=== PATIENT | female | born 1945 | race Caucasian/White ===

== ENCOUNTER 2024-08-06 08:25 | Outpatient (CLI) | payer MEDICARE, OTHER, SELFPAY ==
--- NOTE | ~2024-08-06 | CT_ITS ---
CT Scan of the Chest without Contrast: Clinical Indication: Interstitial lung disease Technique: Contiguous sections were acquired throughout the chest without intravenous contrast. Dose reduction technique was used on this scan by utilizing automated exposure control and iterative recon struction technique. The dose-length product (DLP) was 112.02 mGy-cm. Findings: There is no evidence of any significant mediastinal, hilar or axillary lymphadenopathy. There are ath erosclerotic calcifications of the aorta and coronary arteries. There is no evidence of pleural or pericardial effusion. There are extensive chronic interstitial disease, with peripheral and basilar predominance. There is a probable reticulation, interstitial thickening and architectural distortion, with mild bibasilar br onchiolectasis and early honeycomb formation. Images through the upper abdomen reveal no abnormalities. Mild T10 compression fracture present, poss ibly acute. Impression: Extensive chronic interstitial disease most compatible with UIP, significantly progressed since 2016. Mild T10 compression fracture, possibly acute. Correlate clinically. Reviewed, dictated and finalized at [facility]. Impression: Extensive chronic interstitial disease most compatible with UIP, significantly progressed since 07/14/2016. Mild T10 compression fracture, possibly acute. Correlate clinically.
--- OUTSIDE RECORDS SUMMARY | 2024-08-06 08:36 | XMS_ITS | Encounter Summary ---
Author Organization [facility] Address [address] [place] [address] Phone Care Team Providers Care Can Solderer Name Role Phone Naila Marroquin MD Primary Care Provider [phone]- [phone] Janine Bañuelos RN Unavailable UnaJohn Paul Sawant MD Unavailable [phone] Sindy Armstrong RN Unavailable Darlene vailable Reason for Referral * Procedure (Routine) - Closed Specialty Diagnoses / Procedures Referred By Jus lin Referred To Contact Diagnoses ILD (interstitial lung disease) (HCC) Procedures Pulmonary Function Test -[facility] Adult PFT Lab- [facility]; Spirometry, Oxygen Assessment Titration Lesli Richard MD [address] [place] [address] Phone: tel: fax: Referral ID Status Reason Start Date Expiration Date Visits Re quested Visits Authorized [id number] Closed 10/17/2022 11/16/2023 1 1 Reason for Visit * Procedure (Routine) - Closed Specialty Diagnoses / Procedures Referred By Jus lin Referred To Contact Diagnoses ILD (interstitial lung disease) (HCC) Procedures Pulmonary Function Test -[facility] Adult PFT Lab- [facility]; Spirometry, Oxygen Assessment Titration Lesli Richard MD [address] [facility] [facility] [address] [place] [address] Phone: tel: fax: Referral ID Status Reason Start Date Expiration Date Visits Re quested Visits Authorized [id number] Closed 10/17/2022 11/16/2023 1 1 Encounter Details Date Type Department Care Team (Latest Contact Info) Description 11/29/2022 9:24 AM CDT Hospital Encounter [facility] PFT Lab 10 [facility] [address] [place] [address] ILD (interstitial lung disease) ([facility]) Social History Tobacco Use Types Packs/Day Years Used Date Smoking Tobacco: Former Cigarettes Q uit: 1975 Smokeless Tobacco: Never Alcohol Use Standard Drinks/Week Comments Yes 5 (1 standard drink = 0.6 oz pur e alcohol) Social Connection and Isolat ion Panel [NHANES] Answer Date Recorded In a typical week, how many times do you talk on the phone with family, friends, or neighbors? More than three times a week 01/25/2023 How often do you get togethe r with friends or relatives? More than three times a week 01/25/2023 How often do you attend chur ch or yazdanism services? Never 01/25/2023 Do you belong to any clubs o r organizations such as anglican groups, unions, fraternal or athletic groups, or [...] on file Legal Sex Female 8:29 PM PROGRAM THERAPIST Gender Identity Female 09/24/2021 1:08 PM CDT Sexual Orientation Not on file Occupation Industry Job Start Date Job End Date Retired Not on file Not on file Not on file documented as of this encounter Functional Status * Audit-C Score Answer Date of Assessment Author 1 [...] on one occasion? Never 03/07/2023 1:29 PM PROGRAM THERAPIST Mackay, Jackie, ALUMNI COORDINATOR documented as of this encounter Plan of Treatment Not on file documented as of this encounter Procedures Procedure Name Priority Date/Time Associated Diagnosis Comments PULMONARY FUNCTION TEST (PFT) Routine 11/29/2022 10:00 AM CDT ILD (interstitial lung disease) (HCC) documented in this encounter Results * Pulmonary Function Test - (11/29/2022 10:00 AM CDT) FVC PRE 1.35 L [facility] FVC %PRE PRED 54 % [facility] FEV1 PRE 1.25 L [facility] FEV1 %PRE PRED 64 % [facility] FEV1/FVC PRE 92.6 % [facility] Anatomical Region Laterality Modality PFT 11/29/2022 9:27 AM CDT Narrative 12/04/2022 10:49 AM CDT Table formatting from the original result was not included. [facility] Division of Pulmonary & Critical Care Medicine [address] [place] [address]; [place] [address] [facility]; [place] [address]; [phone] Pulmonary Function Laboratory Pulmonary Stress Test Simple/Oxygen [...] Work [distance (m) x body wt (kg)]: 92343 kg.m (normal >60,000kg.m) Oxygen required to maintain [...] with the written final report. PFT performed at:->[facility] Adult [facility]FT [facility]- [facility] Procedure:->Spirometry Procedure:->Oxygen Assessment Titration Lesli Richard MD PFT ORDERABLES Final Result [...] days ago. 05/06/2023 05/06/2023 05/16/2023 3:05 AM PROGRAM THERAPIST COVID: Recovered Comment:Added based on recent COVID infection. 05/16/2023 05/23/2023 08/14/2023 3:05 AM C DT documented as of this encounter Care Teams Can Solderer Relationship Specialty Start Date End Date Naila Marroquin MD [address] [facility] [address] [place] [address] PCP - General 07/21/17 Janine Bañuelos, ophthalmology technician Nurse 08/02/18 John Paul Springer MD Consulting Physician Orthopedic Surgery 12/05/19 Sindy Armstrong, RN Registered Nurse Pulmonary Disease 03/23/22 documented as of this encounter
--- OUTSIDE RECORDS SUMMARY | 2024-08-06 08:36 | XMS_ITS | Encounter Summary ---
Author Organization [facility] Address [address] [place] [address] Phone Care Team Providers Care Appliance Assembler Name Role Phone Naila Marroquin MD Primary Care Provider [phone] Janine Bañuelos RN Unavailable UnavaJohn Paul Gillette MD Unavailable [phone] Sindy Armstrong RN Unavailable Darlene vailable Reason for Referral * Procedure (Routine) - Closed Specialty Diagnoses / Procedures Referred By Jus lin Referred To Contact Diagnoses ILD (interstitial lung disease) (HCC) Procedures Pulmonary Function Test -[facility]- [facility]; Spirometry, Oxygen Assessment Titration Lesli Richard MD [address] [place] [address] Phone: tel: fax: Referral ID Status Reason Start Date Expiration Date Visits Re quested Visits Authorized [id number] Closed 11/29/2022 12/29/2023 1 1 TING CONTROL CLERK Reason for Visit * Procedure (Routine) - Closed Specialty Diagnoses / Procedures Referred By Jus t Referred To Contact Diagnoses ILD (interstitial lung disease) (HCC) Procedures Pulmonary Function Test -[facility]- [facility]; Spirometry, Oxygen Assessment Titration Lesli Richard MD [address] [facility] [address] [place] [address] Phone: tel: fax: Referral ID Status Reason Start Date Expiration Date Visits Re quested Visits Authorized [id number] Closed 11/29/2022 12/29/2023 1 1 Encounter Details Date Type Department Care Team (Latest Contact Info) Description 03/21/2023 9:42 AM AUDITING CONTROL CLERK Hospital Encounter [facility] PFT Lab [address] [facility] [address] [place] [address] ILD (interstitial lung disease) ([facility] Social History Tobacco Use [...] often do you attend chur ch or jain services? Never 01/25/2023 Do you belong to any clubs o r organizations such as restorationism groups, unions, fraternal or athletic groups, or [...] on file Legal Sex Female 8:29 PM AUDITING CONTROL CLERK Gender Identity Female 09/24/2021 1:08 PM CDT [...] FUNCTION TEST (PFT) Routine 03/21/2023 10:53 AM AUDITING CONTROL CLERK ILD (interstitial lung disease) (HCC) documented in this encounter Results * Pulmonary Function Test - (03/21/2023 10:53 AM AUDITING CONTROL CLERK) FVC PRE 1.[address] [facility] FVC %PRE PRED 56 % [facility] FEV1 PRE 1.[address] [facility] FEV1 %PRE PRED 71 % [facility] FEV1/FVC PRE 96.9 % [facility] Anatomical Region Laterality Modality PFT 03/21/2023 9:59 AM AUDITING CONTROL CLERK Impressions 03/24/2023 3:13 PM AUDITING CONTROL CLERK There is a moderate restrictive ventilatory defect. [...] and %HbO2 is age dependent. However, the [facility] Pulmonary Function Laboratory defines hypoxemia as a PO2 <55 or a %HbO2 <89. Narrative 03/24/2023 3:13 PM AUDITING CONTROL CLERK Table formatting from the original result was not included. [facility] Division of Pulmonary & Critical Care Medicine [address] [place] [address]; [facility]; [place] [address]; [phone] Pulmonary Function Laboratory Pulmonary Stress Test Simple/Oxygen [...] Work [distance (m) x body wt (kg)]: 88401 kg.m (normal >60,000kg.m) Oxygen required to maintain [...] the written final report. PFT performed at:->[facility] Adult PFT Lab- [facility] Procedure:->Spirometry Procedure:->Oxygen Assessment Titration Pulmonary [...] days ago. 05/06/2023 05/06/2023 05/16/2023 3:05 AM AUDITING CONTROL CLERK COVID: Recovered Comment:Added based on recent COVID infection. 05/16/2023 05/23/2023 08/14/2023 3:05 AM C DT documented as of this encounter Care Teams Appliance Assembler Relationship Specialty Start Date End Date Naila Marroquin MD [address] [facility] [address] [place] [address] PCP - General 07/21/17 Janine Bañuelos, triage registered nurse Nurse 08/02/18 John Paul Springer MD Consulting Physician Orthopedic Surgery 12/05/19 Sindy Armstrong, RN Registered Nurse Pulmonary Disease 03/23/22 documented as of this encounter
--- OUTSIDE RECORDS SUMMARY | 2024-08-06 08:36 | XMS_ITS | Clinical Summary ---
Author Organization [facility] Address [address] [place] [address] Care Team Providers Care Carton Forming Machine Helper Name Role Phone Naila Marroquin MD Primary Care Provider [phone] Allergies Active Allergy Reactions Criticality Noted Date Comments Codeine Nausea and Vomiting 06/29/2017 Nitrofurantoin Shortness of Breath High 05/09/2017 Benzonatate Anaphylaxis High 06/29/2017 Medications levothyroxine 88 MCG tablet Take 88 mcg by mouth daily. Active topiramate (TOPAMAX) 50 MG Tab Take 1 tablet by mouth 2 (two) times daily. Active sertraline 100 MG tablet Take 100 mg by mouth daily. Active ziprasidone 20 MG capsule Take 20 mg by mouth 2 (two) times daily with meals. Active lamotrigine 150 MG tablet Take 150 mg by mouth daily. Active alprazolam 2 MG tablet Take 2 mg by mouth nightly as needed. Active zolpidem 10 MG tablet Take 10 mg by mouth nightly as needed for Sleep. Active cetirizine 10 MG tablet Take 10 mg by mouth daily. Active Isosorbide Mononitrate CR 120 MG TABLET SR 24 HR Take 1 tablet by mouth every morning. Active budesonide-formo terol 160-4.5 MCG/ACT inhaler Inhale 2 puffs into the lungs 2 (two) times daily. Active fluticasone-salm eterol 100-50 MCG/DOSE inhaler Inhale 1 puff into the lungs 2 (two) times daily. Active rosuvastatin (CRESTOR) 40 MG tablet Take 1 tablet (40 mg total) by mouth daily. Active pregabalin (LYRICA) 50 MG capsule Take 1 capsule (50 mg total) by mouth 3 (three) times daily. 06/12/2022 Active montelukast (SINGULAIR) 10 MG tablet Take 1 tablet (10 mg total) by mouth daily. 06/30/2022 Active pantoprazole EC (PROTONIX) 40 MG tablet Take 1 tablet (40 mg total) by mouth daily. Active topiramate (TOPAMAX) 25 MG capsule Take 1 capsule (25 mg total) by mouth 2 (two) times daily. Active famotidine (PEPCID) 40 MG tablet Take 1 tablet (40 mg total) by mouth daily. Active ezetimibe (ZETIA) 10 MG tablet Take 1 tablet (10 mg total) by mouth daily. 06/11/2022 Active dicyclomine (BENTYL) 10 MG capsule Take 1 capsule (10 mg total) by mouth 4 (four) times daily. Active cyanocobalamin (B-12) 1000 MCG/ML injection Inject 1 mL (1,000 mcg total) into the muscle. 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 Osteopenia 01/11/2023 Family History Medical History Relation Comments Cancer Father Diabetes Father Heart Disease Father Hypertension Father Cancer Mother Diabetes Mother Heart Disease Mother Hypertension Mother Relation Status Comments Father Mother Social History Tobacco Use Types Packs/Day Years Used Date Smoking Tobacco: Former Cigarettes Q uit: 1975 Smokeless Tobacco: Never Tobacco Cessation:Counseling Given: Not Answered Alcohol Use Standard Drinks/Week Comments Yes 0 (1 standard drink = 0.6 oz pur e alcohol) OCASSIONALLY Comments No Sex and Gender Information Value Date Recorded Sex Assigned at Not on file Legal Sex Female 7:15 PM CDT Gender Identity Not on file Sexual Orientation Not on file Last Filed Vital Signs Vital Sign Reading Time Taken Comments Blood Pressure 101/47 03/03/2023 1:35 PM CDT Pulse 67 03/03/2023 1:35 PM CDT Temperature 36.3 C (97.3 F) 03/03/2023 1:35 PM CDT Respiratory Rate 16 03/03/2023 1:35 PM CDT Oxygen Saturation 99% 03/03/2023 1:35 PM CDT Inhaled Oxygen Concentration - - Weight 57.6 kg (127 lb) 08/07/2022 1:54 PM CDT Height 157.5 cm (5' 2 ) 08/07/2022 1:54 PM CDT Body Mass Index 23.23 08/07/2022 1:54 PM CDT Plan of Treatment Health Maintenance Due Date Last Done Comments Hepatitis C 1963 DTaP, Tdap and Td Vaccines (1 - Tdap) 1964 Annual Medicare Wellness Visit 01/06/2012 Dexa Scan (General) 01/06/2012 Zoster Vaccines (2 of 2) 05/20/2019 03/25/2019 RSV Immunization or 60+ Years (1 - 1-dose 75+ series) 2022 COVID-19 Vaccine (2 - season) 2023 07/06/2020 Pneumococcal Vaccine: 65+ Years Completed 03/13/2018, 02/03/2017, 03/01/2016, Additional history exists Meningococcal B Vaccine Aged Out No l onger eligible based on patient's age to complete this topic Meningococcal Vaccine Aged Out No leandra bartolome eligible based on patient's age to complete this topic RSV Immunizations Under 20 Months Aged Out No longer eligible based on patient's age to complete this topic Insurance [facility] MEDICARE Care Teams Carton Forming Machine Helper Relationship Specialty Start Date End Date Naila Marroquin MD PCP - General 11/25/16
--- OUTSIDE RECORDS SUMMARY | 2024-08-06 08:36 | XMS_ITS | Encounter Summary ---
Author Organization [facility] Address [address] [place] [address] Care Team Providers Care Fiberglass Fabricator Name Role Phone Naila Marroquin MD Primary Care Provider [phone] Encounter Details Date Type Department Care Team (Late st Contact Info) Description 01/11/2023 Therapy Plan [facility] Infusion Services [facility] [place] [address] Naila Marroquin MD [address] [place] [id number] Social History Tobacco Use Types Packs/Day Years Used Date Smoking Tobacco: Former Cigarettes Q uit: 1975 Smokeless Tobacco: Never Alcohol Use Standard Drinks/Week Comments Yes 0 (1 standard drink = 0.6 oz pur e alcohol) OCASSIONALLY Comments No Sex and Gender Information Value Date Recorded Sex Assigned at Not on file Legal Sex Female 7:15 PM CDT Gender Identity Not on file Sexual Orientation Not on file documented as of this encounter Plan of Treatment Not on file documented as of this encounter Visit Diagnoses Diagnosis Osteopenia- Primary Disorder of bone and cartilage, unspecified documented in this encounter Care Teams Fiberglass Fabricator Relationship Specialty Start Date End Date Naila Marroquin MD PCP - General 11/25/16 documented as of this encounter
--- OUTSIDE RECORDS SUMMARY | 2024-08-06 08:37 | XMS_ITS | Encounter Summary ---
Author Organization [facility] Address [address] [place] [address] Phone Care Team Providers Care Chemotherapist Name Role Phone Naila Marroquin MD Primary Care Provider [phone] Janine Bañuelos RN Unavailable UnavaJohn Paul Gillette MD Unavailable [phone] Sindy Armstrong RN Unavailable Darlene vailable Reason for Referral * Procedure (Routine) - Closed Specialty Diagnoses / Procedures Referred By Contac t Referred To Contact Diagnoses ILD (interstitial lung disease) (HCC) Procedures Pulmonary Function Test -[facility]- [facility]; Spirometry, Oxygen Assessment Titration Lesli Richard MD [address] [place] [address] Phone: tel: fax: Referral ID Status Reason Start Date Expiration Date Visits Re quested Visits Authorized [id number] Closed 03/21/2023 04/19/2024 1 1 Reason for Visit * Procedure (Routine) - Closed Specialty Diagnoses / Procedures Referred By Contac t Referred To Contact Diagnoses ILD (interstitial lung disease) (HCC) Procedures Pulmonary Function Test -[facility]- [facility]; Spirometry, Oxygen Assessment Titration Lesli Richard MD [address] [facility] [address] [place] [address] Phone: tel: fax: Referral ID Status Reason Start Date Expiration Date Visits Re quested Visits Authorized [id number] Closed 03/21/2023 04/19/2024 1 1 Encounter Details Date Type Department Care Team (Latest Contact Info) Description 07/18/2023 9:06 AM CDT Hospital Encounter [facility] PFT Lab [address] [facility] [address] [place] [address] ILD (interstitial lung disease) ([facility]) Social History Tobacco Use Types Packs/Day Years [...] on file Legal Sex Female 8:29 PM ASP DEVELOPER Gender Identity Female 09/24/2021 1:08 PM CDT [...] 9:43 AM CDT) FVC PRE 1.25 L [facility] FVC %PRE PRED 52 % [facility] FEV1 PRE 1.16 L [facility] FEV1 %PRE PRED 63 % [facility] FEV1/FVC PRE 92.6 % [facility] Anatomical Region Laterality Modality PFT 07/18/2023 9:09 [...] and %HbO2 is age dependent. However, the [facility] Pulmonary Function Laboratory defines hypoxemia as a PO2 <55 or a %HbO2 <89. Narrative 07/19/2023 8:01 PM CDT Table formatting from the original result was not included. [facility] Division of Pulmonary & Critical Care Medicine [address] [place] [address]; [place] [facility]; [place] [address]; [phone] Pulmonary Function Laboratory Pulmonary Stress Test Simple/Oxygen [...] Work [distance (m) x body wt (kg)]: 05080 kg.m (normal >60,000kg.m) Oxygen required to maintain [...] written final report. PFT performed at:->[facility] Adult PFT Lab- [facility] Procedure:->Spirometry Procedure:->Oxygen Assessment Titration Pulmonary Function Test Interpretation SPIROMETRY: The FEV-I and FVC are reduced in a pattern suggestive of a restrictive abnormality. However, measurement of lung volumes is suggested to confirm this if clinically indicated. FLOW VOLUME LOOPS: The inspiratory loop is appropriate for the expiratory flow abnormality. 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 05/16/2023 05/23/2023 08/14/2023 3:05 AM C DT documented as of this encounter Care Teams Chemotherapist Relationship Specialty Start Date End Date Naila Marroquin MD [address] [facility] [address] [place] [address] PCP - General 07/21/17 Janine Bañuelos, tree girdler Nurse 08/02/18 John Paul Springer MD Consulting Physician Orthopedic Surgery 12/05/19 Sindy Armstrong, ALEXANDRA Registered Nurse Pulmonary Disease 03/23/22 documented as of this encounter
--- OUTSIDE RECORDS SUMMARY | 2024-08-06 08:37 | XMS_ITS | Clinical Summary ---
Author Organization [facility] al Address [address] [place] [address] Care Team Providers Care Ticket Machine Operator Name Role Phone Naila Marroquin MD Primary Care Provider [phone] Janine Bañuelos RN Unavailable Unajose martini John Paul David MD Unavailable Sindy Armstrong RN Unavailable Darlene vailable Allergies Active Allergy Reactions Criticality Noted Date Comments Benzonatate Nausea & Vomiting,Shortness of breath,Rash High 06/29/2017 Breathing Difficulty Codeine Nausea And Vomiting,Shortness of breath,Stomach upset,Unknown High 05/31/2012 Stomach/GI Upset Hydrocodone Other (See comments) Low 11/20/2019 causes little blood spots under my skin Nitrofurantoin Anaphylaxis,Joint pain,Shortness of breath,Unknown High 05/31/2012 Breathing Difficulty Nitrofurantoin Monohyd/M-Cryst Anaphylaxis High 10/27/2020 Medications montelukast (SINGULAIR) 10 mg tablet Take 1 tablet (10 mg total) by mouth nightly Active cyanocobalamin (Vitamin B-12) 1,000 mcg/mL injectionIndicatio ns:Vitamin B12 Deficiency Inject 1 mL (1,000 mcg total) into the muscle as instructed every 30 (thirty) days q monthly Active ALPRAZolam (XANAX) 1 mg tabletIndications: anxiety Take 1 tablet (1 mg total) by mouth 4 (four) times a day as needed for anxiety 3 8 Active polyethylene glycol (MIRALAX) 17 gram packetIndications: constipation Take 1 packet (17 g total) by mouth nightly Active cetirizine (ZyrTEC) 10 mg tabletIndications: Allergic Rhinitis Take 1 tablet (10 mg total) by mouth daily Active sertraline (ZOLOFT) 50 mg tabletIndications: depression Take 1 tablet (50 mg total) by mouth every morning 1 9 Active topiramate (TOPAMAX) 50 mg tabletIndications: depression Take 2 tablets (100 mg total) by mouth daily Active zolpidem (AMBIEN) 10 mg tabletIndications: Sleep-Onset Insomnia Take 1 tablet (10 mg total) by mouth nightly 0 Active ezetimibe (ZETIA) 10 mg tablet Take 1 tablet (10 mg total) by mouth daily 30 tablet 11 1 Active acetaminophen (TYLENOL) 500 mg tablet Take 1 tablet (500 mg total) by mouth every 8 (eight) hours as needed for pain Active aspirin 81 mg enteric coated tablet Take 1 tablet (81 mg total) by mouth daily Active ziprasidone (GEODON) 20 mg capsule Take 1 capsule (20 mg total) by mouth nightly Active pantoprazole DR (PROTONIX) 40 mg EC tablet Take 1 tablet (40 mg total) by mouth daily Active famotidine (PEPCID) 40 mg tablet Take 1 tablet (40 mg total) by mouth nightly Active immune glob,js caprylate,IgG, (GAMUNEX IV) Infuse into a venous catheter as directed Infusion every 28 days for autoimmune disease Active rosuvastatin (CRESTOR) 40 mg tablet Take 1 tablet (40 mg total) by mouth daily 1 Active inhalational spacing device spacer 1 each as needed (with inhaler) 1 each 2 Active pregabalin (LYRICA) 50 mg capsule Take 1 capsule (50 mg total) by mouth 2 (two) times a day Active denosumab (Prolia) 60 mg/mL syringe Every 6 months 3 Active ergocalciferol (VITAMIN D) 50,000 unit capsule 3 Active levothyroxine (SYNTHROID) 75 mcg tablet Take 1 tablet (75 mcg total) by mouth every morning 3 Active albuterol HFA (PROVENTIL HFA,VENTOLIN HFA,PROAIR HFA) 90 mcg/actuation inhaler Inhale 2 puffs every 6 (six) hours as needed for wheezing 1 each 5 4 Active nitroglycerin (NITROSTAT) 0.[address] 1 tablet (0.4 mg total) under the tongue every 5 (five) minutes as needed for chest pain 25 tablet 4 Active ziprasidone (GEODON) 40 mg capsule Take 1 capsule (40 mg total) by mouth nightly 4 Active ipratropium (ATROVENT) 21 mcg (0.03 %) nasal sprayIndications:N on-allergic rhinitis Administer 2 sprays into each nostril every 6 (six) hours 90 mL 3 4 Active BD Integra Syringe 3 mL 25 gauge x 5/8 syringe 4 Active isosorbide mononitrate ER (IMDUR) 60 mg 24 hr tablet Take 1 tablet (60 mg total) by mouth daily 4 Active traZODone (DESYREL) 50 mg tablet Take 1 tablet (50 mg total) by mouth 3 (three) times a day 4 Active carboxymethylcellu lose-glycern 0.5-0.9 % drops Administer into affected eye(s) 3 (three) times a day Active triamcinolone (NASACORT) 55 mcg nasal inhaler Administer 2 sprays into each nostril daily Active QUEtiapine (SEROquel) 25 mg tablet daily 4 Active mirtazapine (REMERON MIGUEL-TAB) 15 mg disintegrating tablet Take 1 tablet (15 mg total) by mouth nightly Active Active Problems Problem Noted Date Diagnosed Date Sepsis with acute organ dysf unction and septic shock, due to unspecified organism, unspecified type 01/24/2023 Compression fracture of lumbar vertebra 01/10/20 23 Compression fracture of thoracic vertebra 2022 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 12/27/2022 Mixed hyperlipidemia 02/25/2021 H/O syncope 02/25/2021 TIA (transient ischemic attack) 11/22/2020 UTI (urinary tract infection) 11/21/2020 Syncope and collapse 11/20/2020 Painful orthopaedic hardware 06/12/2020 Overview (06/12/2020): Added automatically from request for surgery [id number] Hallux valgus of left foot 11/05/2019 Overview (11/05/2019): Added automatically from request for surgery [id number] Non-allergic rhinitis 01/02/2018 Seasonal allergic rhinitis due to pollen 018 Moderate persistent asthma without complication 10/12/2017 Obstructive sleep apnea syndrome 07/04/2017 Overview (01/24/2023): mild on sleep study 10/2016 Diarrhea 04/04/2017 Hypothyroidism 11/07/2016 Hernia of anterior abdominal wall 10/25/2016 Anxiety 07/07/2016 Insomnia 07/07/2016 Tracheobronchomalacia 07/07/2016 Overview (01/24/2023): chronic cough per pulm notes 03/13/18 Urinary, incontinence, stress female 07/07/2016 Hypotension due to drugs 05/19/2016 Overview (08/04/2016): Hypotension, unspecified hypotension type Knee pain 03/30/2016 Gastroesophageal reflux disease 12/22/2015 Overview (08/04/2016): Gastroesophageal reflux disease, esophagitis presence not specified Benign hypertension 04/06/2015 Overview (08/04/2016): HTN (hypertension), benign Moderate episode of recurrent major depressive d isorder 04/06/2015 Overview (08/04/2016): Major depressive disorder, recurrent episode, moderate TRAN (dyspnea on exertion) 04/06/2015 Overview (08/04/2016): TRAN (dyspnea on exertion) 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) 04/06/2015 Overview (08/04/2016): Coronary artery disease involving asa'[place] coronary artery of asa[place]armiut heart with angina pectoris Irregular heart rhythm 04/06/2015 Overview (08/04/2016): Irregular heart beat Hypogammaglobulinemia 11/20/2014 Overview (10/25/2019): Hypogammaglobulinemia Depression 10/21/2014 Overview (08/04/2016): Depression ILD (interstitial lung disease) 06/26/2014 Resolved Problems Problem Noted Date Diagnosed Date Resolved Date CAP (community acquired pneumonia) 01/24/2023 07/19/2023 Cough 04/18/2019 11/21/2020 Assessment & Plan (04/18/2019 2:04 PM COMPUTER SYSTEMS SECURITY ANALYST): The patient has chronic cough is likely significantly multifactorial to include possible hypersensitivity, COPD, and her interstitial lung disease. Left-sided laryngeal nerve block performed today to address any hypersensitivity/neuropathic component. She will notify us if there's been any benefit. If this does not provide relief, then I'm unsure I have anything else to offer this patient given everything that's been previously tried. 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 04/02/2018 11/21/2020 Overview (04/02/2018): Added automatically from request for surgery [id number] Pain of right lower extremity 10/02/2017 11/21/2020 Right upper quadrant abdominal tenderness 10/25/2016 11/21/2020 Rapid palpitations 05/19/2016 Overview (08/04/2016): Rapid palpitations Dizziness 05/19/2016 11/21/2020 Overview (08/04/2016): Dizziness Chronic obstructive pulmonary disease 12/22/2015 07/19/2023 Overview (08/04/2016): Chronic obstructive pulmonary disease, unspecified COPD type Rib pain 08/07/2015 11/21/2020 Dyslipidemia 04/06/2015 11/22/2021 Overview (08/04/2016): Mixed dyslipidemia Abnormal finding on imaging 12/26/2014 11/21/2020 Hoarseness 05/02/2014 11/21/2020 Fibrosis of lung 11/20/2013 07/19/2023 Overview (08/04/2016): Pulmonary fibrosis Palpitations 11/20/2013 11/21/2020 Overview (08/04/2016): Palpitations Encounters Date Type Department Care Team Description 07/23/2024 12:30 PM CDT Infusion [facility] Infusion Therapy [address] [place] [address] [address] [place] [address] Hypogammaglobulinemia (Primary Dx) 07/19/2024 Telephone [facility] Pulmonary [address] [facility] Advanced Medicine 8th [place] [address] [place] [address] Lian Barnett CMA 07/19/2024 Telephone [facility] Pulmonary [address] [facility] 8th [place] [address] [place] [address] Sindy Armstrong RN 07/16/2024 12:00 PM CDT Office Visit [facility] Pulmonary [address] [address] [place] [address] Lesli Richard MD ILD (interstitial lung disease) (HCC) (Primary Dx); Hypogammaglobulinemia; Moderate episode of recurrent major depressive disorder (HCC) 07/16/2024 10:34 AM CDT - 07/16/2024 11:59 PM CDT Hospital Encounter [facility] PFT Lab [address] [facility] [address] [address] [place] [address] ILD (interstitial lung disease) ([facility]) Discharge Disposition: Discharge to home or self care 06/25/2024 4:07 PM COMPUTER SYSTEMS SECURITY ANALYST - 06/25/2024 11:59 PM COMPUTER SYSTEMS SECURITY ANALYST Hospital Encounter [facility] [address] [id number] Hypogammaglobulinemia Discharge Disposition: Discharge to home or self care 06/25/2024 1:40 PM COMPUTER SYSTEMS SECURITY ANALYST Office Visit [facility] Allergy and Immunology [address] [place] [address] [address] [place] [address] Debora Fitch MD Hypogammaglobulinemia (Primary Dx); CVID (common variable immunodeficiency) ([facility]); Moderate persistent asthma without complication 06/25/2024 12:30 PM COMPUTER SYSTEMS SECURITY ANALYST Infusion [facility] Infusion Therapy [address] [place] [address] [address] [place] [address] Hypogammaglobulinemia (Primary Dx) 05/24/2024 12:30 PM COMPUTER SYSTEMS SECURITY ANALYST Infusion [facility] Infusion Therapy [address] [place] [address] [address] [place] [address] Hypogammaglobulinemia (Primary Dx) from Last 3 Months Immunizations Immunization Administration Dates Next Due Influenza, Quadrivalent, Hig h Dose, Preservative Free, Intrr 03/30/2021 Influenza, Trivalent, Preservative Free, Intramu scular 02/12/2016 Influenza, Unspecified 02/12/2020 Moderna SARS-CoV-2 Monovalent Vaccination (12+ Y RS) 07/06/2020 Pneumococcal Conjugate PCV 13 03/01/2016 Pneumococcal Polysaccharide PPV23 02/03/2017,03/2013 Surgical History Surgery Date Site/Laterality Comments HYSTERECTOMY 1970's CHOLECYSTECTOMY 1979's BUNIONECTOMY 12/05/2019 Left BLADDER SURGERY 1989' chronic bladder pain - has nerve stimulator CARDIAC CATHETERIZATION Coronary Artery Disease mod nonobstructive 50-60% : COLONOSCOPY several UPPER GASTROINTESTINAL ENDOSCOPY Medical History Medical History Date Comments Depression Depression Gastroesophageal reflux disease GERD Hyperlipidemia PONV (postoperative nausea and vomiting) Hypothyroidism Darby esophagus Coronary artery disease Anxiety Allergic rhinitis Tracheobronchomalacia Bipolar disorder (HCC) Neuropathy Arthritis Lung disease Family History Medical History Relation Name Comments Asthma Brother 1 Family history of asthma - (Added by TW Conv) Heart disease Brother 1 COPD Brother 2 Emphysema/COPD - (Added by TW Conv) Arthritis Father Cancer Father Lung cancer Father Family history of lung cancer - (Added by TW Conv) Tremor Father Alzheimer's disease Mother Arthritis Mother Coronary artery disease Mother Yojana nary artery disease; had CABG at age 60 Diabetes Mother Heart disease Mother Hypertension Mother Tremor Mother Alzheimer's disease Sister 1 Breast cancer Sister 1 Family history of malignant neoplasm of breast - (Added by TW Conv) Cancer Sister 1 Colon cancer Sister 1 Diabetes Sister 1 Asthma Sister 2 Family history of asthma - (Added by TW Conv) Anesthesia problems Neg Hx Ovarian cancer Neg Hx Pancreatic cancer Neg Hx Prostate cancer Neg Hx Uterine cancer Neg Hx Relation Name Status Comments Brother 1 Brother 2 Father Mother Alive Sister 1 Sister 2 Social History Tobacco Use Types Packs/Day Years Used Date Smoking Tobacco: Former Cigarettes Q uit: 1975 Smokeless Tobacco: Never Tobacco Cessation:Counseling Given: Not Answered Alcohol Use Standard Drinks/Week Comments Yes 5 [...] 01/25/2023 How often do you attend chur or anglican services? Never 01/25/2023 Do you belong to any clubs o r organizations such as islam groups, unions, fraternal or athletic groups, or [...] place to sleep or slept in a detention (including now)? No 01/25/2023 Personal Safety Answer Date Recorded Have you ever been in or are you currently in a harmful physical or emotional relationship or is someone making you feel afraid or unsafe? Denies 05/06/2023 Comments No Sex and Gender Information Value Date Recorded Sex Assigned at Not on file Legal Sex Female 8:29 PM COMPUTER SYSTEMS SECURITY ANALYST Gender Identity Female 09/24/2021 1:08 PM CDT Sexual Orientation Not on file Occupation Industry Job Start Date Job End Date Retired Not on file Not on file Not on file Obstetrics History Para Term AB IAB SAB Ectopic Multiple Livin g Live Births 2 2 2 Date Outcome GA Total Labor Labor/2nd/3rd Weight Sex Type Anes PTL Vilma A1 A5 Name Clin Para Vag-Spo nt Para Vag-Spo nt Last Filed Vital Signs Vital Sign Reading Time Taken Comments Blood Pressure 114/74 07/23/2024 2:35 PM CDT Pulse 68 07/23/2024 2:35 PM CDT Temperature 36.8 C (98.2 F) 07/23/2024 2:35 PM CDT Respiratory Rate 20 10/31/2023 10:21 AM CDT Oxygen Saturation 94% 07/16/2024 11:07 AM CDT Inhaled Oxygen Concentration - - Weight 53.5 kg (118 lb) 07/16/2024 11:07 AM CDT Height 154.9 cm (5' 1 ) 07/16/2024 11:07 AM CDT Body Mass Index 22.3 07/16/2024 11:07 AM CDT Plan of Treatment Health Maintenance Due Date Last Done Comments Depression Screening 1945 Hepatitis C Screening 1945 Hepatitis B Screening 1963 Covid-19 Vaccine (2 - Modern a risk series) 08/03/2020 07/06/2020 Well Visit 65+ 05/21/2022 05/21/2021 Fall Risk Assessment 01/28/2024 01/27/2023 Osteoporosis Screening-Bone Density Scan 04/06/2024 04/06/2022, 01/13/2022, 07/21/2021, Additional history exists Influenza Vaccine (Season Ended) 2024 03/01/2022, 03/30/2021, 02/25/2020, Additional history exists DTaP/Tdap/Td Vaccine (4 - Td or Tdap) 11/29/2028 11/29/2018, 07/27/2018, 11/07/2016 Colon Cancer Screening-CT Colonography Discontinued 05/23/2017 Colon Cancer Screening-Colonoscopy Discontinued 05/23/2017 Colon Cancer Screening-DNA Stool Discontinued 05/23/19 18 Colon Cancer Screening-FIT Discontinued 05/23/2017 Colon Cancer Screening-FOBT Discontinued 05/23/2017 Colon Cancer Screening-Sigmoidoscopy Discontinued 05/23/2017 Colorectal Cancer Screening Discontinued Pneumococcal vaccine 65+ Completed 018, 02/03/2017, 03/01/2016, Additional history exists Zoster Vaccine Completed 03/25/2019, 12/30, 11/26/2018, Additional history exists Breast Cancer Screening-Mammogram Discontinued 06/01/2023, 09/03/2021, 06/02/2020, Additional history exists Medical Devices Implanted Type Area Patternmaker Plaster And Plastic Device Identifier Shelf Expiration Date Model / Serial / Lot Nerve Stimulator-Ernie lin Hip Description:Not active [employer] [id number] Bit 2.5mm Drill Cannulated Ao Quick Connect Color Coded - [id number] Implanted:Qty: 1 on 12/05/2019 at [facility] Left: Foot [employer] [id number] / / [email or web address] [id number] Screw Bone Medline Unite L18mm Od3.5mm Foot Ankle Nonlock - [id number] Implanted:Qty: 1 on 12/05/2019 by John Paul Springer MD at [facility] [email or web address] [id number] / / [email or web address] [id number] Screw Bone Medline Unite L38mm Od3.5mm Head Nonsterile - [id number] Implanted:Qty: 1 on 12/05/2019 by John Paul Springer MD at [facility] Left: Foot [email or web address] [id number] / / Explanted Type Area Patternmaker Plaster And Plastic Device Identifier Shelf Expiration Date Model / Serial / Lot [email or web address] [id number] Screw Bone Medline Unite L12mm Od2.7mm Foot Ankle Nonlock - [id number] Implanted:Qty: 1 Explanted:Qty: 1 on 12/05/2019 at [facility] Left: Foot [email or web address] [id number] / / [email or web address] [id number] Screw Bone Medline Unite L14mm Od2.7mm Foot Ankle Nonlock - [id number] Explanted:Qty: 1 on 12/05/2019 at [facility] Left: Foot [email or web address] [id number] / / [email or web address] [id number] Pin Fixation Medline Unite L10mm Od1.1mm - [id number] Implanted:Qty: 2 on 12/05/2019 at [facility] Explanted:Qty: 2 on 06/23/2020 at [facility] Left: Foot [email or web address] [id number] / / [email or web address] [id number] Plate Bone Medline Unite 5 D Medium Metatarsophalangeal Left Fusion Nonsterile - [id number] Implanted:Qty: 1 on 12/05/2019 by John Paul Springer MD at [facility] Explanted:Qty: 1 on 06/23/2020 at [facility] Left: Foot [email or web address] [id number] / / [email or web address] [id number] Screw 16mm 2.7mm Bone Medline Unite Foot Ankle Lock - [id number] Implanted:Qty: 1 on 12/05/2019 by John Paul Springer MD at [facility] Explanted:Qty: 1 on 06/23/2020 at [facility] Left: Foot [employer] [id number] / / [employer] [id number] Screw 12mm 3.5mm Bone Medline Unite Foot Ankle Lock - [id number] Implanted:Qty: 1 on 12/05/2019 by John Paul Springer MD at [facility] Explanted:Qty: 1 on 06/23/2020 at [facility] Left: Foot [employer] [id number] / / [employer] [id number] Screw 18mm 3.5mm Bone Medline Unite Foot Ankle Lock - [id number] Implanted:Qty: 3 on 12/05/2019 by John Paul Springer MD at [facility] Explanted:Qty: 3 on 06/23/2020 at [facility] Left: Foot [employer] [id number] / / Procedures Procedure Name Priority Date/Time Associated Diagnosis Comments PULMONARY FUNCTION TEST (PFT) Routine 07/16/2024 11:02 AM CDT ILD (interstitial lung disease) (HCC) IGG Routine 06/25/2024 12:40 PM COMPUTER SYSTEMS SECURITY ANALYST Hypogammaglobulin emia SCREENING MAMMOGRAM BILATERAL W DONY Schedule Routine, Read Routine (OP Routine) 06/01/2023 12:25 PM COMPUTER SYSTEMS SECURITY ANALYST Screening mammogram, encounter for DEXA AXIAL SKELETON BONE DENSITY 1 OR MORE SITES Schedule Routine, Read Routine (OP Routine) 01/13/2022 1:17 PM CDT Asymptomatic menopausal state COLONOSCOPY REPORT 05/23/2017 from Last 3 Months or Most Recently Relevant to Health Maintenance Results * Pulmonary Function Test - (07/16/2024 11:02 AM CDT) FVC PRE 1.28 L [facility] FVC %PRE PRED 55 % [facility] FEV1 PRE 1.19 L [facility] FEV1 %PRE PRED 66 % [facility] FEV1/FVC PRE 92.9 % [facility] Anatomical Region Laterality Modality PFT 07/16/2024 10:3 5 AM CDT Narrative 07/16/2024 4:41 PM CDT Table formatting from the original result was not included. [facility] Division of Pulmonary & Critical Care Medicine [address] [place] [address]; [place] [address]; [place] [address]; [phone] Pulmonary Function Laboratory Pulmonary Stress Test Simple/Oxygen Assessment Patient: Angelia Ca Date: 07/16/2024 : 1945 Ht: 61 inches Wt: 118 lbs Time (min) Distance (ft)/ Witt O2 L/M SpO2 HR Alicia* BP FEV1 % Pred Rest: RA 98 64 5 125/61 1.19 66 % Walk/Bike: 1 RA 97 91 3 2 RA 95 94 3 3 RA 93 96 4 4 RA 92 101 4 5 RA 93 109 5 6 min 0 sec RA 91 105 5 Recovery: 1 RA 93 101 7 116/80 1.13 63% 3 RA 96 94 *Alicia rate of perceived exertion (1-10 dyspnea scale) Wallace, CHEST 2003; [id number] Walk Test Summary: Six Minute Walk Distance: 1125 ft Six-minute Walk Work [distance (m) x body wt (kg)]: 18,320 kg.m (normal >60,000kg.m) Oxygen required to maintain SpO2 greater than 90% during six minutes of walking: L/M Comments: Interpretation: Breathing room air, SpO2 is normal at rest and during exercise sufficient to increase pulse, SpO2 falls but remains normoxemic . On this basis, SpO2 is adequate at rest breathing room air and while walking breathing room air. This level of exercise is associated with no significant change of FEV1. By signing this report, the attending pulmonary physician certifies that he/she has personally reviewed and interpreted the graphic and numerical data associated with this pulmonary function study and has reviewed and /or edited a preliminary draft report and agrees with the written final report. PFT performed at:->[facility] Adult PFT Lab- [facility] Procedure:->Spirometry Procedure:->Oxygen Assessment Titration Pulmonary Function Test Interpretation SPIROMETRY: The FEV1 and FVC are reduced in a pattern suggestive of a restrictive abnormality. The inspiratory loop is suggestive of submaximal effort. Impression: There is a moderate restrictive ventilatory defect. However, measurement of lung volumes is suggested to confirm this if clinically indicated. Compared with most recent study, there has been no significant interval change. The attending pulmonary physician certifies a physician presence in the [facility] Suite during the administration of aerosolized bronchodilator. The attending pulmonary physician certifies that he/she has reviewed and interpreted the graphic and numerical data of this pulmonary function study and agrees with the written final report. The lower limit of normal for PaO2 and %HbO2 is age dependent. However, the [facility] Pulmonary Function Laboratory defines hypoxemia as a PaO2 <56 mm Hg or a %HbO2 <89%. Starting on May of 2024 the [facility] Pulmonary Function Laboratory utilizes race neutral GLI Global normative equations. Lesli Richard MD PFT ORDERABLES Final Result * IgG (06/25/2024 12:40 PM COMPUTER SYSTEMS SECURITY ANALYST) Immunoglobulin G 998 700 - 1,600 mg/dL Comment:Testing performed by : [facility], [facility], [place]., [address] Blood 06/25/2024 12:4 0 PM COMPUTER SYSTEMS SECURITY ANALYST 06/25/2024 6:29 PM COMPUTER SYSTEMS SECURITY ANALYST Debora Fitch MD LAB BLOOD ORDERABLES Final Res ult Performing Organization Address City/State/[facility] Co md Phone Number [facility] [id number] [facility] [address] * Screening Mammogram Bilateral W Dony (06/01/2023 12:25 PM COMPUTER SYSTEMS SECURITY ANALYST) Anatomical Region Laterality Modality Breast Bilateral Mammography Impressions 06/01/2023 1:40 PM COMPUTER SYSTEMS SECURITY ANALYST BI-RADS ATLAS category (overall): 2 - Benign There is no mammographic evidence of malignancy. A 1 year screening mammogram is recommended. The patient has been or will be contacted. We recommend annual screening mammography for women at average risk of breast cancer beginning at age 40, based on guidelines of the [employer] (ACR Practice Parameter for the Performance of Screening and Diagnostic Mammography) and [employer]. For women with and elevated risk of breast cancer, please refer to the ACR Practice Parameter for specific screening recommendations. The patient will be entered into a reminder system with a target due date of 1 year for her next screening exam. Narrative 06/01/2023 1:40 PM COMPUTER SYSTEMS SECURITY ANALYST Screening Mammogram Bilateral W Dony: 06/01/23 The study was acquired using full field digital technology and interpreted from soft copy. 2D digital mammographic views, as well as 3D digital tomosynthesis were performed in the CC and MLO projections. CLINICAL: Screening mammogram, encounter for. No relevant medical history has been documented for this patient. History of breast cancer in Sister. COMPARISONS: 09/03/2021 Screening Mammogram Bilateral W Dony 06/02/2020 Screening Mammogram Bilateral W Dony 01/22/2019 Screening Mammogram Bilateral W Dony 04/11/2017 Screening Mammogram Bilateral W Dony BREAST TISSUE: The breasts are heterogeneously dense, which may obscure small masses. FINDINGS: There are benign calcifications in both breasts. No suspicious masses, suspicious calcifications, or other suspicious findings are seen within either breast. There has been no suspicious change. us Self Screening Mammogram IMG MAMMO PROCEDURES Fi nal Result * Dexa Axial Skeleton Bone Density 1 or 2 Site (01/13/2022 1:17 PM CDT) Anatomical Region Laterality Modality Body N/A Mammography 01/13/2022 11:1 7 PM CDT Narrative 01/13/2022 11:19 PM CDT EXAM DESCRIPTION: DEXA AXIAL SKELETON BONE DENSITY 1 OR MORE SITES REASON FOR STUDY: 77 y/o year old F with given history of screening. 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 FINDINGS: AP LUMBAR SPINE L1-L4: Total BMD is 1.054 g/cm2 T-score is 0.1 LEFT HIP: Total BMD is 0.800 g/cm2 T-score is -1.2 Femoral neck BMD is 0.626 g/cm2 T-score is -2.0 FRAX: 10 year risk for a major osteoporotic fracture is 15 %, 10 year risk for a hip fracture is 4.7 % IMPRESSION: Based on the left femoral neck bone mineral density (T-score -2.0 ) the patient has low bone mass . REFERENCE: Bone mineral density: Normal (T-score above or = -1.0) Low bone mass (T-score between -1.0 and -2.5) replaces the previously used term osteopenia Osteoporosis (T-score = or below -2.5) Medical evaluation for secondary causes of low bone mineral density may be appropriate. FRAX is a World Health Organization validated fracture risk assessment tool that calculates a person's 10 year probability of a major osteoporosis related fracture and hip fracture. According to the National Osteoporosis Foundation guidelines, postmenopausal women and men age 50 or older with low bone mass and a 10 year probability of a major osteoporosis related fracture = or greater than 20% or a 10 year probability of a hip fracture = or greater than 3% should be considered for treatment. For further information, including treatment recommendations, please refer to the 2013 ISCD Official Positions (http://www.iscd.org) and the NOF's Clinician's Guide to Prevention and Treatment of Osteoporosis (http://www.nof.org/professionals/clinical-guidelines) THIS IS AN ELECTRONICALLY VERIFIED FINAL REPORT 01/13/2022 11:19 PM - Electronically signed by Sriram Casiano M.D. MF: [email or web address] Report ID: [id number] Reading Location: [id number] Procedure Note Sriram Casiano MD - 01/13/2022 EXAM DESCRIPTION: DEXA AXIAL SKELETON BONE DENSITY 1 OR MORE SITES REASON FOR STUDY: 77 y/o year old F with given history ofscreening. 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 FINDINGS: AP LUMBAR SPINE L1-L4: Total BMD is 1.054 g/cm2 T-score is 0.1 LEFT HIP: Total BMD is 0.800 g/cm2 T-score is -1.2 Femoral neck BMD is 0.626 g/cm2 T-score is -2.0 FRAX: 10 year risk for a major osteoporotic fracture is 15 %, 10 year risk for ahip fracture is 4.7 % IMPRESSION: Based on the left femoral neck bone mineral density(T-score -2.0 ) the patient has low bone mass . REFERENCE: Bone mineral density: Normal (T-score above or = -1.0) Low bone mass (T-score between -1.0 and -2.5) replaces thepreviously used term osteopenia Osteoporosis (T-score = or below -2.5) Medical evaluation for secondary causes of low bone mineral density may be appropriate. FRAX is a World Health Organization validated fracture risk assessmenttool that calculates a person's 10 year probability of a major osteoporosisrelated fracture and hip fracture. According to the National OsteoporosisFoundation guidelines, postmenopausal women and men age 50 or older with low bonemass and a 10 year probability of a major osteoporosis related fracture = or greater than 20% or a 10 year probability of a hip fracture = or greaterthan 3% should be considered for treatment. For further information, including treatment recommendations, please referto the 2013 ISCD Official Positions (http://www.iscd.org) and the NOF's Clinician's Guide to Prevention and Treatment of Osteoporosis (http://www.nof.org/professionals/clinical-guidelines) THIS IS AN ELECTRONICALLY VERIFIED FINAL REPORT 01/13/2022 11:19 PM - Electronically signed by Sriram Casiano M.D. MF: [email or web address] Report ID: [id number] Reading Location: [place] [address] Naila Marroquin MD IMG DXA PROCEDURES Final R esult * COLONOSCOPY REPORT (05/23/2017) Anatomical Region Laterality Modality Other Provider Scanning GI PROCEDURE ORDERABLES Final Result from Last 3 Months or Most Recently Relevant to Health Maintenance Insurance MEDICARE MEDICARE [facility] MEDICARE [facility] MEDICARE [facility] MEDICARE [facility] Advance Directives For more information, please contact: [phone] * Full Code (Latest Code Status on File) Date Activated Date Inactivated Comments 01/24/2023 1:55 PM 01/27/2023 8:39 PM * Full Code Date Activated Date Inactivated Comments 11/21/2020 12:31 AM 11/23/2020 11:07 PM * Full Code Date Activated Date Inactivated Comments 07/06/2018 9:12 AM 07/06/2018 2:51 PM * Full Code Date Activated Date Inactivated Comments 06/05/2018 9:28 AM 06/05/2018 3:17 PM Care Teams Ticket Machine Operator Relationship Specialty Start Date End Date Naila Marroquin MD [address] [facility] [address] [place] [address] PCP - General 07/21/17 Janine Bañuelos, brush maker Nurse 08/02/18 John Paul Springer MD Consulting Physician Orthopedic Surgery 12/05/19 Sindy Armstrong, ALEXANDRA Registered Nurse Pulmonary Disease 03/23/22
--- OUTSIDE RECORDS SUMMARY | 2024-08-06 08:37 | XMS_ITS | Encounter Summary ---
Author Organization [facility] Address [address] [address] Care Team Providers Care Supervisor Fireworks Assembly Name Role Phone Debora Fitch MD Primary Care Provider [phone] Miscellaneous, Not In File Primary Care Provider Unavailable Debora Fitch MD Primary Care Provider [phone] Naila Marroquin MD Primary Care Provider [phone] Debora Fitch MD Primary Care Provider Naila Marroquin MD Primary Care Provider Debora Fitch MD Primary Care Provider Naila Marroquin MD Primary Care Provider Debora Fitch MD Primary Care Provider Naila Marroquin MD Primary Care Provider + [phone] Debora Fitch MD Primary Care Provider Naila Marroquin MD Primary Care Provider Debroa Fitch MD Primary Care Provider Naila Marroquin MD Primary Care Provider Debora Fitch MD Primary Care Provider [phone] Naila Marroquin MD Primary Care Provider [phone] Debora Fitch MD Primary Care Provider [phone] Naila Marroquin MD Primary Care Provider [phone] Janine Bañuelos RN Unavailable UnaJohn Paul Sawant MD Unavailable [phone] Sindy Armstrong RN Unavailable Darlene vailable Encounter Details Date Type Department Care Team (Late st Contact Info) Description 06/03/2016 Orders Only [facility] Provider, MD Sherif [address] [place] [id number] Social History Tobacco Use Types Packs/Day Years Used Date Smoking Tobacco: Former Cigarettes Q uit: 05/01/1974 Alcohol Use Standard Drinks/Week Comments Yes 0 (1 standard drink = 0.6 oz pur e alcohol) Comments Unknown Sex and Gender Information Value Date Recorded Sex Assigned at Not on file Legal Sex Female 8:29 PM MONOGRAM TECHNICIAN Gender Identity Female 09/24/2021 1:08 PM CDT Sexual Orientation Not on file documented as of this encounter Plan of Treatment Not on file documented as of this encounter Procedures Procedure Name Priority Date/Time Associated Diagnosis Comments CARDIOLOGY REPORT 06/03/2016 documented in this encounter Results * CARDIOLOGY REPORT (06/03/2016) Anatomical Region Laterality Modality Other Narrative 06/03/2016 Ordered by an unspecified provider. Historical Provider [facility] JAMES LADD Final Result documented in this encounter Visit Diagnoses Not on filedocumented in this encounter Additional Health Concerns Infection Onset Date Last Indicated Resolved Time COVID: Suspected 05/28/2021 05/28/2021 05/28/2021 3:42 PM MONOGRAM TECHNICIAN COVID: Suspected 01/24/2023 01/24/2023 01/24/2023 1:28 AM CDT COVID: Suspected 01/24/2023 01/25/2023 01/25/2023 11:46 AM CDT COVID19 Comment:COVID + on home test. Symptoms started 3 days ago. 05/06/2023 05/06/2023 05/16/2023 3:05 AM MONOGRAM TECHNICIAN COVID: Recovered Comment:Added based on recent COVID infection. 05/16/2023 05/23/2023 08/14/2023 3:05 AM C DT documented as of this encounter Care Teams Supervisor Fireworks Assembly Relationship Specialty Start Date End Date Debora Fitch MD [address] [address] PCP - General 08/19/16 11/03/16 Miscellaneous, Not In File PCP - General 11/04/16 11/07/16 Debora Fitch MD [address] [address] PCP - General 11/08/16 11/17/16 Naila Marroquin MD [address] [place] [address] PCP - General 11/18/16 11/21/16 Debora Fitch MD [address] [address] PCP - General 11/22/16 11/22/16 Naila Marroquin MD [address] [place] [address] PCP - General 11/23/16 11/26/16 Debora Fitch MD [address] [address] PCP - General 11/27/16 01/03/17 Naila Marroquin MD [address] [place] [address] PCP - General 01/04/17 01/26/17 Debora Fitch MD [address] [facility] [place] [address] PCP - General 01/27/17 02/06/17 Naila Marroquin MD [address] [place] [address] PCP - General 02/07/17 02/13/17 Debora Fitch MD [address] [facility] [address] [address] PCP - General 02/14/17 04/04/17 Niala Marroquin MD [address] [place] [address] PCP - General 04/05/17 04/05/17 Debora Fitch MD [address] [facility] [address] [address] PCP - General 04/06/17 05/18/17 Naila Marroquin MD [address] [place] [address] PCP - General 05/19/17 06/11/17 Debora Fitch MD [address] [address] PCP - General 06/12/17 06/14/17 Naila Marroquin MD [address] [place] [address] PCP - General 06/15/17 07/12/17 Debora Fitch MD [address] [facility] [address] [place] [address] PCP - General 07/13/17 07/20/17 Naila Marroquin MD [address] [place] [address] PCP - General 07/21/17 Janine Bañuelos, director of strategic partnerships Nurse 08/02/18 John Paul Springer MD Consulting Physician Orthopedic Surgery 12/05/19 Sindy Armstrong, ALEXANDRA Registered Nurse Pulmonary Disease 03/23/22 documented as of this encounter
--- OUTSIDE RECORDS SUMMARY | 2024-08-06 08:37 | XMS_ITS | Referral Summary ---
Author Organization [facility] Address [address] [place] [address] Care Team Providers Care Staff Technologist Name Role Phone Niala Marroquin MD Primary Care Provider [phone] Janine Bañuelos RN Unavailable John Paul Lucas MD Unavailable [phone] Sindy Armstrong RN Unavailable Darlene vailable Encounters Date Type Department Care Team Description 07/23/2024 12:30 PM CDT Infusion [facility] Infusion Therapy [address] [place] [address] Medical Office Building 2 [address] [place] [phone] Hypogammaglobulinemia (Primary Dx) 07/19/2024 Telephone [facility] Pulmonary [address] [facility] 8th [place] [address] [place] [id number] Lian Barnett CMA 07/19/2024 Telephone [facility] Pulmonary [address] [facility] 8th [place] [address] [place] [address] Sindy Armstrong, ALEXANDRA 07/16/2024 12:00 PM CDT Office Visit [facility] Pulmonary [address] [facility] Office Building [address] [place] [id number] Lesli Richard MD ILD (interstitial lung disease) (HCC) (Primary Dx); Hypogammaglobulinemia; Moderate episode of recurrent major depressive disorder (HCC) 07/16/2024 10:34 AM CDT - 07/16/2024 11:59 PM CDT Hospital Encounter [facility] PFT Lab [address] [facility] Office Building [address] [place] [address] ILD (interstitial lung disease) ([facility]) Discharge Disposition: Discharge to home or self care 06/25/2024 4:07 PM CAR UNLOADER - 06/25/2024 11:59 PM CAR UNLOADER Hospital Encounter [facility] [address] [place] [address] Hypogammaglobulinemia Discharge Disposition: Discharge to home or self care 06/25/2024 12:30 PM CAR UNLOADER Infusion [facility] Infusion Therapy [address] [place] [address] Building [address] [place] [address] Hypogammaglobulinemia (Primary Dx) 06/25/2024 1:40 PM CAR UNLOADER Office Visit [facility] Allergy and Immunology [address] [place] [address] Building 2 [facility] [address] [place] [address] Debora Fitch MD Hypogammaglobulinemia (Primary Dx); CVID (common variable immunodeficiency) ([facility]); Moderate persistent asthma without complication 05/24/2024 12:30 PM CAR UNLOADER Infusion [facility] Infusion Therapy [address] [place] [address] Building 2 [facility] [address] [place] [address] Hypogammaglobulinemia (Primary Dx) from Last 3 Months Allergies Active Allergy Reactions Criticality Noted Date [...] (06/12/2020): Added automatically from request for surgery [id number] Hallux valgus of left foot 11/05/2019 Overview (11/05/2019): Added automatically from request for surgery [id number] Non-allergic rhinitis 01/02/2018 Seasonal allergic rhinitis due [...] artery 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 ([facility]) 04/06/2015 Overview (08/04/2016): 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 Irregular heart rhythm 04/06/2015 Overview (08/04/2016): Irregular heart beat Hypogammaglobulinemia 11/20/2014 Overview (10/25/2019): Hypogammaglobulinemia Depression 10/21/2014 Overview (08/04/2016): Depression ILD (interstitial lung disease) 06/26/2014 Resolved Problems Problem Noted Date Diagnosed Date Resolved Date CAP (community acquired pneumonia) 01/24/2023 07/19/2023 Cough 04/18/2019 11/21/2020 Assessment & Plan (04/18/2019 2:04 PM CAR UNLOADER): The patient has chronic cough is likely [...] (07/04/2018): Added automatically from request for surgery [id number] Gastroesophageal reflux dise ase with esophagitis 04/02/2018 11/21/2020 Overview (04/02/2018): Added automatically from request for surgery [id number] 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 04/02/2018 11/21/2020 Overview (04/02/2018): Added automatically from request for surgery [id number] Pain of right lower extremity 10/02/2017 11/21/2020 [...] fibrosis Palpitations 11/20/2013 11/21/2020 Overview (08/04/2016): Palpitations Immunizations Immunization Administration Dates Next Due Influenza, Quadrivalent, Hig h Dose, Preservative Free, Intrr 03/30/2021 Influenza, Trivalent, Preservative Free, Intramu scular 02/12/2016 Influenza, Unspecified 02/12/2020 Moderna SARS-CoV-2 Monovalent Vaccination (12+ Y RS) 07/06/2020 Pneumococcal Conjugate PCV 13 03/01/2016 Pneumococcal Polysaccharide PPV23 02/03/2017,03/2013 Social History Tobacco Use Types Packs/Day Years [...] often do you attend chur ch or mosque services? Never 01/25/2023 Do you belong to [...] on file Legal Sex Female 8:29 PM CAR UNLOADER Gender Identity Female 09/24/2021 1:08 PM CDT Sexual Orientation Not on file Occupation Industry Job Start Date Job End Date Retired Not on file Not on file Not on file Last Filed Vital Signs [...] 07/16/2024 11:07 AM CDT Plan of Treatment Not on file Medical Devices Implanted Type Area Vocational Placement Specialist Device Identifier Shelf Expiration Date Model / Serial / Lot Nerve Stimulator-Righ t Hip Description:Not active ResoServ [id number] Bit 2.5mm Drill Cannulated Ao Quick Connect Color Coded - [id number] Implanted:Qty: 1 on 12/05/2019 at [facility] Left: Foot ResoServ [id number] / / ResoServ [id number] Screw Bone Medline Unite L18mm Od3.5mm Foot Ankle Nonlock - [id number] Implanted:Qty: 1 on 12/05/2019 by John Paul Springer MD at [facility] ResoServ [id number] / / ResoServ [id number] Screw Bone Medline Unite L38mm Od3.5mm Head Nonsterile - [id number] Implanted:Qty: 1 on 12/05/2019 by John Paul Springer MD at [facility] Left: Foot ResoServ [id number] / / Explanted Type Area Vocational Placement Specialist Device Identifier Shelf Expiration Date Model / Serial / Lot Biocartis Inc [id number] Screw Bone Medline Unite L12mm Od2.7mm Foot Ankle Nonlock - [id number] Implanted:Qty: 1 Explanted:Qty: 1 on 12/05/2019 at [facility] Left: Foot [employer] [id number] / / Medline Libre[employer] Inc [id number] Screw Bone Medline Unite L14mm Od2.7mm Foot Ankle Nonlock - [id number] Explanted:Qty: 1 on 12/05/2019 at [facility] Left: Foot [employer] [id number] / / Medline [employer] [id number] Pin Fixation Medline Unite L10mm Od1.1mm - [id number] Implanted:Qty: 2 on 12/05/2019 at [facility] Explanted:Qty: 2 on 06/23/2020 at [facility] Left: Foot [employer] [id number] / / Medline [employer] [id number] Plate Bone Medline Unite 5 D Medium Metatarsophalangeal Left Fusion Nonsterile - [id number] Implanted:Qty: 1 on 12/05/2019 by John Paul Springer MD at [facility] Explanted:Qty: 1 on 06/23/2020 at [facility] Left: Foot Medline [employer] [id number] / / Biocartis Inc [id number] Screw 16mm 2.7mm Bone Medline Unite Foot Ankle Lock - [id number] Implanted:Qty: 1 on 12/05/2019 by John Paul Springer MD at [facility] Explanted:Qty: 1 on 06/23/2020 at [facility] Left: Foot [employer] [id number] / / Medline [employer] [id number] Screw 12mm 3.5mm Bone Medline Unite Foot Ankle Lock - [id number] Implanted:Qty: 1 on 12/05/2019 by John Paul Springer MD at [facility] Explanted:Qty: 1 on 06/23/2020 at [facility] Left: Foot [employer] [id number] / / Medline [employer] [id number] Screw 18mm 3.5mm Bone Medline Unite Foot Ankle Lock - [id number] Implanted:Qty: 3 on 12/05/2019 by John Paul Springer MD at [facility] Explanted:Qty: 3 on 06/23/2020 at [facility] Left: Foot ResoServ [id number] / / Procedures Procedure Name Priority Date/Time Associated Diagnosis Comments PULMONARY FUNCTION TEST (PFT) Routine 07/16/2024 11:02 AM CDT ILD (interstitial lung disease) (HCC) IGG Routine 06/25/2024 12:40 PM CAR UNLOADER Hypogammaglobulin emia SCREENING MAMMOGRAM BILATERAL W DONY Schedule Routine, Read Routine (OP Routine) 06/01/2023 12:25 PM CAR UNLOADER Screening mammogram, encounter for DEXA AXIAL SKELETON BONE DENSITY 1 OR MORE SITES Schedule Routine, Read Routine (OP Routine) 01/13/2022 1:17 PM CDT Asymptomatic menopausal state COLONOSCOPY REPORT 05/23/2017 from Last 3 Months or Most Recently Relevant to Health Maintenance Results * Pulmonary Function Test - (07/16/2024 11:02 AM CDT) FVC PRE 1.28 L [facility] FVC %PRE PRED 55 % [facility] FEV1 PRE 1.19 L [facility] FEV1 %PRE PRED 66 % [facility] FEV1/FVC PRE 92.9 % [facility] Anatomical Region Laterality Modality PFT 07/16/2024 10:3 5 AM CDT Narrative 07/16/2024 4:41 PM CDT Table formatting from the original result was not included. [facility] Division of Pulmonary & Critical Care Medicine [address] [place] [address]; [place] [address]; [place] [address]; [phone] Pulmonary Function Laboratory Pulmonary Stress Test Simple/Oxygen [...] with the written final report. PFT performed at:->[facility] Adult PFT Lab- [facility] Procedure:->Spirometry Procedure:->Oxygen Assessment Titration [...] and %HbO2 is age dependent. However, the [facility] Pulmonary Function Laboratory defines hypoxemia as a PaO2 <56 mm Hg or a %HbO2 <89%. Starting on May of 2024 the [facility] Pulmonary Function Laboratory utilizes race neutral GLI Global normative equations. us Lesli Richard MD PFT ORDERABLES Final Result * IgG (06/25/2024 12:40 PM CAR UNLOADER) Immunoglobulin G 998 700 - 1,600 mg/dL Comment:Testing performed by : [facility], [facility] [facility], [place]., [address] Blood 06/25/2024 12:4 0 PM CAR UNLOADER 06/25/2024 6:29 PM CAR UNLOADER [facility] Micheal Fitch MD LAB BLOOD ORDERABLES Final Res ult [facility] [address] [facility]. Department [place] [address] * Screening Mammogram Bilateral W Dony (06/01/2023 12:25 PM CAR UNLOADER) Anatomical Region Laterality Modality Breast Bilateral Mammography Impressions 06/01/2023 1:40 PM CAR UNLOADER BI-RADS ATLAS category (overall): 2 - Benign There is no mammographic evidence of malignancy. A 1 year screening mammogram is recommended. The patient has been or will be contacted. We recommend annual screening mammography for women at average risk of breast cancer beginning at age 40, based on guidelines of the [place] [employer] (ACR Practice Parameter for the Performance of Screening and Diagnostic Mammography) and [place] [employer]. For women with and elevated risk of breast cancer, please refer to the ACR Practice Parameter for specific screening recommendations. The patient will be entered into a reminder system with a target due date of 1 year for her next screening exam. Narrative 06/01/2023 1:40 PM CAR UNLOADER Screening Mammogram Bilateral W Dony: 06/01/23 The [...] F with given history of screening. Postmenopausal Vocational Placement Specialist/Model: [employer]uristic A (S/N [id number]) CLINICAL INFORMATION: Current height: 61 inches Maximum [...] Sriram Casiano M.D. MF: VICTORINO Report ID: [id number] Reading Location: [place] [address] Procedure Note Sriram Casiano MD - 01/13/2022 EXAM DESCRIPTION: DEXA AXIAL SKELETON BONE DENSITY 1 OR MORE SITES REASON FOR STUDY: 77 y/o year old F with given history ofscreening. Postmenopausal Vocational Placement Specialist/Model: [employer] Horizon A (S/N [id number]) CLINICAL INFORMATION: Current height: 61 inches Maximum [...] Sriram Casiano M.D. MF: VICTORINO Report ID: [id number] Reading Location: [place] [address] Naila Marroquin MD IMG DXA PROCEDURES Final R esult * COLONOSCOPY REPORT (05/23/2017) Anatomical Region Laterality Modality Other Provider Scanning GI PROCEDURE ORDERABLES Final Result from Last 3 Months or Most Recently Relevant to Health Maintenance Insurance [facility] [employer] MEDICARE Member Subscriber Plan / Payer (Ef fective 2005-Present) Name:ANGELIA PERLA Navid Member ID:[id number] Relation to Subscriber:Self Name:Angelia Ca Navid Subscriber ID:[id number] Payer ID:[id number] Group ID:Not on file Type:MEDICARE TRADITIONAL Address: [place] [phone] [facility] MED[employer] [place] GU[place] Advance Directives For more information, please contact: [phone] * Full Code (Latest Code Status on File) Date Activated Date Inactivated Comments 01/24/2023 1:55 PM 01/27/2023 8:39 PM * Full Code Date Activated Date Inactivated Comments 11/21/2020 12:31 AM 11/23/2020 11:07 PM * Full Code Date Activated Date Inactivated Comments 07/06/2018 9:12 AM 07/06/2018 2:51 PM * Full Code Date Activated Date Inactivated Comments 06/05/2018 9:28 AM 06/05/2018 3:17 PM Care Teams Staff Technologist Relationship Specialty Start Date End Date Naila Marroquin MD [address] [facility] [address] [place] [address] PCP - General 07/21/17 Janine Bañuelos, analog design engineer Nurse 08/02/18 John Paul Springer MD Consulting Physician Orthopedic Surgery 12/05/19 Sindy Armstrong, ALEXANDRA Registered Nurse Pulmonary Disease 03/23/22
--- OUTSIDE RECORDS SUMMARY | 2024-08-06 08:37 | XMS_ITS | Encounter Summary ---
Author Organization [facility] Address [address] [address] Care Team Providers Care Etiquette Coach Name Role Phone Debora Fitch MD Primary Care Provider [phone] Miscellaneous, Not In File Primary Care Provider Unavailable Debora Fitch MD Primary Care Provider Naila Marroquin MD Primary Care Provider [phone] Debora Fitch MD Primary Care Provider Naila Marroquin MD Primary Care Provider Debora Fitch MD Primary Care Provider Naila Marroquin MD Primary Care Provider Debora Fitch MD Primary Care Provider [phone] Naila Marroquin MD Primary Care Provider + [phone] Debora Fitch MD Primary Care Provider [phone] Naila Marroquin MD Primary Care Provider Debora Fitch MD Primary Care Provider Naila Marroquin MD Primary Care Provider Debora Fitch MD Primary Care Provider [phone] Naila Marroquin MD Primary Care Provider [phone] Debora Fitch MD Primary Care Provider [phone] Naila Marroquin MD Primary Care Provider [phone] Janine Bañuelos RN Unavailable UnaJohn Paul Sawant MD Unavailable [phone] Sindy Armstrong RN Unavailable Darelne vailable Encounter Details Date Type Department Care Team (Late st Contact Info) Description 05/19/2016 Orders Only [facility] Provider, MD Sherif [address] [place] [address] Social History Tobacco Use Types Packs/Day Years Used Date Smoking Tobacco: Former Cigarettes Q uit: 05/01/1974 Alcohol Use Standard Drinks/Week Comments Yes 0 (1 standard drink = 0.6 oz pur e alcohol) Comments Unknown Sex and Gender Information Value Date Recorded Sex Assigned at Not on file Legal Sex Female 8:29 PM PIPE CHANGER Gender Identity Female 09/24/2021 1:08 PM CDT Sexual Orientation Not on file documented as of this encounter Plan of Treatment Not on file documented as of this encounter Procedures Procedure Name Priority Date/Time Associated Diagnosis Comments CARDIOLOGY REPORT 05/19/2016 documented in this encounter Results * CARDIOLOGY REPORT (05/19/2016) Anatomical Region Laterality Modality Other Narrative 05/19/2016 Ordered by an unspecified provider. Historical Provider [facility] JAMES LADD Final Result documented in this encounter Visit Diagnoses Not on filedocumented in this encounter Additional Health Concerns Infection Onset Date Last Indicated Resolved Time COVID: Suspected 05/28/2021 05/28/2021 05/28/2021 3:42 PM PIPE CHANGER COVID: Suspected 01/24/2023 01/24/2023 01/24/2023 1:28 AM CDT COVID: Suspected 01/24/2023 01/25/2023 01/25/2023 11:46 AM CDT COVID19 Comment:COVID + on home test. Symptoms started 3 days ago. 05/06/2023 05/06/2023 05/16/2023 3:05 AM PIPE CHANGER COVID: Recovered Comment:Added based on recent COVID infection. 05/16/2023 05/23/2023 08/14/2023 3:05 AM C DT documented as of this encounter Care Teams Etiquette Coach Relationship Specialty Start Date End Date Debora Fitch MD [address] [address] PCP - General 08/19/16 11/03/16 Miscellaneous, Not In File PCP - General 11/04/16 11/07/16 Debora Fitch MD [address] [address] PCP - General 11/08/16 11/17/16 Naila Marroquin MD [address] [place] [address] PCP - General 11/18/16 11/21/16 Debora Fitch MD [address] [address] PCP - General 11/22/16 11/22/16 Naila Marroquin MD [address] [place] [address] PCP - General 11/23/16 11/26/16 Debora Fitch MD [address] [address] PCP - General 11/27/16 01/03/17 Naila Marroquin MD [address] [place] [address] PCP - General 01/04/17 01/26/17 Debora Fitch MD [address] [facility] [place] [address] PCP - General 01/27/17 02/06/17 Naila Marroquin MD [address] [place] [address] PCP - General 02/07/17 02/13/17 Debora Fitch MD [address] [address] [facility] [address] [address] PCP - General 02/14/17 04/04/17 Naila Marroquin MD [address] [place] [address] PCP - General 04/05/17 04/05/17 Debora Fitch MD [address] [facility] [address] [address] PCP - General 04/06/17 05/18/17 Naila Marroquin MD [address] [place] [address] PCP - General 05/19/17 06/11/17 Debora Fitch MD [address] [address] PCP - General 06/12/17 06/14/17 Naila Marroquin MD [address] [place] [address] PCP - General 06/15/17 07/12/17 Debora Fitch MD [address] [facility] [address] [place] [address] PCP - General 07/13/17 07/20/17 Naila Marroquin MD [address] [place] [address] PCP - General 07/21/17 Janine Bañuelos, playground worker Nurse 08/02/18 John Paul Springer MD Consulting Physician Orthopedic Surgery 12/05/19 Sindy Armstrong, ALEXANDRA Registered Nurse Pulmonary Disease 03/23/22 documented as of this encounter
--- OUTSIDE RECORDS SUMMARY | 2024-08-06 08:37 | XMS_ITS | Encounter Summary ---
Author Organization [facility] Address [address] [place] [address] Phone Care Team Providers Care Chargemaster Analyst Name Role Phone Debora Fitch MD Primary Care Provider [phone] Naila Marroquin MD Primary Care Provider [phone] Debora Fitch MD Primary Care Provider [phone] Naila Marroquin MD Primary Care Provider [phone] Debora Fitch MD Primary Care Provider [phone] Naila Marroquin MD Primary Care Provider [phone] Debora Fitch MD Primary Care Provider [phone] Naila Marroquin MD Primary Care Provider [phone] Debora Fitch MD Primary Care Provider [phone] Naila Marroquin MD Primary Care Provider [phone] Janine Bañuelos RN Unavailable John Paul Lucas MD Unavailable [phone] Sindy Armstrong RN Unavailable Darlene vailable Encounter Details Date Type Department Care Team (Latest Contact Info) Description 01/30/2017 Orders Only [facility] CONVERSION Scanning, Provider Social History Tobacco Use Types Packs/Day Years Used Date Smoking Tobacco: Former Cigarettes Q uit: 05/01/1974 Alcohol Use Standard Drinks/Week Comments Yes 0 (1 standard drink = 0.6 oz pur e alcohol) Comments Unknown Sex and Gender Information Value Date Recorded Sex Assigned at Not on file Legal Sex Female 8:29 PM HUMAN RESOURCES BENEFITS ASSISTANT Gender Identity Female 09/24/2021 1:08 PM CDT Sexual Orientation Not on file documented as of this encounter Plan of Treatment Not on file documented as of this encounter Procedures Procedure Name Priority Date/Time Associated Diagnosis Comments PULMONARY FUNCTION TEST (PFT) 01/30/2017 9:41 AM CDT documented in this encounter Results * PULMONARY FUNCTION TEST (PFT) (01/30/2017 9:41 AM CDT) Anatomical Region Laterality Modality PFT us Provider Scanning PFT ORDERABLES Final Result documented in this encounter Visit Diagnoses Not on filedocumented in this encounter Additional Health Concerns Infection Onset Date Last Indicated Resolved Time COVID: Suspected 05/28/2021 05/28/2021 05/28/2021 3:42 PM HUMAN RESOURCES BENEFITS ASSISTANT COVID: Suspected 01/24/2023 01/24/2023 01/24/2023 1:28 AM CDT COVID: Suspected 01/24/2023 01/25/2023 01/25/2023 11:46 AM CDT COVID19 Comment:COVID + on home test. Symptoms started 3 days ago. 05/06/2023 05/06/2023 05/16/2023 3:05 AM HUMAN RESOURCES BENEFITS ASSISTANT COVID: Recovered Comment:Added based on recent COVID infection. 05/16/2023 05/23/2023 08/14/2023 3:05 AM C DT documented as of this encounter Care Teams Chargemaster Analyst Relationship Specialty Start Date End Date Debora Fitch MD [address] [facility] [address] [place] [address] PCP - General 01/27/17 02/06/17 Naila Marroquin MD [address] [place] [address] PCP - General 02/07/17 02/13/17 Debora Fitch MD [address] [address] PCP - General 02/14/17 04/04/17 Naila Marroquin MD [address] [place] [address] PCP - General 04/05/17 04/05/17 Debora Fitch MD [address] [facility] [address] [address] PCP - General 04/06/17 05/18/17 Naila Marroquin MD [address] [place] [address] PCP - General 05/19/17 06/11/17 Debora Fitch MD [address] [facility] [address] [address] PCP - General 06/12/17 06/14/17 Naila Marroquin MD [address] [place] [address] PCP - General 06/15/17 07/12/17 Debora Fitch MD [address] [address] PCP - General 07/13/17 07/20/17 Naila Marroquin MD [address] [facility] [address] [place] [address] PCP - General 07/21/17 Janine Bañuelos, alley tender Nurse 08/02/18 John Paul Springer MD Consulting Physician Orthopedic Surgery 12/05/19 Sindy Armstrong, RN Registered Nurse Pulmonary Disease 03/23/22 documented as of this encounter
--- OUTSIDE RECORDS SUMMARY | 2024-08-06 08:37 | XMS_ITS | Encounter Summary ---
Author Organization [facility] Address [address] [place] [address] Phone Care Team Providers Care Flying Squad Salesperson Name Role Phone Naila Marroquin MD Primary Care Provider [phone] Janine Bañuelos RN Unavailable Unavai John Paul David MD Unavailable [phone] Sindy Armstrong RN Unavailable Darlene vailable Encounter Details Date Type Department Care Team (Latest Contact Info) Description 07/24/2017 Orders Only [facility] CONVERSION Scanning, Provider Social History Tobacco Use Types Packs/Day Years Used Date Smoking Tobacco: Former Cigarettes Q uit: 05/01/1974 Alcohol Use Standard Drinks/Week Comments Yes 0 (1 standard drink = 0.6 oz pur e alcohol) Comments Unknown Sex and Gender Information Value Date Recorded Sex Assigned at Not on file Legal Sex Female 8:29 PM MORTGAGE PROTECTION SPECIALIST Gender Identity Female 09/24/2021 1:08 PM CDT Sexual Orientation Not on file documented as of this encounter Plan of Treatment Not on file documented as of this encounter Procedures Procedure Name Priority Date/Time Associated Diagnosis Comments PULMONARY FUNCTION TEST (PFT) 07/24/2017 6:06 PM CDT documented in this encounter Results * PULMONARY FUNCTION TEST (PFT) (07/24/2017 6:06 PM CDT) Anatomical Region Laterality Modality PFT us Provider Scanning PFT ORDERABLES Final Result documented in this encounter Visit Diagnoses Not on filedocumented in this encounter Additional Health Concerns Infection Onset Date Last Indicated Resolved Time COVID: Suspected 05/28/2021 05/28/2021 05/28/2021 3:42 PM MORTGAGE PROTECTION SPECIALIST COVID: Suspected 01/24/2023 01/24/2023 01/24/2023 1:28 AM CDT COVID: Suspected 01/24/2023 01/25/2023 01/25/2023 11:46 AM CDT COVID19 Comment:COVID + on home test. Symptoms started 3 days ago. 05/06/2023 05/06/2023 05/16/2023 3:05 AM MORTGAGE PROTECTION SPECIALIST COVID: Recovered Comment:Added based on recent COVID infection. 05/16/2023 05/23/2023 08/14/2023 3:05 AM C DT documented as of this encounter Care Teams Flying Squad Salesperson Relationship Specialty Start Date End Date Naila Marroquin MD [address] [facility] [address] [place] [address] PCP - General 07/21/17 Janine Bañuelos, halal meat packer Nurse 08/02/18 John Paul Springer MD Consulting Physician Orthopedic Surgery 12/05/19 Sindy Armstrong, RN Registered Nurse Pulmonary Disease 03/23/22 documented as of this encounter
--- OUTSIDE RECORDS SUMMARY | 2024-08-06 08:37 | XMS_ITS | Clinical Summary ---
Author Organization [facility] Address [address] [place] [id number] Care Team Providers Care Nuclear Equipment Sales Engineer Name Role Phone Unavailable Primary Care Provider Unavailabl e Social History Tobacco Use Types Packs/Day Years Used Date Smoking Tobacco: Never Assessed Comments Unknown Sex and Gender Information Value Date Recorded Sex Assigned at Not on file Legal Sex Female 10:16 PM INTEGRATED CIRCUIT DESIGN ENGINEER Gender Identity Not on file Sexual Orientation Not on file Plan of Treatment Health Maintenance Due Date Last Done Comments DEXA Bone Density 1945 Hepatitis C Virus (HCV) Screening 1945 TdaP Immunization 1945 Pneumococcal Immunization (5 0+ years) (1 of 1 - PCV) 1997 Zoster Immunization (1 of 2) 1997 Respiratory Syncytial Virus (RSV) Immunization (Adult) (1 - 1-dose 75+ series) 2022 Influenza Immunization (#1) 2023 02/10/2021 SARS-COV-2 Immunization (2 - season) 2023 07/06/2020 Hepatitis B Immunization Aged Out No longer eligible based on patient's age to complete this topic Meningococcal Immunization (ACWY) Aged Out No longer eligible based on patient's age to complete this topic Rotavirus Immunization Aged Out No lo nger eligible based on patient's age to complete this topic
--- OUTSIDE RECORDS SUMMARY | 2024-08-06 08:37 | XMS_ITS | Patient Health Record ---
Author Organization [facility] [employer] Address [address] [facility] [address] [place] [address] Care Team Providers Care Weatherization Field Technician Name Role Phone Cara ERAZO, Naila Primary Care Provider Toy Cordon Unavailable [phone] Allergies Allergen (clinical drug ingredient) Drug/Non Drug Allergy documented on EMR Reaction Allergy Type Onset Date Status nitrofurantoin Macrodantin Unknown Drug Allergy Active codeine Codeine Unknown Drug Allergy Active Results Component Value Reference Range Notes EXTRA SPECIMEN ([id number]) Reviewed date:04/30/2024 09:36:35 AM Interpretation: Performing Lab:[facility], [id number] [facility], [id number] Noni Madden MD Notes/Report: FASTING: UNKNOWN EXTRA TUBE RECEIVED An extra specimen was received with no test requested. The specimen will be maintained in storage in case additional testing is needed. Please call the client service department for further assistance. SPECIMEN TYPE RECEIVED Clinical Drug Test Your request to have a duplicate copy faxed has been acknowledged. Queued to: [id number] UDT Reviewed date:04/10/2024 02:37:43 PM Interpretation: Performing Lab: Notes/Report: THC N 0 - 50 ng/ml Cocaine N 0 - 300 ng/ml Amphetamine N 0 - 1000 ng/ml Buprenorphine (BUP) N 0 - 10 ng/ml Secobarbital (Bar) N 0 - 300 ng/ml Oxazepam (BZO) POS 0 - 300 ng/ml 1-jgklpkmcij-6,5-aoluahzr-8, 3-diphen ylpyrrolidine (EDDP) N 0 - 300 ng/ml Methamphetamine (MET) N 0 - 1000 ng/ml Methylenedioxymethamphetamine (MDMA) N 0 - 500 ng/ml Morphine (MOP 300/[id number]) N 0 - 300 ng/ml Methadone (MTD) N 0 - 300 ng/ml Phencyclidine (PCP) N 0 - 25 ng/ml Nortriptyline (TCA) N 0 - 1000 ng/ml Oxycodone N 0 - 300 ng/ml x N 0 - 300 ng/ml Reason For Referral No Information Medications Medication SIG (Take, Route, Frequency, Duration) Notes Start Date End Date Status Isosorbide Mononitrate ER 60 MG Oral for 30 Days Active Ezetimibe 10 MG Oral for 30 Days Active Rosuvastatin Calcium 40 MG Oral for 30 Days Active Pregabalin 50 MG Oral for 30 Days Active Pantoprazole Sodium 40 MG TAKE 1 TABLET BY MOUTH EVERY DAY IN THE MORNING Oral for 90 Days Active Levothyroxine Sodium 88 MCG Oral for 20 Days Active Famotidine 40 MG TAKE 1 TABLET BY GEN TH EVERY DAY AT BEDTIME Oral for 90 Days Active ALPRAZolam 1 MG Oral for 30 Days Active QUEtiapine Fumarate 25 MG 1 tablet at be dtime Orally Once a day for 30 days 04/09/2024 Active Mirtazapine 15 MG 1 tablet at bedtime Orally Once a day for 30 days Active Montelukast Sodium 10 MG TAKE 1 TABLET B Y MOUTH EVERY DAY Oral for 90 Days Active Cetirizine HCl 10 MG Oral for 30 Days Active OLANZapine 2.5 MG 1 tablet at bedtime Orally Once a day for 30 days 07/10/2024 Active Zolpidem Tartrate 10 MG Oral for 20 Days Active Mirtazapine 7.5 MG 1 tablet at bedtime Orally Once a day for 14 days 05/16/2024 Active Social History Tobacco Use: Social History Observation Description Date Details (start date - stop date) Former Smoker NA - NA Sex Assigned At : Social History Observation Description Sex Assigned At Female Tobacco Control (Standard) Question Answer Notes Tobacco use: Former smoker How long has it been since you last smoked? Marya ter than 10 years AUDIT-C (Standard) Question Answer Notes Did you have a drink contain ing alcohol in the past year? Yes How often did you have six o r more drinks on one occasion in the past year? Declined to specify (0 point) How many drinks did you have on a typical day when you were drinking in the past year? Declined to specify (0 point) How often did you have a dri nk containing alcohol in the past year? Declined to specify (0 point) Problems Problem Type SNOMED Code ICD Code Onset Dates Problem Status W/U Status Risk Notes Problem 57567878 Insomnia due to other mental disorder (F51.05) Active confirmed Problem 49022479 Mental disorder, not otherwise specified (F99) Active confirmed Problem 84344126 Depression, major, recurrent, moderate (F33.1) Active confirmed Problem [id number] ENRICO (generalized anxiety disorder) (F41.1) Active confirmed Vital Signs Heart Rate 70 /min 07/10/2024 Height-cm 157.48 cm 07/10/2024 Blood pressure diastolic 65 mm Hg 07/10/2024 Weight-kg 52.16 kg 07/10/2024 Height 62 in 07/10/2024 Blood pressure systolic 104 mm Hg 07/10/2024 Weight 115 lbs 07/10/2024 BMI 21.03 kg/m2 07/10/2024 Encounters Encounter Location Date Provider Diagnosis [facility] [employer] [address] [address] 04/09/2024 Toy Knight ENRICO (generalized anxiety disorder) F41.1 ; Depression, major, recurrent, moderate F33.1 ; Insomnia due to other mental disorder F51.05 and High risk medication use Z79.899 [facility] [employer] [address] [address] 05/16/2024 Toy Knight ENRICO (generalized anxiety disorder) F41.1 ; Depression, major, recurrent, moderate F33.1 ; Insomnia due to other mental disorder F51.05 and High risk medication use Z79.899 [facility] [employer] [address] [address] 07/10/2024 Toy Knight Encounter for screen ing for depression Z13.31 ; Encounter for screening for cardiovascular disorders Z13.6 ; ENRICO (generalized anxiety disorder) F41.1 ; Depression, major, recurrent, moderate F33.1 ; Insomnia due to other mental disorder F51.05 and High risk medication use Z79.899 [facility] [employer] [place] [address] [facility] [address] [address] 04/09/2024 Toy Knight [facility] [employer] [place] [address] [facility] [address] [address] 04/10/2024 Toy Knight [facility] [place] [address] [facility] [address] [place] [address] 07/11/2024 Toy Knight Assessments Encounter Date Diagnosis (ICD Code) Assessment Notes Treatment Notes Treatment Clinical Notes Section Notes 04/09/2024 Depression, major, recurrent, moderate (ICD-10 - F33.1) stop sertraline. Start quetiapine 25mg at bedtime. on alprazolam 1mg QID- high risk medication 1. Anxiety and Depression: - Patient reports a long history of anxiety and depression, with a recent exacerbation due to the transition to assisted living. - Currently on Zoloft 25 mg and Xanax 4 mg daily. Plan: - Discontinue Zoloft due to the patient's uncertainty of its effectiveness. - Initiate quetiapine 25 mg at bedtime to help with anxiety, sleep, and appetite. - Monitor patient's response to quetiapine and titrate the dose as needed. - Plan on reducing Xanax in the future, as the patient is on a high-risk medication, and work on controlling anxiety through other means. Benzodiazepine use is recommended short term therapy not exterminator helper termite. High risk for abuse, tolerance and addiction. 2. Insomnia: - Patient reports poor sleep quality and difficulty falling asleep. - Currently on Ambien . Plan: - Continue Ambien as prescribed. - Monitor the effect of quetiapine on sleep quality and adjust the dose as needed. 3. Poor appetite and weight loss: - Patient reports a lack of appetite and significant weight loss. Plan: - Monitor the effect of quetiapine on appetite and weight. - Encourage the patient to eat regular meals and consider nutritional supplements if needed. 4. Counseling: - Patient is not currently interested in counseling. Plan: - Revisit the option of counseling in future visits if the patient's mental health does not improve with medication adjustments. 04/09/2024 ENRICO (generalized anxiety disorder) (ICD-10 - F41.1) on alprazolam 1mg qid by pcp on alprazolam 1mg QID- high risk medication 1. Anxiety and Depression: - Patient reports a long history of anxiety and depression, with a recent exacerbation due to the transition to assisted living. - Currently on Zoloft 25 mg and Xanax 4 mg daily. Plan: - Discontinue Zoloft due to the patient's uncertainty of its effectiveness. - Initiate quetiapine 25 mg at bedtime to help with anxiety, sleep, and appetite. - Monitor patient's response to quetiapine and titrate the dose as needed. - Plan on reducing Xanax in the future, as the patient is on a high-risk medication, and work on controlling anxiety through other means. Benzodiazepine use is recommended short term therapy not assisted. High risk for abuse, tolerance and addiction. 2. Insomnia: - Patient reports poor sleep quality and difficulty falling asleep. - Currently on Ambien . Plan: - Continue Ambien as prescribed. - Monitor the effect of quetiapine on sleep quality and adjust the dose as needed. 3. Poor appetite and weight loss: - Patient reports a lack of appetite and significant weight loss. Plan: - Monitor the effect of quetiapine on appetite and weight. - Encourage the patient to eat regular meals and consider nutritional supplements if needed. 4. Counseling: - Patient is not currently interested in counseling. Plan: - Revisit the option of counseling in future visits if the patient's mental health does not improve with medication adjustments. 05/16/2024 ENRICO (generalized anxiety disorder) (ICD-10 - F41.1) on alprazolam 1mg qid by pcp on alprazolam 1mg QID- high risk medication 1. Anxiety and Depression: - Patient reports ongoing anxiety and depression, with a history of panic attacks. - Has tried multiple medications in the past, including Zoloft, trazodone, Ativan, Ambien, Xanax, and Cymbalta. - Currently on Ambien and Xanax for sleep. Plan: - Discontinue quetiapine due to adverse effects (hives and constipation). - Initiate mirtazapine 7.5 mg at bedtime for 14 days, then increase to 15 mg at bedtime. - Monitor for improvement in anxiety, depression, sleep, and appetite. - Follow up in one month. 2. Insomnia: - Patient reports difficulty sleeping, currently taking Ambien and Xanax at bedtime. Plan: - Continue Ambien and Xanax as needed for sleep. - Monitor the effect of mirtazapine on sleep quality. - Reassess sleep issues at the next follow-up appointment. 3. Hives and Constipation: - Patient reports hives and constipation as side effects of quetiapine. Plan: - Discontinue quetiapine. - Monitor for resolution of hives and constipation after discontinuation . 4. Weight loss and poor appetite: - Patient reports weight loss and poor appetite, possibly related to anxiety and depression. Plan: - Monitor weight and appetite after initiating mirtazapine, as it may help improve appetite. - Encourage patient to continue attending meals at her living facility and engage in social activities. - Reassess weight and appetite at the next follow-up appointment. 5. Adjustment to new living situation: - Patient reports difficulty adjusting to her new living situation, contributing to anxiety and depression. Plan: - Encourage patient to continue engaging in social activities and attending meetings at her living facility. - Consider referral to a therapist or counselor for additional support in adjusting to her new environment. - Reevaluate adjustment progress at the next follow-up appointment. 07/10/2024 Encounter for screening for depression (ICD-10 - Z13.31) on alprazolam 1mg QID- high risk medication 07/10/2024 Encounter for screening for cardiovascular disorders (ICD-10 - Z13.6) on alprazolam 1mg QID- high risk medication 04/09/2024 Insomnia due to other mental disorder (ICD-10 - F51.05) on zolpidem 5mg by pcp. Patient report she stopped Trazodone because it does not work. on alprazolam 1mg QID- high risk medication 1. Anxiety and Depression: - Patient reports a long history of anxiety and depression, with a recent exacerbation due to the transition to assisted living. - Currently on Zoloft 25 mg and Xanax 4 mg daily. Plan: - Discontinue Zoloft due to the patient's uncertainty of its effectiveness. - Initiate quetiapine 25 mg at bedtime to help with anxiety, sleep, and appetite. - Monitor patient's response to quetiapine and titrate the dose as needed. - Plan on reducing Xanax in the future, as the patient is on a high-risk medication, and work on controlling anxiety through other means. Benzodiazepine use is recommended short term therapy not assisted. High risk for abuse, tolerance and addiction. 2. Insomnia: - Patient reports poor sleep quality and difficulty falling asleep. - Currently on Ambien . Plan: - Continue Ambien as prescribed. - Monitor the effect of quetiapine on sleep quality and adjust the dose as needed. 3. Poor appetite and weight loss: - Patient reports a lack of appetite and significant weight loss. Plan: - Monitor the effect of quetiapine on appetite and weight. - Encourage the patient to eat regular meals and consider nutritional supplements if needed. 4. Counseling: - Patient is not currently interested in counseling. Plan: - Revisit the option of counseling in future visits if the patient's mental health does not improve with medication adjustments. 05/16/2024 Depression, major, recurrent, moderate (ICD-10 - F33.1) on alprazolam 1mg QID- high risk medication 1. Anxiety and Depression: - Patient reports ongoing anxiety and depression, with a history of panic attacks. - Has tried multiple medications in the past, including Zoloft, trazodone, Ativan, Ambien, Xanax, and Cymbalta. - Currently on Ambien and Xanax for sleep. Plan: - Discontinue quetiapine due to adverse effects (hives and constipation). - Initiate mirtazapine 7.5 mg at bedtime for 14 days, then increase to 15 mg at bedtime. - Monitor for improvement in anxiety, depression, sleep, and appetite. - Follow up in one month. 2. Insomnia: - Patient reports difficulty sleeping, currently taking Ambien and Xanax at bedtime. Plan: - Continue Ambien and Xanax as needed for sleep. - Monitor the effect of mirtazapine on sleep quality. - Reassess sleep issues at the next follow-up appointment. 3. Hives and Constipation: - Patient reports hives and constipation as side effects of quetiapine. Plan: - Discontinue quetiapine. - Monitor for resolution of hives and constipation after discontinuation . 4. Weight loss and poor appetite: - Patient reports weight loss and poor appetite, possibly related to anxiety and depression. Plan: - Monitor weight and appetite after initiating mirtazapine, as it may help improve appetite. - Encourage patient to continue attending meals at her living facility and engage in social activities. - Reassess weight and appetite at the next follow-up appointment. 5. Adjustment to new living situation: - Patient reports difficulty adjusting to her new living situation, contributing to anxiety and depression. Plan: - Encourage patient to continue engaging in social activities and attending meetings at her living facility. - Consider referral to a therapist or counselor for additional support in adjusting to her new environment. - Reevaluate adjustment progress at the next follow-up appointment. 04/09/2024 High risk medication use (ICD-10 - Z79.899) exterminator helper termite use benzodiazepine is not recommended, greater risk of use in elderly population. Plan to taper off of benzodiazepine in the future. on alprazolam 1mg QID- high risk medication 1. Anxiety and Depression: - Patient reports a long history of anxiety and depression, with a recent exacerbation due to the transition to assisted living. - Currently on Zoloft 25 mg and Xanax 4 mg daily. Plan: - Discontinue Zoloft due to the patient's uncertainty of its effectiveness. - Initiate quetiapine 25 mg at bedtime to help with anxiety, sleep, and appetite. - Monitor patient's response to quetiapine and titrate the dose as needed. - Plan on reducing Xanax in the future, as the patient is on a high-risk medication, and work on controlling anxiety through other means. Benzodiazepine use is recommended short term therapy not exterminator helper termite. High risk for abuse, tolerance and addiction. 2. Insomnia: - Patient reports poor sleep quality and difficulty falling asleep. - Currently on Ambien . Plan: - Continue Ambien as prescribed. - Monitor the effect of quetiapine on sleep quality and adjust the dose as needed. 3. Poor appetite and weight loss: - Patient reports a lack of appetite and significant weight loss. Plan: - Monitor the effect of quetiapine on appetite and weight. - Encourage the patient to eat regular meals and consider nutritional supplements if needed. 4. Counseling: - Patient is not currently interested in counseling. Plan: - Revisit the option of counseling in future visits if the patient's mental health does not improve with medication adjustments. 05/16/2024 Insomnia due to other mental disorder (ICD-10 - F51.05) on zolpidem 5mg by pcp. Patient report she stopped Trazodone because it does not work. on alprazolam 1mg QID- high risk medication 1. Anxiety and Depression: - Patient reports ongoing anxiety and depression, with a history of panic attacks. - Has tried multiple medications in the past, including Zoloft, trazodone, Ativan, Ambien, Xanax, and Cymbalta. - Currently on Ambien and Xanax for sleep. Plan: - Discontinue quetiapine due to adverse effects (hives and constipation). - Initiate mirtazapine 7.5 mg at bedtime for 14 days, then increase to 15 mg at bedtime. - Monitor for improvement in anxiety, depression, sleep, and appetite. - Follow up in one month. 2. Insomnia: - Patient reports difficulty sleeping, currently taking Ambien and Xanax at bedtime. Plan: - Continue Ambien and Xanax as needed for sleep. - Monitor the effect of mirtazapine on sleep quality. - Reassess sleep issues at the next follow-up appointment. 3. Hives and Constipation: - Patient reports hives and constipation as side effects of quetiapine. Plan: - Discontinue quetiapine. - Monitor for resolution of hives and constipation after discontinuation . 4. Weight loss and poor appetite: - Patient reports weight loss and poor appetite, possibly related to anxiety and depression. Plan: - Monitor weight and appetite after initiating mirtazapine, as it may help improve appetite. - Encourage patient to continue attending meals at her living facility and engage in social activities. - Reassess weight and appetite at the next follow-up appointment. 5. Adjustment to new living situation: - Patient reports difficulty adjusting to her new living situation, contributing to anxiety and depression. Plan: - Encourage patient to continue engaging in social activities and attending meetings at her living facility. - Consider referral to a therapist or counselor for additional support in adjusting to her new environment. - Reevaluate adjustment progress at the next follow-up appointment. 07/10/2024 ENRICO (generalized anxiety disorder) (ICD-10 - F41.1) on alprazolam 1mg qid by pcp on alprazolam 1mg QID- high risk medication 07/10/2024 Depression, major, recurrent, moderate (ICD-10 - F33.1) on alprazolam 1mg QID- high risk medication 05/16/2024 High risk medication use (ICD-10 - Z79.899) assisted use benzodiazepine is not recommended, greater risk of use in elderly population. Plan to taper off of benzodiazepine in the future. on alprazolam 1mg QID- high risk medication 1. Anxiety and Depression: - Patient reports ongoing anxiety and depression, with a history of panic attacks. - Has tried multiple medications in the past, including Zoloft, trazodone, Ativan, Ambien, Xanax, and Cymbalta. - Currently on Ambien and Xanax for sleep. Plan: - Discontinue quetiapine due to adverse effects (hives and constipation). - Initiate mirtazapine 7.5 mg at bedtime for 14 days, then increase to 15 mg at bedtime. - Monitor for improvement in anxiety, depression, sleep, and appetite. - Follow up in one month. 2. Insomnia: - Patient reports difficulty sleeping, currently taking Ambien and Xanax at bedtime. Plan: - Continue Ambien and Xanax as needed for sleep. - Monitor the effect of mirtazapine on sleep quality. - Reassess sleep issues at the next follow-up appointment. 3. Hives and Constipation: - Patient reports hives and constipation as side effects of quetiapine. Plan: - Discontinue quetiapine. - Monitor for resolution of hives and constipation after discontinuation . 4. Weight loss and poor appetite: - Patient reports weight loss and poor appetite, possibly related to anxiety and depression. Plan: - Monitor weight and appetite after initiating mirtazapine, as it may help improve appetite. - Encourage patient to continue attending meals at her living facility and engage in social activities. - Reassess weight and appetite at the next follow-up appointment. 5. Adjustment to new living situation: - Patient reports difficulty adjusting to her new living situation, contributing to anxiety and depression. Plan: - Encourage patient to continue engaging in social activities and attending meetings at her living facility. - Consider referral to a therapist or counselor for additional support in adjusting to her new environment. - Reevaluate adjustment progress at the next follow-up appointment. 07/10/2024 Insomnia due to other mental disorder (ICD-10 - F51.05) on zolpidem 5mg by pcp. on alprazolam 1mg QID- high risk medication 07/10/2024 High risk medication use (ICD-10 - Z79.899) assisted use benzodiazepine is not recommended, greater risk of use in elderly population. Plan to taper off of benzodiazepine in the future. on alprazolam 1mg QID- high risk medication 04/09/2024 Other Learning About Depression Screening material was printed Learning About Depression Screening material was printed on alprazolam 1mg QID- high risk medication 1. Anxiety and Depression: - Patient reports a long history of anxiety and depression, with a recent exacerbation due to the transition to assisted living. - Currently on Zoloft 25 mg and Xanax 4 mg daily. Plan: - Discontinue Zoloft due to the patient's uncertainty of its effectiveness. - Initiate quetiapine 25 mg at bedtime to help with anxiety, sleep, and appetite. - Monitor patient's response to quetiapine and titrate the dose as needed. - Plan on reducing Xanax in the future, as the patient is on a high-risk medication, and work on controlling anxiety through other means. Benzodiazepine use is recommended short term therapy not exterminator helper termite. High risk for abuse, tolerance and addiction. 2. Insomnia: - Patient reports poor sleep quality and difficulty falling asleep. - Currently on Ambien . Plan: - Continue Ambien as prescribed. - Monitor the effect of quetiapine on sleep quality and adjust the dose as needed. 3. Poor appetite and weight loss: - Patient reports a lack of appetite and significant weight loss. Plan: - Monitor the effect of quetiapine on appetite and weight. - Encourage the patient to eat regular meals and consider nutritional supplements if needed. 4. Counseling: - Patient is not currently interested in counseling. Plan: - Revisit the option of counseling in future visits if the patient's mental health does not improve with medication adjustments. 05/16/2024 Other stop quetiapine . Start Mirtazapine 7.5mg at bedtime x 14 days then Mirtazapine 15mg at bedtime. on alprazolam 1mg QID- high risk medication 1. Anxiety and Depression: - Patient reports ongoing anxiety and depression, with a history of panic attacks. - Has tried multiple medications in the past, including Zoloft, trazodone, Ativan, Ambien, Xanax, and Cymbalta. - Currently on Ambien and Xanax for sleep. Plan: - Discontinue quetiapine due to adverse effects (hives and constipation). - Initiate mirtazapine 7.5 mg at bedtime for 14 days, then increase to 15 mg at bedtime. - Monitor for improvement in anxiety, depression, sleep, and appetite. - Follow up in one month. 2. Insomnia: - Patient reports difficulty sleeping, currently taking Ambien and Xanax at bedtime. Plan: - Continue Ambien and Xanax as needed for sleep. - Monitor the effect of mirtazapine on sleep quality. - Reassess sleep issues at the next follow-up appointment. 3. Hives and Constipation: - Patient reports hives and constipation as side effects of quetiapine. Plan: - Discontinue quetiapine. - Monitor for resolution of hives and constipation after discontinuation . 4. Weight loss and poor appetite: - Patient reports weight loss and poor appetite, possibly related to anxiety and depression. Plan: - Monitor weight and appetite after initiating mirtazapine, as it may help improve appetite. - Encourage patient to continue attending meals at her living facility and engage in social activities. - Reassess weight and appetite at the next follow-up appointment. 5. Adjustment to new living situation: - Patient reports difficulty adjusting to her new living situation, contributing to anxiety and depression. Plan: - Encourage patient to continue engaging in social activities and attending meetings at her living facility. - Consider referral to a therapist or counselor for additional support in adjusting to her new environment. - Reevaluate adjustment progress at the next follow-up appointment. 07/10/2024 Other 1. Generalized Anxiety Disorder: - Patient reports persistent and worsening anxiety symptoms, including shakiness noticeable to others. - Experiences significant distress and functional impairment due to anxiety, which appears to run in her family. - Current treatment with Xanax 4 times daily provides some relief but does not fully control symptoms. - Anxiety is exacerbated by living situation in an assisted living facility and concerns about appearance due to hair loss. Plan: - Continue Xanax as prescribed, 4 times daily - Add olanzapine 2.5 mg PO at bedtime for anxiety and depression management - Discussed potential side effects of olanzapine, including sedation and increased appetite - Patient informed of the need for medication build-up for optimal effect - Continue to encourage participation in facility activities as tolerated 2. Insomnia: - Patient reports ongoing sleep disturbances, including difficulty falling asleep and maintaining sleep throughout the night. - Current treatment with Ambien and mirtazapine has provided some improvement, allowing patient to sleep for part of the night, but sleep maintenance remains an issue. Plan: - Continue Ambien as prescribed for sleep initiation - Continue mirtazapine as prescribed for sleep and appetite - Addition of olanzapine 2.5 mg PO at bedtime may further improve sleep quality 3. Depression: - Patient exhibits symptoms of depression, including low mood and anhedonia. - Depression appears to be comorbid with anxiety and may be exacerbated by the patient's living situation and concerns about her appearance. Plan: - Continue mirtazapine as prescribed for depression management - Addition of olanzapine 2.5 mg PO at bedtime may provide further antidepressant effects - Encourage continued participation in social activities at the facility as tolerated 4. Weight Loss / Poor Appetite: - Patient reports significant weight loss and poor appetite, currently weighing 140 lbs and desiring to reach at least 120 lbs. - Appetite issues may be related to depression and anxiety symptoms. Plan: - Continue mirtazapine as prescribed for appetite stimulation - Addition of olanzapine 2.5 mg PO at bedtime may further improve appetite - Encourage regular meals and nutritious snacks on alprazolam 1mg QID- high risk medication Plan Of Treatment Next Appt Details Provider Name:Toy Ailyn tony, 08/13/2024 11:15:00 AM, [facility], [facility] [address], [place], [address], Insurance Providers Payer Name Payer Address Payer Phone Subscriber Number Group Number Insured Name Patient Relationship to Insured Coverage Start Date Coverage End Date Medicare-I l Medicare [address] [place] [phone] [id number] Angelia Salcedo Self - patient is the insured [address] [phone] [id number] Angelia Salcedo Self - patient is the insured Medical (General) History Medical History History ICD Code Past Psychiatric History: Anxiety Disord er,Major Depressive Episode abdominal aortic aneurysm: No atrial fibrillation: No chronic fatigue syndrome: No essential tremor: No hyperlipidemia: No hypertension: No Parkinson's disease: No restless leg syndrome: No stroke: No subdural hematoma: No type 1 diabetes mellitus: No type 2 diabetes mellitus: No vitamin B12 deficiency: Yes vitamin D deficiency: Yes
--- OUTSIDE RECORDS SUMMARY | 2024-08-06 08:37 | XMS_ITS | Clinical Summary ---
Author Organization [facility] Address [address] [place] [address] Care Team Providers Care Drum Drier Operator Name Role Phone Noel Gomez DO Primary Care Provider [phone] Source Comments [facility],non-owned Affiliates and Associated Physician Practices is amultiple site organization consisting of ambulatory clinics and [place]in [place] and [place]. This disclosure is being madepursuant to the Care Everywhere program and may not contain all information available regarding this patient. Last updated 18.[facility] Allergies Active Allergy Reactions Criticality Noted Date Comments Codeine Nausea and/or Vomiting Low 05/31/2012 Nitrofurantoin Other Medium 05/31/2012 Difficulty breathing Medications * Be aware that medications may not be up to date on this document. Alwaysverify current medications with the patient. Medication Sig Dispensed Refills Start Date End Date Status rosuvastatin (CRESTOR) 40 MG tablet Take 40 mg by mouth once daily. Active ALPRAZolam (XANAX) 1 MG tablet Take 1 mg by mouth 3 times daily as needed. Active isosorbide mononitrate CR 24hr (IMDUR) 60 MG tablet Take 120 mg by mouth once daily. Active montelukast (SINGULAIR) 10 MG tablet Take 10 mg by mouth at bedtime. Active levothyroxine (TIROSINT) 100 MCG capsule Take 100 mcg by mouth daily before breakfast. Active DESVENLAFAXINE SR 24hr (PRISTIQ) 100 MG tablet Take 100 mg by mouth once daily. Active citalopram (CELEXA) 20 MG tablet Take 20 mg by mouth once daily. Active aspirin 81 MG tablet Take 81 mg by mouth once daily. Active topiramate (TOPAMAX SPRINKLE) 25 MG capsule Take 25 mg by mouth 2 times daily. Active montelukast (SINGULAIR) 10 MG tablet Take 10 mg by mouth at bedtime. Active budesonide-formoterol (SYMBICORT) 160-4.5 MCG/ACT inhaler Inhale 2 Puffs by mouth 2 times daily. Active omeprazole (PRILOSEC) 20 MG capsule Take 20 mg by mouth daily before breakfast. Active albuterol HFA (PROVENTIL;VENTOLIN;PRO AIR) 108 mcg/ACT inhaler Inhale 2 Puffs by mouth every 6 hours as needed. Active hydrocodone-acetaminoph en (VICODIN) 5-500 MG tablet Take 1 Tab by mouth every 6 hours as needed for Pain. 30 Tab 0 07/03/2012 Active Family History Medical History Relation Name Comments Heart Disease Maternal Grandfather Hypercholesterolemia Maternal Grandfather Heart Disease Maternal Grandmother Hypercholesterolemia Maternal Grandmother Depression Mother Diabetes Mother Heart Disease Mother Hypercholesterolemia Mother Cancer - Breast Sister Relation Name Status Comments Maternal Grandfather Maternal Grandmother Mother Sister Social History Tobacco Use Types Packs/Day Years Used Date Smoking Tobacco: Former Cigarettes Q uit: 06/06/1974 Alcohol Use Standard Drinks/Week Comments Yes 0 (1 standard drink = 0.6 oz pur e alcohol) Sex and Gender Information Value Date Recorded Sex Assigned at Not on file Gender Identity Not on file Sexual Orientation Not on file Last Filed Vital Signs Vital Sign Reading Time Taken Comments Blood Pressure 124/70 06/12/2013 1:29 PM PERINATAL TECHNICIAN Pulse 86 07/03/2012 4:20 PM PERINATAL TECHNICIAN Temperature 36.6 C (97.8 F) 07/03/2012 4:20 PM PERINATAL TECHNICIAN Respiratory Rate 18 07/03/2012 4:20 PM PERINATAL TECHNICIAN Oxygen Saturation 99% 07/03/2012 4:20 PM PERINATAL TECHNICIAN Inhaled Oxygen Concentration - - Weight 60.8 kg (134 lb) 06/12/2013 1:29 PM PERINATAL TECHNICIAN Height 157.5 cm (5' 2 ) 06/12/2013 1:29 PM PERINATAL TECHNICIAN Body Mass Index 24.51 06/12/2013 1:29 PM PERINATAL TECHNICIAN Plan of Treatment Health Maintenance Due Date Last Done Comments BONE DENSITY TESTING 1945 MEDICARE AWV 12 MONTHS 1945 HEPATITIS C SCREENING 12/31/1964 DTAP/TDAP/TD VACCINES (1 - Tdap) 1966 PNEUMOCOCCAL VACCINE 50+ (1 of 1 - PCV) 1997 ZOSTER VACCINE (1 of 2) 1997 Respiratory Syncytial Virus (RSV) Vaccine Pt: or over 60 yrs (1 - 1-dose 75+ series) 2022 COVID-19 VACCINE (2 - season) 2023 07/06/2020 DEPRESSION SCREENING 05/01/2024 INFLUENZA VACCINE (Season Ended) 2024 03/30/2021, 02/25/2020, 03/13/2019, Additional history exists HEPATITIS B VACCINE Aged Out No longe r eligible based on patient's age to complete this topic HIB VACCINE Aged Out No longer eligi ble based on patient's age to complete this topic HPV VACCINE Aged Out No longer eligi ble based on patient's age to complete this topic MENINGOCOCCAL (Group B) VACCINE SHARED DECISION-MAKING Aged Out No longer eligible based on patient's age to complete this topic MENINGOCOCCAL GROUPS A/C/Y/W VACCINE Aged Out No longer eligible based on patient's age to complete this topic Medical Devices Implanted Type Area News Assistant Device Identifier Shelf Expiration Date Model / Serial / Lot Slng Lynx Mid-Ureth Implanted:Qty: 1 on 07/03/2012 by Erika Hernández MD at [facility] N/A: Pelvis [employer] Scimed 03/31/2015 [id number] / / [id number] Care Teams Drum Drier Operator Relationship Specialty Start Date End Date Noel Gomez DO PCP - General Internal Medicine 07/03/12
--- OUTSIDE RECORDS SUMMARY | 2024-08-06 08:37 | XMS_ITS | Data Portability ---
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 Studies ordered as below. Discussed plan with patient/careg iver, who expressed understanding . Follow up as noted below. Not available 10/25/2023 12:15:53 02/13/2024 02/13/2024 Patient presented for follow up. Studies ordered as below. Discussed plan with patient/careg iver, who expressed understanding . Follow up as noted below. Not available 02/13/2024 12:53:14 05/13/2024 05/13/2024 Patient presented for follow up. Studies ordered as below. Discussed plan with patient/careg iver, who expressed understanding . Follow up as noted below. Not available 05/13/2024 12:33:52 06/04/2024 06/04/2024 Patient presented for follow up. Studies ordered as below. Discussed plan with patient/careg iver, who expressed understanding . Follow up as noted below. Not available 06/04/2024 10:50:07 Plan of Treatment Reminders Order Date Submit Date Provider Last Modified By Organization Details Last Modified Time Details Appointments ESTABLISH ED PATIENT 15 2024 10:30A Pam Gudino MD Not available Not available Not available Lab AST/SGOT (aspartat e aminotran sferase), serum or plasma 2024 025 [facility], [address], [place], [address], 06/05/2024 15:34:49 ALT (alanine aminotran sferase), serum or plasma 2024 025 [facility], [address], [place], [address], 06/05/2024 15:34:48 lipid panel w/ direct LDL, serum 2024 025 [facility], [address], [place], [address], 05/20/2024 04:06:10 CMP, serum or plasma 2024 025 [facility], [address], [place], [address], 05/14/2024 16:23:13 CBC w/ auto diff 2024 025 [facility], [address], [place], [address], 05/14/2024 16:23:13 HbA1c (hemoglob in A1c), blood 2024 025 [facility], [address], [place], [address], 05/14/2024 16:23:12 TSH + free T4, serum 2024 025 [facility], [address] [place], [address], 05/20/2024 04:06:10 TSH + free T4, serum 2024 025 [facility], [address], [place], [address], 05/20/2024 04:06:10 tb (M tuberculo sis), ifn-gamma rose, blood 2023 024 [facility], [address], [place], [address], 02/13/2024 13:21:19 HbA1c (hemoglob in A1c), blood 2023 024 [facility], [address], [place], [address], 02/15/2024 15:16:18 lipid panel w/ direct LDL, serum 2023 024 [facility], [address], [place], [address], 02/20/2024 04:10:19 TSH, serum or plasma 2023 024 [facility], [address], [place], [address], 02/20/2024 04:10:19 vitamin B12, serum 2023 024 [facility], [address] [place], [address], 02/15/2024 15:16:23 CMP, serum or plasma 2023 024 [facility], [address], [place], [address], 02/15/2024 15:16:20 CBC w/ auto diff 2023 024 [facility], [address] [place], [address], 02/15/2024 15:16:19 CBC w/ auto diff 2023 024 [facility], [address], [place], [address], 11/02/2023 04:09:02 CMP, serum or plasma 2023 024 [facility], [address], [place], [address], 11/02/2023 04:09:02 lipid panel w/ direct LDL, serum 2023 024 [facility], [address], [place], [address], 11/02/2023 04:09:01 CBC 2023 024 [email or web address], [address], [place], [address], 11/09/2023 16:03:54 vitamin D, 25-hydrox y, total, serum 2023 024 [facility], [address] [place] [address], [address], 11/01/2023 04:12:46 TSH + free T4, serum 2023 024 [facility], [address], [place], [address], 11/02/2023 04:09:02 vitamin B12 + folate, serum or blood 2023 024 [facility], [address], [place], [address], 11/02/2023 04:09:01 Referral pulmonolo gist referral 2024 025 [place] [facility], [address], [place], [address], 07/16/2024 13:29:[address] referral 2024 025 [facility], [address] [place], [address], 06/10/2024 04:10:[address] referral 2023 024 [facility], [address] [place], [address], 11/22/2023 04:12:31 Procedures None recorded. Surgeries None recorded. Imaging bone density 2024 [facility], [address], [place], [address], 05/28/2024 04:09:34 electroca rdiogram 2024 [facility], [address], [place], [address], 05/13/2024 13:35:46 XR, thoracic spine, 2 view 2023 [facility], [address], [place], [address], 10/30/2023 14:08:03 XR, lumbosacr al spine, 2 or 3 view 2023 024 [facility], [address], [place], [address], 10/30/2023 14:09:30 Medication Orders ciclopiro x 8 % topical solution 2024 [facility], [address] [place] [address], [address], 06/04/2024 11:15:04 sennoside s 8.6 mg-docusa te sodium 50 mg tablet 2024 025 [facility], [address] [place] [address], [address], 05/13/2024 13:07:31 Refresh Tears 0.5 % eye drops 2023 025 [facility], [address] [place] [address], [id number], 05/13/2024 12:55:54 Dodex 1,000 mcg/mL injection solution 10/2023 [facility], [facility] [place], [place], [id number], 02/13/2024 13:21:13 albuterol sulfate HFA 90 mcg/actua tion aerosol inhaler 2023 [facility]58143, [facility] [place], [place], [id number], 02/13/2024 13:21:14 famotidin e 40 mg tablet 2023 [facility] #46978, [facility] [place], [place], [id number], 02/13/2024 13:21:14 pantopraz ole 40 mg tablet,de layed release 2023 [facility] #88437, [address] [place] [address], [id number], 02/13/2024 13:21:15 Dodex 1,000 mcg/mL injection solution 2023 [facility] #62165, [address] [place], [place], [id number], 07/12/2023 15:33:01 Patient TargetsNo targets recorded. Patient Instructions Encounter Date Encounter Id Patient Instructions Last Modified By Organization Details Last Modified Time 07/12/2023 [id number] osteoporosis: ca re instructions mshenouda Not available 07/12/2023 15:32:55 mammogram: about this test mshenouda Not available 07/12/2023 15:32:55 high cholesterol : care instructions mshenouda Not available 07/12/2023 15:32:55 controlling your asthma: care instructions mshenouda Not available 07/12/2023 15:32:55 learning about asthma mshenouda Not available 07/12/2023 15:32:55 garrett's esopha harinder: care instructions mshenouda Not available 07/12/2023 15:32:55 hypothyroidism: care instructions mshenouda Not available 07/12/2023 15:32:55 10/25/2023 [id number] mammogram: about this test mshenouda Not available 10/25/2023 12:57:45 arthritis: care instructions mshenouda Not available 10/25/2023 12:57:46 osteoporosis: ca re instructions mshenouda Not available 10/25/2023 12:57:46 sleep apnea: car e instructions mshenouda Not available 10/25/2023 12:57:45 garrett's esopha harinder: care instructions mshenouda Not available 10/25/2023 12:57:45 gastroesophageal reflux disease (GERD): care instructions mshenouda Not available 10/25/2023 12:57:45 high cholesterol : care instructions mshenouda Not available 10/25/2023 12:57:46 hernia: care instructions mshenouda Not available 10/25/2023 12:57:47 bipolar disorder : care instructions mshenouda Not available 10/25/2023 12:57:45 learning about m ood disorders mshenouda Not available 10/25/2023 12:57:46 learning about asthma mshenouda Not available 10/25/2023 12:57:46 spirometry testing* AIDEN Not availa ble 10/25/2023 18:53:29 hypothyroidism: care instructions mshenouda Not available 10/25/2023 12:57:45 neuropathic pain : care instructions mshenouda Not available 10/25/2023 12:57:46 living will mshenouda Not available 09/30 12:55:48 02/13/2024 [id number] high cholesterol : care instructions mshenouda Not available 02/13/2024 13:21:04 dry eyes: care instructions mshenouda Not available 02/13/2024 13:21:04 bipolar disorder : care instructions mshenouda Not available 02/13/2024 13:21:03 learning about m ood disorders mshenouda Not available 02/13/2024 13:21:03 learning about asthma mshenouda Not available 02/13/2024 13:21:03 garrett's esopha harinder: care instructions mshenouda Not available 02/13/2024 13:21:04 05/13/2024 [id number] osteoporosis: ca re instructions mshenouda Not available 05/13/2024 13:05:52 mammogram: about this test mshenouda Not available 05/13/2024 13:05:52 interstitial rob g disease: care instructions mshenouda Not available 05/13/2024 13:05:51 bipolar disorder : care instructions mshenouda Not available 05/13/2024 13:05:52 learning about m ood disorders mshenouda Not available 05/13/2024 13:05:52 hypothyroidism: care instructions mshenouda Not available 05/13/2024 13:05:53 Reason for Referral Primary Montessori Teacher Referral for Kapil ign hypertension Referring Physician: Naila Gudino, Internal Medicine, Encounter Date: 10/25/2023 Diamond Finishing Supervisor Referral for I nterstitial lung disease Referring Physician: Naila Gudino, Internal Medicine, Encounter Date: 05/13/2024 Primary Montessori Teacher Referral for Kapil ign hypertension Referring Physician: Naila Gudino, Internal Medicine, Encounter Date: 05/13/2024 Results Created Date Observation Date Name Description Value Unit Range Abnormal Flag Note LastModifiedBy Organization Detail LastModifiedTime 06/19/1906/19/2023 BASIC METAB OLIC PANEL sodium 141 mmol/ L 134-14 4 Not Available [facility] [address] [facility] [address], [place], [address], 06/20/2023 14:02:43 06/19/19 24 06/19/2023 BASIC METAB OLIC PANEL potassium 3.8 mmol/ L 3.5-5. 2 Not Available [facility] [address] [facility] [address], [place], [address], 06/20/2023 14:02:43 06/19/19 24 06/19/2023 BASIC METAB OLIC PANEL chloride 102 mmol/ L 97-108 Not Available [facility] [address] [facility] [address], [place], [address], 06/20/2023 14:02:43 06/19/19 24 06/19/2023 BASIC METAB OLIC PANEL carbon dioxide (co2) 31.0 mmol/ L 18.0-2 9.0 high Not Available [facility] [address] [facility] [address], [place], [address], 06/20/2023 14:02:43 06/19/19 24 06/19/2023 BASIC METAB OLIC PANEL calcium 8.8 mg/dL 8.7-10 .3 Not Available [facility] [address] [facility] [address], [place], [address], 06/20/2023 14:02:43 06/19/19 24 06/19/2023 BASIC METAB OLIC PANEL glucose 108 mg/dL 65-99 high Colette l Fasti ng: < 100 mg/dL Impai red Fasti n - 125 mg/dL Diagn ostic of Diabe magaly: => 126 mg/dL Ameri can Diabe magaly Assoc iatio n, 2008 Not Available [facility] [address] [facility] [address], [place], [address], 06/20/2023 14:02:43 06/19/19 24 06/19/2023 BASIC METAB OLIC PANEL urea nitrogen (BUN) 7 mg/dL 8-23 low Not Available [facility] [address] [facility] [address], [place], [address], 06/20/2023 14:02:43 06/19/19 24 06/19/2023 BASIC METAB OLIC PANEL creatinine 0.69 mg/dL 0.57-1 .00 Not Available [facility] [address] [facility] [address], [place], [address], 06/20/2023 14:02:43 06/19/19 24 06/19/2023 BASIC METAB OLIC PANEL eGFR for nonafrican AM 83 mL/mi nute/ 1.73_ m2 >59 Not Available [facility] [address] [facility] [address], [place], [address], 06/20/2023 14:02:43 06/19/19 24 06/19/2023 BASIC METAB OLIC PANEL eGFR for AM 100 mL/mi nute/ 1.73_ m2 >59 MDRD Study Equat ion: The calcu lated GFR is NOT appli cable for pedia tric (< 18 years old) and > 70 year old patie nts and patie nts that are NOT of stead y state . Not Available [facility] [address] [facility] [address], [place], [address], 06/20/2023 14:02:43 06/19/19 24 06/19/2023 BASIC METAB OLIC PANEL BUN/creatini ne ratio (calculated) 10.1 ratio 8.0-20 .0 Not Available [facility] [address], [place], [address], 06/20/2023 14:02:43 06/19/19 24 06/19/2023 BASIC METAB OLIC PANEL serum hemolysis index NORMAL index normal Not Available [facility] [address], [place], [address], 06/20/2023 14:02:43 10/25/19 24 10/25/2023 carli metry testi ng* Spirometry Not Available [facility] [facility], [facility] [address], [place], [address], 10/25/2023 12:54:29 02/13/20 24 02/13/2024 HEMOG LOBIN A1C hemoglobin A1C 5.4 % 4.8-5. 6 COLETTE L RANGE BASED ON ALVIN COL 2 (DCCT /NGSP ): Non-D iabet ic: < 5.7% Pre-D iabet es: 5.7 - 6.4% Diabe magaly: => 6.5% GLYCE ZIGGY CONTR OL: < 7.0% Not Available [facility] [address] [facility] [address], [place], [address], 02/15/2024 15:16:18 02/13/2021 0202/13/2024 HEMOG LOBIN A1C estimated average glucose 109 Not Available [facility] [address], [place], [address], 02/15/2024 15:16:18 02/13/20 24 02/13/2024 CBC WITH AUTO- DIFFE RENTI AL WBC 8.0 10*3/ uL 3.4-10 .8 Not Available [facility] [address], [place], [address], 02/15/2024 15:16:19 02/13/2002/13/2024 CBC WITH AUTO- DIFFE RENTI AL RBC 5.24 10*6/ uL 3.80-5 .30 Not Available [facility] [address], [place], [address], 02/15/2024 15:16:19 02/13/2002/13/2024 CBC WITH AUTO- DIFFE RENTI AL HGB 14.4 g/dL 11.1-1 5.9 Not Available [facility] [address], [place], [address], 02/15/2024 15:16:19 02/13/2002/13/2024 CBC WITH AUTO- DIFFE RENTI AL HCT 44.6 % 34.0-4 6.6 Not Available [facility] [address], [place], [address], 02/15/2024 15:16:19 02/13/2002/13/2024 CBC WITH AUTO- DIFFE RENTI AL MCV 85 fL 79-97 Not Available [facility] [address], [place], [address], 02/15/2024 15:16:19 02/13/20 24 02/13/2024 CBC WITH AUTO- DIFFE RENTI AL MCH 27.5 pg 26.6-3 3.0 Not Available [facility] [address], [place], [address], 02/15/2024 15:16:19 02/13/2002/13/2024 CBC WITH AUTO- DIFFE RENTI AL MCHC 32.3 g/dL 31.5-3 5.7 Not Available [facility] [address] [facility] [address], [place], [address], 02/15/2024 15:16:19 02/13/2002/13/2024 CBC WITH AUTO- DIFFE RENTI AL RDW 13.5 % 11.5-1 4.5 Not Available [facility] [address] [facility] [address], [place], [address], 02/15/2024 15:16:19 02/13/2002/13/2024 CBC WITH AUTO- DIFFE RENTI AL platelets 242 10*3/ uL 150-40 0 Not Available [facility] [address] [facility] [address], [place], [address], 02/15/2024 15:16:19 02/13/2002/13/2024 CBC WITH AUTO- DIFFE RENTI AL MPV 12 fL 9-13 Not Available [facility] [address] [facility] [address], [place], [address], 02/15/2024 15:16:19 02/13/2002/13/2024 CBC WITH AUTO- DIFFE RENTI AL neutrophils 81.6 % 40.0-7 4.0 high Not Available [facility] [address], [place], [address], 02/15/2024 15:16:19 02/13/2002/13/2024 CBC WITH AUTO- DIFFE RENTI AL absolute neutrophils 6.52 10*3/ uL 1.40-7 .00 Not Available [facility] [address], [place], [address], 02/15/2024 15:16:19 02/13/20 24 02/13/2024 CBC WITH AUTO- DIFFE RENTI AL lymphocytes 10.6 % 14.0-4 6.0 low Not Available [facility] [address] [facility] [address], [place], [address], 02/15/2024 15:16:19 02/13/2002/13/2024 CBC WITH AUTO- DIFFE RENTI AL absolute lymphocytes 0.85 10*3/ uL 0.70-3 .10 Not Available [facility] [address] [facility] [address], [place], [address], 02/15/2024 15:16:19 02/13/2002/13/2024 CBC WITH AUTO- DIFFE RENTI AL monocytes 4.6 % 4.0-12 .0 Not Available [facility] [address] [facility] [address], [place], [address], 02/15/2024 15:16:19 02/13/2002/13/2024 CBC WITH AUTO- DIFFE RENTI AL absolute monocytes 0.37 10*3/ uL 0.10-0 .90 Not Available [facility] [address] [facility] [address], [place], [address], 02/15/2024 15:16:19 02/13/2002/13/2024 CBC WITH AUTO- DIFFE RENTI AL eosinophils 2.3 % 0.0-5. 0 Not Available [facility] [address] [facility] [address], [place], [address], 02/15/2024 15:16:19 02/13/20 24 02/13/2024 CBC WITH AUTO- DIFFE RENTI AL absolute eosinophils 0.18 10*3/ uL 0.00-0 .40 Not Available [facility] [address] [facility] [address], [place], [address], 02/15/2024 15:16:19 02/13/20 24 02/13/2024 CBC WITH AUTO- DIFFE RENTI AL basophils 0.6 % 0.0-3. 0 Not Available [facility] [address] [facility] [address], [place], [address], 02/15/2024 15:16:19 02/13/20 24 02/13/2024 CBC WITH AUTO- DIFFE RENTI AL absolute basophils 0.05 10*3/ uL 0.00-0 .20 Not Available [facility] [address] [facility] [address], [place], [address], 02/15/2024 15:16:19 02/13/2002/13/2024 CBC WITH AUTO- DIFFE RENTI AL imm. gran. 0.3 % 0.0-2. 0 Not Available [facility] [address] [facility] [address], [place], [address], 02/15/2024 15:16:19 02/13/2002/13/2024 CBC WITH AUTO- DIFFE RENTI AL abs. imm. gran. 0.02 10*3/ uL 0.00-0 .10 Not Available [facility] [address] [facility] [address], [place], [address], 02/15/2024 15:16:19 02/13/20 24 02/13/2024 COMPR EHENS JITENDRA METAB OLIC PANEL sodium 143 mmol/ L 134-14 4 Not Available [facility] [address] [facility] [address], [place], [address], 02/15/2024 15:16:20 02/13/2002/13/2024 COMPR EHENS JITENDRA METAB OLIC PANEL potassium 4.4 mmol/ L 3.5-5. 2 Not Available [facility] [address] [facility] [address], [place], [address], 02/15/2024 15:16:20 02/13/2002/13/2024 COMPR EHENS JITENDRA METAB OLIC PANEL chloride 101 mmol/ L 98-107 Not Available [facility] [address] [facility] [address], [place], [address], 02/15/2024 15:16:20 02/13/20 24 02/13/2024 COMPR EHENS JITENDRA METAB OLIC PANEL carbon dioxide (co2) 25.0 mmol/ L 18.0-2 9.0 Not Available [facility] [address] [facility] [address], [place], [address], 02/15/2024 15:16:20 02/13/20 24 02/13/2024 COMPR EHENS JITENDRA METAB OLIC PANEL glucose 93 mg/dL 65-99 Colette l Fasti n - 99 mg/dL Impai red Fasti n - 125 mg/dL Diagn ostic of Diabe magaly: => 126 mg/dL Ameri can Diabe magaly Assoc iatio n, 2007 Not Available [facility] [address] [facility] [address], [place], [address], 02/15/2024 15:16:20 02/13/20 24 02/13/2024 COMPR EHENS JITENDRA METAB OLIC PANEL urea nitrogen (BUN) 6 mg/dL 8-23 low Not Available [facility] [address] [facility] [address], [place], [address], 02/15/2024 15:16:20 02/13/2002/13/2024 COMPR EHENS JITENDRA METAB OLIC PANEL creatinine 0.68 mg/dL 0.57-1 .00 Not Available [facility] [address] [facility] [address], [place], [address], 02/15/2024 15:16:20 02/13/20 24 02/13/2024 COMPR EHENS JITENDRA METAB OLIC PANEL eGFR 90 mL/mi nute/ 1.73_ m2 >59 MDRD Study Equat ion: The calcu lated GFR is NOT appli cable for pedia tric (< 18 years old) and > 70 year old patie nts and patie nts that are NOT of stead y state . Not Available [facility] [address] [facility] [address], [place], [address], 02/15/2024 15:16:20 02/13/20 24 02/13/2024 COMPR EHENS JITENDRA METAB OLIC PANEL calcium 9.5 mg/dL 8.7-10 .3 Not Available [facility] [address] [facility] [address], [place], [address], 02/15/2024 15:16:20 02/13/2002/13/2024 COMPR EHENS JITENDRA METAB OLIC PANEL protein, total 7.7 gm/dL 6.4-8. 3 Not Available [facility] [address] [facility] [address], [place], [address], 02/15/2024 15:16:20 02/13/2002/13/2024 COMPR EHENS JITENDRA METAB OLIC PANEL albumin 4.7 gm/dL 3.5-5. 2 Not Available [facility] [address] [facility] [address], [place], [address], 02/15/2024 15:16:20 02/13/20 24 02/13/2024 COMPR EHENS JITENDRA METAB OLIC PANEL bilirubin, total 0.50 mg/dL 0.00-1 .20 Not Available [facility] [address] [facility] [address], [place], [address], 02/15/2024 15:16:20 02/13/2002/13/2024 COMPR EHENS JITENDRA METAB OLIC PANEL alkaline phosphatase (ALP) 56 U/L 39-117 Not Available [facility] [address] [facility] [address], [place], [address], 02/15/2024 15:16:20 02/13/20 24 02/13/2024 COMPR EHENS JITENDRA METAB OLIC PANEL aspartate aminotransfe rase (AST) 32 U/L 0-32 Not Available [facility] [address] [facility] [address], [place], [address], 02/15/2024 15:16:20 02/13/20 24 02/13/2024 COMPR EHENS JITENDRA METAB OLIC PANEL alanine aminotransfe rase (ALT) 22 U/L 0-33 Not Available [facility] [address] [facility] [address], [place], [address], 02/15/2024 15:16:20 02/13/20 24 02/13/2024 COMPR EHENS JITENDRA METAB OLIC PANEL A/G ratio (calculated) 1.6 ratio 1.0-2. 7 Not Available [facility] [address] [facility] [address], [place], [address], 02/15/2024 15:16:20 02/13/20 24 02/13/2024 COMPR EHENS JITENDRA METAB OLIC PANEL globulin (calculated) 3.0 gm/dL 1.5-3. 8 Not Available [facility] [address] [facility] [address], [place], [address], 02/15/2024 15:16:20 02/13/20 24 02/13/2024 COMPR EHENS JITENDRA METAB OLIC PANEL BUN/creatini ne ratio (calculated) 8.8 ratio 8.0-20 .0 Not Available [facility] [address] [facility] [address], [place], [address], 02/15/2024 15:16:20 02/13/20 24 02/13/2024 COMPR EHENS JITENDRA METAB OLIC PANEL serum hemolysis index SLIGHT LY HEMOLY ZED index normal abnormal Not Available [facility] [address] [facility] [address], [place], [address], 02/15/2024 15:16:20 02/13/20 24 02/13/2024 LIPID PANEL W/ CALC. LDL cholesterol, total 159 mg/dL 100-19 9 Not Available [address], [place], [address], 02/15/2024 15:16:21 02/13/20 24 02/13/2024 LIPID PANEL W/ CALC. LDL HDL cholesterol 74 mg/dL =>40 Not Available [facility] [address] [facility] [address], [place], [address], 02/15/2024 15:16:21 02/13/2002/13/2024 LIPID PANEL W/ CALC. LDL LDL cholesterol (calculated) 67 mg/dL 0-99 Not Available [facility] [address] [facility] [address], [place], [address], 02/15/2024 15:16:21 02/13/2002/13/2024 LIPID PANEL W/ CALC. LDL triglyceride s 90 mg/dL 50-149 Not Available [facility] [address] [facility] [address], [place], [address], 02/15/2024 15:16:21 02/13/20 24 02/13/2024 LIPID PANEL W/ CALC. LDL chol/HDL ratio (calculated) 2.15 ratio 0.00-5 .00 Not Available [facility] [address] [facility] [address], [place], [address], 02/15/2024 15:16:21 02/13/2002/13/2024 LIPID PANEL W/ CALC. LDL VLDL cholesterol (calculated) 18 mg/dL 5-40 Not Available [facility] [address] [facility] [address], [place], [address], 02/15/2024 15:16:21 02/13/2002/13/2024 THYRO ID-ST IM. HORMO NE (TSH) thyroid-stim . hormone (TSH), hs 0.94 uIU/m L 0.27-4 .20 Not Available [facility] [address] [facility] [address], [place], [address], 02/15/2024 15:16:22 02/13/20 24 02/13/2024 VITAM IN B12 vitamin B12 526 pg/mL 232-12 45 Not Available [facility] [address] [facility] [address], [place], [address], 02/15/2024 15:16:23 02/13/20 24 02/15/2024 QUANT IFERO N - TB GOLD PLUS quantiferon incubation TEST NOT PERFOR MED. normal Test not perfo rmed. The speci men submi tted does not meet the labor atory 's crite jackie for accep tabil ity (spec imen was not recei sabrina withi n 16 hours of colle ction ). Pleas e resub bryan if clini mian indic ated. Conta cted Ismet a Not Available [facility] [address] [facility] [address], [place], [address], 02/15/2024 15:16:24 02/13/20 24 02/15/2024 QUANT IFERO N - TB GOLD PLUS quantiferon- TB gold plus TEST NOT PERFOR MED. normal Test not perfo rmed Not Available [facility] [address] [facility] [address], [place], [address], 02/15/2024 15:16:24 05/13/19 25 05/13/2024 HEMOG LOBIN A1C hemoglobin A1C 5.8 % 4.8-5. 6 high COLETTE L RANGE BASED ON ALVIN COL 2 (DCCT /NGSP ): Non-D iabet ic: < 5.7% Pre-D iabet es: 5.7 - 6.4% Diabe magaly: => 6.5% GLYCE ZIGGY CONTR OL: < 7.0% Not Available [facility] [address] [facility] [address], [place], [address], 05/14/2024 16:23:11 05/13/19 25 05/13/2024 HEMOG LOBIN A1C estimated average glucose 119 Not Available [facility] [address] [facility] [address], [place], [address], 05/14/2024 16:23:11 05/13/19 25 05/13/2024 CBC WITH AUTO- DIFFE RENTI AL WBC 10.3 10*3/ uL 3.4-10 .8 Not Available [facility] [address], [place], [address], 05/14/2024 16:23:12 05/13/19 25 05/13/2024 CBC WITH AUTO- DIFFE RENTI AL RBC 4.94 10*6/ uL 3.80-5 .30 Not Available [facility] [address], [place], [address], 05/14/2024 16:23:12 05/13/19 25 05/13/2024 CBC WITH AUTO- DIFFE RENTI AL HGB 13.6 g/dL 11.1-1 5.9 Not Available [facility] [address], [place], [address], 05/14/2024 16:23:12 05/13/19 25 05/13/2024 CBC WITH AUTO- DIFFE RENTI AL HCT 43.1 % 34.0-4 6.6 Not Available [facility] [address] [facility] [address], [place], [address], 05/14/2024 16:23:12 05/13/19 25 05/13/2024 CBC WITH AUTO- DIFFE RENTI AL MCV 87 fL 79-97 Not Available [facility] [address] [facility], [place], [address], 05/14/2024 16:23:12 05/13/19 25 05/13/2024 CBC WITH AUTO- DIFFE RENTI AL MCH 27.5 pg 26.6-3 3.0 Not Available [facility] [address] [facility] [address], [place], [address], 05/14/2024 16:23:12 05/13/19 25 05/13/2024 CBC WITH AUTO- DIFFE RENTI AL MCHC 31.6 g/dL 31.5-3 5.7 Not Available [facility] [address], [place], [address], 05/14/2024 16:23:12 05/13/19 25 05/13/2024 CBC WITH AUTO- DIFFE RENTI AL RDW 13.9 % 11.5-1 4.5 Not Available [facility] [address], [place], [address], 05/14/2024 16:23:12 05/13/19 25 05/13/2024 CBC WITH AUTO- DIFFE RENTI AL platelets 260 10*3/ uL 150-40 0 Not Available [facility] [address] [facility], [place], [address], 05/14/2024 16:23:12 05/13/19 25 05/13/2024 CBC WITH AUTO- DIFFE RENTI AL MPV 12 fL 9-13 Not Available [facility] [address] [facility] [address], [place], [address], 05/14/2024 16:23:12 05/13/19 25 05/13/2024 CBC WITH AUTO- DIFFE RENTI AL neutrophils 75.2 % 40.0-7 4.0 high Not Available [facility] [address] [facility] [facility] [address], [place], [address], 05/14/2024 16:23:12 05/13/19 25 05/13/2024 CBC WITH AUTO- DIFFE RENTI AL absolute neutrophils 7.74 10*3/ uL 1.40-7 .00 high Not Available [facility] [address] [facility] [facility] [address], [place], [address], 05/14/2024 16:23:12 05/13/19 25 05/13/2024 CBC WITH AUTO- DIFFE RENTI AL lymphocytes 12.6 % 14.0-4 6.0 low Not Available [facility] [address] [facility] [address], [place], [address], 05/14/2024 16:23:12 05/13/19 25 05/13/2024 CBC WITH AUTO- DIFFE RENTI AL absolute lymphocytes 1.30 10*3/ uL 0.70-3 .10 Not Available [facility] [address] [facility] [address], [place], [address], 05/14/2024 16:23:12 05/13/19 25 05/13/2024 CBC WITH AUTO- DIFFE RENTI AL monocytes 5.2 % 4.0-12 .0 Not Available [facility] [address] [facility] [address], [place], [address], 05/14/2024 16:23:12 05/13/19 25 05/13/2024 CBC WITH AUTO- DIFFE RENTI AL absolute monocytes 0.53 10*3/ uL 0.10-0 .90 Not Available [facility] [address] [facility] [address], [place], [address], 05/14/2024 16:23:12 05/13/19 25 05/13/2024 CBC WITH AUTO- DIFFE RENTI AL eosinophils 6.1 % 0.0-5. 0 high Not Available [facility] [address] [facility] [address], [place], [address], 05/14/2024 16:23:12 05/13/19 25 05/13/2024 CBC WITH AUTO- DIFFE RENTI AL absolute eosinophils 0.63 10*3/ uL 0.00-0 .40 high Not Available [facility] [address] [facility] [address], [place], [address], 05/14/2024 16:23:12 05/13/19 25 05/13/2024 CBC WITH AUTO- DIFFE RENTI AL basophils 0.7 % 0.0-3. 0 Not Available [facility] [address] [facility] [address], [place], [address], 05/14/2024 16:23:12 05/13/19 25 05/13/2024 CBC WITH AUTO- DIFFE RENTI AL absolute basophils 0.07 10*3/ uL 0.00-0 .20 Not Available [facility] [address] [facility] [address], [place], [address], 05/14/2024 16:23:12 05/13/19 25 05/13/2024 CBC WITH AUTO- DIFFE RENTI AL imm. gran. 0.2 % 0.0-2. 0 Not Available [facility] [address] [facility] [address], [place], [address], 05/14/2024 16:23:12 05/13/19 25 05/13/2024 CBC WITH AUTO- DIFFE RENTI AL abs. imm. gran. 0.02 10*3/ uL 0.00-0 .10 Not Available [facility] [address] [facility] [address], [place], [address], 05/14/2024 16:23:12 05/13/19 25 05/13/2024 COMPR EHENS JITENDRA METAB OLIC PANEL sodium 143 mmol/ L 134-14 4 Not Available [facility] [address] [facility] [address], [place], [address], 05/14/2024 16:23:13 05/13/19 25 05/13/2024 COMPR EHENS JITENDRA METAB OLIC PANEL potassium 4.3 mmol/ L 3.5-5. 2 Not Available [facility] [address] [facility] [address], [place], [address], 05/14/2024 16:23:13 05/13/19 25 05/13/2024 COMPR EHENS JITENDRA METAB OLIC PANEL chloride 103 mmol/ L 98-107 Not Available [facility] [address] [facility] [address], [place], [address], 05/14/2024 16:23:13 05/13/19 25 05/13/2024 COMPR EHENS JITENDRA METAB OLIC PANEL carbon dioxide (co2) 30.0 mmol/ L 18.0-2 9.0 high Not Available [facility] [address] [facility] [address], [place], [address], 05/14/2024 16:23:13 05/13/19 25 05/13/2024 COMPR EHENS JITENDRA METAB OLIC PANEL glucose 92 mg/dL 65-99 Colette l Fasti n - 99 mg/dL Impai red Fasti n - 125 mg/dL Diagn ostic of Diabe magaly: => 126 mg/dL Ameri can Diabe magaly [facility] i[facility] n, 2007 Not Available [facility] [address] [facility] [address], [place], [address], 05/14/2024 16:23:13 05/13/19 25 05/13/2024 COMPR EHENS JITENDRA METAB OLIC PANEL urea nitrogen (BUN) 8 mg/dL 8-23 Not Available [facility] [address] [facility] [address], [place], [address], 05/14/2024 16:23:13 05/13/19 25 05/13/2024 COMPR EHENS JITENDRA METAB OLIC PANEL creatinine 0.57 mg/dL 0.57-1 .00 Not Available [facility] [address] [facility] [address], [place], [address], 05/14/2024 16:23:13 05/13/19 25 05/13/2024 COMPR EHENS JITENDRA METAB OLIC PANEL eGFR 93 mL/mi nute/ 1.73_ m2 >59 MDRD Study Equat ion: The calcu lated GFR is NOT appli cable for pedia tric (< 18 years old) and > 70 year old patie nts and patie nts that are NOT of stead y state . Not Available [facility] [address] [facility] [address], [place], [address], 05/14/2024 16:23:13 05/13/19 25 05/13/2024 COMPR EHENS JITENDRA METAB OLIC PANEL calcium 9.4 mg/dL 8.7-10 .3 Not Available [facility] [address], [place], [address], 05/14/2024 16:23:13 05/13/19 25 05/13/2024 COMPR EHENS JITENDRA METAB OLIC PANEL protein, total 7.0 gm/dL 6.4-8. 3 Not Available [facility] [address], [place], [address], 05/14/2024 16:23:13 05/13/19 25 05/13/2024 COMPR EHENS JITENDRA METAB OLIC PANEL albumin 4.2 gm/dL 3.5-5. 2 Not Available [facility] [address] [facility] [address], [place], [address], 05/14/2024 16:23:13 05/13/19 25 05/13/2024 COMPR EHENS JITENDRA METAB OLIC PANEL bilirubin, total 0.50 mg/dL 0.00-1 .20 Not Available [facility] [address] [facility] [address] [address], [place], [address], 05/14/2024 16:23:13 05/13/19 25 05/13/2024 COMPR EHENS JITENDRA METAB OLIC PANEL alkaline phosphatase (ALP) 61 U/L 39-117 Not Available [facility] [address] [facility] [address], [place], [address], 05/14/2024 16:23:13 05/13/19 25 05/13/2024 COMPR EHENS JITENDRA METAB OLIC PANEL aspartate aminotransfe rase (AST) 38 U/L 0-32 high Not Available [facility] [address] [facility] [address], [place], [address], 05/14/2024 16:23:13 05/13/19 25 05/13/2024 COMPR EHENS JITENDRA METAB OLIC PANEL alanine aminotransfe rase (ALT) 37 U/L 0-33 high Not Available [facility] [address] [facility] [address], [place], [address], 05/14/2024 16:23:13 05/13/19 25 05/13/2024 COMPR EHENS JITENDRA METAB OLIC PANEL A/G ratio (calculated) 1.5 ratio 1.0-2. 7 Not Available [facility] [address] [facility] [address], [place], [address], 05/14/2024 16:23:13 05/13/19 25 05/13/2024 COMPR EHENS JITENDRA METAB OLIC PANEL globulin (calculated) 2.8 gm/dL 1.5-3. 8 Not Available [facility] [address] [facility] [address], [place], [address], 05/14/2024 16:23:13 05/13/19 25 05/13/2024 COMPR EHENS JITENDRA METAB OLIC PANEL BUN/creatini ne ratio (calculated) 14.0 ratio 8.0-20 .0 Not Available [facility] [address] [facility] [address], [place], [address], 05/14/2024 16:23:13 05/13/19 25 05/13/2024 COMPR EHENS JITENDRA METAB OLIC PANEL serum hemolysis index NORMAL index normal Not Available [facility] [address] [facility] [address], [place], [address], 05/14/2024 16:23:13 05/13/19 25 05/13/2024 FREE T4 thyroxine (T4), free 0.88 NG/dL 0.82-1 .77 Not Available [facility] [address] [facility] [address], [place], [address], 05/14/2024 16:23:14 05/13/19 25 05/13/2024 LIPID PANEL W/ LDL MJ STERO L DIREC T cholesterol, total 158 mg/dL 100-19 9 Not Available [facility] [address], [place], [address], 05/14/2024 16:23:15 05/13/19 25 05/13/2024 LIPID PANEL W/ LDL MJ STERO L DIREC T HDL cholesterol 71 mg/dL =>40 Not Available [facility] [address], [place], [address], 05/14/2024 16:23:15 05/13/19 25 05/13/2024 LIPID PANEL W/ LDL MJ STERO L DIREC T LDL cholesterol (direct) 70 mg/dL 0-99 Not Available [facility] [address] [facility] [address], [place], [address], 05/14/2024 16:23:15 05/13/19 25 05/13/2024 LIPID PANEL W/ LDL MJ STERO L DIREC T triglyceride s 82 mg/dL 50-149 Not Available [facility] [address], [place], [address], 05/14/2024 16:23:15 05/13/19 25 05/13/2024 LIPID PANEL W/ LDL MJ STERO L DIREC T VLDL cholesterol (calculated) 16 mg/dL 5-40 Not Available [facility] [address], [place], [address], 05/14/2024 16:23:15 05/13/19 25 05/13/2024 LIPID PANEL W/ LDL MJ STERO L DIREC T chol/HDL ratio (calculated) 2.23 ratio 0.00-5 .00 Not Available [facility] [address], [place], [address], 05/14/2024 16:23:15 05/13/19 25 05/13/2024 LIPID PANEL W/ LDL MJ STERO L DIREC T LDL/HDL ratio (calculated) 0.99 ratio 0.00-3 .60 LDL/H DL Ratio Male Femal e 1/2 Avg. Risk 1.0 1.5 Avg. Risk 3.6 3.2 2x Avg. Risk 6.2 5.0 3x Avg. Risk 8.0 6.1 Not Available [facility] [address] [facility] [address], [place], [address], 05/14/2024 16:23:15 05/13/19 25 05/13/2024 THYRO ID-ST IM. HORMO NE (TSH) thyroid-stim . hormone (TSH) 2.11 uIU/m L 0.27-4 .20 Not Available [facility] [address] [facility] [address], [place], [address], 05/14/2024 16:23:15 06/04/19 25 06/04/2024 ALT (SGPT ) alanine aminotransfe rase (ALT) 23 U/L 0-33 Not Available [facility] [address] [facility] [address], [place], [address], 06/05/2024 15:34:48 06/04/19 25 06/04/2024 ALT (SGPT ) serum hemolysis index Normal index normal Not Available [facility] [address] [facility] [address], [place], [address], 06/05/2024 15:34:48 06/04/19 25 06/04/2024 AST (SGOT ) aspartate aminotransfe rase (AST) 30 U/L 0-32 Not Available [facility] [address] [facility] [address], [place], [address], 06/05/2024 15:34:49 06/04/19 25 06/04/2024 AST (SGOT ) serum hemolysis index Normal index normal Not Available [facility] [address] [facility] [address], [place], [address], 06/05/2024 15:34:49 07/12/19 24 06/01/2023 THU pascualoumou priscilla, ivonne al, bilscot warel No observ ation record ed. [facility] Patient Access Centralized Scheduling Centralized Scheduling [address] [facility] [place], [address], 10/25/2023 12:56:02 10/30/19 24 10/30/2023 XR, thora cic spine , 2 view No observ ation record ed. [facility] [address], [place], [address], 11/01/2023 20:00:17 10/30/19 24 10/30/2023 XR, lumbo sacra l spine , 2 or 3 view No observ ation record ed. [email or web address] [facility] [address], [place], [address], 11/01/2023 20:00:17 05/13/19 25 05/13/2024 elect rocar diogr am No observ ation record ed. [facility] [address], [place], [address], 06/04/2024 11:03:23 05/13/19 25 05/13/2024 elect rocar diogr am No observ ation record ed. [facility] [address], [place], [address], 06/04/2024 11:03:24 Result Notes None recorded. Problems Name Problem SNOMED Code Status Onset Date Resolution Date Notes Provider Name and Address Organization Details Recorded Time Gastroes ophageal reflux disease without esophagi tis 589026670 Active 2023 Naila Gudino MD [address], [place], [address], [facility] 4 17:52:36 Long-ter m drug therapy Active 2023 Naila Gudino MD [address], [place], [address], [facility] 4 13:19:34 Intersti tial lung disease 983873532 Active 2024 Naila Gudino MD [address], [place], [address], [facility] 5 12:56:58 Chronic constipa tion 293516251 Active 2024 Naila Gudino MD [address], [place], [address], [facility] 5 13:05:35 Liver enzymes level above referenc e range 991241117 Active 2024 Naila Gudino MD [address], [place], [address], [facility] 5 20:55:34 Hypogamm aglobuli nemia 455313611 Active 2016 once a month infusion s Naila Gudino MD [address], [place], [address], [facility] 8 12:16:19 Intersti tial lung disease 587200513 Completed 201603/18/2018 Naila Gudino MD [address], [place], [address], [facility] 5 12:56:58 Neuropat hy 414943793 Active 2016 Naila Gudino MD [address], [place], [address], [facility] 8 12:16:19 Disorder of trachea 92933411 Completed 201603/18/2018 collapse d trachea Naial Gudino MD [address], [place], [address], [facility] 8 18:37:51 Benign hyperten du 47792167 Active 2014 Naila Gudino MD [address], [place], [address], [facility] 8 12:16:19 Hypothyr oidism 61565462 Active 2016 Naila Gudino MD [address], [place], [address], [facility] 8 12:16:19 Asthma 613625407 Active 2016 mod , persista nt Naila Gudino MD [address], [place], [address], [facility] 8 18:43:38 Mixed anxiety and depressi ve disorder 222340702 Active 2016 Naila Gudino MD [address], [place], [address], [facility] 8 12:16:19 Hyperlip idemia 31568866 Active 2016 Naila Gudino MD [address], [place], [address], [facility] 8 12:16:19 Obstruct jitendra sleep apnea syndrome 25115153 Active 2017 mild on sleep study 10/2016 Naila Gudino MD [address], [place], [address], [facility] 8 12:16:19 Atrophic gastriti s 78218729 Active 2017 autoimmu ne , on GI note 08/15/17 Naila Gudino MD [address], [place], [address], [facility] 8 18:08:52 Palpitat ions - rapid 481739353 Completed 201603/18/2018 Naila Gudino MD [address], [place], [address], [facility] 8 18:40:17 Recurren t major depressi ve episodes , moderate 570608971 Completed 201403/18/2018 Naila Gudino MD [address], [place], [address], [facility] 8 18:37:29 Dyslipid emia 822726260 Completed 201408/21/2019 Naila Gudino MD [address], [place], [address], [facility] 0 12:20:51 Knee pain Completed 201503/18/2018 Naila Gudino MD [address], [place], [address], [facility] 8 18:40:24 Disorder of lung 10338047 Completed 201403/18/2018 Naila Gudino MD [address], [place], [address], [facility] 8 18:37:02 Irregula r heart rate Active 2014 Naila Gudino MD [address], [place], [address], [facility] 8 12:16:19 Depressi ve disorder 23334555 Completed 201403/18/2018 Naila Gudino MD [address], [place], [address], [facility] 8 18:37:35 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 69473432370 07 Active 2014 Naila Gudino MD [address], [place], [address], [facility] 8 12:16:19 Tenderne ss of right upper quadrant of abdomen 721831596 Completed 201603/18/2018 Naila Gudino MD [address], [place], [address], [place] [facility] 8 18:41:45 Hoarse 20314015 Completed 201403/18/2018 Naila Gudino MD [address], [place], [address], [place] [facility] 8 18:41:49 Palpitat ions 68470549 Completed 201303/18/2018 Naila Gudino MD [address], [place], [address], [place] [facility] 8 18:36:47 Chronic obstruct jitendra pulmonar y disease 74694698 Completed 201503/18/2018 Naila Gudino MD [address], [place], [address], [facility] 8 18:40:06 Fibrosis of lung 76629295 Completed 201303/18/2018 Naila Gudino MD [address], [place], [address], [facility] 9 18:46:01 Dizzines s 627622641 Completed 201603/18/2018 Naila Gudino MD [address], [place], [address], [facility] 8 18:41:33 Low blood pressure 42281637 Active 2016 Naila Gudino MD [address], [place], [address], [place] [facility] 8 12:16:19 Rib pain 442881305 Completed 201503/18/2018 Naila Gudino MD [address], [place], [address], [facility] 8 18:40:21 Imaging result abnormal 458402558 Completed 201403/18/2018 Naila Gudino MD [address], [place], [address], [facility] 8 18:36:31 Gastroes ophageal reflux disease 628210516 Active 2015 Naila Gudino MD [address], [place], [address], [facility] 8 12:16:19 Dyspnea on exertion 56696555 Completed 201403/18/2018 Naila Gudino MD [address], [place], [address], [facility] 8 18:43:57 Diarrhea 40441313 Completed 201603/18/2018 Naila Gudino MD [address], [place], [address], [facility] 8 18:44:01 Hernia of anterior abdomina l wall 946072247 Active 2016 Naila Gudino MD [address], [place], [address], [facility] 8 12:16:19 Garrett' s esophagu s 983197971 Active 2017 Naila Gudino MD [address], [place], [address], [facility] 8 17:03:05 Vitamin D deficien cy 09801356 Active 2017 Naila Gudino MD [address], [place], [address], [facility] 8 17:05:04 Vitamin B12 deficien cy (non anemic) 16701660 Active 2017 Naila Gudino MD [address], [place], [address], [facility] 8 17:05:37 Tracheob ronchoma lacia 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 Active 2017 per pulm notes 03/13/18 Naila Gudino MD [address], [place], [address], [place] [facility] 8 18:38:20 Vocal cord dysfunct ion 139651463 Active 2017 per pulm 03/13/18 Naila Gudino MD [address], [place], [address], [place] [facility] 8 18:38:45 Bipolar disorder 96908748 Active 2017 Naila Gudino MD [address], [place], [address], [place] [facility] 8 18:39:15 Nonspeci fic intersti tial pneumoni tis 497303164 Active 2017 Mild per pulm 03/13/18 Naila Gudino MD [address], [place], [address], [place] [facility] 8 18:43:07 Body mass index 20-24 - normal 108647094 Active 2018 Kirstie [facility], [facility] 9 11:20:57 Steatosi s of liver 823486574 Active [address] abd 01/22/19 Naila Gudino MD [address], [place], [address], [place] [facility] 9 18:45:36 Fibrosis of lung 29703452 Active [address] abd 01/22/19 Naila Gudino MD [address], [place], [address], [place] [facility] 9 18:46:01 Finding of pancreas 783456444 Active [address] abd 01/22/19 Naila Gudino MD [address], [place], [address], [place] [facility] 9 18:47:25 Neoplasm of pancreas 131640037 Active 2018 Naila Gudino MD [address], [place], [address], [facility] 9 13:37:53 Osteoart hritis 046859544 Active 2019 Naila Gudino MD [address], [place], [address], [facility] 0 12:21:55 Osteopen ia 294567929 Active 2020 Naila Gudino MD [address], [place], [address], [facility] 1 15:37:19 Osteoart hritis of right knee joint [id number] 9100 Active 2020 Naila Gudino MD [address], [place], [address], [facility] 1 12:31:27 Cyst of skin 967165578 Active 2021 Naila Gudino MD [address], [place], [address], [facility] [place] 2 13:37:48 Mixed hyperlip idemia 714579013 Active 2021 Naila Gudino MD [address], [place], [address], [facility] [place] 2 15:07:19 Menopaus e Active 2021 Naila Gudino MD [address], [place], [address], [facility] [place] 2 12:55:48 Coronary arterios clerosis 63438732 Active 2022 Naila Gudino MD [address], [place], [address], [facility] [place] 3 13:08:33 Low back pain 653294422 Active 2022 Naila Gudino MD [address], [place], [address], [facility] [place] 3 13:14:18 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 40263792956 9106 Active 2022 Naila Gudino MD [address], [place], [address], [facility] [place] 3 21:22:43 Compress ion fracture of thoracic vertebra 78416976160 04 Active 2022 Naila Gudino MD [address], [place], [address], [facility] [place] 3 11:27:50 Compress ion fracture of lumbar spine 528930627 Active 2022 Naila Gudino MD [address], [place], [address], [facility] [place] 3 11:27:51 Cyst of kidney 093841062 Active 2022 Naila Gudino MD [address], [place], [address], [facility] [place] 3 11:35:26 Osteopor osis 51193627 Active 2022 Naila Gudino MD [address], [place], [address], [facility] [place] 3 17:21:54 Chronic hypotens ion 69088652 Active 2022 Naila Gudino MD [address], [place], [address], [facility] [place] 3 17:13:39 History of SARS-CoV -2 [id number] 4276355 Active 2023 Naila Gudino MD [address], [place], [address], [facility] [place] 4 13:46:36 Problem Notes None recorded. Procedures Surgical History Date Name Laterality Status Provider Name and Address Organization Details Recorded Time 023 Colonoscopy completed Naila Gudino MD [address], [place], [address], [facility] [place] 10/23/2022 18:50:41 018 Cystourethroscopy completed Naila Gudino MD [address], [place], [address], [facility] [place] 09/29/2017 12:09:21 018 Date of Last Mammogram completed Karly Leonorkatia [facility] 11/09/2017 16:32:33 018 Date of Last Colonoscopy completed Michelle Varela [facility] 11/25/2020 12:15:28 018 Colonoscopy completed Naila Gudino MD [address], [place], [address], [facility] [place] 08/28/2017 17:10:59 975 Total Hysterectomy completed ZHANNA SANDOVAL APN [address], [place], [address], [facility] [place] 11/07/2016 11:21:31 Cholecystectomy completed CLAUDIA BOOTH [facility] 11/07/2016 11:14:45 Imaging Results Imaging Date Name Status LastModified by Organization Details LastModified Time 06/01/2023 MAMMO, screening, digital, bilateral completed [facility] Patient Access Centralized Scheduling Centralized Scheduling [address] [place], [address], 10/25/2023 12:56:02 10/30/2023 XR, thoracic spine, 2 view completed [email or web address] [place] Cloudm[place] [facility], [facility] [address], [place], [address], 11/01/2023 20:00:17 10/30/2023 XR, lumbosacral spine, 2 or 3 view completed [email or web address] [place] [employer] [facility], [facility] [address], [place], [address], 11/01/2023 20:00:17 05/13/2024 electrocardiogram completed [facility], [facility] [address], [place], [address], 06/04/2024 11:03:23 05/13/2024 electrocardiogram completed [facility] christie [facility], [facility] [address], [place], [address], 06/04/2024 11:03:24 Procedure Notes None recorded. Medical Equipment None Reported. Allergies Allergen ID Allergen Name Allergen Category Reaction Reaction Severity Criticality Documentation Date Start Date Code Code System Note Provider Name and Address Organization Details Recorded Time 5800 codeine medicatio n Not available Not available Not available 11/07/20162012 2670 RxNorm Other react ions and sever ities : 'Shor tness of breat h - Sever e', and 'Naus ea And Vomit ing - Sever e'. Naila Gudino MD [address] [facility] [address], [place], [address], [facility] [place] 8 12:12:02 5801 Macrobid medicatio n anaphylax is severe Not available 11/07/2016 58994 1 RxNorm resp distr ess ZHANNA SANDOVAL APN [address] [facility] [address], [place], [address], [facility] [place] 7 11:17:38 6980 nitrofura ntoin medicatio n Not available Not available Not available 10/05/20172012 7454 RxNorm Naila Gudino MD [address] [facility] [address], [place], [address], [facility] [place] 8 12:12:02 7260 Tessalon Perles medicatio n rash Not available Not available 11/09/2017 06584 4 RxNorm Naila Gudino MD [address] [facility] [address], [place], [address], [facility] [place] 8 17:00:04 Medications Name Sig Start Date Stop Date Status Note LastModified by Organization Details LastModified Time Prescriptio n - Prior Authorizati on Request 07/28 completed Not Available Not Available Not Available quetiapine 25 mg tablet active Not Available Not Available Not Available fluconazole 100 mg tablet TAKE 2 TABLETS BY MOUTH FOR ONE DAY AND THEN TAKE 1 TABLET BY MOUTH A DAY FOR 14 DAYS 12/29 completed Not Available Not Available Not Available clotrimazol e 10 mg minh 10/27 completed Not Available Not Available Not Available lamotrigine 150 mg tablet 1 tab PO PM 11/25 completed Not Available Not Available Not Available atorvastati n 80 mg tablet TAKE 1 TABLET BY MOUTH EVERY MORNING 03/31 completed Not Available Not Available Not Available azelastine 0.05 % eye drops INSTILL 1 DROP IN BOTH EYES TWICE DAILY 02/12 completed Not Available Not Available Not Available nystatin 100,000 unit/mL oral suspension SHAKE LIQUID AND TAKE 5 ML BY MOUTH FOUR TIMES DAILY - SWISH AND SWALLOW 12/29 completed Not Available Not Available Not Available prednisone 10 mg tablet 02/09 completed Not Available Not Available Not Available doxycycline hyclate 100 mg capsule TAKE 1 CAPSULE BY MOUTH TWICE DAILY 09/08 completed Not Available Not Available Not Available tizanidine 2 mg tablet Take 1 tablet every 12 hours by oral route. 07/05 completed Not Available Not Available Not Available clindamycin HCl 300 mg capsule Take 1 capsule every 8 hours by oral route. 01/31 completed Not Available Not Available Not Available trazodone 50 mg tablet TAKE 1 TO 3 TABLETS BY MOUTH EVERY DAY AT BEDTIME 05/13 completed Not Available Not Available Not Available cetirizine 10 mg tablet active Not Available Not Available Not Available oxybutynin chloride ER 10 mg tablet,exte nded release 24 hr 11/12 completed Not Available Not Available Not Available azithromyci n 250 mg tablet TAKE 2 TABLETS (500 MG) BY ORAL ROUTE ONCE DAILY FOR 1 DAY THEN 1 TABLET (250 MG) BY ORAL ROUTE ONCE DAILY FOR 4 DAYS 07/08 completed Not Available Not Available Not Available ibuprofen 800 mg tablet 03/21 completed Not Available Not Available Not Available alprazolam 1 mg tablet TAKE 1 TABLET BY MOUTH FOUR TIMES DAILY active Not Available Not Available No t Available fluconazole 150 mg tablet Take 1 tablet by oral route. 01/23 completed Not Available Not Available Not Available hydrocodone 5 mg-acetamin ophen 325 mg tablet 10/22 completed Not Available Not Available Not Available Levaquin 750 mg tablet Take 1 tablet every day by oral route for 5 days. 04/20 completed Not Available Not Available Not Available famotidine 40 mg tablet Take 1 tablet every day by oral route at bedtime. active Not Available Not Available No t Available prednisone 20 mg tablet TAKE 1 TABLET BY MOUTH EVERY DAY 02/09 completed Not Available Not Available Not Available sertraline 100 mg tablet TAKE 1 TABLET BY MOUTH EVERY DAY 10/10 completed Not Available Not Available Not Available prednisone 5 mg tablet TAKE 4 TABLET BY MOUTH DAILY FOR 7 DAYS THEN 2 TABLET BY MOUTH DAILY FOR 14 DAYS THEN 1 TABLET DAILY FOR 14 DAYS 01/26 completed Not Available Not Available Not Available clindamycin HCl 150 mg capsule TAKE 1 CAPSULE BY MOUTH EVERY 6 HOURS 07/11 completed Not Available Not Available Not Available penicillin V potassium 500 mg tablet 07/05 completed Not Available Not Available Not Available ciprofloxac in 500 mg tablet 01/23 completed Not Available Not Available Not Available sulfamethox azole 800 mg-trimetho prim 160 mg tablet 07/21 completed Not Available Not Available Not Available olanzapine 2.5 mg tablet active Not Available Not Available Not Available peg-electro lyte solution 420 gram oral solution TAKE DIRECTED BY OFFICE 08/27 completed Not Available Not Available Not Available omeprazole 40 mg capsule,del ayed release TAKE 1 CAPSULE BY MOUTH ONCE DAILY 10/27 completed Not Available Not Available Not Available aspirin 81 mg tablet,pamela yed release Take 1 tablet every day by oral route. active Not Available Not Available No t Available tramadol 50 mg tablet TAKE 1 TABLET BY MOUTH EVERY 4 HOURS NEEDED FOR PAIN FOR UP TO 10 DAYS 09/06 completed Not Available Not Available Not Available triamcinolo ne acetonide 0.1 % topical cream APPLY A THIN LAYER TO THE AFFECTED AREA(S) BY TOPICAL ROUTE 2 TIMES PER DAY 02/12 completed Not Available Not Available Not Available amoxicillin 500 mg tablet TAKE ONE TABLET EVERY 8 HOURS 07/11 completed Not Available Not Available Not Available isosorbide mononitrate ER 120 mg tablet,exte nded release 24 hr 04/09 completed Not Available Not Available Not Available ketorolac 10 mg tablet TAKE 1 TABLET BY MOUTH EVERY 6 HOURS NEEDED FOR PAIN 02/23 completed Not Available Not Available Not Available levothyroxi ne 75 mcg tablet TAKE 1 TABLET BY MOUTH EVERY DAY IN THE MORNING active Not Available Not Available No t Available ciclopirox 8 % topical solution APPLY TO THE AFFECTED AREA(S) BY TOPICAL ROUTE ONCE DAILY PREFERABL Y AT BEDTIME OR 8 HOURS BEFORE WASHING active Not Available Not Available No t Available levothyroxi ne 100 mcg tablet TAKE 1 TABLET BY MOUTH EVERY DAY IN THE MORNING 08/27 completed Not Available Not Available Not Available isosorbide mononitrate ER 60 mg tablet,exte nded release 24 hr Take 1 tablet every day by oral route in the morning. active Not Available Not Available No t Available levothyroxi ne 88 mcg tablet TAKE 1 TABLET BY MOUTH EVERY DAY IN THE MORNING 03/04 completed Not Available Not Available Not Available amoxicillin 875 mg tablet 04/20 completed Not Available Not Available Not Available ziprasidone 20 mg capsule TAKE 1 CAPSULE BY MOUTH EVERY MORNING AND 2 CAPSULES BY MOUTH EVERY NIGHT 02/28 completed Not Available Not Available Not Available Deep Sea Nasal 0.65 % spray aerosol Take 2 sprays 5 times a day by nasal route. active Not Available Not Available No t Available baclofen 10 mg tablet TAKE 1 TABLET BY MOUTH TWICE DAILY 02/12 completed Not Available Not Available Not Available morphine 30 mg immediate release tablet TK 1 T PO Q 4 H PRN P 11/25 completed Not Available Not Available Not Available pantoprazol e 40 mg tablet,pamela yed release Take 1 tablet every day by oral route in the morning. active Not Available Not Available No t Available cyanocobala min (vit B-12) 1,000 mcg/mL injection solution INJCET 1ML SUB-Q EVERY 4 WEEKS active Not Available Not Available No t Available oseltamivir 75 mg capsule Take 1 capsule twice a day by oral route for 5 days. 05/22 completed Not Available Not Available Not Available neomycin-po lymyxin-dex ameth 3.5 mg/mL-10,00 0 unit/mL-0.1 % eye drops SHAKE LIQUID AND INSTILL 1 DROP IN BOTH EYES FOUR TIMES DAILY FOR 1 WEEK THEN STOP 08/27 completed Not Available Not Available Not Available olopatadine 0.1 % eye drops INSTILL 1 DROP IN BOTH EYES TWICE DAILY 02/12 completed Not Available Not Available Not Available lansoprazol e 30 mg capsule,del ayed release active Not Available Not Available Not Available promethazin e 25 mg tablet TAKE 1/2 TABLET BY MOUTH EVERY 6 HOURS NEEDED 10/24 completed Not Available Not Available Not Available orphenadrin e citrate ER 100 mg tablet,exte nded release Take 1 tablet twice a day by oral route as needed. 03/28 completed Not Available Not Available Not Available Advair Diskus 500 mcg-50 mcg/dose powder for inhalation INHALE 1 PUFF BY MOUTH TWICE DAILY. RINSE MOUTH AFTER USE. DO NOT SWALLOW 08/27 completed Not Available Not Available Not Available nitroglycer in 0.[address] 1 TABLET UNDER THE TONGUE EVERY 5 MINUTES NEEDED FOR CHEST PAIN active Not Available Not Available No t Available sertraline 25 mg tablet TAKE 1 TABLET BY MOUTH EVERY DAY 04/17 completed Not Available Not Available Not Available montelukast 10 mg tablet TAKE 1 TABLET BY MOUTH EVERY DAY active Not Available Not Available No t Available midodrine 2.5 mg tablet TAKE 1 TABLET BY MOUTH EVERY MORNING AND EVERY EVENING active Not Available Not Available No t Available zolpidem 5 mg tablet TAKE 1 TABLET BY MOUTH AT BEDTIME active Not Available Not Available No t Available ziprasidone 40 mg capsule Take 1 capsule every day by oral route at bedtime. 05/13 completed Not Available Not Available Not Available alprazolam 2 mg tablet 03/21 completed Not Available Not Available Not Available mirtazapine 15 mg tablet active Not Available Not Available Not Available ergocalcife rol (vitamin D2) 1,250 mcg (50,000 unit) capsule TAKE 1 CAPSULE BY MOUTH EVERY 2 WEEKS active Not Available Not Available No t Available Nasonex 50 mcg/actuati on [place] 2 sprays every day by intranasa l route. 07/30 completed Not Available Not Available Not Available levofloxaci n 500 mg tablet TAKE 1 TABLET BY MOUTH ONCE DAILY FOR 7 DAYS 08/19 completed Not Available Not Available Not Available estradiol 0.01% (0.1 mg/gram) vaginal cream 07/27 completed Not Available Not Available Not Available zolpidem 10 mg tablet TAKE 1 TABLET BY MOUTH EVERY NIGHT AT BEDTIME NEEDED FOR INSOMNIA 02/28 completed Not Available Not Available Not Available scopolamine 1 mg over 3 days transdermal patch APPLY ONE PATCH ON THE SKIN ONCE FOR 1 DOSE 11/25 completed Not Available Not Available Not Available methylpredn isolone 4 mg tablets in a dose pack 07/05 completed Not Available Not Available Not Available albuterol sulfate HFA 90 mcg/actuati on aerosol inhaler INHALE 2 PUFFS BY MOUTH EVERY 8 HOURS NEEDED active Not Available Not Available No t Available cefdinir 300 mg capsule TAKE 1 CAPSULE BY MOUTH EVERY 12 HOURS 03/02 completed Not Available Not Available Not Available fluticasone propionate 50 mcg/actuati on nasal spray,suspe nsion [place] 1 spray every day by intranasa l route. active Not Available Not Available No t Available sertraline 50 mg tablet TAKE 1 TABLET BY MOUTH EVERY MORNING 10/24 completed Not Available Not Available Not Available doxycycline hyclate 100 mg tablet 01/31 completed Not Available Not Available Not Available dicyclomine 10 mg capsule TAKE ONE CAPSULE BY MOUTH FOUR TIMES DAILY NEEDED FOR ABDOMINAL PAIN 02/12 completed Not Available Not Available Not Available lamotrigine 100 mg tablet 100 mg by oral route. 03/21 completed Not Available Not Available Not Available ipratropium bromide 21 mcg (0.03 %) nasal spray USE 2 SPRAYS IN EACH NOSTRIL EVERY 6 HOURS active Not Available Not Available No t Available amoxicillin 875 mg-potassiu m clavulanate 125 mg tablet TAKE 1 TABLET BY MOUTH TWICE DAILY 07/24 completed Not Available Not Available Not Available Tylenol Extra Strength 500 mg tablet Take 1 tablet every 8 hours by oral route around the clock. 2021 active Not Available Not Available Not Avai lable ziprasidone 20 mg/mL (final concentrati on) intramuscul ar solution Inject every 4 weeks by intramusc ular route. 11/25 completed per pt 30 U Not Available Not Available Not Available escitalopra m 10 mg tablet 10 mg by oral route. 03/21 completed Not Available Not Available Not Available ezetimibe 10 mg tablet TAKE 1 TABLET BY MOUTH EVERY DAY active Not Available Not Available No t Available Premarin 0.625 mg/gram vaginal cream Insert 0.5 applicato rsful twice a week by vaginal route. 02/12 completed Not Available Not Available Not Available rosuvastati n 40 mg tablet TAKE 1 TABLET BY MOUTH EVERY DAY . STOP ATORVASTA TIN active Not Available Not Available No t Available topiramate 50 mg tablet TAKE 2 TABLETS BY MOUTH TWICE DAILY 02/12 completed Not Available Not Available Not Available mirtazapine 7.5 mg tablet 06/04 completed Not Available Not Available Not Available Mucinex DM 30 mg-600 mg tablet,exte nded release 12 hr Take 1 tablet every 12 hours by oral route. 02/09 completed Not Available Not Available Not Available BD Integra Syringe 3 mL 25 gauge x 5/8 active Not Available Not Available Not Available Boostrix Tdap 2.5 Lf unit-8 mcg-5 Lf/0.5 mL intramuscul ar suspension 03/21 completed Not Available Not Available Not Available pregabalin 50 mg capsule TAKE 1 CAPSULE BY MOUTH AT 8AM-NOON- 8PM active Not Available Not Available No t Available Advair HFA 230 mcg-21 mcg/actuati on aerosol inhaler INHALE 2 PUFFS BY MOUTH TWICE DAILY. RINSE MOUTH WITH WATER AFTER USE. DO NOT SWALLOW 07/11 completed Not Available Not Available Not Available Symbicort 160 mcg-4.5 mcg/actuati on HFA aerosol inhaler Inhale 2 puffs twice a day by inhalatio n route. 11/12 completed Not Available Not Available Not Available Mucinex DM 60 mg-1,200 mg tablet,exte nded release 12 hr Take 1 tablet twice a day by oral route. 04/20 completed Not Available Not Available Not Available Voltaren 1 % topical gel APPLY 2 GRAMS TO THE AFFECTED AREA(S) BY TOPICAL ROUTE 4 TIMES PER DAY 2019 active Not Available Not Available Not Avai lable Adacel (Tdap Adolesn/Juan lt)(PF)2 Lf-(2.5-5-3 -5)-5 Lf/0.5 mL IM syringe 01/31 completed Not Available Not Available Not Available Zyrtec 10 mg capsule Take 1 capsule every day by oral route. active Not Available Not Available No t Available Vitamin D3 125 mcg (5,000 unit) tablet Take 1 tablet every day by oral route. 11/10 completed Not Available Not Available Not Available Prolia 60 mg/mL subcutaneou s syringe 2024 active Not Available Not Available Not Avai lable cyanocobala min (vit B-12) 5,[address] 1 tablet every day by sublingua l route. 11/15 completed Not Available Not Available Not Available Stimulant Laxative Plus 8.6 mg-50 mg tablet Take 2 tablets every day by oral route. active Not Available Not Available No t Available Nasacort 55 mcg nasal spray aerosol [place] 2 sprays every day by intranasa l route. 05/13 completed Not Available Not Available Not Available Breo Ellipta 200 mcg-25 mcg/dose powder for inhalation 03/21 completed Not Available Not Available Not Available Aspercreme (lidocaine HCl) 4 % topical Apply 1 applicati on 3 times a day by topical route. 05/13 completed Not Available Not Available Not Available Shingrix (PF) 50 mcg/0.5 mL intramuscul ar suspension, kit 04/03 completed Not Available Not Available Not Available Fluzone High-Dose 2018- (PF) 180 mcg/0.5 mL intramuscul ar syringe PHARMACIS T ADMINISTE RED IMMUNIZAT ION ADMINISTE RED AT TIME OF DISPENSIN G 10/22 completed Not Available Not Available Not Available Caplyta 42 mg capsule TAKE 1 CAPSULE BY MOUTH AT BEDTIME 02/12 completed Not Available Not Available Not Available Fluzone High-Dose Quad 2019- (PF) 240 mcg/0.7 mL IM syringe PHARMACIS T ADMINISTE RED IMMUNIZAT ION ADMINISTE RED AT TIME OF DISPENSIN G 04/20 completed Not Available Not Available Not Available Paxlovid 300 mg (150 mg x 2)-100 mg tablets in a dose pack TK 2 NIRMATREL VIR TS AND 1 RITONAVIR T TOGETHER PO BID FOR 5 DAYS TWICE DAILY FOR 5 DAYS 01/26 completed Not Available Not Available Not Available Vitals Date Recorded Body height Provider Name an d Address Organization Details Last Updated DateTime 07/12/2023 157.48 cm Sehryl Brandan [facility] 07/12/2023 14:36:02 Date Recorded Heart rate Respiratory rate Body temperature Body mass index (BMI) Body weight Systolic blood pressure Diastolic blood pressure Provider Name and Address Organization Details Last Updated DateTime 4 71 /min 18 /min 97.5 [degF] 21.9 kg/m2 07154.0 8 g 122 mm[Hg] 67 mm[Hg] Nabil Tabarest [facility] 4 14:46:50 Date Recorded Body height Body mass index (BMI) Body weight Body temperature Respiratory rate Heart rate Systolic blood pressure Diastolic blood pressure Provider Name and Address Organization Details Last Updated DateTime 4 157.48 cm 21.4 kg/m2 36357.3 1 g 97.5 [degF] 18 /min 79 /min 103 mm[Hg] 58 mm[Hg] Sheryl Gipson [facility] 4 12:18:20 Date Recorded Body height Body temperature Respiratory rate Heart rate Body mass index (BMI) Body weight Systolic blood pressure Diastolic blood pressure Provider Name and Address Organization Details Last Updated DateTime 4 157.48 cm 97.4 [degF] 18 /min 65 /min 21 kg/m2 30212.1 2 g 137 mm[Hg] 63 mm[Hg] Sheryl Gipson [facility] 4 12:54:03 Date Recorded Body height Body mass index (BMI) Body weight Body temperature Heart rate Respiratory rate Systolic blood pressure Diastolic blood pressure Provider Name and Address Organization Details Last Updated DateTime 5 157.48 cm 20.5 kg/m2 58403.3 5 g 97.6 [degF] 80 /min 18 /min 107 mm[Hg] 62 mm[Hg] Sheryl Gipson [facility] 5 12:30:13 Date Recorded Body height Heart rate Respiratory rate Body temperature Body mass index (BMI) Body weight Systolic blood pressure Diastolic blood pressure Provider Name and Address Organization Details Last Updated DateTime 5 157.48 cm 83 /min 18 /min 98.7 [degF] 20.5 kg/m2 31678.3 5 g 108 mm[Hg] 63 mm[Hg] Sheryl Gipson [facility] 5 10:50:49 Social History Question Answer Notes LastModified by Organizat ion Details LastModified Time Tobacco Smoking Status Former Smoker CLAUDIA 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 Occasional [email or web address] Information not available 11/07/2016 What Is Your Level Of Caffeine Consumption? 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 No Information not available 08/21/2019 In The 14 Days Before Symptom Onset, Have You Had Close Contact With A Person Who Is Under Investigation For COVID-19 While That Person Was Ill? No Information not available 08/21/2019 Have You Been To An Area Known To Be High Risk For COVID-19? No Information not available 08/21/2019 Are You Currently Employed? No [email or web address] Information not available 11/07/2016 Have You Directly Handled Bats, Rodents, Or Primates From Ebola Endemic Areas? No Information not available 05/26/2020 Have You Processed Blood Or Body Fluids From An Ebola Virus Disease Patient Without Appropriate PPE? No Information not available 05/26/2020 Have You Had Household Contact With An Ebola Virus Disease Patient? No Information not available 05/26/2020 Have You Had Direct Contact With A Body In An Ebola-affected Area Without Appropriate PPE? No Information not available 05/26/2020 Have You Had Percutaneous (e.g. Needle Stick) Or Mucous Membrane Exposure To Blood Or Body Fluids From An Ebola Virus Disease Patient? No Information not available 05/26/2020 Have You Had Other Close Contact With An Ebola Virus Disease Patient In Health Care Facilities Or Community Settings? No Information not available 05/26/2020 Do You Reside In Or Have You Traveled To An Area Where Ebola Virus Transmission Is Active? No Information not available 05/26/2020 What Is Your Occupation? Retired [email or web address] Information not available 11/07/2016 Are There Any Guns Present In Your Home? No Information not available 05/26/2020 Hard Of Hearing Or Deaf In One Or Both Ears? No [email or web address] Information not available 11/07/2016 High Number Of Sexual Partners No Information not available 05/26/2020 History Of Inconsistent/no Condom Use No Information not available 05/26/2020 Legally Blind In One Or Both Eyes? No [email or web address] Information no t available 11/07/2016 Live Alone Or With Others? With Others Information not available 11/07/2016 Marital Status [email or web address] Informatio n not available 11/07/2016 What Was The Date Of Your Most Recent Tobacco Screening? 07/27/2018 Information not available 11/21/2018 Mother With HIV? No Informat ion not available 05/26/2020 Performs Monthly Self-breast Exam? Yes Information no t available 05/26/2020 Seat Belts Used Routinely Yes Information not available 05/26/2020 Sexual Partner Has HIV? No Information not available 05/26/2020 Sexual Partner Uses IV Drugs? No Information not available 05/26/2020 Smoke Alarm In Home Yes Information not available 05/26/2020 How Much Tobacco Do You Smoke? 1.5 PPD [email or web address] Information not available 11/07/2016 Do You Use Sunscreen Routinely? No Information not available 05/26/2020 How Many Years Have You Smoked Tobacco? 10 [email or web address] Information not available 11/07/2016 Have You Used IV Drugs? No Information not available 05/26/2020 Sex: Unknown Functional Status Question Answer Note LastModified by Organization D etails LastModified Time Are you able to care for yourself? Yes [email or web address] Information n ot available 11/07/2016 Mental Status None recorded. Family History Relationship Description Onset Age of this Age Resolved Age Notes LastModified by Organization Details LastModified Time Father Heart disease [email or web address] Not available 2016 11:13:06 Father Family history of malignant neoplasm [email or web address] Not available 2016 11:14:00 Brother Heart disease [email or web address] Not available 2016 11:13:06 Brother Family history of malignant neoplasm bjaycox Not available 2016 11:14:00 Mother Diabetes mellitus [email or web address] Not available 2016 11:13:23 Mother Family history of malignant neoplasm [email or web address] Not available 2016 11:14:00 Maternal Grandmother Family history of malignant neoplasm [email or web address] Not available 2016 11:14:00 Medical History No medical history recorded. Gynecological History Statement/Question Response Date of Last Mammogram 07/31/2017 Date of Last Colonoscopy 05/24/2017 Obstetrics History GPAL:G 0 P 0 0 0 0 Immunizations Vaccine Type Date Status Note Provider Nam e and Address Organization Details Recorded Time Influenza, split virus, trivalent, PF 6 completed Not Available [facility] 08/07/2022 15:45:03 Influenza, high-dose, trivalent, PF 8 completed Not Available [facility] 08/07/2022 15:45:03 Pneumococcal conjugate PCV 13 8 completed Not Available [facility] 08/07/2022 15:45:03 Tdap 9 completed Not Available [facility] 08/07/2022 15:45:03 zoster live 9 completed Not Available [facility] 08/07/2022 15:45:03 Influenza, split virus, trivalent, preservative 9 completed Not Available [facility] 08/07/2022 15:45:03 zoster recombinant 9 completed Not Available [facility] 08/07/2022 15:45:03 Influenza, split virus, quadrivalent, preservative 0 completed Not Available [facility] 08/07/2022 15:45:03 COVID-19, mRNA, LNP-S, PF, 100 mcg/0.5mL dose or 50 mcg/0.25mL dose 1 completed Not Available [facility] 08/07/2022 15:45:03 Influenza, split virus, quadrivalent, preservative 1 completed Not Available [facility] 08/07/2022 15:45:03 influenza, unspecified formulation 2 completed Not Available [facility] 08/07/2022 15:45:03 Influenza, high-dose, quadrivalent, PF 3 [facility] 12:08:40 Influenza, adjuvanted, trivalent, PF 4 completed Naila Gudino MD [address], [place], [address], [facility] 12/20/2023 19:03:42 influenza, unspecified formulation 4 completed Naila Gudino MD [address], [place], [address], [facility] 06/04/2024 11:12:38 Pneumococcal conjugate PCV 13 6 completed Not Available [facility] 08/07/2022 15:45:03 Influenza, split virus, quadrivalent, preservative 6 completed Not Available [facility] 08/07/2022 15:45:03 Influenza, high-dose, trivalent, PF 7 completed Not Available [facility] 08/07/2022 15:45:03 pneumococcal polysaccharide PPV23 7 completed Not Available [facility] 08/07/2022 15:45:03 Past Encounters Encounter ID Performer Location Encounter Start Date Encounter Closed Date Diagnosis/Indication Diagnosis SNOMED-CT Code Diagnosis ICD10 Code Diagnosis Note [id number] ZHANNA SANDOVAL APN [facility], [facility] [address] [place] [address] 11/07/2016 10:33:20 11/07/2016 12:22:55 Screening mammography 16419674 Z12.31 Screening for cancer 158 16505 Z12.9 history of hysterecto my Depression screening 171 761546 Z13.89 neg screening 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 Naiper Asthma 345389324 J45.90 9 Recent symptoms of shortness of breathatro vent 3x/weekfol lows an immunologi st Interstiti al lung disease 546141430 J84.[address] [place] [address] 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 Watson 2017Cardia c cath Hypothyroidism 06519770 E03.9 levothyrox ine Hyperlipidemia 41284428 E78.5 atorvastat in Loss of hair 187932125 L 65.9 and thinning nails Fatigue 23356667 R53.83 Diarrhea 66666607 R19.7 DIarrhea x 1 month.Imod ium daily - which has been helping.Ga stroentero logist cancelatio n list at [place] Active or passive immunization 292472103 Z23 Family his tory of diabetes mellitus 652190546 Z83.3 Candidiasis of vagina 72 094018 B37.3 Increased frequency of urination 100488331 R35.0 was treated with Bactrim from urgent care -- no reliefneed to obtain informatio n on UCrepeat UA with culture [id number] Naila Gudino MD [employer] [facility] [address] [place] [address] 03/21/2017 11:28:36 03/21/2017 13:17:23 Low back pain 548907749 M54.5 Menopause 104554108 Z78. 0 Benign hypertension 1072 5009 I10 Hyperlipidemia 54067433 E78.5 Screening mammography 24 478144 Z12.31 Screening for malignant neoplasm of cervix 701736708 Z12.4 Viral screening 27081131 4 Z11.59 [id number] Naila Gudino MD [employer] [facility] [address] [place] [address] 07/05/2017 10:01:10 07/05/2017 11:25:01 Acute urinary tract infection 843268909 N39.0 Low back pain 506823222 M54.5 Garrett's esophagus 3029 29613 K22.70 F/U with GI , will try to get EGD and C scope from [facility] Hyperlipidemia 51337587 E78.5 Hypothyroidism 74837877 E03.9 Screening procedure 20126 Z13.9 Screening mammography 24 376137 Z12.31 per pt had mammogram 01/2017 Screening for malignant neoplasm of cervix 196957228 Z12.4 per pt had [employer] SPECIALIST ex 01/2017 Obstructiv e sleep apnea syndrome 20794853 G47.33 [id number] Naila Gudino MD [employer] [address] [place] [address] 11/09/2017 16:12:31 11/09/2017 17:20:20 Garrett's esophagus 214444240 K22.70 F/U with GI , seen GI , increased omeprazole to 40 BID , had EGD and C scope Dx autoimmune gastritis Chronic cough 41864594 R 05 seen allergy and pulm @ [facility] Chronic ob structive pulmonary disease 31303945 J44.9 Coronary arteriosclerosis in [place] artery 9278022513 107 I25.10 by history , per pt sees cardiology Dr Vinson @ [place] every year Benign hypertension 1072 5009 I10 good Hypothyroidism 96121834 E03.9 last TSH 07/14/17 Hyperlipidemia 37599792 E78.5 last LDL 07/14/17 Vitamin D deficiency 347 66546 E55.9 Vitamin B1 2 deficiency (non anemic) 70386841 E53.8 Screening mammography 24 983819 Z12.31 per pt had mammogram 07/2017 Screening for malignant neoplasm of cervix 396145143 Z12.4 per pt had [employer] SUPPORT SPECIALIST ex 01/2017 Screening for malignant neoplasm of colon 332300577 Z12.11 last C scope 05/23/17 [id number] Naila Gudino MD [employer] [facility] [address] [place] [address] 02/28/2018 10:12:49 02/28/2018 11:26:51 Benign hypertension 25763617 I10 now it is low , decrease isosorbide , BP 1 week Dizziness 273694860 R42 Bunion 582046165 M21.61 9 Sinusitis 30613613 J32.9 use nasonex Impacted c erumen in right ear 3607900870 328625 H61.21 Screening mammography 24 229045 Z12.31 per pt had mammogram 07/2017 Screening for malignant neoplasm of cervix 184698718 Z12.4 per pt had [employer] SUPPORT SPECIALIST ex 01/2017 Screening for malignant neoplasm of colon 390802260 Z12.11 last C scope 05/23/17 Active or passive immunization 629015917 Z23 flu shot after done with [facility] Hypothyroidism 23556604 E03.9 last TSH 07/14/17 [id number] Naila Gudino MD [employer], [facility] [address] [place] [address] 04/09/2018 15:10:55 04/09/2018 16:54:43 Syncope 273456495 R55 work up inpt was -amy d seeing neurology @ [facility] 05/2018 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 , seen GI @ [facility] ,on high dose PPI and H2B Bipolar disorder 7065391 4 F31.9 Coronary arteriosclerosis in [place] artery 3069330271 107 I25.10 by history , per pt sees cardiology Dr Vinson @ [place] every year Garrett's esophagus 3029 38237 K22.70 F/U with GI , seen GI , increased omeprazole to 40 BID , had EGD and C scope Dx autoimmune gastritis Hypothyroidism 81025914 E03.9 last TSH 03/04/18 Benign hypertension 1072 5009 I10 now it is low , decrease isosorbide , BP 1 week Screening mammography 24 382944 Z12.31 per pt had mammogram 07/2017 Screening for malignant neoplasm of cervix 531570028 Z12.4 per pt had [employer]PPORT SPECIALIST ex 01/2017 Screening for malignant neoplasm of colon 471941454 Z12.11 last C scope 05/23/17 Active or passive immunization 505403656 Z23 per pt had flu shot @ WM [id number] Naila Gudino MD [employer] [address] [place] [address] 07/27/2018 11:13:45 07/27/2018 12:24:27 Adult health examination 076323721 Z00.01 Benign hypertension 1072 5009 I10 good control Hypogammaglobulinemia 11 8148848 D80.1 on IV every 30 days Asthma 922397481 J45.90 9 sees pulm every 6 months Vitamin B1 2 deficiency (non anemic) 66205008 E53.8 b12 shot today 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 , seen GI @ [facility] ,on high dose PPI and H2B Dyslipidemia 584598537 E 78.5 last LDL 03/2018 Vitamin D deficiency 347 47751 E55.9 Garrett's esophagus 3029 59022 K22.70 F/U with GI , seen GI , increased omeprazole to 40 BID , had EGD and C scope Dx autoimmune gastritis Coronary arteriosclerosis in [place] artery 3204405283 107 I25.10 by history , per pt sees cardiology Dr Vinson @ [place] every yearlast EKG 11/09/17 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 sees pulm every 6 months Bipolar disorder 7279110 4 F31.9 sees psych Nonspecifi c interstitial pneumonitis 272679407 J84.9 sees pulm every 6 months Screening mammography 24 212629 Z12.31 per pt had mammogram 07/2017 Screening for malignant neoplasm of cervix 621194227 Z12.4 per pt had [employer] SUPPORT SPECIALIST ex 01/2017 Sinusitis 33361516 J32.9 use nasonex Screening for malignant neoplasm of colon 660420325 Z12.11 last C scope 05/23/17 Active or passive immunization 410588700 Z23 per pt had flu shot @ [facility] Inflamed s eborrheic keratosis 732420954 L82.0 [id number] Naila Gudino MD [facility], [facility] [address] [place] [address] 11/26/2018 11:20:50 11/26/2018 12:34:28 Lesion of skin of face 5147268610 06 L98.9 derm F/U , seeing one tomorrow Benign hypertension 1072 5009 I10 good control Hypogammaglobulinemia 11 4155566 D80.1 on IV every 30 days Asthma 499219459 J45.90 9 sees pulm every 6 months Hyperlipidemia 39036424 E78.5 last LDL 03/01/18 Screening mammography 24 183977 Z12.31 per pt had mammogram 07/2017 Screening for malignant neoplasm of cervix 764671645 Z12.4 per pt had [employer] SPECIALIST ex 01/2017 Screening for malignant neoplasm of colon 357464373 Z12.11 last C scope 05/23/17 Active or passive immunization 670474072 Z23 per pt had flu shot @ [facility] Right lowe r quadrant pain 083481979 R10.31 H/O appendecto my and cholecyste ctomy Hypothyroidism 93935584 E03.9 last TSH 05/16/18 [id number] Naila Gudino MD [employer] [facility], [facility] [address] [place] [address] 01/31/2019 12:01:04 01/31/2019 13:50:21 Neoplasm of pancreas 324981668 D49.[address] abd 01/21/19 , recheck 12/2019 Tracheobronchomalacia 23 7465322 Q32.2 sees pulm every 6 months Coronary arteriosclerosis in [place] artery 2965616324 107 I25.10 by history , per pt sees cardiology Dr Vinson @ [place] every yearlast EKG 11/09/17 Garrett's esophagus 3029 56325 K22.70 F/U with GI , seen GI , increased omeprazole to 40 BID , had EGD and C scope Dx autoimmune gastritis Hypogammaglobulinemia 11 8407891 D80.1 on IV every 30 days Hypothyroidism 58184942 E03.9 last TSH 12/21/18 [id number] ZHANNA SANDOVAL APN [employer] [facility], [facility] [address] [place] [address] 04/03/2019 11:40:52 04/03/2019 12:17:42 Cough 63834433 R05 02 98%if symptoms do not improve or if they worsen call the office - Influenza- like symptoms 695481912 R68.89 Unintentio nal weight loss 704869909 R63.4 lost 8 pounds since 01/31/19no loss of appetite - [id number] Naila Gudino MD [employer] [facility], [facility] [address] [place] [address] 05/22/2019 11:46:28 05/22/2019 12:53:46 Solitary nodule of lung 234421134 R91.[address] 04/10/20 Idiopathic pulmonary fibrosis 524808252 J84.112 sees pulm @ [facility] every 6 months Benign hypertension 1072 5009 I10 good control Garrett's esophagus 3029 51392 K22.70 F/U with GI , seen GI , increased omeprazole to 40 BID , had EGD and C scope Dx autoimmune gastritis Coronary arteriosclerosis in [place] artery 0284720148 107 I25.10 by history , per pt sees cardiology Dr Vinson @ [place] every yearlast EKG 11/09/17 Hyperlipidemia 92008430 E78.5 last LDL 12/21/18 Hypogammaglobulinemia 11 8374577 D80.1 on IV every 30 days Mixed anxi ety and depressive disorder 012453905 F41.8 No HI , no SI Neoplasm of pancreas [address] abd 01/21/19 , recheck 12/2019 Vocal cord dysfunction 172447052 R49.9 just seen ENT 04/18/19 Screening mammography 24 901908 Z12.31 per pt had mammogram 01/22/19 Screening for malignant neoplasm of colon 519233638 Z12.11 last C scope 05/23/17 Active or passive immunization 240250735 Z23 per pt had flu shot @ up to date Osteoarthritis 336832903 M19.90 Vitamin B1 2 deficiency (non anemic) 76310119 E53.8 b12 shot today [id number] Naila Gudino MD [employer] [address] [place] [address] 08/21/2019 12:11:31 08/21/2019 12:42:12 Adult health examination 418083080 Z00.01 Benign hypertension 1072 5009 I10 good control Garrett's esophagus 3029 45015 K22.70 F/U with GI , seen GI , increased omeprazole to 40 BID , had EGD and C scope Dx autoimmune gastritis Atrophic gastritis 08336 007 K29.40 autoimmune , seen GI @ [facility] ,on high dose PPI and H2B Asthma 492030500 J45.90 9 sees pulm every 6 months Bipolar disorder 5085959 4 F31.9 sees psych Body mass index 20-24 - normal 808355064 Z68.23 education Coronary arteriosclerosis in [place] artery 3981775107 107 I25.10 by history , per pt sees cardiology Dr Vinson @ [place] every yearlast EKG 11/09/17 Fibrosis of lung 0617627 1 J84.10 sees pulm every 6 months Hyperlipidemia 94489503 E78.5 last LDL 12/21/18 Hypogammaglobulinemia 11 6312302 D80.1 on IV every 30 days Hypothyroidism 69838750 E03.9 last TSH 12/21/18 Mixed anxi ety and depressive disorder 967477715 F41.8 No HI , no SI Neuropathy 890586075 G62 .9 Nonspecifi c interstitial pneumonitis 940025523 J84.9 sees pulm every 6 months Obstructiv e sleep apnea syndrome 80682980 G47.33 good compliance Steatosis of liver 1007 K76.0 education Vitamin B1 2 deficiency (non anemic) 56143119 E53.8 b12 shot today Vitamin D deficiency 347 40483 E55.9 Vocal cord dysfunction 729061617 R49.9 just seen ENT 04/18/19 Solitary n odule of lung 056860573 R91.[address] 04/10/20 Idiopathic pulmonary fibrosis 585896392 J84.112 sees pulm @ [facility] every 6 months Neoplasm of pancreas [address] abd 01/21/19 , recheck 12/2019 Screening mammography 24 205477 Z12.31 per pt had mammogram 01/22/19 Screening for malignant neoplasm of colon 704235484 Z12.11 last C scope 05/23/17 Active or passive immunization 390989882 Z23 per pt had flu shot @ [facility] to date Osteoarthritis 632128006 M19.90 Paresthesi a of upper limb 78829485 R20.2 [id number] Naila Gudino MD [employer] [facility], [facility] [address] [place] [address] 10/23/2019 15:28:29 10/23/2019 16:43:11 Rib pain 408808795 R07.81 X ray -ve Accidental fall 52548135 2 W19.XXXA [id number] Naila Gudino MD [facility], [facility] [address] [place] [address] 11/13/2019 11:21:10 11/13/2019 12:18:51 Preoperative cardiovascular examination 971729236 Z01.810 clear for surghad stress test 02/12/19 Benign hypertension 1072 5009 I10 good control Asthma 906402255 J45.90 9 sees pulm every 6 months Hypothyroidism 72201494 E03.9 last TSH 08/21/19 [id number] Naila Gudino MD [facility], [facility] [address] [place] [address] 02/24/2020 15:40:50 02/24/2020 17:10:39 Benign hypertension 60114276 I10 good control Hyperlipidemia 68424030 E78.5 last LDL 12/21/18 Hypothyroidism 84705708 E03.9 last TSH 08/21/19 Vitamin B1 2 deficiency (non anemic) 08311862 E53.8 b12 shot today Vitamin D deficiency 347 78895 E55.9 Screening mammography 24 161168 Z12.31 per pt had mammogram 01/22/19 Screening for malignant neoplasm of cervix 000496613 Z12.4 per pt had [employer] SU[employer] SPECIALIST ex 01/2017 Rib pain 921469235 R07.8 1 X ray -ve Screening for malignant neoplasm of colon 631734692 Z12.11 last C scope 05/23/17 Active or passive immunization 629237618 Z23 per pt had flu shot @ [facility] to date [id number] Naila Gudino MD [employer] [address] [place] [address] 05/26/2020 15:05:45 05/26/2020 15:44:37 Benign hypertension 79399827 I10 good control Hyperlipidemia 48946696 E78.5 last LDL 05/25/20 @ Cardiology office was 75 Hypothyroidism 64724199 E03.9 last TSH 03/10/20 Mixed anxi ety and depressive disorder 429157352 F41.8 No HI , no SI Vitamin B1 2 deficiency (non anemic) 77670946 E53.8 last level 03/10/20 Vitamin D deficiency 347 76818 E55.9 last level 03/10/20 Bipolar disorder 1864434 4 F31.9 sees psych Asthma 047949254 J45.90 9 sees pulm every 6 months Screening for malignant neoplasm of colon 683659972 Z12.11 last C scope 05/23/17 Garrett's esophagus 3029 18363 K22.70 F/U with GI , Right uppe r quadrant pain 018814973 R10.11 toradol 1 ml now Obstructiv e sleep apnea syndrome 31032190 G47.33 good compliance Screening mammography 24 177876 Z12.31 per pt had mammogram 01/22/19 Screening for malignant neoplasm of cervix 553443552 Z12.4 per pt had [employer] SUPPORT SPECIALIST ex 01/2017 Immunization due 8537456 08 Z28.3 up to date Osteopenia 857499594 M85 .80 last DEXA 11/30/17 [id number] Naila Gudino MD [facility] [address] [place] [address] 08/25/2020 14:54:18 08/25/2020 15:40:17 Adult health examination 798932854 Z00.01 Asthma 653948490 J45.90 9 sees pulm every 6 months Atrophic gastritis 55722 007 K29.40 autoimmune , seen GI @ [facility] ,on high dose PPI and H2B Garrett's esophagus 3029 57846 K22.70 F/U with GI , Benign hypertension 1072 5009 I10 good control Bipolar disorder 2717722 4 F31.9 sees psych Body mass index 20-24 - normal 650153040 Z68.23 education Fibrosis of lung 8645314 1 J84.10 sees pulm every 6 months Gastroesop hageal reflux disease 199872312 K21.9 Hernia of anterior abdominal wall 282544268 K43.9 Hyperlipidemia 32634500 E78.5 last LDL 05/25/20 @ Cardiology office was 75 Hypogammaglobulinemia 11 8422338 D80.1 on IV every 30 days Hypothyroidism 36357270 E03.9 last TSH 03/10/20 Low blood pressure 43523 003 I95.9 Mixed anxi ety and depressive disorder 780861832 F41.8 No HI , no SI Neoplasm of pancreas [address] abd 01/21/19 , recheck 12/2019 Neuropathy 710692601 G62 .9 Nonspecifi c interstitial pneumonitis 843133456 J84.9 sees pulm every 6 months Obstructiv e sleep apnea syndrome 38802020 G47.33 good compliance Osteoarthritis 247691895 M19.90 Osteopenia 760201768 M85 .80 last DEXA 03/30/17 Steatosis of liver 62823 1007 K76.0 education Tracheobronchomalacia 23 0146115 Q32.2 sees pulm every 6 months Vitamin B1 2 deficiency (non anemic) 14472834 E53.8 last level 03/10/20 Vitamin D deficiency 347 91777 E55.9 last level 03/10/20 Vocal cord dysfunction 387687227 R49.9 just seen ENT 04/18/19 Pneumonia 729318714 J18. 9 on CXR 08/06/20 Screening mammography 24 825104 Z12.31 per pt had mammogram 01/22/19 Screening for malignant neoplasm of cervix 653801272 Z12.4 per pt had [employer] SUPPORT SPECIALIST ex 01/2017 Screening for malignant neoplasm of colon 662006699 Z12.11 last C scope 05/23/17 Active or passive immunization 392637486 Z23 per pt had flu shot @ [facility] up to date [id number] Naila Gudino MD [employer] [address] [place] [address] 11/25/2020 11:52:04 11/25/2020 13:03:26 Syncope 200663308 R55 work up inpt was -veresolve d Acute urin matty tract infection 802249963 N39.0 Transient cerebral ischemia 070797184 G45.9 resloved , will get Carotid US and ECHO result from hosp Benign hypertension 1072 5009 I10 good controldec rease isosorbid to 30 qd Vitamin B1 2 deficiency (non anemic) 27788397 E53.8 last level 03/10/20 Candidiasis of mouth 797 91552 B37.0 [id number] Naila Gudino MD [employer] [address] [place] [address] 12/29/2020 12:38:43 12/29/2020 13:44:54 Pain in right knee 2097349653 66779 M25.561 Garrett's esophagus 3029 37299 K22.70 F/U with GI , will try to get EGD report Benign hypertension 1072 5009 I10 good controlsto p isosorbide to 30 qdBP 2 weeks Bipolar disorder 5434897 4 F31.9 sees psych Vitamin B1 2 deficiency (non anemic) 62186863 E53.8 last level 03/10/20 Screening mammography 24 562321 Z12.31 per pt had mammogram 12/2019 Screening for malignant neoplasm of cervix 080225712 Z12.4 per pt had [employer] SUPPORT SPECIALIST ex 01/2017 Screening for malignant neoplasm of colon 809483122 Z12.11 last C scope 05/23/17 Active or passive immunization 219487793 Z23 per pt had flu shot @ [facility] up to date [id number] Naila Gudino MD [employer] [facility], [facility] [address] [place] [address] 02/01/2021 11:47:13 02/01/2021 12:35:57 Rib pain 929022686 R07.81 X ray -ve Osteoarthr itis of right knee joint 4826159302 61797 M17.11 tylenol 500 TID [id number] Naila Gudino MD [employer] [facility], [facility] [address] [place] [address] 03/31/2021 11:47:09 03/31/2021 12:57:42 Benign hypertension 19998818 I10 good controlBP 2 weeks Garrett's esophagus 3029 15744 K22.70 F/U with GI ,last EGD 01/2021 Asthma 518129385 J45.90 9 sees pulm every 6 months Body mass index 20-24 - normal 565482954 Z68.23 education Hyperlipidemia 51211505 E78.5 last LDL 09/24/20 Hypogammaglobulinemia 11 1258664 D80.1 on IV every 30 days Hypothyroidism 25534392 E03.9 last TSH 09/24/20 Mixed anxi ety and depressive disorder 225027347 F41.8 No HI , no SI Neuropathy 780402427 G62 .9 fair controllas t B12 12/30/20 Osteoarthritis 176805886 M19.90 Vitamin D deficiency 347 38155 E55.9 last level 03/10/20 Screening mammography 24 952715 Z12.31 per pt had mammogram 12/2019 Screening for malignant neoplasm of cervix 925780100 Z12.4 per pt had [employer] SUPPORT SPECIALIST ex 01/2017 Screening for malignant neoplasm of colon 785815210 Z12.11 last C scope 05/23/17 Active or passive immunization 670369945 Z23 per pt had flu shot up to date 20720502 Naila Gudino MD [employer] [facility], [facility] [address] [place] [address] 07/21/2021 13:43:29 07/21/2021 14:59:18 Low back pain 194685693 M54.50 Accidental fall 99041887 2 W19.XXXA education Asthma 172006581 J45.90 9 sees pulm every 6 months Garrett's esophagus 3029 45913 K22.70 F/U with GI ,last EGD 01/2021 Body mass index 20-24 - normal 922765011 Z68.23 education Gastroesop hageal reflux disease 684457979 K21.9 Hyperlipidemia 57569867 E78.5 last LDL 04/06/21 Localized eruption of skin 183812416 R21 Screening mammography 24 801247 Z12.31 per pt had mammogram 12/2019 Menopause 364735524 Z78. 0 Screening for malignant neoplasm of cervix 845056565 Z12.4 per pt had [employer]IST ex 06/2021 Congestion of nasal sinus 14649992 R09.81 [id number] Naila Guidno MD [employer] [address] [place] [address] 09/08/2021 10:41:52 09/08/2021 11:35:55 Adult health examination 053953938 Z00.01 Asthma 537802826 J45.90 9 sees pulm every 6 months Atrophic gastritis 33942 007 K29.40 autoimmune , seen GI @ [facility] ,on high dose PPI and H2B Garrett's esophagus 3029 69544 K22.70 F/U with GI ,last EGD 01/2021 Benign hypertension 1072 5009 I10 good controlBP 2 weekslast EKG 11/20/20 Bipolar disorder 0845737 4 F31.9 sees psych Body mass index 20-24 - normal 791153599 Z68.23 education Fibrosis of lung 3142386 1 J84.10 sees pulm every 6 months Gastroesop hageal reflux disease 187954649 K21.9 stable Hyperlipidemia 21505302 E78.5 last LDL 04/06/21 Hypothyroidism 94515498 E03.9 last TSH 04/06/21 Mixed anxi ety and depressive disorder 764232696 F41.8 No HI , no SI Neoplasm of pancreas [address] abd 01/21/19 , recheck 12/2019 Neuropathy 003046021 G62 .9 fair controllas t B12 12/30/20 Obstructiv e sleep apnea syndrome 12715415 G47.33 good compliance Osteoarthritis 274105361 M19.90 stable Osteopenia 124111400 M85 .80 order for DEXA 08/25/20 Vitamin B1 2 deficiency (non anemic) 74250145 E53.8 last level 12/30/20 Vitamin D deficiency 347 63117 E55.9 last level 04/06/21 Vocal cord dysfunction 061400338 R49.9 just seen ENT 04/18/19 Screening mammography 24 457953 Z12.31 per pt had mammogram 07/2021 Screening for malignant neoplasm of cervix 523967131 Z12.4 per pt had [employer] SU[employer] SPECIALIST ex 06/2021 Screening for malignant neoplasm of colon 314827440 Z12.11 last C scope 05/23/17 Active or passive immunization 617859126 Z23 per pt had flu shot up to date Advance di rective discussed with patient 256932707 Z71.89 education [id number] Naila Gudino MD [employer] [address] [place] [address] 01/04/2022 10:46:51 01/04/2022 12:12:02 Accidental fall 471284235 W19.XXXA education Pain of left forearm 033 1316086 79598 M79.632 bruising and painrechec k 1-2 weeks Asthma 340808960 J45.90 9 sees pulm every 6 months Benign hypertension 1072 5009 I10 good controlBP 2 weekslast EKG 12/06/21 Garrett's esophagus 3029 71653 K22.70 F/U with GI ,last EGD 01/2021 Body mass index 20-24 - normal 271734102 Z68.23 educationl ost 5 LBsensure QD Coronary arteriosclerosis 59761817 I25.10 last stress test 11/2021 Hyperlipidemia 56440714 E78.5 last LDL 04/06/21 Hypogammaglobulinemia 11 4689799 D80.1 on IV every 30 days Screening mammography 24 220364 Z12.31 per pt had mammogram 09/03/2021 Screening for malignant neoplasm of cervix 647905361 Z12.4 per pt had [employer] SPECIALIST ex 06/2021 Screening for malignant neoplasm of colon 032543134 Z12.11 last C scope 05/23/17 Active or passive immunization 017198753 Z23 per pt had flu shot up to date [id number] Naila Gudino MD [employer] [address] [place] [address] 04/06/2022 12:17:53 04/06/2022 13:13:27 Benign hypertension 03008041 I10 good controllas t ophth P 2 weekslast EKG 12/06/21 Gastroesop hageal reflux disease 913386760 K21.9 stable Hypothyroidism 61419280 E03.9 last TSH 03/16/22 was low , recheck 6 weeks Mixed anxi ety and depressive disorder 609011132 F41.8 No HI , no SI Mixed hyperlipidemia 267 050946 E78.2 last LDL 03/16/22 Vitamin B1 2 deficiency (non anemic) 25448640 E53.8 last level 12/30/20 Vitamin D deficiency 347 20398 E55.9 last level 04/06/21 Menopause 131070645 Z78. 0 Screening mammography 24 841776 Z12.31 per pt had mammogram 09/03/2021 Screening for malignant neoplasm of cervix 938137172 Z12.4 per pt had [employer] SPECIALIST ex 06/2021 Screening for malignant neoplasm of colon 832111491 Z12.11 last C scope 05/23/17 Active or passive immunization 284752139 Z23 per pt had flu shot up to date Acute sinusitis 41093904 J01.90 [id number] Naila Gudino MD [facility] [address] [place] [address] 10/10/2022 11:47:11 10/10/2022 13:28:48 Adult health examination 650724446 Z00.01 Benign hypertension 1072 5009 I10 good controllas t ophth P 2 weekslast EKG 12/06/21 Garrett's esophagus 3029 35541 K22.70 F/U with GI ,last EGD 01/2022 Asthma 603423349 J45.90 9 sees pulm every 6 months Bipolar disorder 2290137 4 F31.9 sees psych Body mass index 20-24 - normal 480641265 Z68.23 educatione nsure QD Coronary arteriosclerosis 09849895 I25.10 last stress test 11/2021 Fibrosis of lung 2149673 1 J84.10 sees pulm every 6 months Gastroesop hageal reflux disease 685603834 K21.9 stable Hernia of anterior abdominal wall 467107325 K43.9 education Hyperlipidemia 66319049 E78.5 last LDL 04/06/21 Hypogammaglobulinemia 11 7353728 D80.1 on IV every 30 days Hypothyroidism 95570376 E03.9 last TSH 03/16/22 was low , recheck 6 weeks Low blood pressure 15102 003 I95.9 education Menopause 533167809 Z78. 0 last DEXA 12/2021 Mixed anxi ety and depressive disorder 431626319 F41.8 No HI , no SI Mixed hyperlipidemia 267 493858 E78.2 last LDL 03/16/22 Neoplasm of pancreas [address] abd 01/21/19 , recheck Neuropathy 093219217 G62 .9 fair controllas t B12 12/30/20 Obstructiv e sleep apnea syndrome 25843568 G47.33 good compliance Osteoarthritis 832516930 M19.90 stable Osteoarthr itis of right knee joint 9047894422 04345 M17.11 tylenol 500 TID Osteopenia 700291485 M85 .80 order for DEXA 01/13/22 Steatosis of liver 94830 1007 K76.0 education Vitamin B1 2 deficiency (non anemic) 46063584 E53.8 last level 05/31/22 Vitamin D deficiency 347 53467 E55.9 last level 04/06/21 Vocal cord dysfunction 861299030 R49.9 just seen ENT 04/18/19 Tracheobronchomalacia 23 6150175 Q32.2 sees pulm every 6 months Nonspecifi c interstitial pneumonitis 941450153 J84.9 sees pulm every 6 months Screening mammography 24 656672 Z12.31 per pt had mammogram 09/03/2021 Screening for malignant neoplasm of cervix 423205260 Z12.4 per pt had [employer]PPORT SPECIALIST ex 06/2021 Screening for malignant neoplasm of colon 974810447 Z12.11 last C scope 05/23/17 Active or passive immunization 817819982 Z23 per pt had flu shot up to date Advance di rective discussed with patient 051740734 Z71.89 education Low back pain 106309331 M54.50 X ray -ve 06/2021 [id number] Naila Gudino MD [facility], [facility] [address] [place] [address] 11/08/2022 13:49:33 11/08/2022 14:25:37 Bronchitis 13539071 J40 O2 is 95% Hypogammaglobulinemia 11 0801663 D80.1 on IV every 30 days [id number] Naila Gudino MD [employer] [address] [place] [address] 01/09/2023 10:24:49 01/09/2023 11:41:07 Compression fracture of lumbar spine 694728898 M48.56XA L2 on CT abd 12/26/22 Compressio n fracture of thoracic vertebra 2049552910 [address] T spine 11/11/22 Osteopenia 550692780 M85 .80 order for DEXA 01/13/22 with compressio n fracture , will need prolia Benign hypertension 1072 5009 I10 good controllas t ophth P 2 weekslast EKG 12/06/21 Mixed hyperlipidemia 267 025548 E78.2 last LDL 03/16/22 Vitamin B1 2 deficiency (non anemic) 64242605 E53.8 last level 05/31/22 Vitamin D deficiency 347 88988 E55.9 last level 04/06/21 Neuropathy 506149398 G62 .9 fair controllas t B12 12/30/20 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 4908169804 [address] 12/26/22 , recheck 1 year Hypothyroidism 24493415 E03.9 last TSH 03/16/22 was low , recheck 6 weeks Coronary arteriosclerosis 27733566 I25.10 last stress test 11/2021 Screening mammography 24 108295 Z12.31 per pt had mammogram 09/03/2021 Screening for malignant neoplasm of cervix 135948322 Z12.4 per pt had [employer] SUPPORT SPECIALIST ex 06/2021 Screening for malignant neoplasm of colon 736866527 Z12.11 last C scope 05/23/17 Active or passive immunization 957846614 Z23 per pt had flu shot up to date Cyst of kidney 274079787 N28.1 on the Lt on CT abd 12/26/22 [id number] Naila Gudino MD [employer] [address] [place] [address] 02/09/2023 16:20:54 02/09/2023 17:25:04 Hospital inpatient stay within past 30 days 0123950207 106 Z76.89 went to ER 01/24/23 for encephalop athy , inpt till 01/27/23 Dx pneumonia , sepsis , better now , compliance with meds , F/U susy 04/10/23 Pneumonia 244840497 J18. 9 Chronic hypotension 7754 5000 I95.89 Sepsis 39558490 A41.9 resolved Interstiti al lung disease 177660197 J84.9 [id number] Naila Gudino MD [employer] [address] [place] [address] 05/10/2023 12:27:07 05/10/2023 14:12:04 Pneumonia 726877982 J18.9 History of SARS-CoV-2 29 19109920 17198368 Z86.16 05/07/23 Benign hypertension 1072 5009 I10 good controllas t ophth P 2 weekslast EKG 01/09/23 Asthma 715910394 J45.90 9 sees pulm every 6 months Hypothyroidism 26730953 E03.9 last TSH 03/06/23 was low , recheck 6 weeks Mixed hyperlipidemia 267 138514 E78.2 last LDL 03/06/23 Screening mammography 24 989636 Z12.31 per pt had mammogram 09/03/2021 Active or passive immunization 303742325 Z23 per pt had flu shot up to date [id number] Naila Gudino MD [employer], [facility] [address] [place] [address] 07/12/2023 14:25:05 07/12/2023 15:34:54 Benign hypertension 92892963 I10 good controllas t ophth 3BP 2 weekslast EKG 01/09/23 Asthma 909997250 J45.90 9 sees pulm every 6 months Garrett's esophagus 3029 44247 K22.70 F/U with GI ,last EGD 01/2022 Body mass index 20-24 - normal 042559819 Z68.23 educatione nsure QD Compressio n fracture of thoracic vertebra 3345972317 [address] T spine 11/11/22 Coronary arteriosclerosis 51326831 I25.10 last stress test 11/2021 Hyperlipidemia 91882815 E78.5 last LDL 04/06/21 Hypogammaglobulinemia 11 6451290 D80.1 on IV every 30 days Hypothyroidism 16939727 E03.9 last TSH 05/10/23 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 2963135201 [address] 12/26/22 , recheck 1 year Mixed hyperlipidemia 267 253352 E78.2 last LDL 03/06/23 Osteoporosis 28699977 M8 1.0 last DEXA 01/13/22 osteopenia with compressio n Fx Vitamin B1 2 deficiency (non anemic) 57875335 E53.8 last level 05/31/22 Screening mammography 24 464912 Z12.31 per pt had mammogram 08/2023 Screening for malignant neoplasm of cervix 815186487 Z12.4 per pt had [employer] SUPPORT SPECIALIST ex 06/2021 Screening for malignant neoplasm of colon 257724424 Z12.11 last C scope 05/23/17 Active or passive immunization 881259387 Z23 per pt had flu shot up to date [id number] Naila Gudino MD [employer] [address] [place] [address] 10/25/2023 11:14:44 10/25/2023 13:18:42 Adult health examination 196095725 Z00.01 Benign hypertension 1072 5009 I10 good controllas t ophth P 2 weekslast EKG 01/09/23 Pain in th oracic spine 580017173 M54.6 Asthma 952074203 J45.90 9 sees pulm every 6 months Garrett's esophagus 3029 22372 K22.70 F/U with GI ,last EGD 01/2022 Bipolar disorder 7750188 4 F31.9 sees psych Body mass index 20-24 - normal 510416127 Z68.23 educatione nsure QD Chronic hypotension 7754 5000 I95.89 Compressio n fracture of lumbar spine 548823202 M48.56XA L2 on CT abd 12/26/22 Coronary arteriosclerosis 41882492 I25.10 last stress test 11/2021 Fibrosis of lung 8008365 1 J84.10 sees pulm every 6 months Cyst of skin 164918931 L 72.9 face Cyst of kidney 953499088 N28.1 on the Lt on CT abd 12/26/22 Gastroesop hageal reflux disease 104457996 K21.9 stable Hernia of anterior abdominal wall 477057038 K43.9 education History of SARS-CoV-2 29 59799107 29830869 Z86.16 05/07/23 Hyperlipidemia 27376135 E78.5 last LDL 03/06/23 Hypogammaglobulinemia 11 6531698 D80.1 on IV every 30 days Hypothyroidism 79347242 E03.9 last TSH 05/10/23 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 0 last DEXA 12/2021 Mixed anxi ety and depressive disorder 919528011 F41.8 No HI , no SI Mixed hyperlipidemia 267 095743 E78.2 last LDL 03/06/23 Neoplasm of pancreas [address] abd 12/26/22 , recheck 1 year Neuropathy 950800324 G62 .9 fair controllas t B12 12/30/20 Nonspecifi c interstitial pneumonitis 239258012 J84.9 sees pulm every 6 months Obstructiv e sleep apnea syndrome 18443176 G47.33 good compliance Osteoarthritis 322068925 M19.90 stable Osteoporosis 07461112 M8 1.0 last DEXA 01/13/22 osteopenia with compressio n Fx Steatosis of liver 99466 1007 K76.0 education Tracheobronchomalacia 23 7582783 Q32.2 sees pulm every 6 months Vitamin B1 2 deficiency (non anemic) 60710908 E53.8 last level 05/31/22 Vitamin D deficiency 347 00875 E55.9 last level 03/06/23 Vocal cord dysfunction 194996684 R49.9 just seen ENT 04/18/19 Screening mammography 24 988797 Z12.31 per pt had mammogram 08/2023 Screening for malignant neoplasm of cervix 136644814 Z12.4 per pt had [employer] SPECIALIST ex 06/2021 Screening for malignant neoplasm of colon 512989791 Z12.11 last C scope 05/23/17 Active or passive immunization 539000377 Z23 per pt had flu shot up to date Advance di rective discussed with patient 354121495 Z71.89 education [id number] Naila Gudino MD [employer] [facility], [facility] [address] [place] [address] 02/13/2024 11:39:21 02/13/2024 13:30:05 Asthma 920253476 J45.909 sees pulm every 6 months Gastroesop hageal reflux disease without esophagitis 251727424 K21.9 Vitamin B1 2 deficiency (non anemic) 33545370 E53.8 last level 05/31/22 Garrett's esophagus 3029 61120 K22.70 F/U with GI ,last EGD 01/2022 Bipolar disorder 5402994 4 F31.9 sees psych Body mass index 20-24 - normal 223571952 Z68.23 educatione nsure QD Fibrosis of lung 3884024 1 J84.10 sees pulm every 6 months Hyperlipidemia 93613075 E78.5 last LDL 03/06/23 Active or passive immunization 058296036 Z23 per pt had flu shot up to date Dry eyes 810843860 H04.1 23 Long-term drug therapy 773252686 Z79.891 statin [id number] Naila Gudino MD [employer], [facility] [address] [place] [address] 05/13/2024 11:16:34 05/13/2024 13:13:44 Interstitial lung disease 741129292 J84.9 per pulm Benign hypertension 1072 5009 I10 good controllas t ophth P 2 weekslast EKG 01/09/23 Bipolar disorder 9835495 4 F31.9 sees psych Body mass index 20-24 - normal 169914914 Z68.23 educatione nsure QD Coronary arteriosclerosis 16891197 I25.10 last stress test 11/2021 Gastroesop hageal reflux disease without esophagitis 952500983 K21.9 stable Hypothyroidism 16316320 E03.9 last TSH 02/13/24 Long-term drug therapy 418755539 Z79.891 statin Mixed hyperlipidemia 267 246423 E78.2 last LDL 03/06/23 Osteoporosis 80518711 M8 1.0 last DEXA 01/13/22 osteopenia with compressio n Fx Screening mammography 24 615219 Z12.31 per pt had mammogram 06/01/2023 Screening for malignant neoplasm of cervix 187440101 Z12.4 per pt had [employer] SUPPORT SPECIALIST ex 06/2021 Screening for malignant neoplasm of colon 188289296 Z12.11 last C scope 05/23/17 Chronic constipation 236 949944 K59.09 [id number] Naila Gudino MD [employer] [facility], [facility] [address] [place] [address] 06/04/2024 10:44:41 06/04/2024 11:16:14 Liver enzymes level above reference range 625589802 R74.8 Onychomyco sis of toenails 346903676 B35.1 Active or passive immunization 628471065 Z23 per pt had flu shot up to datedeclin e RSV Health Concerns Section Related Observation LastModified by Organization Detai ls LastModified Time None Recorded Concern Status LastModified by Organization Details LastModified Time None Recorded Advance Directives Directive None Recorded Payers Encounter Date Sequence Insurance Name Policy Number Policy Cruz Covered Member ID Cruz Member ID Guarantor Name 07/12/2023 1 [place] Angelia L Mac Manus [id number] Angelia MacManus 07/12/2023 2 [employer] [place] [employer] F Angelia MacManus [id number] Angelia MacManus 10/25/2023 1 [place] Angelia L Mac Manus [id number] Angelia MacManus 10/25/2023 2 [employer] [place] [employer] F Angelia MacManus [id number] Angelia MacManus 02/13/2024 1 [place] Angelia L Mac Manus [id number] Angelia MacManus 02/13/2024 2 [employer] [place] [employer] F Angelia MacManus [id number] Angelia MacManus 05/13/2024 1 [place] Angelia L Mac Manus [id number] Angelia MacManus 05/13/2024 2 [employer] [place] [id number] Angelia [place] 06/04/2024 1 [place] Angelia Malone [id number] 17 Angelia Ca 06/04/2024 2 [employer] [place] [id number] Angelia aC Notes Date Note Type Note Provider Name and Address Organization Details Recorded Time 07/12/2023 text/html Hypertension F/UReported bypatient.Medications: taking medications as directed; no side effects from medication Lifestyle:regular exercise; limiting/avoiding salt; compliant with low salt diet Associated Symptoms:no dizziness; no lightheadedness; no chest pain; no shortness of breath; no palpitations; no edema; no calf pain with exertion; no headache pulm [place] Naila Gudino MD [address] [place] [address] [address], [place], [address], [facility] 07/12/2023 15:33:29 10/25/2023 text/html Hypertension F/UReported bypatient.Medications: taking medications as directed; no side effects from medication Lifestyle:regular exercise; limiting/avoiding salt; compliant with low salt diet Associated Symptoms:no dizziness; no lightheadedness; no chest pain; no shortness of breath; no palpitations; no edema; no calf pain with exertion; no headacheMedicare Annual Wellness VisitReported bypatient.Diet and Nutrition:healthy diet Fracture Risk:no history of fractures; no recent explained fracture; no sudden unexplained fractures; no previous musculoskeletal injuries Physical Activity:recent increase in physical activity; good physical condition; discussed exercise habits Depression Risk:never feels sad, empty, or tearful; no loss of interest in activities; no significant changes in weight; no sleep disturbances or insomnia; no agitation; no loss of energy; no feelings of worthlessness or guilt; no thoughts of suicide; no history of depression; no history of mood disorders Orientation:no disorientation to time; no disorientation to date; no disorientation to place Concentration and Memory:no decreased concentrating ability; no memory lapses or loss; does not forget words Speech/Motor difficulties:no speech difficulties; no difficulty expressing formulated concepts; no difficulty with fine manipulative tasks; no difficulty writing/copying; no slowed reaction time; does not knock things over when trying to pick them up Hearing:no loss of hearing Vision:no vision problems Activities of Daily Living:able to bathe with limited or no assistance; able to contol urination and bowels; able to dress with limited or no assistance; able to feed self with limited or no assistance; able to get out of chair or bed with limited or no assistance; able to groom with limited or no assistance; able to toilet with limited or no assistance Instrumental Activities of Daily Living:able to do house work with limited or no assistance; able to grocery shop with limited or no assistance; able to manage medications with limited or no assistance; able to manage money with limited or no assistance; able to prepare meals with limited or no assistance; able to use the phone with limited or no assistance Falls Risk Assessment:no frequent falls while walking; no fall in the past year; no fall since last visit; no dizziness/vertigo Home Safety:use of seatbelts; no vision or hearing loss while driving Naila Gudino MD [address] [facility] [address], [place], [address], [facility] 10/25/2023 13:00:08 02/13/2024 text/html Hypertension F/UReported bypatient.Medications: taking medications as directed; no side effects from medication Lifestyle:regular exercise; limiting/avoiding salt; compliant with low salt diet Associated Symptoms:no dizziness; no lightheadedness; no chest pain; no shortness of breath; no palpitations; no edema; no calf pain with exertion; no headache moving to [facility] , need paper work Naila Gudino MD [address] [facility] [address], [place], [address], [facility] 02/13/2024 13:23:04 05/13/2024 text/html Hypertension F/UReported bypatient.Medications: taking medications as directed; no side effects from medication Lifestyle:regular exercise; limiting/avoiding salt; compliant with low salt diet Associated Symptoms:no dizziness; no lightheadedness; no chest pain; no shortness of breath; no palpitations; no edema; no calf pain with exertion; no headache Naila Gudino MD [address] [facility] [address], [place], [address], [facility] 05/13/2024 13:06:26 06/04/2024 text/html Hypertension F/UReported bypatient.Medications: taking medications as directed; no side effects from medication Lifestyle:regular exercise; limiting/avoiding salt; compliant with low salt diet Associated Symptoms:no dizziness; no lightheadedness; no chest pain; no shortness of breath; no palpitations; no edema; no calf pain with exertion; no headache Naila Gudino MD [address] [facility] [address], [place], [address], [facility] 06/04/2024 11:14:42 OBGyn Episode No OBEpisode recorded.
--- OUTSIDE RECORDS SUMMARY | 2024-08-06 08:38 | XMS_ITS | Encounter Summary ---
Author Organization [facility] Address [address] [place] [address] Phone Care Team Providers Care Obstetrics Gyn Physician Name Role Phone Naila Marroquin MD Primary Care Provider [phone] Janine Bañuelos RN Unavailable UnaJohn Paul Sawant MD Unavailable [phone] Sindy Armstrong RN Unavailable Darlene vailable Reason for Referral * Procedure (Routine) - Closed Specialty Diagnoses / Procedures Referred By Jus lin Referred To Contact Diagnoses ILD (interstitial lung disease) (HCC) Procedures Pulmonary Function Test -[facility]; Spirometry, Oxygen Assessment Titration Lesli Richard MD [address] [place] [address] Phone: tel: fax: Referral ID Status Reason Start Date Expiration Date Visits Re quested Visits Authorized [id number] Closed 10/27/2023 11/25/2024 1 1 Reason for Visit * Procedure (Routine) - Closed Specialty Diagnoses / Procedures Referred By Jus lin Referred To Contact Diagnoses ILD (interstitial lung disease) (HCC) Procedures Pulmonary Function Test -[facility]; Spirometry, Oxygen Assessment Titration Lesli Richard MD [address] [place] [address] Phone: tel: fax: Referral ID Status Reason Start Date Expiration Date Visits Re quested Visits Authorized [id number] Closed 10/27/2023 11/25/2024 1 1 Encounter Details Date Type Department Care Team (Latest Contact Info) Description 10/31/2023 9:44 AM CDT Hospital Encounter [facility] [address] [facility] Office [address] [place] [address] ILD (interstitial lung disease) ([facility]) Social History Tobacco Use Types Packs/Day Years [...] often do you attend chur ch or orthodoxy services? 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 FVC %PRE PRED 53 % [facility] FEV1 PRE 1.[address] [facility] FEV1 %PRE PRED 57 % [facility] FEV1/FVC PRE 82.4 % [facility] Anatomical Region Laterality Modality PFT 10/31/2023 9:47 [...] and %HbO2 is age dependent. However, the [facility] defines hypoxemia as a PO2 <55 or a %HbO2 <89. Narrative 11/01/2023 8:16 PM CDT Table formatting from the original result was not included. [facility] Division of Pulmonary & Critical Care Medicine [address] [place] [address]; [place] [facility]; [place] [address]; [phone] Pulmonary Function Laboratory Pulmonary Stress Test Simple/Oxygen [...] Work [distance (m) x body wt (kg)]: 45838 kg.m (normal >60,000kg.m) Oxygen required to maintain [...] written final report. PFT performed at:->[facility] Adult PFT Lab- [facility] Procedure:->Spirometry Procedure:->Oxygen Assessment Titration [...] fibrosis documented in this encounter Care Teams Obstetrics Gyn Physician Relationship Specialty Start Date End Date Naila Marroquin MD [address] [place] [address] PCP - General 07/21/17 Janine Bañuelos, laborer pipeline Nurse 08/02/18 John Paul Springer MD Consulting Physician Orthopedic Surgery 12/05/19 Sindy Armstrong, ALEXANDRA Registered Nurse Pulmonary Disease 03/23/22 documented as of this encounter
--- OUTSIDE RECORDS SUMMARY | 2024-08-06 08:38 | XMS_ITS | Encounter Summary ---
Author Organization [facility] Address [address] [place] [address] Phone Care Team Providers Care Plant Electrician Name Role Phone Naila Marroquin MD Primary Care Provider [phone] Janine Bañuelos RN Unavailable Unavai John Paul David MD Unavailable [phone] Sindy Armstrong RN Unavailable Darlene vailable Encounter Details Date Type Department Care Team (Latest Contact Info) Description 04/03/2019 Orders Only [facility] Scanning, Provider Social History Tobacco Use Types Packs/Day Years Used Date Smoking Tobacco: Former Cigarettes Q uit: 1976 Smokeless Tobacco: Never Alcohol Use Standard Drinks/Week Comments Yes 0 (1 standard drink = 0.6 oz pure alcohol) glass of a wine a few times a week Comments No Sex and Gender Information Value Date Recorded Sex Assigned at Not on file Legal Sex Female 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 Gender Identity Female 09/24/2021 1:08 PM CDT Sexual Orientation Not on file Occupation Industry Job Start Date Job End Date Retired Not on file Not on file Not on file documented as of this encounter Plan of Treatment Not on file documented as of this encounter Procedures Procedure Name Priority Date/Time Associated Diagnosis Comments SCAN - RADIOLOGY/IMAGING 04/03/2019 documented in this encounter Results * SCAN - RADIOLOGY/IMAGING (04/03/2019) Anatomical Region Laterality Modality Other us Provider Scanning Final Result documented in this encounter Visit Diagnoses Not on filedocumented in this encounter Additional Health Concerns Infection Onset Date Last Indicated Resolved Time COVID: Suspected 05/28/2021 05/28/2021 05/28/2021 3:42 PM TECHNICAL DIRECTOR COVID: Suspected 01/24/2023 01/24/2023 01/24/2023 1:28 AM CDT COVID: Suspected 01/24/2023 01/25/2023 01/25/2023 11:46 AM CDT COVID19 Comment:COVID + on home test. Symptoms started 3 days ago. 05/06/2023 05/06/2023 05/16/2023 3:05 AM TECHNICAL DIRECTOR COVID: Recovered Comment:Added based on recent COVID infection. 05/16/2023 05/23/2023 08/14/2023 3:05 AM C DT documented as of this encounter Care Teams Plant Electrician Relationship Specialty Start Date End Date Naila Marroquin MD [address] [place] [address] PCP - General 07/21/17 Janine Bañuelos, production troubleshooter Nurse 08/02/18 John Paul Springer MD Consulting Physician Orthopedic Surgery 12/05/19 Sindy Armstrong, RN Registered Nurse Pulmonary Disease 03/23/22 documented as of this encounter
== END 2024-08-06 08:26 | disposition home or self-care (01) ==
PROVIDERS: Visit Provider Internal Medicine Pulmonary Disease
DX: J84.9 Interstitial pulmonary disease, unspecified (principal); S22.070A Wedge compression fracture of T9-T10 vertebra, initial encounter for closed fracture; X58.XXXA Exposure to other specified factors, initial encounter
CPT/HCPCS: 71250

== ENCOUNTER 2025-01-08 08:15 | Emergency (ER) | payer MEDICARE, OTHER, SELFPAY ==
--- OUTSIDE RECORDS SUMMARY | 2022-11-29 09:24 | XMS_ITS | Encounter Summary ---
Author Organization [facility] Address [address] [place] [address] Phone Care Team Providers Care Electric Motor Controls Assembler Name Role Phone Naila Marroquin MD Primary Care Provider [phone] Janine Bañuelos RN Unavailable UnaJohn Paul Sawant MD Unavailable [phone] Sindy Armstrong RN Unavailable Darlene vailable Reason for Referral * Procedure (Routine) - Closed Specialty Diagnoses / Procedures Referred By Jus lin Referred To Contact Diagnoses ILD (interstitial lung disease) (HCC) Procedures Pulmonary Function Test -[facility] Adult PFT Lab- [facility]; Spirometry, Oxygen Assessment Titration Lesli Richard MD [address] [place] [address] Phone: tel: fax: Referral ID Status Reason Start Date Expiration Date Visits Re quested Visits Authorized [id number] Closed 10/17/2022 11/16/2023 1 1 Reason for Visit * Procedure (Routine) - Closed Specialty Diagnoses / Procedures Referred By Jus lin Referred To Contact Diagnoses ILD (interstitial lung disease) (HCC) Procedures Pulmonary Function Test -[facility] Adult PFT Lab- [facility]; Spirometry, Oxygen Assessment Titration Lesli Richard MD [address] [facility] [address] [place] [address] Phone: tel: fax: Referral ID Status Reason Start Date Expiration Date Visits Re quested Visits Authorized [id number] Closed 10/17/2022 11/16/2023 1 1 Encounter Details Date Type Department Care Team (Latest Contact Info) Description 11/29/2022 9:24 AM CDT [facility] 10 [facility] [address] [place] [address] ILD (interstitial lung disease) ([facility]) Social History Tobacco Use Types Packs/Day Years [...] often do you attend chur ch or taoism services? Never 01/25/2023 Do you belong to any clubs o r organizations such as mormon groups, unions, fraternal or athletic groups, or [...] place to sleep or slept in a fci (including now)? No 01/25/2023 Personal Safety Answer Date Recorded Have you ever been in or are you currently in a harmful physical or emotional relationship or is someone making you feel afraid or unsafe? Denies 05/06/2023 Comments No Sex and Gender Information Value Date Recorded Sex Assigned at Not on file Legal Sex Female 8:29 PM HEALTHCARE ANALYST Gender Identity Female 09/24/2021 1:08 PM CDT Sexual Orientation Not on file Occupation Industry Job Start Date Job End Date Retired Not on file Not on file Not on file documented as of this encounter Functional Status * AUDIT-C Score Answer Date of Assessment Author 1 03/07/2023 1:29 PM Alphonse Lopez CMA * Question Answer Date of Assessment Author Q1: How often do you have a drink containing alcohol? 2-3 times a week 07/18/2023 9:51 AM ZAYDAT Zeinab Turner CMA Q2: How many drinks containing alcohol do you have on a typical day when you are drinking? Patient does not drink 03/26/2024 1:22 PM Jenni Corrales Q3: How often do you have six or more drinks on one occasion? Never 03/07/2023 1:29 PM Jackie Lopez CMA documented as of this encounter Plan of Treatment Not on file documented as of this encounter Procedures Procedure Name Priority Date/Time Associated Diagnosis Comments PULMONARY FUNCTION TEST (PFT) Routine 11/29/2022 10:00 AM CDT ILD (interstitial lung disease) (HCC) documented in this encounter Results * Pulmonary Function Test - (11/29/2022 10:00 AM CDT) FVC PRE 1.35 L [facility] FVC %PRE PRED 54 % [facility] FEV1 PRE 1.25 L [facility] FEV1 %PRE PRED 64 % [facility] FEV1/FVC PRE 92.6 % [facility] Anatomical Region Laterality Modality PFT 11/29/2022 9:27 AM CDT Narrative 12/04/2022 10:49 AM CDT Table formatting from the original result was not included. [facility] Division of Pulmonary & Critical Care Medicine [address] [place] [address]; [place] [address] [facility]; [place] [address]; [phone] Pulmonary Function Laboratory Pulmonary Stress Test Simple/Oxygen [...] Work [distance (m) x body wt (kg)]: 27744 kg.m (normal >60,000kg.m) Oxygen required to maintain [...] with the written final report. PFT performed at:->[facility]- [facility] Procedure:->Spirometry Procedure:->Oxygen Assessment Titration us Lesli Richard [...] days ago. 05/06/2023 05/06/2023 05/16/2023 3:05 AM HEALTHCARE ANALYST COVID: Recovered Comment:Added based on recent COVID infection. 05/16/2023 05/23/2023 08/14/2023 3:05 AM C DT documented as of this encounter Care Teams Electric Motor Controls Assembler Relationship Specialty Start Date End Date Naila Marroquin MD [address] [address] PCP - General 07/21/17 Janine Bañuelos, general dentist Nurse 08/02/18 John Paul Springer MD Consulting Physician Orthopedic Surgery 12/05/19 Sindy Armstrong, ALEXANDRA Registered Nurse Pulmonary Disease 03/23/22 documented as of this encounter
--- OUTSIDE RECORDS SUMMARY | 2022-11-29 09:24 | XMS_ITS | Encounter Summary ---
Author Organization [facility] Address [address] [place] [address] Phone Care Team Providers Care Airplane Patroller Name Role Phone Naila Marroquin MD Primary Care Provider [phone] Janine Bañuelos RN Unavailable UnaJohn Paul Sawant MD Unavailable [phone] Sindy Armstrong RN Unavailable Darlene vailable Reason for Referral * Procedure (Routine) - Closed Specialty Diagnoses / Procedures Referred By Jus lin Referred To Contact Diagnoses ILD (interstitial lung disease) (HCC) Procedures Pulmonary Function Test -[facility] Adult PFT [facility]- [facility]; Spirometry, Oxygen Assessment Titration Lesli Richard MD [address] [place] [address] Phone: tel: fax: Referral ID Status Reason Start Date Expiration Date Visits Re quested Visits Authorized [id number] Closed 10/17/2022 11/16/2023 1 1 Reason for Visit * Procedure (Routine) - Closed Specialty Diagnoses / Procedures Referred By Jus lin Referred To Contact Diagnoses ILD (interstitial lung disease) (HCC) Procedures Pulmonary Function Test -[facility] Adult PFT [facility]- [facility]; Spirometry, Oxygen Assessment Titration Lesli Richard MD [address] [facility] [address] [place] [address] Phone: tel: fax: Referral ID Status Reason Start Date Expiration Date Visits Re quested Visits Authorized [id number] Closed 10/17/2022 11/16/2023 1 1 Encounter Details Date Type Department Care Team (Latest Contact Info) Description 11/29/2022 9:24 AM CDT [facility] 10 [facility] [address] [place] [address] ILD (interstitial lung disease) ([facility]) Social History Tobacco Use Types Packs/Day Years [...] often do you attend chur ch or samaritan services? Never 01/25/2023 Do you belong to any clubs o r organizations such as buddhism groups, unions, fraternal or athletic groups, or [...] place to sleep or slept in a snf (including now)? No 01/25/2023 Personal Safety Answer Date Recorded Have you ever been in or are you currently in a harmful physical or emotional relationship or is someone making you feel afraid or unsafe? Denies 05/06/2023 Comments No Sex and Gender Information Value Date Recorded Sex Assigned at Not on file Legal Sex Female 8:29 PM PRODUCT PLANNER Gender Identity Female 09/24/2021 1:08 PM CDT [...] 10:00 AM CDT) FVC PRE 1.35 L [facility] FVC %PRE PRED 54 % [facility] FEV1 PRE 1.25 L [facility] FEV1 %PRE PRED 64 % [facility] FEV1/FVC PRE 92.6 % [facility] Anatomical Region Laterality Modality PFT 11/29/2022 9:27 AM CDT Narrative 12/04/2022 10:49 AM CDT Table formatting from the original result was not included. [facility] Division of Pulmonary & Critical Care Medicine [address] [place] [address]; [place] [address] [facility]; [place] [address]; [phone] Pulmonary Function Laboratory Pulmonary Stress Test Simple/Oxygen [...] Work [distance (m) x body wt (kg)]: 65009 kg.m (normal >60,000kg.m) Oxygen required to maintain [...] with the written final report. PFT performed at:->[employer] [facility] Adult PFT Lab- [facility] Procedure:->Spirometry Procedure:->Oxygen Assessment Titration us Lesli Richard [...] days ago. 05/06/2023 05/06/2023 05/16/2023 3:05 AM PRODUCT PLANNER COVID: Recovered Comment:Added based on recent COVID infection. 05/16/2023 05/23/2023 08/14/2023 3:05 AM C DT documented as of this encounter Care Teams Airplane Patroller Relationship Specialty Start Date End Date Naila Marroquin MD [address] [address] PCP - General 07/21/17 Janine Bañuelos, surgical dressing maker Nurse 08/02/18 John Paul Springer MD Consulting Physician Orthopedic Surgery 12/05/19 Sindy Armstrong, ALEXANDRA Registered Nurse Pulmonary Disease 03/23/22 documented as of this encounter
--- OUTSIDE RECORDS SUMMARY | 2023-03-21 10:42 | XMS_ITS | Encounter Summary ---
Author Organization [facility] School of [facility] Address [address] [place] [address] Phone Care Team Providers Care Mold Stamper And Repairer Name Role Phone Naial Marroquin MD Primary Care Provider [phone] Janine Bañuelos RN Unavailable UnavaJohn Paul Gillette MD Unavailable [phone] Sindy Armstrong RN Unavailable Darlene vailable Reason for Referral * Procedure (Routine) - Closed Specialty Diagnoses / Procedures Referred By Jus lin Referred To Contact Diagnoses ILD (interstitial lung disease) (HCC) Procedures Pulmonary Function Test -[facility] Adult PFT Lab- [facility]; Spirometry, Oxygen Assessment Titration Lesli Richard MD [address] [place] [address] Phone: tel: fax: Referral ID Status Reason Start Date Expiration Date Visits Re quested Visits Authorized [id number] Closed 11/29/2022 12/29/2023 1 1 EL ENGINE TESTER Reason for Visit * Procedure (Routine) - Closed Specialty Diagnoses / Procedures Referred By Jus t Referred To Contact Diagnoses ILD (interstitial lung disease) (HCC) Procedures Pulmonary Function Test -[facility] Adult PFT Lab- [facility]; Spirometry, Oxygen Assessment Titration Lesli Richard MD [address] [facility] [address] [place] [address] Phone: tel: fax: Referral ID Status Reason Start Date Expiration Date Visits Re quested Visits Authorized [id number] Closed 11/29/2022 12/29/2023 1 1 Encounter Details Date Type Department Care Team (Latest Contact Info) Description 03/21/2023 9:42 AM DIESEL ENGINE TESTER Hospital Encounter [facility] Medicine PFT Lab 10 [facility] Office [address] [place] [address] ILD (interstitial lung disease) ([facility]) Social History Tobacco Use Types [...] often do you attend chur ch or voodoo services? Never 01/25/2023 Do you belong to any clubs o r organizations such as episcopal groups, unions, fraternal or athletic groups, or [...] place to sleep or slept in a mcfp (including now)? No 01/25/2023 Personal Safety Answer Date Recorded Have you ever been in or are you currently in a harmful physical or emotional relationship or is someone making you feel afraid or unsafe? Denies 05/06/2023 Comments No Sex and Gender Information Value Date Recorded Sex Assigned at Not on file Legal Sex Female 8:29 PM DIESEL ENGINE TESTER Gender Identity Female 09/24/2021 1:08 PM CDT Sexual Orientation Not on file Occupation Industry Job Start Date Job End Date Retired Not on file Not on file Not on file documented as of this encounter Functional Status documented as of this encounter Plan of Treatment Not on file documented as of this encounter Procedures Procedure Name Priority Date/Time Associated Diagnosis Comments PULMONARY FUNCTION TEST (PFT) Routine 03/21/2023 10:53 AM DIESEL ENGINE TESTER ILD (interstitial lung disease) (HCC) documented in this encounter Results * Pulmonary Function Test - (03/21/2023 10:53 AM DIESEL ENGINE TESTER) FVC PRE 1.35 L [facility] FVC %PRE PRED 56 % [facility] FEV1 PRE 1.31 L [facility] FEV1 %PRE PRED 71 % [facility] FEV1/FVC PRE 96.9 % [facility] Anatomical Region Laterality Modality PFT 03/21/2023 9:59 AM DIESEL ENGINE TESTER Impressions 03/24/2023 3:13 PM DIESEL ENGINE TESTER There is a moderate restrictive ventilatory defect. [...] and %HbO2 is age dependent. However, the [facility] Pulmonary Function Laboratory defines hypoxemia as a PO2 <55 or a %HbO2 <89. Narrative 03/24/2023 3:13 PM DIESEL ENGINE TESTER Table formatting from the original result was not included. [facility] Division of Pulmonary & Critical Care Medicine [address] [place] [address]; [place] [address] [facility]; [place] [address]; [phone] Pulmonary Function Laboratory Pulmonary Stress Test Simple/Oxygen [...] Work [distance (m) x body wt (kg)]: 63230 kg.m (normal >60,000kg.m) Oxygen required to maintain [...] with the written final report. PFT performed at:->[facility] Adult PFT Lab- [facility] Procedure:->Spirometry Procedure:->Oxygen Assessment Titration Pulmonary Function Test [...] days ago. 05/06/2023 05/06/2023 05/16/2023 3:05 AM DIESEL ENGINE TESTER COVID: Recovered Comment:Added based on recent COVID infection. 05/16/2023 05/23/2023 08/14/2023 3:05 AM C DT documented as of this encounter Care Teams Mold Stamper And Repairer Relationship Specialty Start Date End Date Naila Marroquin MD [address] [facility] [address] [place] [address] PCP - General 07/21/17 Janine Bañuelos, oxide furnace tender Nurse 08/02/18 John Paul Springer MD Consulting Physician Orthopedic Surgery 12/05/19 Sindy Armstrong, ALEXANDRA Registered Nurse Pulmonary Disease 03/23/22 documented as of this encounter
--- OUTSIDE RECORDS SUMMARY | 2023-03-21 10:42 | XMS_ITS | Encounter Summary ---
Author Organization [facility] of [facility] Address [address] [place] [address] Phone Care Team Providers Care Oracle Fusion Consultant Name Role Phone Naila Marroquin MD Primary Care Provider [phone] Janine Bañuelos RN Unavailable UnavaJohn Paul Gillette MD Unavailable [phone] Sindy Armstrong RN Unavailable Darlene vailable Reason for Referral * Procedure (Routine) - Closed Specialty Diagnoses / Procedures Referred By Jus lin Referred To Contact Diagnoses ILD (interstitial lung disease) (HCC) Procedures Pulmonary Function Test -[facility] Adult PFT Lab- [facility]; Spirometry, Oxygen Assessment Titration Lesli Richard MD [address] [place] [address] Phone: tel: fax: Referral ID Status Reason Start Date Expiration Date Visits Re quested Visits Authorized [id number] Closed 11/29/2022 12/29/2023 1 1 ANCILLARY Reason for Visit * Procedure (Routine) - Closed Specialty Diagnoses / Procedures Referred By Jus t Referred To Contact Diagnoses ILD (interstitial lung disease) (HCC) Procedures Pulmonary Function Test -[facility] Adult PFT Lab- [facility]; Spirometry, Oxygen Assessment Titration Lesli Richard MD [address] [facility] [address] [place] [address] Phone: tel: fax: Referral ID Status Reason Start Date Expiration Date Visits Re quested Visits Authorized [id number] Closed 11/29/2022 12/29/2023 1 1 Encounter Details Date Type Department Care Team (Latest Contact Info) Description 03/21/2023 9:42 AM VP ANCILLARY Hospital Encounter [facility] Medicine PFT Lab 10 [facility] [address] [place] [address] ILD (interstitial lung disease) ([facility]) Social History Tobacco Use Types [...] often do you attend chur ch or yarsanism services? Never 01/25/2023 Do you belong to any clubs o r organizations such as worship groups, unions, fraternal or athletic groups, or [...] on file Legal Sex Female 8:29 PM VP ANCILLARY Gender Identity Female 09/24/2021 1:08 PM CDT [...] FUNCTION TEST (PFT) Routine 03/21/2023 10:53 AM VP ANCILLARY ILD (interstitial lung disease) (HCC) documented in this encounter Results * Pulmonary Function Test - (03/21/2023 10:53 AM VP ANCILLARY) FVC PRE 1.35 L [facility] FVC %PRE PRED 56 % [facility] FEV1 PRE 1.31 L [facility] FEV1 %PRE PRED 71 % [facility] FEV1/FVC PRE 96.9 % [facility] Anatomical Region Laterality Modality PFT 03/21/2023 9:59 AM VP ANCILLARY Impressions 03/24/2023 3:13 PM VP ANCILLARY There is a moderate restrictive ventilatory defect. [...] and %HbO2 is age dependent. However, the [facility] Pulmonary Function Laboratory defines hypoxemia as a PO2 <55 or a %HbO2 <89. Narrative 03/24/2023 3:13 PM VP ANCILLARY Table formatting from the original result was not included. [facility] Division of Pulmonary & Critical Care Medicine [address] [place] [address]; [address] [facility]; [place] [address]; [phone] Pulmonary Function Laboratory Pulmonary Stress Test Simple/Oxygen [...] Work [distance (m) x body wt (kg)]: 84231 kg.m (normal >60,000kg.m) Oxygen required to maintain [...] with the written final report. PFT performed at:->[facility] Adult PFT Lab- [facility] Procedure:->Spirometry Procedure:->Oxygen Assessment Titration Pulmonary Function Test [...] days ago. 05/06/2023 05/06/2023 05/16/2023 3:05 AM VP ANCILLARY COVID: Recovered Comment:Added based on recent COVID infection. 05/16/2023 05/23/2023 08/14/2023 3:05 AM C DT documented as of this encounter Care Teams Oracle Fusion Consultant Relationship Specialty Start Date End Date Naila Marroquin MD [address] [facility] [address] [place] [address] PCP - General 07/21/17 Janine Bañuelos, lab rn Nurse 08/02/18 John Paul Springer MD Consulting Physician Orthopedic Surgery 12/05/19 Sindy Armstrong, ALEXANDRA Registered Nurse Pulmonary Disease 03/23/22 documented as of this encounter
--- OUTSIDE RECORDS SUMMARY | 2023-07-18 09:06 | XMS_ITS | Encounter Summary ---
Author Organization [facility] Address [address] [place] [address] Phone Care Team Providers Care Scrub Technician Name Role Phone Naila Marroquin MD Primary Care Provider [phone] Janine Bañuelos RN Unavailable UnavaJohn Paul Gillette MD Unavailable [phone] Sindy Armstrong RN Unavailable Darlene vailable Reason for Referral * Procedure (Routine) - Closed Specialty Diagnoses / Procedures Referred By Contac t Referred To Contact Diagnoses ILD (interstitial lung disease) (HCC) Procedures Pulmonary Function Test -[facility] Adult PFT Lab- CAM-8D; Spirometry, Oxygen Assessment Titration Lesli Richard MD [address] [place] [address] Phone: tel: fax: Referral ID Status Reason Start Date Expiration Date Visits Re quested Visits Authorized [id number] Closed 03/21/2023 04/19/2024 1 1 Reason for Visit * Procedure (Routine) - Closed Specialty Diagnoses / Procedures Referred By Contac t Referred To Contact Diagnoses ILD (interstitial lung disease) (HCC) Procedures Pulmonary Function Test -[facility] Adult PFT Lab- CAM-8D; Spirometry, Oxygen Assessment Titration Lesli Richard MD [address] [place] [address] Phone: tel: fax: Referral ID Status Reason Start Date Expiration Date Visits Re quested Visits Authorized [id number] Closed 03/21/2023 04/19/2024 1 1 Encounter Details Date Type Department Care Team (Latest Contact Info) Description 07/18/2023 9:06 AM CDT [facility] 10 [facility] Office Building [address] [place] [address] ILD (interstitial lung disease) ([facility]) Social History Tobacco Use Types Packs/Day [...] often do you attend chur ch or mandaen services? Never 01/25/2023 Do you belong to any clubs o r organizations such as roman catholic groups, unions, fraternal or athletic groups, [...] place to sleep or slept in a nursing home (including now)? No 01/25/2023 Personal Safety Answer Date Recorded Have you ever been in or are you currently in a harmful physical or emotional relationship or is someone making you feel afraid or unsafe? Denies 05/06/2023 Comments No Sex and Gender Information Value Date Recorded Sex Assigned at Not on file Legal Sex Female 8:29 PM MORTGAGE LOAN OFFICER Gender Identity Female 09/24/2021 1:08 PM CDT [...] 9:43 AM CDT) FVC PRE 1.25 L [facility] FVC %PRE PRED 52 % [facility] FEV1 PRE 1.16 L [facility] FEV1 %PRE PRED 63 % [facility] FEV1/FVC PRE 92.6 % [facility] Anatomical Region Laterality Modality PFT 07/18/2023 [...] and %HbO2 is age dependent. However, the [facility] Pulmonary Function Laboratory defines hypoxemia as a PO2 <55 or a %HbO2 <89. Narrative 07/19/2023 8:01 PM CDT Table formatting from the original result was not included. [facility] Division of Pulmonary & Critical Care Medicine [address] [place] [address]; [facility]; [place] [address]; [phone] Pulmonary Function Laboratory Pulmonary Stress Test Simple/Oxygen [...] Work [distance (m) x body wt (kg)]: 14776 kg.m (normal >60,000kg.m) Oxygen required to maintain [...] with the written final report. PFT performed at:->[facility] Adult PFT Lab- CAM-8D Procedure:->Spirometry Procedure:->Oxygen Assessment [...] documented as of this encounter Care Teams Scrub Technician Relationship Specialty Start Date End Date Naila Marroquin MD [address] [facility] 100 [place] [address] PCP - General 07/21/17 Janine Bañuelos, blueprint tracer Nurse 08/02/18 John Paul Springer MD Consulting Physician Orthopedic Surgery 12/05/19 Sindy Armstrong, RN Registered Nurse Pulmonary Disease 03/23/22 documented as of this encounter
--- OUTSIDE RECORDS SUMMARY | 2023-07-18 09:06 | XMS_ITS | Encounter Summary ---
Author Organization [facility] Address [address] [place] [address] Phone Care Team Providers Care Assistant Superintendent For Curriculum Name Role Phone Naila Marroquin MD Primary Care Provider [phone] Janine Bañuelos RN Unavailable UnavaJohn Paul Gillette MD Unavailable [phone] Sindy Armstrong RN Unavailable Darlene vailable Reason for Referral * Procedure (Routine) - Closed Specialty Diagnoses / Procedures Referred By Contac t Referred To Contact Diagnoses ILD (interstitial lung disease) (HCC) Procedures Pulmonary Function Test -[facility] Adult PFT Lab- CAM-8D; Spirometry, Oxygen Assessment Titration Lesli Richard MD [address] [place] [address] Phone: tel: fax: Referral ID Status Reason Start Date Expiration Date Visits Re quested Visits Authorized [id number] Closed 03/21/2023 04/19/2024 1 1 Reason for Visit * Procedure (Routine) - Closed Specialty Diagnoses / Procedures Referred By Contac t Referred To Contact Diagnoses ILD (interstitial lung disease) (HCC) Procedures Pulmonary Function Test -[facility] Adult PFT Lab- CAM-8D; Spirometry, Oxygen Assessment Titration Lesli Richard MD [address] [place] [address] Phone: tel: fax: Referral ID Status Reason Start Date Expiration Date Visits Re quested Visits Authorized [id number] Closed 03/21/2023 04/19/2024 1 1 Encounter Details Date Type Department Care Team (Latest Contact Info) Description 07/18/2023 9:06 AM CDT [facility] [address] [facility] [address] [place] [address] ILD (interstitial lung disease) ([facility]) Social History Tobacco Use Types Packs/Day Years [...] often do you attend chur ch or latter-day services? 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 However, the [facility] Pulmonary Function Laboratory defines hypoxemia as a PO2 <55 or a %HbO2 <89. Narrative 07/19/2023 8:01 PM CDT Table formatting from the original result was not included. [facility] Division of Pulmonary & Critical Care Medicine [address] [place] [address]; [place] [address] [facility]; [place] [address]; [phone] Pulmonary Function Laboratory Pulmonary Stress Test Simple/Oxygen [...] Work [distance (m) x body wt (kg)]: 02771 kg.m (normal >60,000kg.m) Oxygen required to maintain [...] with the written final report. PFT performed at:->[facility] Adult PFT Lab- CAM-8D Procedure:->Spirometry [...] documented as of this encounter Care Teams Assistant Superintendent For Curriculum Relationship Specialty Start Date End Date Naila Marroquin MD [address] [facility] [address] [place] [address] PCP - General 07/21/17 Janine Bañuelos, rn social work Nurse 08/02/18 John Paul Springer MD Consulting Physician Orthopedic Surgery 12/05/19 Sindy Armstrong, RN Registered Nurse Pulmonary Disease 03/23/22 documented as of this encounter
--- OUTSIDE RECORDS SUMMARY | 2023-10-31 09:44 | XMS_ITS | Encounter Summary ---
Author Organization [facility] Address [address] [place] [address] Phone Care Team Providers Care Errand Runner Name Role Phone Naila Marroquin MD Primary Care Provider [phone]- [phone] Janine Bañuelos RN Unavailable UnaJohn Paul Sawant MD Unavailable [phone] Sindy Armstrong RN Unavailable Darlene vailable Reason for Referral * Procedure (Routine) - Closed Specialty Diagnoses / Procedures Referred By Jus lin Referred To Contact Diagnoses ILD (interstitial lung disease) (HCC) Procedures Pulmonary Function Test -[facility] Adult PFT Lab- [facility]; Spirometry, Oxygen Assessment Titration Lesli Richard MD [address] [place] [address] Phone: tel: fax: Referral ID Status Reason Start Date Expiration Date Visits Re quested Visits Authorized [id number] Closed 10/27/2023 11/25/2024 1 1 Reason for Visit * Procedure (Routine) - Closed Specialty Diagnoses / Procedures Referred By Jus lin Referred To Contact Diagnoses ILD (interstitial lung disease) (HCC) Procedures Pulmonary Function Test -[facility] Adult PFT Lab- [facility]; Spirometry, Oxygen Assessment Titration Lesli Richard MD [address] [place] [address] Phone: tel: fax: Referral ID Status Reason Start Date Expiration Date Visits Re quested Visits Authorized [id number] Closed 10/27/2023 11/25/2024 1 1 Encounter Details Date Type Department Care Team (Latest Contact Info) Description 10/31/2023 9:44 AM CDT [facility] 10 [facility] [address] [place] [address] ILD (interstitial lung disease) ([facility]) Social History Tobacco Use Types Packs/Day [...] often do you attend chur ch or sabianist services? 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 However, the [facility] Pulmonary Function Laboratory defines hypoxemia as a PO2 <55 or a %HbO2 <89. Narrative 11/01/2023 8:16 PM CDT Table formatting from the original result was not included. [facility] Division of Pulmonary & Critical Care Medicine [address] [place] [address]; [place] [address] [facility]; [place] [address]; [phone] Pulmonary Function Laboratory Pulmonary Stress Test Simple/Oxygen [...] Work [distance (m) x body wt (kg)]: 69949 kg.m (normal >60,000kg.m) Oxygen required to maintain [...] with the written final report. PFT performed at:->[facility] Adult PFT Lab- [facility] [...] fibrosis documented in this encounter Care Teams Errand Runner Relationship Specialty Start Date End Date Naila Marroquin MD [address] [address] PCP - General 07/21/17 Janine Bañuelos, phone technician Nurse 08/02/18 John Paul Springer MD Consulting Physician Orthopedic Surgery 12/05/19 Sindy Armstrong, ALEXANDRA Registered Nurse Pulmonary Disease 03/23/22 documented as of this encounter
--- OUTSIDE RECORDS SUMMARY | 2023-10-31 09:44 | XMS_ITS | Encounter Summary ---
Author Organization [facility] Address [address] [place] [address] Phone Care Team Providers Care Asparagus Buncher Name Role Phone Naila Marroquin MD Primary Care Provider [phone] Janine Bañuelos RN Unavailable UnaJohn Paul Sawant MD Unavailable [phone] Sindy Armstrong RN Unavailable Darlene vailable Reason for Referral * Procedure (Routine) - Closed Specialty Diagnoses / Procedures Referred By Jsu lin Referred To Contact Diagnoses ILD (interstitial lung disease) (HCC) Procedures Pulmonary Function Test -[facility] Adult PFT Lab- [facility]; Spirometry, Oxygen Assessment Titration Lesli Richard MD [address] [place] [address] Phone: tel: fax: Referral ID Status Reason Start Date Expiration Date Visits Re quested Visits Authorized [id number] Closed 10/27/2023 11/25/2024 1 1 Reason for Visit * Procedure (Routine) - Closed Specialty Diagnoses / Procedures Referred By Jus lin Referred To Contact Diagnoses ILD (interstitial lung disease) (HCC) Procedures Pulmonary Function Test -[facility] Adult PFT Lab- [facility]; Spirometry, Oxygen Assessment Titration Lesli Richard MD [address] [place] [address] Phone: tel: fax: Referral ID Status Reason Start Date Expiration Date Visits Re quested Visits Authorized [id number] Closed 10/27/2023 11/25/2024 1 1 Encounter Details Date Type Department Care Team (Latest Contact Info) Description 10/31/2023 9:44 AM CDT [facility] 10 [facility] [address] [place] [address] ILD (interstitial lung disease) ([facility] [...] often do you attend chur ch or jewish services? Never 01/25/2023 Do you belong to [...] place to sleep or slept in a penitentiary (including now)? No 01/25/2023 Personal Safety Answer Date Recorded Have you ever been in or are you currently in a harmful physical or emotional relationship or is someone making you feel afraid or unsafe? Denies 05/06/2023 Comments No Sex and Gender Information Value Date Recorded Sex Assigned at Not on file Legal Sex Female 8:29 PM MISSION SYSTEMS ENGINEER Gender Identity Female 09/24/2021 1:08 PM CDT [...] 10:14 AM CDT) FVC PRE 1.27 L [facility] FVC %PRE PRED 53 % [facility] FEV1 PRE 1.05 L [facility] FEV1 %PRE PRED 57 % [facility] FEV1/FVC PRE 82.4 % [facility] Anatomical Region Laterality Modality PFT 10/31/2023 9:47 [...] and %HbO2 is age dependent. However, the [facility] Pulmonary Function Laboratory defines hypoxemia as a PO2 <55 or a %HbO2 <89. Narrative 11/01/2023 8:16 PM CDT Table formatting from the original result was not included. [facility] Division of Pulmonary & Critical Care Medicine [address] [place] [address]; [place] [address] [facility]; [place] [address]; [phone] Pulmonary Function Laboratory Pulmonary Stress Test Simple/Oxygen [...] Work [distance (m) x body wt (kg)]: 41866 kg.m (normal >60,000kg.m) Oxygen required to maintain [...] with the written final report. PFT performed at:->[facility] Adult PFT Lab- [facility] Procedure:->Spirometry Procedure:->Oxygen Assessment Titration Pulmonary Function Test [...] fibrosis documented in this encounter Care Teams Asparagus Buncher Relationship Specialty Start Date End Date Naila Marroquin MD [address] [address] PCP - General 07/21/17 Janine Bañuelos, cook starch Nurse 08/02/18 John Paul Springer MD Consulting Physician Orthopedic Surgery 12/05/19 Sindy Armstrong, ALEXANDRA Registered Nurse Pulmonary Disease 03/23/22 documented as of this encounter
--- OUTSIDE RECORDS SUMMARY | 2025-01-07 12:30 | XMS_ITS | Encounter Summary ---
Author Organization [facility] Address [address] [place] [address] Phone Care Team Providers Care Sales And Customer Relations Rep Name Role Phone Naila Marroquin MD Primary Care Provider [phone] Janine Bañuelos RN Unavailable Unavai John Paul David MD Unavailable [phone] Sindy Armstrong RN Unavailable Darlene vailable Reason for Visit * Episode Based Medications (Routine) - Authorized Specialty Diagnoses / Procedures Referred By Contac t Referred To Contact Diagnoses Hypogammaglobulinemia Procedures [place] GAMUNEX-C/GAMMAKED Debora Fitch MD [address] [place] [address] Phone: tel: fax: [facility] [address] [place] [address] [address] [place] [address] Phone: tel: Referral ID Status Reason Start Date Expiration Date V isits Requested Visits Authorized [id number] Authorized 05/10/2019 04/30/2025 1 99 Encounter Details Date Type Department Care Team (Latest Contact Info) Description 01/07/2025 12:30 PM CDT Infusion [facility] [address] [place] [address] [address] [place] [address] Hypogammaglobulinemia (Primary Dx) Social History Tobacco Use Types Packs/Day Years [...] often do you attend chur ch or mormon services? 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 Gender Identity Female 09/24/2021 1:08 PM CDT Sexual Orientation Not on file Occupation Industry Job Start Date Job End Date Retired Not on file Not on file Not on file documented as of this encounter Last Filed Vital Signs Vital Sign Reading Time Taken Comments Blood Pressure 114/67 01/07/2025 2:25 PM CDT Pulse 71 01/07/2025 2:25 PM CDT Temperature 36.9 C (98.4 F) 01/07/2025 2:25 PM CDT Respiratory Rate - - Oxygen Saturation - - Inhaled Oxygen Concentration - - Weight - - Height - - Body Mass Index - - documented in this encounter Progress Notes * Sherice Hancock RN - 01/07/2025 12:30 PM CDT Pt here today for Gamunex infusion. Last IgG was 998, drawn on 06/25/24. Pt denies any recent feversor infections. VSS, PIV started, and IgG lab obtained. Infusion started at 1219 and pt instructed to ring rivera for any help or needs. Pt verbalized understanding. Infusion complete at 1425 and pt tolerated well. VSS, PIV removed, and pt discharged at baseline. documented in this encounter Plan of Treatment Not on file documented as of this encounter Results * IgG (01/07/2025 12:17 PM CDT) Immunoglobulin G 944 700 - 1,600 mg/dL Comment:Testing performed by : [facility], [address] [facility], [place]., [address] Blood 01/07/2025 12:1 7 PM CDT 01/07/2025 8:39 PM CDT [facility] Micheal Fitch MD LAB BLOOD ORDERABLES Final Res ult [facility] [address] [facility] Department [place] [address] documented in this encounter Visit Diagnoses Diagnosis Hypogammaglobulinemia- Primary Unspecified hypogammaglobulinemia documented in this encounter Administered Medications Inactive Administered Medications - up to 3 most recent administrations Medication Order MAR Action Action Date Dose Rate Site dextrose 5% infusion 50 mL/hr, intravenous, Continuous, Starting on Mon01/07/25 at 1245Indications:Hypogammaglo bulinemia New Bag 01/07/2025 12:18 PM CDT 50 mL/hr 50 mL/hr immune globulin (GAMUNEX-C,GAMMAKED) 10 % infusion 30 g 30 g, intravenous, Once, On Mon01/07/25 at 1315, For 1 dose, Infusion Rate: Start at 30ml/hr for 15 minutes; increase by 30ml/hr every 15 minutes to a maximum rate of 240ml/hr Patient takes own Zyrtec 10mg PO@ home as premed 2 hours before infusionIndications:Hypogamm aglobulinemia New Bag 01/07/2025 12:19 PM CDT 30 g predniSONE (DELTASONE) tablet 20 mg 20 mg, oral, Once, On e 01/07/25 at 1245, For 1 dose, Please give 30 minutes prior to IVIG.Indications:Hypogammagl obulinemia Given 01/07/2025 12:07 PM CDT 20 mg documented in this encounter Orders Medications Ordered That Luther ht Not Have Been Administered Count Last Ordered Date First Ordered Date sodium chloride 0.9% flush 10 mL 1 01/08/20 Nursing Count Last Ordered Date First Orde red Date VITAL SIGNS INTRA-INFUSION 1 01/07/2025 documented in this encounter Care Teams Sales And Customer Relations Rep Relationship Specialty Start Date End Date Naila Marroquin MD [address] [facility] [address] [place] [address] PCP - General 07/21/17 Janine Bañuelos, exchange clerk Nurse 08/02/18 John Paul Springer MD Consulting Physician Orthopedic Surgery 12/05/19 Sindy Armstrong, RN Registered Nurse Pulmonary Disease 03/23/22 documented as of this encounter
--- OUTSIDE RECORDS SUMMARY | 2025-01-07 12:30 | XMS_ITS | Encounter Summary ---
Author Organization [facility] Address [address] [place] [address] Phone Care Team Providers Care Svp Chief Marketing Officer Name Role Phone Naila Marroquin MD Primary Care Provider [phone]- [phone] Janine Bañuelos RN Unavailable Unavai John Paul David MD Unavailable [phone] Sindy Armstrong RN Unavailable Darlene vailable Reason for Visit * Episode Based Medications (Routine) - Authorized Specialty Diagnoses / Procedures Referred By Contac t Referred To Contact Diagnoses Hypogammaglobulinemia Procedures [place] GAMUNEX-C/GAMMAKED Debora Fitch MD [address] [place] [address] Phone: tel: fax: [facility] [address] [place] [address] [address] [place] [address] Phone: tel: Referral ID Status Reason Start Date Expiration Date V isits Requested Visits Authorized [id number] Authorized 05/10/2019 04/30/2025 1 99 Encounter Details Date Type Department Care Team (Latest Contact Info) Description 01/07/2025 12:30 PM CDT Infusion [facility] [address] [place] [address] [address] [place] [address] Hypogammaglobulinemia (Primary Dx) Social History [...] any clubs o r organizations such as christian groups, unions, fraternal or athletic groups, or [...] on file Legal Sex 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, [address] [facility], [place]., [address] Blood 01/07/2025 12:1 7 PM CDT 01/07/2025 8:39 PM CDT [facility] Micheal Fitch MD LAB BLOOD ORDERABLES Final Res ult [facility] [address] [facility] Department [place] [address] documented in this encounter Visit Diagnoses Diagnosis [...] 01/07/2025 documented in this encounter Care Teams Svp Chief Marketing Officer Relationship Specialty Start Date End Date Naila Marroquin MD [address] [facility] [address] [place] [address] PCP - General 07/21/17 Janine Bañuelos, clerk to justice Nurse 08/02/18 John Paul Springer MD Consulting Physician Orthopedic Surgery 12/05/19 Sindy Armstrong, RN Registered Nurse Pulmonary Disease 03/23/22 documented as of this encounter
--- OUTSIDE RECORDS SUMMARY | 2025-01-07 16:09 | XMS_ITS | Encounter Summary ---
Author Organization [facility] Address [address] [place] [address] Care Team Providers Care Heat Treat Inspector Name Role Phone Naila Marroquin MD Primary Care Provider [phone] Janine Bañuelos RN Unavailable Unavai John Paul David MD Unavailable [phone] Sindy Armstrong RN Unavailable Darlene vailable Encounter Details Date Type Department Care Team (Latest Contact Info) Description 01/07/2025 4:09 PM CDT - 01/07/2025 11:59 PM CDT Hospital Encounter [facility] [address] [place] [address] Hypogammaglobulinemia Discharge Disposition: Discharge to home or self care Social History Tobacco Use Types Packs/Day Years [...] How often do you attend chur or quaker services? 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 Gender Identity Female 09/24/2021 1:08 PM CDT Sexual Orientation Not on file Occupation Industry Job Start Date Job End Date Retired Not on file Not on file Not on file documented as of this encounter Medications at Time of Discharge acetaminophen (TYLENOL) 500 mg tablet Take 1 tablet (500 mg total) by mouth every 8 (eight) hours as needed for pain albuterol HFA (PROVENTIL HFA,VENTOLIN HFA,PROAIR HFA) 90 mcg/actuation inhaler Inhale 2 puffs every 6 (six) hours as needed for wheezing 1 each 5 05/04/2023 ALPRAZolam (XANAX) 1 mg tabletIndications:a nxiety Take 1 tablet (1 mg total) by mouth 4 (four) times a day as needed for anxiety 3 01/31/2018 aspirin 81 mg enteric coated tablet Take 1 tablet (81 mg total) by mouth daily BD Integra Syringe 3 mL 25 gauge x 5/8 syringe 03/04/2024 carboxymethylcellul ose-glycern 0.5-0.9 % drops Administer into affected eye(s) 3 (three) times a day cetirizine (ZyrTEC) 10 mg tabletIndications:A llergic Rhinitis Take 1 tablet (10 mg total) by mouth daily cyanocobalamin (Vitamin B-12) 1,000 mcg/mL injectionIndication s:Vitamin B12 Deficiency Inject 1 mL (1,000 mcg total) into the muscle as instructed every 30 (thirty) days q monthly denosumab (Prolia) 60 mg/mL syringe Every 6 months 01/18/2023 ergocalciferol (VITAMIN D) 50,000 unit capsule 03/10/2023 famotidine (PEPCID) 40 mg tablet Take 1 tablet (40 mg total) by mouth nightly immune glob,js caprylate,IgG, (GAMUNEX IV) Infuse into a venous catheter as directed Infusion every 28 days for autoimmune disease inhalational spacing device spacer 1 each as needed (with inhaler) 1 each 04/08/2022 ipratropium (ATROVENT) 21 mcg (0.03 %) nasal sprayIndications:No n-allergic rhinitis Administer 2 sprays into each nostril every 6 (six) hours 90 mL 3 12/14/2023 isosorbide mononitrate ER (IMDUR) 60 mg 24 hr tablet Take 1 tablet (60 mg total) by mouth daily 03/17/2024 levothyroxine (SYNTHROID) 75 mcg tablet Take 1 tablet (75 mcg total) by mouth every morning 03/10/2023 mirtazapine (REMERON MIGUEL-TAB) 15 mg disintegrating tablet Take 1 tablet (15 mg total) by mouth nightly montelukast (SINGULAIR) 10 mg tablet Take 1 tablet (10 mg total) by mouth nightly nitroglycerin (NITROSTAT) 0.[address] 1 tablet (0.4 mg total) under the tongue every 5 (five) minutes as needed for chest pain 25 tablet 06/20/[address] (PROTONIX) 40 mg EC tablet Take 1 tablet (40 mg total) by mouth daily polyethylene glycol (MIRALAX) 17 gram packetIndications:c onstipation Take 1 packet (17 g total) by mouth nightly pregabalin (LYRICA) 50 mg capsule Take 1 capsule (50 mg total) by mouth 2 (two) times a day QUEtiapine (SEROquel) 25 mg tablet daily 04/09/2024 rosuvastatin (CRESTOR) 40 mg tablet Take 1 tablet (40 mg total) by mouth daily 03/31/2021 sertraline (ZOLOFT) 50 mg tabletIndications:d epression Take 1 tablet (50 mg total) by mouth every morning 1 07/24/2018 topiramate (TOPAMAX) 50 mg tabletIndications:d epression Take 2 tablets (100 mg total) by mouth daily traZODone (DESYREL) 50 mg tablet Take 1 tablet (50 mg total) by mouth 3 (three) times a day 03/14/2024 triamcinolone (NASACORT) 55 mcg nasal inhaler Administer 2 sprays into each nostril daily ziprasidone (GEODON) 20 mg capsule Take 1 capsule (20 mg total) by mouth nightly ziprasidone (GEODON) 40 mg capsule Take 1 capsule (40 mg total) by mouth nightly 10/18/2023 zolpidem (AMBIEN) 10 mg tabletIndications:S leep-Onset Insomnia Take 1 tablet (10 mg total) by mouth nightly 02/17/2020 documented as of this encounter Discharge Disposition Disposition Code Departure Means Destination Discharge to home or self care documented in this encounter Plan of Treatment Not on file documented as of this encounter Procedures Procedure Name Priority Date/Time Associated Diagnosis Comments IGG Routine 01/07/2025 12:17 PM CDT Hypogammaglobulinemia documented in this encounter Results * IgG (01/07/2025 12:17 PM CDT) Immunoglobulin G 944 700 - 1,600 mg/dL Comment:Testing performed by : [facility], [facility] [facility], [place]., [address] Blood 01/07/2025 12:1 7 PM CDT 01/07/2025 8:39 PM CDT [facility] Micheal Ficth MD LAB BLOOD ORDERABLES Final Res ult Performing Organization Address City/State/[facility] Co mt Phone Number [facility] [address] [facility] Department of Laboratories [place], [place] [id number] documented in this encounter Visit Diagnoses Diagnosis Hypogammaglobulinemia Unspecified hypogammaglobulinemia documented in this encounter Care Teams Heat Treat Inspector Relationship Specialty Start Date End Date Naila Marroquin MD [address] [facility] [address] [place] [address] PCP - General 07/21/17 Janine Bañuelos, principal android developer Nurse 08/02/18 John Paul Springer MD Consulting Physician Orthopedic Surgery 12/05/19 Sindy Armstrong, ALEXANDRA Registered Nurse Pulmonary Disease 03/23/22 documented as of this encounter
--- OUTSIDE RECORDS SUMMARY | 2025-01-07 16:09 | XMS_ITS | Encounter Summary ---
Author Organization [facility] Address [address] [place] [address] Care Team Providers Care Frame Carver Spindle Name Role Phone Naila Marroquin MD Primary Care Provider [phone] Janine Bañuelos RN Unavailable Unavai John Paul David MD Unavailable [phone] Sindy Armstrong RN Unavailable Darlene vailable Encounter Details Date Type Department Care Team (Latest Contact Info) Description 01/07/2025 4:09 PM CDT - 01/07/2025 11:59 PM CDT Hospital Encounter [facility] [address] [place] [address] Hypogammaglobulinemia Discharge Disposition: Discharge to home or [...] How often do you attend chur or church services? 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 Gender Identity Female 09/24/2021 1:08 PM [...] - 1,600 mg/dL Comment:Testing performed by : [facility], [facility] [facility], [place]., [address] Blood 01/07/2025 12:1 7 PM CDT 01/07/2025 8:39 PM CDT [facility] Micheal Fitch MD LAB BLOOD ORDERABLES Final Res ult Performing Organization Address City/State/[facility] Co nd Phone Number [facility] [address] [facility] Department of Laboratories [place], [place] [id number] documented in this encounter Visit Diagnoses Diagnosis Hypogammaglobulinemia Unspecified hypogammaglobulinemia documented in this encounter Care Teams Frame Carver Spindle Relationship Specialty Start Date End Date Naila Marroquin MD [address] [facility] [address] [place] [address] PCP - General 07/21/17 Janine Bañuelos, director food safety Nurse 08/02/18 John Paul Springer MD Consulting Physician Orthopedic Surgery 12/05/19 Sindy Armstrong, ALEXANDRA Registered Nurse Pulmonary Disease 03/23/22 documented as of this encounter
--- NOTE | ~2025-01-08 | CT_ITS ---
Angelia Salcedo EXAMINATION: CT abdomen pelvis w con COMPARISON: None HISTORY: Abdominal pain TECHNIQUE: Axial images were obtained through the abdomen, pelvis post administration of IV contrast. Oral contrast was also administered. Coronal reconstruction images were obtained from the axial views. CT scan performed using dose optimization techniques including the following automated exposure control; adjustment of mA and/or kV; use of iterative reconstruction technique. Automatic exposure control was used to reduce radiation dose. Permanent radiation dose record is archived to PACS. 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 Mild cardiomegaly. LIVER: Mild hepatic steatosis. Portal vein patent. No intrahepatic biliary duct dilatation. SPLEEN: Unremarkable. KIDNEYS: Right Kidney: Right kidney subcentimeter renal cysts. Left Kidney: Left kidney subcentimeter renal cyst. ADRENAL GLANDS: Unremarkable. PANCREAS: Unremarkable. GALLBLADDER/BILIARY: Postcholecystectomy. STOMACH AND ESOPHAGUS: The stomach is decompressed. BOWEL/MESENTERY: Fluid-filled loops of large bowel, mild hyperemia noted of the large bowel, no perforation or abscess. No diverticulitis. Appendix not identified. Mesentery normal. No dilated small bowel loops. ADENOPATHY/RETROPERITONEUM: No lymphadenopathy. AORTA/VASCULATURE: Normal caliber aorta. FREE FLUID OR FREE AIR: No free fluid.. CT pelvis: SOLID ORGANS/REPRODUCTIVE: Post hysterectomy. No adnexal mass. BLADDER: Within normal limits. OSSEOUS STRUCTURES: No acute osseous abnormality.No suspicious lesions. OVERLYING SOFT TISSUES: Within the soft tissues there is a right-sided subcutaneous implant noted. IMPRESSION: Mild probable colitis. Reviewed, dictated and finalized at location A. IMPRESSION: Mild probable colitis.
--- OUTSIDE RECORDS SUMMARY | 2025-01-08 08:37 | XMS_ITS | Clinical Summary ---
Author Organization [facility] Address [address] [place] [address] Care Team Providers Care Straddle Bug Operator Name Role Phone Noel Gomez DO Primary Care Provider [phone] Source Comments [facility],non-owned Affiliates and Associated Physician Practices is amultiple site organization consisting of ambulatory clinics and hospital sitesin [place], [place], [place] and [place]. This disclosure is being madepursuant to the Care Everywhere program and may not contain all information available regarding this patient. Last updated 18.[facility] Allergies Active Allergy Reactions Criticality Noted Date Comments Codeine Nausea and/or Vomiting Low 05/31/2012 Nitrofurantoin Other Medium 05/31/2012 Difficulty breathing Medications * Be aware that medications may not be up to date on this document. Alwaysverify current medications with the patient. rosuvastatin (CRESTOR) 40 MG tablet Take 40 [...] 10 mg by mouth at bedtime. Active budesonide-formo terol (SYMBICORT) 160-4.5 MCG/ACT inhaler Inhale 2 Puffs by mouth 2 times daily. Active omeprazole (PRILOSEC) 20 MG capsule Take 20 mg by mouth daily before breakfast. Active albuterol HFA (PROVENTIL;ETHAN AI;PROAIR) 108 mcg/ACT inhaler Inhale 2 Puffs by mouth every 6 hours as needed. Active hydrocodone-acet aminophen (VICODIN) 5-500 MG tablet Take 1 Tab [...] = 0.6 oz pur e alcohol) Comments No Sex and Gender Information Value Date Recorded Sex Assigned at Not on file Legal Sex Female 6:15 AM SOCIAL MEDIA EXECUTIVE Gender Identity Not on file Sexual Orientation Not on file Last Filed Vital Signs Vital Sign Reading Time Taken Comments Blood Pressure 124/70 06/12/2013 1:29 PM SOCIAL MEDIA EXECUTIVE Pulse 86 07/03/2012 4:20 PM SOCIAL MEDIA EXECUTIVE Temperature 36.6 C (97.8 F) 07/03/2012 4:20 PM SOCIAL MEDIA EXECUTIVE Respiratory Rate 18 07/03/2012 4:20 PM SOCIAL MEDIA EXECUTIVE Oxygen Saturation 99% 07/03/2012 4:20 PM SOCIAL MEDIA EXECUTIVE Inhaled Oxygen Concentration - - Weight 60.8 kg (134 lb) 06/12/2013 1:29 PM SOCIAL MEDIA EXECUTIVE Height 157.5 cm (5' 2) 06/12/2013 1:29 PM SOCIAL MEDIA EXECUTIVE Body Mass Index 24.51 06/12/2013 1:29 PM SOCIAL MEDIA EXECUTIVE Plan of Treatment Health Maintenance Due Date Last Done Comments BONE DENSITY TESTING 1945 HEPATITIS C SCREENING 12/31/1964 DTAP/TDAP/TD VACCINES (1 - Tdap) 1966 PNEUMOCOCCAL VACCINE 50+ (1 of 1 - PCV) 1997 ZOSTER VACCINE (1 of 2) 1997 Respiratory Syncytial Virus (RSV) Vaccine Pt: or over 60 yrs (1 - 1-dose 75+ series) 2022 DEPRESSION SCREENING 05/01/2024 COVID-19 VACCINE (2 - 2024- season) 2024 07/06/2020 INFLUENZA VACCINE (#1) 2024 , 02/25/2020, 03/13/2019, Additional history exists HEPATITIS B [...] this topic Medical Devices Implanted Type Area Direct Service Professional Device Identifier Shelf Expiration Date Model / Serial / Lot Slng Lynx Mid-Ureth Implanted:Qty: 1 on 07/03/2012 by Erika Hernández MD at [facility] N/A: [employer] [place] [facility] 03/31/2015 [id number] / / [id number] Insurance MEDICARE [facility] MEDICARE [facility] Care Teams Straddle Bug Operator Relationship Specialty Start Date End Date Noel Gomez DO PCP - General Internal Medicine 07/03/12
--- OUTSIDE RECORDS SUMMARY | 2025-01-08 08:37 | XMS_ITS | Encounter Summary ---
Author Organization [facility] Address [address] [address] Care Team Providers Care Assault Amphibious Vehicle Officer Name Role Phone Debora Fitch MD Primary Care Provider Miscellaneous, Not In File Primary Care Provider Unavailable Debora Fitch MD Primary Care Provider Naila Marroquin MD Primary Care Provider [phone] Debora Fitch MD Primary Care Provider Naila Marroquin MD Primary Care Provider Debora Fitch MD Primary Care Provider Naila Marroquin MD Primary Care Provider Debora Fitch MD Primary Care Provider [phone] Naila Marroquin MD Primary Care Provider Debora Fitch MD Primary Care Provider Naila Marroquin MD Primary Care Provider Debora Fitch MD Primary Care Provider Naila Marroquin MD Primary Care Provider Debora Fitch MD Primary Care Provider Naila Marroquin MD Primary Care Provider [phone] Debora Fitch MD Primary Care Provider Naila Marroquin MD Primary Care Provider [phone] Janine Bañuelos RN Unavailable UnaJohn Paul Sawant MD Unavailable [phone] Sindy Armstrong RN Unavailable Darlene vailable Encounter Details Date Type Department Care Team (Late st Contact Info) Description 06/03/2016 Orders Only [facility] Provider, MD Sherif [address] [place] [address] Social History Tobacco Use Types Packs/Day Years Used Date Smoking Tobacco: Former Cigarettes Q uit: 05/01/1974 Alcohol Use Standard Drinks/Week Comments Yes 0 (1 standard drink = 0.6 oz pur e alcohol) Comments Unknown Sex and Gender Information Value Date Recorded Sex Assigned at Not on file Legal Sex Female 8:29 PM INSTRUMENTATION AND CONTROLS TECHNICIAN Gender Identity Female 09/24/2021 1:08 PM [...] COVID: Suspected 05/28/2021 05/28/2021 05/28/2021 3:42 PM INSTRUMENTATION AND CONTROLS TECHNICIAN COVID: Suspected 01/24/2023 01/24/2023 01/24/2023 1:28 AM CDT COVID: Suspected 01/24/2023 01/25/2023 01/25/2023 11:46 AM CDT COVID19 Comment:COVID + on home test. Symptoms started 3 days ago. 05/06/2023 05/06/2023 05/16/2023 3:05 AM INSTRUMENTATION AND CONTROLS TECHNICIAN COVID: Recovered Comment:Added based on recent COVID infection. 05/16/2023 05/23/2023 08/14/2023 3:05 AM C DT documented as of this encounter Care Teams Assault Amphibious Vehicle Officer Relationship Specialty Start Date End Date Debora Fitch MD [address] [address] PCP - General 08/19/16 11/03/16 Miscellaneous, Not In File PCP - General 11/04/16 11/07/16 Debora Fitch MD [address] [address] PCP - General 11/08/16 11/17/16 Naila Marroquin MD [address] [place] [address] PCP - General 11/18/16 11/21/16 Debora Fitch MD [address] [address] PCP - General 11/22/16 11/22/16 Naila Marroquin MD [address] [place] [address] PCP - General 11/23/16 11/26/16 Debora Fitch MD [address] [address] PCP - General 11/27/16 01/03/17 Naila Marroquin MD [address] [place] [address] PCP - General 01/04/17 01/26/17 Debora Fitch MD [address] [facility] [place] [address] PCP - General 01/27/17 02/06/17 Naila Marroquin MD [address] [place] [address] PCP - General 02/07/17 02/13/17 Debora Fitch MD [address] [facility] [address] [address] PCP - General 02/14/17 04/04/17 Naila Marroquin MD [address] [place] [address] PCP - General 04/05/17 04/05/17 Debora Fitch MD [address] [facility] [address] [address] PCP - General 04/06/17 05/18/17 Naila Marroquin MD [address] [place] [address] PCP - General 05/19/17 06/11/17 Debora Fitch MD [address] [address] PCP - General 06/12/17 06/14/17 Naila Marroquin MD [address] [place] [address] PCP - General 06/15/17 07/12/17 Debora Fitch MD [address] [facility] [address] [place] [address] PCP - General 07/13/17 07/20/17 Naila Marroquin MD [address] [place] [address] PCP - General 07/21/17 Janine Bañuelos, home health clinical liaison Nurse 08/02/18 John Paul Springer MD Consulting Physician Orthopedic Surgery 12/05/19 Sindy Armstrong, ALEXANDRA Registered Nurse Pulmonary Disease 03/23/22 documented as of this encounter
--- OUTSIDE RECORDS SUMMARY | 2025-01-08 08:38 | XMS_ITS | Encounter Summary ---
Author Organization [facility] Address [address] [place] [address] Phone Care Team Providers Care Tar Worker Name Role Phone Naila Marroquin MD Primary Care Provider [phone] Janine Bañuelos RN Unavailable Unavai John Paul David MD Unavailable [phone] Sindy Armstrong RN Unavailable Darlene vailable Encounter [...] on file Legal Sex Female 8:29 PM LIQUEFIER Gender Identity Female 09/24/2021 1:08 PM CDT [...] COVID: Suspected 05/28/2021 05/28/2021 05/28/2021 3:42 PM LIQUEFIER COVID: Suspected 01/24/2023 01/24/2023 01/24/2023 1:28 AM CDT COVID: Suspected 01/24/2023 01/25/2023 01/25/2023 11:46 AM CDT COVID19 Comment:COVID + on home test. Symptoms started 3 days ago. 05/06/2023 05/06/2023 05/16/2023 3:05 AM LIQUEFIER COVID: Recovered Comment:Added based on recent COVID infection. 05/16/2023 05/23/2023 08/14/2023 3:05 AM C DT documented as of this encounter Care Teams Tar Worker Relationship Specialty Start Date End Date Naila Marroquin MD [address] [place] [address] PCP - General 07/21/17 Janine Bañuelos, reed man Nurse 08/02/18 John Paul Springer MD Consulting Physician Orthopedic Surgery 12/05/19 Sindy Armstrong, RN Registered Nurse Pulmonary Disease 03/23/22 documented as of this encounter
--- OUTSIDE RECORDS SUMMARY | 2025-01-08 08:38 | XMS_ITS | Patient Health Record ---
Author Organization [facility] [employer] Address [address] [facility] [address] [place] [address] Care Team Providers Care Telemetry Tech Name Role Phone Cara ERAZO, [facility] Primary Care Provider Toy Cordon Unavailable [phone] Allergies Allergen (clinical drug ingredient) Drug/Non Drug Allergy documented on EMR Reaction Allergy Type Onset Date Status nitrofurantoin Macrodantin Unknown Drug Allergy Active codeine Codeine Unknown Drug Allergy Active Results Component Value Reference Range Notes UDT Reviewed date:04/10/2024 02:37:43 PM Interpretation: Performing Lab: Notes/Report: THC N 0 - 50 ng/ml Cocaine N 0 - 300 ng/ml Amphetamine N 0 - 1000 ng/ml Buprenorphine (BUP) N 0 - 10 ng/ml Secobarbital (Bar) N 0 - 300 ng/ml Oxazepam (BZO) POS 0 - 300 ng/ml 3-gyjlpkkgld-9,9-pbrrjwcf-7, 3-diphen ylpyrrolidine (EDDP) N 0 - 300 ng/ml Methamphetamine (MET) N 0 - 1000 ng/ml Methylenedioxymethamphetamine (MDMA) N 0 - 500 ng/ml Morphine (MOP 300/[id number]) N 0 - 300 ng/ml Methadone (MTD) N 0 - 300 ng/ml Phencyclidine (PCP) N 0 - 25 ng/ml Nortriptyline (TCA) N 0 - 1000 ng/ml Oxycodone N 0 - 300 ng/ml x N 0 - 300 ng/ml EXTRA SPECIMEN ([id number]) Reviewed date:04/30/2024 09:36:35 AM Interpretation: Performing Lab:[place], [facility]-[id number] J Carlos Perez, [id number] Noni Madden MD Notes/Report: FASTING: UNKNOWN EXTRA TUBE RECEIVED An extra specimen was received with no test requested. The specimen will be maintained in storage in case additional testing is needed. Please call the client service department for further assistance. SPECIMEN TYPE RECEIVED Clinical Drug Test Your request to have a duplicate copy faxed has been acknowledged. Queued to: [id number] Reason For Referral No Information Medications Medication SIG (Take, Route, Frequency, Duration) Notes Start Date End Date Status Sertraline HCl 25 MG Tablet 1 tablet Orally Once a day; Duration: 30 days Active Levothyroxine Sodium 88 MCG Tablet Oral; Duration: 20 Days Active Temazepam 15 MG Capsule 1 capsule at bed time as needed Orally Once a day; Duration: 30 days 12/11/2024 Active Pantoprazole Sodium 40 MG Tablet Delayed Release TAKE 1 TABLET BY MOUTH EVERY DAY IN THE MORNING Oral; Duration: 90 Days Active Famotidine 40 MG Tablet TAKE 1 TABLET BY MOUTH EVERY DAY AT BEDTIME Oral; Duration: 90 Days Active Montelukast Sodium 10 MG Tablet TAKE 1 TABLET BY MOUTH EVERY DAY Oral; Duration: 90 Days Active Rosuvastatin Calcium 40 MG Tablet Oral; Duration: 30 Days Active Ezetimibe 10 MG Tablet Oral; Duration: 3 0 Days Active Isosorbide Mononitrate ER 60 MG Tablet Extended Release 24 Hour Oral; Duration: 30 Days Active Pregabalin 75 MG Capsule Oral; Duration: 30 Days Active Pregabalin 50 MG Capsule Oral; Duration: 30 Days Not-Taking Cetirizine HCl 10 MG Tablet Oral; Duration: 30 Days Active Zolpidem Tartrate 10 MG Tablet 1 tablet at bedtime as needed Orally Once a day; Duration: 30 days As needed 12/20/2024 02/18/2025 Active ALPRAZolam 1 MG Tablet TAKE 1 TABLET BY MOUTH THREE TIMES DAILY (DO NOT TAKE AT BEDTIME WITH TEMAZEPAM); Duration: 30 01/06/2025 Active Ondansetron HCl 4 MG Tablet 1 tablet Orally twice a day; Duration: 30 days As needed Active Social History Tobacco Use: Social History Observation Description Date Details (start date - stop date) Never Smoker NA - NA Sex Assigned At : Social History Observation Description Sex Assigned At Female Social History Miscellaneous: Social Info Question Answer Notes Advance Care Planning Are you your own decision-maker Yes Do you have Power of Timekeeper for Health or [facility]? No Advance Directive Living Will,FULL CODE Safety issues: Are there any firearms in the house? No Social History Social Info Question Answer Notes Household: Marital Status: Number of Adults in household: 1 Level of Education: Finished High School Drug/Alcohol: Social Info Question Answer Notes Drugs Have you used drugs other than those for medical reasons in the past 12 months? No AUDIT-C (Standard) Did you have a drink containing alcohol in the past year? Yes How often did you have six or more drinks on one occasion in the past year? Declined to specify (0 point) How many drinks did you have on a typical day when you were drinking in the past year? Declined to specify (0 point) How often did you have a drink containing alcohol in the past year? Declined to specify (0 point) Tobacco Use: Social Info Question Answer Notes Tobacco Control (Standard) Tobacco use: Nonsmoker How long has it been since you last smoked? Greater than 10 years Additional Details Category Social Info Options Details Miscellaneous: Occupation: Retired Drug/Alcohol: Do you smoke marijuana? Den ies Do you drink alcohol? Socially Problems Problem Type SNOMED Code ICD Code Onset Dates Problem Status W/U Status Risk Notes Problem Insomnia disorder related to another mental disorder (79255271) Insomnia due to other mental disorder (F51.05) Active confirmed Problem Mental disorder (27386228) Mental disorder, not otherwise specified (F99) Active confirmed Problem Moderate recurrent major depression (18863704) Depression, major, recurrent, moderate (F33.1) Active confirmed Problem Generalized anxiety disorder (99663856) ENRICO (generalized anxiety disorder) (F41.1) Active confirmed Vital Signs Heart Rate 77 /min 12/11/2024 Height-cm 157.48 cm 12/11/2024 Blood pressure diastolic 66 mm Hg 12/11/2024 Weight-kg 53.3 kg 12/11/2024 Height 62 in 12/11/2024 Blood pressure systolic 112 mm Hg 12/11/2024 Weight 117.5 lbs 12/11/2024 BMI 21.49 kg/m2 12/11/2024 Encounters Encounter Location Date Provider Diagnosis [facility] [employer] [facility] [address] [place] [address] 04/09/2024 Toy Knight ENRICO (generalized anxiety disorder) F41.1 ; Depression, major, recurrent, moderate F33.1 ; Insomnia due to other mental disorder F51.05 and High risk medication use Z79.899 [facility] [employer] [facility] [address] [facility] [address] [place] [address] 05/16/2024 Toy Knight ENRICO (generalized anxiety disorder) F41.1 ; Depression, major, recurrent, moderate F33.1 ; Insomnia due to other mental disorder F51.05 and High risk medication use Z79.899 [facility] [employer] [place] [id number] [facility] [address] [facility] [address] [place] [address] 07/10/2024 Toy Knight Encounter for screen ing for depression Z13.31 ; Encounter for screening for cardiovascular disorders Z13.6 ; ENRICO (generalized anxiety disorder) F41.1 ; Depression, major, recurrent, moderate F33.1 ; Insomnia due to other mental disorder F51.05 and High risk medication use Z79.899 [facility] [employer] [place] [address] [facility] [address] [address] 08/13/2024 Toy Knight Encounter for screen ing for cardiovascular disorders Z13.6 ; Encounter for screening for depression Z13.31 ; ENRICO (generalized anxiety disorder) F41.1 ; Depression, major, recurrent, moderate F33.1 ; Insomnia due to other mental disorder F51.05 and High risk medication use Z79.8[address] [employer] [address] [address] 09/05/2024 Toy Knight Encounter for screen ing for cardiovascular disorders Z13.6 ; Encounter for screening for depression Z13.31 ; ENRICO (generalized anxiety disorder) F41.1 ; Depression, major, recurrent, moderate F33.1 ; Insomnia due to other mental disorder F51.05 and High risk medication use Z79.899 [facility] [employer] [place] [address] [facility] [address] [place] [address] 10/08/2024 Toy Knight Encounter for screen ing for cardiovascular disorders Z13.6 ; Encounter for screening for depression Z13.31 ; ENRICO (generalized anxiety disorder) F41.1 ; Depression, major, recurrent, moderate F33.1 ; Insomnia due to other mental disorder F51.05 ; High risk medication use Z79.899 and Nausea R11.0 [facility] [employer] [place] [address] [facility] [address] [place] [address] 11/07/2024 Toy Knight ENRICO (generalized anxiety disorder) F41.1 ; Depression, major, recurrent, moderate F33.1 ; Insomnia due to other mental disorder F51.05 ; High risk medication use Z79.899 and Nausea R11.0 [facility], [facility] [address] [place] [address] 12/11/2024 Toy Knight ENRICO (generalized anxiety disorder) F41.1 ; Insomnia due to other mental disorder F51.05 ; Depression, major, recurrent, moderate F33.1 ; High risk medication use Z79.899 and Nausea R11.0 [facility], [facility] [address] [place] [address] 04/09/2024 Toy Knight [facility], [facility] [address] [place] [address] 04/10/2024 Toy Knight [facility], [facility] [address] [place] [address] 07/11/20[facility] [address] [place] [address] 10/04/2024 Toy Knight ENRICO (generalized anxiety disorder) F41.1 [facility], [facility] [address] [place] [address] 10/09/2024 Toy Nielsena [facility], [facility] [address] [place] [address] 11/12/2024 Toy Gabrieloza [facility], [facility] [address] [place] [address] 12/19/2024 Toy Knight ENRICO (generalized anxiety disorder) F41.1 and Insomnia due to other mental disorder F51.05 [facility], [facility] [address] [place] [address] 12/24/2024 Toy Knight ENRICO (generalized anxiety disorder) F41.1 [facility], [facility] [address] [place] [address] 08/27/2024 Toy Gabrieloza [facility], [facility] [address] [place] [address] 08/27/2024 Toy Knight [facility] [employer] [address] [place] [address] 08/27/2024 Toy Knight [facility] [employer] [facility] [address] [place] [address] 10/16/2024 Toy Knight [facility] [employer] [address] [place] [address] 10/17/2024 Toy Knight Insomnia due to othe r mental disorder F51.05 Assessments Encounter Date Diagnosis (ICD Code) Assessment [...] use is recommended short term therapy not termite treater. High risk for abuse, tolerance and addiction. [...] use is recommended short term therapy not termite treater. High risk for abuse, tolerance and addiction. [...] on alprazolam 1mg QID- high risk medication 08/13/2024 Encounter for screening for cardiovascular disorders (ICD-10 - Z13.6) on alprazolam 1mg QID- high risk medication 09/05/2024 Encounter for screening for cardiovascular disorders (ICD-10 - Z13.6) on alprazolam 1mg QID- high risk medication 10/04/2024 ENRICO (generalized anxiety disorder) (ICD-10 - F41.1) 10/08/2024 Encounter for screening for cardiovascular disorders (ICD-10 - Z13.6) on alprazolam 1mg QID- high risk medication 10/17/2024 Insomnia due to other mental disorder (ICD-10 - F51.05) 11/07/2024 ENRICO (generalized anxiety disorder) (ICD-10 - F41.1) on alprazolam 1mg qid - she has been on it for years on alprazolam 1mg QID- high risk medication 12/11/2024 Insomnia due to other mental disorder (ICD-10 - F51.05) on zolpidem 5mg by pcp. on alprazolam 1mg QID- high risk medication 12/11/2024 ENRICO (generalized anxiety disorder) (ICD-10 - F41.1) on alprazolam 1mg qid - she has been on it for years on alprazolam 1mg QID- high risk medication 12/19/2024 ENRICO (generalized anxiety disorder) (ICD-10 - F41.1) 12/24/2024 ENRICO (generalized anxiety disorder) (ICD-10 - F41.1) 12/11/2024 Depression, major, recurrent, moderate (ICD-10 - F33.1) on alprazolam 1mg QID- high risk medication 12/19/2024 Insomnia due to other mental disorder (ICD-10 - F51.05) 11/07/2024 Depression, major, recurrent, moderate (ICD-10 - F33.1) on alprazolam 1mg QID- high risk medication 10/08/2024 Encounter for screening for depression (ICD-10 - Z13.31) on alprazolam 1mg QID- high risk medication 10/08/2024 ENRICO (generalized anxiety disorder) (ICD-10 - F41.1) on alprazolam 1mg qid - she has been on it for years on alprazolam 1mg QID- high risk medication 09/05/2024 Encounter for screening for depression (ICD-10 - Z13.31) on alprazolam 1mg QID- high risk medication 08/13/2024 Encounter for screening for depression (ICD-10 - [...] use is recommended short term therapy not mcc. High risk for abuse, tolerance and addiction. 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 High risk for abuse, tolerance and addiction. [...] on alprazolam 1mg QID- high risk medication 08/13/2024 ENRICO (generalized anxiety disorder) (ICD-10 - F41.1) on alprazolam 1mg qid by pcp on alprazolam 1mg QID- high risk medication 09/05/2024 ENRICO (generalized anxiety disorder) (ICD-10 - F41.1) on alprazolam 1mg qid - she has been on it for years on alprazolam 1mg QID- high risk medication 10/08/2024 Depression, major, recurrent, moderate (ICD-10 - F33.1) on alprazolam 1mg QID- high risk medication 11/07/2024 Insomnia due to other mental disorder (ICD-10 - F51.05) on zolpidem 5mg by pcp. on alprazolam 1mg QID- high risk medication 12/11/2024 High risk medication use (ICD-10 - Z79.899) mcc use benzodiazepine is not recommended, greater risk of use in elderly population. Plan to taper off of benzodiazepine in the future. on alprazolam 1mg QID- high risk medication 12/11/2024 Nausea (ICD-10 - R11.0) on alprazolam 1mg QID- high risk medication 11/07/2024 High risk medication use (ICD-10 - Z79.899) mcc use benzodiazepine is not recommended, greater risk of use in elderly population. Plan to taper off of benzodiazepine in the future. on alprazolam 1mg QID- high risk medication 10/08/2024 Insomnia due to other mental disorder (ICD-10 - F51.05) on zolpidem 5mg by pcp. 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 on alprazolam 1mg QID- high risk medication 11/07/2024 Nausea (ICD-10 - R11.0) on alprazolam 1mg QID- high risk medication 09/05/2024 Insomnia due to other mental disorder (ICD-10 - F51.05) on zolpidem 5mg by pcp. 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 Plan to taper off of benzodiazepine in the future. on alprazolam 1mg QID- high risk medication 08/13/2024 High risk medication use (ICD-10 - Z79.899) mcc use benzodiazepine is not recommended, greater risk of use in elderly population. Plan to taper off of benzodiazepine in the future. 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 Plan to taper off of benzodiazepine in the future. 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 High risk for abuse, tolerance and addiction. [...] improve with medication adjustments. 05/16/2024 Other stop quetiapine. Start Mirtazapine 7.5mg at bedtime x 14 [...] on alprazolam 1mg QID- high risk medication 08/13/2024 Reba Ca presents with severe anxiety and depression, reporting side effects from current medication regimen including nocturnal numbness and sleep disturbances. Anxiety and Depression Assessment: Patient reports severe anxiety and depression, with anxiety described as off the charts. Current medication regimen includes Xanax taken 4 times daily (6:30 AM, 11:30 AM/12 PM, 3:30/4 PM, and 9:30 PM) and Ambien at bedtime. Patient expresses desire for medication that addresses both anxiety and depression with minimal side effects. Previous trials of sertraline (Zoloft) and recent trial of quetiapine (Seroquel) noted. Patient reports history of positive response to various antidepressants prescribed by previous provider, Dr. Laughlin. Current symptoms include frequent crying and poor appetite, though patient forces herself to eat breakfast and supper. Plan: - Discontinue quetiapine (Seroquel) - Initiate sertraline (Zoloft) - Start at 25 mg PO daily for 1 week - Increase to 50 mg PO daily for 1 week - Then increase to 100 mg PO daily - Informed patient that dose may be increased up to 200 mg if needed - Discussed potential side effects: sleepiness, weight gain, sexual side effects - Advised that Zoloft is not considered a high-risk medication - Continue Xanax as currently prescribed - Continue Ambien as currently prescribed - Follow-up appointment in approximately 1 month - Provided printed instructions for patient to give to nursing staff at place of residence Insomnia Assessment: Patient reports sleep disturbances, including waking at 2:30 AM and difficulty returning to sleep. Current management includes Xanax and Ambien at bedtime, which patient reports as helpful. Plan: - Continue current regimen of Xanax and Ambien at bedtime - Monitor sleep quality with initiation of sertraline Medication Side Effects Assessment: Patient reports experiencing numbness, particularly in the arms, which she attributes to a new medication (likely quetiapine). This sensation is described as distinct from her pre-existing neuropathy. Patient also notes experiencing withdrawal symptoms from Xanax during the night, likely due to its short half-life. Plan: - Discontinue quetiapine to address numbness side effect - Monitor for resolution of numbness with medication change - Educate patient on potential side effects of newly prescribed sertraline Neuropathy Assessment: Patient reports a history of neuropathy, currently managed with Lyrica, which she states is effective in controlling symptoms. 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 Plan: - Continue current gastrointestinal medication regimen the note is transcribed using speech recognition software. It is a reflection of a visit with the patient. It might have some inaccuracy, including medication names and transcribing errors, though efforts have been made to correct them. on alprazolam 1mg QID- high risk medication 09/05/2024 Reba Ca presents with ongoing neuropathic pain, sleep disturbances, and medication management concerns, including recent difficulties obtaining Xanax refills. Neuropathic Pain Assessment: Patient reports persistent neuropathic pain, particularly severe at night, interfering with sleep. Currently taking Lyrica for management, but experiencing inadequate relief. The recent increase in sertraline (Zoloft) dosage is noted, though its correlation with neuropathy exacerbation is considered atypical. Plan: - Continue current Lyrica regimen - Communicate with Dr. Bolton regarding potential Lyrica dose increase - Monitor for any changes in neuropathic symptoms Insomnia Assessment: Patient reports significant sleep disturbances, waking at 1-2 AM with pain and nausea. Current sleep regimen includes Ambien, mirtazapine, and xanax, taken around 9:30-10 PM. Sleep onset appears adequate, but sleep maintenance is problematic. Concerns noted about the concurrent use of Ambien and Xanax due to potential risks. Plan: - Initiate Belsomra 20 mg PO at bedtime for sleep maintenance - Continue current sleep medications (Ambien, mirtazapine, ) - Educate patient on Belsomra's mechanism of action (wakeful receptor inhibition) - Advise against increasing Ambien dose due to risks associated with concurrent Xanax use - Monitor efficacy and side effects of new sleep regimen Medication Management - Anxiolytic Assessment: Patient experienced difficulties obtaining Xanax refill, leading to brief discontinuation and subsequent adverse effects. A temporary prescription was obtained from the primary care physician, filled on August 28, expected to last until September 27. Plan: - Continue current Xanax regimen - Refill Xanax prescription to ensure continuous supply - Emphasize importance of timely refill requests to avoid discontinuation - Monitor for ongoing anxiolytic needs and efficacy Medication Management - Antidepressant Assessment: Patient expresses reluctance to increase sertraline (Zoloft) beyond 100 mg. Current dose and efficacy not specified in the transcript. Plan: - Maintain current sertraline dose, not exceeding 100 mg as per patient preference - Monitor for depressive symptoms and medication efficacy - Discuss alternative treatment options if current regimen proves inadequate the note is transcribed using speech recognition software. It is a reflection of a visit with the patient. It might have some inaccuracy, including medication names and transcribing errors, though efforts have been made to correct them. on alprazolam 1mg QID- high risk medication 10/08/2024 Reba Ca presents with persistent nausea, sleep disturbances, and neuropathic pain, reporting ineffectiveness of current medications including Belsomra and Ambien. Insomnia Assessment: Patient reports difficulty maintaining sleep, waking up at 2-3 AM or as early as midnight, and being unable to fall back asleep. Current sleep medications (Belsomra and Ambien) are ineffective. Patient falls asleep around 10 PM but experiences agent producer awakenings. The sleep disturbances are contributing to daytime fatigue, weakness, and dizziness. Plan: - Discontinue Belsomra - Discontinue regular Ambien - Start Ambien CR (extended-release ) 6.25 mg PO at bedtime - Follow-up appointment in one month Nausea Assessment: Patient reports persistent nausea throughout the day, which started early in the past month. The nausea is worse than previously experienced and is present constantly. Patient is able to force herself to eat and does not vomit. The nausea predates the recent increase in Lyrica dosage. Plan: - Prescribe Zofran 4 mg PO BID PRN for nausea Neuropathic pain Assessment: Patient reports a flare-up of neuropathy, primarily affecting the left arm. The pain is worse at night when in bed. Dr. Bolton recently increased the dosage of Lyrica to manage the symptoms, but the patient continues to experience pain. Plan: - Continue current Lyrica regimen as prescribed by Dr. Bolton Medication management Assessment: Patient is currently taking Zoloft 100 mg, which she reports as being a higher dose than she has taken previously. She expresses concern about the dosage being too high for her. Plan: - Continue current Zoloft regimen - Reassess medication efficacy and side effects at follow-up appointment the note is transcribed using speech recognition software. It is a reflection of a visit with the patient. It might have some inaccuracy, including medication names and transcribing errors, though efforts have been made to correct them. on alprazolam 1mg QID- high risk medication 11/07/2024 Reba Ca presents with chronic insomnia, neuropathic pain, and medication side effects, reporting difficulty falling asleep and maintaining sleep despite current treatments. Insomnia Assessment: Patient reports waking between midnight and 3 AM and remaining awake for the rest of the night. Even with Ambien, she only achieves a couple hours of sleep. She previously experienced better sleep 8 months ago while staying with her son. The patient discontinued Ambien for 2 months and experienced withdrawal symptoms, including shaking. Current insomnia is severe, affecting daytime functioning with an inability to nap. Patient reports difficulty shutting off her mind. Plan: - Continue Ambien - Add Rozerem - Follow up in 1 month Neuropathic Pain Assessment: Patient experiences burning nerve pain from neuropathy, which has worsened since starting Zoloft. Pain is more severe at night when lying down, causing the patient to sleep in a recliner. Lyrica dose was recently increased by Dr. Shelton, which helps manage pain during the day but is less effective at night. Plan: - Continue current Lyrica regimen Medication Side Effects Assessment: Patient reports ongoing side effects from Zoloft, including exacerbation of neuropathic pain. Additionally, patient experiences constipation requiring nightly use of Senokot. Plan: - Continue sertraline - Continue alprazolam - Continue Senokot 2 pills nightly as needed for constipation the note is transcribed using speech recognition software. It is a reflection of a visit with the patient. It might have some inaccuracy, including medication names and transcribing errors, though efforts have been made to correct them. on alprazolam 1mg QID- high risk medication 12/11/2024 Reba Ca presents with severe insomnia, nausea, and burning nerve-like pain, reporting significant sleep disturbances and medication concerns. Insomnia Assessment: Patient reports severe sleep disturbances, with difficulty initiating and maintaining sleep. She falls asleep around 10 PM but wakes up between midnight and 3 AM, remaining awake for the rest of the night. Current sleep medications (Ambien and Xanax) are ineffective, providing only 2-3 hours of sleep. The insomnia has worsened since starting Zoloft 100 mg and experiencing increased stress. Previous trials of trazodone and mirtazapine were unsuccessful. The combination of Ambien and Xanax at bedtime is not recommended due to increased sedative effects, cognitive impairment, and potential respiratory problems. The short half-life of Xanax may be contributing to sleep interruptions as levels drop during the night. Plan: - Discontinue Ambien at bedtime - Discontinue nighttime Xanax - Start temazepam at bedtime - Informed consent: Same side effects as other benzodiazepines , including potential for drowsiness, cognitive effects, and development of tolerance or addiction - Patient to message provider regarding effectiveness of new medication regimen - Follow-up appointment scheduled in one month Nausea Assessment: Patient reports persistent nausea, which she attributes to Zoloft as it was not present before starting the medication. The nausea is severe enough to affect her appetite and eating habits. Previously prescribed anti-nausea medication was effective but the prescription has not been refilled. Plan: - Refill anti-nausea medication Burning nerve-like pain Assessment: Patient reports ongoing burning nerve-like pain, which is managed with Lyrica prescribed by Dr. Bello. The pain has slightly worsened since starting Zoloft. Plan: - Continue Lyrica Medication management Assessment: Patient is currently taking Zoloft 100 mg, which was increased from a lower dose previously prescribed by Dr. Barclay. Side effects potentially attributed to Zoloft include nausea, shakiness, and hair loss. Xanax is taken 4 times daily (8 AM, 12 PM, 4 PM, 9:30 PM). Plan: - Continue Zoloft - Continue daytime Xanax regimen (8 AM, 12 PM, 4 PM) - Monitor for side effects of Zoloft, including nausea, shakiness, and hair loss on alprazolam 1mg QID- high risk medication 10/09/2024 Other Electronic Prior Authorization was requested for Zolpidem Tartrate ER 6.25 MG Tablet Extended Release. Provider can order medication once approval received. 11/12/2024 Other Electronic Prior Authorization was requested for Rozerem 8 MG Tablet. Provider can order medication once approval received. 10/17/2024 Other Electronic Prior Authorization was requested for Zolpidem Tartrate ER 6.25 MG Tablet Extended Release. Provider can order medication once approval received. Plan Of Treatment Next Appt Details Provider Name:Toy tony, 01/14/2025 09:45:00 AM, [address], [facility], [place], [address], Insurance Providers Payer Name Payer Address Payer Phone Subscriber Number Group Number Insured Name Patient Relationship to Insured Coverage Start Date Coverage End Date Medicare-I l Medicare [address] [place] [address] [id number] Angelia Ca Self - patient is the insured [address] [place] [address] [id number] Angelia Ca Self - patient is the insured Medical [...]
--- OUTSIDE RECORDS SUMMARY | 2025-01-08 08:38 | XMS_ITS | Encounter Summary ---
Author Organization [facility] Address [address] [address] Care Team Providers Care Lead Shop Operator Name Role Phone Debora Fitch MD Primary Care Provider [phone] Miscellaneous, Not In File Primary Care Provider Unavailable Debora Fitch MD Primary Care Provider [phone] Naila Marroquin MD Primary Care Provider [phone] Debora Fitch MD Primary Care Provider Naila Marroquin MD Primary Care Provider Debora Fitch MD Primary Care Provider [phone] Naila Marroquin MD Primary Care Provider Debora Fitch MD Primary Care Provider Naila Marroquin MD Primary Care Provider Debora Fitch MD Primary Care Provider Naila Marroquin MD Primary Care Provider Debora Fitch MD Primary Care Provider Naila Marroquin MD Primary Care Provider Debora Fitch MD Primary Care Provider Naila Marroquin MD Primary Care Provider [phone] Debora Fitch MD Primary Care Provider [phone] Naila Marroquin MD Primary Care Provider [phone] Janine Bañuelos RN Unavailable UnaJohn Paul Sawant MD Unavailable [phone] Sindy Armstrong RN Unavailable Darlene vailable Encounter Details Date Type Department Care Team (Late st Contact Info) Description 05/19/2016 Orders Only [facility] Provider, MD Sherif [address] [place] [address] Social History Tobacco Use Types Packs/Day Years Used Date Smoking Tobacco: Former Cigarettes Q uit: 05/01/1974 Alcohol Use Standard Drinks/Week Comments Yes 0 (1 standard drink = 0.6 oz pur e alcohol) Comments Unknown Sex and Gender Information Value Date Recorded Sex Assigned at Not on file Legal Sex Female 8:29 PM HOSPITALITY COORDINATOR Gender Identity Female 09/24/2021 1:08 PM [...] COVID: Suspected 05/28/2021 05/28/2021 05/28/2021 3:42 PM HOSPITALITY COORDINATOR COVID: Suspected 01/24/2023 01/24/2023 01/24/2023 1:28 AM CDT COVID: Suspected 01/24/2023 01/25/2023 01/25/2023 11:46 AM CDT COVID19 Comment:COVID + on home test. Symptoms started 3 days ago. 05/06/2023 05/06/2023 05/16/2023 3:05 AM HOSPITALITY COORDINATOR COVID: Recovered Comment:Added based on recent COVID infection. 05/16/2023 05/23/2023 08/14/2023 3:05 AM C DT documented as of this encounter Care Teams Lead Shop Operator Relationship Specialty Start Date End Date Debora Fitch MD [address] [address] PCP - General 08/19/16 11/03/16 Miscellaneous, Not In File PCP - General 11/04/16 11/07/16 Debora Fitch MD [address] [address] PCP - General 11/08/16 11/17/16 Naila Marroquin MD [address] [place] [address] PCP - General 11/18/16 11/21/16 Debora Fitch MD [address] [address] PCP - General 11/22/16 11/22/16 Naila Marroquin MD [address] [place] [address] PCP - General 11/23/16 11/26/16 Debora Fitch MD [address] [address] PCP - General 11/27/16 01/03/17 Naila Marroquin MD [address] [place] [address] PCP - General 01/04/17 01/26/17 Debora Fitch MD [address] [facility] [place] [address] PCP - General 01/27/17 02/06/17 Naila Marroquin MD [address] [place] [address] PCP - General 02/07/17 02/13/17 Debora Fitch MD [address] [facility] [address] [address] PCP - General 02/14/17 04/04/17 Naila Marroquin MD [address] [place] [address] PCP - General 04/05/17 04/05/17 Debora Fitch MD [address] [facility] [address] [address] PCP - General 04/06/17 05/18/17 Naila Marroquin MD [address] [place] [address] PCP - General 05/19/17 06/11/17 Debora Fitch MD [address] [address] PCP - General 06/12/17 06/14/17 Naila Marroquin MD [address] [place] [address] PCP - General 06/15/17 07/12/17 Debora Fitch MD [address] [facility] [address] [place] [address] PCP - General 07/13/17 07/20/17 Naila Marroquin MD [address] [place] [address] PCP - General 07/21/17 Janine Bañuelos, resident inspector Nurse 08/02/18 John Paul Springer MD Consulting Physician Orthopedic Surgery 12/05/19 Sindy Armstrong, ALEXANDRA Registered Nurse Pulmonary Disease 03/23/22 documented as of this encounter
--- OUTSIDE RECORDS SUMMARY | 2025-01-08 08:38 | XMS_ITS | Encounter Summary ---
Author Organization [facility] Address [address] [place] [address] Phone Care Team Providers Care Geometry Professor Name Role Phone Debora Fitch MD Primary Care Provider [phone] Naila Marroquin MD Primary Care Provider [phone] Debora Fitch MD Primary Care Provider [phone] Naila Marroquin MD Primary Care Provider [phone] Debora Fitch MD Primary Care Provider [phone] Naila Marroquin MD Primary Care Provider [phone] Debora Fitch MD Primary Care Provider [phone] Naila Marroquin MD Primary Care Provider [phone] Debora Fitch MD Primary Care Provider [phone] Naila Marroquin MD Primary Care Provider [phone] Janine Bañuelos RN Unavailable John Paul [place] MD Unavailable [phone] Sindy Armstrong RN Unavailable Darlene vailable Encounter [...] on file Legal Sex Female 8:29 PM MANAGER OPERATIONS AND PROCUREMENT Gender Identity Female 09/24/2021 1:08 PM CDT [...] COVID: Suspected 05/28/2021 05/28/2021 05/28/2021 3:42 PM MANAGER OPERATIONS AND PROCUREMENT COVID: Suspected 01/24/2023 01/24/2023 01/24/2023 1:28 AM CDT COVID: Suspected 01/24/2023 01/25/2023 01/25/2023 11:46 AM CDT COVID19 Comment:COVID + on home test. Symptoms started 3 days ago. 05/06/2023 05/06/2023 05/16/2023 3:05 AM MANAGER OPERATIONS AND PROCUREMENT COVID: Recovered Comment:Added based on recent COVID infection. 05/16/2023 05/23/2023 08/14/2023 3:05 AM C DT documented as of this encounter Care Teams Geometry Professor Relationship Specialty Start Date End Date Debora Fitch MD [address] [facility] [address] [place] [address] PCP - General 01/27/17 02/06/17 Naila Marroquin MD [address] [place] [address] PCP - General 02/07/17 02/13/17 Debora Fitch MD [address] [address] PCP - General 02/14/17 04/04/17 Naila Marroquin MD [address] [place] [address] PCP - General 04/05/17 04/05/17 Debora Fitch MD [address] [facility] [address] [address] PCP - General 04/06/17 05/18/17 Naila Marroquin MD [address] [place] [address] PCP - General 05/19/17 06/11/17 Debora Fitch MD [address] [facility] [address] [address] PCP - General 06/12/17 06/14/17 Naila Marroquin MD [address] [place] [address] PCP - General 06/15/17 07/12/17 Debora Fitch MD [address] [address] PCP - General 07/13/17 07/20/17 Naila Marroquin MD [address] [facility] [address] [place] [address] PCP - General 07/21/17 Janine Bañuelos, director consumer Nurse 08/02/18 John Paul Springer MD Consulting Physician Orthopedic Surgery 12/05/19 Sindy Armstrong, RN Registered Nurse Pulmonary Disease 03/23/22 documented as of this encounter
--- OUTSIDE RECORDS SUMMARY | 2025-01-08 08:38 | XMS_ITS | Clinical Summary ---
Author Organization [facility] Address [address] [place] [address] Care Team Providers Care Systems Support Specialist Name Role Phone Naila Marroquin MD Primary Care Provider [phone] Janine Bañuelos RN Unavailable Unajose martini John Paul David MD Unavailable [phone] Sindy Armstrong RN Unavailable Darlene vailable Allergies [...] (06/12/2020): Added automatically from request for surgery [id number] Hallux valgus of left foot 11/05/2019 Overview (11/05/2019): Added automatically from request for surgery [id number] Non-allergic rhinitis 01/02/2018 Seasonal allergic rhinitis due [...] of asa'[place] heart with stable angina pectoris ([facility]) 04/06/2015 Overview (08/04/2016): Coronary artery disease involving [...] 11/21/2020 Assessment & Plan (04/18/2019 2:04 PM MICROSTRATEGY REPORTS DEVELOPER): The patient has chronic cough is likely [...] (07/04/2018): Added automatically from request for surgery [id number] Gastroesophageal reflux dise ase with esophagitis 04/02/2018 11/21/2020 Overview (04/02/2018): Added automatically from request for surgery [id number] 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 04/02/2018 11/21/2020 Overview (04/02/2018): Added automatically from request for surgery [id number] Pain of right lower extremity 10/02/2017 11/21/2020 [...] Encounters Date Type Department Care Team Description 01/07/2025 4:09 PM CDT - 01/07/2025 11:59 PM CDT Hospital Encounter [facility] [address] [place] [address] Hypogammaglobulinemia Discharge Disposition: Discharge to home or self care 01/07/2025 12:30 PM CDT Infusion [facility] [address] [place] [address] [address] [place] [address] Hypogammaglobulinemia (Primary Dx) 12/10/2024 12:30 PM CDT Infusion [facility] [address] [place] [address] [address] [place] [address] Hypogammaglobulinemia (Primary Dx) 11/12/2024 12:30 PM CDT Infusion [facility] [address] [place] [address] [address] [place] [address] Hypogammaglobulinemia (Primary Dx) 10/15/2024 12:30 PM CDT Infusion [facility] [address] [place] [address] 2 [address] [place] [address] Hypogammaglobulinemia (Primary Dx) from Last 3 Months Immunizations Immunization Administration Dates Next Due Influenza, Quadrivalent, Hig h Dose, Preservative Free, Intrr 03/30/2021 Influenza, Trivalent, Preservative Free, Intramu scular 02/12/2016 Influenza, Unspecified 02/12/2020 Moderna SARS-CoV-2 Monovalent Vaccination (12+ Y RS) 07/06/2020 Pneumococcal Conjugate PCV 13 03/01/2016 Pneumococcal Polysaccharide PPV23 02/03/2017,03/2013 Surgical History Surgery Date Site/Laterality Comments HYSTERECTOMY 1969's CHOLECYSTECTOMY 1979' BUNIONECTOMY 12/05/2019 Left BLADDER SURGERY chronic bladder pain - has nerve stimulator CARDIAC CATHETERIZATION Coronary Artery Disease mod nonobstructive 50-60% : COLONOSCOPY several UPPER GASTROINTESTINAL ENDOSCOPY Medical History Medical History Date Comments Depression Depression Gastroesophageal reflux disease GERD Hyperlipidemia PONV (postoperative nausea and vomiting) Hypothyroidism Darby esophagus Coronary artery disease Anxiety Allergic rhinitis Tracheobronchomalacia Bipolar disorder Neuropathy Arthritis Lung disease Family History Medical [...] often do you attend chur ch or confucianist services? Never 01/25/2023 Do you belong to any clubs o r organizations such as orthodox groups, unions, fraternal or athletic groups, or [...] on file Legal Sex Female 8:29 PM MICROSTRATEGY REPORTS DEVELOPER Gender Identity Female 09/24/2021 1:08 PM [...] F) 01/07/2025 2:25 PM CDT Respiratory Rate 20 10/31/2023 10:21 AM CDT Oxygen Saturation 94% 07/16/2024 11:07 AM CDT Inhaled Oxygen Concentration - - Weight 53.5 kg (118 lb) 07/16/2024 11:07 AM CDT Height 154.9 cm (5' 1) 07/16/2024 11:07 AM CDT Body Mass Index [...] 01/13/2022, 07/21/2021, Additional history exists Influenza Vaccine (#1) 2024 , 03/30/2021, 02/25/2020, Additional history exists DTaP/Tdap/Td Vaccine [...] history exists Medical Devices Implanted Type Area Audio Production Manager Device Identifier Shelf Expiration Date Model / Serial / Lot Nerve Stimulator-Righ t Hip Description:Not active [employer] [id number] Bit 2.5mm Drill Cannulated Ao Quick Connect Color Coded - [id number] Implanted:Qty: 1 on 12/05/2019 at [facility] Left: Foot [employer] [id number] / / [employer] [id number] Screw Bone Medline Unite L18mm Od3.5mm Foot Ankle Nonlock - [id number] Implanted:Qty: 1 on 12/05/2019 by John Paul Springer MD at [facility] [employer] [id number] / / [employer] [id number] Screw Bone Medline Unite L38mm Od3.5mm Head Nonsterile - [id number] Implanted:Qty: 1 on 12/05/2019 by John Paul Springer MD at [facility] Left: Foot [employer] [id number] / / Explanted Type Area Audio Production Manager Device Identifier Shelf Expiration Date Model / Serial / Lot [employer] [id number] Screw Bone Medline Unite L12mm Od2.7mm Foot Ankle Nonlock - [id number] Implanted:Qty: 1 Explanted:Qty: 1 on 12/05/2019 at [facility] Left: Foot [employer] [id number] / / [employer] [id number] Screw Bone Medline Unite L14mm Od2.7mm Foot Ankle Nonlock - [id number] Explanted:Qty: 1 on 12/05/2019 at [facility] Left: Foot [employer] [id number] / / [employer] [id number] Pin Fixation Medline Unite L10mm Od1.1mm - [id number] Implanted:Qty: 2 on 12/05/2019 at [facility] Explanted:Qty: 2 on 06/23/[address] [facility] Left: Foot [employer] [id number] / / [employer] [id number] Plate Bone Medline Unite 5 D Medium Metatarsophalangeal Left Fusion Nonsterile - [id number] Implanted:Qty: 1 on 12/05/2019 by John Paul Springer MD at [facility] Explanted:Qty: 1 on 06/23/[address] [facility] Left: Foot [employer] [id number] / / [employer] [id number] Screw 16mm 2.7mm Bone Medline Unite Foot Ankle Lock - [id number] Implanted:Qty: 1 on 12/05/2019 by John Paul Springer MD at [facility] Explanted:Qty: 1 on 06/23/[address] [facility] Left: Foot [employer] [id number] / / [employer] [id number] Screw 12mm 3.5mm Bone Medline Unite Foot Ankle Lock - [id number] Implanted:Qty: 1 on 12/05/2019 by John Paul Springer MD at [facility] Explanted:Qty: 1 on 06/23/[address] [facility] Left: Foot [employer] [id number] / / [employer] [id number] Screw 18mm 3.5mm Bone Medline Unite Foot Ankle Lock - [id number] Implanted:Qty: 3 on 12/05/2019 by John Paul Springer MD at [facility] Explanted:Qty: 3 on 06/23/[address] [facility] Left: Foot [employer] [id number] / / Procedures Procedure Name Priority Date/Time Associated Diagnosis Comments IGG Routine 01/07/2025 12:17 PM CDT Hypogammaglobulin emia SCREENING MAMMOGRAM BILATERAL W DONY Schedule Routine, Read Routine (OP Routine) 06/01/2023 12:25 PM MICROSTRATEGY REPORTS DEVELOPER Screening mammogram, encounter for DEXA AXIAL SKELETON BONE DENSITY 1 OR MORE SITES Schedule Routine, Read Routine (OP Routine) 01/13/2022 1:17 PM CDT Asymptomatic menopausal state COLONOSCOPY REPORT 05/23/2017 from Last 3 Months or Most Recently Relevant to Health Maintenance Results * IgG (01/07/2025 12:17 PM CDT) Immunoglobulin G 944 700 - 1,600 mg/dL Comment:Testing performed by : [facility], [address] [place] [address]., [id number] Blood 01/07/2025 12:1 7 PM CDT 01/07/2025 8:39 PM CDT [facility] Micheal Fithc MD LAB BLOOD ORDERABLES Final Res ult [facility] [address] [facility]. Department [place] [address] * Screening Mammogram Bilateral W Dony (06/01/2023 12:25 PM MICROSTRATEGY REPORTS DEVELOPER) Anatomical Region Laterality Modality Breast Bilateral Mammography Impressions 06/01/2023 1:40 PM MICROSTRATEGY REPORTS DEVELOPER BI-RADS ATLAS category (overall): 2 - Benign There is no mammographic evidence of malignancy. A 1 year screening mammogram is recommended. The patient has been or will be contacted. We recommend annual screening mammography for women at average risk of breast cancer beginning at age 40, based on guidelines of the [employer] (ACR Practice Parameter for the Performance of Screening and Diagnostic Mammography) and [employer]. For women with and elevated risk of breast cancer, please refer to the ACR Practice Parameter for specific screening recommendations. The patient will be entered into a reminder system with a target due date of 1 year for her next screening exam. Narrative 06/01/2023 1:40 PM MICROSTRATEGY REPORTS DEVELOPER Screening Mammogram Bilateral W Dony: 06/01/23 The [...] F with given history of screening. Postmenopausal Audio Production Manager/Model: [employer] A (S/N [id number]) CLINICAL INFORMATION: Current height: 61 inches Maximum [...] Sriram Casiano M.D. MF: VICTORINO Report ID: [id number] Reading Location: [place] [address] Procedure Note Sriram Casiano MD - 01/13/2022 EXAM DESCRIPTION: DEXA AXIAL SKELETON BONE DENSITY 1 OR MORE SITES REASON FOR STUDY: 77 y/o year old F with given history ofscreening. Postmenopausal Audio Production Manager/Model: K[employer] Horizon A (S/N [id number]) CLINICAL INFORMATION: Current height: 61 inches Maximum [...] Sriram Casiano M.D. MF: VICTORINO Report ID: [id number] Reading Location: [place] [address] Naila Marroquin MD IMG DXA PROCEDURES Final R esult * COLONOSCOPY REPORT (05/23/2017) Anatomical Region Laterality Modality Other us Provider Scanning GI PROCEDURE ORDERABLES Final Result from Last 3 Months or Most Recently Relevant to Health Maintenance Insurance [facility] MED[facility]ARE MEDICARE [facility] MEDICARE [employer] MEDICARE [employer] Advance Directives For more information, please contact: [phone] * Full Code (Latest Code Status on File) Date Activated Date Inactivated Comments 01/24/2023 1:55 PM 01/27/2023 8:39 PM * Full Code Date Activated Date Inactivated Comments 11/21/2020 12:31 AM 11/23/2020 11:07 PM * Full Code Date Activated Date Inactivated Comments 07/06/2018 9:12 AM 07/06/2018 2:51 PM * Full Code Date Activated Date Inactivated Comments 06/05/2018 9:28 AM 06/05/2018 3:17 PM Care Teams Systems Support Specialist Relationship Specialty Start Date End Date Naila Marroquin MD [address] [facility] [address] [place] [address] PCP - General 07/21/17 Janine Bañuelos RN Licensed Practical Nurse 08/02/18 John Paul Springer MD Consulting Physician Orthopedic Surgery 12/05/19 Sindy [place], RN Registered Nurse Pulmonary Disease 03/23/22
--- OUTSIDE RECORDS SUMMARY | 2025-01-08 08:38 | XMS_ITS | Encounter Summary ---
Author Organization [facility] Address [address] [place] [address] Phone Care Team Providers Care Radial Drill Press Operator For Plastic Name Role Phone Naila Marroquin MD Primary Care Provider [phone] Janine Bañuelos RN Unavailable Unavai John Paul David MD Unavailable [phone] Sindy Armstrong RN Unavailable Darlene vailable Encounter Details Date Type Department Care Team (Latest Contact Info) Description 08/06/2024 Orders Only [facility] Scanning, Provider [...] any clubs o r organizations such as confucianist groups, unions, fraternal or athletic groups, or [...] on file Legal Sex Female 8:29 PM VEHICLE MODIFICATION TECHNICIAN Gender Identity Female 09/24/2021 1:08 PM CDT Sexual Orientation Not on file Occupation Industry Job Start Date Job End Date Retired Not on file Not on file Not on file documented as of this encounter Plan of Treatment Not on file documented as of this encounter Procedures Procedure Name Priority Date/Time Associated Diagnosis Comments SCAN - RADIOLOGY/IMAGING 08/06/2024 documented in this encounter Results * SCAN - RADIOLOGY/IMAGING (08/06/2024) Anatomical Region Laterality Modality Other us Provider Scanning Final Result documented in this encounter Visit Diagnoses Not on filedocumented in this encounter Care Teams Radial Drill Press Operator For Plastic Relationship Specialty Start Date End Date Naila Marroquin MD [address] [facility] 100 [place] [address] PCP - General 07/21/17 Janine Bañuelos, biomass technician Nurse 08/02/18 John Paul Springer MD Consulting Physician Orthopedic Surgery 12/05/19 Sindy Armstrong, RN Registered Nurse Pulmonary Disease 03/23/22 documented as of this encounter
--- OUTSIDE RECORDS SUMMARY | 2025-01-08 08:38 | XMS_ITS | Clinical Summary ---
Author Organization [facility] Address [address] [place] [address] Care Team Providers Care Baseball Sewer Hand Name Role Phone Unavailable Primary Care Provider Unavailabl e Social History Tobacco Use Types Packs/Day Years Used Date Smoking Tobacco: Never Assessed Comments Unknown Sex and Gender Information Value Date Recorded Sex Assigned at Not on file Legal Sex Female 10:16 PM FOUR H AGENT Gender Identity Not on file Sexual Orientation Not on file Plan of Treatment Health Maintenance Due Date Last Done Comments Hepatitis C Virus (HCV) Screening 1945 TdaP Immunization 1945 Pneumococcal Immunization (5 0+ years) (1 of 1 - PCV) 1997 Zoster Immunization (1 of 2) 1997 Respiratory Syncytial Virus (RSV) Immunization (Adult) (1 - 1-dose 75+ series) 2022 SARS-COV-2 Immunization (2 - season) 2023 07/06/2020 Influenza Immunization (#1) 2024 02/10/2021 Hepatitis B Immunization Aged Out No longer eligible based on patient's age to complete this topic Human Papillomavirus (HPV) Immunization Aged Out No longer eligible b ased on patient's age to complete this topic Meningococcal Immunization (ACWY) Aged Out No longer eligible based on patient's age to complete this topic Rotavirus Immunization Aged Out No lo nger eligible based on patient's age to complete this topic
--- OUTSIDE RECORDS SUMMARY | 2025-01-08 08:38 | XMS_ITS | Encounter Summary ---
Author Organization [facility] Address [address] [place] [address] Phone Care Team Providers Care Clinical Material Handler Name Role Phone Naila Marroquin MD Primary Care Provider [phone] Janine Bañuelos RN Unavailable Unavai John Paul David MD Unavailable [phone] Sindy Armstrong RN Unavailable Darlene vailable Encounter [...] on file Legal Sex Female 8:29 PM FITNESS COORDINATOR Gender Identity Female 09/24/2021 1:08 PM [...] COVID: Suspected 05/28/2021 05/28/2021 05/28/2021 3:42 PM FITNESS COORDINATOR COVID: Suspected 01/24/2023 01/24/2023 01/24/2023 1:28 AM CDT COVID: Suspected 01/24/2023 01/25/2023 01/25/2023 11:46 AM CDT COVID19 Comment:COVID + on home test. Symptoms started 3 days ago. 05/06/2023 05/06/2023 05/16/2023 3:05 AM FITNESS COORDINATOR COVID: Recovered Comment:Added based on recent COVID infection. 05/16/2023 05/23/2023 08/14/2023 3:05 AM C DT documented as of this encounter Care Teams Clinical Material Handler Relationship Specialty Start Date End Date Naila Marroquin MD [address] [facility] 100 [place] [address] PCP - General 07/21/17 Janine Bañuelos, bull bucker Nurse 08/02/18 John Paul Springer MD Consulting Physician Orthopedic Surgery 12/05/19 Sindy Armstrong, RN Registered Nurse Pulmonary Disease 03/23/22 documented as of this encounter
[2025-01-08 08:51] VITALS: BP 103/60; PULSE 67; RESP 18; TEMP 36.7; O2SAT 95
[2025-01-08 09:43] LABS: Hematocrit 38.0 % (37.0-47.0); Hemoglobin 12.0 g/dL (12.0-15.0); Immature Granulocyte Percent A 0.1 % (0-0.5); Lymphocytes Absolute Auto 1.14 K/mm3 (0.9-3.2); Mean Corpuscular HGB Conc 31.6 g/dl (32-36); Mean Corpuscular Hemoglobin 26.9 pg (26-34); Mean Corpuscular Volume 85.2 fl (80-100); Nucleated Red Blood Cells Absolute Auto 0.000 K/mm3 (0.0-0.012); Nucleated Red Blood Cells Perc 0.0 % (0.0-0.2); Platelet Count Result 186 k/mm3 (150-375); Red Blood Count 4.46 M/mm3 (4.2-5.4); White Blood Count 7.8 K/mm3 (4.5-10.0)
[2025-01-08 09:54] LABS: Alanine Aminotransferase 32 U/L (6-35); Albumin Level 4.0 g/dL (3.5-5.1); Alkaline Phosphatase 45 U/L (38-126); Anion Gap 6 mmol/L (4-12); Aspartate Amino Transferase 39 U/L (14-36); Bilirubin,Total 0.4 mg/dL (0.2-1.3); Blood Urea Nitrogen 8 mg/dL (7-17); Calcium 8.4 mg/dL (8.4-10.2); Carbon Dioxide 26 mmol/L (22-30); Chloride 106 mmol/L (98-107); Estimated CRCL calculation 59 ml/min; Estimated Glomerular Filt Rate > 60; Glucose 105 mg/dL (65-110); Lipase 69 U/L (23-300); Potassium 3.9 mmol/L (3.4-5.0); Sodium 138 mmol/L (137-145); Total Protein 7.9 g/dL (6.3-8.2)
[2025-01-08 09:55] LABS: INR 1.0; Prothrombin Time 13.8 Seconds (11.1-14.7)
[2025-01-08 09:56] LABS: Partial Thromboplastin Time 26.6 Seconds (22.3-36.8)
--- OUTSIDE RECORDS SUMMARY | 2025-01-08 09:56 | XMS_ITS | Encounter Summary ---
Author Organization [facility] Address [address] [place] [address] Phone Care Team Providers Care Social Work Administrator Name Role Phone Debora Fitch MD Primary Care Provider [phone] Naila Marroquin MD Primary Care Provider [phone] Debora Fitch MD Primary Care Provider Naila Marroquin MD Primary Care Provider [phone] Debora Fitch MD Primary Care Provider [phone] Naila Marroquin MD Primary Care Provider [phone] Debora Fitch MD Primary Care Provider [phone] Naila Marroquin MD Primary Care Provider [phone] Debora Fitch MD Primary Care Provider [phone] Naila Marroquin MD Primary Care Provider [phone] Janine Bañuelos RN Unavailable John Paul Lucas MD Unavailable [phone] Sindy Armstrong RN Unavailable Darlene vailable Encounter [...] on file Legal Sex Female 8:29 PM REAMER HAND Gender Identity Female 09/24/2021 1:08 PM CDT [...] COVID: Suspected 05/28/2021 05/28/2021 05/28/2021 3:42 PM REAMER HAND COVID: Suspected 01/24/2023 01/24/2023 01/24/2023 1:28 AM CDT COVID: Suspected 01/24/2023 01/25/2023 01/25/2023 11:46 AM CDT COVID19 Comment:COVID + on home test. Symptoms started 3 days ago. 05/06/2023 05/06/2023 05/16/2023 3:05 AM REAMER HAND COVID: Recovered Comment:Added based on recent COVID infection. 05/16/2023 05/23/2023 08/14/2023 3:05 AM C DT documented as of this encounter Care Teams Social Work Administrator Relationship Specialty Start Date End Date Debora Fitch MD [address] [facility] [address] [place] [address] PCP - General 01/27/17 02/06/17 Naila Marroquin MD [address] [place] [address] PCP - General 02/07/17 02/13/17 Debora Fitch MD [address] [address] PCP - General 02/14/17 04/04/17 Naila Marroquin MD [address] [place] [address] PCP - General 04/05/17 04/05/17 Debora Fitch MD [address] [facility] [address] [address] PCP - General 04/06/17 05/18/17 Naila Marroquin MD [address] [place] [address] PCP - General 05/19/17 06/11/17 Debora Fitch MD [address] [facility] [address] [address] PCP - General 06/12/17 06/14/17 Naila Marroquin MD [address] [place] [address] PCP - General 06/15/17 07/12/17 Debora Fitch MD [address] [address] PCP - General 07/13/17 07/20/17 Naila Marroquin MD [address] [facility] [address] [place] [address] PCP - General 07/21/17 Janine Bañuelos, echocardiologist Nurse 08/02/18 John Paul Springer MD Consulting Physician Orthopedic Surgery 12/05/19 Sindy Armstrong, RN Registered Nurse Pulmonary Disease 03/23/22 documented as of this encounter
--- OUTSIDE RECORDS SUMMARY | 2025-01-08 09:56 | XMS_ITS | Clinical Summary ---
Author Organization [facility] Address [address] [place] [address] Care Team Providers Care Manager Of Business Operations Name Role Phone Naila Marroquin MD Primary Care Provider [phone] Janine Bañuelos RN Unavailable Unajose martini John Paul David MD Unavailable [phone] Sindy Armstrong RN Unavailable Darlene vailable Allergies [...] (06/12/2020): Added automatically from request for surgery [id number] Hallux valgus of left foot 11/05/2019 Overview (11/05/2019): Added automatically from request for surgery [id number] Non-allergic rhinitis 01/02/2018 Seasonal allergic rhinitis due [...] artery disease of n ative artery of [place] heart with stable angina pectoris ([facility]) 04/06/2015 Overview (08/04/2016): Coronary artery disease involving [place] coronary artery of [place] heart with angina pectoris Irregular heart rhythm 04/06/2015 Overview (08/04/2016): Irregular heart beat Hypogammaglobulinemia 11/20/2014 Overview (10/25/2019): Hypogammaglobulinemia Depression 10/21/2014 Overview (08/04/2016): Depression ILD (interstitial lung disease) 06/26/2014 Resolved Problems Problem Noted Date Diagnosed Date Resolved Date CAP (community acquired pneumonia) 01/24/2023 07/19/2023 Cough 04/18/2019 11/21/2020 Assessment & Plan (04/18/2019 2:04 PM HEALTH SUPPORT SPECIALIST): The patient has chronic cough is likely [...] (07/04/2018): Added automatically from request for surgery [id number] Gastroesophageal reflux dise ase with esophagitis 04/02/2018 11/21/2020 Overview (04/02/2018): Added automatically from request for surgery [id number] 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 04/02/2018 11/21/2020 Overview (04/02/2018): Added automatically from request for surgery [id number] Pain of right lower extremity 10/02/2017 11/21/2020 [...] - 01/07/2025 11:59 PM CDT Hospital Encounter [facility] [address] [place] [address] Hypogammaglobulinemia Discharge Disposition: Discharge to home or self care 01/07/2025 12:30 PM CDT Infusion [facility] [address] [place] [address] [address] [place] [address] Hypogammaglobulinemia (Primary Dx) 12/10/2024 12:30 PM CDT Infusion [facility] [address] [place] [address] [address] [place] [address] Hypogammaglobulinemia (Primary Dx) 11/12/2024 12:30 PM CDT Infusion [facility] [address] [place] [address] [address] [place] [address] Hypogammaglobulinemia (Primary Dx) 10/15/2024 12:30 PM CDT Infusion [facility] [address] [place] [address] [address] [place] [address] Hypogammaglobulinemia (Primary Dx) from Last 3 Months [...] often do you attend chur ch or baptist services? Never 01/25/2023 Do you belong to [...] place to sleep or slept in a fdc (including now)? No 01/25/2023 Personal Safety Answer Date Recorded Have you ever been in or are you currently in a harmful physical or emotional relationship or is someone making you feel afraid or unsafe? Denies 05/06/2023 Comments No Sex and Gender Information Value Date Recorded Sex Assigned at Not on file Legal Sex Female 8:29 PM HEALTH SUPPORT SPECIALIST Gender Identity Female 09/24/2021 1:08 PM [...] history exists Medical Devices Implanted Type Area Accountancy Professor Device Identifier Shelf Expiration Date Model / Serial / Lot Nerve Stimulator-Righ t Hip Description:Not active [employer] [id number] Bit 2.5mm Drill Cannulated Ao Quick Connect Color Coded - [id number] Implanted:Qty: 1 on 12/05/2019 at [facility] Left: Foot [employer] [id number] / / [employer] [id number] Screw Bone Medline Unite L18mm Od3.5mm Foot Ankle Nonlock - [id number] Implanted:Qty: 1 on 12/05/2019 by John Paul Springer MD at [facility] [employer] [id number] / / [employer] [id number] Screw Bone Medline Unite L38mm Od3.5mm Head Nonsterile - [id number] Implanted:Qty: 1 on 12/05/2019 by John Paul Springer MD at [facility] Left: Foot [employer] [id number] / / Explanted Type Area Accountancy Professor Device Identifier Shelf Expiration Date Model / Serial / Lot [employer] [id number] Screw Bone Medline Unite L12mm Od2.7mm Foot Ankle Nonlock - [id number] Implanted:Qty: 1 Explanted:Qty: 1 on 12/05/2019 at [facility] Left: Foot [employer] [id number] / / [employer] [id number] Screw Bone Medline Unite L14mm Od2.7mm Foot Ankle Nonlock - [id number] Explanted:Qty: 1 on 12/05/2019 at [facility] Left: Foot [employer] [id number] / / [employer] [id number] Pin Fixation Medline Unite L10mm Od1.1mm - [id number] Implanted:Qty: 2 on 12/05/2019 at [facility] Explanted:Qty: 2 on 06/23/2020 at [facility] Left: Foot [employer] [id number] / / [employer] [id number] Plate Bone Medline Unite 5 D Medium Metatarsophalangeal Left Fusion Nonsterile - [id number] Implanted:Qty: 1 on 12/05/2019 by John Paul Springer MD at [facility] Explanted:Qty: 1 on 06/23/2020 at [facility] Left: Foot [employer] [id number] / / [employer] [id number] Screw 16mm 2.7mm Bone Medline Unite Foot Ankle Lock - [id number] Implanted:Qty: 1 on 12/05/2019 by John Paul Springer MD at [facility] Explanted:Qty: 1 on 06/23/2020 at [facility] Left: Foot [employer] [id number] / / [employer] [id number] Screw 12mm 3.5mm Bone Medline Unite Foot Ankle Lock - [id number] Implanted:Qty: 1 on 12/05/2019 by John Paul Springer MD at [facility] Explanted:Qty: 1 on 06/23/2020 at [facility] Left: Foot [employer] [id number] / / [employer] [id number] Screw 18mm 3.5mm Bone Medline Unite Foot Ankle Lock - [id number] Implanted:Qty: 3 on 12/05/2019 by John Paul Springer MD at [facility] Explanted:Qty: 3 on 06/23/2020 at [facility] Left: Foot [employer] [id number] / / Procedures Procedure Name Priority Date/Time Associated Diagnosis Comments IGG Routine 01/07/2025 12:17 PM CDT Hypogammaglobulin emia SCREENING MAMMOGRAM BILATERAL W DONY Schedule Routine, Read Routine (OP Routine) 06/01/2023 12:25 PM HEALTH SUPPORT SPECIALIST Screening mammogram, encounter for DEXA AXIAL SKELETON BONE DENSITY 1 OR MORE SITES Schedule Routine, Read Routine (OP Routine) 01/13/2022 1:17 PM CDT Asymptomatic menopausal state COLONOSCOPY REPORT 05/23/2017 from Last 3 Months or Most Recently Relevant to Health Maintenance Results * IgG (01/07/2025 12:17 PM CDT) Immunoglobulin G 944 700 - 1,600 mg/dL Comment:Testing performed by : [facility], [address] [place] [address]., [id number] Blood 01/07/2025 12:1 7 PM CDT 01/07/2025 8:39 PM CDT [facility] Micheal Fitch MD LAB BLOOD ORDERABLES Final Res ult [facility] [address] [facility]. Department [place] [address] * Screening Mammogram Bilateral W Dony (06/01/2023 12:25 PM HEALTH SUPPORT SPECIALIST) Anatomical Region Laterality Modality Breast Bilateral Mammography Impressions 06/01/2023 1:40 PM HEALTH SUPPORT SPECIALIST BI-RADS ATLAS category (overall): 2 - Benign There is no mammographic evidence of malignancy. A 1 year screening mammogram is recommended. The patient has been or will be contacted. We recommend annual screening mammography for women at average risk of breast cancer beginning at age 40, based on guidelines of the [employer] [place] [employer] (ACR Practice Parameter for the Performance of Screening and Diagnostic Mammography) and [place]. For women with and elevated risk of breast cancer, please refer to the ACR Practice Parameter for specific screening recommendations. The patient will be entered into a reminder system with a target due date of 1 year for her next screening exam. Narrative 06/01/2023 1:40 PM HEALTH SUPPORT SPECIALIST Screening Mammogram Bilateral W Dony: 06/01/23 The [...] F with given history of screening. Postmenopausal Accountancy Professor/Model: [employer]Interact A (S/N [id number]) CLINICAL INFORMATION: Current height: 61 inches Maximum [...] Sriram Casiano M.D. MF: VICTORINO Report ID: [id number] Reading Location: [place] [address] Procedure Note Sriram Casiano MD - 01/13/2022 EXAM DESCRIPTION: DEXA AXIAL SKELETON BONE DENSITY 1 OR MORE SITES REASON FOR STUDY: 77 y/o year old F with given history ofscreening. Postmenopausal Accountancy Professor/Model: [employer] Horizon A (S/N [id number]) CLINICAL INFORMATION: Current height: 61 inches Maximum [...] Sriram Casiano M.D. MF: VICTORINO Report ID: [id number] Reading Location: [place] [address] Naila Marroquin MD IMG DXA PROCEDURES Final R esult * COLONOSCOPY REPORT (05/23/2017) Anatomical Region Laterality Modality Other us Provider Scanning GI PROCEDURE ORDERABLES Final Result from Last 3 Months or Most Recently Relevant to Health Maintenance Insurance [facility] MEDICARE MEDICARE [facility] MEDICARE [employer] MEDICARE [employer] [place] MEDICARE [employer] [place] Advance Directives For more information, please contact: [phone] * Full Code (Latest Code Status on File) Date Activated Date Inactivated Comments 01/24/2023 1:55 PM 01/27/2023 8:39 PM * Full Code Date Activated Date Inactivated Comments 11/21/2020 12:31 AM 11/23/2020 11:07 PM * Full Code Date Activated Date Inactivated Comments 07/06/2018 9:12 AM 07/06/2018 2:51 PM * Full Code Date Activated Date Inactivated Comments 06/05/2018 9:28 AM 06/05/2018 3:17 PM Care Teams Manager Of Business Operations Relationship Specialty Start Date End Date Naila Marroquin MD [address] [facility] 100 [place] [address] PCP - General 07/21/17 Janine Bañuelos RN Licensed Practical Nurse 08/02/18 John Paul Springer MD Consulting Physician Orthopedic Surgery 12/05/19 Sindy Armstrong, RN Registered Nurse Pulmonary Disease 03/23/22
--- OUTSIDE RECORDS SUMMARY | 2025-01-08 09:56 | XMS_ITS | Encounter Summary ---
Author Organization [facility] Address [address] [address] Care Team Providers Care Mains And Service Supervisor Name Role Phone Debora Fitch MD Primary Care Provider [phone] Miscellaneous, Not In File Primary Care Provider Unavailable Debora Fitch MD Primary Care Provider Naila Marroquin MD Primary Care Provider [phone] Debora Fitch MD Primary Care Provider Naila Marroquin MD Primary Care Provider Debora Fitch MD Primary Care Provider [phone] Naila Marroquin MD Primary Care Provider Debora Fitch MD Primary Care Provider Naila Marroquin MD Primary Care Provider Debora Fitch MD Primary Care Provider [phone] Naila Marroquin MD Primary Care Provider Debora Fitch MD Primary Care Provider [phone] Naila Marroquin MD Primary Care Provider Debora Fitch MD Primary Care Provider Naila Marroquin MD Primary Care Provider [phone] Debora Fitch MD Primary Care Provider [phone] Naila Marroquin MD Primary Care Provider [phone] Janine Bañuelos RN Unavailable UnaJohn Paul Sawant MD Unavailable [phone] Sindy Armstrong RN Unavailable Darlene vailable Encounter Details Date Type Department Care Team (Late st Contact Info) Description 05/19/2016 Orders Only [facility] Provider, MD Sherif [address] [place] [address] Social History Tobacco Use Types Packs/Day Years Used Date Smoking Tobacco: Former Cigarettes Q uit: 05/01/1974 Alcohol Use Standard Drinks/Week Comments Yes 0 (1 standard drink = 0.6 oz pur e alcohol) Comments Unknown Sex and Gender Information Value Date Recorded Sex Assigned at Not on file Legal Sex Female 8:29 PM OPERATIONS CONTROLLER Gender Identity Female 09/24/2021 1:08 PM CDT [...] COVID: Suspected 05/28/2021 05/28/2021 05/28/2021 3:42 PM OPERATIONS CONTROLLER COVID: Suspected 01/24/2023 01/24/2023 01/24/2023 1:28 AM CDT COVID: Suspected 01/24/2023 01/25/2023 01/25/2023 11:46 AM CDT COVID19 Comment:COVID + on home test. Symptoms started 3 days ago. 05/06/2023 05/06/2023 05/16/2023 3:05 AM OPERATIONS CONTROLLER COVID: Recovered Comment:Added based on recent COVID infection. 05/16/2023 05/23/2023 08/14/2023 3:05 AM C DT documented as of this encounter Care Teams Mains And Service Supervisor Relationship Specialty Start Date End Date Debora Fitch MD [address] [address] PCP - General 08/19/16 11/03/16 Miscellaneous, Not In File PCP - General 11/04/16 11/07/16 Debora Fitch MD [address] [address] PCP - General 11/08/16 11/17/16 Naila Marroquin MD [address] [place] [address] PCP - General 11/18/16 11/21/16 Debora Fitch MD [address] [address] PCP - General 11/22/16 11/22/16 Naila Marroquin MD [address] [place] [address] PCP - General 11/23/16 11/26/16 Debora Fitch MD [address] [address] PCP - General 11/27/16 01/03/17 Naila Marroquin MD [address] [place] [address] PCP - General 01/04/17 01/26/17 Debora Fitch MD [address] [facility] [place] [address] PCP - General 01/27/17 02/06/17 Naila Marroquin MD [address] [place] [address] PCP - General 02/07/17 02/13/17 Debora Fitch MD [address] [facility] [address] [address] PCP - General 02/14/17 04/04/17 Naila Marroquin MD [address] [place] [address] PCP - General 04/05/17 04/05/17 Debora Fitch MD [address] [facility] [address] [address] PCP - General 04/06/17 05/18/17 Naila Marroquin MD [address] [place] [address] PCP - General 05/19/17 06/11/17 Debora Fitch MD [address] [address] PCP - General 06/12/17 06/14/17 Naila Marroquin MD [address] [place] [address] PCP - General 06/15/17 07/12/17 Debora Fitch MD [address] [facility] [address] [place] [address] PCP - General 07/13/17 07/20/17 Naila Marroquin MD [address] [place] [address] PCP - General 07/21/17 Janine Bañuelos, municipal court judge Nurse 08/02/18 John Paul Springer MD Consulting Physician Orthopedic Surgery 12/05/19 Sindy Armstrong, ALEXANDRA Registered Nurse Pulmonary Disease 03/23/22 documented as of this encounter
--- OUTSIDE RECORDS SUMMARY | 2025-01-08 09:56 | XMS_ITS | Clinical Summary ---
Author Organization [facility] Address [address] [place] [address] Care Team Providers Care Pile Driver Engineer Name Role Phone Noel Gomez DO Primary Care Provider [phone] Source Comments [facility],non-owned Affiliates and Associated Physician Practices is amultiple site organization consisting of ambulatory clinics and hospital sitesin [place], [place], [place] and [place]. This disclosure is being madepursuant to the Care Everywhere program and may not contain all information available regarding this patient. Last updated 18.[facility] Allergies Active Allergy Reactions Criticality Noted Date [...] on file Legal Sex Female 6:15 AM VERIFIER OPERATOR Gender Identity Not on file Sexual Orientation Not on file Last Filed Vital Signs Vital Sign Reading Time Taken Comments Blood Pressure 124/70 06/12/2013 1:29 PM VERIFIER OPERATOR Pulse 86 07/03/2012 4:20 PM VERIFIER OPERATOR Temperature 36.6 C (97.8 F) 07/03/2012 4:20 PM VERIFIER OPERATOR Respiratory Rate 18 07/03/2012 4:20 PM VERIFIER OPERATOR Oxygen Saturation 99% 07/03/2012 4:20 PM VERIFIER OPERATOR Inhaled Oxygen Concentration - - Weight 60.8 kg (134 lb) 06/12/2013 1:29 PM VERIFIER OPERATOR Height 157.5 cm (5' 2) 06/12/2013 1:29 PM VERIFIER OPERATOR Body Mass Index 24.51 06/12/2013 1:29 PM VERIFIER OPERATOR Plan of Treatment Health Maintenance Due Date [...] this topic Medical Devices Implanted Type Area Display Fabricator Device Identifier Shelf Expiration Date Model / Serial / Lot Slng Lynx Mid-Ureth Implanted:Qty: 1 on 07/03/2012 by Erika Hernández MD at [facility] N/A[facility] 03/31/2015 [id number] / / [id number] Insurance MEDICARE [facility] [place] MEDICARE [facility] [place] Care Teams Pile Driver Engineer Relationship Specialty Start Date End Date Noel Gomez DO PCP - General Internal Medicine 07/03/12
--- OUTSIDE RECORDS SUMMARY | 2025-01-08 09:56 | XMS_ITS | Encounter Summary ---
Author Organization [facility] Address [address] [place] [address] Phone Care Team Providers Care Lead Nuclear Medicine Technologist Name Role Phone Naila Marroquin MD Primary Care Provider [phone] Janine Bañuelos RN Unavailable Unavai John Paul David MD Unavailable [phone] Sindy Armstrong RN Unavailable Darlene vailable Encounter [...] on file Legal Sex Female 8:29 PM PHOTOGRAPHIC PRESS SCREWMAKER Gender Identity Female 09/24/2021 1:08 PM CDT [...] COVID: Suspected 05/28/2021 05/28/2021 05/28/2021 3:42 PM PHOTOGRAPHIC PRESS SCREWMAKER COVID: Suspected 01/24/2023 01/24/2023 01/24/2023 1:28 AM CDT COVID: Suspected 01/24/2023 01/25/2023 01/25/2023 11:46 AM CDT COVID19 Comment:COVID + on home test. Symptoms started 3 days ago. 05/06/2023 05/06/2023 05/16/2023 3:05 AM PHOTOGRAPHIC PRESS SCREWMAKER COVID: Recovered Comment:Added based on recent COVID infection. 05/16/2023 05/23/2023 08/14/2023 3:05 AM C DT documented as of this encounter Care Teams Lead Nuclear Medicine Technologist Relationship Specialty Start Date End Date Naila Marroquin MD [address] [facility] [address] [place] [address] PCP - General 07/21/17 Janine Bañuelos, sports book server Nurse 08/02/18 John Paul Springer MD Consulting Physician Orthopedic Surgery 12/05/19 Sindy Armstrong, RN Registered Nurse Pulmonary Disease 03/23/22 documented as of this encounter
--- OUTSIDE RECORDS SUMMARY | 2025-01-08 09:56 | XMS_ITS | Encounter Summary ---
Author Organization [facility] Address [address] [place] [address] Phone Care Team Providers Care Multicultural Internship Name Role Phone Naila Marroquin MD Primary Care Provider [phone] Janine Bañuelos RN Unavailable Unavai John Paul David MD Unavailable [phone] Sindy Armstrong RN Unavailable Darlene vailable Encounter [...] often do you attend chur ch or rastafari services? Never 01/25/2023 Do you belong to [...] place to sleep or slept in a skilled nursing (including now)? No 01/25/2023 Personal Safety Answer Date Recorded Have you ever been in or are you currently in a harmful physical or emotional relationship or is someone making you feel afraid or unsafe? Denies 05/06/2023 Comments No Sex and Gender Information Value Date Recorded Sex Assigned at Not on file Legal Sex Female 8:29 PM MEDICAL LEGAL INVESTIGATOR Gender Identity Female 09/24/2021 1:08 PM CDT [...] on filedocumented in this encounter Care Teams Multicultural Internship Relationship Specialty Start Date End Date Naila Marroquin MD [address] [facility] [address] [place] [address] PCP - General 07/21/17 Janine Bañuelos, mud mixer operator Nurse 08/02/18 John Paul Springer MD Consulting Physician Orthopedic Surgery 12/05/19 Sindy Armstrong, RN Registered Nurse Pulmonary Disease 03/23/22 documented as of this encounter
--- OUTSIDE RECORDS SUMMARY | 2025-01-08 09:56 | XMS_ITS | Encounter Summary ---
Author Organization [facility] Address [address] [address] Care Team Providers Care Orthopedic Dentist Name Role Phone Debora Fitch MD Primary Care Provider Miscellaneous, Not In File Primary Care Provider Unavailable Debora Fitch MD Primary Care Provider Naila Marroquin MD Primary Care Provider [phone] Debora Fitch MD Primary Care Provider Naila Marroquin MD Primary Care Provider Debora Fitch MD Primary Care Provider [phone] Naila Marroquin MD Primary Care Provider Debora Fitch MD Primary Care Provider Naila Marroquin MD Primary Care Provider Debora Fitch MD Primary Care Provider Naila Marroquin MD Primary Care Provider Debora Fitch MD Primary Care Provider Naila Marroquin MD Primary Care Provider Debora Fitch MD Primary Care Provider [phone] Naila Marroquin MD Primary Care Provider [phone] Debora Fitch MD Primary Care Provider [phone] Naila Marroquin MD Primary Care Provider [phone] Janine Bañuelos RN Unavailable UnaJohn Paul Sawant MD Unavailable [phone] Sindy Armstrong RN Unavailable Darlene vailable Encounter Details Date Type Department Care Team (Late st Contact Info) Description 06/03/2016 Orders Only [facility] Provider, MD Sherif [address] [place] [address] Social History Tobacco Use Types Packs/Day Years Used Date Smoking Tobacco: Former Cigarettes Q uit: 05/01/1974 Alcohol Use Standard Drinks/Week Comments Yes 0 (1 standard drink = 0.6 oz pur e alcohol) Comments Unknown Sex and Gender Information Value Date Recorded Sex Assigned at Not on file Legal Sex Female 8:29 PM BUTCHER Gender Identity Female 09/24/2021 1:08 PM CDT [...] COVID: Suspected 05/28/2021 05/28/2021 05/28/2021 3:42 PM BUTCHER COVID: Suspected 01/24/2023 01/24/2023 01/24/2023 1:28 AM CDT COVID: Suspected 01/24/2023 01/25/2023 01/25/2023 11:46 AM CDT COVID19 Comment:COVID + on home test. Symptoms started 3 days ago. 05/06/2023 05/06/2023 05/16/2023 3:05 AM BUTCHER COVID: Recovered Comment:Added based on recent COVID infection. 05/16/2023 05/23/2023 08/14/2023 3:05 AM C DT documented as of this encounter Care Teams Orthopedic Dentist Relationship Specialty Start Date End Date Debora Fitch MD [address] [address] PCP - General 08/19/16 11/03/16 Miscellaneous, Not In File PCP - General 11/04/16 11/07/16 Debora Fitch MD [address] [address] PCP - General 11/08/16 11/17/16 Naila Marroquin MD [address] [place] [address] PCP - General 11/18/16 11/21/16 Debora Fitch MD [address] [address] PCP - General 11/22/16 11/22/16 Naila Marroquin MD [address] [place] [address] PCP - General 11/23/16 11/26/16 Debora Fitch MD [address] [address] PCP - General 11/27/16 01/03/17 Naila Marroquin MD [address] [place] [address] PCP - General 01/04/17 01/26/17 Debora Fitch MD [address] [facility] [place] [address] PCP - General 01/27/17 02/06/17 Naila Marroquin MD [address] [place] [address] PCP - General 02/07/17 02/13/17 Debora Fitch MD [address] [facility] [address] [address] PCP - General 02/14/17 04/04/17 Naila Marroquin MD [address] [place] [address] PCP - General 04/05/17 04/05/17 Debora Fitch MD [address] [facility] [address] [address] PCP - General 04/06/17 05/18/17 Naila Marroquin MD [address] [place] [address] PCP - General 05/19/17 06/11/17 Debora Fitch MD [address] [address] PCP - General 06/12/17 06/14/17 Naila Marroquin MD [address] [place] [address] PCP - General 06/15/17 07/12/17 Debora Fitch MD [address] [facility] [address] [place] [address] PCP - General 07/13/17 07/20/17 Naila Marroquin MD [address] [place] [address] PCP - General 07/21/17 Janine Bañuelos, manager clinical services Nurse 08/02/18 John Paul Springer MD Consulting Physician Orthopedic Surgery 12/05/19 Sindy Armstrong, ALEXANDRA Registered Nurse Pulmonary Disease 03/23/22 documented as of this encounter
--- OUTSIDE RECORDS SUMMARY | 2025-01-08 09:57 | XMS_ITS | Clinical Summary ---
Author Organization [facility] Address [address] [place] [address] Care Team Providers Care Program Management Analyst Name Role Phone Unavailable Primary Care Provider Unavailabl e Social History Tobacco Use Types Packs/Day Years Used Date Smoking Tobacco: Never Assessed Comments Unknown Sex and Gender Information Value Date Recorded Sex Assigned at Not on file Legal Sex Female 10:16 PM MANAGER UROLOGY Gender Identity Not on file Sexual Orientation [...]
--- OUTSIDE RECORDS SUMMARY | 2025-01-08 09:57 | XMS_ITS | Encounter Summary ---
Author Organization [facility] Address [address] [place] [address] Phone Care Team Providers Care Farmworker Bulbs Name Role Phone Naila Marroquin MD Primary Care Provider [phone] Janine Bañuelos RN Unavailable Unavai John Paul David MD Unavailable [phone] Sindy Armstrong RN Unavailable Darlene vailable Encounter [...] on file Legal Sex Female 8:29 PM LECTURER IN COMPUTER SCIENCE Gender Identity Female 09/24/2021 1:08 PM CDT [...] COVID: Suspected 05/28/2021 05/28/2021 05/28/2021 3:42 PM LECTURER IN COMPUTER SCIENCE COVID: Suspected 01/24/2023 01/24/2023 01/24/2023 1:28 AM CDT COVID: Suspected 01/24/2023 01/25/2023 01/25/2023 11:46 AM CDT COVID19 Comment:COVID + on home test. Symptoms started 3 days ago. 05/06/2023 05/06/2023 05/16/2023 3:05 AM LECTURER IN COMPUTER SCIENCE COVID: Recovered Comment:Added based on recent COVID infection. 05/16/2023 05/23/2023 08/14/2023 3:05 AM C DT documented as of this encounter Care Teams Farmworker Bulbs Relationship Specialty Start Date End Date Naila Marroquin MD [address] [place] [address] PCP - General 07/21/17 Janine Bañuelos, carbon cleaner Nurse 08/02/18 John Paul Springer MD Consulting Physician Orthopedic Surgery 12/05/19 Sindy Armstrong, RN Registered Nurse Pulmonary Disease 03/23/22 documented as of this encounter
--- NOTE | 2025-01-08 12:21 | ED_ITS ---
HPI - General Adult General Chief complaint: Abdominal Pain Stated complaint: NO BM IN 6 WEEKS Time Seen by Provider: 01/08/25 09:01 History of Present Illness HPI narrative: 72-year-old female presented to the emergency department for evaluation for concern for constipation. Patient states she has not had a bowel movement the last month. After further discussed patient states that she has been having liquid stools. Patient has been taking daily MiraLax and prune juice in order to soften her stools. Patient is concerned that she is constipated But is only passing liquid stool. Patient does complain of lower abdominal bloating. Related Data Home Medications ?Medication ?Instructions ?Recorded ?Confirmed ?Last Taken ?Type albuterol sulfate 90 mcg/actuation 2 inh inhalation Q4 H 12/17/24 Unknown History aerosol inhaler (Ventolin HFA) alprazolam 1 mg tablet 1 mg PO TID PRN 12/17/24 Un known History aspirin 81 mg tablet 81 mg PO DAILY 12/17/24 Unk nown History cetirizine 10 mg tablet (Allergy 10 mg PO DAILY PRN Unknown History Relief (cetirizine)) ciclopirox 8 % topical solution 1 applic topical QHS 0 12/17/24 Unknown History cyanocobalamin (vitamin B-12) 100 mcg subcut MONTHLY 0 12/17/24 Unknown History 1,000 mcg/mL injection kit denosumab 60 mg/mL subcutaneous 60 mg subcut [id number] 12/17/24 Unknown History syringe (Prolia) diclofenac sodium 2 % topical ml topical 12/17/24 Unk nown History solution in packet ergocalciferol (vitamin D2) 50 mcg 50 mcg PO .every 2 weeks 12/17/24 Unknown History (2,000 unit) capsule ezetimibe 10 mg tablet 10 mg PO DAILY 12/17/24 Unk nown History famotidine 40 mg tablet 40 mg PO QHS 12/17/24 Unkno wn History fluticasone propionate 50 1 inh inhalation Q12H Unknown History mcg/actuation blister powder for inhalation isosorbide mononitrate 60 mg 60 mg PO DAILY 12/17/24 Unknown History tablet,extended release 24 hr levothyroxine 88 mcg capsule 88 mcg PO DAILY 12/17/24 Unknown History montelukast 10 mg tablet 10 mg PO DAILY 12/17/24 Unk nown History nitroglycerin 0.4 mg sublingual 0.4 mg sublingual Q5M PRN 12/17/24 Unknown History tablet ondansetron HCl 4 mg tablet 4 mg PO Q8H 12/17/24 Unkn own History pantoprazole 40 mg tablet,delayed 40 mg PO QAM 5 Unknown History release pregabalin 75 mg capsule 75 mg PO BID 12/17/24 Unkno wn History rosuvastatin 40 mg tablet 40 mg PO DAILY 12/17/24 Unk nown History sennosides 8.6 mg-docusate sodium 2 tab-cap PO QHS Unknown History 50 mg tablet sertraline 100 mg tablet 100 mg PO DAILY 12/17/24 Un known History syringe with needle, safety 3 mL 12/17/24 Unknown Hi story 25 gauge x 1 (BD Integra Syringe) temazepam 15 mg capsule 15 mg PO QHS PRN 12/17/24 U nknown History Allergies Allergy/AdvReac Type Severity Reaction Status Date / Time codeine Allergy Mild Unknown Verified 12/17/24 10:06 nitrofurantoin Allergy Mild Unknown Verified 12/17/24 10:06 oxcarbazepine Allergy Mild Unknown Verified 12/17/24 10:06 Review of Systems 2 Review of Systems: All systems reviewed & are unremarkable except as noted in HPI and below PMFSH Past Medical History Medical History High cholesterol Depression Anxiety Neuropathic pain Social History Social History Smoking status: Former smoker Smoking end date: 05/01/73 Alcohol intake: current Exam 2 Narrative: APPEARANCE: Well appearing, no pain, no distress, well-nourished. HEAD: normocephalic, atraumatic. EYES: PERRLA/EOMI, conjunctivae clear. NOSE: Normal no drainage EARS:TMS clear with good light reflex. THROAT: Pharynx clear, no exudate. NECK: Supple. No adenopathy, no masses. RESPIRATORY: Airway patent, respirations nonlabored. Clear to auscultation bilaterally, no rales, rhonchi, wheezing. CARDIOVASCULAR: Regular rate and rhythm without murmurs rubs or gallops. ABDOMINAL: nonsurgical abdomen, soft nontender with normal bowel sounds. MUSCULOSKELETAL: Moves all extremities. Strength/ROM intact, No edema, No calf tenderness. NEURO: Alert. Cranial nerves II through XII intact. Good gait. Good coordination SKIN: Warm, dry. Normal Color Course Vital Signs Vital signs: Vital Signs Temperature 98.1 F 01/08/25 08:51 Pulse Rate 67 01/08/25 08:51 Respiratory Rate 18 01/08/25 08:51 Blood Pressure 103/60 01/08/25 08:51 Pulse Oximetry 95 01/08/25 08:51 Oxygen Delivery Room Air 01/08/25 08:51 Temperature 98.1 F 01/08/25 08:51 Pulse Rate 67 01/08/25 08:51 Respiratory Rate 18 01/08/25 08:51 Blood Pressure 103/60 01/08/25 08:51 Pulse Oximetry 95 01/08/25 08:51 Oxygen Delivery Room Air 01/08/25 08:51 Medical Decision Making [facility] Narrative Medical decision making narrative: 72-year-old female presents emergency department for evaluation for bloating and concern for constipation. Patient is currently afebrile with no leukocytosis hemoglobin 12.0. INR 1.1. No acute abnormalities on her CMP lactic acid is not elevated lipase within normal limits. CT scan does show fluid-filled bowels with no evidence of obstruction and no large formed stool burden was noted on the CT scan. Suspect patient is over treating her constipation and giving herself diarrhea. CT scan did show evidence of colitis without perforation. Patient will be started on Augmentin the emergency department and discharged home with antibiotics for colitis. Patient was advised to decrease her MiraLax and taking increase her water intake. All questions concerns were addressed and patient was comfortable the plan for discharge and close follow-up. Differential Diagnosis Differential Diagnosis: Colitis, diverticulitis, bowel obstruction, fecal impaction, enteritis, diarrhea Vital Signs Vital Signs: Vital Signs Temperature 98.1 F 01/08/25 08:51 Pulse Rate 67 01/08/25 08:51 Respiratory Rate 18 01/08/25 08:51 Blood Pressure 103/60 01/08/25 08:51 Pulse Oximetry 95 01/08/25 08:51 Oxygen Delivery Room Air 01/08/25 08:51 Temperature 98.1 F 01/08/25 08:51 Pulse Rate 67 01/08/25 08:51 Respiratory Rate 18 01/08/25 08:51 Blood Pressure 103/60 01/08/25 08:51 Pulse Oximetry 95 01/08/25 08:51 Oxygen Delivery Room Air 01/08/25 08:51 Lab Data Lab results reviewed: Yes I reviewed the patient's lab results. 01/08/25 09:37 01/08/25 09:37 Labs: Lab Results 01/08/25 Range/Units 09:37 WBC 7.8 (4.5-10.0) K/mm3 RBC 4.46 (4.2-5.4) M/mm3 Hgb 12.0 (12.0-15.0) g/dL Hct 38.0 (37.0-47.0) % MCV 85.2 (80-100) fl MCH 26.9 (26-34) pg MCHC 31.6 L (32-36) g/dl RDW 14.1 (11.5-14.5) % Plt Count 186 (150-375) k/mm3 MPV 10.8 H (7.4-10.4) fl Immature Gran % (Auto) 0.1 (0-0.5) % Neut % (Auto) 73.6 H (45.5-73.1) % Lymph % (Auto) 14.7 L (18.3-44.2) % Beauregard % (Auto) 7.0 (2.6-8.5) % Eos % (Auto) 4.0 (0-4.4) % Baso % (Auto) 0.6 (0.2-1.2) % Lymph # (Auto) 1.14 (0.9-3.2) K/mm3 Beauregard # (Auto) 0.5 (0.1-0.6) K/mm3 Eos # (Auto) 0.3 (0-0.3) K/mm3 Baso # (Auto) 0.1 (0.0-0.1) K/mm3 Abs Immat Gran (auto) 0.01 (0.00-0.031) K/mm3 Absolute Neuts (auto) 5.7 (1.3-6.7) K/mm3 Absolute Nucleated RBC 0.000 (0.0-0.012) K/mm3 Nucleated RBC % 0.0 (0.0-0.2) % PT 13.8 (11.1-14.7) Seconds INR 1.0 APTT 26.6 (22.3-36.8) Seconds Sodium 138 (137-145) mmol/L Potassium 3.9 (3.4-5.0) mmol/L Chloride 106 (98-107) mmol/L Carbon Dioxide 26 (22-30) mmol/L Anion Gap 6 (4-12) mmol/L BUN 8 (7-17) mg/dL Creatinine 0.52 L (0.7-1.0) mg/dL Estim Creat Clear Calc 59 ml/min Estimated GFR > 60 (59 - ) Glucose 105 (65-110) mg/dL Lactic Acid 1.0 (0.7-2.0) mmol/L Calcium 8.4 (8.4-10.2) mg/dL Total Bilirubin 0.4 (0.2-1.3) mg/dL AST 39 H (14-36) U/L ALT 32 (6-35) U/L Alkaline Phosphatase 45 (38-126) U/L Total Protein 7.9 (6.3-8.2) g/dL Albumin 4.0 (3.5-5.1) g/dL Lipase 69 (23-300) U/L Imaging Data Radiologist's impression: Impressions Abdomen/Pelvis CT 01/08/25 10:23 IMPRESSION: Mild probable colitis. Discharge Plan Discharge Clinical Impression: Colitis Patient Disposition: Home Condition: Stable Instructions: Antibiotic Form, Abdominal Pain (ED), Colitis (ED) Additional Instructions: decrease your MiraLax intake. Start taking the antibiotic as directed. Have close follow-up with your primary care physician. If you have any worsening symptoms then please call or return to the emergency department. Have close follow-up with GI. Patient Language: Tajik Prescriptions: New amoxicillin-pot clavulanate 875-125 mg tablet 1 tablet PO Q12H 7 Days Qty: 14 0RF No Action fluticasone propionate 50 mcg/actuation blister with device 1 inh inhalation Q12H cetirizine [Allergy Relief (cetirizine)] 10 mg tablet 10 mg PO DAILY PRN alprazolam 1 mg tablet 1 mg PO TID PRN ondansetron HCl 4 mg tablet 4 mg PO Q8H famotidine 40 mg tablet 40 mg PO QHS sennosides-docusate sodium 8.6-50 mg tablet 2 tab-cap PO QHS sertraline 100 mg tablet 100 mg PO DAILY ciclopirox 8 % solution 1 applic topical QHS isosorbide mononitrate 60 mg tablet extended release 24 hr 60 mg PO DAILY temazepam 15 mg capsule 15 mg PO QHS PRN pantoprazole 40 mg tablet,delayed release (DR/EC) 40 mg PO QAM nitroglycerin 0.4 mg tablet, sublingual 0.4 mg sublingual Q5M PRN Rx Instructions: do not exceed 3 doses per episode montelukast 10 mg tablet 10 mg PO DAILY aspirin 81 mg tablet 81 mg PO DAILY albuterol sulfate [Ventolin HFA] 90 mcg/actuation HFA aerosol inhaler 2 inh inhalation Q4H ezetimibe 10 mg tablet 10 mg PO DAILY rosuvastatin 40 mg tablet 40 mg PO DAILY (DME) BD Integra Syringe 3 mL 25 gauge x 1 syringe See Rx Instructions .ROUTE Rx Instructions: As directed pregabalin 75 mg capsule 75 mg PO BID levothyroxine 88 mcg capsule 88 mcg PO DAILY Prolia 60 mg/mL syringe 60 mg subcut [id number] cyanocobalamin (vitamin B-12) 1,000 mcg/mL kit 100 mcg subcut MONTHLY diclofenac sodium 2 % solution in packet topical ergocalciferol (vitamin D2) 50 mcg (2,000 unit) capsule 50 mcg PO .every 2 weeks Linzess 145 mcg capsule See Rx Instructions .ROUTE .COMPLEX Qty: 30 3RF Dose Instruction: TAKE 1 CAPSULE BY MOUTH DAILY Rx Instructions: TAKE 1 CAPSULE BY MOUTH DAILY Follow-up/Referrals: PHYSICIAN NOT ON STAFF,NONSTAFF [Primary Care Provider] Roman Maldonado MD [Physician, Gastroenterology]
--- NOTE | 2025-01-08 12:39 | PC.NURSE ---
Report called to Ralph Tomlinson at this time, discussed results, medications, and plan of care with her RN Katy.
== END 2025-01-08 12:50 | disposition home or self-care (01) ==
PROVIDERS: Emergency Provider Emergency Medicine
DX: K52.9 Noninfective gastroenteritis and colitis, unspecified (principal); E78.00 Pure hypercholesterolemia, unspecified; F32.A Depression, unspecified; F41.9 Anxiety disorder, unspecified; Z87.891 Personal history of nicotine dependence; Z79.899 Other long term (current) drug therapy; Z79.82 Long term (current) use of aspirin
CPT/HCPCS: 36415; 74177; 80053; 83605; 83690; 85025; 85610; 85730; 99284; A9270; Q9967

== ENCOUNTER 2025-02-05 01:28 | Day surgery (SDC) | payer MEDICARE, OTHER, SELFPAY ==
[2025-01-28 12:31] VITALS: BMI 20.9
[2025-02-05 11:29] VITALS: BP 130/60; PULSE 81; RESP 16; TEMP 37.2; O2SAT 95; BMI 21.0
[2025-02-05] MEDS: LACTATED RINGERS 1,000 ML 150 ML IV CONT (11:43)
--- NOTE | 2025-02-05 12:01 | WPDANESEPPF ---
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 Patient Data Age: 80 Gender: F Height: 1.57 m Weight: 52.2 kg Last Vital Signs Temp 37.2 C 02/05/25 11:29 Pulse 81 02/05/25 11:29 Resp 16 02/05/25 11:29 BP 130/60 02/05/25 11:29 Pulse Ox 95 02/05/25 11:29 O2 Del Method Room Air 02/05/25 11:29 Allergies Allergy/AdvReac Type Severity Reaction Status Date / Time codeine Allergy Mild Unknown Verified 02/05/25 11:27 nitrofurantoin Allergy Mild Unknown Verified 02/05/25 11:27 oxcarbazepine Allergy Mild Unknown Verified 02/05/25 11:27 Home Medications ?Medication ?Instructions ?Recorded ?Confirmed ?Type albuterol sulfate 90 mcg/actuation 2 inh inhalation Q4H 12/17/24 02/05/25 History aerosol inhaler (Ventolin HFA) alprazolam 1 mg tablet 1 mg PO TID PRN anxiety 12/17/24 02/05/25 History aspirin 81 mg tablet 81 mg PO DAILY 12/17/24 02/05/25 History cetirizine 10 mg tablet (Allergy 10 mg PO Q12H PRN allergy symptoms 12/17/24 02/05/25 History Relief (cetirizine)) ciclopirox 8 % topical solution 1 applic topical QHS 12/17/24 02/05/25 History cyanocobalamin (vitamin B-12) 100 mcg subcut MONTHLY 12/17/24 02/05/25 History 1,000 mcg/mL injection kit denosumab 60 mg/mL subcutaneous 60 mg subcut [id number] 12/17/24 01/28/25 History syringe (Prolia) diclofenac sodium 2 % topical ml topical 12/17/24 History solution in packet ergocalciferol (vitamin D2) 50 mcg 50 mcg PO .every 2 weeks 12/17/24 02/05/25 History (2,000 unit) capsule ezetimibe 10 mg tablet 10 mg PO DAILY 12/17/24 02/05/25 History famotidine 40 mg tablet 40 mg PO QHS 12/17/24 02/05/25 History fluticasone propionate 50 1 inh inhalation Q12H 12/17/24 02/05/25 History mcg/actuation blister powder for inhalation isosorbide mononitrate 60 mg 60 mg PO DAILY 12/17/24 02/05/25 History tablet,extended release 24 hr levothyroxine 88 mcg capsule 88 mcg PO DAILY 12/17/24 02/05/25 History montelukast 10 mg tablet 10 mg PO DAILY 12/17/24 02/05/25 History nitroglycerin 0.4 mg sublingual 0.4 mg sublingual Q5M PRN chest 12/17/24 01/28/25 History tablet pain ondansetron HCl 4 mg tablet 4 mg PO Q8H 12/17/24 01/28/25 History pantoprazole 40 mg tablet,delayed 40 mg PO QAM 12/17/24 02/05/25 History release pregabalin 75 mg capsule 75 mg PO BID 12/17/24 02/05/25 History rosuvastatin 40 mg tablet 40 mg PO DAILY 12/17/24 02/05/25 History sennosides 8.6 mg-docusate sodium 2 tab-cap PO QHS 12/17/24 02/05/25 History 50 mg tablet sertraline 100 mg tablet 100 mg PO DAILY 12/17/24 02/05/25 History syringe with needle, safety 3 mL 12/17/24 History 25 gauge x 1 (BD Integra Syringe) temazepam 15 mg capsule 15 mg PO QHS PRN sleep 12/17/24 01/28/25 History linaclotide 145 mcg capsule See Rx Instructions .Route 01/02/25 02/05/25 Rx (Linzess) .COMPLEX #30 caps amoxicillin 875 mg-potassium 1 tablet PO Q12H 7 days #14 tabs 01/08/25 01/28/25 Rx clavulanate 125 mg tablet Held on 01/28/25. Instructions: Patient no longer taking Patient hx anesthesia problems: none Family hx anesthesia problems: none Results Review: All pre-operative results and documents have been reviewed as part of the pre-operative evaluation. [facility] [place] Past Medical History Medical History Bipolar disorder Hypothyroidism High cholesterol Depression Anxiety Neuropathic pain Social History Social History Smoking status: Former smoker Tobacco type: cigarettes Smoking end date: 05/01/73 Alcohol intake: former Substance use: never Substance use type: does not use Living arrangements: assisted living Spiritual care concerns: No Anes - Eval Final PreProcedure Day of Procedure 02/05/25 12:01 Patient weight: normal Heart: regular rate and rhythm Lungs: decreased breath sounds Airway: Mallampati scale class II Neurological: alert and oriented Last oral intake: >/= 8 hours ASA classification: III Emergent: no Anesthetic plan: proceed Anesthesia type and monitoring: general GIVS and standard monitoring Results Review: All pre-operative results and documents have been reviewed as part of the pre-operative evaluation. Informed Consent: The patient's anesthetic plan and its attendant risks and benefits were discussed with the patient/family/POA. Questions were solicited and answers provided to the satisfaction of the patient/family/POA.
--- NOTE | 2025-02-05 12:06 | PM.IMHP ---
H&P: HPI History of Present Illness Date/Time: 02/05/25 12:06 Chief Complaint: History of Darby's esophagus. Narrative: The patient has been diagnosed with Darby's esophagus years ago. Her last endoscopy was more than 5 years ago. She is here today for EGD and biopsies. Review of Systems Review of Systems: All systems reviewed & are unremarkable except as noted in HPI and below PMFSH Past Medical History Medical History Bipolar disorder Hypothyroidism High cholesterol Depression Anxiety Neuropathic pain Social History Social History Smoking status: Former smoker Tobacco type: cigarettes Smoking end date: 05/01/73 Alcohol intake: former Substance use: never Substance use type: does not use Living arrangements: assisted living Spiritual care concerns: No Meds Home Medications and Allergies Home Medications ?Medication ?Instructions ?Recorded ?Confirmed ?Type albuterol sulfate 90 mcg/actuation 2 inh inhalation Q4H 12/17/24 02/05/25 History aerosol inhaler (Ventolin HFA) alprazolam 1 mg tablet 1 mg PO TID PRN anxiety 12/17/24 02/05/25 History aspirin 81 mg tablet 81 mg PO DAILY 12/17/24 02/05/25 History cetirizine 10 mg tablet (Allergy 10 mg PO Q12H PRN allergy symptoms 12/17/24 02/05/25 History Relief (cetirizine)) ciclopirox 8 % topical solution 1 applic topical QHS 12/17/24 02/05/25 History cyanocobalamin (vitamin B-12) 100 mcg subcut MONTHLY 12/17/24 02/05/25 History 1,000 mcg/mL injection kit denosumab 60 mg/mL subcutaneous 60 mg subcut [id number] 12/17/24 01/28/25 History syringe (Prolia) diclofenac sodium 2 % topical ml topical 12/17/24 History solution in packet ergocalciferol (vitamin D2) 50 mcg 50 mcg PO .every 2 weeks 12/17/24 02/05/25 History (2,000 unit) capsule ezetimibe 10 mg tablet 10 mg PO DAILY 12/17/24 02/05/25 History famotidine 40 mg tablet 40 mg PO QHS 12/17/24 02/05/25 History fluticasone propionate 50 1 inh inhalation Q12H 12/17/24 02/05/25 History mcg/actuation blister powder for inhalation isosorbide mononitrate 60 mg 60 mg PO DAILY 12/17/24 02/05/25 History tablet,extended release 24 hr levothyroxine 88 mcg capsule 88 mcg PO DAILY 12/17/24 02/05/25 History montelukast 10 mg tablet 10 mg PO DAILY 12/17/24 02/05/25 History nitroglycerin 0.4 mg sublingual 0.4 mg sublingual Q5M PRN chest 12/17/24 01/28/25 History tablet pain ondansetron HCl 4 mg tablet 4 mg PO Q8H 12/17/24 01/28/25 History pantoprazole 40 mg tablet,delayed 40 mg PO QAM 12/17/24 02/05/25 History release pregabalin 75 mg capsule 75 mg PO BID 12/17/24 02/05/25 History rosuvastatin 40 mg tablet 40 mg PO DAILY 12/17/24 02/05/25 History sennosides 8.6 mg-docusate sodium 2 tab-cap PO QHS 12/17/24 02/05/25 History 50 mg tablet sertraline 100 mg tablet 100 mg PO DAILY 12/17/24 02/05/25 History syringe with needle, safety 3 mL 12/17/24 History 25 gauge x 1 (BD Integra Syringe) temazepam 15 mg capsule 15 mg PO QHS PRN sleep 12/17/24 01/28/25 History linaclotide 145 mcg capsule See Rx Instructions .Route 01/02/25 02/05/25 Rx (Linzess) .COMPLEX #30 caps amoxicillin 875 mg-potassium 1 tablet PO Q12H 7 days #14 tabs 01/08/25 01/28/25 Rx clavulanate 125 mg tablet Held on 01/28/25. Instructions: Patient no longer taking Allergies Allergy/AdvReac Type Severity Reaction Status Date / Time codeine Allergy Mild Unknown Verified 02/05/25 11:27 nitrofurantoin Allergy Mild Unknown Verified 02/05/25 11:27 oxcarbazepine Allergy Mild Unknown Verified 02/05/25 11:27 Vital Signs Vital Signs - 24 hr 10/08/25 11:29 Temperature 98.9 F Pulse Rate 81 Respiratory Rate 16 Blood Pressure 130/60 Pulse Oximetry 95 Oxygen Delivery Room Air Exam Const: General: cooperative and healthy appearing Resp: Effort & Inspection: normal respiratory effort and able to speak in complete sentences Auscultation: clear to auscultation bilaterally Cardio: Rate: regular rate Rhythm: regular rhythm GI: Inspection: normal to inspection GI Palp: No No hepatosplenomegaly present Auscultation: normal bowel sounds Rectal Exam: deferred Skin: General skin exam: normal color Psych: Appearance: grossly normal Mental Status: mental status grossly normal Assessment and Plan Assessment and plan (1) 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: Code(s): K22.70 - Darby's esophagus without dysplasia Status: Acute Assessment and Plan: The patient is deemed a good candidate for the procedure. Consent signed. Will proceed.
--- NOTE | 2025-02-05 12:14 | S_PTH ---
PATIENT: Angelia Salcedo LOC: [facility] U#:[id number] AGE/SX: 80/F ROOM: RE02/05/[address]: Roman Maldonado MD : 1945 BED: DIS: 02/05/2025 SPEC #: [id number] RECD: 02/05/25 13:08 STATUS: GLORIA RE #: [id number] REMEDIOS: 02/05/25 12:[address]: Roman Maldonado DEPT: [facility] Surgical RECD BY: Sandra Castillo ENTERED: 02/05/25 13:08 SP TYPE: Surgical OTHR DR: Naila MarroquinMD Tissues: A - Gastric Biopsy B - Gastric Biopsy Procedures: Hematoxylin and Eosin Stain Trichrome Stain Gross and Microscopic Level 4 [place] Red H.Pylori
[2025-02-05 12:15] VITALS: BP 118/56; PULSE 78; RESP 24; O2SAT 95
[2025-02-05 12:25] VITALS: BP 108/63; PULSE 85; RESP 24; O2SAT 95
[2025-02-05 12:35] VITALS: BP 125/62; PULSE 79; RESP 21; O2SAT 97
--- NOTE | 2025-02-05 12:48 | SUR.PHASEII ---
Addendum entered by Divine Salgado RN 02/05/25 13:07: Pt states relief after using inhaler. O2 sat stable on room air. Pt discharged at this time. Original Note: Pt coughing postoperatively states she feels short of breath and that she used her albuterol inhaler this morning prior to arrival. Dr. Burns (anesthesiologist) notified, order received for pt to use her inhaler again at this time.
== END 2025-02-05 13:00 | disposition home or self-care (01) ==
PROVIDERS: PCP Internal Medicine; Referring Provider Internal Medicine Gastroenterology; Visit Provider Internal Medicine Gastroenterology
PROC: 0DJ08ZZ Inspection of Upper Intestinal Tract, Via Natural or Artificial Opening Endoscopic (ICD-10-PCS; CPT 43239; principal; 2025-02-05 12:30)
DX: K29.40 Chronic atrophic gastritis without bleeding (principal); E03.9 Hypothyroidism, unspecified; E78.00 Pure hypercholesterolemia, unspecified; F41.9 Anxiety disorder, unspecified; F31.9 Bipolar disorder, unspecified; Z79.51 Long term (current) use of inhaled steroids; Z79.82 Long term (current) use of aspirin; Z87.891 Personal history of nicotine dependence; Z87.19 Personal history of other diseases of the digestive system
CPT/HCPCS: 43239; 88305; 88313; 88342; J2704; J7120

== ENCOUNTER 2025-02-24 10:49 | Outpatient (CLI) | payer MEDICARE, OTHER, SELFPAY ==
--- OUTSIDE RECORDS SUMMARY | 2022-11-29 09:24 | XMS_ITS | Encounter Summary ---
Author Organization [facility] Address [address] [place] [address] Phone Care Team Providers Care Discotheque Dancer Name Role Phone Naila Marroquin MD Primary Care Provider [phone]- [phone] Janine Bañuelos RN Unavailable UnaJohn Paul Sawant MD Unavailable [phone] Sindy Armstrong RN Unavailable Darlene vailable Reason for Referral * Procedure (Routine) - Closed Specialty Diagnoses / Procedures Referred By Jus lin Referred To Contact Diagnoses ILD (interstitial lung disease) (HCC) Procedures Pulmonary Function Test -[facility]- [facility]; Spirometry, Oxygen Assessment Titration Lesli Richard MD [address] [place] [address] Phone: tel: fax: Referral ID Status Reason Start Date Expiration Date Visits Re quested Visits Authorized [id number] Closed 10/17/2022 11/16/2023 1 1 Reason for Visit * Procedure (Routine) - Closed Specialty Diagnoses / Procedures Referred By Jus lin Referred To Contact Diagnoses ILD (interstitial lung disease) (HCC) Procedures Pulmonary Function Test -[facility] Adult [facility]FT [facility]- [facility]; Spirometry, Oxygen Assessment Titration Lesli Richard MD [address] [facility] [address] [place] [address] Phone: tel: fax: Referral ID Status Reason Start Date Expiration Date Visits Re quested Visits Authorized [id number] Closed 10/17/2022 11/16/2023 1 1 Encounter Details Date Type Department Care Team (Latest Contact Info) Description 11/29/2022 9:24 AM CDT [facility] 10 [facility] Building [address] [place] [address] ILD (interstitial lung disease) ([facility]) Social History Tobacco Use Types [...] often do you attend chur ch or hoahaoism services? Never 01/25/2023 Do you belong to any clubs o r organizations such as evangelical groups, unions, fraternal or athletic groups, or [...] place to sleep or slept in a chcf (including now)? No 01/25/2023 Personal Safety Answer Date Recorded Have you ever been in or are you currently in a harmful physical or emotional relationship or is someone making you feel afraid or unsafe? Denies 05/06/2023 Comments No Sex and Gender Information Value Date Recorded Sex Assigned at Not on file Legal Sex Female 8:29 PM RIG MECHANIC Gender Identity Female 09/24/2021 1:08 PM CDT [...] 10:00 AM CDT) FVC PRE 1.35 L [facility] FVC %PRE PRED 54 % [facility] FEV1 PRE 1.25 L [facility] FEV1 %PRE PRED 64 % [facility] FEV1/FVC PRE 92.6 % [facility] Anatomical Region Laterality Modality PFT 11/29/2022 9:27 AM CDT Narrative 12/04/2022 10:49 AM CDT Table formatting from the original result was not included. [facility] Division of Pulmonary & Critical Care Medicine [address] [place] [address]; [place] [address] [facility]; [place] [address]; [phone] Pulmonary Function Laboratory Pulmonary Stress Test Simple/Oxygen [...] Work [distance (m) x body wt (kg)]: 53408 kg.m (normal >60,000kg.m) Oxygen required to maintain [...] with the written final report. PFT performed at:->[employer] [facility] Adult PFT [facility]- [facility] Procedure:->Spirometry Procedure:->Oxygen Assessment Titration us Lesli Richard [...] days ago. 05/06/2023 05/06/2023 05/16/2023 3:05 AM RIG MECHANIC COVID: Recovered Comment:Added based on recent COVID infection. 05/16/2023 05/23/2023 08/14/2023 3:05 AM C DT documented as of this encounter Care Teams Discotheque Dancer Relationship Specialty Start Date End Date Naila Marroquin MD [address] [address] PCP - General 07/21/17 Janine Bañuelos, convalescent sitter Nurse 08/02/18 John Paul Springer MD Consulting Physician Orthopedic Surgery 12/05/19 Sindy Armstrong, ALEXANDRA Registered Nurse Pulmonary Disease 03/23/22 documented as of this encounter
--- OUTSIDE RECORDS SUMMARY | 2023-03-21 10:42 | XMS_ITS | Encounter Summary ---
Author Organization [facility] of [facility] Address [address] [place] [address] Phone Care Team Providers Care Radial Arm Saw Operator Name Role Phone Naila Marroquin MD Primary Care Provider [phone] Janine Bañuelos RN Unavailable UnavaJohn Paul Gillette MD Unavailable [phone] Sindy Armstrong RN Unavailable Darlene vailable Reason for Referral * Procedure (Routine) - Closed Specialty Diagnoses / Procedures Referred By Jus lin Referred To Contact Diagnoses ILD (interstitial lung disease) (HCC) Procedures Pulmonary Function Test -[facility] Adult PFT Lab- [facility]; Spirometry, Oxygen Assessment Titration Lesli Richard MD [address] [place] [address] Phone: tel: fax: Referral ID Status Reason Start Date Expiration Date Visits Re quested Visits Authorized [id number] Closed 11/29/2022 12/29/2023 1 1 MACHINE OPERATOR Reason for Visit * Procedure (Routine) - Closed Specialty Diagnoses / Procedures Referred By Jus t Referred To Contact Diagnoses ILD (interstitial lung disease) (HCC) Procedures Pulmonary Function Test -[facility] Adult PFT Lab- [facility]; Spirometry, Oxygen Assessment Titration Lesli Richard MD [address] [facility] [address] [place] [address] Phone: tel: fax: Referral ID Status Reason Start Date Expiration Date Visits Re quested Visits Authorized [id number] Closed 11/29/2022 12/29/2023 1 1 Encounter Details Date Type Department Care Team (Latest Contact Info) Description 03/21/2023 9:42 AM BED MACHINE OPERATOR Hospital Encounter [facility] Medicine PFT Lab 10 [facility] Office [address] [place] [address] ILD (interstitial lung disease) ([facility]) Social History Tobacco Use Types [...] any clubs o r organizations such as episcopalian groups, unions, fraternal or athletic groups, or [...] place to sleep or slept in a residential (including now)? No 01/25/2023 Personal Safety Answer Date Recorded Have you ever been in or are you currently in a harmful physical or emotional relationship or is someone making you feel afraid or unsafe? Denies 05/06/2023 Comments No Sex and Gender Information Value Date Recorded Sex Assigned at Not on file Legal Sex Female 8:29 PM BED MACHINE OPERATOR Gender Identity Female 09/24/2021 1:08 PM CDT [...] FUNCTION TEST (PFT) Routine 03/21/2023 10:53 AM BED MACHINE OPERATOR ILD (interstitial lung disease) (HCC) documented in this encounter Results * Pulmonary Function Test - (03/21/2023 10:53 AM BED MACHINE OPERATOR) FVC PRE 1.35 L [facility] FVC %PRE PRED 56 % [facility] FEV1 PRE 1.31 L [facility] FEV1 %PRE PRED 71 % [facility] FEV1/FVC PRE 96.9 % [facility] Anatomical Region Laterality Modality PFT 03/21/2023 9:59 AM BED MACHINE OPERATOR Impressions 03/24/2023 3:13 PM BED MACHINE OPERATOR There is a moderate restrictive ventilatory defect. [...] and %HbO2 is age dependent. However, the [facility] Pulmonary Function Laboratory defines hypoxemia as a PO2 <55 or a %HbO2 <89. Narrative 03/24/2023 3:13 PM BED MACHINE OPERATOR Table formatting from the original result was not included. [facility] Division of Pulmonary & Critical Care Medicine [address] [place] [address]; [place] [address] [facility]; [place] [address]; [phone] Pulmonary Function Laboratory Pulmonary Stress Test Simple/Oxygen [...] Work [distance (m) x body wt (kg)]: 16924 kg.m (normal >60,000kg.m) Oxygen required to maintain [...] with the written final report. PFT performed at:->[facility] Adult PFT Lab- [facility] Procedure:->Spirometry Procedure:->Oxygen Assessment Titration Pulmonary [...] days ago. 05/06/2023 05/06/2023 05/16/2023 3:05 AM BED MACHINE OPERATOR COVID: Recovered Comment:Added based on recent COVID infection. 05/16/2023 05/23/2023 08/14/2023 3:05 AM C DT documented as of this encounter Care Teams Radial Arm Saw Operator Relationship Specialty Start Date End Date Naila Marroquin MD [address] [facility] [address] [place] [address] PCP - General 07/21/17 Janine Bañuelos, environmental air specialist Nurse 08/02/18 John Paul Springer MD Consulting Physician Orthopedic Surgery 12/05/19 Sindy Armstrong, ALEXANDRA Registered Nurse Pulmonary Disease 03/23/22 documented as of this encounter
--- OUTSIDE RECORDS SUMMARY | 2023-07-18 09:06 | XMS_ITS | Encounter Summary ---
Author Organization [facility] Address [address] [place] [address] Phone Care Team Providers Care Contact Center Engineer Name Role Phone Naila Marroquin MD Primary Care Provider [phone] Janine Bañuelos RN Unavailable UnavaJohn Paul Gillette MD Unavailable [phone] Sindy Armstrong RN Unavailable Darlene vailable Reason for Referral * Procedure (Routine) - Closed Specialty Diagnoses / Procedures Referred By Contac t Referred To Contact Diagnoses ILD (interstitial lung disease) (HCC) Procedures Pulmonary Function Test -[facility] Adult PFT Lab- CAM-8D; Spirometry, Oxygen Assessment Titration Lesli Richard MD [address] [place] [address] Phone: tel: fax: Referral ID Status Reason Start Date Expiration Date Visits Re quested Visits Authorized [id number] Closed 03/21/2023 04/19/2024 1 1 Reason for Visit * Procedure (Routine) - Closed Specialty Diagnoses / Procedures Referred By Contac t Referred To Contact Diagnoses ILD (interstitial lung disease) (HCC) Procedures Pulmonary Function Test -[facility] Adult PFT Lab- CAM-8D; Spirometry, Oxygen Assessment Titration Lesli Richard MD [address] [place] [address] Phone: tel: fax: Referral ID Status Reason Start Date Expiration Date Visits Re quested Visits Authorized [id number] Closed 03/21/2023 04/19/2024 1 1 Encounter Details Date Type Department Care Team (Latest Contact Info) Description 07/18/2023 9:06 AM CDT [facility] 10 [facility] [address] [place] [address] ILD (interstitial lung disease) ([facility]) Social History Tobacco Use Types [...] often do you attend chur ch or mu-ism services? Never 01/25/2023 Do you belong to any clubs o r organizations such as judaism groups, unions, fraternal or athletic groups, or [...] place to sleep or slept in a senior living (including now)? No 01/25/2023 Personal Safety Answer Date Recorded Have you ever been in or are you currently in a harmful physical or emotional relationship or is someone making you feel afraid or unsafe? 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 FVC %PRE PRED 52 % [facility] FEV1 PRE 1.[address] [facility] FEV1 %PRE PRED 63 % [facility] FEV1/FVC PRE 92.6 % [facility] Anatomical Region Laterality Modality PFT 07/18/2023 9:09 [...] and %HbO2 is age dependent. However, the [facility] Pulmonary Function Laboratory defines hypoxemia as a PO2 <55 or a %HbO2 <89. Narrative 07/19/2023 8:01 PM CDT Table formatting from the original result was not included. [facility] Division of Pulmonary & Critical Care Medicine [address] [place] [address]; [place] [address] [facility]; [place] [address]; [phone] Pulmonary Function Laboratory Pulmonary Stress Test Simple/Oxygen [...] Work [distance (m) x body wt (kg)]: 71868 kg.m (normal >60,000kg.m) Oxygen required to maintain [...] with the written final report. PFT performed at:->[facility] Adult PFT Lab- CAM-8D Procedure:->Spirometry Procedure:->Oxygen [...] documented as of this encounter Care Teams Contact Center Engineer Relationship Specialty Start Date End Date Naila Marroquin MD [address] [facility] [address] [place] [address] PCP - General 07/21/17 Janine Bañuelos, renal nurse Nurse 08/02/18 John Paul Springer MD Consulting Physician Orthopedic Surgery 12/05/19 Sindy Armstrong, RN Registered Nurse Pulmonary Disease 03/23/22 documented as of this encounter
--- OUTSIDE RECORDS SUMMARY | 2023-10-31 09:44 | XMS_ITS | Encounter Summary ---
Author Organization [facility] Address [address] [place] [address] Phone Care Team Providers Care Machine Iii Coremaker Name Role Phone Naila Marroquin MD Primary Care Provider [phone] Janine Bañuelos RN Unavailable UnaJohn Paul Sawant MD Unavailable [phone] Sindy Armstrong RN Unavailable Darlene vailable Reason for Referral * Procedure (Routine) - Closed Specialty Diagnoses / Procedures Referred By Jus lin Referred To Contact Diagnoses ILD (interstitial lung disease) (HCC) Procedures Pulmonary Function Test -[facility] Adult PFT Lab- [facility]; Spirometry, Oxygen Assessment Titration Lesli Richard MD [address] [place] [address] Phone: tel: fax: Referral ID Status Reason Start Date Expiration Date Visits Re quested Visits Authorized [id number] Closed 10/27/2023 11/25/2024 1 1 Reason for Visit * Procedure (Routine) - Closed Specialty Diagnoses / Procedures Referred By Jus lin Referred To Contact Diagnoses ILD (interstitial lung disease) (HCC) Procedures Pulmonary Function Test -[facility] Adult PFT Lab- [facility]; Spirometry, Oxygen Assessment Titration Lesli Richard MD [address] [place] [address] Phone: tel: fax: Referral ID Status Reason Start Date Expiration Date Visits Re quested Visits Authorized [id number] Closed 10/27/2023 11/25/2024 1 1 Encounter Details Date Type Department Care Team (Latest Contact Info) Description 10/31/2023 9:44 AM CDT [facility] 10 [facility] [address] [place] [address] ILD (interstitial lung disease) ([facility]) Social History Tobacco Use Types Packs/Day [...] often do you attend chur ch or shinto services? Never 01/25/2023 Do you belong to any clubs o r organizations such as baptist groups, unions, fraternal or athletic groups, or [...] place to sleep or slept in a halfway (including now)? No 01/25/2023 Personal Safety Answer Date Recorded Have you ever been in or are you currently in a harmful physical or emotional relationship or is someone making you feel afraid or unsafe? Denies 05/06/2023 Comments No Sex and Gender Information Value Date Recorded Sex Assigned at Not on file Legal Sex Female 8:29 PM DIRECTOR OF CLINICAL APPLICATIONS Gender Identity Female 09/24/2021 1:08 PM CDT [...] 10:14 AM CDT) FVC PRE 1.27 L [facility] FVC %PRE PRED 53 % [facility] FEV1 PRE 1.05 L [facility] FEV1 %PRE PRED 57 % [facility] FEV1/FVC PRE 82.4 % [facility] Anatomical Region Laterality Modality PFT 10/31/2023 [...] is age dependent. However, the [facility] Pulmonary Function Laboratory defines hypoxemia as a PO2 <55 or a %HbO2 <89. Narrative 11/01/2023 8:16 PM CDT Table formatting from the original result was not included. [facility] Division of Pulmonary & Critical Care Medicine [address] [place] [address]; [place] [facility]; [place] [address]; [phone] Pulmonary Function Laboratory Pulmonary Stress Test Simple/Oxygen [...] Work [distance (m) x body wt (kg)]: 05022 kg.m (normal >60,000kg.m) Oxygen required to maintain [...] with the written final report. PFT performed at:->[facility] Adult PFT Lab- [facility] Procedure:->Spirometry Procedure:->Oxygen Assessment Titration Pulmonary Function Test Interpretation SPIROMETRY: The FEVI to FVC ratio is normal. The FEV-I and FVC are reduced in a pattern suggestive of a restrictive abnormality. However, measurement of lung volumes is suggested to confirm this if clinically indicated. FLOW VOLUME LOOPS: The inspiratory loop is suggestive of submaximal effort. 

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
--- NOTE | ~2025-02-24 | DEXA_ITS ---
Bone Density Report Name: JOHN PARIKH Age: 80 Sex: Female Ethnicity: White Date of : 1945 Indication: postmenopausal; screening for osteoporosis; height loss; rheumatoid arthritis; secondary osteoporosis; Referring Provider: SHAHAB, NURIS Study: Bone densitometry was performed. Exam Date: February 24, 2025 Accession number: [id number] Bone Density: Region BMD T-score Z-score Classification AP Spine(L1-L4) 1.052 0.0 2.6 Normal Femoral Neck (Left) 0.626 -2.0 0.2 Osteopenia Total Hip (Left) 0.806 -1.1 0.8 Osteopenia Femoral Neck (Right) 0.574 -2.5 -0.3 Osteoporosis Total Hip (Right) 0.772 -1.4 0.6 Osteopenia Total Hip Mean 0.789 -1.3 0.7 Osteopenia World Health Organization criteria for BMD impression classify patients as: Normal (T-score at or above -1.0), Osteopenia (T-score between -1.0 and -2.5), or Osteoporosis (T-score at or below -2.5). 10-year Fracture Risk: FRAX not reported because: Some T-score for Spine Total or Hip Total or Femoral Neck at or below -2.5 Treated for osteoporosis Clinical Information Provided by Patient: Has rheumatoid arthritis Has secondary osteoporosis Is being treated for osteoporosis Has used the following medications: Vitamin D, shots for osteoporosis Patient maximum height was 62.0 Menopause Age: 32 No regular weight bearing exercise Drinks caffeinated beverages Onset of menses at age 16 Number of children 2 Impression: The patient has osteoporosis, based on the Right Femoral Neck T-score. Discussion: It is important to ask patients whether they are taking their medications and to encourage continued and appropriate compliance with their osteoporosis therapies to reduce fracture risk. It is also important to review their risk factors and encourage appropriate calcium and vitamin D intakes, exercise, fall prevention and other lifestyle measures. Follow-Up: Consider a repeat BMD and Vertebral Fracture Assessment (VFA) exam in 2 years or sooner if medically necessary, to reassess this patient's status. Reported by: MARIANELA on 02/24/2025 11:34:00 AM. Reviewed, dictated and finalized at location A.
--- OUTSIDE RECORDS SUMMARY | 2025-02-24 12:19 | XMS_ITS | Data Portability ---
Author Organization [facility] [employer] Address [address] [place] [address] Care Team Providers Care Shirring Tender Name Role Phone NAILA GUDINO Primary Care Provider Assessment Encounter Date Assessment Date Assessment LastModified by Organization Details LastModified Time 02/13/2024 02/13/2024 Patient presented for follow up. [...] as noted below. Not available 06/04/2024 10:50:07 10/11/2024 10/11/2024 Patient presented for follow up. Studies ordered as below. Discussed plan with patient/careg iver, who expressed understanding . Follow up as noted below. Not available 10/11/2024 11:24:18 01/09/2025 01/09/2025 Patient presented for follow up. Studies ordered as below. Discussed plan with patient/careg iver, who expressed understanding . Follow up as noted below. Not available 01/09/2025 11:05:20 Plan of Treatment Reminders Order Date Submit Date Provider Last Modified By Organization Details Last Modified Time Details Appointments ESTABLISH ED PATIENT 15 2024 11:15A Pam Gudino MD Not available Not available Not available Lab HbA1c (hemoglob in A1c), blood 2024 025 [facility], [address], [place], [address], 01/10/2025 13:57:09 CMP, serum or plasma 2024 025 [facility], [address] [place], [address], 01/10/2025 13:57:10 CBC w/ auto diff 2024 025 [facility], [address] [place], [address], 01/10/2025 13:57:09 TSH + free T4, serum 2024 025 [facility], [address] [place], [address], 01/16/2025 04:07:19 lipid panel w/ direct LDL, serum 2024 025 [facility], [address] [place], [address], 10/18/2024 04:04:02 CMP, serum or plasma 2024 025 [facility], [address] [place], [address], 10/12/2024 12:38:06 CBC w/ auto diff 2024 025 [facility], [address] [place], [address], 10/12/2024 12:38:05 vitamin D, 25-hydrox y, total, serum 2024 025 [facility], [address] [place], [address], 10/18/2024 04:04:02 TSH + free T4, serum 2024 025 [facility], [address] [place], [address], 10/18/2024 04:04:02 vitamin B12 + folate, serum or blood 2024 025 [facility], [address] [place], [address], 10/18/2024 04:04:02 AST/SGOT (aspartat e aminotran sferase), serum or plasma 2024 025 [facility], [address] [place], [address], 06/05/2024 15:34:49 ALT (alanine aminotran sferase), serum or plasma 2024 025 [facility], [address] [place], [address], 06/05/2024 15:34:48 lipid panel w/ direct LDL, serum [address], [address], [place], [address], 08/13/2024 18:54:31 CMP, serum or plasma 2024 025 [facility], [address] [place], [address], 05/14/2024 16:23:13 CBC w/ auto diff [address] [place] [address], [address] [place], [address], 05/14/2024 16:23:13 HbA1c (hemoglob in A1c), blood [address] [place] [address], [address] [place], [address], 05/14/2024 16:23:12 TSH + free T4, serum [address], [address] [place], [address], 08/13/2024 18:54:30 TSH + free T4, serum [address], [address] [place], [address], 08/13/2024 18:54:31 tb (M tuberculo sis), ifn-gamma rose, blood 2023 [facility], [address] [place], [address], 02/13/2024 13:21:19 HbA1c (hemoglob in A1c), blood 2023 024 [facility], [address] [place], [address], 02/15/2024 15:16:18 lipid panel w/ direct LDL, serum [address], [address] [place], [address], 08/13/2024 18:54:30 TSH, serum or plasma [address], [address] [place], [address], 08/13/2024 18:54:30 vitamin B12, serum 2023 024 [facility], [address] [place], [address], 02/15/2024 15:16:23 CMP, serum or plasma 2023 024 [facility], [address] [place], [address], 02/15/2024 15:16:20 CBC w/ auto diff [address] [facility], [address] , [place], [address], 02/15/2024 15:16:19 Referral gastroent erologist referral 2024 025 MOMO Gonzalez MD, [address], [place], [address], 01/18/2025 15:24:[address] referral 2024 025 [facility], [address] [place], [address], 11/08/2024 04:04:35 gastroent erologist referral 2024 025 MOMO Gonzalez MD, [address], [address], [place], [address], 11/08/2024 04:04:35 gastroent erologist referral 2024 025 MOMO Gonzalez MD, [address], [address], [place], [address], 11/08/2024 04:04:36 pulmonolo gist referral 2024 025 MOMO Richard, [address], [place], [address], 07/16/2024 13:29:[address] referral [address], [address] [place], [address], 08/13/2024 18:55:09 Procedures None recorded. Surgeries None recorded. Imaging MAMMO, screening , digital, bilateral 2024 025 [facility], [address], [place], [address], 01/23/2025 04:08:56 bone density 2024 025 [facility], [address], [place], [address], 01/23/2025 04:08:56 MRI, abdomen, w/wo contrast 2024 025 [facility], [address], [place], [address], 01/16/2025 04:07:19 US, liver 2024 025 [facility], [address], [place], [address], 01/16/2025 04:07:19 MAMMO, screening , digital, bilateral 2024 025 [facility], [address], [address], [place], [address], 10/25/2024 04:06:23 bone density [address], [address], [place], [address], 08/13/2024 18:54:31 electroca rdiogram 2024 025 [facility], [facility], [address] , [address], [place], [address], 05/13/2024 13:35:46 Medication Orders Prolia 60 mg/mL subcutane ous syringe 2024 025 [facility], [address] [place], [address], 10/11/2024 12:07:50 ezetimibe 10 mg tablet 2024 025 [facility], [address] [place], [address], 10/11/2024 12:07:52 ciclopiro x 8 % topical solution 2024 [facility], [address] [place] [address], [address], 10/11/2024 11:54:01 sennoside s 8.6 mg-docusa te sodium 50 mg tablet 2024 [facility], [address] [place] [address], [address], 05/13/2024 13:07:31 Refresh Tears 0.5 % eye drops 2023 [facility], [address] [place] [address], [id number], 05/13/2024 12:55:54 Dodex 1,000 mcg/mL injection solution 2023 024 [facility], [address] [place] [address], [id number], 02/13/2024 13:21:13 albuterol sulfate HFA 90 mcg/actua tion aerosol inhaler 2023 024 [facility]07571, [address] [place] [address], [id number], 02/13/2024 13:21:14 famotidin e 40 mg tablet 2023 [facility]23511, [address] [place] [address], [id number], 01/16/2025 21:12:36 pantopraz ole 40 mg tablet,de layed release 2023 025 [facility], [address] [place] [address], [id number], 01/16/2025 21:12:29 Patient TargetsNo targets recorded. Patient Instructions Encounter Date Encounter Id Patient Instructions Last Modified By Organization Details Last Modified Time 02/13/2024 [id number] high cholesterol : care instructions mshenouda Not available 02/13/2024 13:21:04 dry eyes: care instructions mshenouda Not available 02/13/2024 13:21:04 bipolar disorder : care instructions mshenouda Not available 02/13/2024 13:21:03 learning about mood disorders mshenouda Not available 02/13/2024 13:21:03 learning about asthma mshenouda Not available 02/13/2024 13:21:03 garrett's esophagus: care instructions mshenouda Not available 02/13/2024 13:21:04 05/13/2024 [id number] osteoporosis: care instructions mshenouda Not available 05/13/2024 13:05:52 mammogram: about this test mshenouda Not available 05/13/2024 13:05:52 interstitial rob g disease: care instructions mshenouda Not available 05/13/2024 13:05:51 bipolar disorder : care instructions mshenouda Not available 05/13/2024 13:05:52 learning about mood disorders mshenouda Not available 05/13/2024 13:05:52 hypothyroidism: care instructions mshenouda Not available 05/13/2024 13:05:53 10/11/2024 [id number] mammogram: about this test mshenouda Not available 10/11/2024 12:06:38 sleep apnea: car e instructions mshenouda Not available 10/11/2024 12:06:38 garrett's esophagus: care instructions mshenouda Not available 10/11/2024 12:06:38 hypothyroidism: care instructions mshenouda Not available 10/11/2024 12:06:38 neuropathic pain : care instructions mshenouda Not available 10/11/2024 12:06:38 01/09/2025 [id number] mammogram: about this test mshenouda Not available 01/09/2025 12:00:13 arthritis: care instructions mshenouda Not available 01/09/2025 12:00:12 osteoporosis: care instructions mshenouda Not available 01/09/2025 12:00:13 interstitial rob g disease: care instructions mshenouda Not available 01/09/2025 12:00:13 sleep apnea: car e instructions mshenouda Not available 01/09/2025 12:00:13 garrett's esophagus: care instructions mshenouda Not available 01/09/2025 12:00:13 learning about asthma mshenouda Not available 01/09/2025 12:00:13 spirometry testing* MOMO Not available 01/10/2025 09:22:19 hypothyroidism: care instructions mshenouda Not available 01/09/2025 12:00:13 living will mshenouda Not available 12/30 12:00:41 Reason for Referral Sap Technical Architect Referral for I [facility] lung disease Referring Physician: Naila Gudino, Internal Medicine, Encounter Date: 05/13/2024 Shale Miner Referral for Kapil ign hypertension Referring Physician: Naila Gudino Internal Medicine, Encounter Date: 05/13/2024 Shale Miner Referral for Kapil ign hypertension Referring Physician: Naila Gudino Internal Medicine, Encounter Date: 10/11/2024 Education And Training Manager Referral for Screening for malignant neoplasm of colon Referring Physician: Naila Gudino Internal Medicine, Encounter Date: 10/11/2024 Education And Training Manager Referral for Garrett's esophagus Referring Physician: Naila Gudino Internal Medicine, Encounter Date: 10/11/2024 Education And Training Manager Referral for Garrett's esophagus Referring Physician: Naila Gudino Internal Medicine, Encounter Date: 01/09/2025 Results Created Date Observation Date Name Description Value Unit Range Abnormal Flag Note LastModifiedBy Organization Detail LastModifiedTime 02/13/20 24 02/13/2024 HEMOG LOBIN A1C hemoglobin A1C 5.4 % 4.8-5. 6 COLETTE L RANGE BASED ON ALVIN COL 2 (DCCT /NGSP ): Non-D iabet ic: < 5.7% Pre-D iabet es: 5.7 - 6.4% Diabe magaly: => 6.5% GLYCE ZIGGY CONTR OL: < 7.0% Not Available [facility] [address], [place], [address], 02/15/2024 15:16:18 02/13/2002/13/2024 HEMOG LOBIN A1C estimated average glucose 109 Not Available [facility] [address], [place], [address], 02/15/2024 15:16:18 02/13/20 24 02/13/2024 CBC WITH AUTO- DIFFE RENTI AL WBC 8.0 10*3/ uL 3.4-10 .8 Not Available [facility] [address], [place], [address], 02/15/2024 15:16:19 02/13/2002/13/2024 CBC WITH AUTO- DIFFE RENTI AL RBC 5.24 10*6/ uL 3.80-5 .30 Not Available [facility] [address], [place], [address], 02/15/2024 15:16:19 02/13/2002/13/2024 CBC WITH AUTO- DIFFE RENTI AL HGB 14.4 g/dL 11.1-1 5.9 Not Available [facility] [address], [place], [address], 02/15/2024 15:16:19 02/13/2002/13/2024 CBC WITH AUTO- DIFFE RENTI AL HCT 44.6 % 34.0-4 6.6 Not Available [facility] [address], [place], [address], 02/15/2024 15:16:19 02/13/2002/13/2024 CBC WITH AUTO- DIFFE RENTI AL MCV 85 fL 79-97 Not Available [facility] [address], [place], [address], 02/15/2024 15:16:19 02/13/2002/13/2024 CBC WITH AUTO- DIFFE RENTI AL MCH 27.5 pg 26.6-3 3.0 Not Available [facility] [address], [place], [address], 02/15/2024 15:16:19 02/13/2002/13/2024 CBC WITH AUTO- DIFFE RENTI AL MCHC 32.3 g/dL 31.5-3 5.7 Not Available [facility] [address], [place], [address], 02/15/2024 15:16:19 02/13/2002/13/2024 CBC WITH AUTO- DIFFE RENTI AL RDW 13.5 % 11.5-1 4.5 Not Available [facility] [address], [place], [address], 02/15/2024 15:16:19 02/13/2002/13/2024 CBC WITH AUTO- DIFFE RENTI AL platelets 242 10*3/ uL 150-40 0 Not Available [facility] [address], [place], [address], 02/15/2024 15:16:19 02/13/2002/13/2024 CBC WITH AUTO- DIFFE RENTI AL MPV 12 fL 9-13 Not Available [facility] [address], [place], [address], 02/15/2024 15:16:19 02/13/2002/13/2024 CBC WITH AUTO- DIFFE RENTI AL neutrophils 81.6 % 40.0-7 4.0 high Not Available [facility] [address], [place], [address], 02/15/2024 15:16:19 02/13/2002/13/2024 CBC WITH AUTO- DIFFE RENTI AL absolute neutrophils 6.52 10*3/ uL 1.40-7 .00 Not Available [facility] [address] [facility] [address], [place], [address], 02/15/2024 15:16:19 02/13/2002/13/2024 CBC WITH AUTO- DIFFE RENTI AL lymphocytes 10.6 % 14.0-4 6.0 low Not Available [facility] [address] [facility] [address], [place], [address], 02/15/2024 15:16:19 02/13/2002/13/2024 CBC WITH AUTO- DIFFE RENTI AL absolute lymphocytes 0.85 10*3/ uL 0.70-3 .10 Not Available [facility] [address] [facility] [address], [place], [address], 02/15/2024 15:16:19 02/13/2002/13/2024 CBC WITH AUTO- DIFFE RENTI AL monocytes 4.6 % 4.0-12 .0 Not Available [facility] [address] [facility] [address], [place], [address], 02/15/2024 15:16:19 02/13/2002/13/2024 CBC WITH AUTO- DIFFE RENTI AL absolute monocytes 0.37 10*3/ uL 0.10-0 .90 Not Available [facility] [address] [facility] [address], [place], [address], 02/15/2024 15:16:19 02/13/2002/13/2024 CBC WITH AUTO- DIFFE RENTI AL eosinophils 2.3 % 0.0-5. 0 Not Available [facility] [address] [facility] [address], [place], [address], 02/15/2024 15:16:19 02/13/2002/13/2024 CBC WITH AUTO- DIFFE RENTI AL absolute eosinophils 0.18 10*3/ uL 0.00-0 .40 Not Available [facility] [address] [facility] [address], [place], [address], 02/15/2024 15:16:19 02/13/2002/13/2024 CBC WITH AUTO- DIFFE RENTI AL basophils 0.6 % 0.0-3. 0 Not Available [facility] [address] [facility] [address], [place], [address], 02/15/2024 15:16:19 02/13/2002/13/2024 CBC WITH AUTO- DIFFE RENTI AL absolute basophils 0.05 10*3/ uL 0.00-0 .20 Not Available [facility] [address] [facility] [address], [place], [address], 02/15/2024 15:16:19 02/13/2002/13/2024 CBC WITH AUTO- DIFFE RENTI AL imm. gran. 0.3 % 0.0-2. 0 Not Available [facility] [address] [facility] [address], [place], [address], 02/15/2024 15:16:19 02/13/2002/13/2024 CBC WITH AUTO- DIFFE RENTI AL abs. imm. gran. 0.02 10*3/ uL 0.00-0 .10 Not Available [facility] [address] [facility] [address], [place], [address], 02/15/2024 15:16:19 02/13/2002/13/2024 COMPR EHENS JITENDRA METAB OLIC PANEL sodium 143 mmol/ L 134-14 4 Not Available [facility] [address] [facility] [address], [place], [address], 02/15/2024 15:16:20 02/13/2002/13/2024 COMPR EHENS JITENDRA METAB OLIC PANEL potassium 4.4 mmol/ L 3.5-5. 2 Not Available [facility] [address] [facility] [address], [place], [address], 02/15/2024 15:16:20 02/13/2002/13/2024 COMPR EHENS JITENDRA METAB OLIC PANEL chloride 101 mmol/ L 98-107 Not Available [facility] [address], [place], [address], 02/15/2024 15:16:20 02/13/20 24 02/13/2024 COMPR EHENS JITENDRA METAB OLIC PANEL carbon dioxide (co2) 25.0 mmol/ L 18.0-2 9.0 Not Available [facility] [address] [facility] [address], [place], [address], 02/15/2024 15:16:20 02/13/2002/13/2024 COMPR EHENS JITENDRA METAB OLIC PANEL glucose 93 mg/dL 65-99 Colette l Fasti n - 99 mg/dL Impai red Fasti n - 125 mg/dL Diagn ostic of Diabe magaly: => 126 mg/dL Ameri can Diabe magaly Assoc iatio n, 2007 Not Available [facility] [address] [facility] [address], [place], [address], 02/15/2024 15:16:20 02/13/2002/13/2024 COMPR EHENS JITENDRA METAB OLIC PANEL urea nitrogen (BUN) 6 mg/dL 8-23 low Not Available [facility] [address] [facility] [address], [place], [address], 02/15/2024 15:16:20 02/13/20 24 02/13/2024 COMPR EHENS JITENDRA METAB OLIC PANEL creatinine 0.68 mg/dL 0.57-1 .00 Not Available [facility] [address] [facility] [address], [place], [address], 02/15/2024 15:16:20 02/13/20 24 02/13/2024 COMPR EHENS JITENDRA METAB OLIC PANEL eGFR 90 mL/mi nute/ 1.73_ m2 >59 MDRD Study Equat ion: The calcu lated GFR is NOT appli cable for pedia tric (< 18 years old) and > 70 year old patie nts and patie nts that are NOT of [place] . Not Available [facility] [address] [facility] [address], [place], [address], 02/15/2024 15:16:20 02/13/20 24 02/13/2024 COMPR EHENS JITENDRA METAB OLIC PANEL calcium 9.5 mg/dL 8.7-10 .3 Not Available [facility] [address] [facility] [address], [place], [address], 02/15/2024 15:16:20 02/13/2002/13/2024 COMPR EHENS JITENDRA METAB OLIC PANEL protein, total 7.7 gm/dL 6.4-8. 3 Not Available [facility] [address] [facility] [address], [place], [address], 02/15/2024 15:16:20 02/13/2002/13/2024 COMPR EHENS JITENDRA METAB OLIC PANEL albumin 4.7 gm/dL 3.5-5. 2 Not Available [facility] [address] [facility] [address], [place], [address], 02/15/2024 15:16:20 02/13/2002/13/2024 COMPR EHENS JITENDRA METAB OLIC PANEL bilirubin, total 0.50 mg/dL 0.00-1 .20 Not Available [facility] [address] [facility] [address], [place], [address], 02/15/2024 15:16:20 02/13/2002/13/2024 COMPR EHENS JITENDRA METAB OLIC PANEL alkaline phosphatase (ALP) 56 U/L 39-117 Not Available [facility] [address] [facility] [address], [place], [address], 02/15/2024 15:16:20 02/13/2002/13/2024 COMPR EHENS JITENDRA METAB OLIC PANEL aspartate aminotransfe rase (AST) 32 U/L 0-32 Not Available [facility] [address] [facility] [address], [place], [address], 02/15/2024 15:16:20 02/13/20 24 02/13/2024 COMPR EHENS JITENDRA METAB OLIC PANEL alanine aminotransfe rase (ALT) 22 U/L 0-33 Not Available [facility] [address] [facility] [address], [place], [address], 02/15/2024 15:16:20 02/13/20 24 02/13/2024 COMPR EHENS JITENDRA METAB OLIC PANEL A/G ratio (calculated) 1.6 ratio 1.0-2. 7 Not Available [facility] [address] [facility] [address], [place], [address], 02/15/2024 15:16:20 02/13/20 24 02/13/2024 COMPR EHENS JITENDRA METAB OLIC PANEL globulin (calculated) 3.0 gm/dL 1.5-3. 8 Not Available [facility] [address] [facility] [address], [place], [address], 02/15/2024 15:16:20 02/13/20 24 02/13/2024 COMPR EHENS JITENDRA METAB OLIC PANEL BUN/creatini ne ratio (calculated) 8.8 ratio 8.0-20 .0 Not Available [facility] [address] [facility] [address], [place], [address], 02/15/2024 15:16:20 02/13/20 24 02/13/2024 COMPR EHENS JITENDRA METAB OLIC PANEL serum hemolysis index SLIGHT LY HEMOLY ZED index normal abnormal Not Available [facility] [address] [facility] [address], [place], [address], 02/15/2024 15:16:20 02/13/20 24 02/13/2024 LIPID PANEL W/ CALC. LDL cholesterol, total 159 mg/dL 100-19 9 Not Available [facility] [address] [facility] [address], [place], [address], 02/15/2024 15:16:21 02/13/20 24 02/13/2024 LIPID PANEL W/ CALC. LDL HDL cholesterol 74 mg/dL =>40 Not Available [facility] [address] [facility] [address], [place], [address], 02/15/2024 15:16:21 02/13/20 24 02/13/2024 LIPID PANEL W/ CALC. LDL LDL cholesterol (calculated) 67 mg/dL 0-99 Not Available [facility] [address] [facility] [address], [place], [address], 02/15/2024 15:16:21 02/13/20 24 02/13/2024 LIPID PANEL W/ CALC. LDL triglyceride s 90 mg/dL 50-149 Not Available [facility] [address] [facility] [address], [place], [address], 02/15/2024 15:16:21 02/13/20 24 02/13/2024 LIPID PANEL W/ CALC. LDL chol/HDL ratio (calculated) 2.15 ratio 0.00-5 .00 Not Available [facility] [address] [facility] [address], [place], [address], 02/15/2024 15:16:21 02/13/20 24 02/13/2024 LIPID PANEL W/ CALC. LDL VLDL cholesterol (calculated) 18 mg/dL 5-40 Not Available [facility] [address] [facility] [address], [place], [address], 02/15/2024 15:16:21 02/13/2002/13/2024 THYRO ID-ST IM. HORMO NE (TSH) thyroid-stim . hormone (TSH), hs 0.94 uIU/m L 0.27-4 .20 Not Available [facility] [address] [facility] [address], [place], [address], 02/15/2024 15:16:22 02/13/20 24 02/13/2024 VITAM IN B12 vitamin B12 526 pg/mL 232-12 45 Not Available [facility] [address] [facility] [address], [place], [address], 02/15/2024 15:16:23 02/13/20 24 02/15/2024 QUANT IFERO [...] ated. Conta cted Ismet a Not Available [facility] [address] [facility] [address], [place], [address], 02/15/2024 15:16:24 02/13/20 24 02/15/2024 QUANT IFERO N - TB GOLD PLUS quantiferon- TB gold plus TEST NOT PERFOR MED. normal Test not perfo rmed Not Available [facility] [address] [facility] [address], [place], [address], 02/15/2024 15:16:24 05/13/19 25 05/13/2024 HEMOG LOBIN A1C hemoglobin A1C 5.8 % 4.8-5. 6 high COLETTE L RANGE BASED ON ALVIN COL 2 (DCCT /NGSP ): Non-D iabet ic: < 5.7% Pre-D iabet es: 5.7 - 6.4% Diabe magaly: => 6.5% GLYCE ZIGGY CONTR OL: < 7.0% Not Available [facility] [address] [facility] [address], [place], [address], 05/14/2024 16:23:11 05/13/19 25 05/13/2024 HEMOG LOBIN A1C estimated average glucose 119 Not Available [facility] [address], [place], [address], 05/14/2024 16:23:11 05/13/19 25 05/13/2024 CBC WITH AUTO- DIFFE RENTI AL WBC 10.3 10*3/ uL 3.4-10 .8 Not Available [facility] [address], [place], [address], 05/14/2024 16:23:12 05/13/19 25 05/13/2024 CBC WITH AUTO- DIFFE RENTI AL RBC 4.94 10*6/ uL 3.80-5 .30 Not Available [facility] [address], [place], [address], 05/14/2024 16:23:12 05/13/19 25 05/13/2024 CBC WITH AUTO- DIFFE RENTI AL HGB 13.6 g/dL 11.1-1 5.9 Not Available [facility] [address], [place], [address], 05/14/2024 16:23:12 05/13/19 25 05/13/2024 CBC WITH AUTO- DIFFE RENTI AL HCT 43.1 % 34.0-4 6.6 Not Available [facility] [address], [place], [address], 05/14/2024 16:23:12 05/13/19 25 05/13/2024 CBC WITH AUTO- DIFFE RENTI AL MCV 87 fL 79-97 Not Available [facility] [address], [place], [address], 05/14/2024 16:23:12 05/13/19 25 05/13/2024 CBC WITH AUTO- DIFFE RENTI AL MCH 27.5 pg 26.6-3 3.0 Not Available [facility] [address], [place], [address], 05/14/2024 16:23:12 05/13/19 25 05/13/2024 CBC WITH AUTO- DIFFE RENTI AL MCHC 31.6 g/dL 31.5-3 5.7 Not Available [facility] [address], [place], [address], 05/14/2024 16:23:12 05/13/19 25 05/13/2024 CBC WITH AUTO- DIFFE RENTI AL RDW 13.9 % 11.5-1 4.5 Not Available [facility] [address] [facility], [place], [address], 05/14/2024 16:23:12 05/13/19 25 05/13/2024 CBC WITH AUTO- DIFFE RENTI AL platelets 260 10*3/ uL 150-40 0 Not Available [facility] [address] [facility] [address], [place], [address], 05/14/2024 16:23:12 05/13/19 25 05/13/2024 CBC WITH AUTO- DIFFE RENTI AL MPV 12 fL 9-13 Not Available [facility] [address] [facility] [facility] [address], [place], [address], 05/14/2024 16:23:12 05/13/19 25 05/13/2024 CBC WITH AUTO- DIFFE RENTI AL neutrophils 75.2 % 40.0-7 4.0 high Not Available [facility] [address] [facility], [place], [address], 05/14/2024 16:23:12 05/13/19 25 05/13/2024 CBC WITH AUTO- DIFFE RENTI AL absolute neutrophils 7.74 10*3/ uL 1.40-7 .00 high Not Available [facility] [address], [place], [address], 05/14/2024 16:23:12 01/13/20 25 05/13/2024 CBC WITH AUTO- DIFFE RENTI AL lymphocytes 12.6 % 14.0-4 6.0 low Not Available [facility] [address] [facility] [address], [place], [address], 05/14/2024 16:23:12 05/13/19 25 05/13/2024 CBC WITH AUTO- DIFFE RENTI AL absolute lymphocytes 1.30 10*3/ uL 0.70-3 .10 Not Available [facility] [address] [facility] [address], [place], [address], 05/14/2024 16:23:12 05/13/19 25 05/13/2024 CBC WITH AUTO- DIFFE RENTI AL monocytes 5.2 % 4.0-12 .0 Not Available [facility] [address] [facility] [address], [place], [address], 05/14/2024 16:23:12 05/13/19 25 05/13/2024 CBC WITH AUTO- DIFFE RENTI AL absolute monocytes 0.53 10*3/ uL 0.10-0 .90 Not Available [facility] [address] [facility] [address], [place], [address], 05/14/2024 16:23:12 05/13/19 25 05/13/2024 CBC WITH AUTO- DIFFE RENTI AL eosinophils 6.1 % 0.0-5. 0 high Not Available [facility] [address] [facility] [address], [place], [address], 05/14/2024 16:23:12 05/13/19 25 05/13/2024 CBC WITH AUTO- DIFFE RENTI AL absolute eosinophils 0.63 10*3/ uL 0.00-0 .40 high Not Available [facility] [address] [facility] [address], [place], [address], 05/14/2024 16:23:12 05/13/19 25 05/13/2024 CBC WITH AUTO- DIFFE RENTI AL basophils 0.7 % 0.0-3. 0 Not Available [facility] [address] [facility] [address], [place], [address], 05/14/2024 16:23:12 05/13/19 25 05/13/2024 CBC WITH AUTO- DIFFE RENTI AL absolute basophils 0.07 10*3/ uL 0.00-0 .20 Not Available [facility] [address] [facility] [address], [place], [address], 05/14/2024 16:23:12 05/13/19 25 05/13/2024 CBC WITH AUTO- DIFFE RENTI AL imm. gran. 0.2 % 0.0-2. 0 Not Available [facility] [address] [facility] [address], [place], [address], 05/14/2024 16:23:12 05/13/19 25 05/13/2024 CBC WITH AUTO- DIFFE RENTI AL abs. imm. gran. 0.02 10*3/ uL 0.00-0 .10 Not Available [facility] [address] [facility] [address], [place], [address], 05/14/2024 16:23:12 05/13/19 25 05/13/2024 COMPR EHENS JITENDRA METAB OLIC PANEL sodium 143 mmol/ L 134-14 4 Not Available [facility] [address] [facility] [address], [place], [address], 05/14/2024 16:23:13 05/13/19 25 05/13/2024 COMPR EHENS JITENDRA METAB OLIC PANEL potassium 4.3 mmol/ L 3.5-5. 2 Not Available [facility] [address] [facility] [address], [place], [address], 05/14/2024 16:23:13 05/13/19 25 05/13/2024 COMPR EHENS JITENDRA METAB OLIC PANEL chloride 103 mmol/ L 98-107 Not Available [facility] [address] [facility] [address], [place], [address], 05/14/2024 16:23:13 05/13/19 25 05/13/2024 COMPR EHENS JITENDRA METAB OLIC PANEL carbon dioxide (co2) 30.0 mmol/ L 18.0-2 9.0 high Not Available [facility] [address] [facility] [address], [place], [address], 05/14/2024 16:23:13 05/13/19 25 05/13/2024 COMPR EHENS JITENDRA METAB OLIC PANEL glucose 92 mg/dL 65-99 Colette l Fasti n - 99 mg/dL Impai red Fasti n - 125 mg/dL Diagn ostic of Diabe magaly: => 126 mg/dL Ameri can Diabe magaly [facility] i[facility] n, 2007 Not Available [facility] [address] [facility] [address], [place], [address], 05/14/2024 16:23:13 05/13/19 25 05/13/2024 COMPR EHENS JITENDRA METAB OLIC PANEL urea nitrogen (BUN) 8 mg/dL 8-23 Not Available [facility] [address] [facility] [address], [place], [address], 05/14/2024 16:23:13 05/13/19 25 05/13/2024 COMPR EHENS JITENDRA METAB OLIC PANEL creatinine 0.57 mg/dL 0.57-1 .00 Not Available [facility] [address] [facility] [address], [place], [address], 05/14/2024 16:23:13 05/13/19 25 05/13/2024 COMPR EHENS JITENDRA METAB OLIC PANEL eGFR 93 mL/mi nute/ 1.73_ m2 >59 MDRD Study Equat ion: The calcu lated GFR is NOT appli cable for pedia tric (< 18 years old) and > 70 year old patie nts and patie nts that are NOT of [place] . Not Available [facility] [address], [place], [address], 05/14/2024 16:23:13 05/13/19 25 05/13/2024 COMPR EHENS JITENDRA METAB OLIC PANEL calcium 9.4 mg/dL 8.7-10 .3 Not Available [facility] [address], [place], [address], 05/14/2024 16:23:13 05/13/19 25 05/13/2024 COMPR EHENS JITENDRA METAB OLIC PANEL protein, total 7.0 gm/dL 6.4-8. 3 Not Available [facility] [address], [place], [address], 05/14/2024 16:23:13 05/13/19 25 05/13/2024 COMPR EHENS JITENDRA METAB OLIC PANEL albumin 4.2 gm/dL 3.5-5. 2 Not Available [facility] [address], [place], [address], 05/14/2024 16:23:13 05/13/19 25 05/13/2024 COMPR EHENS JITENDRA METAB OLIC PANEL bilirubin, total 0.50 mg/dL 0.00-1 .20 Not Available [facility] [address] [facility] [address], [place], [address], 05/14/2024 16:23:13 05/13/19 25 05/13/2024 COMPR EHENS JITENDRA METAB OLIC PANEL alkaline phosphatase (ALP) 61 U/L 39-117 Not Available [facility] [address], [place], [address], 05/14/2024 16:23:13 05/13/19 25 05/13/2024 COMPR EHENS JITENDRA METAB OLIC PANEL aspartate aminotransfe rase (AST) 38 U/L 0-32 high Not Available [facility] [address] [facility] [address], [place], [address], 05/14/2024 16:23:13 05/13/19 25 05/13/2024 COMPR EHENS JITENDRA METAB OLIC PANEL alanine aminotransfe rase (ALT) 37 U/L 0-33 high Not Available [facility] [address] [facility] [address], [place], [address], 05/14/2024 16:23:13 05/13/19 25 05/13/2024 COMPR EHENS JITENDRA METAB OLIC PANEL A/G ratio (calculated) 1.5 ratio 1.0-2. 7 Not Available [facility] [address] [facility] [address], [place], [address], 05/14/2024 16:23:13 05/13/19 25 05/13/2024 COMPR EHENS JITENDRA METAB OLIC PANEL globulin (calculated) 2.8 gm/dL 1.5-3. 8 Not Available [facility] [address] [facility] [address], [place], [address], 05/14/2024 16:23:13 05/13/19 25 05/13/2024 COMPR EHENS JITENDRA METAB OLIC PANEL BUN/creatini ne ratio (calculated) 14.0 ratio 8.0-20 .0 Not Available [facility] [address] [facility] [address], [place], [address], 05/14/2024 16:23:13 05/13/19 25 05/13/2024 COMPR EHENS JITENDRA METAB OLIC PANEL serum hemolysis index NORMAL index normal Not Available [facility] [address] [facility] [address], [place], [address], 05/14/2024 16:23:13 05/13/19 25 05/13/2024 FREE T4 thyroxine (T4), free 0.88 NG/dL 0.82-1 .77 Not Available [facility] [address] [facility] [address], [place], [address], 05/14/2024 16:23:14 05/13/19 25 05/13/2024 LIPID PANEL W/ LDL MJ STERO L DIREC T cholesterol, total 158 mg/dL 100-19 9 Not Available [facility] [address], [place], [address], 05/14/2024 16:23:15 05/13/19 25 05/13/2024 LIPID PANEL W/ LDL MJ STERO L DIREC T HDL cholesterol 71 mg/dL =>40 Not Available [facility] [address], [place], [address], 05/14/2024 16:23:15 05/13/19 25 05/13/2024 LIPID PANEL W/ LDL MJ STERO L DIREC T LDL cholesterol (direct) 70 mg/dL 0-99 Not Available [facility] [address], [place], [address], 05/14/2024 16:23:15 05/13/19 25 05/13/2024 LIPID PANEL W/ LDL MJ STERO L DIREC T triglyceride s 82 mg/dL 50-149 Not Available [facility] [address], [place], [address], 05/14/2024 16:23:15 05/13/19 25 05/13/2024 LIPID PANEL W/ LDL MJ STERO L DIREC T VLDL cholesterol (calculated) 16 mg/dL 5-40 Not Available [facility] [address], [place], [address], 05/14/2024 16:23:15 05/13/19 25 05/13/2024 LIPID PANEL W/ LDL MJ STERO L DIREC T chol/HDL ratio (calculated) 2.23 ratio 0.00-5 .00 Not Available [facility] [address], [place], [address], 05/14/2024 16:23:15 05/13/19 25 05/13/2024 LIPID PANEL W/ LDL MJ STERO L DIREC T LDL/HDL ratio (calculated) 0.99 ratio 0.00-3 .60 LDL/H DL Ratio Male Femal e 1/2 Avg. Risk 1.0 1.5 Avg. Risk 3.6 3.2 2x Avg. Risk 6.2 5.0 3x Avg. Risk 8.0 6.1 Not Available [facility] [address] [facility] [address], [place], [address], 05/14/2024 16:23:15 05/13/19 25 05/13/2024 THYRO ID-ST IM. HORMO NE (TSH) thyroid-stim . hormone (TSH) 2.11 uIU/m L 0.27-4 .20 Not Available [facility] [address] [facility] [address], [place], [address], 05/14/2024 16:23:15 06/04/19 25 06/04/2024 ALT (SGPT ) alanine aminotransfe rase (ALT) 23 U/L 0-33 Not Available [facility] [address] [facility] [address], [place], [address], 06/05/2024 15:34:48 06/04/19 25 06/04/2024 ALT (SGPT ) serum hemolysis index NORMAL index normal Not Available [facility] [address] [facility] [address], [place], [address], 06/05/2024 15:34:48 06/04/19 25 06/04/2024 AST (SGOT ) aspartate aminotransfe rase (AST) 30 U/L 0-32 Not Available [facility] [address] [facility] [address], [place], [address], 06/05/2024 15:34:49 06/04/19 25 06/04/2024 AST (SGOT ) serum hemolysis index NORMAL index normal Not Available [facility] [address], [place], [address], 06/05/2024 15:34:49 01/11/2001/10/2025 carli metry testi ng* Spirometry Not Available [address] [place], [place], [address], 01/09/2025 11:53:24 05/13/19 25 05/13/2024 elect rocar diogr am No observ ation record ed. [address] [place], [place], [address], 06/04/2024 11:03:23 05/13/19 25 05/13/2024 elect rocar diogr am No observ ation record ed. [address] [place], [place], [address], 06/04/2024 11:03:24 10/18/19 25 08/06/2024 CT, chest , w/o contr ast No observ ation record ed. [facility] [id number], [place], [address], 01/09/2025 11:40:19 01/11/2001/09/2025 carli metry testi ng* No observ ation record ed. [email or web address] [address] [place], [place], [address], 01/12/2025 18:41:45 01/18/2001/08/2025 CT, abdom en + pelvi s, w/ contr ast No observ ation record ed. [place] [address], [place], [address], 01/21/2025 23:17:43 Result Notes None recorded. Problems Name Problem SNOMED Code Status Onset Date Resolution Date Notes Provider Name and Address Organization Details Recorded Time Palpitat ions 55784355 Completed 201303/18/2018 MD Linnea Jefferson[address] [place], [place], [address] , [facility] 8 18:36:47 Fibrosis of lung 38209918 Completed 201303/18/2018 MD Candace Jefferson [address] [place], [place], [address] , [facility] 9 18:46:01 Hoarse 14242627 Completed 201403/18/2018 MD Linnea Jefferson[address] [place], [place], [address] , [facility] 8 18:41:49 Disorder of lung 21014609 Completed 201403/18/2018 MD Candace Jefferson [address] [place], [place], [address] , [facility] 8 18:37:02 Depressi ve disorder 73887896 Completed 201403/18/2018 MD Linnea Jefferson[address] [place], [place], [address] , [facility] 8 18:37:35 Imaging result abnormal 186355693 Completed 201403/18/2018 MD Candace Jefferson [address] [place], [place], [address] , [facility] 8 18:36:31 Benign hyperten du 48012595 Active 2014 MD Candace Jefferson [address] [place], [place], [address] , [facility] 8 12:16:19 Recurren t major depressi ve episodes , moderate 938914840 Completed 201403/18/2018 MD Candace Jefferson [address] [place], [place], [address] , [facility] 8 18:37:29 Dyslipid emia 472296197 Completed 201408/21/2019 MD Linnea Jefferosn[address] [place], [place], [address] , [facility] 0 12:20:51 Irregula r heart rate Active 2014 MD Linnea Jefferson[address] [place], [place], [address] , [facility] 8 12:16:19 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 20086628053 07 Active 2014 MD Linnea Jefferson[address] [place], [place], [address] , [facility] 8 12:16:19 Dyspnea on exertion 75163238 Completed 201403/18/2018 MD Linnea Jefferson[address] [place], [place], [address] , [facility] 8 18:43:57 Rib pain 358024369 Completed 201503/18/2018 Naila Gudino MD [address] [place], [place], [address] , [facility] 8 18:40:21 Chronic obstruct jitendra pulmonar y disease 34485509 Completed 201503/18/2018 MD Linnea Jefferson[address] [place], [place], [address] , [facility] 8 18:40:06 Gastroes ophageal reflux disease 351609306 Active 2015 MD Candace Jefferson [address] [place], [place], [address] , [facility] 8 12:16:19 Knee pain Completed 201503/18/2018 Naila Gudino MD [address] [place], [place], [address] , [facility] 8 18:40:24 Palpitat ions - rapid 982478649 Completed 201603/18/2018 MD Linnea Jefferson[address] [place], [place], [address] , [facility] 8 18:40:17 Dizzines s 655994397 Completed 201603/18/2018 MD Linnea Jefferson[address] [place], [place], [address] , [facility] 8 18:41:33 Low blood pressure 87461428 Active 2016 MD Linnea Jefferson[address] [place], [place], [address] , [facility] 8 12:16:19 Tenderne ss of right upper quadrant of abdomen 795508914 Completed 201603/18/2018 Naila Gudino MD [address] [place], [place], [address] , [facility] 8 18:41:45 Hernia of anterior abdomina l wall 199008956 Active 2016 Naila Gudino MD [address] [place], [place], [address] , [facility] 8 12:16:19 Hypogamm aglobuli nemia 803907452 Active 2016 once a month infusion s Naila Gudino MD [address] [place], [place], [address] , [facility] 8 12:16:19 Intersti tial lung disease 207050891 Completed 201603/18/2018 Naila Gudino MD [address] [place], [place], [address] , [facility] 5 12:56:58 Neuropat hy 745250645 Active 2016 Naila Gudino MD [address] [place], [place], [address] , [facility] 5 14:06:18 Disorder of trachea 67659954 Completed 201603/18/2018 collapse d trachea Naila Gudino MD [address] [place], [place], [address] , [facility] 8 18:37:51 Hypothyr oidism 93909281 Active 2016 Naila Gudino MD [address] [place], [place], [address] , [facility] 8 12:16:19 Asthma 717671947 Active 2016 mod , persista nt Naila Gudino MD [address] [place], [place], [address] , [facility] 8 18:43:38 Mixed anxiety and depressi ve disorder 935160698 Active 2016 Naila Gudino MD [address] [place], [place], [address] , [facility] 8 12:16:19 Hyperlip idemia 10773642 Active 2016 Naila Gudino MD [address] [place], [place], [address] , [facility] 8 12:16:19 Diarrhea 40793039 Completed 201603/18/2018 Naila Gudino MD [address] [place], [place], [address] , [facility] 8 18:44:01 Obstruct jitendra sleep apnea syndrome 84875521 Active 2017 mild on sleep study 10/2016 Naila Gudino MD [address] [place], [place], [address] , [facility] 8 12:16:19 Atrophic gastriti s 16960033 Active 2017 autoimmu ne , on GI note 08/15/17 MD Candace Jefferson [address] [place], [place], [address] , [facility] 8 18:08:52 Garrett' s esophagu s 143476812 Active 2017 MD Candace Jefferson [address] [place], [place], [address] , [facility] 8 17:03:05 Vitamin D deficien cy 52431421 Active 2017 MD Candace Jefferson [address] [place], [place], [address] , [facility] 8 17:05:04 Vitamin B12 deficien cy (non anemic) 63443565 Active 2017 MD Candace Jefferson [address] [place], [place], [address] , [facility] 8 17:05:37 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 2017 per pulm notes 03/13/18 MD Candace Jefferson [address] [place], [place], [address] , [facility] 8 18:38:20 Vocal cord dysfunct ion 203914138 Active 2017 per pulm 03/13/18 MD Candace Jefferson [address] [place], [place], [address] , [facility] 8 18:38:45 Bipolar disorder 97426799 Active 2017 MD Candace Jefferson [address] [place], [place], [address] , [facility] 8 18:39:15 Nonspeci fic intersti tial pneumoni tis 164701946 Active 2017 Mild per pulm 03/13/18 MD Candace Jefferson [address] [place], [place], [address] , [facility] 8 18:43:07 Body mass index 20-24 - normal 804117580 Active 2018 Kirstie Montano elsa, [facility] 9 11:20:57 Steatoti c liver disease 949604013 [address] abd 01/22/19 MD Candace Jefferson [address] [place], [place], [address] , [facility] 9 18:45:36 Fibrosis of lung 64670424 Active [address] abd 01/22/19 MD Candace Jefferson [address] [place], [place], [address] , [facility] 9 18:46:01 Finding of pancreas 579377824 Active [address] abd 01/22/19 MD Candace Jefferson [address] [place], [place], [address] , [facility] 9 18:47:25 Neoplasm of pancreas 432923518 Active 2018 MD Candace Jefferson [address] [place], [place], [address] , [facility] 9 13:37:53 Osteoart hritis 008868406 Active 2019 MD Candace Jefferson [address] [place], [place], [address] , [facility] 0 12:21:55 Osteopen ia 901475147 Active 2020 MD Candace Jefferson [address] [place], [place], [address] , [facility] 1 15:37:19 Osteoart hritis of right knee joint 35218390160 9100 Active 2020 MD Candace Jefferson [address] [place], [place], [address] , [facility] 1 12:31:27 Cyst of skin 541867805 Active 2021 MD Candace Jefferson [address] [place], [place], [address] , [facility] 2 13:37:48 Mixed hyperlip idemia 596425474 Active 2021 MD Candace Jefferson [address] [place], [place], [address] , [facility] 2 15:07:19 Menopaus e Active 2021 MD Candace Jefferson [address] [place], [place], [address] , [facility] 2 12:55:48 Coronary arterios clerosis 67860340 Active 2022 MD Candace Jefferson [address] [place], [place], [address] , [facility] 3 13:08:33 Low back pain 899256082 Active 2022 MD Candace Jefferson [address] [address], [place], [address] , [facility] 3 13:14:18 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 80649078825 9106 Active 2022 MD Candace Jefferson [address], [place], [address] , [facility] 3 21:22:43 Compress ion fracture of thoracic vertebra 64711273961 04 Active 2022 MD Candace Jefferson [address], [place], [address] , [facility] 3 11:27:50 Compress ion fracture of lumbar spine 771527655 Active 2022 MD Candace Jefferson [address], [place], [address] , [facility] 3 11:27:51 Cyst of kidney 741618014 Active 2022 MD Candace Jefferson [address], [place], [address] , [facility] 3 11:35:26 Osteopor osis 35119271 Active 2022 MD Candace Jefferson [address], [place], [address] , [facility] 3 17:21:54 Chronic hypotens ion 83680152 Active 2022 MD Candace Jefferson [address], [place], [address] , [facility] 3 17:13:39 History of SARS-CoV -2 51114281646 8221327 Active 2023 MD Candace Jefferson [address], [place], [address] , [facility] 4 13:46:36 Gastroes ophageal reflux disease without esophagi tis 464186220 Active 2023 MD Candace Jefferson [address], [place], [place], , [facility] 4 17:52:36 Long-ter m drug therapy Active 2023 MD Candace Jefferson [address], [place], [address] , [facility] 4 13:19:34 Intersti tial lung disease 325378508 Active 2024 MD Candace Jefferson [address], [place], [address] , [facility] 5 12:56:58 Chronic constipa tion 772169373 Active 2024 MD Candace Jefferson [address], [place], , [facility] 5 13:05:35 Liver enzymes level above referenc e range 652075186 Active 2024 MD Candace Jefferson [facility] [address], [place], [address] , [facility] 5 00:09:31 Fracture of tenth thoracic vertebra 251144452 Active 2024 MD Candace Jefferson [facility] [address], [place], [address] , [facility] 5 14:00:36 Long-ter m current use of drug therapy 214776343 Active 2024 MD Candace Jefferson [facility] [address], [place], [address] , [facility] 11:56:25 Problem Notes None recorded. Procedures Surgical History Date Name Laterality Status Provider Name and Address Organization Details Recorded Time 023 Colonoscopy completed MD Candace Jefferson [facility] [address], [place], [address], [facility] 10/23/2022 18:50:41 018 Cystourethroscopy completed MD Candace Jefferson [facility] [address], [place], [address], [facility] 09/29/2017 12:09:21 018 Date of Last Mammogram completed Karly Sandoval [facility] 11/09/2017 16:32:33 018 Date of Last Colonoscopy completed Michelle Varela [facility] 11/25/2020 12:15:28 018 Colonoscopy completed MD Candace Jefferson [facility] [address], [place], [address], [facility] 08/28/2017 17:10:59 975 Total Hysterectomy completed Zhanna Sandoval [facility] 11/07/2016 11:21:31 Cholecystectomy completed CLAUDIA BOOTH [facility] 11/07/2016 11:14:45 Imaging Results None recorded. Procedure Notes None recorded. Medical Equipment None Reported. Allergies Allergen ID Allergen Name Allergen Category Reaction Reaction Severity Criticality Documentation Date Start Date Code Code System Note Provider Name and Address Organization Details Recorded Time 83052 doxycycli ne Not available nausea Not available Not available 08/24/2024 3640 RxNorm Naila Gudino MD [address] [facility] [address], [place], [address], [facility] 5 20:26:14 64636 benzonata te medicatio n dyspnea rash Not available Not available high 10/11/20242017 25922 RxNorm Breat anne-marie Diffi culty unrec ogniz ed react ion (text : Nause a & Vomit ing, code: 93349 [id number]) (from exter nal sourc e) Not Available [employer] - External Data Service - prod 5 03:09:29 75140 hydrocodo ne Not available other Not available low 10/11/20242019 5489 RxNorm caus es littl e blood spots under my skin Not Available [employer] - External Data Service - prod 5 03:09:29 64011 nitrofura ntoin, macrocrys tals / nitrofura ntoin, monohydra te medicatio n anaphylax is Not available high 10/11/20242020 95826 2 RxNorm Not Available [employer] - External Data Service - prod 5 03:09:29 5800 codeine medicatio n Not available Not available Not available 11/07/20162012 2670 RxNorm Other react ions and sever ities : 'Shor tness of breat h - Sever e', and 'Naus ea And Vomit ing - Sever e'. Naila Gudino MD [address] [facility] [address], [place], [address], [facility] 8 12:12:02 5801 Macrobid medicatio n anaphylax is severe Not available 11/07/2016 29178 1 RxNorm resp distr ess Zhannatiago Sadnoval [facility] 7 11:17:38 6980 nitrofura ntoin medicatio n Not available Not available Not available 10/05/20172012 7454 RxBc Gudino MD [address] [facility] [address], [place], [address], [facility] 8 12:12:02 7260 Alisson King medicatio n rash Not available Not available 11/09/2017 46838 4 MD Candace Ramirez [facility] [address], [place], [address], [facility] 8 17:00:04 Medications Name Sig Start Date Stop Date Status Note LastModified by Organization Details LastModified Time Prescriptio n - Prior Authorizati on Request 07/28 completed Not Available Not Available Not Available Refresh Tears 0.5 % eye drops Apply 1 drop 3 times a day by ophthalmi c route. 05/13 completed Not Available Not Available Not Available quetiapine 25 mg tablet 10/11 completed Not Available Not Available Not Available fluconazole [...] Not Available doxycycline hyclate 100 mg capsule Take 1 capsule twice a day by oral route. 09/04 completed Not Available Not Available Not Available [...] Available Not Available alprazolam 1 mg tablet Take 1 tablet 3 times a day by oral route. active Not Available [...] every day by oral route at bedtime. 01/16 completed Not Available Not Available Not Available prednisone 20 mg tablet TAKE 1 TABLET BY MOUTH EVERY DAY 02/09 completed Not Available Not Available Not Available isosorbide mononitrate ER 30 mg tablet,exte nded release 24 hr Take 1 tablet every day by oral route. 12/29 completed Not Available Not Available Not Available sertraline 100 mg tablet TAKE 1 TABLET BY MOUTH EVERY DAY 01/21 completed Not Available Not Available Not Available [...] Available Not Available olanzapine 2.5 mg tablet 10/11 completed Not Available Not Available Not Available peg-electro [...] Available Not Available Not Available pantoprazol e 20 mg tablet,pamela yed release Take 1 tablet every day by oral route in the morning. active Not Available Not Available No t Available levothyroxi ne 75 mcg tablet TAKE 1 TABLET BY MOUTH ONCE DAILY 01/09 completed Not Available Not Available Not Available ciclopirox 8 % topical solution APPLY TO AFFECTED AREA ONCE DAILY PREFERABL Y AT BEDTIME OR 8 HOURS BEFORE WASHING 2024 active Not Available Not Available Not Avai lable levothyroxi ne 100 mcg tablet TAKE 1 TABLET BY MOUTH EVERY DAY IN THE MORNING active Not Available Not Available No t Available isosorbide mononitrate ER 60 mg tablet,exte nded release 24 hr Take 1 tablet every day by oral route in the morning. active Not Available Not Available No t Available levothyroxi ne 88 mcg tablet TAKE 1 TABLET BY MOUTH ONCE DAILY 01/21 completed Not Available Not Available Not Available amoxicillin 875 mg tablet 04/20 completed Not Available Not Available Not Available ziprasidone 20 mg capsule TAKE 1 CAPSULE BY MOUTH EVERY MORNING AND 2 CAPSULES BY MOUTH EVERY NIGHT active Not Available Not Available No t Available Deep Sea Nasal 0.65 % spray aerosol Take 2 sprays 5 times a day by nasal route. active Not Available Not Available No t Available famotidine 20 mg tablet Take 1 tablet every day [...] day by oral route in the morning. 01/16 completed Not Available Not Available Not Available cyanocobala min (vit B-12) 1,000 mcg/mL [...] TAKE 1 TABLET BY MOUTH EVERY DAY 01/21 completed Not Available Not Available Not Available montelukast 10 mg tablet TAKE 1 TABLET BY MOUTH EVERY EVENING active Not Available Not Available No t Available midodrine 2.5 mg tablet Take 1 tablet twice a day by oral route. 02/12 completed Not Available Not Available Not Available zolpidem 5 mg tablet TAKE 1 TABLET BY MOUTH AT BEDTIME 10/11 completed Not Available Not Available Not Available ziprasidone 40 mg capsule Take 1 capsule every day by oral route at bedtime. 05/13 completed Not Available Not Available Not Available alprazolam 2 mg tablet 03/21 completed Not Available Not Available Not Available mirtazapine 15 mg tablet 10/11 completed Not Available Not Available Not Available ergocalcife rol (vitamin D2) 1,250 mcg (50,000 unit) capsule TAKE 1 CAPSULE BY MOUTH EVERY 2 WEEKS active Not Available Not Available No t Available Nasonex 50 mcg/actuati on Lorman Lorman 2 sprays every day by intranasa l [...] EVERY NIGHT AT BEDTIME NEEDED FOR INSOMNIA 01/21 completed Not Available Not Available Not Available [...] Not Available Not Available No t Available hydroxyzine HCl 10 mg tablet Take 1 tablet every day by oral route at bedtime. active Not Available Not Available No t Available cefdinir 300 mg capsule TAKE 1 CAPSULE BY MOUTH EVERY 12 HOURS 03/02 completed Not Available Not Available Not Available fluticasone propionate 50 mcg/actuati on nasal spray,suspe nsion INSTILL 1 SPRAY IN EACH NOSTRIL DAILY PRN active Not Available Not Available No t Available sertraline 50 mg tablet TAKE 1 TABLET BY MOUTH EVERY MORNING 10/11 completed Not Available Not Available Not Available [...] TAKE 1 TABLET BY MOUTH TWICE DAILY 01/21 completed Not Available Not Available Not Available Tylenol Extra Strength 500 mg tablet Take 1 tablet every 8 hours by oral route around the clock. 2021 active Not Available Not Available Not Avai lable neomycin-po lymyxin-hyd rocort 3.5 mg-10,000 unit/mL-1 % ear drops,susp INSTILL 4 DROPS INTO AFFECTED EAR(S) BY OTIC ROUTE 3 TIMES PER DAY 09/07 completed Not Available Not Available Not Available ziprasidone 20 mg/mL (final concentrati on) intramuscul ar solution Inject every 4 weeks by intramusc ular route. 11/25 completed per pt 30 U Not Available Not Available Not Available escitalopra m 10 mg tablet 10 mg by oral route. 03/21 completed Not Available Not Available Not Available ezetimibe 10 mg tablet TAKE 1 TABLET BY MOUTH ONCE DAILY active Not Available Not Available No [...] 1 CAPSULE BY MOUTH AT 8AM-NOON- 8PM 09/07 completed Not Available Not Available Not Available pregabalin 75 mg capsule 1 cap in AM and noon , then 2 cap @ [facility] active Not Available Not Available No t Available zolpidem ER 6.25 mg tablet,exte nded release,mul tiphase Take 1 tablet every day by oral route at bedtime. 01/09 completed Not Available Not Available Not Available Advair HFA 230 mcg-21 mcg/actuati on [...] Available Prolia 60 mg/mL subcutaneou s syringe Inject 1 mL by subcutane ous route for 180 days. active Not Available Not Available No t Available cyanocobala min (vit B-12) 5,[address] 1 tablet every day by sublingua l route. 11/15 completed Not Available Not Available Not Available Linzess 145 mcg capsule Take 1 capsule every day by oral route. active Not Available Not Available No t Available Stimulant Laxative Plus 8.6 mg-50 mg tablet TAKE 2 TABLETS BY MOUTH AT BEDTIME active Not Available Not Available No t Available Nasacort 55 mcg nasal spray aerosol Lorman 2 sprays every day by intranasa l [...] Not Available Vitals Date Recorded Body height Body mass index (BMI) Body weight Body temperature Heart rate Respiratory rate Systolic And Diastolic Provider Name and Address Organization Details Last Updated DateTime 5 157.48 cm 20.5 kg/m2 90596.3 5 g 97.6 [degF] 80 /min 18 /min 107/62 mm[Hg] Sheryl Bear [facility] 5 12:30:13 Date Recorded Body height Heart rate Respiratory rate Body temperature Body mass index (BMI) Body weight Systolic And Diastolic Provider Name and Address Organization Details Last Updated DateTime 5 157.48 cm 83 /min 18 /min 98.7 [degF] 20.5 kg/m2 76237.3 5 g 108/63 mm[Hg] Sheryl Bear [facility] 5 10:50:49 Date Recorded Body height Body mass index (BMI) Body weight Body temperature Respiratory rate Heart rate Systolic And Diastolic Provider Name and Address Organization Details Last Updated DateTime 5 157.48 cm 21.4 kg/m2 37178.3 1 g 97.5 [degF] 18 /min 61 /min 104/57 mm[Hg] Sheryl Bear [facility] 5 11:30:41 Date Recorded Body height Heart rate Respiratory rate Body temperature Body mass index (BMI) Body weight Systolic And Diastolic Provider Name and Address Organization Details Last Updated DateTime 5 157.48 cm 62 /min 18 /min 98.7 [degF] 21.2 kg/m2 18766.7 1 g 108/61 mm[Hg] Sheryl Bear [facility] 5 11:05:51 Date Recorded Body height Body temperature Respiratory rate Heart rate Body mass index (BMI) Body weight Systolic And Diastolic Provider Name and Address Organization Details Last Updated DateTime 4 157.48 cm 97.4 [degF] 18 /min 65 /min 21 kg/m2 44451.1 2 g 137/63 mm[Hg] Sheryl Gipson [facility] 12:54:03 Social History Question Answer Notes LastModified by Organizat ion Details LastModified Time Tobacco Smoking Status Former Smoker CLAUDIA hunter [facility] 11/07/2016 11:14:10 What Is Your Level Of Caffeine Consumption? [...] For COVID-19? No Information not available 08/21/2019 Have You Directly Handled Bats, Rodents, Or [...] Is Active? No Information not available 05/26/2020 Are There Any Guns Present In Your Home? No Information not available 05/26/2020 Hard Of Hearing Or Deaf In One Or Both Ears? No [email or web address] Information not available 11/07/2016 High Number Of Sexual Partners No Information not available 05/26/2020 History Of Inconsistent/no Condom Use No Information not available 05/26/2020 Legally Blind In One Or Both Eyes? No [email or web address] Information no t available 11/07/2016 Live Alone Or With Others? With Others [email or web address] Information not available 11/07/2016 Marital Status [email or web address] Informatio n not available 11/07/2016 What Was [...] Much Tobacco Do You Smoke? 1.5 PPD [email or web address] Information not available 10/11/2024 Do You Use Sunscreen Routinely? No Information not available 05/26/2020 How Many Years Have You Smoked Tobacco? 10 [email or web address] Information not available 11/07/2016 Have You Used IV Drugs? No Information not available 05/26/2020 Sex: Unknown Functional Status Question Answer Note LastModified by Organizat ion Details LastModified Time What is your level of alcohol consumption? Occasional [email or web address] Information not available 11/07/2016 Are you currently employed? No Information not available 11/07/2016 Are you able to care for yourself independently? Yes [email or web address] Information not available 11/07/2016 What is your occupation? retired [email or web address] Information not available 11/07/2016 Mental Status None recorded. Family [...] high-dose, trivalent, PF 8 completed Not Available [facility] 08/07/2022 15:45:03 Pneumococcal conjugate PCV 13 8 completed Not Available [facility] 08/07/2022 15:45:03 Tdap 9 completed Not Available [facility] 08/07/2022 15:45:03 zoster live 9 completed Not Available [facility] 08/07/2022 15:45:03 Influenza, split virus, trivalent, preservative 9 completed Not Available [facility] 08/07/2022 15:45:03 zoster recombinant 9 completed Not Available [facility] 08/07/2022 15:45:03 Influenza, split virus, quadrivalent, preservative 0 completed Not Available [facility] 08/07/2022 15:45:03 COVID-19, mRNA, LNP-S, PF, 100 mcg/0.5mL dose or 50 mcg/0.25mL dose 1 completed Not Available [facility] 08/07/2022 15:45:03 Influenza, split virus, quadrivalent, preservative 1 completed Not Available [facility] 08/07/2022 15:45:03 influenza, unspecified formulation 2 completed Not Available [facility] 08/07/2022 15:45:03 Influenza, high-dose, quadrivalent, PF 3 [facility] 12:08:40 Influenza, adjuvanted, trivalent, PF 4 completed [facility] [address], [address], [facility] 12/20/2023 19:03:42 influenza, unspecified formulation 4 completed MD Candace Jefferson [facility] [address], [facility] [address], [facility] 06/04/2024 11:12:38 Pneumococcal conjugate PCV 13 6 completed Not Available [facility] 08/07/2022 15:45:03 Influenza, split virus, quadrivalent, preservative 6 completed Not Available [facility] 08/07/2022 15:45:03 Influenza, high-dose, trivalent, PF 7 completed Not Available [facility] 08/07/2022 15:45:03 pneumococcal polysaccharide PPV23 7 completed Not Available [facility] 08/07/2022 15:45:03 Past Encounters Encounter ID Performer Location Encounter Start Date Encounter Closed Date Diagnosis/Indication Diagnosis SNOMED-CT Code Diagnosis ICD10 Code Diagnosis IMO Codes Diagnosis Note [id number] ZHANNA SANDOVAL APN [facility], [place] [address] [facility] [address] [place] [phone] 11/07/2016 10:33:20 11/07/2016 12:22:55 Screening mammography 26401874 Z12.31 Screening for malignant neoplastic disease 20766124 Z12.9 history of hysterecto my Depression screening 171 782885 Z13.89 neg screening Mixed anxi ety and depressive disorder 819261275 F41.8 zoloftlami ctalgeodon xanaxDr. Naiper Asthma 159397683 J45.90 9 Recent symptoms of shortness of breathatro vent 3x/weekfol lows an immunologi st Interstiti al lung disease 629905988 J84.[address] [place] [address] Gisele Sanchez ornc spirometry regularlyA dvair diskusBreo Atrovent Hypogammaglobulinemia 11 6523216 D80.1 Monthly infusion at [facility] Hyquviapre dnisone before and after infusions Benign hypertension 1072 5009 I10 Imdurstres s test completed by Dr. Watson 2017Cardia c cath Hypothyroidism 82375200 E03.9 levothyrox ine Hyperlipidemia 40504591 E78.5 atorvastat in Loss of hair 803498965 L 65.9 and thinning nails Fatigue 20595433 R53.83 Diarrhea 84071140 R19.7 DIarrhea x 1 month.Imod ium daily - which has been helping.Ga stroentero logist cancelatio n list at [facility] Active or passive immunization 547443276 Z23 Family his tory of diabetes mellitus 259709438 Z83.3 Candidiasis of vagina 72 342742 B37.3 Increased frequency of urination 225148516 R35.0 was treated with Bactrim from urgent care -- no reliefneed to obtain informatio n on UCrepeat UA with culture [id number] Naila Gudino MD [employer], [place] [address] [address] 03/21/2017 11:28:36 03/21/2017 13:17:23 Low back pain 052103197 M54.5 Menopause 442095905 Z78. 0 Benign hypertension 1072 5009 I10 Hyperlipidemia 79593228 E78.5 Screening mammography 24 086312 Z12.31 Screening for malignant neoplasm of cervix 659536412 Z12.4 Viral screening 12827697 4 Z11.59 [id number] Naila Gudino MD [employer] [facility] [address] [address] 07/05/2017 10:01:10 07/05/2017 11:25:01 Acute urinary tract infection 223737576 N39.0 Low back pain 781959415 M54.5 Garrett's esophagus 3029 00317 K22.70 F/U with GI , will try to get EGD and C scope from [email or web address] Hyperlipidemia 53907518 E78.5 Hypothyroidism 71428955 E03.9 Screening procedure 2012 5006 Z13.9 Screening mammography 24 129477 Z12.31 per pt had mammogram 01/2017 Screening for malignant neoplasm of cervix 876062470 Z12.4 per pt had CONFERENCE SERVICE COORDINATOR ex 01/2017 Obstructiv e sleep apnea syndrome 76527350 G47.33 [id number] Naila Gudnio MD [facility] [address] [place] [address] 11/09/2017 16:12:31 11/09/2017 17:20:20 Garrett's esophagus 352236570 K22.70 F/U with GI , seen GI , increased omeprazole to 40 BID , had EGD and C scope Dx autoimmune gastritis Chronic cough 11993975 R 05 seen allergy and pulm @ [facility] Chronic ob structive pulmonary disease 45158749 J44.9 Coronary arteriosclerosis in [place] artery 5639086680 107 I25.10 by history , per pt sees cardiology Dr Vinson @ [place] every year Benign hypertension 1072 5009 I10 good Hypothyroidism 54305248 E03.9 last TSH 07/14/17 Hyperlipidemia 89546907 E78.5 last LDL 07/14/17 Vitamin D deficiency 347 23625 E55.9 Vitamin B1 2 deficiency (non anemic) 27719279 E53.8 Screening mammography 24 621629 Z12.31 per pt had mammogram 07/2017 Screening for malignant neoplasm of cervix 050820854 Z12.4 per pt had CONFERENCE SERVICE COORDINATOR ex 01/2017 Screening for malignant neoplasm of colon 267113812 Z12.11 last C scope 05/23/17 [id number] Naila Gudino MD [facility] [address] [place] [address] 02/28/2018 10:12:49 02/28/2018 11:26:51 Benign hypertension 61888254 I10 now it is low , decrease isosorbide , BP 1 week Dizziness 210267215 R42 Bunion 933667750 M21.61 9 Sinusitis 93399412 J32.9 use nasonex Impacted c erumen in right ear 2966793635 802512 H61.21 Screening mammography 24 672424 Z12.31 per pt had mammogram 07/2017 Screening for malignant neoplasm of cervix 163848731 Z12.4 per pt had CONFERENCE SERVICE COORDINATOR ex 01/2017 Screening for malignant neoplasm of colon 158115783 Z12.11 last C scope 05/23/17 Active or passive immunization 478673507 Z23 flu shot after done with Abx Hypothyroidism 44099602 E03.9 last TSH 07/14/17 [id number] Naila Gudino MD [facility] [address] [place] [address] 04/09/2018 15:10:55 04/09/2018 16:54:43 Syncope 274643171 R55 work up inpt was -veresolve d seeing neurology @ [facility] U 05/2018 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 , seen GI @ [facility] U ,on high dose PPI and H2B Bipolar disorder 7245767 4 F31.9 Coronary arteriosclerosis in [place] artery 8701553523 107 I25.10 by history , per pt sees cardiology Dr Vinson @ [place] every year Garrett's esophagus 3029 45413 K22.70 F/U with GI , seen GI , increased omeprazole to 40 BID , had EGD and C scope Dx autoimmune gastritis Hypothyroidism 92611520 E03.9 last TSH 03/04/18 Benign hypertension 1072 5009 I10 now it is low , decrease isosorbide , BP 1 week Screening mammography 24 223489 Z12.31 per pt had mammogram 07/2017 Screening for malignant neoplasm of cervix 022902187 Z12.4 per pt had CONFERENCE SERVICE COORDINATOR ex 01/2017 Screening for malignant neoplasm of colon 906208383 Z12.11 last C scope 05/23/17 Active or passive immunization 405480819 Z23 per pt had flu shot @ [id number] Naila Gudino MD [employer] [facility] [address] [place] [address] 07/27/2018 11:13:45 07/27/2018 12:24:27 Adult health examination 504437721 Z00.01 Benign hypertension 1072 5009 I10 good control Hypogammaglobulinemia 11 7025165 D80.1 on IV every 30 days Asthma 033007143 J45.90 9 sees pulm every 6 months Vitamin B1 2 deficiency (non anemic) 96543452 E53.8 b12 shot today Atrophic gastritis 50715 007 K29.40 autoimmune , seen GI @ [facility] ,on high dose PPI and H2B Dyslipidemia 824828839 E 78.5 last LDL 03/2018 Vitamin D deficiency 347 58198 E55.9 Garrett's esophagus 3029 93030 K22.70 F/U with GI , seen GI , increased omeprazole to 40 BID , had EGD and C scope Dx autoimmune gastritis Coronary arteriosclerosis in [place] artery 9756569112 107 I25.10 by history , per pt sees cardiology Dr Vinson @ [place] every yearlast EKG 11/09/17 Tracheobronchomalacia 23 9412747 Q32.2 sees pulm every 6 months Bipolar disorder 5765331 4 F31.9 sees psych Nonspecifi c interstitial pneumonitis 056057195 J84.9 sees pulm every 6 months Screening mammography 24 854103 Z12.31 per pt had mammogram 07/2017 Screening for malignant neoplasm of cervix 345641750 Z12.4 per pt had CONFERENCE SERVICE COORDINATOR ex 01/2017 Sinusitis 29133897 J32.9 use nasonex Screening for malignant neoplasm of colon 675225411 Z12.11 last C scope 05/23/17 Active or passive immunization 012181200 Z23 per pt had flu shot @ [facility] Inflamed s eborrheic keratosis 644329620 L82.0 [id number] Naila Gudino MD [facility] [address] [facility] [place] ,[address] [address] 11/26/2018 11:20:50 11/26/2018 12:34:28 Lesion of skin of face 5476508303 06 L98.9 derm F/U , seeing one tomorrow Benign hypertension 1072 5009 I10 good control Hypogammaglobulinemia 11 0914166 D80.1 on IV every 30 days Asthma 920053168 J45.90 9 sees pulm every 6 months Hyperlipidemia 94278263 E78.5 last LDL 03/01/18 Screening mammography 24 589621 Z12.31 per pt had mammogram 07/2017 Screening for malignant neoplasm of cervix 389240883 Z12.4 per pt had CONFERENCE SERVICE COORDINATOR ex 01/2017 Screening for malignant neoplasm of colon 107254306 Z12.11 last C scope 05/23/17 Active or passive immunization 914942663 Z23 per pt had flu shot @ [facility] Right lowe r quadrant pain 524010298 R10.31 H/O appendecto my and cholecyste ctomy Hypothyroidism 64934374 E03.9 last TSH 05/16/18 [id number] Naila Gudino MD [employer] [facility]2 [facility] [address] [place] [address] 01/31/2019 12:01:04 01/31/2019 13:50:21 Neoplasm of pancreas 109493462 D49.[address] abd 01/21/19 , recheck 12/2019 Tracheobronchomalacia 23 9396567 Q32.2 sees pulm every 6 months Coronary arteriosclerosis in [place] artery 4130428297 107 I25.10 by history , per pt sees cardiology Dr Vinson @ [place] every yearlast EKG 11/09/17 Garrett's esophagus 3029 21361 K22.70 F/U with GI , seen GI , increased omeprazole to 40 BID , had EGD and C scope Dx autoimmune gastritis Hypogammaglobulinemia 11 3491626 D80.1 on IV every 30 days Hypothyroidism 91066907 E03.9 last TSH 12/21/18 [id number] ZHANNA SANDOVAL APN [employer], [place] [address] [facility] [address] ,[address] [place] [address] 04/03/2019 11:40:52 04/03/2019 12:17:42 Cough 08943652 R05 02 98%if symptoms do not improve or if they worsen call the office - Influenza- like symptoms 588505051 R68.89 Unintentio nal weight loss 078712703 R63.4 lost 8 pounds since 01/31/19no loss of appetite - [id number] Naila Gudino MD [employer] [facility] [address] ,[address] [place] [address] 05/22/2019 11:46:28 05/22/2019 12:53:46 Solitary nodule of lung 150794018 R91.[address] 04/10/20 Idiopathic pulmonary fibrosis 517089495 J84.112 sees pulm @ [facility] every 6 months Benign hypertension 1072 5009 I10 good control Garrett's esophagus 3029 75001 K22.70 F/U with GI , seen GI , increased omeprazole to 40 BID , had EGD and C scope Dx autoimmune gastritis Coronary arteriosclerosis in [place] artery 9791621399 107 I25.10 by history , per pt sees cardiology Dr Vinson @ [place] every yearlast EKG 11/09/17 Hyperlipidemia 16579486 E78.5 last LDL 12/21/18 Hypogammaglobulinemia 11 0323338 D80.1 on IV every 30 days Mixed anxi ety and depressive disorder 613710458 F41.8 No HI , no SI Neoplasm of pancreas [address] abd 01/21/19 , recheck 12/2019 Vocal cord dysfunction 636504302 R49.9 just seen ENT 04/18/19 Screening mammography 24 358573 Z12.31 per pt had mammogram 01/22/19 Screening for malignant neoplasm of colon 383600118 Z12.11 last C scope 05/23/17 Active or passive immunization 691110390 Z23 per pt had flu shot @ up to date Osteoarthritis 988978648 M19.90 Vitamin B1 2 deficiency (non anemic) 71433352 E53.8 b12 shot today [id number] Naila Gudino MD [facility] [employer] [employer] [address] [address] 08/21/2019 12:11:31 08/21/2019 12:42:12 Adult health examination 355661131 Z00.01 Benign hypertension 1072 5009 I10 good control Garrett's esophagus 3029 03441 K22.70 F/U with GI , seen GI , increased omeprazole to 40 BID , had EGD and C scope Dx autoimmune gastritis Atrophic gastritis 08724 007 K29.40 autoimmune , seen GI @ [facility] ,on high dose PPI and H2B Asthma 808230868 J45.90 9 sees pulm every 6 months Bipolar disorder 1252510 4 F31.9 sees psych Body mass index 20-24 - normal 016405789 Z68.23 education Coronary arteriosclerosis in [place] artery 2460339354 107 I25.10 by history , per pt sees cardiology Dr Vinson @ [place] every yearlast EKG 11/09/17 Fibrosis of lung 5390477 1 J84.10 sees pulm every 6 months Hyperlipidemia 58148624 E78.5 last LDL 12/21/18 Hypogammaglobulinemia 11 6919004 D80.1 on IV every 30 days Hypothyroidism 59985538 E03.9 last TSH 12/21/18 Mixed anxi ety and depressive disorder 148175389 F41.8 No HI , no SI Neuropathy 771412708 G62 .9 Nonspecifi c interstitial pneumonitis 160936724 J84.9 sees pulm every 6 months Obstructiv e sleep apnea syndrome 37151867 G47.33 good compliance Steatotic liver disease 822314083 K76.0 education Vitamin B1 2 deficiency (non anemic) 04101110 E53.8 b12 shot today Vitamin D deficiency 347 53479 E55.9 Vocal cord dysfunction 012159352 R49.9 just seen ENT 04/18/19 Solitary n odule of lung 319626701 R91.[address] 04/10/20 Idiopathic pulmonary fibrosis 424316668 J84.112 sees pulm @ [facility] every 6 months Neoplasm of pancreas [address] abd 01/21/19 , recheck 12/2019 Screening mammography 24 708349 Z12.31 per pt had mammogram 01/22/19 Screening for malignant neoplasm of colon 857518402 Z12.11 last C scope 05/23/17 Active or passive immunization 402071270 Z23 per pt had flu shot @ [facility] to date Osteoarthritis 438060717 M19.90 Paresthesi a of upper limb 80126650 R20.2 [id number] Naila Gudino MD [facility] [employer] [facility], [place] [address] [facility] [place] [address] [place] [address] 10/23/2019 15:28:29 10/23/2019 16:43:11 Rib pain 450803284 R07.81 X ray -ve Accidental fall 88015482 2 W19.XXXA [id number] Naila Gudino MD [facility] [facility], [place] [address] [facility] [address] [place] [address] 11/13/2019 11:21:10 11/13/2019 12:18:51 Preoperative cardiovascular examination 376343377 Z01.810 clear for surghad stress test 02/12/19 Benign hypertension 1072 5009 I10 good control Asthma 582354638 J45.90 9 sees pulm every 6 months Hypothyroidism 98856810 E03.9 last TSH 08/21/19 [id number] Naila Gudino MD [employer] [address] ,[address] [place] [address] 02/24/2020 15:40:50 02/24/2020 17:10:39 Benign hypertension 83253739 I10 good control Hyperlipidemia 47455891 E78.5 last LDL 12/21/18 Hypothyroidism 96396950 E03.9 last TSH 08/21/19 Vitamin B1 2 deficiency (non anemic) 68153252 E53.8 b12 shot today Vitamin D deficiency 347 10690 E55.9 Screening mammography 24 571371 Z12.31 per pt had mammogram 01/22/19 Screening for malignant neoplasm of cervix 184266987 Z12.4 per pt had CONFERENCE SERVICE COORDINATOR ex 01/2017 Rib pain 359697582 R07.8 1 X ray -ve Screening for malignant neoplasm of colon 649207653 Z12.11 last C scope 05/23/17 Active or passive immunization 211647682 Z23 per pt had flu shot @ [facility] to date [id number] Naila Gudino MD [employer] [address] [facility] [address] ,[address] [place] [address] 05/26/2020 15:05:45 05/26/2020 15:44:37 Benign hypertension 81703131 I10 good control Hyperlipidemia 42719307 E78.5 last LDL 05/25/20 @ Cardiology office was 75 Hypothyroidism 08848927 E03.9 last TSH 03/10/20 Mixed anxi ety and depressive disorder 804548695 F41.8 No HI , no SI Vitamin B1 2 deficiency (non anemic) 41989512 E53.8 last level 03/10/20 Vitamin D deficiency 347 51828 E55.9 last level 03/10/20 Bipolar disorder 7198793 4 F31.9 sees psych Asthma 524896406 J45.90 9 sees pulm every 6 months Screening for malignant neoplasm of colon 676311498 Z12.11 last C scope 05/23/17 Garrett's esophagus 3029 39252 K22.70 F/U with GI , Right uppe r quadrant pain 980604776 R10.11 toradol 1 ml now Obstructiv e sleep apnea syndrome 06111592 G47.33 good compliance Screening mammography 24 139185 Z12.31 per pt had mammogram 01/22/19 Screening for malignant neoplasm of cervix 861084139 Z12.4 per pt had CONFERENCE SERVICE COORDINATOR ex 01/2017 Immunization due 6848506 08 Z28.3 up to date Osteopenia 696294769 M85 .80 last DEXA 03/30/17 [id number] Naila Gudino MD [employer] [address] [place] [address] ,[address] [place] [address] 08/25/2020 14:54:18 08/25/2020 15:40:17 Adult health examination 808404770 Z00.01 Asthma 497459820 J45.90 9 sees pulm every 6 months Atrophic gastritis 18674 007 K29.40 autoimmune , seen GI @ [facility] ,on high dose PPI and H2B Garrett's esophagus 3029 48590 K22.70 F/U with GI , Benign hypertension 1072 5009 I10 good control Bipolar disorder 1426413 4 F31.9 sees psych Body mass index 20-24 - normal 214838353 Z68.23 education Fibrosis of lung 9376010 1 J84.10 sees pulm every 6 months Gastroesop hageal reflux disease 344209732 K21.9 Hernia of anterior abdominal wall 603019510 K43.9 Hyperlipidemia 99922352 E78.5 last LDL 05/25/20 @ Cardiology office was 75 Hypogammaglobulinemia 11 4047631 D80.1 on IV every 30 days Hypothyroidism 53714179 E03.9 last TSH 03/10/20 Low blood pressure 49809 003 I95.9 Mixed anxi ety and depressive disorder 363559908 F41.8 No HI , no SI Neoplasm of pancreas [address] abd 01/21/19 , recheck 12/2019 Neuropathy 461591522 G62 .9 Nonspecifi c interstitial pneumonitis 755431544 J84.9 sees pulm every 6 months Obstructiv e sleep apnea syndrome 50016696 G47.33 good compliance Osteoarthritis 604182642 M19.90 Osteopenia 609628639 M85 .80 last DEXA 03/30/17 Steatotic liver disease 174108132 K76.0 education Tracheobronchomalacia 23 0813202 Q32.2 sees pulm every 6 months Vitamin B1 2 deficiency (non anemic) 20340431 E53.8 last level 03/10/20 Vitamin D deficiency 347 33186 E55.9 last level 03/10/20 Vocal cord dysfunction 656716908 R49.9 just seen ENT 04/18/19 Pneumonia 149537377 J18. 9 on CXR 08/06/20 Screening mammography 24 166242 Z12.31 per pt had mammogram 01/22/19 Screening for malignant neoplasm of cervix 356274655 Z12.4 per pt had CONFERENCE SERVICE COORDINATOR ex 01/2017 Screening for malignant neoplasm of colon 295058292 Z12.11 last C scope 05/23/17 Active or passive immunization 630304406 Z23 per pt had flu shot @ up to date [id number] Naila Gudino MD [employer] [facility] [address] ,[address] [place] [address] 11/25/2020 11:52:04 11/25/2020 13:03:26 Syncope 288821500 R55 work up inpt was -veresolve d Acute urin matty tract infection 300549691 N39.0 Transient cerebral ischemia 985188469 G45.9 resloved , will get Carotid US and ECHO result from hosp Benign hypertension 1072 5009 I10 good controldec rease isosorbid to 30 qd Vitamin B1 2 deficiency (non anemic) 21930633 E53.8 last level 03/10/20 Candidiasis of mouth 797 94858 B37.0 [id number] Naila Gudino MD [employer] [facility] [address] ,[address] [place] [address] 12/29/2020 12:38:43 12/29/2020 13:44:54 Pain in right knee 2499033108 14534 M25.561 Garrett's esophagus 3029 13854 K22.70 F/U with GI , will try to get EGD report Benign hypertension 1072 5009 I10 good controlsto p isosorbide to 30 qdBP 2 weeks Bipolar disorder 8179979 4 F31.9 sees psych Vitamin B1 2 deficiency (non anemic) 77664192 E53.8 last level 03/10/20 Screening mammography 24 249069 Z12.31 per pt had mammogram 12/2019 Screening for malignant neoplasm of cervix 108698881 Z12.4 per pt had CONFERENCE SERVICE COORDINATOR ex 01/2017 Screening for malignant neoplasm of colon 568947124 Z12.11 last C scope 05/23/17 Active or passive immunization 729435740 Z23 per pt had flu shot @ up to date [id number] Naila Gudino MD [employer] [facility] [address] ,[address] [place] [address] 02/01/2021 11:47:13 02/01/2021 12:35:57 Rib pain 569301939 R07.81 X ray -ve Osteoarthr itis of right knee joint 9217583496 09778 M17.11 tylenol 500 TID [id number] Naila Gudnio MD [employer], [place] [address] [facility] [address] [place] [address] 03/31/2021 11:47:09 03/31/2021 12:57:42 Benign hypertension 62291731 I10 good controlBP 2 weeks Garrett's esophagus 3029 69752 K22.70 F/U with GI ,last EGD 01/2021 Asthma 381272246 J45.90 9 sees pulm every 6 months Body mass index 20-24 - normal 955035714 Z68.23 education Hyperlipidemia 74026243 E78.5 last LDL 09/24/20 Hypogammaglobulinemia 11 9769819 D80.1 on IV every 30 days Hypothyroidism 06598661 E03.9 last TSH 09/24/20 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 No HI , no SI Neuropathy 857708423 G62 .9 fair controllas t B12 12/30/20 Osteoarthritis 573198379 M19.90 Vitamin D deficiency 347 01399 E55.9 last level 03/10/20 Screening mammography 24 349163 Z12.31 per pt had mammogram 12/2019 Screening for malignant neoplasm of cervix 986861216 Z12.4 per pt had CONFERENCE SERVICE COORDINATOR ex 01/2017 Screening for malignant neoplasm of colon 587456511 Z12.11 last C scope 05/23/17 Active or passive immunization 333886432 Z23 per pt had flu shot up to date [id number] Naila Gudino MD [employer], [place] [address] [facility] [address] [place] [address] 07/21/2021 13:43:29 07/21/2021 14:59:18 Low back pain 767307888 M54.50 Accidental fall 60649959 2 W19.XXXA education Asthma 492101406 J45.90 9 sees pulm every 6 months Garrett's esophagus 3029 91102 K22.70 F/U with GI ,last EGD 01/2021 Body mass index 20-24 - normal 817367017 Z68.23 education Gastroesop hageal reflux disease 360848185 K21.9 Hyperlipidemia 72404768 E78.5 last LDL 04/06/21 Localized eruption of skin 074262671 R21 Screening mammography 24 083747 Z12.31 per pt had mammogram 12/2019 Menopause 494381908 Z78. 0 Screening for malignant neoplasm of cervix 032593387 Z12.4 per pt had CONFERENCE SERVICE COORDINATOR ex 06/2021 Congestion of nasal sinus 53648369 R09.81 616557 Naila Gudino MD 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 , seen GI @ [facility] ,on high dose PPI and H2B Garrett's esophagus 3029 70045 K22.70 F/U with GI ,last EGD 01/2021 Benign hypertension 1072 5009 I10 good controlBP 2 weekslast EKG 11/20/20 Bipolar disorder 6362612 4 F31.9 sees psych Body mass index 20-24 - normal 932625173 Z68.23 education Fibrosis of lung 2603716 1 J84.10 sees pulm every 6 months Gastroesop hageal reflux disease 964046574 K21.9 stable Hyperlipidemia 21914206 E78.5 last LDL 04/06/21 Hypothyroidism 27604742 E03.9 last TSH 04/06/21 Mixed anxi ety and depressive disorder 005665110 F41.8 No HI , no SI Neoplasm of pancreas [address] abd 01/21/19 , recheck 12/2019 Neuropathy 140304847 G62 .9 fair controllas t B12 12/30/20 Obstructiv e sleep apnea syndrome 37653271 G47.33 good compliance Osteoarthritis 803441929 M19.90 stable Osteopenia 561431862 M85 .80 order for DEXA 08/25/20 Vitamin B1 2 deficiency (non anemic) 31117081 E53.8 last level 12/30/20 Vitamin D deficiency 347 74646 E55.9 last level 04/06/21 Vocal cord dysfunction 785835988 R49.9 just seen ENT 04/18/19 Screening mammography 24 700732 Z12.31 per pt had mammogram 07/2021 Screening for malignant neoplasm of cervix 954118614 Z12.4 per pt had CONFERENCE SERVICE COORDINATOR ex 06/2021 Screening for malignant neoplasm of colon 029429375 Z12.11 last C scope 05/23/17 Active or passive immunization 387664392 Z23 per pt had flu shot up to date Advance di rective discussed with patient 974962774 Z71.89 education [id number] Naila Gudino MD [facility] [employer] [address] [facility] [place] ,[address] [address] 01/04/2022 10:46:51 01/04/2022 12:12:02 Accidental fall 723812509 W19.XXXA education Pain of left forearm 980 4787539 01492 M79.632 bruising and painrechec k 1-2 weeks Asthma 437868319 J45.90 9 sees pulm every 6 months Benign hypertension 1072 5009 I10 good controlBP 2 weekslast EKG 12/06/21 Garrett's esophagus 3029 13659 K22.70 F/U with GI ,last EGD 01/2021 Body mass index 20-24 - normal 598138144 Z68.23 educationl ost 5 LBsensure QD Coronary arteriosclerosis 46622892 I25.10 last stress test 11/2021 Hyperlipidemia 53038828 E78.5 last LDL 04/06/21 Hypogammaglobulinemia 11 4646503 D80.1 on IV every 30 days Screening mammography 24 717620 Z12.31 per pt had mammogram 09/03/2021 Screening for malignant neoplasm of cervix 599195239 Z12.4 per pt had CONFERENCE SERVICE COORDINATOR ex 06/2021 Screening for malignant neoplasm of colon 806314933 Z12.11 last C scope 05/23/17 Active or passive immunization 231900653 Z23 per pt had flu shot up to date [id number] Naila Gudino MD [facility] [employer] [facility], [place] [address] [facility] [address] ,[address] [place] [address] 04/06/2022 12:17:53 04/06/2022 13:13:27 Benign hypertension 59408646 I10 good controllas t ophth P 2 weekslast EKG 12/06/21 Gastroesop hageal reflux disease 183471450 K21.9 stable Hypothyroidism 46548621 E03.9 last TSH 03/16/22 was low , recheck 6 weeks Mixed anxi ety and depressive disorder 525354225 F41.8 No HI , no SI Mixed hyperlipidemia 267 952319 E78.2 last LDL 03/16/22 Vitamin B1 2 deficiency (non anemic) 73343113 E53.8 last level 12/30/20 Vitamin D deficiency 347 04386 E55.9 last level 04/06/21 Menopause 445630344 Z78. 0 Screening mammography 24 011073 Z12.31 per pt had mammogram 09/03/2021 Screening for malignant neoplasm of cervix 587124371 Z12.4 per pt had CONFERENCE SERVICE COORDINATOR ex 06/2021 Screening for malignant neoplasm of colon 469492568 Z12.11 last C scope 05/23/17 Active or passive immunization 704239233 Z23 per pt had flu shot up to date Acute sinusitis 31259677 J01.90 [id number] Naila Gudino MD [facility] [facility], [place] [address] [employer] [address] [place] [address] 10/10/2022 11:47:11 10/10/2022 13:28:48 Adult health examination 288164832 Z00.01 Benign hypertension 1072 5009 I10 good controllas t ophth P 2 weekslast EKG 12/06/21 Garrett's esophagus 3029 58324 K22.70 F/U with GI ,last EGD 01/2022 Asthma 400146314 J45.90 9 sees pulm every 6 months Bipolar disorder 0880774 4 F31.9 sees psych Body mass index 20-24 - normal 182656135 Z68.23 educatione nsure QD Coronary arteriosclerosis 97556466 I25.10 last stress test 11/2021 Fibrosis of lung 6983673 1 J84.10 sees pulm every 6 months Gastroesop hageal reflux disease 501227410 K21.9 stable Hernia of anterior abdominal wall 785034919 K43.9 education Hyperlipidemia 63672626 E78.5 last LDL 04/06/21 Hypogammaglobulinemia 11 7470032 D80.1 on IV every 30 days Hypothyroidism 31124722 E03.9 last TSH 03/16/22 was low , recheck 6 weeks Low blood pressure 16965 003 I95.9 education Menopause 312510561 Z78. 0 last DEXA 12/2021 Mixed anxi ety and depressive disorder 895344979 F41.8 No HI , no SI Mixed hyperlipidemia 267 331803 E78.2 last LDL 03/16/22 Neoplasm of pancreas [address] abd 01/21/19 , recheck Neuropathy 551671474 G62 .9 fair controllas t B12 12/30/20 Obstructiv e sleep apnea syndrome 82441652 G47.33 good compliance Osteoarthritis 600763708 M19.90 stable Osteoarthr itis of right knee joint 3125463334 32007 M17.11 tylenol 500 TID Osteopenia 690521011 M85 .80 order for DEXA 01/13/22 Steatotic liver disease 858112413 K76.0 education Vitamin B1 2 deficiency (non anemic) 76229707 E53.8 last level 05/31/22 Vitamin D deficiency 347 01621 E55.9 last level 04/06/21 Vocal cord dysfunction 921964938 R49.9 just seen ENT 04/18/19 Tracheobronchomalacia 23 6473360 Q32.2 sees pulm every 6 months Nonspecifi c interstitial pneumonitis 410505779 J84.9 sees pulm every 6 months Screening mammography 24 755464 Z12.31 per pt had mammogram 09/03/2021 Screening for malignant neoplasm of cervix 504216948 Z12.4 per pt had CONFERENCE SERVICE COORDINATOR ex 06/2021 Screening for malignant neoplasm of colon 009733188 Z12.11 last C scope 05/23/17 Active or passive immunization 171652239 Z23 per pt had flu shot up to date Advance di rective discussed with patient 533494523 Z71.89 education Low back pain 949654594 M54.50 X ray -ve 06/2021 [id number] Naila Gudino MD [employer] [address] [facility] [address] ,[address] [place] [address] 11/08/2022 13:49:33 11/08/2022 14:25:37 Bronchitis 81166964 J40 O2 is 95% Hypogammaglobulinemia 11 6926513 D80.1 on IV every 30 days [id number] Naila Gudino MD [employer], [facility] [address] [facility] [address] [place] [address] 01/09/2023 10:24:49 01/09/2023 11:41:07 Compression fracture of lumbar spine 214137662 M48.56XA L2 on CT abd 12/26/22 Compressio n fracture of thoracic vertebra 8070928930 [address] T spine 11/11/22 Osteopenia 296443236 M85 .80 order for DEXA 01/13/22 with compressio n fracture , will need prolia Benign hypertension 1072 5009 I10 good controllas t ophth P 2 weekslast EKG 12/06/21 Mixed hyperlipidemia 267 348094 E78.2 last LDL 03/16/22 Vitamin B1 2 deficiency (non anemic) 62597845 E53.8 last level 05/31/22 Vitamin D deficiency 347 48322 E55.9 last level 04/06/21 Neuropathy 962550954 G62 .9 fair controllas t B12 12/30/20 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 4413207818 [address] 12/26/22 , recheck 1 year Hypothyroidism 57423046 E03.9 last TSH 03/16/22 was low , recheck 6 weeks Coronary arteriosclerosis 14683868 I25.10 last stress test 11/2021 Screening mammography 24 175362 Z12.31 per pt had mammogram 09/03/2021 Screening for malignant neoplasm of cervix 288806539 Z12.4 per pt had CONFERENCE SERVICE COORDINATOR ex 06/2021 Screening for malignant neoplasm of colon 362607324 Z12.11 last C scope 05/23/17 Active or passive immunization 240028241 Z23 per pt had flu shot up to date Cyst of kidney 062899269 N28.1 on the Lt on CT abd 12/26/22 [id number] Naila Gudino MD [facility], [address] [place] [address] 02/09/2023 16:20:54 02/09/2023 17:25:04 Hospital inpatient stay within past 30 days 6795047884 106 Z76.89 went to ER 01/24/23 for encephalop athy , inpt till 01/27/23 Dx pneumonia , sepsis , better now , compliance with meds , F/U susy 04/10/23 Pneumonia 951748480 J18. 9 Chronic hypotension 7754 5000 I95.89 Sepsis 72517221 A41.9 resolved Interstiti al lung disease 654408697 J84.9 [id number] Naila Gudino MD [facility], [address] [place] [address] 05/10/2023 12:27:07 05/10/2023 14:12:04 Pneumonia 755591909 J18.9 History of SARS-CoV-2 29 90153369 15889782 Z86.16 05/07/23 Benign hypertension 1072 5009 I10 good controllas t ophth P 2 weekslast EKG 01/09/23 Asthma 158137640 J45.90 9 sees pulm every 6 months Hypothyroidism 13991368 E03.9 last TSH 03/06/23 was low , recheck 6 weeks Mixed hyperlipidemia 267 886219 E78.2 last LDL 03/06/23 Screening mammography 24 876437 Z12.31 per pt had mammogram 09/03/2021 Active or passive immunization 792744486 Z23 per pt had flu shot up to date [id number] Naila Gudino MD [facility], [facility] [place] [address] [address] [place] [address] 07/12/2023 14:25:05 07/12/2023 15:34:54 Benign hypertension 35365634 I10 good controllas t ophth P 2 weekslast EKG 01/09/23 Asthma 075763057 J45.90 9 sees pulm every 6 months Garrett's esophagus 3029 18846 K22.70 F/U with GI ,last EGD 01/2022 Body mass index 20-24 - normal 646528264 Z68.23 educatione nsure QD Compressio n fracture of thoracic vertebra 5355720016 [address] T spine 11/11/22 Coronary arteriosclerosis 78076496 I25.10 last stress test 11/2021 Hyperlipidemia 67053715 E78.5 last LDL 04/06/21 Hypogammaglobulinemia 11 3858290 D80.1 on IV every 30 days Hypothyroidism 57273208 E03.9 last TSH 05/10/23 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 2039179853 [address] 12/26/22 , recheck 1 year Mixed hyperlipidemia 267 422063 E78.2 last LDL 03/06/23 Osteoporosis 42263142 M8 1.0 last DEXA 01/13/22 osteopenia with compressio n Fx Vitamin B1 2 deficiency (non anemic) 99284711 E53.8 last level 05/31/22 Screening mammography 24 222894 Z12.31 per pt had mammogram 08/2023 Screening for malignant neoplasm of cervix 609881969 Z12.4 per pt had CONFERENCE SERVICE COORDINATOR ex 06/2021 Screening for malignant neoplasm of colon 919038080 Z12.11 last C scope 05/23/17 Active or passive immunization 728500001 Z23 per pt had flu shot up to date [id number] Naila Gudino MD [facility] [employer], [facility] [address] [facility] [address] ,[address] [address] 10/25/2023 11:14:44 10/25/2023 13:18:42 Adult health examination 381573020 Z00.01 Benign hypertension 1072 5009 I10 good controllas t ophth P 2 weekslast EKG 01/09/23 Pain in th oracic spine 263044180 M54.6 Asthma 661908485 J45.90 9 sees pulm every 6 months Garrett's esophagus 3029 98960 K22.70 F/U with GI ,last EGD 01/2022 Bipolar disorder 7056464 4 F31.9 sees psych Body mass index 20-24 - normal 641050863 Z68.23 educatione nsure QD Chronic hypotension 7754 5000 I95.89 Compressio n fracture of lumbar spine 232736321 M48.56XA L2 on CT abd 12/26/22 Coronary arteriosclerosis 67185130 I25.10 last stress test 11/2021 Fibrosis of lung 9695573 1 J84.10 sees pulm every 6 months Cyst of skin 374302073 L 72.9 face Cyst of kidney 760430172 N28.1 on the Lt on CT abd 12/26/22 Gastroesop hageal reflux disease 529912538 K21.9 stable Hernia of anterior abdominal wall 398892348 K43.9 education History of SARS-CoV-2 29 08762512 97894658 Z86.16 05/07/23 Hyperlipidemia 32105306 E78.5 last LDL 03/06/23 Hypogammaglobulinemia 11 0789022 D80.1 on IV every 30 days Hypothyroidism 78912451 E03.9 last TSH 05/10/23 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 0 last DEXA 12/2021 Mixed anxi ety and depressive disorder 756052637 F41.8 No HI , no SI Mixed hyperlipidemia 267 603372 E78.2 last LDL 03/06/23 Neoplasm of pancreas [address] abd 12/26/22 , recheck 1 year Neuropathy 535848943 G62 .9 fair controllas t B12 12/30/20 Nonspecifi c interstitial pneumonitis 641468752 J84.9 sees pulm every 6 months Obstructiv e sleep apnea syndrome 16883341 G47.33 good compliance Osteoarthritis 111082011 M19.90 stable Osteoporosis 81180426 M8 1.0 last DEXA 01/13/22 osteopenia with compressio n Fx Steatotic liver disease 781598451 K76.0 education Tracheobronchomalacia 23 0309539 Q32.2 sees pulm every 6 months Vitamin B1 2 deficiency (non anemic) 28698186 E53.8 last level 05/31/22 Vitamin D deficiency 347 17026 E55.9 last level 03/06/23 Vocal cord dysfunction 212883974 R49.9 just seen ENT 04/18/19 Screening mammography 24 872064 Z12.31 per pt had mammogram 08/2023 Screening for malignant neoplasm of cervix 828247898 Z12.4 per pt had CONFERENCE SERVICE COORDINATOR ex 06/2021 Screening for malignant neoplasm of colon 666582153 Z12.11 last C scope 05/23/17 Active or passive immunization 078299089 Z23 per pt had flu shot up to date Advance di rective discussed with patient 905387396 Z71.89 education [id number] Naila Gudino MD [facility] [address] [facility] [address] ,[address] [place] [address] 02/13/2024 11:39:21 02/13/2024 13:30:05 Asthma 379648738 J45.909 sees pulm every 6 months Gastroesop hageal reflux disease without esophagitis 870232830 K21.9 Vitamin B1 2 deficiency (non anemic) 89257193 E53.8 last level 05/31/22 Garrett's esophagus 3029 37110 K22.70 F/U with GI ,last EGD 01/2022 Bipolar disorder 9751557 4 F31.9 sees psych Body mass index 20-24 - normal 132383407 Z68.23 educatione nsure QD Fibrosis of lung 7738249 1 J84.10 sees pulm every 6 months Hyperlipidemia 33009666 E78.5 last LDL 03/06/23 Active or passive immunization 291337516 Z23 per pt had flu shot up to date Dry eyes 983358961 H04.1 23 Long-term drug therapy 975287392 Z79.891 statin 632994 Naila Gudino MD [facility] [address] [place] [address] 05/13/2024 11:16:34 05/13/2024 13:13:44 Interstitial lung disease 781987562 J84.9 per pulm Benign hypertension 1072 5009 I10 good controllas t ophth P 2 weekslast EKG 01/09/23 Bipolar disorder 6853559 4 F31.9 sees psych Body mass index 20-24 - normal 609346418 Z68.23 educatione nsure QD Coronary arteriosclerosis 98007775 I25.10 last stress test 11/2021 Gastroesop hageal reflux disease without esophagitis 836067826 K21.9 stable Hypothyroidism 46361228 E03.9 last TSH 02/13/24 Long-term drug therapy 642954256 Z79.891 statin Mixed hyperlipidemia 267 937386 E78.2 last LDL 03/06/23 Osteoporosis 70691728 M8 1.0 last DEXA 01/13/22 osteopenia with compressio n Fx Screening mammography 24 267907 Z12.31 per pt had mammogram 06/01/2023 Screening for malignant neoplasm of cervix 125185095 Z12.4 per pt had CONFERENCE SERVICE COORDINATOR ex 06/2021 Screening for malignant neoplasm of colon 765926505 Z12.11 last C scope 05/23/17 Chronic constipation 236 614661 K59.09 257646 Naila Gudino MD [facility], [place] [address] [place] [address] 06/04/2024 10:44:41 06/04/2024 11:16:14 Liver enzymes level above reference range 884896493 R74.8 Onychomyco sis of toenails 534510175 B35.1 Active or passive immunization 449888508 Z23 per pt had flu shot up to datedeclin e RSV [id number] Naila Gudino MD [facility], [address] [place] [address] 10/11/2024 10:38:03 10/11/2024 12:13:40 Osteoporosis 27999617 M81.0 last DEXA 01/13/22 osteopenia with compressio n Fx Mixed hyperlipidemia 267 627564 E78.2 last LDL 05/13/24 Benign hypertension 1072 5009 I10 good controllas t ophth P 2 weekslast EKG 05/13/24 Coronary arteriosclerosis 55953302 I25.10 last stress test 11/2021 Hypothyroidism 61784034 E03.9 last TSH 02/13/24 Body mass index 20-24 - normal 090833421 Z68.23 educatione nsure QD Vitamin D deficiency 347 52827 E55.9 last level 03/06/23 Vitamin B1 2 deficiency (non anemic) 87956893 E53.8 last level 05/31/22 Garrett's esophagus 3029 05188 K22.70 F/U with GI ,last EGD 01/2022 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 2861197884 [address] 12/26/22 , recheck 1 year Hypogammaglobulinemia 11 2596627 D80.1 on IV every 30 days Neuropathy 650085368 G62 .9 fair controllas t B12 12/30/20 Obstructiv e sleep apnea syndrome 71340202 G47.33 good compliance Screening mammography 24 777328 Z12.31 2188333560 per pt had mammogram 06/01/2023 Cancer cer vix screening status 281753088 Z12.4 186671 per pt had CONFERENCE SERVICE COORDINATOR ex 06/2021 Screening for malignant neoplasm of colon 292208542 Z12.11 320013 last C scope 05/23/17 Immunization due 1606083 08 Z23 9087578 per pt had flu shot up to datedeclin e RSV [id number] Naila Gudino MD [facility], [facility] [address] ,[address] [address] 01/09/2025 10:40:27 01/09/2025 12:16:02 Adult health examination 333759831 Z00.01 7161206 Benign hypertension 1072 5009 I10 good controllas t ophth P 2 weekslast EKG 05/13/24 Coronary arteriosclerosis 58839497 I25.10 last stress test 11/2021 Coronary arteriosclerosis in [place] artery 4617021638 107 I25.10 by history , per pt sees cardiology Dr Vinson @ [place] every yearlast EKG 05/13/24 Mixed hyperlipidemia 267 076503 E78.2 last LDL 10/11/24 Hypothyroidism 77279793 E03.9 last TSH 10/11/24 Long-term current use of drug therapy 990332435 Z79.427 3505056 statin Osteoporosis 33933912 M8 1.0 last DEXA 01/13/22 osteopenia with compressio n Fx Body mass index 20-24 - normal 720413577 Z68.23 educatione nsure QD Vitamin D deficiency 347 77684 E55.9 last level 10/11/24 Vitamin B1 2 deficiency (non anemic) 07651369 E53.8 last level 10/11/24 Vocal cord dysfunction 932181823 R49.9 just seen ENT 04/18/19 Gastroesop hageal reflux disease without esophagitis 575891592 K21.9 stable Garrett's esophagus 3029 72157 K22.70 F/U with GI ,last EGD 01/2022 Chronic constipation 236 180573 K59.09 seeing GI Menopause 318314970 Z78. 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 6626587570 [address] 12/26/22 , recheck 1 year History of SARS-CoV-2 29 24499006 55789846 Z86.16 05/07/23 Hypogammaglobulinemia 11 8341593 D80.1 on IV every 30 days Osteoarthritis 071939513 M19.90 stable Compressio n fracture of lumbar spine 646910196 M48.56XA L2 on CT abd 12/26/22 Compressio n fracture of thoracic vertebra 1892840285 [address] on [address] T spine 11/11/22 Tracheobronchomalacia 23 5764369 Q32.2 sees pulm every 6 months Asthma 834855728 J45.90 9 sees pulm every 6 months Interstiti al lung disease 535288316 J84.9 per pulm ,Last CT chest 08/06/24 Obstructiv e sleep apnea syndrome 64037310 G47.33 good compliance Steatotic liver disease 527433112 K76.0 education Colitis 67175027 K52.[address] @ [facility] 01/08/26,on Augmentin ,seeing GI Screening mammography 24 847441 Z12.31 7233413413 per pt had mammogram 06/01/2023 Cancer cer vix screening status 000606855 Z12.4 792162 per pt had CONFERENCE SERVICE COORDINATOR ex 06/2021 Screening for malignant neoplasm of colon 326531910 Z12.11 763565 last C scope 05/23/17 Immunization due 3329498 08 Z23 5259026 per pt had flu shot up to datedeclin e RSV Counseling 709848884 Z71 .89 114887 education Health Concerns Section Related Observation LastModified by Organization Detai ls LastModified Time None Recorded Concern Status LastModified by Organization Details LastModified Time None Recorded Advance Directives Directive None Recorded Payers Insurance Date Sequence Insurance Name Policy Number Policy Cruz Covered Member ID Cruz Member ID Guarantor Name 01/06/2025 1 [place] Angelia Malone [id number] Angelia Ca 01/29/2025 2 [employer] [place] [employer] [id number] Angelia Ca Notes Date Note Type Note Provider Name and Address Organization Details Recorded Time 02/13/2024 text/html Hypertension F/UReported by PatientHPIFor medications, patient reportstaking medications as directedandno side effects from medication. For lifestyle, patient reportsregular exercise,limiting/gordo iding salt, andcompliant with low salt diet. For associated symptoms, patient reportsno dizziness,no lightheadedness,no chest pain,no shortness of breath,no palpitations,no edema,no calf pain with exertion, andno headache. moving to [facility] , need paper work MD Linnea Jefferson2 [facility] [address], [place], [address], [facility] 02/13/2024 13:23:04 05/13/2024 text/html Hypertension F/UReported by PatientHPIFor medications, patient reportstaking medications as directedandno side effects from medication. For lifestyle, patient reportsregular exercise,limiting/gordo iding salt, andcompliant with low salt diet. For associated symptoms, patient reportsno dizziness,no lightheadedness,no chest pain,no shortness of breath,no palpitations,no edema,no calf pain with exertion, andno headache. MD Linnea Jefferson2 [facility] [address], [place], [address], [facility] 05/13/2024 13:06:26 06/04/2024 text/html Hypertension F/UReported by PatientHPIFor medications, patient reportstaking medications as directedandno side effects from medication. For lifestyle, patient reportsregular exercise,limiting/gordo iding salt, andcompliant with low salt diet. For associated symptoms, patient reportsno dizziness,no lightheadedness,no chest pain,no shortness of breath,no palpitations,no edema,no calf pain with exertion, andno headache. Naila Gudino MD [address] [facility] [address], [place], [address], [facility] 06/04/2024 11:14:42 10/11/2024 text/html Hypertension F/UReported by PatientHPIFor medications, patient reportstaking medications as directedandno side effects from medication. For lifestyle, patient reportsregular exercise,limiting/gordo iding salt, andcompliant with low salt diet. For associated symptoms, patient reportsno dizziness,no lightheadedness,no chest pain,no shortness of breath,no palpitations,no edema,no calf pain with exertion, andno headache. Naila Gudino MD [address] [facility] [address], [place], [address], [facility] 10/11/2024 12:09:30 01/09/2025 text/html Medicare Annual Wellness VisitReported by PatientSocial/Behavio ral HistoryFor diet and nutrition, patient reportshealthy diet. For fracture risk, patient reportsno history of fractures,no recent explained fracture,no sudden unexplained fractures, andno previous musculoskeletal injuries. For physical activity, patient reportsrecent increase in physical activity,good physical condition, anddiscussed exercise habits.Mental Status:For depression risk, patient reportsnever feels sad, empty, or tearful,no loss of interest in activities,no significant changes in weight,no sleep disturbances or insomnia,no agitation,no loss of energy,no feelings of worthlessness or guilt,no thoughts of suicide,no history of depression, andno history of mood disorders. For orientation, patient reportsno disorientation to time,no disorientation to date, andno disorientation to place. For concentration and memory, patient reportsno decreased concentrating ability,no memory lapses or loss, anddoes not forget words. For speech/motor difficulties, patient reportsno speech difficulties,no difficulty expressing formulated concepts,no difficulty with fine manipulative tasks,no difficulty writing/copying,no slowed reaction time, anddoes not knock things over when trying to pick them up.Functional AbilityFor hearing, patient reportsno loss of hearing. For vision, patient reportsno vision problems. For activities of daily living, patient reportsable to bathe with limited or no assistance,able to contol urination and bowels,able to dress with limited or no assistance,able to feed self with limited or no assistance,able to get out of chair or bed with limited or no assistance,able to groom with limited or no assistance, andable to toilet with limited or no assistance. For instrumental activities of daily living, patient reportsable to do house work with limited or no assistance,able to grocery shop with limited or no assistance,able to manage medications with limited or no assistance,able to manage money with limited or no assistance,able to prepare meals with limited or no assistance, andable to use the phone with limited or no assistance. For falls risk assessment, patient reportsno frequent falls while walking,no fall in the past year,no fall since last visit, andno dizziness/vertigo. For home safety, patient reportsuse of seatbelts. Hypertension F/UReported by PatientHPIFor medications, patient reportstaking medications as directedandno side effects from medication. For lifestyle, patient reportsregular exercise,limiting/gordo iding salt, andcompliant with low salt diet. For associated symptoms, patient reportsno dizziness,no lightheadedness,no chest pain,no shortness of breath,no palpitations,no edema,no calf pain with exertion, andno headache. Naila Gudino MD [address] [facility] [address], [place], [address], [facility] 01/09/2025 12:06:24 OBGyn Episode No OBEpisode recorded.
--- OUTSIDE RECORDS SUMMARY | 2025-02-24 12:19 | XMS_ITS | Clinical Summary ---
Author Organization [facility] Address [address] [place] [address] Care Team Providers Care Hotel Controller Name Role Phone Naila Marroquin MD Primary Care Provider [phone] Allergies Active Allergy Reactions Criticality Noted Date [...] 1:54 PM CDT Height 157.5 cm (5' 2) 08/07/2022 1:54 PM CDT Body Mass Index [...] series) 2022 COVID-19 Vaccine (2 - season) 2024 07/06/2020 Influenza Adult (#1) 2025 02/25/2020, 02/12/2020, 02/12/2016 Pneumococcal Vaccine: 50+ Years Completed 03/13/2018, 02/03/2017, 03/01/2016, Additional history exists Hepatitis A Vaccines Aged Out No long er eligible based on patient's age to complete this topic Meningococcal B Vaccine Aged Out No l onger eligible based on patient's age to complete this topic Meningococcal Vaccine Aged Out No leandra bartolome eligible based on patient's age to complete this topic RSV Immunizations Under 20 Months Aged Out No longer eligible based on patient's age to complete this topic Insurance [facility] MEDICARE Care Teams Hotel Controller Relationship Specialty Start Date End Date Naila Marroquin MD PCP - General 11/25/16
--- OUTSIDE RECORDS SUMMARY | 2025-02-24 12:19 | XMS_ITS | Encounter Summary ---
Author Organization [facility] Address [address] [place] [address] Care Team Providers Care Clamshell Operator Name Role Phone Naila Marroquin MD Primary Care Provider [phone] Encounter Details Date Type Department Care Team (Late st Contact Info) Description 01/11/2023 Therapy Plan [facility] Infusion Services [address] [address] Naila Marroquin MD [address] [place] [id number] Social History Tobacco Use Types Packs/Day Years [...] unspecified documented in this encounter Care Teams Clamshell Operator Relationship Specialty Start Date End Date Naila Marroquin MD PCP - General 11/25/16 documented as of this encounter
--- OUTSIDE RECORDS SUMMARY | 2025-02-24 12:20 | XMS_ITS | Encounter Summary ---
Author Organization [facility] Address [address] [address] Care Team Providers Care Real Estate Lawyer Name Role Phone Debora Fitch MD Primary Care Provider [phone] Miscellaneous, Not In File Primary Care Provider Unavailable Debora Fitch MD Primary Care Provider [phone] Naila Marroquin MD Primary Care Provider [phone] Debora Fitch MD Primary Care Provider Naila [...] Naila Marroquin MD Primary Care Provider [phone] Debora Fitch MD Primary Care Provider [phone] Naila Marroquin MD Primary Care Provider [phone] Janine Bañuelos RN Unavailable UnaJohn Paul Sawant MD Unavailable [phone] Sindy Armstrong RN Unavailable Darlene vailable Encounter Details Date Type Department Care Team (Late st Contact Info) Description 06/03/2016 Orders Only [facility] Provider, MD Sherif [address] [place] [address] Social History Tobacco Use Types Packs/Day Years Used Date Smoking Tobacco: Former Cigarettes Q uit: 05/01/1974 Alcohol Use Standard Drinks/Week Comments Yes 0 (1 standard drink = 0.6 oz pur e alcohol) Comments Unknown Sex and Gender Information Value Date Recorded Sex Assigned at Not on file Legal Sex Female 8:29 PM ENCODING CLERK Gender Identity Female 09/24/2021 1:08 PM [...] COVID: Suspected 05/28/2021 05/28/2021 05/28/2021 3:42 PM ENCODING CLERK COVID: Suspected 01/24/2023 01/24/2023 01/24/2023 1:28 AM CDT COVID: Suspected 01/24/2023 01/25/2023 01/25/2023 11:46 AM CDT COVID19 Comment:COVID + on home test. Symptoms started 3 days ago. 05/06/2023 05/06/2023 05/16/2023 3:05 AM ENCODING CLERK COVID: Recovered Comment:Added based on recent COVID infection. 05/16/2023 05/23/2023 08/14/2023 3:05 AM C DT documented as of this encounter Care Teams Real Estate Lawyer Relationship Specialty Start Date End Date Debora Fitch MD [address] [address] PCP - General 08/19/16 11/03/16 Miscellaneous, Not In File PCP - General 11/04/16 11/07/16 Debora Fitch MD [address] [address] PCP - General 11/08/16 11/17/16 Naila Marroquin MD [address] [place] [address] PCP - General 11/18/16 11/21/16 Debora Fitch MD [address] [address] PCP - General 11/22/16 11/22/16 Naila Marroquin MD [address] [place] [address] PCP - General 11/23/16 11/26/16 Debora Fitch MD [address] [address] PCP - General 11/27/16 01/03/17 Naila Marroquin MD [address] [place] [address] PCP - General 01/04/17 01/26/17 Debora Fitch MD [address] [facility] [place] [address] PCP - General 01/27/17 02/06/17 Naila Marroquin MD [address] [place] [address] PCP - General 02/07/17 02/13/17 Debora Fitch MD [address] [address] PCP - General 02/14/17 04/04/17 Naila Marroquin MD [address] [place] [address] PCP - General 04/05/17 04/05/17 Debora Fitch MD [address] [facility] [address] [address] PCP - General 04/06/17 05/18/17 Naila Marroquin MD [address] [place] [address] PCP - General 05/19/17 06/11/17 Debora Fitch MD [address] [address] PCP - General 06/12/17 06/14/17 Naila Marroquin MD [address] [place] [address] PCP - General 06/15/17 07/12/17 Debora Fitch MD [address] [facility] [address] [place] [address] PCP - General 07/13/17 07/20/17 Naila Marroquin MD [address] [place] [address] PCP - General 07/21/17 Janine Bañuelos, saddle cutter Nurse 08/02/18 John Paul Springer MD Consulting Physician Orthopedic Surgery 12/05/19 Sindy Armstrong, ALEXANDRA Registered Nurse Pulmonary Disease 03/23/22 documented as of this encounter
--- OUTSIDE RECORDS SUMMARY | 2025-02-24 12:20 | XMS_ITS | Clinical Summary ---
Author Organization [facility] al Address [address] [place] [address] Care Team Providers Care Inclusion Intern Name Role Phone Naila Marroquin MD Primary Care Provider [phone] Janine Bañuelos RN Unavailable Unajose martini John Paul David MD Unavailable [phone] Sindy Armstrong RN Unavailable Darlene vailable Allergies [...] (06/12/2020): Added automatically from request for surgery [id number] Hallux valgus of left foot 11/05/2019 Overview (11/05/2019): Added automatically from request for surgery [id number] Non-allergic rhinitis 01/02/2018 Seasonal allergic rhinitis due [...] artery disease of n 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 ([facility]) 04/06/2015 Overview (08/04/2016): 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 Irregular heart rhythm 04/06/2015 Overview (08/04/2016): Irregular heart beat Hypogammaglobulinemia 11/20/2014 Overview (10/25/2019): Hypogammaglobulinemia Depression 10/21/2014 Overview (08/04/2016): Depression ILD (interstitial lung disease) 06/26/2014 Resolved Problems Problem Noted Date Diagnosed Date Resolved Date CAP (community acquired pneumonia) 01/24/2023 07/19/2023 Cough 04/18/2019 11/21/2020 Assessment & Plan (04/18/2019 2:04 PM FILTERING MACHINE TENDER HELPER): The patient has chronic cough is likely [...] (07/04/2018): Added automatically from request for surgery [id number] Gastroesophageal reflux dise ase with esophagitis 04/02/2018 11/21/2020 Overview (04/02/2018): Added automatically from request for surgery [id number] 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 04/02/2018 11/21/2020 Overview (04/02/2018): Added automatically from request for surgery [id number] Pain of right lower extremity 10/02/2017 11/21/2020 [...] Encounters Date Type Department Care Team Description 02/04/2025 12:30 PM CDT Infusion [facility] [address] [place] [address] [address] [place] [address] Hypogammaglobulinemia (Primary Dx) 01/07/2025 4:09 PM CDT - 01/07/2025 11:59 PM CDT Hospital Encounter [facility] [address] [place] [address] Hypogammaglobulinemia Discharge Disposition: Discharge to home or self care 01/07/2025 12:30 PM CDT Infusion [facility] [address] [place] [address] [address] [place] [address] Hypogammaglobulinemia (Primary Dx) 12/10/2024 12:30 PM CDT Infusion [facility] [address] [place] [address] [address] [place] [address] Hypogammaglobulinemia (Primary Dx) from Last 3 Months [...] week 01/25/2023 How often do you attend [facility] or christian services? Never 01/25/2023 Do you belong to any clubs o r organizations such as pentecostalism groups, unions, fraternal or athletic groups, or [...] place to sleep or slept in a fpc (including now)? No 01/25/2023 Personal Safety Answer Date Recorded Have you ever been in or are you currently in a harmful physical or emotional relationship or is someone making you feel afraid or unsafe? Denies 05/06/2023 Comments No Sex and Gender Information Value Date Recorded Sex Assigned at Not on file Legal Sex Female 8:29 PM FILTERING MACHINE TENDER HELPER Gender Identity Female 09/24/2021 1:08 PM [...] Sign Reading Time Taken Comments Blood Pressure 113/60 02/04/2025 2:23 PM CDT Pulse 70 02/04/2025 2:23 PM CDT Temperature 36.5 C (97.7 F) 02/04/2025 2:23 PM CDT Respiratory Rate 20 10/31/2023 10:21 [...] B Screening 1963 Covid-19 Vaccine (2 - Jansse n risk series) 08/03/2020 07/06/2020, 07/06/2020 Well Visit 65+ 05/21/2022 05/21/2021 Fall Risk Assessment 01/28/2024 01/27/2023 Osteoporosis Screening-Bone Density Scan 04/06/2024 04/06/2022, 01/13/2022, 07/21/2021, Additional history exists Influenza Vaccine (#1) 2024 , 03/01/2022, 03/30/2021, Additional history exists DTaP/Tdap/Td Vaccine (4 - [...] history exists Medical Devices Implanted Type Area R D Intern Device Identifier Shelf Expiration Date Model / Serial / Lot Nerve Stimulator-Righ t Hip Description:Not active [employer] [id number] Bit 2.5mm Drill Cannulated Ao Quick Connect Color Coded - [id number] Implanted:Qty: 1 on 12/05/2019 at [facility] Left: Foot [employer] [id number] / / [employer] [id number] Screw Bone Medline Unite L18mm Od3.5mm Foot Ankle Nonlock - [id number] Implanted:Qty: 1 on 12/05/2019 by John Paul Springer MD at [facility] [employer] [id number] / / [employer] [id number] Screw Bone Medline Unite L38mm Od3.5mm Head Nonsterile - [id number] Implanted:Qty: 1 on 12/05/2019 by John Paul Springer MD at [facility] Left: Foot [employer] [id number] / / Explanted Type Area R D Intern Device Identifier Shelf Expiration Date Model / Serial / Lot [employer] [id number] Screw Bone Medline Unite L12mm Od2.7mm Foot Ankle Nonlock - [id number] Implanted:Qty: 1 Explanted:Qty: 1 on 12/05/2019 at [facility] Left: Foot [employer] [id number] / / [employer] [id number] Screw Bone Medline Unite L14mm Od2.7mm Foot Ankle Nonlock - [id number] Explanted:Qty: 1 on 12/05/2019 at [facility] Left: Foot [employer] [id number] / / [employer] [id number] Pin Fixation Medline Unite L10mm Od1.1mm - [id number] Implanted:Qty: 2 on 12/05/2019 at [facility] Explanted:Qty: 2 on 06/23/2020 at [facility] Left: Foot [employer] [id number] / / [employer] [id number] Plate Bone Medline Unite 5 D Medium Metatarsophalangeal Left Fusion Nonsterile - [id number] Implanted:Qty: 1 on 12/05/2019 by John Paul Springer MD at [facility] Explanted:Qty: 1 on 06/23/2020 at [facility] Left: Foot [employer] [id number] / / [employer] [id number] Screw 16mm 2.7mm Bone Medline Unite Foot Ankle Lock - [id number] Implanted:Qty: 1 on 12/05/2019 by John Paul Springer MD at [facility] Explanted:Qty: 1 on 06/23/2020 at [facility] Left: Foot [employer] [id number] / / [employer] [id number] Screw 12mm 3.5mm Bone Medline Unite Foot Ankle Lock - [id number] Implanted:Qty: 1 on 12/05/2019 by John Paul Springer MD at [facility] Explanted:Qty: 1 on 06/23/2020 at [facility] Left: Foot [employer] [id number] / / [employer] [id number] Screw 18mm 3.5mm Bone Medline Unite Foot Ankle Lock - [id number] Implanted:Qty: 3 on 12/05/2019 by John Paul Springer MD at [facility] Explanted:Qty: 3 on 06/23/2020 at [facility] Left: Foot [employer] [id number] / / Procedures Procedure Name Priority Date/Time Associated Diagnosis Comments IGG Routine 01/07/2025 12:17 PM CDT Hypogammaglobulin emia SCREENING MAMMOGRAM BILATERAL W DONY Schedule Routine, Read Routine (OP Routine) 06/01/2023 12:25 PM FILTERING MACHINE TENDER HELPER Screening mammogram, encounter for DEXA AXIAL SKELETON BONE DENSITY 1 OR MORE SITES Schedule Routine, Read Routine (OP Routine) 01/13/2022 1:17 PM CDT Asymptomatic menopausal state COLONOSCOPY REPORT 05/23/2017 from Last 3 Months or Most Recently Relevant to Health Maintenance Results * IgG (01/07/2025 12:17 PM CDT) Immunoglobulin G 944 700 - 1,600 mg/dL Comment:Testing performed by : [facility], [facility] [facility], [place]., [address] Blood 01/07/2025 12:1 7 PM CDT 01/07/2025 8:39 PM CDT [facility] Micheal Fitch MD LAB BLOOD ORDERABLES Final Res ult [facility] [address] [facility]. [place] [address] * Screening Mammogram Bilateral W Dony (06/01/2023 12:25 PM FILTERING MACHINE TENDER HELPER) Anatomical Region Laterality Modality Breast Bilateral Mammography Impressions 06/01/2023 1:40 PM FILTERING MACHINE TENDER HELPER BI-RADS ATLAS category (overall): 2 - Benign There is no mammographic evidence of malignancy. A 1 year screening mammogram is recommended. The patient has been or will be contacted. We recommend annual screening mammography for women at average risk of breast cancer beginning at age 40, based on guidelines of the [place] [employer] (ACR Practice Parameter for the Performance of Screening and Diagnostic Mammography) and [place] [employer]nec[employer]. For women with and elevated risk of breast cancer, please refer to the ACR Practice Parameter for specific screening recommendations. The patient will be entered into a reminder system with a target due date of 1 year for her next screening exam. Narrative 06/01/2023 1:40 PM FILTERING MACHINE TENDER HELPER Screening Mammogram Bilateral W Dony: 06/01/23 The [...] F with given history of screening. Postmenopausal R D Intern/Model: [employer] A ([id number]/N [id number]) CLINICAL INFORMATION: Current height: 61 inches Maximum [...] Sriram Casiano M.D. MF: VICTORINO Report ID: [id number] Reading Location: [place] [address] Procedure Note Sriram Casiano MD - 01/13/2022 EXAM DESCRIPTION: DEXA AXIAL SKELETON BONE DENSITY 1 OR MORE SITES REASON FOR STUDY: 77 y/o year old F with given history ofscreening. Postmenopausal R D Intern/Model: [employer] A ([id number]/N [id number]) CLINICAL INFORMATION: Current height: 61 inches Maximum [...] Sriram Casiano M.D. MF: VICTORINO Report ID: [id number] Reading Location: [place] [address] Naila Marroquin MD IMG DXA PROCEDURES Final R esult * COLONOSCOPY REPORT (05/23/2017) Anatomical Region Laterality Modality Other Provider Scanning GI PROCEDURE ORDERABLES Final Result from Last 3 Months or Most Recently Relevant to Health Maintenance Insurance [facility] MEDICARE MEDICARE [facility] MEDICARE [place] [place] MEDICARE [facility] MEDICARE [facility] Advance Directives For more information, please contact: [phone] * Full Code (Latest Code Status on File) Date Activated Date Inactivated Comments 01/24/2023 1:55 PM 01/27/2023 8:39 PM * Full Code Date Activated Date Inactivated Comments 11/21/2020 12:31 AM 11/23/2020 11:07 PM * Full Code Date Activated Date Inactivated Comments 07/06/2018 9:12 AM 07/06/2018 2:51 PM * Full Code Date Activated Date Inactivated Comments 06/05/2018 9:28 AM 06/05/2018 3:17 PM Care Teams Inclusion Intern Relationship Specialty Start Date End Date Naila Marroquin MD [address] [facility] [address] [place] [address] PCP - General 07/21/17 Janine Bañuelos, tool machinist Nurse 08/02/18 John Paul Springer MD Consulting Physician Orthopedic Surgery 12/05/19 Sindy Armstrong, ALEXANDRA Registered Nurse Pulmonary Disease 03/23/22
--- OUTSIDE RECORDS SUMMARY | 2025-02-24 12:20 | XMS_ITS | Encounter Summary ---
Author Organization [facility] Address [address] [place] [address] Phone Care Team Providers Care Mold Chipper Name Role Phone Naila Marroquin MD Primary Care Provider [phone] Janine Bañuelos RN Unavailable Unavai John Paul David MD Unavailable [phone] Sindy Armstrong RN Unavailable Darlene vailable Encounter [...] any clubs o r organizations such as jain groups, unions, fraternal or athletic groups, or [...] on file Legal Sex Female 8:29 PM DESK MAKER Gender Identity Female 09/24/2021 1:08 PM CDT [...] on filedocumented in this encounter Care Teams Mold Chipper Relationship Specialty Start Date End Date Naila Marroquin MD [address] [facility] [address] [place] [address] PCP - General 07/21/17 Janine Bañuelos, memory care program director Nurse 08/02/18 John Paul Springer MD Consulting Physician Orthopedic Surgery 12/05/19 Sindy Armstrong, RN Registered Nurse Pulmonary Disease 03/23/22 documented as of this encounter
--- OUTSIDE RECORDS SUMMARY | 2025-02-24 12:20 | XMS_ITS | Encounter Summary ---
Author Organization [facility] Address [address] [place] [address] Phone Care Team Providers Care Police Crime Scene Technician Name Role Phone Debora Fitch MD Primary Care Provider [phone] Naila Marroquin MD Primary Care Provider [phone] Debora Fitch MD Primary Care Provider [phone] Naila Marroquin MD Primary Care Provider [phone] Debora Fitch MD Primary Care Provider [phone] Naila Marroquin MD Primary Care Provider [phone] Debora Fitch MD Primary Care Provider [phone] Naila Marroquin MD Primary Care Provider [phone] Debora Fitch MD Primary Care Provider [phone] Naila Marroquin MD Primary Care Provider [phone] Janine Bañuelos RN Unavailable John Paul Lucas MD Unavailable Sindy Armstrong RN Unavailable Darlene vailable Encounter [...] on file Legal Sex Female 8:29 PM RUN LEAD Gender Identity Female 09/24/2021 1:08 PM CDT [...] COVID: Suspected 05/28/2021 05/28/2021 05/28/2021 3:42 PM RUN LEAD COVID: Suspected 01/24/2023 01/24/2023 01/24/2023 1:28 AM CDT COVID: Suspected 01/24/2023 01/25/2023 01/25/2023 11:46 AM CDT COVID19 Comment:COVID + on home test. Symptoms started 3 days ago. 05/06/2023 05/06/2023 05/16/2023 3:05 AM RUN LEAD COVID: Recovered Comment:Added based on recent COVID infection. 05/16/2023 05/23/2023 08/14/2023 3:05 AM C DT documented as of this encounter Care Teams Police Crime Scene Technician Relationship Specialty Start Date End Date Debora Fitch MD [address] [facility] [address] [place] [address] PCP - General 01/27/17 02/06/17 Naila Marroquin MD [address] [place] [address] PCP - General 02/07/17 02/13/17 Debora Fitch MD [address] [address] PCP - General 02/14/17 04/04/17 Naila Marroquin MD [address] [place] [address] PCP - General 04/05/17 04/05/17 Debora Fitch MD [address] [facility] [address] [address] PCP - General 04/06/17 05/18/17 Naila Marroquin MD [address] [place] [address] PCP - General 05/19/17 06/11/17 Debora Fitch MD [address] [facility] [address] [address] PCP - General 06/12/17 06/14/17 Naila Marroquin MD [address] [place] [address] PCP - General 06/15/17 07/12/17 Debora Fitch MD [address] [address] PCP - General 07/13/17 07/20/17 Naila [address] [facility] [address] [place] [address] PCP - General 07/21/17 Janine Bañuelos, robotype operator Nurse 08/02/18 John Paul Springer MD Consulting Physician Orthopedic Surgery 12/05/19 Sindy Armstrong, RN Registered Nurse Pulmonary Disease 03/23/22 documented as of this encounter
--- OUTSIDE RECORDS SUMMARY | 2025-02-24 12:20 | XMS_ITS | Encounter Summary ---
Author Organization [facility] Address [address] [address] Care Team Providers Care Castings Trimmer Name Role Phone Debora Fitch MD Primary Care Provider [phone] Miscellaneous, Not In File Primary Care Provider Unavailable Debora Fitch MD Primary Care Provider Naila Marroquin MD Primary Care Provider [phone] Debora Fitch MD Primary Care Provider Naila Marroquin MD Primary Care Provider Debora Fitch MD Primary Care Provider [phone] Naila Marroquin MD Primary Care Provider Debora Fitch MD Primary Care Provider Naila Marroquin MD Primary Care Provider Debora Fitch MD Primary Care Provider [phone] Naila Marroquin MD Primary Care Provider Debora Fitch MD Primary Care Provider Naila Marroquin MD Primary Care Provider Debora Fitch MD Primary Care Provider Naila Marroquin MD Primary Care Provider [phone] Debora Fitch MD Primary Care Provider [phone] Naila Marroquin MD Primary Care Provider [phone] Janine Bañuelos RN Unavailable UnaJohn Paul Sawant MD Unavailable [phone] Sindy Armstrong RN Unavailable Darlene vailable Encounter Details Date Type Department Care Team (Late st Contact Info) Description 05/19/2016 Orders Only [facility] Provider, MD Sherif [address] [place] [address] Social History Tobacco Use Types Packs/Day Years Used Date Smoking Tobacco: Former Cigarettes Q uit: 05/01/1974 Alcohol Use Standard Drinks/Week Comments Yes 0 (1 standard drink = 0.6 oz pur e alcohol) Comments Unknown Sex and Gender Information Value Date Recorded Sex Assigned at Not on file Legal Sex Female 8:29 PM TRANSCRIPT CLERK Gender Identity Female 09/24/2021 1:08 PM [...] COVID: Suspected 05/28/2021 05/28/2021 05/28/2021 3:42 PM TRANSCRIPT CLERK COVID: Suspected 01/24/2023 01/24/2023 01/24/2023 1:28 AM CDT COVID: Suspected 01/24/2023 01/25/2023 01/25/2023 11:46 AM CDT COVID19 Comment:COVID + on home test. Symptoms started 3 days ago. 05/06/2023 05/06/2023 05/16/2023 3:05 AM TRANSCRIPT CLERK COVID: Recovered Comment:Added based on recent COVID infection. 05/16/2023 05/23/2023 08/14/2023 3:05 AM C DT documented as of this encounter Care Teams Castings Trimmer Relationship Specialty Start Date End Date Debora Fitch MD [address] [address] PCP - General 08/19/16 11/03/16 Miscellaneous, Not In File PCP - General 11/04/16 11/07/16 Debora Fitch MD [address] [address] PCP - General 11/08/16 11/17/16 Naila Marroquin MD [address] [place] [address] PCP - General 11/18/16 11/21/16 Debora Fitch MD [address] [address] PCP - General 11/22/16 11/22/16 Naila Marroquin MD [address] [place] [address] PCP - General 11/23/16 11/26/16 Debora Fitch MD [address] [address] PCP - General 11/27/16 01/03/17 Naila Marroquin MD [address] [place] [address] PCP - General 01/04/17 01/26/17 Debora Fitch MD [address] [facility] [place] [address] PCP - General 01/27/17 02/06/17 Naila Marroquin MD [address] [place] [address] PCP - General 02/07/17 02/13/17 Debora Fitch MD [address] [facility] [address] [address] PCP - General 02/14/17 04/04/17 Naila Marroquin MD [address] [place] [address] PCP - General 04/05/17 04/05/17 Debora Fitch MD [address] [facility] [address] [address] PCP - General 04/06/17 05/18/17 Naila Marroquin MD [address] [place] [address] PCP - General 05/19/17 06/11/17 Debora Fitch MD [address] [address] PCP - General 06/12/17 06/14/17 Naila Marroquin MD [address] [place] [address] PCP - General 06/15/17 07/12/17 Debora Fitch MD [address] [facility] [address] [place] [address] PCP - General 07/13/17 07/20/17 Naila Marroquin MD [address] [place] [address] PCP - General 07/21/17 Janine Bañuelos, oven baker Nurse 08/02/18 John Paul Springer MD Consulting Physician Orthopedic Surgery 12/05/19 Sindy Armstrong, ALEXANDRA Registered Nurse Pulmonary Disease 03/23/22 documented as of this encounter
--- OUTSIDE RECORDS SUMMARY | 2025-02-24 12:20 | XMS_ITS | Encounter Summary ---
Author Organization [facility] Address [address] [place] [address] Phone Care Team Providers Care Sales Analytics Manager Name Role Phone Naila Marroquin MD Primary Care Provider [phone] Janine Bañuelos RN Unavailable Unavai John Paul David MD Unavailable [phone] Sindy Armstrong RN Unavailable Darlene vailable Encounter [...] on file Legal Sex Female 8:29 PM SUMMER SCHOOL COORDINATOR Gender Identity Female 09/24/2021 1:08 PM [...] COVID: Suspected 05/28/2021 05/28/2021 05/28/2021 3:42 PM SUMMER SCHOOL COORDINATOR COVID: Suspected 01/24/2023 01/24/2023 01/24/2023 1:28 AM CDT COVID: Suspected 01/24/2023 01/25/2023 01/25/2023 11:46 AM CDT COVID19 Comment:COVID + on home test. Symptoms started 3 days ago. 05/06/2023 05/06/2023 05/16/2023 3:05 AM SUMMER SCHOOL COORDINATOR COVID: Recovered Comment:Added based on recent COVID infection. 05/16/2023 05/23/2023 08/14/2023 3:05 AM C DT documented as of this encounter Care Teams Sales Analytics Manager Relationship Specialty Start Date End Date Naila Marroquin MD [address] [place] [address] PCP - General 07/21/17 Janine Bañuelos, rehabilitation worker Nurse 08/02/18 John Paul Springer MD Consulting Physician Orthopedic Surgery 12/05/19 Sindy Armstrong, RN Registered Nurse Pulmonary Disease 03/23/22 documented as of this encounter
--- OUTSIDE RECORDS SUMMARY | 2025-02-24 12:20 | XMS_ITS | Encounter Summary ---
Author Organization [facility] Address [address] [place] [address] Phone Care Team Providers Care Consumer Relations Specialist Name Role Phone Naila Marroquin MD Primary Care Provider [phone] Janine Bañuelos RN Unavailable Unavai John Paul David MD Unavailable [phone] Sindy Armstrong RN Unavailable Darlene vailable Encounter [...] on file Legal Sex Female 8:29 PM CHUCKER Gender Identity Female 09/24/2021 1:08 PM CDT [...] COVID: Suspected 05/28/2021 05/28/2021 05/28/2021 3:42 PM CHUCKER COVID: Suspected 01/24/2023 01/24/2023 01/24/2023 1:28 AM CDT COVID: Suspected 01/24/2023 01/25/2023 01/25/2023 11:46 AM CDT COVID19 Comment:COVID + on home test. Symptoms started 3 days ago. 05/06/2023 05/06/2023 05/16/2023 3:05 AM CHUCKER COVID: Recovered Comment:Added based on recent COVID infection. 05/16/2023 05/23/2023 08/14/2023 3:05 AM C DT documented as of this encounter Care Teams Consumer Relations Specialist Relationship Specialty Start Date End Date Naila Marroquin MD [address] [facility] [address] [place] [address] PCP - General 07/21/17 Janine Bañuelos, applied psychology teacher Nurse 08/02/18 John Paul Springer MD Consulting Physician Orthopedic Surgery 12/05/19 Sindy Armsrtong, RN Registered Nurse Pulmonary Disease 03/23/22 documented as of this encounter
--- OUTSIDE RECORDS SUMMARY | 2025-02-24 12:20 | XMS_ITS | Patient Health Record ---
Author Organization [facility] Address [address] [facility] [address] [place] [address] Care Team Providers Care Coater Carbon Paper Name Role Phone Cara ERAZO, Khalifmarielle Primary Care Provider Toy Cordon Unavailable [phone] Allergies Allergen (clinical drug ingredient) Drug/Non Drug Allergy documented on EMR Reaction Allergy Type Onset Date Status nitrofurantoin Macrodantin Unknown Drug Allergy Active codeine Codeine Unknown Drug Allergy Active Results Component Value Reference Range Notes UDT Reviewed date:04/10/2024 02:37:43 PM Interpretation: Performing Lab: Notes/Report: Amphetamine (AMP) N 0 - 1000 ng/ml Buprenorphine (BUP) N 0 - 10 ng/ml Oxazepam (BZO) POS 0 - 300 ng/ml Cocaine (MIKEY) N 0 - 300 ng/ml Methamphetamine (mAMP) N 0 - 300 ng/ml Methylenedioxymethamphetamine (MDMA) N 0 - 500 ng/ml Morphine (MOP) N 0 - 25 ng/ml Methadone (MTD) N 0 - 300 ng/ml Oxycodone (OXY) N 0 - 300 ng/ml THC N 0 - 50 ng/ml x N 0 - 1000 ng/ml x N 0 - 1000 ng/ml x N 0 - 300 ng/ml x N 0 - 300 ng/ml x N 0 - 300 ng/ml EXTRA SPECIMEN ([id number]) Reviewed date:04/30/2024 09:36:35 AM Interpretation: Performing Lab:MARIA LUISA, [id number] J Carlos Perez, [id number] Noni Madden MD Notes/Report: FASTING: UNKNOWN EXTRA TUBE RECEIVED An extra specimen was received with no test requested. The specimen will be maintained in storage in case additional testing is needed. Please call the client service department for further assistance. SPECIMEN TYPE RECEIVED Clinical Drug Test Your request to have a duplicate copy faxed has been acknowledged. Queued to: [id number] Reason For Referral No Information Medications Medication SIG (Take, Route, Frequency, Duration) Notes Start Date End Date Status Cetirizine HCl 10 MG Tablet Oral; Duration: 30 Days Active ALPRAZolam 1 MG Tablet 1 tablet Oral 4 times a day; Duration: 30 days direction change 02/11/2025 Active Montelukast Sodium 10 MG Tablet TAKE 1 TABLET BY MOUTH EVERY DAY Oral; Duration: 90 Days Active Famotidine 40 MG Tablet TAKE 1 TABLET BY MOUTH EVERY DAY AT BEDTIME Oral; Duration: 90 Days Active Zolpidem Tartrate 10 MG Tablet 1 tablet at bedtime as needed Orally Once a day; Duration: 30 days As needed 12/20/2024 03/15/2025 Active Ondansetron HCl 4 MG Tablet 1 tablet Orally twice a day; Duration: 30 days As needed 02/11/2025 Active Pregabalin 75 MG Capsule Oral; Duration: 30 Days Active Rosuvastatin Calcium 40 MG Tablet Oral; Duration: 30 Days Active Isosorbide Mononitrate ER 60 MG Tablet Extended Release 24 Hour Oral; Duration: 30 Days Active Pantoprazole Sodium 40 MG Tablet Delayed Release TAKE 1 TABLET BY MOUTH EVERY DAY IN THE MORNING Oral; Duration: 90 Days Active Levothyroxine Sodium 88 MCG Tablet Oral; Duration: 20 Days Active Ezetimibe 10 MG Tablet Oral; Duration: 30 Days Active Pregabalin 50 MG Capsule Oral; Duration: 30 Days Not-Taking Ziprasidone HCl 20 MG Capsule 1 capsule with food Orally daily; Duration: 30 days 02/11/2025 Active Social History Tobacco Use: Social History Observation Description Date Details (start date - stop date) Never Smoker NA - NA Sex Assigned At : Social History Observation Description Sex Assigned At Female Social History Miscellaneous: Social Info Question Answer Notes Advance Care Planning Are you your own decision-maker Yes Do you have Power of Tableau Report Developer for Health or [facility]? No Advance Directive Living Will,FULL CODE [...] Insomnia disorder related to another mental disorder (84133189) Insomnia due to other mental disorder (F51.05) Active confirmed Problem Mental disorder (80176710) Mental disorder, not otherwise specified (F99) Active confirmed Problem Moderate recurrent major depression (90283910) Depression, major, recurrent, moderate (F33.1) Active confirmed Problem Generalized anxiety disorder (46548952) ENRICO (generalized anxiety disorder) (F41.1) Active confirmed Vital Signs Heart Rate 93 /min 02/11/2025 Height-cm 157.48 cm 02/11/2025 Blood pressure diastolic 68 mm Hg 02/11/2025 Weight-kg 53.98 kg 02/11/2025 Height 62 in 02/11/2025 Blood pressure systolic 111 mm Hg 02/11/2025 Weight 119 lbs 02/11/2025 BMI 21.76 kg/m2 02/11/2025 Encounters Encounter Location Date Provider Diagnosis [facility] [address] [place] [address] 02/11/2025 Toy Knight Insomnia due to othe r mental disorder F51.05 ; ENRICO (generalized anxiety disorder) F41.1 ; Depression, major, recurrent, moderate F33.1 ; High risk medication use Z79.899 and Nausea R11.0 [facility] [address] [place] [address] 04/09/2024 Toy Knight ENRICO (generalized anxiety disorder) F41.1 ; Depression, major, recurrent, moderate F33.1 ; Insomnia due to other mental disorder F51.05 and High risk medication use Z79.899 [facility] [place] [address] [facility] [address] [address] 05/16/2024 Toy Knight ENRICO (generalized anxiety disorder) F41.1 ; Depression, major, recurrent, moderate F33.1 ; Insomnia due to other mental disorder F51.05 and High risk medication use Z79.899 [facility] [address] [address] 07/10/2024 Toy Knight Encounter for screen ing for depression Z13.31 ; Encounter for screening for cardiovascular disorders Z13.6 ; ENRICO (generalized anxiety disorder) F41.1 ; Depression, major, recurrent, moderate F33.1 ; Insomnia due to other mental disorder F51.05 and High risk medication use Z79.899 [facility] [address] [address] 08/13/2024 Toy Knight Encounter for screen ing for cardiovascular disorders Z13.6 ; Encounter for screening for depression Z13.31 ; ENRICO (generalized anxiety disorder) F41.1 ; Depression, major, recurrent, moderate F33.1 ; Insomnia due to other mental disorder F51.05 and High risk medication use Z79.899 [facility] [address] [address] 09/05/2024 Toy Knight Encounter for screen ing for cardiovascular disorders Z13.6 ; Encounter for screening for depression Z13.31 ; ENRICO (generalized anxiety disorder) F41.1 ; Depression, major, recurrent, moderate F33.1 ; Insomnia due to other mental disorder F51.05 and High risk medication use Z79.899 [facility] [place] [address] [facility] [address] [address] 10/08/2024 Toy Knight Encounter for screen ing for cardiovascular disorders Z13.6 ; Encounter for screening for depression Z13.31 ; ENRICO (generalized anxiety disorder) F41.1 ; Depression, major, recurrent, moderate F33.1 ; Insomnia due to other mental disorder F51.05 ; High risk medication use Z79.899 and Nausea R11.0 [facility], [facility] [address] [place] [address] 11/07/2024 Toy Knight ENRICO (generalized anxiety disorder) F41.1 ; Depression, major, recurrent, moderate F33.1 ; Insomnia due to other mental disorder F51.05 ; High risk medication use Z79.899 and Nausea R11.0 [facility], [facility] [address] [place] [address] 12/11/2024 Toy Knight ENRICO (generalized anxiety disorder) F41.1 ; Insomnia due to other mental disorder F51.05 ; Depression, major, recurrent, moderate F33.1 ; High risk medication use Z79.899 and Nausea R11.0 [facility], [facility] [address] [place] [address] 01/14/2025 Toy Knight Insomnia due to othe r mental disorder F51.05 ; ENRICO (generalized anxiety disorder) F41.1 ; Depression, major, recurrent, moderate F33.1 ; High risk medication use Z79.899 and Nausea R11.0 [facility], [facility] [address] [place] [address] 04/09/2024 [facility] [address] [place] [address] 04/10/2024 Toy Knight [facility], [facility] [address] [place] [address] 07/11/2024 Toy Nielsena [facility], [facility] [address] [place] [address] 10/04/2024 Toy Knight ENRICO (generalized anxiety disorder) F41.1 [facility], [facility] [address] [place] [address] 10/09/2024 Toy Knight [facility], [facility] [address] [place] [address] 11/12/2024 Toy Gabrieloza [facility], [facility] [address] [place] [address] 12/19/2024 Toy Knight ENRICO (generalized anxiety disorder) F41.1 and Insomnia due to other mental disorder F51.05 [facility] [address] [place] [address] 12/24/2024 Toylucinda Knight ENRICO (generalized anxiety disorder) F41.1 [facility] [address] [place] [address] 01/30/2025 Toy Knight [facility] [address] [facility] [address] [place] [address] 08/27/2024 Toylucinda Gabrieloza [facility] [address] [facility] [address] [place] [address] 08/27/2024 Toylucinda Gabrieloza [facility] [address] [facility] [address] [place] [address] 08/27/2024 Toylucinda Gabrieloza [facility] [address] [facility] [address] [place] [address] 10/16/2024 Toylucinda Gabrieloza [facility] [address] [facility] [address] [place] [address] 10/17/2024 Toy Knight Insomnia due to othe r mental disorder F51.05 [facility] [address] [facility] [address] [place] [address] 01/26/2025 Toylucinda Gabrieloza Assessments Encounter Date Diagnosis (ICD Code) Assessment [...] use is recommended short term therapy not mcfp. High risk for abuse, tolerance and addiction. [...] use is recommended short term therapy not mcfp. High risk for abuse, tolerance and addiction. [...] adjustment progress at the next follow-up appointment. 10/08/2024 Encounter for screening for cardiovascular disorders (ICD-10 - Z13.6) on alprazolam 1mg QID- high risk medication 10/17/2024 Insomnia due to other mental disorder (ICD-10 - F51.05) 12/11/2024 Insomnia due to other mental disorder [...] ENRICO (generalized anxiety disorder) (ICD-10 - F41.1) 01/14/2025 Insomnia due to other mental disorder (ICD-10 - F51.05) on zolpidem 5mg by pcp. on alprazolam 1mg QID- high risk medication 02/11/2025 Insomnia due to other mental disorder (ICD-10 - F51.05) will try to add alprazolam at bedtime on alprazolam 1mg QID- high risk medication 11/07/2024 ENRICO (generalized anxiety disorder) (ICD-10 - F41.1) on alprazolam 1mg qid - she has been on it for years on alprazolam 1mg QID- high risk medication 08/13/2024 Encounter for screening for cardiovascular disorders (ICD-10 - Z13.6) on alprazolam 1mg QID- high risk medication 07/10/2024 Encounter for screening for depression (ICD-10 - Z13.31) on alprazolam 1mg QID- high risk medication 10/04/2024 ENRICO (generalized anxiety disorder) (ICD-10 - F41.1) 09/05/2024 Encounter for screening for cardiovascular disorders (ICD-10 - Z13.6) on alprazolam 1mg QID- high risk medication 09/05/2024 Encounter for screening for depression (ICD-10 - Z13.31) on alprazolam 1mg QID- high risk medication 07/10/2024 Encounter for screening for cardiovascular disorders (ICD-10 - Z13.6) on alprazolam 1mg QID- high risk medication 11/07/2024 Depression, major, recurrent, moderate (ICD-10 - F33.1) on alprazolam 1mg QID- high risk medication 08/13/2024 Encounter for screening for depression (ICD-10 - Z13.31) on alprazolam 1mg QID- high risk medication 01/14/2025 ENRICO (generalized anxiety disorder) (ICD-10 - F41.1) on alprazolam 1mg qid - she has been on it for years on alprazolam 1mg QID- high risk medication 02/11/2025 ENRICO (generalized anxiety disorder) (ICD-10 - F41.1) on alprazolam 1mg qid - she has been on it for years on alprazolam 1mg QID- high risk medication 12/11/2024 Depression, major, recurrent, moderate (ICD-10 - F33.1) on alprazolam 1mg QID- high risk medication 12/19/2024 Insomnia due to other mental disorder (ICD-10 - F51.05) 10/08/2024 ENRICO (generalized anxiety disorder) (ICD-10 - [...] use is recommended short term therapy not terminal block assembler. High risk for abuse, tolerance and addiction. [...] adjustment progress at the next follow-up appointment. 10/08/2024 Depression, major, recurrent, moderate (ICD-10 - F33.1) on alprazolam 1mg QID- high risk medication 04/09/2024 High risk medication use (ICD-10 - Z79.899) terminal block assembler use benzodiazepine is not recommended, greater risk [...] use is recommended short term therapy not terminal block assembler. High risk for abuse, tolerance and addiction. [...] adjustment progress at the next follow-up appointment. 12/11/2024 High risk medication use (ICD-10 - Z79.899) mcfp use benzodiazepine is not recommended, greater risk of use in elderly population. Plan to taper off of benzodiazepine in the future. on alprazolam 1mg QID- high risk medication 01/14/2025 Depression, major, recurrent, moderate (ICD-10 - F33.1) [...] alprazolam 1mg QID- high risk medication 07/10/2024 ENRICO (generalized anxiety disorder) (ICD-10 - [...] High risk medication use (ICD-10 - Z79.899) mcfp use benzodiazepine is not recommended, greater risk of use in elderly population. Plan to taper off of benzodiazepine in the future. on alprazolam 1mg QID- high risk medication 08/13/2024 Depression, major, recurrent, moderate (ICD-10 - F33.1) on alprazolam 1mg QID- high risk medication 02/11/2025 High risk medication use (ICD-10 - Z79.899) mcfp use benzodiazepine is not recommended, greater risk of use in elderly population. She has failed GDR . Have discussed risks of using benzodiazepine terminal block assembler including cognitive impairment, falls, dependency on medication on alprazolam 1mg QID- high risk medication 01/14/2025 High risk medication use (ICD-10 - Z79.899) terminal block assembler use benzodiazepine is not recommended, greater risk of use in elderly population. Plan to taper off of benzodiazepine in the future. on alprazolam 1mg QID- high risk medication 05/16/2024 High risk medication use (ICD-10 - Z79.899) terminal block assembler use benzodiazepine is not recommended, greater risk [...] adjustment progress at the next follow-up appointment. 10/08/2024 Insomnia due to other mental disorder (ICD-10 - F51.05) on zolpidem 5mg by pcp. on alprazolam 1mg QID- high risk medication 12/11/2024 Nausea (ICD-10 - R11.0) on alprazolam 1mg QID- high risk medication 10/08/2024 High risk medication use (ICD-10 - Z79.899) mcfp use benzodiazepine is not recommended, greater risk of use in elderly population. Plan to taper off of benzodiazepine in the future. on alprazolam 1mg QID- high risk medication 02/11/2025 Nausea (ICD-10 - R11.0) on alprazolam 1mg QID- high risk medication 01/14/2025 Nausea (ICD-10 - R11.0) on alprazolam 1mg QID- high risk medication 08/13/2024 Insomnia due to other mental disorder (ICD-10 - F51.05) on zolpidem 5mg by pcp. on alprazolam 1mg QID- high risk medication 11/07/2024 Nausea (ICD-10 - R11.0) on alprazolam 1mg QID- high risk medication 07/10/2024 Insomnia due to other mental disorder (ICD-10 - F51.05) on zolpidem 5mg by pcp. on alprazolam 1mg QID- high risk medication 09/05/2024 Insomnia due to other mental disorder (ICD-10 - F51.05) on zolpidem 5mg by pcp. on alprazolam 1mg QID- high risk medication 07/10/2024 High risk medication use (ICD-10 - Z79.899) mcfp use benzodiazepine is not recommended, greater risk of use in elderly population. Plan to taper off of benzodiazepine in the future. on alprazolam 1mg QID- high risk medication 08/13/2024 High risk medication use (ICD-10 - Z79.899) mcfp use benzodiazepine is not recommended, greater risk of use in elderly population. Plan to taper off of benzodiazepine in the future. on alprazolam 1mg QID- high risk medication 09/05/2024 High risk medication use (ICD-10 - Z79.899) terminal block assembler use benzodiazepine is not recommended, greater risk [...] use is recommended short term therapy not mcfp. High risk for abuse, tolerance and addiction. [...] falls asleep around 10 PM but experiences interceptor operator awakenings. The sleep disturbances are contributing to [...] on alprazolam 1mg QID- high risk medication 01/14/2025 Reba Ca, a 80-year-old female, presents with insomnia, medication side effects. Insomnia Assessment: Patient reports significant difficulty with sleep initiation and maintenance. She gets approximately 2 hours of sleep per night, with occasional nights of no sleep at all. Previous trials of temazepam and zolpidem have been ineffective. Patient currently takes zolpidem but reports breakthrough insomnia after a few hours. She occasionally naps for 30-45 minutes during the day or dozes off for about an hour in the evening while watching TV. Plan: - Discontinue zolpidem - Start eszopiclone - Educate patient on sleep hygiene techniques - Follow up to assess efficacy of eszopiclone and need for further interventions Medication Side Effects Assessment: Patient recently discontinued sertraline due to severe constipation, which led to an emergency room visit for colonic infection and fluid accumulation. A trial of linaclotide was ineffective. Patient also reports experiencing sweating with zolpidem use. These side effects have significantly impacted her medication regimen and quality of life. Plan: - Discontinue zolpidem - Continue (docusate) as recommended by primary care physician - Consider adding polyethylene glycol 3350 (MiraLAX) as needed for constipation - Monitor for side effects with new medication regimen Anxiety with Benzodiazepine Dependence Assessment: Patient is currently taking alprazolam four times daily and reports experiencing inter-dose withdrawal symptoms (shaky between doses). Given her age (80) and long-term use, there are concerns about physical dependence and potential adverse effects of continued benzodiazepine use. Plan: - Continue alprazolam - Discuss splitting midday dose to extend coverage and potentially reduce inter-dose withdrawal symptoms - Educate patient on risks of long-term benzodiazepine use and physical dependence - Consider gradual dose reduction in future visits if appropriate Mood Disorder Assessment: Patient has a history of mood disorder, previously treated with sertraline and ziprasidone. Sertraline was recently discontinued due to side effects. Patient inquires about restarting ziprasidone. Plan: - Restart ziprasidone 20 mg PO daily with food in the morning - Educate patient on potential side effects and importance of taking with food - Follow up to assess efficacy and tolerability of ziprasidone the note is transcribed using speech recognition [...] Next Appt Details Provider Name:Toy Ailyn tony, 03/11/2025 09:45:00 AM, [address], [facility] [address], [place], [address], Insurance Providers Payer Name Payer Address Payer Phone Subscriber Number Group Number Insured Name Patient Relationship to Insured Coverage Start Date Coverage End Date Medicare-I l Medicare [address] [place] [address] [id number] Angelia Ca Self - patient is the insured [facility] [address] [place] [address] [id number] Angelia Ca Self - patient is the [...]
--- OUTSIDE RECORDS SUMMARY | 2025-02-24 12:20 | XMS_ITS | Clinical Summary ---
Author Organization [facility] Address [address] [facility] [place] [address] Care Team Providers Care Technology Coach Name Role Phone Noel Gomez DO Primary Care Provider [phone] Source Comments [facility],non-owned Affiliates and Associated Physician Practices is amultiple site organization consisting of ambulatory clinics and hospital sitesin [place], [place], [place] and [place]. This disclosure is being madepursuant to the Care Everywhere program and may not contain all information available regarding this patient. Last updated 18.[facility] Allergies Active Allergy Reactions Criticality Noted Date [...] for Pain. 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 Gender Identity Not on file Sexual Orientation Not on file Last Filed Vital Signs Vital Sign Reading Time Taken Comments Blood Pressure 124/70 06/12/2013 1:29 PM AUTO BODY REPAIR ESTIMATOR Pulse 86 07/03/2012 4:20 PM AUTO BODY REPAIR ESTIMATOR Temperature 36.6 C (97.8 F) 07/03/2012 4:20 PM AUTO BODY REPAIR ESTIMATOR Respiratory Rate 18 07/03/2012 4:20 PM AUTO BODY REPAIR ESTIMATOR Oxygen Saturation 99% 07/03/2012 4:20 PM AUTO BODY REPAIR ESTIMATOR Inhaled Oxygen Concentration - - Weight 60.8 kg (134 lb) 06/12/2013 1:29 PM AUTO BODY REPAIR ESTIMATOR Height 157.5 cm (5' 2) 06/12/2013 1:29 PM AUTO BODY REPAIR ESTIMATOR Body Mass Index 24.51 06/12/2013 1:29 PM AUTO BODY REPAIR ESTIMATOR Plan of Treatment Health Maintenance Due Date [...] DEPRESSION SCREENING 05/01/2024 COVID-19 VACCINE (2 - season) 2024 07/06/2020 INFLUENZA VACCINE (#1) 2024 [...] this topic Medical Devices Implanted Type Area Branch Credit Counselor Device Identifier Shelf Expiration Date Model / Serial / Lot Slng Lynx Mid-Ureth Implanted:Qty: 1 on 07/03/2012 by Erika Hernández MD at [facility] N/A: Pelvis [employer] Print System Scimed 03/31/2015 [id number] / / [id number] [place] [address] [facility] RISK SELF PAY NO INSURANCE Member Subscriber Plan / Payer (Ef fective for All Dates) Name:Angelia Ca Navid Member ID:Not on file Relation to Subscriber:Not on file Name:DAMONANGELIA Subscriber ID:Not on file (Home) Address: [address] [place] [address] [address] Payer ID:Not on file Group ID:Not on file Type:Self Pay Address: [place], [place] MEDICARE [facility] Care Teams Technology Coach Relationship Specialty Start Date End Date Noel Gomez DO PCP - General Internal Medicine 07/03/12
--- OUTSIDE RECORDS SUMMARY | 2025-02-24 12:20 | XMS_ITS | Clinical Summary ---
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
--- OUTSIDE RECORDS SUMMARY | 2025-02-24 12:20 | XMS_ITS | Encounter Summary ---
Author Organization [facility] Address [facility] [place] [address] Care Team Providers Care Medical Clerk Name Role Phone Noel Gomez DO Primary Care Provider [phone] Encounter Details Date Type Department Care Team (Late st Contact Info) Description 02/11/2025 Lab Requisition [facility] - Pathology Lab [address] [place] [address] Tyson Main MD [address] [address] Illness, unspecified Social History Tobacco Use Types Packs/Day Years Used Date Smoking Tobacco: Former Cigarettes Q uit: 06/06/1974 Alcohol Use Standard Drinks/Week Comments Yes 0 (1 standard drink = 0.6 oz pur e alcohol) Comments No Sex and Gender Information Value Date Recorded Sex Assigned at Not on file 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
== END 2025-02-24 10:50 | disposition home or self-care (01) ==
LOC: ANHFOHIMG 10:50
PROVIDERS: Visit Provider Internal Medicine
DX: M81.0 Age-related osteoporosis without current pathological fracture (principal); M85.852 Other specified disorders of bone density and structure, left thigh; M85.851 Other specified disorders of bone density and structure, right thigh
CPT/HCPCS: 77080

== ENCOUNTER 2025-04-26 21:27 | Inpatient (IN) | payer MEDICARE, OTHER, SELFPAY ==
--- OUTSIDE RECORDS SUMMARY | 2020-04-06 08:00 | XMS_ITS | Continuity of Care Document ---
Author Organization [facility] Address [address] [place] [address] [address] [place] [address] Phone Care Team Providers Care Forestry Tree Pruner Name Role Phone Glenn Acosta PT Unavailable Unavailable Procedures Procedure Date Therapeutic Activities Therapeutic Exercise Manual Therapy Neuromuscular Re-Ed Therapeutic Activities Therapeutic Exercise Neuromuscular Re-Ed Manual Therapy Therapeutic Activities Neuromuscular Re-Ed Therapeutic Exercise Hot or Cold Pack Therapeutic Activities Progress Note Neuromuscular Re-Ed Hot or Cold Pack Therapeutic Exercise Neuromuscular Re-Ed Therapeutic Activities Hot or Cold Pack Therapeutic Exercise Neuromuscular Re-Ed Therapeutic Activities Therapeutic Exercise Hot or Cold Pack Therapeutic Activities Neuromuscular Re-Ed Therapeutic Exercise Hot or Cold Pack Therapeutic Activities Neuromuscular Re-Ed Therapeutic Exercise Hot or Cold Pack Neuromuscular Re-Ed Therapeutic Exercise Hot or Cold Pack Therapeutic Activities Hot or Cold Pack Neuromuscular Re-Ed Therapeutic Exercise Progress Note Therapeutic Activities Neuromuscular Re-Ed Hot or Cold Pack Therapeutic Exercise Therapeutic Activities Neuromuscular Re-Ed Hot or Cold Pack Therapeutic Exercise Therapeutic Activities Hot or Cold Pack Neuromuscular Re-Ed Therapeutic Exercise Therapeutic Activities Neuromuscular Re-Ed Hot or Cold Pack Therapeutic Exercise Therapeutic Activities Neuromuscular Re-Ed Therapeutic Exercise Therapeutic Activities Therapeutic Exercise Neuromuscular Re-Ed Hot or Cold Pack Therapeutic Activities PT Evaluation Low Complexity Therapeutic Exercise Advance Directives Directive Yes / No Effective Date File Name No Information Encounters Encounter Description Practice Location Reason(s) For Visit Diagnoses Date Provider Providers Copied on Encounter [facility]if [address] [place] [address], [id number], tel:[phone] [place] No Information Dellamano Glenn. . [facility] [place] [address], [id number], tel:[phone] [place] No Information Dellamano Glenn. . [facility] [place] [address], [id number], tel:[phone] [place] No Information Dellamano Glenn. . [facility], [place], [id number], tel:[phone] [place] No Information Dellamano Glenn. . [facility], [place], [place], [id number], tel:[phone] [place] No Information Dellamano Glenn. . [facility], [place], [place], [id number], tel:[phone] [place] No Information Dellamano Glenn. . [facility], [place], [place], [id number], tel:[phone] [place] No Information Dellamano Glenn. . [facility], [place], [place], [id number], tel:[phone] [place] No Information Dellamano Glenn. . [facility], [place], [place], [id number], tel:[phone] [place] No Information Dellamano Glenn. . [facility], [place], [id number], tel:[phone] [place] No Information Dellamano Glenn. . [facility], [place], [place], [id number], [place] tel:[phone] [place] No Information Dellamano Glenn. . [facility], [place], [place], [id number], tel:[phone] [place] No Information Dellamano Glenn. . [facility], [place], [place], [id number], [place] tel:[phone] [place] No Information Dellamano Glenn. . [facility], [place], [id number], [place] tel:[phone] [place] No Information Dellamano Glenn. . [facility], [place], [place], [id number], [place] tel:[phone] [place] No Information Karla Elizabeth. . [facility], [place], [place], [id number], tel:[phone] [place] No Information Karla Elizabeth. . [facility], [place], [place], [id number], tel:[phone] [place] No Information Karla Elizabeth. . Family History Family Member Type Diagnosis Age At Onset No Information Payers Payer name Insurance type Covered libertarian ID Authorfranklyna tisalo(s) Medicare [place] [id number] [facility] [id number] [id number] Social History Type Description Quantity Date Captured Comments Sex Female Smoking Status No Information Chief Complaint And Reason For Visit No Information Reason For Referral Reason For Referral No Information History Of Present Illness Encounter Date Complaint History Of Prese nt Illness No Information Functional Status Date Functional Assessmen t No Information Instructions Date Instruction Additional Infor mation No Information Assessments Type Assessment Date No Information Patient Care Teams Name Effective Dates (start - stop) Status Members No Information
--- OUTSIDE RECORDS SUMMARY | 2022-11-29 08:24 | XMS_ITS | Encounter Summary ---
Author Organization [facility] Address [address] [place] [address] Phone Care Team Providers Care Child Care Teacher Name Role Phone Naila Marroquin MD Primary Care Provider [phone] Janine Bañuelos RN Unavailable UnaJohn Paul Sawant MD Unavailable [phone] Sindy Armstrong RN Unavailable Darlene vailable Reason for Referral * Procedure (Routine) - Closed Specialty Diagnoses / Procedures Referred By Jus lin Referred To Contact Diagnoses ILD (interstitial lung disease) (HCC) Procedures Pulmonary Function Test -[facility] Adult [facility]FT [facility]- [facility]; Spirometry, Oxygen Assessment Titration Lesli Rcihard MD [address] [place] [address] Phone: tel: fax: Referral ID Status Reason Start Date Expiration Date Visits Re quested Visits Authorized [id number] Closed 10/17/2022 11/16/2023 1 1 Reason for Visit * Procedure (Routine) - Closed Specialty Diagnoses / Procedures Referred By Jus lin Referred To Contact Diagnoses ILD (interstitial lung disease) (HCC) Procedures Pulmonary Function Test -[facility] Adult PFT [facility]- [facility]; Spirometry, Oxygen Assessment Titration Lesli Richard MD [address] [facility] [address] [place] [address] Phone: tel: fax: Referral ID Status Reason Start Date Expiration Date Visits Re quested Visits Authorized [id number] Closed 10/17/2022 11/16/2023 1 1 Encounter Details Date Type Department Care Team (Latest Contact Info) Description 11/29/2022 9:24 AM CDT [facility] [address] [facility] [address] [place] [address] ILD (interstitial lung disease) ([facility]) Social History Tobacco Use Types Packs/Day Years Used Date Smoking Tobacco: Former Cigarettes Q uit: 1975 Smokeless Tobacco: Never Alcohol Use Standard Drinks/Week Comments Yes 5 (1 standard drink = 0.6 oz pur e alcohol) Social Connection and Isolation Panel Answer Date Recorded In a typical week, how many times do you talk on the phone with family, friends, or neighbors? More than three times a week 01/25/2023 How often do you get togethe r with friends or relatives? More than three times a week 01/25/2023 How often do you attend chur ch or cheondoism services? Never 01/25/2023 Do you belong to any clubs o r organizations such as hoahaoism groups, unions, fraternal or athletic groups, or school groups? No 01/25/2023 How often do you attend meet ings of the clubs or organizations you belong to? Never 01/25/2023 Are you , , di vorced, , never , or living with a partner? Living with partner 01/25/2023 AUDIT-C Answer Date Recorded Frequency of Alcohol Consumption Not on file 03/26/2024 Q2: How many drinks containi ng alcohol do you have on a typical day when you are drinking? Patient does not drink Frequency of Binge Drinking Not on file 03/02 Overall Financial Resource Strain (CARDIA) Answe r Date Recorded How hard is it for you to pa y for the very basics like food, housing, medical care, and heating? Not very hard 01/25/2023 Hunger Vital Sign Answer Date Recorded Within the past 12 months, y ou worried that your food would run out before you got the money to buy more. Never true 01/26/20 23 Within the past 12 months, t he food you bought just didn't last and you didn't have money to get more. Never true 01/25/2023 PRAPARE - Transportation Answer Date Re corded In the past 12 months, has l ack of transportation kept you from medical appointments or from getting medications? No 12/31 In the past 12 months, has l ack of transportation kept you from meetings, work, or from getting things needed for daily living? No 01/25/2023 Housing Stability Vital Sign Answer Diego e Recorded In the last 12 months, was t here a time when you were not able to pay the mortgage or rent on time? No 01/25/2023 In the last 12 months, how many places have you lived? 1 01/25/2023 In the last 12 months, was t here a time when you did not have a steady place to sleep or slept in a long term (including now)? No 01/25/2023 Personal Safety Answer Date Recorded Have you ever been in or are you currently in a harmful physical or emotional relationship or is someone making you feel afraid or unsafe? Denies 05/06/2023 Comments No Sex and Gender Information Value Date Recorded Sex Assigned at Not on file Legal Sex Female 8:29 PM EDUCATIONAL SPECIALIST Gender Identity Female 09/24/2021 1:08 PM CDT Sexual Orientation Not on file Occupation Industry Job Start Date Job End Date Retired Not on file Not on file Not on file documented as of this encounter Plan of Treatment Not on file documented as of this encounter Procedures Procedure Name Priority Date/Time Associated Diagnosis Comments PULMONARY FUNCTION TEST (PFT) Routine 11/29/2022 10:00 AM CDT ILD (interstitial lung disease) (HCC) documented in this encounter Results * Pulmonary Function Test - (11/29/2022 10:00 AM CDT) FVC PRE 1.35 L [facility] FVC %PRE PRED 54 % [facility] FEV1 PRE 1.25 L [facility] FEV1 %PRE PRED 64 % [facility] FEV1/FVC PRE 92.6 % [facility] Anatomical Region Laterality Modality PFT 11/29/2022 9:27 AM CDT Narrative 12/04/2022 10:49 AM CDT Table formatting from the original result was not included. [facility] Division of Pulmonary & Critical Care Medicine [address] [place] [address]; [place] [address]; [place] [address]; [phone] Pulmonary Function Laboratory Pulmonary Stress Test Simple/Oxygen Assessment Patient: Angelia Ca Date: 11/29/2022 : 1945 Ht: 62 IN Wt: 120 LBS Time (min) Distance (ft)/ Witt O2 L/M SpO2 HR Alicia* BP FEV1 % Pred Rest: RA 97 64 1 116/65 1.25 64 % Walk/Bike: 1 RA 96 74 1 2 RA 95 81 2 3 RA 94 83 3 4 RA 93 90 3 5 RA 94 82 4 6 min 0 sec Recovery: 1 RA 95 88 4 123/67 1.27 65% 3 RA 96 72 3 *Alicia rate of perceived exertion (1-10 dyspnea scale) Wallace, CHEST 2003; 123:1408 Walk Test Summary: Six Minute Walk Distance: 900 ft Six-minute Walk Work [distance (m) x body wt (kg)]: 40496 kg.m (normal >60,000kg.m) Oxygen required to maintain SpO2 greater than 90% during six minutes of walkin L/M Comments: O2A- ATS STANDARDS- STOPPED AT 5 MIN DUE TO VERTIGO. Interpretation: Breathing room air, SpO2 is normal at rest and during exercise sufficient to increase pulse from 64 to 90 b/min, SpO2 is stable. On this basis, SpO2 is adequate at rest breathing room air and while walking breathing room air. This level of exercise is associated with no significant change of FEV1. Anish Aldrich M.D. By signing this report, the attending pulmonary physician certifies that he/she has personally reviewed and interpreted the graphic and numerical data associated with this pulmonary function study and has reviewed and /or edited a preliminary draft report and agrees with the written final report. [facility] Procedure:->Spirometry Procedure:->Oxygen Assessment Titration us Lesli Richard MD PFT ORDERABLES Final Result documented in this encounter Visit Diagnoses Diagnosis ILD (interstitial lung disease) (HCC) Postinflammatory pulmonary fibrosis documented in this encounter Additional Health Concerns Infection Onset Date Last Indicated Resolved Time COVID: Suspected 01/24/2023 01/24/2023 01/24/2023 1:28 AM CDT COVID: Suspected 01/24/2023 01/25/2023 01/25/2023 11:46 AM CDT COVID19 Comment:COVID + on home test. Symptoms started 3 days ago. 05/06/2023 05/06/2023 05/16/2023 3:05 AM EDUCATIONAL SPECIALIST COVID: Recovered Comment:Added based on recent COVID infection. 05/16/2023 05/23/2023 08/14/2023 3:05 AM C DT documented as of this encounter Care Teams Child Care Teacher Relationship Specialty Start Date End Date Naila Marroquin MD [address] [facility] [address] [place] [address] PCP - General 07/21/17 Janine Bañuelos, promotional model Nurse 08/02/18 John Paul Springer MD Consulting Physician Orthopedic Surgery 12/05/19 Sindy Armstrong, RN Registered Nurse Pulmonary Disease 03/23/22 documented as of this encounter
--- OUTSIDE RECORDS SUMMARY | 2022-11-29 08:24 | XMS_ITS | Encounter Summary ---
Author Organization [facility] Address [address] [place] [address] Phone Care Team Providers Care Cardiologist Name Role Phone Naila Marroquin MD Primary Care Provider [phone] Janine Bañuelos RN Unavailable UnaJohn Paul Sawant MD Unavailable Sindy Armstrong RN Unavailable Darlene vailable Reason for Referral * Procedure (Routine) - Closed Specialty Diagnoses / Procedures Referred By Jus lin Referred To Contact Diagnoses ILD (interstitial lung disease) (HCC) Procedures Pulmonary Function Test -[facility] Adult PFT Lab- [facility]; Spirometry, Oxygen Assessment Titration Lesli Richard MD [address] [place] [address] Phone: tel: fax: Referral ID Status Reason Start Date Expiration Date Visits Re quested Visits Authorized [id number] Closed 10/17/2022 11/16/2023 1 1 Reason for Visit * Procedure (Routine) - Closed Specialty Diagnoses / Procedures Referred By Jus lin Referred To Contact Diagnoses ILD (interstitial lung disease) (HCC) Procedures Pulmonary Function Test -[facility] Adult PFT Lab- [facility]; Spirometry, Oxygen Assessment Titration Lesli Richard MD [address] [facility] [address] [place] [address] Phone: tel: fax: Referral ID Status Reason Start Date Expiration Date Visits Re quested Visits Authorized [id number] Closed 10/17/2022 11/16/2023 1 1 Encounter Details Date Type Department Care Team (Latest Contact Info) Description 11/29/2022 9:24 AM CDT [facility] 10 [facility] [address] [place] [address] ILD [facility]inter[facility] Social History Tobacco Use Types Packs/Day Years [...] often do you attend chur ch or congregation services? Never 01/25/2023 Do you belong to any clubs o r organizations such as congregation groups, unions, fraternal or athletic groups, or [...] place to sleep or slept in a prison (including now)? No 01/25/2023 Personal Safety Answer Date Recorded Have you ever been in or are you currently in a harmful physical or emotional relationship or is someone making you feel afraid or unsafe? Denies 05/06/2023 Comments No Sex and Gender Information Value Date Recorded Sex Assigned at Not on file Legal Sex Female 8:29 PM HOTEL GENERAL MANAGER Gender Identity Female 09/24/2021 1:08 PM CDT [...] 10:00 AM CDT) FVC PRE 1.35 L [facility] FVC %PRE PRED 54 % [facility] FEV1 PRE 1.25 L [facility] FEV1 %PRE PRED 64 % [facility] FEV1/FVC PRE 92.6 % [facility] Anatomical Region Laterality Modality PFT 11/29/2022 9:27 AM CDT Narrative 12/04/2022 10:49 AM CDT Table formatting from the original result was not included. [facility] Division of Pulmonary & Critical Care Medicine [address] [place] [address]; [place] [address]; [place] [address]; [phone] Pulmonary Function Laboratory Pulmonary Stress Test Simple/Oxygen [...] Work [distance (m) x body wt (kg)]: 80706 kg.m (normal >60,000kg.m) Oxygen required to maintain [...] with the written final report. PFT performed at:->[facility] Adult PFT Lab- [facility] Procedure:->Spirometry Procedure:->Oxygen Assessment Titration us Lesli Richard [...] days ago. 05/06/2023 05/06/2023 05/16/2023 3:05 AM HOTEL GENERAL MANAGER COVID: Recovered Comment:Added based on recent COVID infection. 05/16/2023 05/23/2023 08/14/2023 3:05 AM C DT documented as of this encounter Care Teams Cardiologist Relationship Specialty Start Date End Date Naila Marroquin MD [address] [facility] [address] [place] [address] PCP - General 07/21/17 Janine Bañuelos, television maintenance man Nurse 08/02/18 John Paul Springer MD Consulting Physician Orthopedic Surgery 12/05/19 Sindy Armstrong, RN Registered Nurse Pulmonary Disease 03/23/22 documented as of this encounter
--- OUTSIDE RECORDS SUMMARY | 2023-03-21 09:42 | XMS_ITS | Encounter Summary ---
Author Organization [facility] Address [address] [place] [address] Phone Care Team Providers Care Mill Worker Name Role Phone Naila Marroquin MD Primary Care Provider [phone] Janine Bañuelos RN Unavailable UnavaJohn Paul Gillette MD Unavailable [phone] Sindy Armstrong RN Unavailable Darlene vailable Reason for Referral * Procedure (Routine) - Closed Specialty Diagnoses / Procedures Referred By Jus lin Referred To Contact Diagnoses ILD (interstitial lung disease) (HCC) Procedures Pulmonary Function Test -[facility] Adult PFT [facility]- [facility]; Spirometry, Oxygen Assessment Titration Lesli Richard MD [address] [place] [address] Phone: tel: fax: Referral ID Status Reason Start Date Expiration Date Visits Re quested Visits Authorized [id number] Closed 11/29/2022 12/29/2023 1 1 ERTY FIELD INSPECTOR Reason for Visit * Procedure (Routine) - Closed Specialty Diagnoses / Procedures Referred By Jus t Referred To Contact Diagnoses ILD (interstitial lung disease) (HCC) Procedures Pulmonary Function Test -[facility] Adult PFT [facility]- [facility]; Spirometry, Oxygen Assessment Titration Lesli Richard MD [address] [facility] [address] [place] [address] Phone: tel: fax: Referral ID Status Reason Start Date Expiration Date Visits Re quested Visits Authorized [id number] Closed 11/29/2022 12/29/2023 1 1 Encounter Details Date Type Department Care Team (Latest Contact Info) Description 03/21/2023 9:42 AM PROPERTY FIELD INSPECTOR Hospital Encounter [facility] Medicine PFT Lab 10 [facility] Office [address] [place] [address] ILD (interstitial lung disease) ([facility]) Social History Tobacco Use Types Packs/Day [...] often do you attend chur ch or temple services? Never 01/25/2023 Do you belong to any clubs o r organizations such as catholic groups, unions, fraternal or athletic groups, or [...] place to sleep or slept in a [place] [facility] [place] (including now)? No 01/25/2023 Personal Safety Answer Date Recorded Have you ever been in or are you currently in a harmful physical or emotional relationship or is someone making you feel afraid or unsafe? Denies 05/06/2023 Comments No Sex and Gender Information Value Date Recorded Sex Assigned at Not on file Legal Sex Female 8:29 PM PROPERTY FIELD INSPECTOR Gender Identity Female 09/24/2021 1:08 PM CDT Sexual Orientation Not on file Occupation Industry Job Start Date Job End Date Retired Not on file Not on file Not on file documented as of this encounter Plan of Treatment Not on file documented as of this encounter Procedures Procedure Name Priority Date/Time Associated Diagnosis Comments PULMONARY FUNCTION TEST (PFT) Routine 03/21/2023 10:53 AM PROPERTY FIELD INSPECTOR ILD (interstitial lung disease) (HCC) documented in this encounter Results * Pulmonary Function Test - (03/21/2023 10:53 AM PROPERTY FIELD INSPECTOR) FVC PRE 1.35 L [facility] FVC %PRE PRED 56 % [facility] FEV1 PRE 1.31 L [facility] FEV1 %PRE PRED 71 % [facility] FEV1/FVC PRE 96.9 % [facility] Anatomical Region Laterality Modality PFT 03/21/2023 9:59 AM PROPERTY FIELD INSPECTOR Impressions 03/24/2023 3:13 PM PROPERTY FIELD INSPECTOR There is a moderate restrictive ventilatory defect. However measurement of lung volumes is suggested to confirm this if clinically indicated. Compared with study dated 11/29/22 , there has been no significant interval change. The attending pulmonary physician certifies a physician presence in the [facility] during the administration of aerosolized bronchodilator. The attending pulmonary physician certifies that he/she has reviewed and interpreted the graphic and numerical data of this pulmonary function study and agrees with the written final report. The lower limit of normal for PO2 and %HbO2 is age dependent. However, the [facility] Pulmonary Function Laboratory defines hypoxemia as a PO2 <55 or a %HbO2 <89. Narrative 03/24/2023 3:13 PM PROPERTY FIELD INSPECTOR Table formatting from the original result was not included. [facility] Division of Pulmonary & Critical Care Medicine [address] [place] [address]; [place] [address] [facility]; [place] [address]; [phone] Pulmonary Function Laboratory Pulmonary Stress Test Simple/Oxygen Assessment Patient: Angelia Ca Date: 03/21/2023 : 1945 Ht: 61 in Wt: 118 lbs Time (min) Distance (ft)/ Witt O2 L/M SpO2 HR Alicia* BP FEV1 % Pred Rest: RA 98 79 0 116/62 1.31 71 % Walk/Bike: 1 RA 97 93 0.5 2 RA 94 101 3 3 RA 92 102 4 4 RA 92 99 4 5 RA 92 99 5 6 min 0 sec RA 92 99 5 Recovery: 1 RA 95 105 3 129/71 1.20 65 % 3 RA 95 86 2/3 *Alicia rate of perceived exertion (1-10 dyspnea scale) Wallace, CHEST 2003; 123:1408 Walk Test Summary: Six Minute Walk Distance: 950 ft Six-minute Walk Work [distance (m) x body wt (kg)]: 83637 kg.m (normal >60,000kg.m) Oxygen required to maintain SpO2 greater than 90% during six minutes of walkin L/M Comments: O2A ATS script. Head sensor. 1 stop of 30 seconds after 750' due to shortness of breath. Interpretation: Breathing room air, SpO2 is normal at rest and during exercise sufficient to increase pulse from 79 to 102 b/min, SpO2 is falls but remains normoxemic. On this basis, SpO2 is adequate at rest breathing room air and while walking breathing room air. This level of exercise is associated with no significant change of FEV1. Jake Suarez M.D. By signing this report, the attending pulmonary physician certifies that he/she has personally reviewed and interpreted the graphic and numerical data associated with this pulmonary function study and has reviewed and /or edited a preliminary draft report and agrees with the written final report. PFT performed at:->[facility] Adult PFT Lab- [facility] Procedure:->Spirometry Procedure:->Oxygen Assessment Titration Pulmonary Function Test Interpretation SPIROMETRY: The FEV-I and FVC are reduced in a pattern suggestive of a restrictive abnormality. FLOW VOLUME LOOPS: The inspiratory loop is appropriate for the expiratory flow abnormality. Lesli Richard MD PFT ORDERABLES Final Result documented in this encounter Visit Diagnoses Diagnosis ILD (interstitial lung disease) (HCC) Postinflammatory pulmonary fibrosis documented in this encounter Additional Health Concerns Infection Onset Date Last Indicated Resolved Time COVID19 Comment:COVID + on home test. Symptoms started 3 days ago. 05/06/2023 05/06/2023 05/16/2023 3:05 AM PROPERTY FIELD INSPECTOR COVID: Recovered Comment:Added based on recent COVID infection. 05/16/2023 05/23/2023 08/14/2023 3:05 AM C DT documented as of this encounter Care Teams Mill Worker Relationship Specialty Start Date End Date Naila Marroquin MD [address] [place] [address] [address] [place] [address] PCP - General 07/21/17 Janine Bañuelos, theater set production designer Nurse 08/02/18 John Paul Springer MD Consulting Physician Orthopedic Surgery 12/05/19 Sindy Armstrong, ALEXANDRA Registered Nurse Pulmonary Disease 03/23/22 documented as of this encounter
--- OUTSIDE RECORDS SUMMARY | 2023-03-21 09:42 | XMS_ITS | Encounter Summary ---
Author Organization [facility] Address [address] [place] [address] Phone Care Team Providers Care Jewelry Casting Model Maker Name Role Phone Naila Marroquin MD Primary Care Provider [phone] Janine Bañuelos RN Unavailable UnavaJohn Paul Gillette MD Unavailable [phone] Sindy Armstrong RN Unavailable Darlene vailable Reason for Referral * Procedure (Routine) - Closed Specialty Diagnoses / Procedures Referred By Jus lin Referred To Contact Diagnoses ILD (interstitial lung disease) (HCC) Procedures Pulmonary Function Test -[facility] Adult PFT Lab- [facility]; Spirometry, Oxygen Assessment Titration Lesli Richard MD [address] [place] [address] Phone: tel: fax: Referral ID Status Reason Start Date Expiration Date Visits Re quested Visits Authorized [id number] Closed 11/29/2022 12/29/2023 1 1 UER SPRAYER Reason for Visit * Procedure (Routine) - Closed Specialty Diagnoses / Procedures Referred By Jus t Referred To Contact Diagnoses ILD (interstitial lung disease) (HCC) Procedures Pulmonary Function Test -[facility] Adult PFT Lab- [facility]; Spirometry, Oxygen Assessment Titration Lesli Richard MD [address] [facility] [address] [place] [address] Phone: tel: fax: Referral ID Status Reason Start Date Expiration Date Visits Re quested Visits Authorized [id number] Closed 11/29/2022 12/29/2023 1 1 Encounter Details Date Type Department Care Team (Latest Contact Info) Description 03/21/2023 9:42 AM LACQUER SPRAYER Hospital Encounter [facility] Medicine PFT Lab 10 [facility] Office [address] [place] [address] ILD (interstitial lung disease) ([facility]) Social History Tobacco Use Types [...] often do you attend chur ch or taoist services? Never 01/25/2023 Do you belong to any clubs o r organizations such as denominational groups, unions, fraternal or athletic groups, or [...] place to sleep or slept in a mcc (including now)? No 01/25/2023 Personal Safety Answer Date Recorded Have you ever been in or are you currently in a harmful physical or emotional relationship or is someone making you feel afraid or unsafe? Denies 05/06/2023 Comments No Sex and Gender Information Value Date Recorded Sex Assigned at Not on file Legal Sex Female 8:29 PM LACQUER SPRAYER Gender Identity Female 09/24/2021 1:08 PM CDT Sexual Orientation Not on file Occupation Industry Job Start Date Job End Date Retired Not on file Not on file Not on file documented as of this encounter Plan of Treatment Not on file documented as of this encounter Procedures Procedure Name Priority Date/Time Associated Diagnosis Comments PULMONARY FUNCTION TEST (PFT) Routine 03/21/2023 10:53 AM LACQUER SPRAYER ILD (interstitial lung disease) (HCC) documented in this encounter Results * Pulmonary Function Test - (03/21/2023 10:53 AM LACQUER SPRAYER) FVC PRE 1.[address] [facility] FVC %PRE PRED 56 % [facility] FEV1 PRE 1.[address] [facility] FEV1 %PRE PRED 71 % [facility] FEV1/FVC PRE 96.9 % [facility] Anatomical Region Laterality Modality PFT 03/21/2023 9:59 AM LACQUER SPRAYER Impressions 03/24/2023 3:13 PM LACQUER SPRAYER There is a moderate restrictive ventilatory defect. [...] and %HbO2 is age dependent. However, the [facility] Pulmonary Function Laboratory defines hypoxemia as a PO2 <55 or a %HbO2 <89. Narrative 03/24/2023 3:13 PM LACQUER SPRAYER Table formatting from the original result was not included. [facility] Division of Pulmonary & Critical Care Medicine [address] [place] [address]; [place] [address] [facility]; [place] [address]; [phone] Pulmonary Function Laboratory Pulmonary Stress Test Simple/Oxygen [...] Work [distance (m) x body wt (kg)]: 18211 kg.m (normal >60,000kg.m) Oxygen required to maintain [...] with the written final report. PFT performed at:->[employer] U Adult PFT Lab- [facility] Procedure:->Spirometry Procedure:->Oxygen Assessment Titration Pulmonary Function Test [...] days ago. 05/06/2023 05/06/2023 05/16/2023 3:05 AM LACQUER SPRAYER COVID: Recovered Comment:Added based on recent COVID infection. 05/16/2023 05/23/2023 08/14/2023 3:05 AM C DT documented as of this encounter Care Teams Jewelry Casting Model Maker Relationship Specialty Start Date End Date Naila Marroquin MD [address] [place] [address] [address] [place] [address] PCP - General 07/21/17 Janine Bañuelos, java portal developer Nurse 08/02/18 John Paul Springer MD Consulting Physician Orthopedic Surgery 12/05/19 Sindy Armstrong, ALEXANDRA Registered Nurse Pulmonary Disease 03/23/22 documented as of this encounter
--- OUTSIDE RECORDS SUMMARY | 2023-07-18 08:06 | XMS_ITS | Encounter Summary ---
Author Organization [facility] Address [address] [place] [address] Phone Care Team Providers Care Rodeo Clown Name Role Phone Naila Marroquin MD Primary Care Provider [phone] Janine Bañuelos RN Unavailable UnavaJohn Paul Gillette MD Unavailable [phone] Sindy Armstrong RN Unavailable Darlene vailable Reason for Referral * Procedure (Routine) - Closed Specialty Diagnoses / Procedures Referred By Contac t Referred To Contact Diagnoses ILD (interstitial lung disease) (HCC) Procedures Pulmonary Function Test -[facility] Adult PFT Lab- [facility]; Spirometry, Oxygen Assessment Titration Lesli Richard MD [address] [place] [address] Phone: tel: fax: Referral ID Status Reason Start Date Expiration Date Visits Re quested Visits Authorized [id number] Closed 03/21/2023 04/19/2024 1 1 Reason for Visit * Procedure (Routine) - Closed Specialty Diagnoses / Procedures Referred By Contac t Referred To Contact Diagnoses ILD (interstitial lung disease) (HCC) Procedures Pulmonary Function Test -[facility] Adult PFT Lab- [facility]; Spirometry, Oxygen Assessment Titration Lesli Richard MD [address] [place] [address] Phone: tel: fax: Referral ID Status Reason Start Date Expiration Date Visits Re quested Visits Authorized [id number] Closed 03/21/2023 04/19/2024 1 1 Encounter Details Date Type Department Care Team (Latest Contact Info) Description 07/18/2023 9:06 AM CDT [facility] 10 [facility] [address] [place] [address] ILD (interstitial lung disease) ([facility]) Social History Tobacco Use Types Packs/Day Years [...] often do you attend chur ch or buddhism services? Never 01/25/2023 Do you belong to any clubs o r organizations such as confucianism groups, unions, fraternal or athletic groups, or [...] place to sleep or slept in a alf (including now)? No 01/25/2023 Personal Safety Answer Date Recorded Have you ever been in or are you currently in a harmful physical or emotional relationship or is someone making you feel afraid or unsafe? Denies 05/06/2023 Comments No Sex and Gender Information Value Date Recorded Sex Assigned at Not on file Legal Sex Female 8:29 PM TOE LINING CLOSER Gender Identity Female 09/24/2021 1:08 PM CDT Sexual Orientation Not on file Occupation Industry Job Start Date Job End Date Retired Not on file Not on file Not on file documented as of this encounter Plan of Treatment Not on file documented as of this encounter Procedures Procedure Name Priority Date/Time Associated Diagnosis Comments PULMONARY FUNCTION TEST (PFT) Routine 07/18/2023 9:43 AM CDT ILD (interstitial lung disease) (HCC) documented in this encounter Results * Pulmonary Function Test - (07/18/2023 9:43 AM CDT) FVC PRE 1.25 L [facility] FVC %PRE PRED 52 % [facility] FEV1 PRE 1.16 L [facility] FEV1 %PRE PRED 63 % [facility] FEV1/FVC PRE 92.6 % [facility] Anatomical Region Laterality Modality PFT 07/18/2023 9:09 AM CDT Impressions 07/19/2023 8:01 PM CDT There is a moderate restrictive ventilatory defect. However measurement of lung volumes is suggested to confirm this if clinically indicated. Compared with study dated 03/21/33 , there has been no significant interval [...] and %HbO2 is age dependent. However, the [facility] Pulmonary Function Laboratory defines hypoxemia as a PO2 <55 or a %HbO2 <89. Narrative 07/19/2023 8:01 PM CDT Table formatting from the original result was not included. [facility] Division of Pulmonary & Critical Care Medicine [address] [place] [address]; [place] [address] [facility]; [place] [address]; [phone] Pulmonary Function Laboratory Pulmonary Stress Test Simple/Oxygen Assessment Patient: Angelia Ca Date: 07/18/2023 : 1945 Ht: 62 IN Wt: 120 LBS Time (min) Distance (ft)/ Witt O2 L/M SpO2 HR Alicia* BP FEV1 % Pred Rest: RA 100 82 1 105/61 1.16 63% % Walk/Bike: 1 RA 99 84 2 2 RA 96 96 3 3 RA 95 101 4 4 RA 95 104 4 5 RA 95 107 5 6 min 0 sec RA 96 99 5 Recovery: 1 RA 99 118 4 132/73 1.16 63% 3 RA 97 105 3 *Alicia rate of perceived exertion (1-10 dyspnea scale) Wallace, CHEST 2003; 123:[id number] Walk Test Summary: Six Minute Walk Distance: 1125 ft Six-minute Walk Work [distance (m) x body wt (kg)]: 60656 kg.m (normal >60,000kg.m) Oxygen required to maintain SpO2 greater than 90% during six minutes of walkin L/M Comments: Interpretation: Breathing room air, SpO2 is normal at rest and during exercise sufficient to increase pulse from 82 to 99 b/min, SpO2 falls but remains normoxemic. On this basis, [...] final report. PFT performed at:->[facility] Adult PFT Lab- [facility] Procedure:->Spirometry Procedure:->Oxygen Assessment Titration Pulmonary Function Test Interpretation SPIROMETRY: The FEV-I and FVC are reduced in a pattern suggestive of a restrictive abnormality. However, measurement of lung volumes is suggested to confirm this if clinically indicated. FLOW VOLUME LOOPS: The inspiratory loop is appropriate for the expiratory flow abnormality. 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 05/16/2023 05/23/2023 08/14/2023 3:05 AM C DT documented as of this encounter Care Teams Rodeo Clown Relationship Specialty Start Date End Date Naila Marroquin MD [address] [facility] [address] [place] [address] PCP - General 07/21/17 Janine Bañuelos, accounts payable administrator Nurse 08/02/18 John Paul Springer MD Consulting Physician Orthopedic Surgery 12/05/19 Sindy Armstrong, ALEXANDRA Registered Nurse Pulmonary Disease 03/23/22 documented as of this encounter
--- OUTSIDE RECORDS SUMMARY | 2023-07-18 08:06 | XMS_ITS | Encounter Summary ---
Author Organization [facility] Address [address] [place] [address] Phone Care Team Providers Care Missionary Coordinator Name Role Phone Naila Marroquin MD Primary Care Provider [phone]- [phone] Janine Bañuelos RN Unavailable UnavaJohn Paul Gillette MD Unavailable [phone] Sindy Armstrong RN Unavailable Darlene vailable Reason for Referral * Procedure (Routine) - Closed Specialty Diagnoses / Procedures Referred By Contac t Referred To Contact Diagnoses ILD (interstitial lung disease) (HCC) Procedures Pulmonary Function Test -[facility] Adult PFT Lab- CAM-8D; Spirometry, Oxygen Assessment Titration Lesli Richard MD [address] [place] [address] Phone: tel: fax: Referral ID Status Reason Start Date Expiration Date Visits Re quested Visits Authorized [id number] Closed 03/21/2023 04/19/2024 1 1 Reason for Visit * Procedure (Routine) - Closed Specialty Diagnoses / Procedures Referred By Contac t Referred To Contact Diagnoses ILD (interstitial lung disease) (HCC) Procedures Pulmonary Function Test -[facility] Adult PFT Lab- CAM-8D; Spirometry, Oxygen Assessment Titration Lesli Richard MD [address] [place] [address] Phone: tel: fax: Referral ID Status Reason Start Date Expiration Date Visits Re quested Visits Authorized [id number] Closed 03/21/2023 04/19/2024 1 1 Encounter Details Date Type Department Care Team (Latest Contact Info) Description 07/18/2023 9:06 AM CDT [facility] 10 [facility] Office Building [address] [place] [address] ILD (interstitial lung disease) ([facility]) Social History Tobacco Use Types Packs/Day [...] often do you attend chur ch or alevism services? Never 01/25/2023 Do you belong to any clubs o r organizations such as buddhist groups, unions, fraternal or athletic groups, or [...] place to sleep or slept in a care home (including now)? No 01/25/2023 Personal Safety Answer Date Recorded Have you ever been in or are you currently in a harmful physical or emotional relationship or is someone making you feel afraid or unsafe? Denies 05/06/2023 Comments No Sex and Gender Information Value Date Recorded Sex Assigned at Not on file Legal Sex Female 8:29 PM COMMODITY MERCHANT Gender Identity Female 09/24/2021 1:08 PM CDT [...] 9:43 AM CDT) FVC PRE 1.25 L [facility] FVC %PRE PRED 52 % [facility] FEV1 PRE 1.16 L [facility] FEV1 %PRE PRED 63 % [facility] FEV1/FVC PRE 92.6 % [facility] Anatomical Region Laterality Modality PFT 07/18/2023 9:09 [...] and %HbO2 is age dependent. However, the [facility] Pulmonary Function Laboratory defines hypoxemia as a PO2 <55 or a %HbO2 <89. Narrative 07/19/2023 8:01 PM CDT Table formatting from the original result was not included. [facility] Division of Pulmonary & Critical Care Medicine [address] [place] [address]; [place] [facility]; [place] [address]; [phone] Pulmonary Function Laboratory Pulmonary Stress Test Simple/Oxygen [...] Work [distance (m) x body wt (kg)]: 37240 kg.m (normal >60,000kg.m) Oxygen required to maintain [...] with the written final report. PFT performed at:->[facility] Adult PFT Lab- CAM-8D Procedure:->Spirometry Procedure:->Oxygen [...] documented as of this encounter Care Teams Missionary Coordinator Relationship Specialty Start Date End Date Naila Marroquin MD [address] [facility] [address] [place] [address] PCP - General 07/21/17 Janine Bañuelos, parliamentary counsel Nurse 08/02/18 John Paul Springer MD Consulting Physician Orthopedic Surgery 12/05/19 Sindy Armstrong, ALEXANDRA Registered Nurse Pulmonary Disease 03/23/22 documented as of this encounter
--- OUTSIDE RECORDS SUMMARY | 2023-10-31 08:44 | XMS_ITS | Encounter Summary ---
Author Organization [facility] Address [address] [place] [address] Phone Care Team Providers Care Activities Manager Name Role Phone Naila Marroquin MD Primary Care Provider [phone] Janine Bañuelos RN Unavailable UnaJohn Paul Sawant MD Unavailable [phone] Sindy Armstrong RN Unavailable Darlene vailable Reason for Referral * Procedure (Routine) - Closed Specialty Diagnoses / Procedures Referred By Jus lin Referred To Contact Diagnoses ILD (interstitial lung disease) (HCC) Procedures Pulmonary Function Test -[facility] Adult PFT Lab- [facility]; Spirometry, Oxygen Assessment Titration Lesli Richard MD [address] [place] [address] Phone: tel: fax: Referral ID Status Reason Start Date Expiration Date Visits Re quested Visits Authorized [id number] Closed 10/27/2023 11/25/2024 1 1 Reason for Visit * Procedure (Routine) - Closed Specialty Diagnoses / Procedures Referred By Jus lin Referred To Contact Diagnoses ILD (interstitial lung disease) (HCC) Procedures Pulmonary Function Test -[facility] Adult PFT Lab- [facility]; Spirometry, Oxygen Assessment Titration Lesli Richard MD [address] [place] [address] Phone: tel: fax: Referral ID Status Reason Start Date Expiration Date Visits Re quested Visits Authorized [id number] Closed 10/27/2023 11/25/2024 1 1 Encounter Details Date Type Department Care Team (Latest Contact Info) Description 10/31/2023 9:44 AM CDT [facility] 10 [facility] Office [address] [place] [address] ILD (interstitial lung disease) ([facility]) Social History Tobacco Use Types Packs/Day Years [...] often do you attend chur ch or hindu services? Never 01/25/2023 Do you belong to any clubs o r organizations such as sikh groups, unions, fraternal or athletic groups, or [...] place to sleep or slept in a retirement (including now)? No 01/25/2023 Personal Safety Answer Date Recorded Have you ever been in or are you currently in a harmful physical or emotional relationship or is someone making you feel afraid or unsafe? 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 Gender Identity Female 09/24/2021 1:08 PM CDT Sexual Orientation Not on file Occupation Industry Job Start Date Job End Date Retired Not on file Not on file Not on file documented as of this encounter Plan of Treatment Not on file documented as of this encounter Procedures Procedure Name Priority Date/Time Associated Diagnosis Comments PULMONARY FUNCTION TEST (PFT) Routine 10/31/2023 10:14 AM CDT ILD (interstitial lung disease) (HCC) documented in this encounter Results * Pulmonary Function Test - (10/31/2023 10:14 AM CDT) FVC PRE 1.27 L [facility] FVC %PRE PRED 53 % [facility] FEV1 PRE 1.05 L [facility] FEV1 %PRE PRED 57 % [facility] FEV1/FVC PRE 82.4 % [facility] Anatomical Region Laterality Modality PFT 10/31/2023 9:47 AM CDT Impressions 11/01/2023 8:16 PM CDT There is a moderate restrictive ventilatory defect. However measurement of lung volumes is suggested to confirm this if clinically indicated. Compared with study dated 07.18.2023 , there has been no significant interval change. Lesli Richard MD The attending pulmonary physician certifies a physician presence in the [facility] Suite during the administration of aerosolized bronchodilator. The attending pulmonary physician certifies that he/she has reviewed and interpreted the graphic and numerical data of this pulmonary function study and agrees with the written final report. The lower limit of normal for PO2 and %HbO2 is age dependent. However, the [facility] Pulmonary Function Laboratory defines hypoxemia as a PO2 <55 or a %HbO2 <89. Narrative 11/01/2023 8:16 PM CDT Table formatting from the original result was not included. [facility] Division of Pulmonary & Critical Care Medicine [address] [place] [address]; [address] [facility]; [place] [address]; [phone] Pulmonary Function Laboratory Pulmonary Stress Test Simple/Oxygen Assessment Patient: Angelia Ca Date: 10/31/2023 : 1945 Ht: 61 IN Wt: 120 LBS Time (min) Distance (ft)/ Witt O2 L/M SpO2 HR Alicia* BP FEV1 % Pred Rest: RA 97 90 2 105/70 1.05 57 % Walk/Bike: 1 RA 98 106 2 2 RA 96 108 3 3 RA 94 114 3 4 RA 93 114 4 5 RA 93 115 5 6 min 0 sec RA 93 115 7 Recovery: 1 RA 94 115 5 126/88 0.96 52% 3 RA 94 110 4 *Alicia rate of perceived exertion (1-10 dyspnea scale) Wallace, CHEST 2003; 123:1408 Walk Test Summary: Six Minute Walk Distance: 1125 ft Six-minute Walk Work [distance (m) x body wt (kg)]: 45855 kg.m (normal >60,000kg.m) Oxygen required to maintain SpO2 greater than 90% during six minutes of walkin L/M Comments: Interpretation: Breathing room air, SpO2 is normal at rest and during exercise sufficient to increase pulse from 90 to 115 b/min, SpO2 falls but remains normoxemic . On this basis, SpO2 is adequate at rest breathing room air and while walking breathing room air. This level of exercise is associated with no significant change of FEV1. Lesli Richard M.D. By signing this report, the attending pulmonary physician certifies that he/she has personally reviewed and interpreted the graphic and numerical data associated with this pulmonary function study and has reviewed and /or edited a preliminary draft report and agrees with the written final report. PFT performed at:->[facility] Adult PFT Lab- [facility] Procedure:->Spirometry Procedure:->Oxygen Assessment Titration Pulmonary Function Test Interpretation SPIROMETRY: The FEVI to FVC ratio is normal. The FEV-I and FVC are reduced in a pattern suggestive of a restrictive abnormality. However, measurement of lung volumes is suggested to confirm this if clinically indicated. FLOW VOLUME LOOPS: The inspiratory loop is suggestive of submaximal effort. us Lesli Richard MD PFT ORDERABLES Final Result documented in this encounter Visit Diagnoses Diagnosis ILD (interstitial lung disease) (HCC) Postinflammatory pulmonary fibrosis documented in this encounter Care Teams Activities Manager Relationship Specialty Start Date End Date Naila Marroquin MD [address] [address] PCP - General 07/21/17 Janine Bañuelso, human resources coordinator Nurse 08/02/18 John Paul Springer MD Consulting Physician Orthopedic Surgery 12/05/19 Sindy Armstrong, ALEXANDRA Registered Nurse Pulmonary Disease 03/23/22 documented as of this encounter
--- OUTSIDE RECORDS SUMMARY | 2023-10-31 08:44 | XMS_ITS | Encounter Summary ---
Author Organization [facility] Address [address] [place] [address] Phone Care Team Providers Care Line Helper Name Role Phone Naila Marroquin MD Primary Care Provider [phone]- [phone] Janine Bañuelos RN Unavailable UnaJohn Paul Sawant MD Unavailable [phone] Sindy Armstrong RN Unavailable Darlene vailable Reason for Referral * Procedure (Routine) - Closed Specialty Diagnoses / Procedures Referred By Jus lin Referred To Contact Diagnoses ILD (interstitial lung disease) (HCC) Procedures Pulmonary Function Test -[facility] Adult PFT Lab- [facility]; Spirometry, Oxygen Assessment Titration Lesli Richard MD [address] [place] [address] Phone: tel: fax: Referral ID Status Reason Start Date Expiration Date Visits Re quested Visits Authorized [id number] Closed 10/27/2023 11/25/2024 1 1 Reason for Visit * Procedure (Routine) - Closed Specialty Diagnoses / Procedures Referred By Jus lin Referred To Contact Diagnoses ILD (interstitial lung disease) (HCC) Procedures Pulmonary Function Test -[facility] Adult PFT Lab- [facility]; Spirometry, Oxygen Assessment Titration Lesli Richard MD [address] [place] [address] Phone: tel: fax: Referral ID Status Reason Start Date Expiration Date Visits Re quested Visits Authorized [id number] Closed 10/27/2023 11/25/2024 1 1 Encounter Details Date Type Department Care Team (Latest Contact Info) Description 10/31/2023 9:44 AM CDT [facility] 10 [facility] Office [address] [place] [address] ILD (interstitial lung disease) ([facility]) Social History Tobacco Use Types Packs/Day [...] often do you attend chur ch or quaker services? Never 01/25/2023 Do you belong to any clubs o r organizations such as pentecostal groups, unions, fraternal or athletic groups, or [...] place to sleep or slept in a group home (including now)? No 01/25/2023 Personal Safety Answer Date Recorded Have you ever been in or are you currently in a harmful physical or emotional relationship or is someone making you feel afraid or unsafe? 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 However, the [facility] Pulmonary Function Laboratory defines hypoxemia as a PO2 <55 or a %HbO2 <89. Narrative 11/01/2023 8:16 PM CDT Table formatting from the original result was not included. [facility] Division of Pulmonary & Critical Care Medicine [address] [place] [address]; [place] [address] [facility]; [place] [address]; [phone] Pulmonary Function Laboratory Pulmonary Stress Test Simple/Oxygen [...] Work [distance (m) x body wt (kg)]: 85607 kg.m (normal >60,000kg.m) Oxygen required to maintain [...] written final report. PFT performed at:->[facility] Adult P[facility]- [facility] [...] fibrosis documented in this encounter Care Teams Line Helper Relationship Specialty Start Date End Date Naila Marroquin MD [address] [address] PCP - General 07/21/17 Janine Bañuelos, airport ramp attendant Nurse 08/02/18 John Paul Springer MD Consulting Physician Orthopedic Surgery 12/05/19 Sindy Armstrong, ALEXANDRA Registered Nurse Pulmonary Disease 03/23/22 documented as of this encounter
[2025-04-26] VITALS (8 sets, daily range): BP systolic 119–121; BP diastolic 53–69; PULSE 92–100; RESP 25–44; TEMP 37.5; O2SAT 82–100
--- NOTE | ~2025-04-26 | XR_ITS ---
Examination: XR chest 1V portable Clinical History: weakness Comparison: CT chest 08/06/2024 Technique: Portable AP Findings: Heart size normal. Chronic interstitial/fibrotic changes. No acute bony abnormality. IMPRESSION: 1. Chronic pulmonary fibrosis. 2. Superimposed edema or pneumonitis cannot be excluded. Reviewed, dictated and finalized at location R. ING MACHINE OPERATOR
--- NOTE | ~2025-04-26 | CT_ITS ---
CT HEAD NON-CONTRAST Clinical History: falls Comparison: None Technique: Unenhanced axial images skull base to vertex Coronal, sagittal reformats CT images acquired with automatic exposure control for dose reduction DLP: 1211 mGy-cm Findings: White matter changes from chronic microvascular ischemic disease. Sulci, ventricles: Unremarkable. No intracerebral hemorrhage. No evidence acute territorial infarct. No mass effect, midline shift. Bony calvarium intact. Visualized paranasal sinuses: Clear. Mastoid air cells: Clear. IMPRESSION: 1. No acute intracranial findings. Reviewed, dictated and finalized at location R. WOOD FINISHER
--- NOTE | ~2025-04-26 | CT_ITS ---
EXAMINATION: CTA chest PE abdomen pel DATE: 04/27/2025 00:05 INDICATION: Shortness of breath, hypoxia and interstitial lung disease TECHNIQUE: Computed tomography (CT) pulmonary angiogram of the chest was performed with 100 mL Omnipaque-350 intravenous contrast. Additional 3D reconstructions utilizing coronal maximum intensity projection (MIP) were performed. CT of the abdomen and pelvis was performed with intravenous contrast utilizing the same contrast bolus following a short delay. Automated exposure control and iterative reconstruction technique were employed. The dose-length product was 754.42 mGy-cm. COMPARISON: Chest CT dated 08/06/[address] abdomen and pelvis dated 01/08/2025 FINDINGS: Chest: Enlargement of the central pulmonary arteries consistent with pulmonary arterial hypertension. No pulmonary arterial filling defects to suggest pulmonary embolism. There is diffuse bilateral peripheral and lower lung predominant groundglass opacities and irregular septal line thickening without honeycombing consistent with nonspecific interstitial pneumonia (NSIP) pattern chronic initial lung disease. No pleural effusion or pneumothorax. Borderline heart size. Atherosclerotic coronary artery calcification. Thoracic aorta is normal in caliber with no dissection. No pathologically enlarged thoracic lymphadenopathy. Mild thoracic spondylosis. No change in a chronic T10 compression fracture with 20% anterior vertebral body height loss. Abdomen/pelvis: Cholecystectomy clips the gallbladder fossa. Liver, spleen, pancreas and bilateral adrenal glands are normal. There small cysts at the lower poles of both kidneys the largest on the left measuring 1 cm. Large ball of stool at rectum measuring up to 7.4 x 6.5 cm. There is mild stranding in the surrounding perirectal fat suspicious for stercoral colitis. There is additional moderate amount of stool scattered throughout the more proximal colon. The appendix is not visualized. No pericecal inflammatory change to suggest acute appendicitis. No dilated small bowel to suggest obstruction.. Marked distention of the bladder which measures 17.8 x 14.8 x 9.4 cm. The uterus is not identified and has likely been surgically resected. No free intraperitoneal gas or fluid. No pathologically enlarged abdominal or pelvic lymphadenopathy. There is calcified atherosclerosis of the aorta and many of the other arteries. Moderate lumbar spondylosis with additional chronic L2 compression fracture with 40% anterior ve rtebral body height loss. Sacral nerve root stimulator with lead in expected position extending through the left S3 neural foramen. IMPRESSION: 1. No pulmonary embolism. 2. NSIP pattern chronic initial lung disease. 3. Large ball of stool at the rectum consistent with constipation with some stranding in the surrounding perirectal fat which could be due to secondary stercoral colitis. Reviewed, dictated and finalized at location A. ES LABORER IMPRESSION: 1. No pulmonary embolism. 2. NSIP pattern chronic initial lung disease. 3. Large ball of stool at the rectum consistent with constipation with some str anding in the surrounding perirectal fat which could be due to secondary sterco ral colitis.
--- OUTSIDE RECORDS SUMMARY | 2025-04-26 21:30 | XMS_ITS | Encounter Summary ---
Author Organization [facility] Address [address] [address] Care Team Providers Care Administrative Aide Name Role Phone Debora Fitch MD Primary Care Provider Miscellaneous, Not In File Primary Care Provider Unavailable Debora Fitch MD Primary Care Provider Naila Marroquin MD Primary Care Provider [phone] Debora Fitch MD Primary Care Provider [phone] Naila Marroquin MD Primary Care Provider Debora Fitch MD Primary Care Provider [phone] Naila Marroquin MD Primary Care Provider Debora Fitch MD Primary Care Provider Naila Marroquin MD Primary Care Provider Debora Fitch MD Primary Care Provider Naila Marroquin MD Primary Care Provider Debora Fitch MD Primary Care Provider Naila Marroquin MD Primary Care Provider Debora Fitch MD Primary Care Provider [phone] Naila Marroquin MD Primary Care Provider [phone] Debora Fitch MD Primary Care Provider [phone] Naila Marroquin MD Primary Care Provider [phone] Janine Bañuelos RN Unavailable UnaJohn Paul Sawant MD Unavailable [phone] Sindy Armstrong RN Unavailable Darlene vailable Encounter Details Date Type Department Care Team (Late st Contact Info) Description 06/03/2016 Orders Only [facility] Provider, MD Sherif [address] [place] [address] Social History Tobacco Use Types Packs/Day Years Used Date Smoking Tobacco: Former Cigarettes Q uit: 05/01/1974 Alcohol Use Standard Drinks/Week Comments Yes 0 (1 standard drink = 0.6 oz pur e alcohol) Comments Unknown Sex and Gender Information Value Date Recorded Sex Assigned at Not on file Legal Sex Female 8:29 PM 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 Symptoms started 3 days ago. 05/06/2023 05/06/2023 05/16/2023 3:05 AM DIGITAL X RAY SERVICE ENGINEER COVID: Recovered Comment:Added based on recent COVID infection. 05/16/2023 05/23/2023 08/14/2023 3:05 AM C DT documented as of this encounter Care Teams Administrative Aide Relationship Specialty Start Date End Date Debora Fitch MD [address] [address] PCP - General 08/19/16 11/03/16 Miscellaneous, Not In File PCP - General 11/04/16 11/07/16 Debora Fitch MD [address] [address] PCP - General 11/08/16 11/17/16 Naila Marroquin MD [address] [place] [address] PCP - General 11/18/16 11/21/16 Debora Fitch MD [address] [address] PCP - General 11/22/16 11/22/16 Naila Marroquin MD [address] [place] [address] PCP - General 11/23/16 11/26/16 Debora Fitch MD [address] [address] PCP - General 11/27/16 01/03/17 Naila Marroquin MD [address] [place] [address] PCP - General 01/04/17 01/26/17 Debora Fitch MD [address] [facility] [place] [address] PCP - General 01/27/17 02/06/17 Naila Marroquin MD [address] [place] [address] PCP - General 02/07/17 02/13/17 Debora Fitch MD [address] [facility] [address] PCP - General 02/14/17 04/04/17 Naila Marroquin MD [address] [place] [address] PCP - General 04/05/17 04/05/17 Debora Fitch MD [address] [facility] [address] [address] PCP - General 04/06/17 05/18/17 Naila Marorquin MD [address] [place] [address] PCP - General 05/19/17 06/11/17 Debora Fitch MD [address] [address] PCP - General 06/12/17 06/14/17 Naila Marroquin MD [address] [place] [address] PCP - General 06/15/17 07/12/17 Debora Fitch MD [address] [place] [address] PCP - General 07/13/17 07/20/17 Naila Marroquin MD [address] [place] [address] PCP - General 07/21/17 Janine Bañuelos, community integration specialist Nurse 08/02/18 John Paul Springer MD Consulting Physician Orthopedic Surgery 12/05/19 Sindy Armstrong, ALEXANDRA Registered Nurse Pulmonary Disease 03/23/22 documented as of this encounter
--- OUTSIDE RECORDS SUMMARY | 2025-04-26 21:30 | XMS_ITS | Encounter Summary ---
Author Organization [facility] Address [address] [address] Care Team Providers Care News Photographer Name Role Phone Debora Fitch MD Primary Care Provider Miscellaneous, Not In File Primary Care Provider Unavailable Debora Fitch MD Primary Care Provider [phone] Naila Marroquin MD Primary Care Provider [phone] Debora Fitch MD Primary Care Provider Naila Marroquin MD Primary Care Provider Debora Fitch MD Primary Care Provider Naila Marroquin MD Primary Care Provider Debora Fitch MD Primary Care Provider Naila Marroquin MD Primary Care Provider Debora Fitch MD Primary Care Provider [phone] Naila Marroquin MD Primary Care Provider Debora Fitch MD Primary Care Provider Naila Marroquin MD Primary Care Provider Debora Fitch MD Primary Care Provider [phone] Naila Marroquin MD Primary Care Provider [phone] Debora Fitch MD Primary Care Provider [phone] Naila Marroquin MD Primary Care Provider [phone] Janine Bañuelos RN Unavailable UnaJohn Paul Sawant MD Unavailable [phone] Sindy Armstrong RN Unavailable Darlene vailable Encounter Details Date Type Department Care Team (Late st Contact Info) Description 05/19/2016 Orders Only [facility] Provider, MD Sherif [address] [place] [address] Social History Tobacco Use Types Packs/Day Years Used Date Smoking Tobacco: Former Cigarettes Q uit: 05/01/1974 Alcohol Use Standard Drinks/Week Comments Yes 0 (1 standard drink = 0.6 oz pur e alcohol) Comments Unknown Sex and Gender Information Value Date Recorded Sex Assigned at Not on file Legal Sex Female 8:29 PM INFANTRY UNIT LEADER Gender Identity Female 09/24/2021 1:08 PM CDT [...] COVID: Suspected 05/28/2021 05/28/2021 05/28/2021 3:42 PM INFANTRY UNIT LEADER COVID: Suspected 01/24/2023 01/24/2023 01/24/2023 1:28 AM CDT COVID: Suspected 01/24/2023 01/25/2023 01/25/2023 11:46 AM CDT COVID19 Comment:COVID + on home test. Symptoms started 3 days ago. 05/06/2023 05/06/2023 05/16/2023 3:05 AM INFANTRY UNIT LEADER COVID: Recovered Comment:Added based on recent COVID infection. 05/16/2023 05/23/2023 08/14/2023 3:05 AM C DT documented as of this encounter Care Teams News Photographer Relationship Specialty Start Date End Date Debora Fitch MD [address] [address] PCP - General 08/19/16 11/03/16 Miscellaneous, Not In File PCP - General 11/04/16 11/07/16 Debora Fitch MD [address] [address] PCP - General 11/08/16 11/17/16 Naila Marroquin MD [address] [place] [address] PCP - General 11/18/16 11/21/16 Debora Fitch MD [address] [address] PCP - General 11/22/16 11/22/16 Naila Marroquin MD [address] [place] [address] PCP - General 11/23/16 11/26/16 Debora Fitch MD [address] [address] PCP - General 11/27/16 01/03/17 Naila Marroquin MD [address] [place] [address] PCP - General 01/04/17 01/26/17 Debora Fitch MD [address] [facility] [place] [address] PCP - General 01/27/17 02/06/17 Naila Marroquin MD [address] [place] [address] PCP - General 02/07/17 02/13/17 Debora Fitch MD [address] [facility] [address] [address] PCP - General 02/14/17 04/04/17 Naila Marroquin MD [address] [place] [address] PCP - General 04/05/17 04/05/17 Debora Fitch MD [address] [facility] [address] [address] PCP - General 04/06/17 05/18/17 Naila Marroquin MD [address] [place] [address] PCP - General 05/19/17 06/11/17 Debora Fitch MD [address] [address] PCP - General 06/12/17 06/14/17 Naila Marroquin MD [address] [place] [address] PCP - General 06/15/17 07/12/17 Debora Fitch MD [address] [facility] [address] [place] [address] PCP - General 07/13/17 07/20/17 Naila Marroquin MD [address] [place] [address] PCP - General 07/21/17 Janine Bañuelos, manager med surg Nurse 08/02/18 John Paul Springer MD Consulting Physician Orthopedic Surgery 12/05/19 Sindy Armstrong, ALEXANDRA Registered Nurse Pulmonary Disease 03/23/22 documented as of this encounter
--- OUTSIDE RECORDS SUMMARY | 2025-04-26 21:30 | XMS_ITS | Encounter Summary ---
Author Organization [facility] Address [address] [place] [address] Phone Care Team Providers Care Wad Printing Machine Operator Name Role Phone Naila Marroquin MD Primary Care Provider [phone] Janine Bañuelos RN Unavailable Unavai John Paul David MD Unavailable [phone] Sindy Armstrong RN Unavailable Darlene vailable Encounter [...] often do you attend chur ch or sikh services? 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 [address] [place] [address] PCP - General 07/21/17 Janine Bañuelos, topographic computator Nurse 08/02/18 John Paul Springer MD Consulting Physician Orthopedic Surgery 12/05/19 Sindy Armstrong, RN Registered Nurse Pulmonary Disease 03/23/22 documented as of this encounter
--- OUTSIDE RECORDS SUMMARY | 2025-04-26 21:30 | XMS_ITS | Encounter Summary ---
Author Organization [facility] Address [address] [place] [address] Phone Care Team Providers Care A P Mechanic Name Role Phone Debora Fitch MD Primary Care Provider [phone] Naila Marroquin MD Primary Care Provider [phone] Debora Fitch MD Primary Care Provider [phone] Naila Marroquin MD Primary Care Provider [phone] Debora Fitch MD Primary Care Provider [phone] Naila Marroquin MD Primary Care Provider [phone] Debora Fitch MD Primary Care Provider [phone] Naila Marroquin MD Primary Care Provider [phone] Debora Fitch MD Primary Care Provider [phone] Naila Marroquin MD Primary Care Provider [phone] Janine Bañuelos RN Unavailable John Paul Lucas MD Unavailable [phone] Sindy Armstrong RN Unavailable Darlene vailable Encounter [...] on file Legal Sex Female 8:29 PM 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 Symptoms started 3 days ago. 05/06/2023 05/06/2023 05/16/2023 3:05 AM HEAVY DUTY CUSTODIAN COVID: Recovered Comment:Added based on recent COVID infection. 05/16/2023 05/23/2023 08/14/2023 3:05 AM C DT documented as of this encounter Care Teams A P Mechanic Relationship Specialty Start Date End Date Debora Fitch MD [address] [facility] [address] [place] [address] PCP - General 01/27/17 02/06/17 Naila Marroquin MD [address] [place] [address] PCP - General 02/07/17 02/13/17 Debora Fitch MD [address] [address] PCP - General 02/14/17 04/04/17 Naila Marroquin MD [address] [place] [address] PCP - General 04/05/17 04/05/17 Debora Fitch MD [address] [facility] [address] [address] PCP - General 04/06/17 05/18/17 Naila Marroquin MD [address] [place] [address] PCP - General 05/19/17 06/11/17 Debora Fitch MD [address] [facility] [address] [address] PCP - General 06/12/17 06/14/17 Naila Marroquin MD [address] [place] [address] PCP - General 06/15/17 07/12/17 Debora Fitch MD [address] [address] PCP - General 07/13/17 07/20/17 Naila Marroquin MD [address] [facility] [address] [place] [address] PCP - General 07/21/17 Janine Bañuelos, dental associate Nurse 08/02/18 John Paul Springer MD Consulting Physician Orthopedic Surgery 12/05/19 Sindy Armstrong, RN Registered Nurse Pulmonary Disease 03/23/22 documented as of this encounter
--- OUTSIDE RECORDS SUMMARY | 2025-04-26 21:30 | XMS_ITS | Clinical Summary ---
Author Organization [facility] [employer] Address [address] [place] [address] Care Team Providers Care Velocity Shooter Name Role Phone Noel Gomez DO Primary Care Provider [phone] Source Comments [facility] [employer],non-owned Affiliates and Associated Physician Practices is amultiple site organization consisting of ambulatory clinics and hospital sitesin [place], [place], [place] and [place]. This disclosure is being madepursuant to the Care Everywhere program and may not contain all information available regarding this patient. Last updated 18.[facility] Allergies Active Allergy Reactions Criticality Noted Date [...] Department Care Team Description 02/11/2025 Lab Requisition [facility] - Pathology Lab [address] [place] [address] Tyson Main MD Illness, unspecified from Last [...] Years Used Date Smoking Tobacco: Former Cigarettes 0 Q uit: 06/06/1974 Alcohol Use Standard Drinks/Week Comments Yes 0 (1 standard drink = 0.6 oz pur e alcohol) Comments No Sex and Gender Information Value Date Recorded Sex Assigned at Not on file Legal Sex Female 6:15 AM DIESEL DINKEY ENGINEER Gender Identity Not on file Sexual Orientation Not on file Last Filed Vital Signs Vital Sign Reading Time Taken Comments Blood Pressure 124/70 06/12/2013 1:29 PM DIESEL DINKEY ENGINEER Pulse 86 07/03/2012 4:20 PM DIESEL DINKEY ENGINEER Temperature 36.6 C (97.8 F) 07/03/2012 4:20 PM DIESEL DINKEY ENGINEER Respiratory Rate 18 07/03/2012 4:20 PM DIESEL DINKEY ENGINEER Oxygen Saturation 99% 07/03/2012 4:20 PM DIESEL DINKEY ENGINEER Inhaled Oxygen Concentration - - Weight 60.8 kg (134 lb) 06/12/2013 1:29 PM DIESEL DINKEY ENGINEER Height 157.5 cm (5' 2) 06/12/2013 1:29 PM DIESEL DINKEY ENGINEER Body Mass Index 24.51 06/12/2013 1:29 PM DIESEL DINKEY ENGINEER Plan of Treatment Health Maintenance Due Date [...] this topic Medical Devices Implanted Type Area Chandelier Maker Device Identifier Shelf Expiration Date Model / Serial / Lot Slng Lynx Mid-Ureth Implanted:Qty: 1 on 07/03/2012 by Erika Hernández MD at [facility] N/A: [email or web address] 03/31/2015 [id number] / / [id number] Procedures Procedure Name Priority Date/Time Associated Diagnosis Comments SLIDE PREP HISTOLOGY Routine 02/11/2025 12:54 PM CDT Illness, unspecified from Last 3 Months Results * SLIDE PREP HISTOLOGY (02/11/2025 12:54 PM CDT) Client Specimen ID # [id number] 03/05/2025 4:13 PM [facility] Number of Blocks Received 0 03/05/2025 4:13 PM [facility] Number of Slides 1 03/05/2025 4:13 PM [facility] Number of Control Slides 1 03/05/2025 4:13 PM [facility] Pathology/Cytolo gy ENTIRE STOMACH / Unknown 02/11/2025 12:54 PM CDT 02/11/2025 12:57 PM CDT Tyson Main MD LAB - PATHOLOGY/CYTOLOGY ORDERAB LES Final Result [facility] [address] [place] [address], [facility] [phone] from Last 3 Months Insurance MEDICARE [facility] [place] [phone] SELF PAY NO INSURANCE Member Subscriber Plan / Payer (Ef fective for All Dates) Name:Angelia Ca Navid Member ID:Not on file Relation to Subscriber:Not on file Name:ANGELIA CA Navid Subscriber ID:Not on file (Home) Address: [address] [place] [id number] Payer ID:Not on file Group ID:Not on file Type:Self Pay Address: [place], [place] MEDICARE [facility] Care Teams Velocity Shooter Relationship Specialty Start Date End Date Noel Gomez DO PCP - General Internal Medicine 07/03/12
--- OUTSIDE RECORDS SUMMARY | 2025-04-26 21:30 | XMS_ITS | Clinical Summary ---
Author Organization [facility] al Address [address] [place] [address] Care Team Providers Care Automotive Wholesale Parts Advisor Name Role Phone Naila Marroquin MD Primary Care Provider [phone] Janine Bañuelos RN Unavailable Unajose martini John Paul David MD Unavailable [phone] Sindy Armstrong RN Unavailable Darlene vailable Allergies [...] (06/12/2020): Added automatically from request for surgery [id number] Hallux valgus of left foot 11/05/2019 Overview (11/05/2019): Added automatically from request for surgery [id number] Non-allergic rhinitis 01/02/2018 Seasonal allergic rhinitis due [...] artery disease of n ative artery of [place] heart with stable angina pectoris ([facility]) 04/06/2015 Overview (08/04/2016): Coronary artery disease involving [place] coronary artery of [place] heart with angina pectoris Irregular heart rhythm 04/06/2015 Overview (08/04/2016): Irregular heart beat Hypogammaglobulinemia 11/20/2014 Overview (10/25/2019): Hypogammaglobulinemia Depression 10/21/2014 Overview (08/04/2016): Depression ILD (interstitial lung disease) 06/26/2014 Resolved Problems Problem Noted Date Diagnosed Date Resolved Date CAP (community acquired pneumonia) 01/24/2023 07/19/2023 Cough 04/18/2019 11/21/2020 Assessment & Plan (04/18/2019 2:04 PM PUBLISHING EDITOR): The patient has chronic cough is likely [...] (07/04/2018): Added automatically from request for surgery [id number] Gastroesophageal reflux dise ase with esophagitis 04/02/2018 11/21/2020 Overview (04/02/2018): Added automatically from request for surgery [id number] 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 04/02/2018 11/21/2020 Overview (04/02/2018): Added automatically from request for surgery [id number] Pain of right lower extremity 10/02/2017 11/21/2020 [...] Encounters Date Type Department Care Team Description 04/02/2025 12:30 PM PUBLISHING EDITOR Infusion [facility] [address] [place] [address] [address] [place] [address] Hypogammaglobulinemia (Primary Dx) 03/21/2025 Telephone [facility] [address] [facility] 8th [place] [address] [place] [address] Sindy Armstrong, ALEXANDRA 03/20/2025 Telephone [facility] [address] [facility] 8th [place] [address] [place] [address] Sindy Armstrong, ALEXANDRA 03/20/2025 Orders Only [facility] [address] [facility] 8th [place] [address] [place] [address] Lesli Richard MD ILD (interstitial lung disease) (HCC) (Primary Dx) 03/05/2025 12:30 PM PUBLISHING EDITOR Infusion [facility] [address] [place] [address] [address] [place] [address] Hypogammaglobulinemia (Primary Dx) 02/04/2025 12:30 PM CDT Infusion [facility] [address] [facility] Building [address] [place] [address] Hypogammaglobulinemia (Primary Dx) from Last 3 Months [...] often do you attend chur ch or worship services? Never 01/25/2023 Do you belong to [...] on file Legal Sex Female 8:29 PM PUBLISHING EDITOR Gender Identity Female 09/24/2021 1:08 PM CDT [...] Sign Reading Time Taken Comments Blood Pressure 107/68 04/02/2025 12:45 PM PUBLISHING EDITOR Pulse 76 04/02/2025 12:45 PM PUBLISHING EDITOR Temperature 36.7 C (98 F) 04/02/2025 12:45 PM PUBLISHING EDITOR Respiratory Rate 20 10/31/2023 10:21 AM CDT [...] Additional history exists Influenza Vaccine (#1) 2024 4, 03/01/2022, 03/30/2021, Additional history exists DTaP/Tdap/Td Vaccine [...] history exists Medical Devices Implanted Type Area Communications Officer Device Identifier Shelf Expiration Date Model / Serial / Lot Nerve Stimulator-Righ t Hip Description:Not active [employer] [id number] Bit 2.5mm Drill Cannulated Ao Quick Connect Color Coded - [id number] Implanted:Qty: 1 on 12/05/2019 at [facility] Left: Foot [employer] [id number] / / [employer] [id number] Screw Bone Medline Unite L18mm Od3.5mm Foot Ankle Nonlock - [id number] Implanted:Qty: 1 on 12/05/2019 by John Paul Springer MD at [facility] [employer] [id number] / / [employer] [id number] Screw Bone Medline Unite L38mm Od3.5mm Head Nonsterile - [id number] Implanted:Qty: 1 on 12/05/2019 by John Paul Springer MD at [facility] Left: Foot [employer] [id number] / / Explanted Type Area Communications Officer Device Identifier Shelf Expiration Date Model / Serial / Lot [employer] [id number] Screw Bone Medline Unite L12mm Od2.7mm Foot Ankle Nonlock - [id number] Implanted:Qty: 1 Explanted:Qty: 1 on 12/05/2019 at [facility] Left: Foot [employer] [id number] / / [employer] [id number] Screw Bone Medline Unite L14mm Od2.7mm Foot Ankle Nonlock - [id number] Explanted:Qty: 1 on 12/05/2019 at [facility] Left: Foot [employer] [id number] / / [employer] [id number] Pin Fixation Medline Unite L10mm Od1.1mm - [id number] Implanted:Qty: 2 on 12/05/2019 at [facility] Explanted:Qty: 2 on 06/23/2020 at [facility] Left: Foot [employer] [id number] / / [employer] [id number] Plate Bone Medline Unite 5 D Medium Metatarsophalangeal Left Fusion Nonsterile - [id number] Implanted:Qty: 1 on 12/05/2019 by John Paul Springer MD at [facility] Explanted:Qty: 1 on 06/23/2020 at [facility] Left: Foot [employer] [id number] / / [employer] [id number] Screw 16mm 2.7mm Bone Medline Unite Foot Ankle Lock - [id number] Implanted:Qty: 1 on 12/05/2019 by John Paul Springer MD at [facility] Explanted:Qty: 1 on 06/23/2020 at [facility] Left: Foot [employer] [id number] / / [employer] [id number] Screw 12mm 3.5mm Bone Medline Unite Foot Ankle Lock - [id number] Implanted:Qty: 1 on 12/05/2019 by John Paul Springer MD at [facility] Explanted:Qty: 1 on 06/23/2020 at [facility] Left: Foot [employer] [id number] / / [employer] [id number] Screw 18mm 3.5mm Bone Medline Unite Foot Ankle Lock - [id number] Implanted:Qty: 3 on 12/05/2019 by John Paul Springer MD at [facility] Explanted:Qty: 3 on 06/23/2020 at [facility] Left: Foot [employer] [id number] / / Procedures Procedure Name Priority Date/Time Associated Diagnosis Comments SCREENING MAMMOGRAM BILATERAL W DONY Schedule Routine, Read Routine (OP Routine) 06/01/2023 12:25 PM PUBLISHING EDITOR Screening mammogram, encounter for DEXA AXIAL SKELETON BONE DENSITY 1 OR MORE SITES Schedule Routine, Read Routine (OP Routine) 01/13/2022 1:17 PM CDT Asymptomatic menopausal state COLONOSCOPY REPORT 05/23/2017 from Last 3 Months or Most Recently Relevant to Health Maintenance Results * Screening Mammogram Bilateral W Dony (06/01/2023 12:25 PM PUBLISHING EDITOR) Anatomical Region Laterality Modality Breast Bilateral Mammography Impressions 06/01/2023 1:40 PM PUBLISHING EDITOR BI-RADS ATLAS category (overall): 2 - Benign There is no mammographic evidence of malignancy. A 1 year screening mammogram is recommended. The patient has been or will be contacted. We recommend annual screening mammography for women at average risk of breast cancer beginning at age 40, based on guidelines of the [employer] (ACR Practice Parameter for the Performance of Screening and Diagnostic Mammography) and [employer]. For women with and elevated risk of breast cancer, please refer to the ACR Practice Parameter for specific screening recommendations. The patient will be entered into a reminder system with a target due date of 1 year for her next screening exam. Narrative 06/01/2023 1:40 PM PUBLISHING EDITOR Screening Mammogram Bilateral W Dony: 06/01/23 The [...] F with given history of screening. Postmenopausal Communications Officer/Model: 1-4 All A (S/N [id number]) CLINICAL INFORMATION: Current height: 61 inches Maximum [...] Sriram Casiano M.D. MF: VICTORINO Report ID: [id number] Reading Location: [id number] Procedure Note Sriram Caisano MD - 01/13/2022 EXAM DESCRIPTION: DEXA AXIAL SKELETON BONE DENSITY 1 OR MORE SITES REASON FOR STUDY: 77 y/o year old F with given history ofscreening. Postmenopausal Communications Officer/Model: 1-4 All A (S/N [id number]) CLINICAL INFORMATION: Current height: 61 inches Maximum [...] Sriram Casiano M.D. MF: VICTORINO Report ID: [id number] Reading Location: [id number] Naila Marroquin MD IMG DXA PROCEDURES Final R esult * COLONOSCOPY REPORT (05/23/2017) Anatomical Region Laterality Modality Other Provider Scanning GI PROCEDURE ORDERABLES Final Result from Last 3 Months or Most Recently Relevant to Health Maintenance Insurance [facility] MEDICARE MEDICARE [facility] MEDICARE [facility] MEDICARE [facility] MEDICARE [facility] Advance Directives For more information, please contact: [phone] * Full Code (Latest Code Status on File) Date Activated Date Inactivated Comments 01/24/2023 1:55 PM 01/27/2023 8:39 PM * Full Code Date Activated Date Inactivated Comments 11/21/2020 12:31 AM 11/23/2020 11:07 PM * Full Code Date Activated Date Inactivated Comments 07/06/2018 9:12 AM 07/06/2018 2:51 PM * Full Code Date Activated Date Inactivated Comments 06/05/2018 9:28 AM 06/05/2018 3:17 PM Care Teams Automotive Wholesale Parts Advisor Relationship Specialty Start Date End Date Naila Marroquin MD [address] [facility] [address] [place] [address] PCP - General 07/21/17 Janine Bañuelos, desktop manager Nurse 08/02/18 John Paul Springer MD Consulting Physician Orthopedic Surgery 12/05/19 Sindy Armstrong, ALEXANDRA Registered Nurse Pulmonary Disease 03/23/22
--- OUTSIDE RECORDS SUMMARY | 2025-04-26 21:30 | XMS_ITS | Encounter Summary ---
Author Organization [facility] Address [address] [place] [address] Care Team Providers Care Wood Preserving Plant Laborer Name Role Phone Noel Gomez DO Primary Care Provider [phone] Encounter Details Date Type Department Care Team (Late st Contact Info) Description 02/11/2025 Lab Requisition [facility] - Pathology Lab [address] [place] [address] Tyson Main MD [address] [place] [address] Illness, unspecified Social History Tobacco Use Types Packs/Day Years Used Date Smoking Tobacco: Former Cigarettes 0 Q uit: 06/06/1974 Alcohol Use Standard Drinks/Week Comments Yes 0 (1 standard drink = 0.6 oz pur e alcohol) Comments No Sex and Gender Information Value Date Recorded Sex Assigned at Not on file Legal Sex Female 6:15 AM FINANCIAL SALES ASSOCIATE Gender Identity Not on file Sexual Orientation Not on file documented as of this encounter Plan of Treatment Not on file documented as of this encounter Procedures Procedure Name Priority Date/Time Associated Diagnosis Comments SLIDE PREP HISTOLOGY Routine 02/11/2025 12:54 PM CDT Illness, unspecified documented in this encounter Results * SLIDE PREP HISTOLOGY (02/11/2025 12:54 PM CDT) Client Specimen ID # [id number] 03/05/2025 4:13 PM FINANCIAL SALES ASSOCIATE U PATHOLOGY LAB Number of Blocks Received 0 03/05/2025 4:13 PM [facility] PATHOLOGY LAB Number of Slides 1 03/05/2025 4:13 PM [facility] PATH[facility] Number of Control Slides 1 03/05/2025 4:13 PM [facility] PATH[facility] LAB Pathology/Cytolo gy ENTIRE STOMACH / Unknown 02/11/2025 12:54 PM CDT 02/11/2025 12:57 PM CDT Tyson Main MD LAB - PATHOLOGY/CYTOLOGY ORDERAB LES Final Result [facility] PATHOLOGY LAB [address] [phone] documented in this encounter Visit Diagnoses Diagnosis Illness, unspecified documented in this encounter Care Teams Wood Preserving Plant Laborer Relationship Specialty Start Date End Date Noel Gomez DO PCP - General Internal Medicine 07/03/12 documented as of this encounter
--- OUTSIDE RECORDS SUMMARY | 2025-04-26 21:30 | XMS_ITS | Clinical Summary ---
Author Organization [facility] Address [address] [place] [address] Care Team Providers Care Arc Air Operator Name Role Phone Naila Marroquin MD Primary Care Provider [phone] Allergies Active Allergy Reactions Criticality Noted Date [...] patient's age to complete this topic Insurance [facility] MEDICARE Care Teams Arc Air Operator Relationship Specialty Start Date End Date Nalia Marroquin MD PCP - General 11/25/16
--- OUTSIDE RECORDS SUMMARY | 2025-04-26 21:30 | XMS_ITS | Encounter Summary ---
Author Organization [facility] Address [address] [place] [address] Phone Care Team Providers Care Insurance Salesperson Name Role Phone Naila Marroquin MD Primary Care Provider [phone] Janine Bañuelos RN Unavailable Unavai oJhn Paul David MD Unavailable [phone] Sindy Armstrong RN Unavailable Dralene vailable Encounter Details Date Type Department Care [...] on file Legal Sex Female 8:29 PM HAND II THERMAL CUTTER Gender Identity Female 09/24/2021 1:08 PM CDT [...] COVID: Suspected 05/28/2021 05/28/2021 05/28/2021 3:42 PM HAND II THERMAL CUTTER COVID: Suspected 01/24/2023 01/24/2023 01/24/2023 1:28 AM CDT COVID: Suspected 01/24/2023 01/25/2023 01/25/2023 11:46 AM CDT COVID19 Comment:COVID + on home test. Symptoms started 3 days ago. 05/06/2023 05/06/2023 05/16/2023 3:05 AM HAND II THERMAL CUTTER COVID: Recovered Comment:Added based on recent COVID infection. 05/16/2023 05/23/2023 08/14/2023 3:05 AM C DT documented as of this encounter Care Teams Insurance Salesperson Relationship Specialty Start Date End Date Naila Marroquin MD [address] [facility] [address] [place] [address] PCP - General 07/21/17 Janine Bañuelos, brief writer Nurse 08/02/18 John Paul Springer MD Consulting Physician Orthopedic Surgery 12/05/19 Sindy Armstrong, RN Registered Nurse Pulmonary Disease 03/23/22 documented as of this encounter
--- OUTSIDE RECORDS SUMMARY | 2025-04-26 21:30 | XMS_ITS | Encounter Summary ---
Author Organization [facility] Address [address] [place] [address] Care Team Providers Care Water Manager Name Role Phone Naila Marroquin MD Primary Care Provider [phone] Encounter Details Date Type Department Care Team (Late st Contact Info) Description 01/11/2023 Therapy Plan [facility] Infusion Services [address] [place] [address] Naila Marroquin MD [address] [place] [address] [place] [id number] Social History Tobacco Use Types Packs/Day Years [...] unspecified documented in this encounter Care Teams Water Manager Relationship Specialty Start Date End Date Naila Marroquin MD PCP - General 11/25/16 documented as of this encounter
--- OUTSIDE RECORDS SUMMARY | 2025-04-26 21:31 | XMS_ITS | Encounter Summary ---
Author Organization [facility] Address [address] [place] [address] Phone Care Team Providers Care Plow Shaker Name Role Phone Naila Marroquin MD Primary Care Provider [phone] Janine Bañuelos RN Unavailable Unavai John Paul David MD Unavailable [phone] Sindy Armstrong RN Unavailable Darlene vailable Encounter [...] on file Legal Sex Female 8:29 PM WORKERS COMPENSATION CLAIMS SUPERVISOR Gender Identity Female 09/24/2021 1:08 PM CDT [...] COVID: Suspected 05/28/2021 05/28/2021 05/28/2021 3:42 PM WORKERS COMPENSATION CLAIMS SUPERVISOR COVID: Suspected 01/24/2023 01/24/2023 01/24/2023 1:28 AM CDT COVID: Suspected 01/24/2023 01/25/2023 01/25/2023 11:46 AM CDT COVID19 Comment:COVID + on home test. Symptoms started 3 days ago. 05/06/2023 05/06/2023 05/16/2023 3:05 AM WORKERS COMPENSATION CLAIMS SUPERVISOR COVID: Recovered Comment:Added based on recent COVID infection. 05/16/2023 05/23/2023 08/14/2023 3:05 AM C DT documented as of this encounter Care Teams Plow Shaker Relationship Specialty Start Date End Date Naila Marroquin MD [address] [place] [address] PCP - General 07/21/17 Janine Bañuelos, concrete block molder Nurse 08/02/18 John Paul Springer MD Consulting Physician Orthopedic Surgery 12/05/19 Sindy Armstrong, RN Registered Nurse Pulmonary Disease 03/23/22 documented as of this encounter
--- OUTSIDE RECORDS SUMMARY | 2025-04-26 21:31 | XMS_ITS | Continuity of Care Document ---
Author Organization [facility] [employer], [employer] Address [address] [place] [address] Care Team Providers Care Leather Cleaner Name Role Phone NAILA GUDINO Primary Care Provider Assessment Encounter Date Assessment Date Assessment LastModified by Organization Details LastModified Time 04/10/2025 04/10/2025 Patient presented for follow up. Studies ordered as below. Discussed plan with patient/careg iver, who expressed understanding . Follow up as noted below. [email or web address] Not available 04/10/2025 12:02:32 Plan of Treatment Reminders Order Date Submit Date Provider Last Modified By Organization Details Last Modified Time Details Appointments None recorded. Lab vitamin B12, serum 2024 025 [facility] [place] [facility], [address] [facility], [place], [address], 12:58:37 CMP, serum or plasma 2024 025 [facility] [place] [facility], [address], [place], [address], 5 12:58:36 CBC w/ auto diff 2024 025 [facility] [place] [facility], [address] [facility], [place], [address], 5 12:58:36 lipid panel w/ direct LDL, serum 2024 025 [facility], [address] [place], [address], 12:28:14 urinalysis , dipstick 2024 [facility], [facility], [address], [place], [address], 15:32:55 vitamin D, 25-hydroxy , total, serum 2024 [facility], [address] [facility], [place], [address], 12:28:14 Referral optometris t referral [address], [address] [place], [address], 13:16:53 Procedures None recorded. Surgeries None recorded. Imaging MAMMO, screening, digital, bilateral 2024 [facility], [address] [facility], [place], [address], 04:07:39 Medication Orders Prolia 60 mg/mL subcutaneo us syringe 2024 [facility], [address] [facility] [address], [place], [address], 13:15:22 isosorbide mononitrat e ER 30 mg tablet,ext ended release 24 hr 2024 [facility], [address] [place], [address], 13:11:11 Myrbetriq 50 mg tablet,ext ended release 2024 [facility], [address] [place], [address], 13:12:48 Patient TargetsNo targets recorded. Patient Instructions Encounter Date Encounter Id Patient Instructions Last Modified By Organization Details Last Modified Time 04/10/2025 [id number] arthritis: care instructions [email or web address] Not available 04/10/2025 13:08:41 osteoporosis: care instructions mshenouda Not available 04/10/2025 13:08:41 mammogram: about this test mshenouda Not available 04/10/2025 13:08:41 sleep apnea: car e instructions mshenouda Not available 04/10/2025 13:08:41 bladder training : care instructions mshenouda Not available 04/10/2025 13:12:24 kegel exercises: care instructions mshenouda Not available 04/10/2025 13:12:24 Stress Incontinence: Care Instructions [email or web address] Not available 04/10/2025 13:12:24 Urge Incontinence: Care Instructions [email or web address] Not available 04/10/2025 13:12:24 learning about asthma mshenouda Not available 04/10/2025 13:08:41 hypothyroidism: care instructions mshenouda Not available 04/10/2025 13:08:41 Reason for Referral Home Theater Specialist Referral for Scr eening procedure Referring Physician: Naila Gudino, Internal Medicine, Encounter Date: 04/10/2025 Results Created Date Observation Date Name Description Value Unit Range Abnormal Flag Note LastModifiedBy Organization Detail LastModifiedTime 04/10/2004/10/2025 CBC WITH AUTO- DIFFE RENTI AL WBC 8.2 10*3/ uL 3.4-10 .8 Not Available [facility] [address], , [address], 04/11/2025 12:58:36 04/10/20 25 04/10/2025 CBC WITH AUTO- DIFFE RENTI AL RBC 4.73 10*6/ uL 3.80-5 .30 Not Available [facility] [address], , [address], 04/11/2025 12:58:36 04/10/20 25 04/10/2025 CBC WITH AUTO- DIFFE RENTI AL HGB 12.5 g/dL 11.1-1 5.9 Not Available [facility] [address], , [address], 04/11/2025 12:58:36 04/10/20 25 04/10/2025 CBC WITH AUTO- DIFFE RENTI AL HCT 41.0 % 34.0-4 6.6 Not Available [facility] [address], , [address], 04/11/2025 12:58:36 04/10/20 25 04/10/2025 CBC WITH AUTO- DIFFE RENTI AL MCV 87 fL 79-97 Not Available [facility] [address], , [address], 04/11/2025 12:58:36 04/10/20 25 04/10/2025 CBC WITH AUTO- DIFFE RENTI AL MCH 26.4 pg 26.6-3 3.0 low Not Available [facility] [address], , [address], 04/11/2025 12:58:36 04/10/20 25 04/10/2025 CBC WITH AUTO- DIFFE RENTI AL MCHC 30.5 g/dL 31.5-3 5.7 low Not Available [facility] [address], , [address], 04/11/2025 12:58:36 04/10/20 25 04/10/2025 CBC WITH AUTO- DIFFE RENTI AL RDW 13.2 % 11.5-1 4.5 Not Available [facility] [address], , [address], 04/11/2025 12:58:36 04/10/20 25 04/10/2025 CBC WITH AUTO- DIFFE RENTI AL platelets 218 10*3/ uL 150-40 0 Not Available [facility] [address], , [address], 04/11/2025 12:58:36 04/10/20 25 04/10/2025 CBC WITH AUTO- DIFFE RENTI AL MPV 12 01-11 Not Available [facility] [address], , [address], 04/11/2025 12:58:36 04/10/20 25 04/10/2025 CBC WITH AUTO- DIFFE RENTI AL neutrophils 66.1 % 40.0-7 4.0 Not Available [facility] [address], , [address], 04/11/2025 12:58:36 04/10/20 25 04/10/2025 CBC WITH AUTO- DIFFE RENTI AL absolute neutrophils 5.42 10*3/ uL 1.40-7 .00 Not Available [facility] [address], , [address], 04/11/2025 12:58:36 04/10/20 25 04/10/2025 CBC WITH AUTO- DIFFE RENTI AL lymphocytes 16.5 % 14.0-4 6.0 Not Available [facility] [address], , [address], 04/11/2025 12:58:36 04/10/20 25 04/10/2025 CBC WITH AUTO- DIFFE RENTI AL absolute lymphocytes 1.35 10*3/ uL 0.70-3 .10 Not Available [facility] [address], , [address], 04/11/2025 12:58:36 04/10/20 25 04/10/2025 CBC WITH AUTO- DIFFE RENTI AL monocytes 8.0 % 4.0-12 .0 Not Available [facility] [address] [facility], , [address], 04/11/2025 12:58:36 04/10/20 25 04/10/2025 CBC WITH AUTO- DIFFE RENTI AL absolute monocytes 0.66 10*3/ uL 0.10-0 .90 Not Available [facility] [address], , [address], 04/11/2025 12:58:36 04/10/20 25 04/10/2025 CBC WITH AUTO- DIFFE RENTI AL eosinophils 8.4 % 0.0-5. 0 high Not Available [facility] [address], , [address], 04/11/2025 12:58:36 04/10/20 25 04/10/2025 CBC WITH AUTO- DIFFE RENTI AL absolute eosinophils 0.69 10*3/ uL 0.00-0 .40 high Not Available [facility] [address], , [address], 04/11/2025 12:58:36 04/10/20 25 04/10/2025 CBC WITH AUTO- DIFFE RENTI AL basophils 0.9 % 0.0-3. 0 Not Available [facility] [address], , [address], 04/11/2025 12:58:36 04/10/20 25 04/10/2025 CBC WITH AUTO- DIFFE RENTI AL absolute basophils 0.07 10*3/ uL 0.00-0 .20 Not Available [facility] [address], , [address], 04/11/2025 12:58:36 04/10/20 25 04/10/2025 CBC WITH AUTO- DIFFE RENTI AL imm. gran. 0.1 % 0.0-2. 0 Not Available [facility] [address] [facility] [address], , [address], 04/11/2025 12:58:36 04/10/20 04/10/2025 CBC WITH AUTO- DIFFE RENTI AL abs. imm. gran. 0.01 10*3/ uL 0.00-0 .10 Not Available [facility] [address] [facility] [facility] [address], , [address], 04/11/2025 12:58:36 04/10/20 25 04/10/2025 COMPR EHENS JITENDRA METAB OLIC PANEL sodium 143 mmol/ L 134-14 4 Not Available [facility] [address] [facility] [address], , [address], 04/11/2025 12:58:36 04/10/20 25 04/10/2025 COMPR EHENS JITENDRA METAB OLIC PANEL potassium 4.5 mmol/ L 3.5-5. 2 Not Available [facility] [address] [facility] [address], , [address], 04/11/2025 12:58:36 04/10/20 25 04/10/2025 COMPR EHENS JITENDRA METAB OLIC PANEL chloride 103 mmol/ L 98-107 Not Available [facility] [address] [facility] [address], , [address], 04/11/2025 12:58:36 04/10/20 25 04/10/2025 COMPR EHENS JITENDRA METAB OLIC PANEL carbon dioxide (co2) 31.0 mmol/ L 18.0-2 9.0 high Not Available [facility] [address] [facility] [address], , [address], 04/11/2025 12:58:36 04/10/20 25 04/10/2025 COMPR EHENS JITENDRA METAB OLIC PANEL glucose 95 mg/dL 65-99 Janny l Fasti n - 99 mg/dL Impai red Fasti n - 125 mg/dL Diagn ostic of Diabe magaly: => 126 mg/dL Ameri can [facility]abe magaly [facility] iatio n, 2007 Not Available [facility] [address] [facility] [address], , [address], 04/11/2025 12:58:36 04/10/20 25 04/10/2025 COMPR EHENS JITENDRA METAB OLIC PANEL urea nitrogen (BUN) 10 mg/dL 8-23 Not Available [facility] [address], , [address], 04/11/2025 12:58:36 04/10/20 25 04/10/2025 COMPR EHENS JITENDRA METAB OLIC PANEL creatinine 0.57 mg/dL 0.57-1 .00 Not Available [facility] [address], , [address], 04/11/2025 12:58:36 04/10/20 25 04/10/2025 COMPR EHENS JITENDRA METAB OLIC PANEL eGFR 93 mL/mi nute/ 1.73_ m2 >59 MDRD Study Equat ion: The calcu lated GFR is NOT appli cable for pedia tric (< 18 years old) and > 70 year old patie nts and patie nts that are NOT of stead [place] . Not Available [facility] [address], , [address], 04/11/2025 12:58:36 04/10/20 25 04/10/2025 COMPR EHENS JITENDRA METAB OLIC PANEL calcium 9.5 mg/dL 8.7-10 .3 Not Available [facility] [address], , [address], 04/11/2025 12:58:36 04/10/20 25 04/10/2025 COMPR EHENS JITENDRA METAB OLIC PANEL protein, total 7.5 gm/dL 6.4-8. 3 Not Available [facility] [address], , [address], 04/11/2025 12:58:36 04/10/20 25 04/10/2025 COMPR EHENS JITENDRA METAB OLIC PANEL albumin 4.2 gm/dL 3.5-5. 2 Not Available [facility] [address] [facility] [address], , [address], 04/11/2025 12:58:36 04/10/20 25 04/10/2025 COMPR EHENS JITENDRA METAB OLIC PANEL bilirubin, total 0.40 mg/dL 0.00-1 .20 Not Available [facility] [address] [facility] [address], , [address], 04/11/2025 12:58:36 04/10/20 25 04/10/2025 COMPR EHENS JITENDRA METAB OLIC PANEL alkaline phosphatase (ALP) 53 U/L 39-117 Not Available [facility] [address] [facility] [address], , [address], 04/11/2025 12:58:36 04/10/20 25 04/10/2025 COMPR EHENS JITENDRA METAB OLIC PANEL aspartate aminotransfe rase (AST) 22 U/L 0-32 Not Available [facility] [address] [facility] [address], , [address], 04/11/2025 12:58:36 04/10/20 25 04/10/2025 COMPR EHENS JITENDRA METAB OLIC PANEL alanine aminotransfe rase (ALT) 14 U/L 0-33 Not Available [facility] [address] [facility] [address], , [address], 04/11/2025 12:58:36 04/10/20 25 04/10/2025 COMPR EHENS JITENDRA METAB OLIC PANEL A/G ratio (calculated) 1.3 ratio 1.0-2. 7 Not Available [facility] [address] [facility] [address], , [address], 04/11/2025 12:58:36 04/10/20 25 04/10/2025 COMPR EHENS JITENDRA METAB OLIC PANEL globulin (calculated) 3.3 gm/dL 1.5-3. 8 Not Available [facility] [address], , [address], 04/11/2025 12:58:36 04/10/20 25 04/10/2025 COMPR EHENS JITENDRA METAB OLIC PANEL BUN/creatini ne ratio (calculated) 17.5 ratio 8.0-20 .0 Not Available [facility] [address] [facility] [address], , [address], 04/11/2025 12:58:36 04/10/20 25 04/10/2025 COMPR EHENS JITENDRA METAB OLIC PANEL serum index hemolysis Normal index normal Not Available [facility] [address], , [address], 04/11/2025 12:58:36 04/10/20 25 04/10/2025 LIPID PANEL W/ LDL CHOL DIREC T(CHO L TOTAL , TRIGL YCERI GABRIEL, HDL CHOL, LDL CHOL. cholesterol, total 159 mg/dL 100-19 9 Not Available [facility] [address] [facility], , [address], 04/11/2025 12:58:37 04/10/20 25 04/10/2025 LIPID PANEL W/ LDL CHOL DIREC T(CHO L TOTAL , TRIGL YCERI GABRIEL, HDL CHOL, LDL CHOL. HDL cholesterol 75 mg/dL =>40 Not Available [facility] [address] [facility] [address], , [address], 04/11/2025 12:58:37 04/10/20 25 04/10/2025 LIPID PANEL W/ LDL CHOL DIREC T(CHO L TOTAL , TRIGL YCERI GABRIEL, HDL CHOL, LDL CHOL. LDL cholesterol (direct) 71 mg/dL 0-99 Not Available [facility] [address], , [address], 04/11/2025 12:58:37 04/10/20 25 04/10/2025 LIPID PANEL W/ LDL CHOL DIREC T(CHO L TOTAL , TRIGL YCERI GABRIEL, HDL CHOL, LDL CHOL. triglyceride s 71 mg/dL 50-149 Not Available [facility] [address], , [address], 04/11/2025 12:58:37 04/10/20 25 04/10/2025 LIPID PANEL W/ LDL CHOL DIREC T(CHO L TOTAL , TRIGL YCERI GABRIEL, HDL CHOL, LDL CHOL. VLDL cholesterol (calculated) 14 mg/dL 5-40 Not Available [facility] [address], , [address], 04/11/2025 12:58:37 04/10/20 25 04/10/2025 LIPID PANEL W/ LDL CHOL DIREC T(CHO L TOTAL , TRIGL YCERI GABRIEL, HDL CHOL, LDL CHOL. chol/HDL ratio (calculated) 2.12 ratio 0.00-5 .00 Not Available [facility] [address], , [address], 04/11/2025 12:58:37 04/10/20 25 04/10/2025 LIPID PANEL W/ LDL CHOL DIREC T(CHO L TOTAL , TRIGL YCERI GABRIEL, HDL CHOL, LDL CHOL. LDL/HDL ratio (calculated) 0.95 ratio 0.00-3 .60 LDL/H DL Ratio Male Femal e 1/2 Avg. Risk 1.0 1.5 Avg. Risk 3.6 3.2 2x Avg. Risk 6.2 5.0 3x Avg. Risk 8.0 6.1 Not Available [facility] [address], , [address], 04/11/2025 12:58:37 04/10/20 25 04/10/2025 VITAM IN B12 vitamin B12 612 pg/mL 232-12 45 Not Available [facility] [address], , [address], 04/11/2025 12:58:37 04/10/20 25 04/10/2025 VITAM IN D, 25-HY DROXY TOTAL vitamin D, total 56.1 NG/mL 30.0-1 00.0 The Vitam in D Assay david watt has been updat ed to offer direc t trace abili ty to ID-LC -MS/M S Refer ence Measu remen t Proce dure along with a reduc tion in bioti n inter feren ce. Defic ient: < 30 ng/mL Insuf ficie nt: 21 - 29 ng/mL Suffi cient : 30 - 100 ng/mL Poten tial Intox icati on: > 100 ng/mL Not Available [facility] [address], , [address], 04/11/2025 12:58:38 04/10/2004/10/2025 urina lysis , dipst ick Leukocytes Negati ve Not Available [address], [place], [address], 04/10/2025 13:12:00 04/10/20 25 04/10/2025 urina lysis , dipst ick Nitrite negati ve Not Available [place] [address] [place], [place], [address], 04/10/2025 13:12:00 04/10/20 25 04/10/2025 urina lysis , dipst ick Urobilinogen .2 Not Available [place] [address], [place], [address], 04/10/2025 13:12:00 04/10/20 25 04/10/2025 urina lysis , dipst ick Protein Trace Not Available [place] [address], [place], [address], 04/10/2025 13:12:00 04/10/20 25 04/10/2025 urina lysis , dipst ick pH 5.0 Not Available [place] [address] [place], [place], [address], 04/10/2025 13:12:00 04/10/20 25 04/10/2025 urina lysis , dipst ick Blood Small Not Available [place] [address] [place], [place], [address], 04/10/2025 13:12:00 04/10/20 25 04/10/2025 urina lysis , dipst ick Specific [place] 1.015 Not Available [place] [address] [place], [place], [address], 04/10/2025 13:12:00 04/10/20 25 04/10/2025 urina lysis , dipst ick Ketone Negati ve Not Available [place] [address] [place], [place], [address], 04/10/2025 13:12:00 04/10/20 25 04/10/2025 urina lysis , dipst ick Bilirubin Negati ve Not Available [place] [address] [place], [place], [address], 04/10/2025 13:12:00 04/10/20 25 04/10/2025 urina lysis , dipst ick Glucose Negati ve Not Available [place] [address] [place], [place], [address], 04/10/2025 13:12:00 04/10/20 25 04/10/2025 urina lysis , dipst ick Appearance Cloudy Not Available [place] [address] [place], [place], [address], 04/10/2025 13:12:00 04/10/20 25 04/10/2025 urina lysis , dipst ick Color Yellow Not Available [facility], [place] [address] [place], [place], [address], 04/10/2025 13:12:00 Result Notes None recorded. Problems Name Problem SNOMED Code Status Onset Date Resolution Date Notes Provider Name and Address Organization Details Recorded Time Palpitat ions 27305394 Completed 201303/18/2018 MD Linnea [address] [place], [place], [address] , [facility] 8 18:36:47 Fibrosis of lung 49991136 Completed 201303/18/2018 MD Linnea [address], [place], [address] , [facility] 9 18:46:01 Hoarse 34881747 Completed 201403/18/2018 MD Linnea [address], [place], [address] , [facility] 8 18:41:49 Disorder of lung 12822237 Completed 201403/18/2018 Naila Gudino MD [address] [place], [place], [address] , [facility] 8 18:37:02 Depressi ve disorder 36278185 Completed 201403/18/2018 MD Linnea [address], [place], [address] , [facility] 8 18:37:35 Imaging result abnormal 391930078 Completed 201403/18/2018 MD Candace Jefferson [address] [place], [place], [address] , [facility] 8 18:36:31 Benign hyperten du 25504448 Active 2014 MD Linnea [address] [place], [place], [address] , [facility] 8 12:16:19 Recurren t major depressi ve episodes , moderate 234042371 Completed 201403/18/2018 Naila Gudino MD [address] [place], [place], [address] , [facility] 8 18:37:29 Dyslipid emia 139064963 Completed 201408/21/2019 MD Linnea [address] [place], [place], [address] , [facility] 0 12:20:51 Irregula r heart rate Active 2014 Naila Gudino MD [address] [place], [place], [address] , [facility] 8 12:16:19 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 02962142529 07 Active 2014 Naila Gudino MD [address] [place], [place], [address] , [facility] 8 12:16:19 Dyspnea on exertion 95612511 Completed 201403/18/2018 Naila Gudino MD [address] [place], [place], [address] , [facility] 8 18:43:57 Rib pain 670937656 Completed 201503/18/2018 MD Linnea [address] [place], [place], [address] , [facility] 8 18:40:21 Chronic obstruct jitendra pulmonar y disease 49884836 Completed 201503/18/2018 Naila Gudino MD [address] [place], [place], [address] , [facility] 8 18:40:06 Gastroes ophageal reflux disease 851994141 Active 2015 Naila Gudino MD [address] [place], [place], [address] , [facility] 8 12:16:19 Knee pain Completed 201503/18/2018 Naila Gudino MD [address] [place], [place], [address] , [facility] 8 18:40:24 Palpitat ions - rapid 255830790 Completed 201603/18/2018 MD Linnea [address] [place], [place], [address] , [facility] 8 18:40:17 Dizzines s 672975811 Completed 201603/18/2018 Naila Gudino MD [address] [place], [place], [address] , [facility] 8 18:41:33 Low blood pressure 62497258 Active 2016 Naila Gudino MD [address] [place], [place], [address] , [facility] 8 12:16:19 Tenderne ss of right upper quadrant of abdomen 759826126 Completed 201603/18/2018 Naila Gudino MD [address] [place], [place], [address] , [facility] 8 18:41:45 Hernia of anterior abdomina l wall 298880841 Active 2016 Naila Gudino MD [address] [place], [place], [address] , [facility] 8 12:16:19 Hypogamm aglobuli nemia 692422804 Active 2016 once a month infusion s Naila Gudino MD [address] [place], [place], [address] , [facility] 8 12:16:19 Intersti tial lung disease 176375583 Completed 201603/18/2018 Naila Gudino MD [address] [place], [place], [address] , [facility] 5 12:56:58 Neuropat hy 855803933 Active 2016 Naila Gudino MD [address] [place], [place], [address] , [facility] 5 14:06:18 Disorder of trachea 36089046 Completed 201603/18/2018 collapse d trachea Naila Gudino MD [address] [place], [place], [address] , [facility] 8 18:37:51 Hypothyr oidism 38216650 Active 2016 Naila Gudino MD [address] [place], [place], [address] , [facility] 8 12:16:19 Asthma 982439638 Active 2016 mod , persista nt Naila Gudino MD [address] [place], [place], [address] , [facility] 8 18:43:38 Mixed anxiety and depressi ve disorder 785904291 Active 2016 MD Linnea [address] [place], [place], [address] , [facility] 8 12:16:19 Hyperlip idemia 98431627 Active 2016 MD Candace Jefferson [address] [place], [place], [address] , [facility] 8 12:16:19 Diarrhea 74608773 Completed 201603/18/2018 MD Candace Jefferson [address] [place], [place], [address] , [facility] 8 18:44:01 Obstruct jitendra sleep apnea syndrome 34721333 Active 2017 mild on sleep study 10/2016 MD Candace Jefferson [address], [place], [address] , [facility] 8 12:16:19 Atrophic gastriti s 96076231 Active 2017 autoimmu ne , on GI note 08/15/17 MD Candace Jefferson [address], [place], [address] , [facility] 8 18:08:52 Darby' s esophagu s 114021265 Active 2017 MD Linnea Jefferson[address], [place], [address] , [facility] 8 17:03:05 Vitamin D deficien cy 31186680 Active 2017 MD Candace Jefferson [address], [place], [address] , [facility] 8 17:05:04 Vitamin B12 deficien cy (non anemic) 80108637 Active 2017 MD Candace Jefferson [address], [place], [address] , [facility] 8 17:05:37 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 per pulm notes 03/13/18 MD Candace Jefferson [address], [place], [address] , [facility] 8 18:38:20 Vocal cord dysfunct ion 558422181 Active 2017 per pulm 03/13/18 MD Candace Jefferson [address], [place], [address] , [facility] 8 18:38:45 Bipolar disorder 31317867 Active 2017 MD Candace Jefferson [address], [place], [address] , [facility] 8 18:39:15 Nonspeci fic intersti tial pneumoni tis 485793404 Active 2017 Mild per pulm 03/13/18 MD Linnea Jefferson[address], [place], [address] , [facility] 8 18:43:07 Body mass index 20-24 - normal 250457475 Active 2018 Kirstie Dusty hunter, [facility] 9 11:20:57 Steatoti c liver disease 872786136 [address] abd 01/22/19 MD Candace Jefferson [address], [place], [address] , [facility] 9 18:45:36 Fibrosis of lung 67948661 Active [address] abd 01/22/19 MD Candace Jefferson [address], [place], [address] , [facility] 9 18:46:01 Finding of pancreas 010004509 Active [address] abd 01/22/19 MD Candace Jefferson [address], [place], [address] , [facility] 9 18:47:25 Neoplasm of pancreas 592564031 Active 2018 MD Candace Jefferson [address], [place], [address] , [facility] 9 13:37:53 Osteoart hritis 424054277 Active 2019 MD Candace Jefferson [address], [place], [address] , [facility] 0 12:21:55 Osteopen ia 561912893 Active 2020 MD Candace Jefferson [address], [place], [address] , [facility] 1 15:37:19 Osteoart hritis of right knee joint 58289453213 9100 Active 2020 MD Candace Jefferson [address], [place], [address] , [facility] 1 12:31:27 Cyst of skin 511939227 Active 2021 MD Candace Jefferson [address], [place], [address] , [facility] 2 13:37:48 Mixed hyperlip idemia 851321311 Active 2021 MD Candace Jefferson [address], [place], [address] , [facility] 2 15:07:19 Menopaus e Active 2021 MD Candace Jefferson [address], [place], [address] , [facility] 2 12:55:48 Coronary arterios clerosis 72299779 Active 2022 MD Candace Jefferson [address], [place], [address] , [facility] 3 13:08:33 Low back pain 224328839 Active 2022 MD Candace Jefferson [address], [place], [address] , [facility] 3 13:14:18 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 92182789121 9106 Active 2022 MD Candace Jefferson [address], [place], [address] , [facility] 3 21:22:43 Compress ion fracture of thoracic vertebra 75013592107 04 Active 2022 MD Candace Jefferson [address], [place], , [facility] 3 11:27:50 Compress ion fracture of lumbar spine 374557653 Active 2022 MD Candace Jefferson [address], [place], [address] , [facility] 3 11:27:51 Cyst of kidney 291239643 Active 2022 MD Candace Jefferson [address], [place], [address] , [facility] 3 11:35:26 Osteopor osis 04308870 Active 2022 MD Candace Jefferson [address], [place], [address] , [facility] 3 17:21:54 Chronic hypotens ion 17192340 Active 2022 MD Candace Jefferson [address], [place], [address] , [facility] 3 17:13:39 History of SARS-CoV -2 52933652718 5961074 Active 2023 MD Candace Jefferson [address], [place], [address] , [facility] 4 13:46:36 Gastroes ophageal reflux disease without esophagi tis 753345898 Active 2023 MD Candace Jefferson [address], [place], [address] , [facility] 4 17:52:36 Intersti tial lung disease 723138260 Active 2024 MD Candace Jefferson [address], [place], [address] , [facility] 5 12:56:58 Chronic constipa tion 462997374 Active 2024 MD Candace Jefferson [address], [place], [address] , [facility] 5 13:05:35 Liver enzymes level above referenc e range 732877065 Active 2024 MD Candace Jefferson [facility] [address], [place], [address] , [facility] 5 00:09:31 Fracture of tenth thoracic vertebra 107884038 Active 2024 MD Candace Jefferson [facility] [address], [place], [address] , [facility] 5 14:00:36 Long-ter m current use of drug therapy 357019001 Active 2024 MD Candace Jefferson [facility] [address], [place], [address] , [facility] 11:56:25 Mixed urinary incontin ence 726848122 Active 2024 MD Candace Jefferson [facility] [address], [place], [address] , [facility] 13:11:54 Problem Notes None recorded. Procedures Surgical History Date Name Laterality Status Provider Name and Address Organization Details Recorded Time 023 Colonoscopy completed MD Candace Jefferson [facility] [address], [place], [address], [facility] 10/23/2022 18:50:41 018 Cystourethroscopy completed MD Candace Jefferson [facility] [address], [place], [address], [facility] 09/29/2017 12:09:21 018 Date of Last Mammogram completed Karly Sandoval [facility] 11/09/2017 16:32:33 018 Date of Last Colonoscopy completed Michelle Varela [facility] 11/25/2020 12:15:28 018 Colonoscopy completed MD Candace Jefferson [facility] [address], [place], [address], [facility] 08/28/2017 17:10:59 975 Total Hysterectomy completed Florentin Jose [facility] 11/07/2016 11:21:31 Cholecystectomy completed CLAUDIA BOOTH [facility] 11/07/2016 11:14:45 Imaging Results None recorded. Procedure Notes None recorded. Medical Equipment None Reported. Allergies Allergen ID Allergen Name Allergen Category Reaction Reaction Severity Criticality Documentation Date Start Date Code Code System Note Provider Name and Address Organization Details Recorded Time 73177 doxycycli ne Not available nausea Not available Not available 08/24/2024 3640 RxNorm Naila Gudino MD [address], [place], [address], [facility] 5 20:26:14 51368 benzonata te medicatio n dyspnea rash Not available Not available high 10/11/20242017 81018 RxNorm Breat anne-marie Diffi culty unrec ogniz ed react ion (text : Nause a & Vomit ing, code: 67590 000) (from exter nal sourc e) Not Available [employer] - External Data Service - prod 5 03:09:29 87660 hydrocodo ne Not available other Not available low 10/11/20242019 5489 RxNorm caus es littl e blood spots under my skin Not Available [facility] - External Data Service - prod 5 03:09:29 22896 nitrofura ntoin, macrocrys tals / nitrofura ntoin, monohydra te medicatio n anaphylax is Not available high 10/11/20242020 40412 2 RxNorm Not Available [facility] - External Data Service - prod 5 03:09:29 5800 codeine medicatio n Not available Not available Not available 11/07/20162012 2670 RxNorm Other react ions and sever ities : 'Shor tness of breat h - Sever e', and 'Naus ea And Vomit ing - Sever e'. Naila Gudino MD [address], [place], [address], [facility] 8 12:12:02 5801 Macrobid medicatio n anaphylax is severe Not available 11/07/2016 40033 1 RxNorm resp distr ess Florentin Jose [facility], [facility] 7 11:17:38 6980 nitrofura ntoin medicatio n Not available Not available Not available 10/05/20172012 7454 RxNorm Naila Gudino MD [address], [place], [address], [facility] 8 12:12:02 7260 Tessalon Perlanusha medicatio n rash Not available Not available 11/09/2017 82416 4 RxNorm MD Linnea Jefferson[address], [place], [address], [facility] 8 17:00:04 Medications Name Sig Start Date [...] Available Not Available cetirizine 10 mg tablet TAKE 1 TABLET BY MOUTH ONCE DAILY 2024 active Not Available Not Available Not Avai lable oxybutynin chloride ER 10 mg tablet,exte nded release 24 hr 11/12 completed Not Available Not Available Not Available azithromyci n 250 mg tablet TAKE 2 TABLETS (500 MG) BY ORAL ROUTE ONCE DAILY FOR 1 DAY THEN 1 TABLET (250 MG) BY ORAL ROUTE ONCE DAILY FOR 4 DAYS 2024 active Not Available Not Available Not Avai lable ibuprofen 800 mg tablet 03/21 completed Not [...] 1 tablet every day by oral route. 2024 active Not Available Not Available Not Avai lable sertraline 100 mg tablet TAKE 1 TABLET [...] Available aspirin 81 mg tablet,pamela yed release TAKE 1 TABLET BY MOUTH AT BEDTIME 2024 active Not Available Not Available Not Avai lable tramadol 50 mg tablet TAKE 1 TABLET [...] pantoprazol e 20 mg tablet,pamela yed release TAKE 1 TABLET BY MOUTH ONCE DAILY 2024 active Not Available Not Available Not Avai lable levothyroxi ne 75 mcg tablet TAKE 1 TABLET BY MOUTH ONCE DAILY 01/09 completed Not Available Not Available Not Available ciclopirox 8 % topical solution APPLY TO AFFECTED AREA ONCE DAILY PREFERABL Y AT BEDTIME OR 8 HOURS BEFORE WASHING 04/10 completed Not Available Not Available Not Available levothyroxi ne 100 mcg tablet TAKE 1 TABLET BY MOUTH ONCE DAILY 2024 active Not Available Not Available Not Avai lable isosorbide mononitrate ER 60 mg tablet,exte nded release 24 hr TAKE 1 TABLET BY MOUTH ONCE DAILY [...] 5 times a day by nasal route. 04/10 completed Not Available Not Available Not Available famotidine 20 mg tablet TAKE 1 TABLET BY MOUTH AT BEDTIME 2024 active Not Available Not Available Not Avai lable baclofen 10 mg tablet TAKE 1 TABLET [...] solution INJCET 1ML SUB-Q EVERY 4 WEEKS 2024 active Not Available Not Available Not Avai lable oseltamivir 75 mg capsule Take 1 capsule [...] 1 CAPSULE BY MOUTH EVERY 2 WEEKS 2024 active Not Available Not Available Not Avai lable Nasonex 50 mcg/actuati on [place] 2 sprays every day by intranasa l [...] t Available hydroxyzine HCl 10 mg tablet TAKE 1 TABLET BY MOUTH AT BEDTIME 04/10 completed Not Available Not Available Not Available cefdinir 300 mg capsule TAKE 1 CAPSULE BY MOUTH EVERY 12 HOURS 03/02 completed Not Available Not Available Not Available fluticasone propionate 50 mcg/actuati on nasal spray,suspe nsion INSTILL 1 SPRAY IN EACH NOSTRIL DAILY PRN 2024 active Not Available Not Available Not Avai lable sertraline 50 mg tablet TAKE 1 TABLET [...] TAKE 1 TABLET BY MOUTH ONCE DAILY 2024 active Not Available Not Available Not Avai lable Premarin 0.625 mg/gram vaginal cream Insert 0.5 applicato rsful twice a week by vaginal route. 02/12 completed Not Available Not Available Not Available rosuvastati n 40 mg tablet TAKE 1 TABLET BY MOUTH ONCE DAILY 2024 active Not Available Not Available Not Avai lable topiramate 50 mg tablet TAKE 2 TABLETS BY MOUTH TWICE DAILY 02/12 completed Not Available Not Available Not Available mirtazapine 7.5 mg tablet 06/04 completed Not Available Not Available Not Available Mucinex DM 30 mg-600 mg tablet,exte nded release 12 hr Take 1 tablet every 12 hours by oral route. 2024 active Not Available Not Available Not Avai lable BD Integra Syringe 3 mL 25 gauge x 5/8 04/10 completed Not Available Not Available Not Available Boostrix Tdap 2.5 Lf unit-8 mcg-5 Lf/0.5 mL intramuscul ar suspension 03/21 completed Not Available Not Available Not Available pregabalin 50 mg capsule TAKE 1 CAPSULE BY MOUTH AT 8AM-NOON- 8PM 09/07 completed Not Available Not Available Not Available pregabalin 75 mg capsule TAKE 1 CAPSULE BY MOUTH TWICE DAILY 2024 active Not Available Not Available Not Avai lable pregabalin 150 mg capsule TAKE 1 CAPSULE BY MOUTH AT BEDTIME 2024 active Not Available Not Available Not Avai lable zolpidem ER 6.25 mg tablet,exte nded release,mul [...] by subcutane ous route for 180 days. 2024 active Not Available Not Available Not Avai lable cyanocobala min (vit B-12) 5,[address] 1 tablet every day by sublingua l route. 11/15 completed Not Available Not Available Not Available Myrbetriq 50 mg tablet,exte nded release Take 1 tablet every day by oral route. 2024 active Not Available Not Available Not Avai lable Linzess 145 mcg capsule Take 1 capsule every day by oral route. active Not Available Not Available No t Available Stimulant Laxative Plus 8.6 mg-50 mg tablet TAKE 2 TABLETS BY MOUTH AT BEDTIME 2024 active Not Available Not Available Not Avai lable Nasacort 55 mcg nasal spray aerosol [place] 2 sprays every day by intranasa l [...] Available Not Available Not Available Fluzone High-Dose (PF) 180 mcg/0.5 mL intramuscul ar syringe PHARMACIS T ADMINISTE RED IMMUNIZAT ION ADMINISTE RED AT TIME OF DISPENSIN G 10/22 completed Not Available Not Available Not Available Caplyta 42 mg capsule TAKE 1 CAPSULE BY MOUTH AT BEDTIME 02/12 completed Not Available Not Available Not Available Fluzone High-Dose Quad (PF) 240 mcg/0.7 mL IM syringe PHARMACIS [...] Not Available Not Available Vitals Date Recorded Systolic And Diastolic Provider Name and Address Organization Details Last Updated DateTime 04/10/2025 105/57 mm[Hg] Naila Gudino MD [address] [facility] [address], [place], [address], [facility] 04/10/2025 12:55:32 Date Recorded Body mass index (BMI) Body weight Body temperature Heart rate Respiratory rate Provider Name and Address Organization Details Last Updated DateTime 04/10/2025 22.5 kg/m2 23223.8 6 g 98.7 [degF] 98 /min 18 /min Sheryl Gipson [facility] 12:03:20 Date Recorded Body height Provider Name an d Address Organization Details Last Updated DateTime 04/10/2025 157.48 cm Soumya Marina [facility] 04/10/2025 11:56:10 Social History Question Answer Notes LastModified by Organizat ion Details LastModified Time Tobacco Smoking Status Former Smoker CLAUDIA ROLANDTUNG [facility] 11/07/2016 11:14:10 What Is Your Level Of [...] Deaf In One Or Both Ears? No [email or web address] Information not available 11/07/2016 High Number Of Sexual Partners No Information not available 05/26/2020 History Of Inconsistent/no Condom Use No Information not available 05/26/2020 Legally Blind In One Or Both Eyes? No [email or web address] Information no t available 11/07/2016 Live Alone Or With Others? With Others [email or web address] Information not available 11/07/2016 Marital Status [email or web address] Informatio n not available 11/07/2016 What Was [...] Many Years Have You Smoked Tobacco? 10 [email or web address] Information not available 11/07/2016 Have You Used IV Drugs? No Information not available 05/26/2020 Sex: Unknown Functional Status Question Answer Note LastModified by Organizat ion Details LastModified Time What is your level of alcohol consumption? Occasional [email or web address] Information not available 11/07/2016 Are you currently employed? No [email or web address] Information not available 11/07/2016 Are you able to care for yourself independently? Yes [email or web address] Information not available 11/07/2016 What is your occupation? retired [email or web address] Information not available 11/07/2016 Mental Status None [...] PF 6 completed Not Available [facility] 08/07/2022 15:45:03 Influenza, high-dose, trivalent, PF 8 completed Not Available [facility] 08/07/2022 15:45:03 Pneumococcal conjugate PCV 13 8 completed Not Available [facility] 08/07/2022 15:45:03 Tdap 9 completed Not Available [facility] 08/07/2022 15:45:03 zoster live 9 completed Not Available [facility] 08/07/2022 15:45:03 Influenza, split virus, trivalent, preservative 9 completed Not Available [facility] 08/07/2022 15:45:03 zoster recombinant 9 completed Not Available [facility] 08/07/2022 15:45:03 Influenza, split virus, quadrivalent, preservative 0 completed Not Available [facility] 08/07/2022 15:45:03 COVID-19, mRNA, LNP-S, PF, 100 mcg/0.5mL dose or 50 mcg/0.25mL dose 1 completed Not Available [facility] 08/07/2022 15:45:03 Influenza, split virus, quadrivalent, preservative 1 completed Not Available [facility] 08/07/2022 15:45:03 influenza, unspecified formulation 2 completed Not Available [facility] 08/07/2022 15:45:03 Influenza, high-dose, quadrivalent, PF 3 completed Sary Jose Rafael [facility] 02/22/2023 12:08:40 Influenza, adjuvanted, trivalent, PF 4 completed MD Candace Jefferson [facility] [address], [place], [address], [facility] 12/20/2023 19:03:42 influenza, unspecified formulation 4 completed MD Candace Jefferson [facility] [address], [place], [address], [facility] 06/04/2024 11:12:38 influenza, unspecified formulation 5 completed MD Candace Jefferson [facility] [address], [place], [address], [facility] 04/10/2025 13:04:14 Pneumococcal conjugate PCV 13 6 completed Not Available [facility] 08/07/2022 15:45:03 Influenza, split virus, quadrivalent, preservative 6 completed Not Available [facility] 08/07/2022 15:45:03 Influenza, high-dose, trivalent, PF 7 completed Not Available [facility] 08/07/2022 15:45:03 pneumococcal polysaccharide PPV23 7 completed Not Available [facility] 08/07/2022 15:45:03 Past Encounters Encounter ID Performer Location Encounter Start Date Encounter Closed Date Diagnosis/Indication Diagnosis SNOMED-CT Code Diagnosis ICD10 Code Diagnosis IMO Codes Diagnosis Note [id number] Naila Gudino MD [facility], [address] [place] [address] [place] [address] 04/10/2025 11:07:19 04/10/2025 13:16:53 Chronic hypotension 05321114 I95.89 - good control- last ophth 03/2023- BP 2 weeks- last EKG 05/13/24 Coronary arteriosclerosis 89948473 I25.10 last stress test 11/2021 Mixed hyperlipidemia 267 886004 E78.2 - last LDL 10/11/24 Hypothyroidism 04391459 E03.9 - last TSH 01/09/25 Pruritic rash 55021526 L 28.2 - stop hydroxyzin e Osteoporosis 41175087 M8 1.0 - last DEXA 02/24/25 osteopenia with compressio n Fx Vitamin D deficiency 347 75341 E55.9 - last level 10/11/24 Vitamin B1 2 deficiency (non anemic) 88385239 E53.8 - last level 10/11/24 Body mass index 20-24 - normal 524003478 Z68.23 - education- ensure QD Gastroesop hageal reflux disease without esophagitis 051207778 K21.9 - stable- EGD 02/05/25 Osteoarthritis 336079754 M19.90 - stable Asthma 261277986 J45.90 9 - sees pulm every 6 months ,- last PFT 01/10/25 Obstructiv e sleep apnea syndrome 97619413 G47.33 - good compliance Screening procedure 2012 5006 Z13.9 620641 Screening mammography 24 273622 Z12.31 3789213736 per pt had mammogram 06/01/2023 Screening for malignant neoplasm of cervix 167165634 Z12.4 706079 per pt had [employer] ex 06/2021 Screening for malignant neoplasm of colon 476331423 Z12.11 186986 - last C scope 05/23/17 Immunization due 4273642 08 Z23 0975449 - per pt had flu shot - up to date- decline RSV Mixed urin matty incontinence 217454051 N39.46 075927 Health Concerns Section Related Observation LastModified by Organization Detai ls LastModified Time None Recorded Concern Status LastModified by Organization Details LastModified Time None Recorded Payers Encounter Date Sequence Insurance Name Policy Number Policy Cruz Covered Member ID Cruz Member ID Guarantor Name 04/10/2025 1 [place] Angelia Malone [id number] Angelia Ca 04/10/2025 2 [employer] [place] [employer] [place] [id number] Angelia Ca Notes Date Note Type Note Provider Name and Address Organization Details Recorded Time 04/10/2025 text/html Hypertension F/UReported by PatientHPIFor medications, patient reportstaking medications as directedandno side effects from medication. For lifestyle, patient reportsregular exercise,limiting/av oiding salt, andcompliant with low salt diet. For associated symptoms, patient reportsno dizziness,no lightheadedness,no chest pain,no shortness of breath,no palpitations,no edema,no calf pain with exertion, andno headache. Naila Gudino MD [address] [facility] [address], [place], [address], [facility] 04/10/2025 13:12:48 OBGyn Episode No OBEpisode recorded.
--- OUTSIDE RECORDS SUMMARY | 2025-04-26 21:31 | XMS_ITS | Data Portability ---
Author Organization [facility] [employer] [facility], [employer] Address [address] [facility] [address] [place] [address] Care Team Providers Care Premium Auditor Name Role Phone NAILA GUDINO Primary Care Provider [phone] Assessment Encounter Date Assessment Date Assessment LastModified by Organization Details LastModified Time 05/13/2024 05/13/2024 Patient presented for follow up. [...] as noted below. Not available 01/09/2025 11:05:20 04/10/2025 04/10/2025 Patient presented for follow up. Studies ordered as below. Discussed plan with patient/careg iver, who expressed understanding . Follow up as noted below. Not available 04/10/2025 12:02:32 Plan of Treatment Reminders Order Date Submit Date Provider Last Modified By Organization Details Last Modified Time Details Appointments None recorded. Lab vitamin B12, serum 2024 025 [facility], [address], [place], [address], 5 12:58:37 CMP, serum or plasma 2024 025 [facility], [address], [place], [address], 5 12:58:36 CBC w/ auto diff 2024 025 [facility], [address], [place], [address], 5 12:58:36 lipid panel w/ direct LDL, serum 2024 025 [facility], [address], [place], [address], 5 12:28:14 urinalysis , dipstick 2024 025 [facility], [address] , [place] [address], [place], [address], 15:32:55 vitamin D, 25-hydroxy , total, serum 2024 025 [facility], [address], [place], [address], 5 12:28:14 HbA1c (hemoglobi n A1c), blood 2024 025 [facility], [address], [place], [address], 5 13:57:09 CMP, serum or plasma 2024 025 [facility], [address], [place], [address], 5 13:57:10 CBC w/ auto diff 2024 025 [facility], [address], [place], [address], 5 13:57:09 TSH + free T4, serum 2024 025 [facility], [address], [place], [address], 5 04:07:19 lipid panel w/ direct LDL, serum 2024 025 [facility], [address], [place], [address], 5 04:04:02 CMP, serum or plasma 2024 025 [facility], [address], [place], [address], 5 12:38:06 CBC w/ auto diff 2024 025 [facility], [address], [place], [address], 5 12:38:05 vitamin D, 25-hydroxy , total, serum 2024 025 [facility], [address], [place], [address], 5 04:04:02 TSH + free T4, serum 2024 025 [facility], [address], [place], [address], 5 04:04:02 vitamin B12 + folate, serum or blood 2024 025 [facility], [address], [place], [address], 5 04:04:02 AST/SGOT (aspartate aminotrans ferase), serum or plasma 2024 025 [facility], [address], [place], [address], 5 15:34:49 ALT (alanine aminotrans ferase), serum or plasma 2024 025 [facility], [address], [place], [address], 5 15:34:48 lipid panel w/ direct LDL, serum [address], [address], [place], [address], 5 18:54:31 CMP, serum or plasma 2024 025 [facility], [address], [place], [address], 5 16:23:13 CBC w/ auto diff 2024 025 [facility], [address], [place], [address], 5 16:23:13 HbA1c (hemoglobi n A1c), blood 2024 025 [facility], [address], [place], [address], 5 16:23:12 TSH + free T4, serum [address] [facility], [address], [place], [address], 5 18:54:30 TSH + free T4, serum [address] [facility], [address], [place], [address], 5 18:54:31 Referral optometris t referral [address], [address] [place], [address], 13:16:53 gastroente rologist referral 2024 025 MOMO Gonzalez MD, [address], [facility] [address], [place], [address], 5 15:24:02 optometris t referral 2024 025 [facility], [address] [place], [address], 14:59:34 gastroente rologist referral 2024 025 marcin Gonzalez MD, [address], [facility] [address], [place], [address], 14:59:34 gastroente rologist referral 2024 025 marcin Gonzalez MD, [address], [facility] [address], [place], [address], 14:59:35 pulmonolog ist referral 2024 025 MOMO Richard, [address], [place], [address], 13:29:15 optometris t referral [address], [address] [place], [address], 18:55:09 Procedures None recorded. Surgeries None recorded. Imaging MAMMO, screening, digital, bilateral 2024 025 [facility], [address] [place] [address], [address], 04:07:39 MAMMO, screening, digital, bilateral 2024 025 [facility], [address], [place], [address], 5 04:08:56 bone density 2024 025 [facility], [address], [place], [address], 5 04:08:56 MRI, abdomen, w/wo contrast 2024 025 [facility], [address], [place], [address], 5 04:07:19 US, liver 2024 025 [facility], [address], [place], [address], 5 04:07:19 MAMMO, screening, digital, bilateral 2024 [facility], [address], [place], [address], 5 04:06:23 bone density [address], [address], [place], [address], 18:54:31 electrocar diogram 2024 [facility], [address] [facility] [address] , [address], [place], [address], 13:35:46 Medication Orders Prolia 60 mg/mL subcutaneo us syringe 2024 025 [facility], [address] [facility], [place], [address], 13:15:22 isosorbide mononitrat e ER 30 mg tablet,ext ended release 24 hr 2024 025 [facility], [address] [place] [address], [address], 13:11:11 Myrbetriq 50 mg tablet,ext ended release 2024 025 [facility], [address] [place] [address], [address], 13:12:48 Prolia 60 mg/mL subcutaneo us syringe 2024 025 [facility], [address] [place] [address], [address], 12:07:50 ezetimibe 10 mg tablet 2024 025 [facility], [address] [place] [address], [address], 12:07:52 ciclopirox 8 % topical solution 2024 025 [facility], [address] [place] [address], [address], 13:05:05 sennosides 8.6 mg-docusat e sodium 50 mg tablet 2024 025 [facility], [address] [place] [address], [address], 13:07:31 Patient TargetsNo targets recorded. Patient Instructions Encounter Date Encounter Id Patient Instructions Last Modified By Organization Details Last Modified Time 05/13/2024 [id number] osteoporosis: care instructions mshenouda Not available 05/13/2024 13:05:52 mammogram: about this test mshenouda Not available 05/13/2024 13:05:52 interstitial rob g disease: care instructions mshenouda Not available 05/13/2024 13:05:51 bipolar disorder : care instructions mshenouda Not available 05/13/2024 13:05:52 learning about mood disorders mshenouda Not available 05/13/2024 13:05:52 hypothyroidism: care instructions mshenouda Not available 05/13/2024 13:05:53 10/11/2024 [id number] mammogram: about this test mshenouda Not available 10/11/2024 12:06:38 sleep apnea: car e instructions mshenouda Not available 10/11/2024 12:06:38 garrett's esophagus: care instructions mshenouda Not available 10/11/2024 12:06:38 hypothyroidism: care instructions mshenouda Not available 10/11/2024 12:06:38 neuropathic pain : care instructions mshenouda Not available 10/11/2024 12:06:38 01/09/2025 [id number] mammogram: about this test mshenouda Not available [...] living will mshenouda Not available 12/30 12:00:41 04/10/2025 [id number] arthritis: care instructions mshenouda Not available 04/10/2025 [...] Not available 04/10/2025 13:08:41 Reason for Referral Chief Operator Synthesis Referral for I nterstitial lung disease Referring Physician: Naila Gudino Internal Medicine, Encounter Date: 05/13/2024 Product Safety Test Engineer Referral for Kapil ign hypertension Referring Physician: Naila Gudino Internal Medicine, Encounter Date: 05/13/2024 Product Safety Test Engineer Referral for Kapil ign hypertension Referring Physician: Naila Gudino Internal Medicine, Encounter Date: 10/11/2024 Sander Machine Referral for Screening for malignant neoplasm of colon Referring Physician: Naila Gudino Internal Medicine, Encounter Date: 10/11/2024 Sander Machine Referral for Garrett's esophagus Referring Physician: Naila Gudino Internal Medicine, Encounter Date: 10/11/2024 Sander Machine Referral for Garrett's esophagus Referring Physician: Naila Gudino Internal Medicine, Encounter Date: 01/09/2025 Product Safety Test Engineer Referral for Scr eening procedure Referring Physician: Naila Gudino Internal Medicine, Encounter Date: 04/10/2025 Results Created Date Observation Date Name Description Value Unit Range Abnormal Flag Note LastModifiedBy Organization Detail LastModifiedTime 05/13/1905/13/2024 HEMOG LOBIN A1C hemoglobin A1C 5.8 % 4.8-5. 6 high COLETTE L RANGE BASED ON ALVIN COL 2 (DCCT /NGSP ): Non-D iabet ic: < 5.7% Pre-D iabet es: 5.7 - 6.4% Diabe magaly: => 6.5% GLYCE ZIGGY CONTR OL: < 7.0% Not Available [facility] [address], [place], [address], 05/14/2024 16:23:11 05/13/19 25 05/13/2024 HEMOG LOBIN A1C estimated average glucose [address] [facility] [address], [place], [address], 05/14/2024 16:23:11 05/13/19 25 05/13/2024 CBC WITH AUTO- DIFFE RENTI AL WBC 10.3 10*3/ uL 3.4-10 .8 Not Available [facility] [address], [place], [address], 05/14/2024 16:23:12 05/13/19 25 05/13/2024 CBC WITH AUTO- DIFFE RENTI AL RBC 4.94 10*6/ uL 3.80-5 .30 Not Available [facility] [address], [place], [address], 05/14/2024 16:23:12 05/13/19 25 05/13/2024 CBC WITH AUTO- DIFFE RENTI AL HGB 13.6 g/dL 11.1-1 5.9 Not Available [facility] [address], [place], [address], 05/14/2024 16:23:12 05/13/19 25 05/13/2024 CBC WITH AUTO- DIFFE RENTI AL HCT 43.1 % 34.0-4 6.6 Not Available [facility] [address], [place], [address], 05/14/2024 16:23:12 05/13/19 25 05/13/2024 CBC WITH AUTO- DIFFE RENTI AL MCV 87 fL 79-97 Not Available [facility] [address], [place], [address], 05/14/2024 16:23:12 05/13/19 25 05/13/2024 CBC WITH AUTO- DIFFE RENTI AL MCH 27.5 pg 26.6-3 3.0 Not Available [facility] [address], [place], [address], 05/14/2024 16:23:12 05/13/19 25 05/13/2024 CBC WITH AUTO- DIFFE RENTI AL MCHC 31.6 g/dL 31.5-3 5.7 Not Available [facility] [address], [place], [address], 05/14/2024 16:23:12 05/13/19 25 05/13/2024 CBC WITH AUTO- DIFFE RENTI AL RDW 13.9 % 11.5-1 4.5 Not Available [facility] [address], [place], [address], 05/14/2024 16:23:12 05/13/19 25 05/13/2024 CBC WITH AUTO- DIFFE RENTI AL platelets 260 10*3/ uL 150-40 0 Not Available [facility] [address], [place], [address], 05/14/2024 16:23:12 05/13/19 25 05/13/2024 CBC WITH AUTO- DIFFE RENTI AL MPV 12 fL 9-13 Not Available [facility] [address], [place], [address], 05/14/2024 16:23:12 05/13/19 25 05/13/2024 CBC WITH AUTO- DIFFE RENTI AL neutrophils 75.2 % 40.0-7 4.0 high Not Available [facility] [address], [place], [address], 05/14/2024 16:23:12 05/13/19 25 05/13/2024 CBC WITH AUTO- DIFFE RENTI AL absolute neutrophils 7.74 10*3/ uL 1.40-7 .00 high Not Available [facility] [address], [place], [address], 05/14/2024 16:23:12 05/13/19 25 05/13/2024 CBC WITH AUTO- DIFFE RENTI AL lymphocytes 12.6 % 14.0-4 6.0 low Not Available [facility] [address], [place], [address], 05/14/2024 16:23:12 05/13/19 25 05/13/2024 CBC WITH AUTO- DIFFE RENTI AL absolute lymphocytes 1.30 10*3/ uL 0.70-3 .10 Not Available [facility] [address], [place], [address], 05/14/2024 16:23:12 05/13/19 25 05/13/2024 CBC WITH AUTO- DIFFE RENTI AL monocytes 5.2 % 4.0-12 .0 Not Available [facility] [address], [place], [address], 05/14/2024 16:23:12 05/13/19 25 05/13/2024 CBC WITH AUTO- DIFFE RENTI AL absolute monocytes 0.53 10*3/ uL 0.10-0 .90 Not Available [facility] [address], [place], [address], 05/14/2024 16:23:12 05/13/19 25 05/13/2024 CBC WITH AUTO- DIFFE RENTI AL eosinophils 6.1 % 0.0-5. 0 high Not Available [facility] [address], [place], [address], 05/14/2024 16:23:12 05/13/19 25 05/13/2024 CBC WITH AUTO- DIFFE RENTI AL absolute eosinophils 0.63 10*3/ uL 0.00-0 .40 high Not Available [facility] [address], [place], [address], 05/14/2024 16:23:12 05/13/19 25 05/13/2024 CBC WITH AUTO- DIFFE RENTI AL basophils 0.7 % 0.0-3. 0 Not Available [facility] [address], [place], [address], 05/14/2024 16:23:12 05/13/19 25 05/13/2024 CBC WITH AUTO- DIFFE RENTI AL absolute basophils 0.07 10*3/ uL 0.00-0 .20 Not Available [facility] [address], [place], [address], 05/14/2024 16:23:12 05/13/19 25 05/13/2024 CBC WITH AUTO- DIFFE RENTI AL imm. gran. 0.2 % 0.0-2. 0 Not Available [facility] [address], [place], [address], 05/14/2024 16:23:12 05/13/19 25 05/13/2024 CBC WITH AUTO- DIFFE RENTI AL abs. imm. gran. 0.02 10*3/ uL 0.00-0 .10 Not Available [facility] [address], [place], [address], 05/14/2024 16:23:12 05/13/19 25 05/13/2024 COMPR EHENS JITENDRA METAB OLIC PANEL sodium 143 mmol/ L 134-14 4 Not Available [facility] [address], [place], [address], 05/14/2024 16:23:13 05/13/19 25 05/13/2024 COMPR EHENS JITENDRA METAB OLIC PANEL potassium 4.3 mmol/ L 3.5-5. 2 Not Available [facility] [address] [place] [address] [address], [place], [address], 05/14/2024 16:23:13 05/13/19 25 05/13/2024 COMPR EHENS JITENDRA METAB OLIC PANEL chloride 103 mmol/ L 98-107 Not Available [facility] [address] [facility] [address], [place], [address], 05/14/2024 16:23:13 05/13/19 25 05/13/2024 COMPR EHENS JITENDRA METAB OLIC PANEL carbon dioxide (co2) 30.0 mmol/ L 18.0-2 9.0 high Not Available [facility] [address], [place], [address], 05/14/2024 16:23:13 05/13/19 25 05/13/2024 COMPR EHENS JITENDRA METAB OLIC PANEL glucose 92 mg/dL 65-99 Colette l Fasti n - 99 mg/dL Impai red Fasti n - 125 mg/dL Diagn ostic of Diabe magaly: => 126 mg/dL Ameri can Diabe magaly Ass[facility] iatio n, 2008 Not Available [facility] [address], [place], [address], 05/14/2024 16:23:13 05/13/19 25 05/13/2024 COMPR EHENS JITENDRA METAB OLIC PANEL urea nitrogen (BUN) 8 mg/dL 8-23 Not Available [facility] [address], [place], [address], 05/14/2024 16:23:13 05/13/19 25 05/13/2024 COMPR EHENS JITENDRA METAB OLIC PANEL creatinine 0.57 mg/dL 0.57-1 .00 Not Available [facility] [address], [place], [address], 05/14/2024 16:23:13 05/13/19 25 05/13/2024 COMPR EHENS JITENDRA METAB OLIC PANEL eGFR 93 mL/mi nute/ 1.73_ m2 >59 MDRD Study Equat ion: The calcu lated GFR is NOT appli cable for pedia tric (< 18 years old) and > 70 year old patie nts and patie nts that are NOT of stead y state . Not Available [facility] [address], [place], [address], 05/14/2024 16:23:13 05/13/19 25 05/13/2024 COMPR EHENS JITENDRA METAB OLIC PANEL calcium 9.4 mg/dL 8.7-10 .3 Not Available [facility] [address], [place], [address], 05/14/2024 16:23:13 05/13/19 25 05/13/2024 COMPR EHENS JITENDRA METAB OLIC PANEL protein, total 7.0 gm/dL 6.4-8. 3 Not Available [facility] [address], [place], [address], 05/14/2024 16:23:13 05/13/19 25 05/13/2024 COMPR EHENS JITENDRA METAB OLIC PANEL albumin 4.2 gm/dL 3.5-5. 2 Not Available [facility] [address], [place], [address], 05/14/2024 16:23:13 05/13/19 25 05/13/2024 COMPR EHENS JITENDRA METAB OLIC PANEL bilirubin, total 0.50 mg/dL 0.00-1 .20 Not Available [facility] [address], [place], [address], 05/14/2024 16:23:13 05/13/19 25 05/13/2024 COMPR EHENS JITENDRA METAB OLIC PANEL alkaline phosphatase (ALP) 61 U/L 39-117 Not Available [facility] [address], [place], [address], 05/14/2024 16:23:13 05/13/19 25 05/13/2024 COMPR EHENS JITENDRA METAB OLIC PANEL aspartate aminotransfe rase (AST) 38 U/L 0-32 high Not Available [facility] [address], [place], [address], 05/14/2024 16:23:13 05/13/19 25 05/13/2024 COMPR EHENS JITENDRA METAB OLIC PANEL alanine aminotransfe rase (ALT) 37 U/L 0-33 high Not Available [facility] [address], [place], [address], 05/14/2024 16:23:13 05/13/19 25 05/13/2024 COMPR EHENS JITENDRA METAB OLIC PANEL A/G ratio (calculated) 1.5 ratio 1.0-2. 7 Not Available [facility] [address], [place], [address], 05/14/2024 16:23:13 05/13/19 25 05/13/2024 COMPR EHENS JITENDRA METAB OLIC PANEL globulin (calculated) 2.8 gm/dL 1.5-3. 8 Not Available [facility] [address], [place], [address], 05/14/2024 16:23:13 05/13/19 25 05/13/2024 COMPR EHENS JITENDRA METAB OLIC PANEL BUN/creatini ne ratio (calculated) 14.0 ratio 8.0-20 .0 Not Available [facility] [address], [place], [address], 05/14/2024 16:23:13 05/13/19 25 05/13/2024 COMPR EHENS JITENDRA METAB OLIC PANEL serum hemolysis index NORMAL index normal Not Available [facility] [address], [place], [address], 05/14/2024 16:23:13 05/13/19 25 05/13/2024 FREE T4 thyroxine (T4), free 0.88 NG/dL 0.82-1 .77 Not Available [facility] [address], [place], [address], 05/14/2024 16:23:14 05/13/19 25 05/13/2024 LIPID PANEL W/ LDL MJ STERO L DIREC T cholesterol, total 158 mg/dL 100-19 9 Not Available [facility] [address], [place], [address], 05/14/2024 16:23:15 05/13/19 25 05/13/2024 LIPID PANEL W/ LDL MJ STERO L DIREC T HDL cholesterol 71 mg/dL =>40 Not Available [facility] [address], [place], [address], 05/14/2024 16:23:15 05/13/19 25 05/13/2024 LIPID PANEL W/ LDL MJ STERO L DIREC T LDL cholesterol (direct) 70 mg/dL 0-[address] [facility] [address], [place], [address], 05/14/2024 16:23:15 05/13/19 25 05/13/2024 LIPID PANEL W/ LDL MJ STERO L DIREC T triglyceride s 82 mg/dL 50-[address] [facility] [address], [place], [address], 05/14/2024 16:23:15 05/13/19 25 05/13/2024 LIPID PANEL W/ LDL MJ STERO L DIREC T VLDL cholesterol (calculated) 16 mg/dL 5-40 Not Available [facility] [address], [place], [address], 05/14/2024 16:23:15 05/13/19 25 05/13/2024 LIPID PANEL W/ LDL MJ STERO L DIREC T chol/HDL ratio (calculated) 2.23 ratio 0.00-5 .00 Not Available [facility] [address], [place], [address], 05/14/2024 16:23:15 05/13/19 25 05/13/2024 LIPID PANEL W/ LDL MJ STERO L DIREC T LDL/HDL ratio (calculated) 0.99 ratio 0.00-3 .60 LDL/H DL Ratio Male Femal e 1/2 Avg. Risk 1.0 1.5 Avg. Risk 3.6 3.2 2x Avg. Risk 6.2 5.0 3x Avg. Risk 8.0 6.1 Not Available [facility] [address], [place], [address], 05/14/2024 16:23:15 05/13/19 25 05/13/2024 THYRO ID-ST IM. HORMO NE (TSH) thyroid-stim . hormone (TSH) 2.11 uIU/m L 0.27-4 .20 Not Available [facility] [address], [place], [address], 05/14/2024 16:23:15 06/04/19 25 06/04/2024 ALT (SGPT ) alanine aminotransfe rase (ALT) 23 U/L 0-33 Not Available [facility] [address], [place], [address], 06/05/2024 15:34:48 06/04/19 25 06/04/2024 ALT (SGPT ) serum hemolysis index NORMAL index normal Not Available [facility] [address], [place], [address], 06/05/2024 15:34:48 06/04/19 25 06/04/2024 AST (SGOT ) aspartate aminotransfe rase (AST) 30 U/L 0-32 Not Available [facility] [address] [place] [address] [address], [place], [address], 06/05/2024 15:34:49 06/04/1906/04/2024 AST (SGOT ) serum hemolysis index NORMAL index normal Not Available [facility] [address], [place], [address], 06/05/2024 15:34:49 10/12/1910/11/2024 CBC WITH AUTO- DIFFE RENTI AL WBC 7.7 10*3/ uL 3.4-10 .8 Not Available [facility] [address], [place], [address], 10/12/2024 12:38:05 10/12/1910/11/2024 CBC WITH AUTO- DIFFE RENTI AL RBC 4.33 10*6/ uL 3.80-5 .30 Not Available [facility] [address], [place], [address], 10/12/2024 12:38:05 10/12/1910/11/2024 CBC WITH AUTO- DIFFE RENTI AL HGB 12.2 g/dL 11.1-1 5.9 Not Available [facility] [address], [place], [address], 10/12/2024 12:38:05 10/12/1910/11/2024 CBC WITH AUTO- DIFFE RENTI AL HCT 38.2 % 34.0-4 6.6 Not Available [facility] [address], [place], [address], 10/12/2024 12:38:05 10/12/1910/11/2024 CBC WITH AUTO- DIFFE RENTI AL MCV 88 fL 79-97 Not Available [facility] [address] [facility] [address] [facility] [address], [place], [address], 10/12/2024 12:38:05 10/12/19 10/11/2024 CBC WITH AUTO- DIFFE RENTI AL MCH 28.2 pg 26.6-3 3.0 Not Available [facility] [address] [facility] [address], [place], [address], 10/12/2024 12:38:05 10/12/19 25 10/11/2024 CBC WITH AUTO- DIFFE RENTI AL MCHC 31.9 g/dL 31.5-3 5.7 Not Available [facility] [address], [place], [address], 10/12/2024 12:38:05 10/12/19 25 10/11/2024 CBC WITH AUTO- DIFFE RENTI AL RDW 14.4 % 11.5-1 4.5 Not Available [facility] [address], [place], [address], 10/12/2024 12:38:05 10/12/19 25 10/11/2024 CBC WITH AUTO- DIFFE RENTI AL platelets 220 10*3/ uL 150-40 0 Not Available [facility] [address], [place], [address], 10/12/2024 12:38:05 10/12/19 25 10/11/2024 CBC WITH AUTO- DIFFE RENTI AL MPV 12 fL 9-13 Not Available [facility] [address], [place], [address], 10/12/2024 12:38:05 10/12/19 25 10/11/2024 CBC WITH AUTO- DIFFE RENTI AL neutrophils 68.9 % 40.0-7 4.0 Not Available [facility] [address], [place], [address], 10/12/2024 12:38:05 10/12/19 25 10/11/2024 CBC WITH AUTO- DIFFE RENTI AL absolute neutrophils 5.29 10*3/ uL 1.40-7 .00 Not Available [facility] [address], [place], [address], 10/12/2024 12:38:05 10/12/19 25 10/11/2024 CBC WITH AUTO- DIFFE RENTI AL lymphocytes 17.2 % 14.0-4 6.0 Not Available [facility] [address], [place], [address], 10/12/2024 12:38:05 10/12/19 25 10/11/2024 CBC WITH AUTO- DIFFE RENTI AL absolute lymphocytes 1.32 10*3/ uL 0.70-3 .10 Not Available [facility] [address], [place], [address], 10/12/2024 12:38:05 10/12/19 25 10/11/2024 CBC WITH AUTO- DIFFE RENTI AL monocytes 7.4 % 4.0-12 .0 Not Available [facility] [address], [place], [address], 10/12/2024 12:38:05 10/12/19 25 10/11/2024 CBC WITH AUTO- DIFFE RENTI AL absolute monocytes 0.57 10*3/ uL 0.10-0 .90 Not Available [facility] [address], [place], [address], 10/12/2024 12:38:05 10/12/19 25 10/11/2024 CBC WITH AUTO- DIFFE RENTI AL eosinophils 5.5 % 0.0-5. 0 high Not Available [facility] [address], [place], [address], 10/12/2024 12:38:05 10/12/19 25 10/11/2024 CBC WITH AUTO- DIFFE RENTI AL absolute eosinophils 0.42 10*3/ uL 0.00-0 .40 high Not Available [address], [place], [address], 10/12/2024 12:38:05 10/12/19 25 10/11/2024 CBC WITH AUTO- DIFFE RENTI AL basophils 0.9 % 0.0-3. 0 Not Available [facility] [address], [place], [address], 10/12/2024 12:38:05 10/12/1910/11/2024 CBC WITH AUTO- DIFFE RENTI AL absolute basophils 0.07 10*3/ uL 0.00-0 .20 Not Available [facility] [address], [place], [address], 10/12/2024 12:38:05 10/12/19 25 10/11/2024 CBC WITH AUTO- DIFFE RENTI AL imm. gran. 0.1 % 0.0-2. 0 Not Available [facility] [address], [place], [address], 10/12/2024 12:38:05 10/12/19 25 10/11/2024 CBC WITH AUTO- DIFFE RENTI AL abs. imm. gran. 0.01 10*3/ uL 0.00-0 .10 Not Available [facility] [address], [place], [address], 10/12/2024 12:38:05 10/12/1910/11/2024 COMPR EHENS JITENDRA METAB OLIC PANEL sodium 139 mmol/ L 134-14 4 Not Available [facility] [address] [place] [address] [address], [place], [address], 10/12/2024 12:38:06 10/12/19 25 10/11/2024 COMPR EHENS JITENDRA METAB OLIC PANEL potassium 4.4 mmol/ L 3.5-5. 2 Not Available [facility] [address], [place], [address], 10/12/2024 12:38:06 10/12/19 25 10/11/2024 COMPR EHENS JITENDRA METAB OLIC PANEL chloride 101 mmol/ L 98-107 Not Available [facility] [address], [place], [address], 10/12/2024 12:38:06 10/12/19 25 10/11/2024 COMPR EHENS JITENDRA METAB OLIC PANEL carbon dioxide (co2) 30.0 mmol/ L 18.0-2 9.0 high Not Available [facility] [address] [facility] [address], [place], [address], 10/12/2024 12:38:06 10/12/19 25 10/11/2024 COMPR EHENS JITENDRA METAB OLIC PANEL glucose 90 mg/dL 65-99 Colette l Fasti n - 99 mg/dL Impai red Fasti n - 125 mg/dL Diagn ostic of Diabe magaly: => 126 mg/dL Ameri can Diabe mag[facility] iatio n, 2008 Not Available [facility] [address] [facility] [address], [place], [address], 10/12/2024 12:38:06 10/12/19 25 10/11/2024 COMPR EHENS JITENDRA METAB OLIC PANEL urea nitrogen (BUN) 7 mg/dL 8-23 low Not Available [facility] [address], [place], [address], 10/12/2024 12:38:06 10/12/19 25 10/11/2024 COMPR EHENS JITENDRA METAB OLIC PANEL creatinine 0.63 mg/dL 0.57-1 .00 Not Available [facility] [address] [facility] [address], [place], [address], 10/12/2024 12:38:06 10/12/19 25 10/11/2024 COMPR EHENS JITENDRA METAB OLIC PANEL eGFR 91 mL/mi nute/ 1.73_ m2 >59 MDRD Study Equat ion: The calcu lated GFR is NOT appli cable for pedia tric (< 18 years old) and > 70 year old patie nts and patie nts that are NOT of stead y state . Not Available [facility] [address], [place], [address], 10/12/2024 12:38:06 10/12/19 25 10/11/2024 COMPR EHENS JITENDRA METAB OLIC PANEL calcium 8.4 mg/dL 8.7-10 .3 low Not Available [facility] [address], [place], [address], 10/12/2024 12:38:06 10/12/19 25 10/11/2024 COMPR EHENS JITENDRA METAB OLIC PANEL protein, total 6.8 gm/dL 6.4-8. 3 Not Available [facility] [address], [place], [address], 10/12/2024 12:38:06 10/12/19 25 10/11/2024 COMPR EHENS JITENDRA METAB OLIC PANEL albumin 4.1 gm/dL 3.5-5. 2 Not Available [facility] [address], [place], [address], 10/12/2024 12:38:06 10/12/19 25 10/11/2024 COMPR EHENS JITENDRA METAB OLIC PANEL bilirubin, total 0.40 mg/dL 0.00-1 .20 Not Available [facility] [address], [place], [address], 10/12/2024 12:38:06 10/12/19 25 10/11/2024 COMPR EHENS JITENDRA METAB OLIC PANEL alkaline phosphatase (ALP) 45 U/L 39-117 Not Available [facility] [address], [place], [address], 10/12/2024 12:38:06 10/12/19 25 10/11/2024 COMPR EHENS JITENDRA METAB OLIC PANEL aspartate aminotransfe rase (AST) 44 U/L 0-32 high Not Available [facility] [address], [place], [address], 10/12/2024 12:38:06 10/12/19 25 10/11/2024 COMPR EHENS JITENDRA METAB OLIC PANEL alanine aminotransfe rase (ALT) 41 U/L 0-33 high Not Available [facility] [address], [place], [address], 10/12/2024 12:38:06 10/12/19 25 10/11/2024 COMPR EHENS JITENDRA METAB OLIC PANEL A/G ratio (calculated) 1.5 ratio 1.0-2. 7 Not Available [facility] [address], [place], [address], 10/12/2024 12:38:06 10/12/19 25 10/11/2024 COMPR EHENS JITENDRA METAB OLIC PANEL globulin (calculated) 2.7 gm/dL 1.5-3. 8 Not Available [facility] [address], [place], [address], 10/12/2024 12:38:06 10/12/19 25 10/11/2024 COMPR EHENS JITENDRA METAB OLIC PANEL BUN/creatini ne ratio (calculated) 11.1 ratio 8.0-20 .0 Not Available [facility] [address], [place], [address], 10/12/2024 12:38:06 10/12/19 25 10/11/2024 COMPR EHENS JITENDRA METAB OLIC PANEL serum index hemolysis NORMAL index normal Not Available [facility] [address], [place], [address], 10/12/2024 12:38:06 10/12/1910/11/2024 FREE T4 thyroxine (T4), free 0.59 NG/dL 0.82-1 .77 low Not Available [facility] [address], [place], [address], 10/12/2024 12:38:06 10/12/1910/11/2024 FOLAT E, SERUM folate 10.9 NG/mL 3.1-20 .0 REFER ENCE RANGE : Colette l: > 3.0 ng/mL Inter media te: 2.2 - 3.0 ng/mL Defic ient: < 2.2 ng/mL Not Available [facility] [address], [place], [address], 10/12/2024 12:38:07 01/10/2001/09/2025 HEMOG LOBIN A1C hemoglobin A1C 5.4 % 4.8-5. 6 COLETTE L RANGE BASED ON ALVIN COL 2 (DCCT /NGSP ): Non-D iabet ic: < 5.7% Pre-D iabet es: 5.7 - 6.4% Diabe magaly: => 6.5% GLYCE ZIGGY CONTR OL: < 7.0% Not Available [facility] [address], [place], [address], 01/10/2025 13:57:09 01/10/2001/09/2025 HEMOG LOBIN A1C estimated average glucose [address] [facility] [address], [place], [address], 01/10/2025 13:57:09 01/10/20 25 01/09/2025 CBC WITH AUTO- DIFFE RENTI AL WBC 6.4 10*3/ uL 3.4-10 .8 Not Available [facility] [address], [place], [address], 01/10/2025 13:57:09 09/11/20 25 01/09/2025 CBC WITH AUTO- DIFFE RENTI AL RBC 4.50 10*6/ uL 3.80-5 .30 Not Available [facility] [address], [place], [address], 01/10/2025 13:57:09 01/10/2001/09/2025 CBC WITH AUTO- DIFFE RENTI AL HGB 12.1 g/dL 11.1-1 5.9 Not Available [facility] [address], [place], [address], 01/10/2025 13:57:09 01/10/2001/09/2025 CBC WITH AUTO- DIFFE RENTI AL HCT 40.6 % 34.0-4 6.6 Not Available [facility] [address], [place], [address], 01/10/2025 13:57:09 01/10/2001/09/2025 CBC WITH AUTO- DIFFE RENTI AL MCV 90 fL 79-97 Not Available [facility] [address], [place], [address], 01/10/2025 13:57:09 01/10/2001/09/2025 CBC WITH AUTO- DIFFE RENTI AL MCH 26.9 pg 26.6-3 3.0 Not Available [facility] [address], [place], [address], 01/10/2025 13:57:09 01/10/2001/09/2025 CBC WITH AUTO- DIFFE RENTI AL MCHC 29.8 g/dL 31.5-3 5.7 low Not Available [facility] [address], [place], [address], 01/10/2025 13:57:09 01/10/20 25 01/09/2025 CBC WITH AUTO- DIFFE RENTI AL RDW 14.9 % 11.5-1 4.5 high Not Available [facility] [address] [facility] [address] [facility] [address], [place], [address], 01/10/2025 13:57:09 01/10/2001/09/2025 CBC WITH AUTO- DIFFE RENTI AL platelets 203 10*3/ uL 150-40 0 Not Available [facility] [address], [place], [address], 01/10/2025 13:57:09 01/10/2001/09/2025 CBC WITH AUTO- DIFFE RENTI AL MPV 12 fL 9-13 Not Available [facility] [address], [place], [address], 01/10/2025 13:57:09 01/10/2001/09/2025 CBC WITH AUTO- DIFFE RENTI AL neutrophils 69.3 % 40.0-7 4.0 Not Available [facility] [address], [place], [address], 01/10/2025 13:57:09 01/10/2001/09/2025 CBC WITH AUTO- DIFFE RENTI AL absolute neutrophils 4.45 10*3/ uL 1.40-7 .00 Not Available [facility] [address], [place], [address], 01/10/2025 13:57:09 01/10/2001/09/2025 CBC WITH AUTO- DIFFE RENTI AL lymphocytes 14.6 % 14.0-4 6.0 Not Available [facility] [address], [place], [address], 01/10/2025 13:57:01/10/2001/09/2025 CBC WITH AUTO- DIFFE RENTI AL absolute lymphocytes 0.94 10*3/ uL 0.70-3 .10 Not Available [facility] [address], [place], [address], 01/10/2025 13:57:09 01/10/20 25 01/09/2025 CBC WITH AUTO- DIFFE RENTI AL monocytes 9.2 % 4.0-12 .0 Not Available [facility] [address], [place], [address], 01/10/2025 13:57:09 01/10/20 25 01/09/2025 CBC WITH AUTO- DIFFE RENTI AL absolute monocytes 0.59 10*3/ uL 0.10-0 .90 Not Available [facility] [address], [place], [address], 01/10/2025 13:57:09 01/10/2001/09/2025 CBC WITH AUTO- DIFFE RENTI AL eosinophils 5.9 % 0.0-5. 0 high Not Available [facility] [address], [place], [address], 01/10/2025 13:57:09 01/10/20 25 01/09/2025 CBC WITH AUTO- DIFFE RENTI AL absolute eosinophils 0.38 10*3/ uL 0.00-0 .40 Not Available [facility] [address], [place], [address], 01/10/2025 13:57:09 01/10/2001/09/2025 CBC WITH AUTO- DIFFE RENTI AL basophils 0.8 % 0.0-3. 0 Not Available [facility] [address], [place], [address], 01/10/2025 13:57:01/10/2001/09/2025 CBC WITH AUTO- DIFFE RENTI AL absolute basophils 0.05 10*3/ uL 0.00-0 .20 Not Available [facility] [address], [place], [address], 01/10/2025 13:57:09 01/10/2001/09/2025 CBC WITH AUTO- DIFFE RENTI AL imm. gran. 0.2 % 0.0-2. 0 Not Available [facility] [address], [place], [address], 01/10/2025 13:57:09 01/10/20 25 01/09/2025 CBC WITH AUTO- DIFFE RENTI AL abs. imm. gran. 0.01 10*3/ uL 0.00-0 .10 Not Available [facility] [address], [place], [address], 01/10/2025 13:57:09 01/10/20 25 01/09/2025 COMPR EHENS JITENDRA METAB OLIC PANEL sodium 141 mmol/ L 134-14 4 Not Available [facility] [address], [place], [address], 01/10/2025 13:57:10 01/10/20 25 01/09/2025 COMPR EHENS JITENDRA METAB OLIC PANEL potassium 4.4 mmol/ L 3.5-5. 2 Not Available [facility] [address], [place], [address], 01/10/2025 13:57:10 01/10/20 25 01/09/2025 COMPR EHENS JITENDRA METAB OLIC PANEL chloride 103 mmol/ L 98-107 Not Available [facility] [address], [place], [address], 01/10/2025 13:57:10 01/10/20 25 01/09/2025 COMPR EHENS JITENDRA METAB OLIC PANEL carbon dioxide (co2) 28.0 mmol/ L 18.0-2 9.0 Not Available [facility] [address], [place], [address], 01/10/2025 13:57:10 01/10/20 25 01/09/2025 COMPR EHENS JITENDRA METAB OLIC PANEL glucose 63 mg/dL 65-99 low Colette l Fasti n - 99 mg/dL Impai red Fasti n - 125 mg/dL Diagn ostic of Diabe magaly: => 126 mg/dL Ameri can Diabe magaly Assoc iatio n, 2007 Not Available [facility] [address], [place], [address], 01/10/2025 13:57:10 01/10/20 25 01/09/2025 COMPR EHENS JITENDRA METAB OLIC PANEL urea nitrogen (BUN) 10 mg/dL 8-23 Not Available [facility] [address], [place], [address], 01/10/2025 13:57:10 01/10/20 25 01/09/2025 COMPR EHENS JITENDRA METAB OLIC PANEL creatinine 0.60 mg/dL 0.57-1 .00 Not Available [facility] [address], [place], [address], 01/10/2025 13:57:10 01/10/20 25 01/09/2025 COMPR EHENS JITENDRA METAB OLIC PANEL eGFR 92 mL/mi nute/ 1.73_ m2 >59 MDRD Study Equat ion: The calcu lated GFR is NOT appli cable for pedia tric (< 18 years old) and > 70 year old patie nts and patie nts that are NOT of stead y state . Not Available [facility] [address], [place], [address], 01/10/2025 13:57:10 01/10/20 25 01/09/2025 COMPR EHENS JITENDRA METAB OLIC PANEL calcium 8.8 mg/dL 8.7-10 .3 Not Available [facility] [address], [place], [address], 01/10/2025 13:57:10 01/10/20 25 01/09/2025 COMPR EHENS JITENDRA METAB OLIC PANEL protein, total 7.1 gm/dL 6.4-8. 3 Not Available [facility] [address], [place], [address], 01/10/2025 13:57:10 01/10/20 25 01/09/2025 COMPR EHENS JITENDRA METAB OLIC PANEL albumin 4.2 gm/dL 3.5-5. 2 Not Available [facility] [address], [place], [address], 01/10/2025 13:57:10 01/10/20 25 01/09/2025 COMPR EHENS JITENDRA METAB OLIC PANEL bilirubin, total 0.30 mg/dL 0.00-1 .20 Not Available [facility] [address], [place], [address], 01/10/2025 13:57:10 01/10/20 25 01/09/2025 COMPR EHENS JITENDRA METAB OLIC PANEL alkaline phosphatase (ALP) 44 U/L 39-117 Not Available [facility] [address], [place], [address], 01/10/2025 13:57:10 01/10/20 25 01/09/2025 COMPR EHENS JITENDRA METAB OLIC PANEL aspartate aminotransfe rase (AST) 28 U/L 0-32 Not Available [facility] [address], [place], [address], 01/10/2025 13:57:10 01/10/20 25 01/09/2025 COMPR EHENS JITENDRA METAB OLIC PANEL alanine aminotransfe rase (ALT) 22 U/L 0-33 Not Available [facility] [address], [place], [address], 01/10/2025 13:57:10 01/10/20 25 01/09/2025 COMPR EHENS JITENDRA METAB OLIC PANEL A/G ratio (calculated) 1.4 ratio 1.0-2. 7 Not Available [facility] [address], [place], [address], 01/10/2025 13:57:10 01/10/20 25 01/09/2025 COMPR EHENS JITENDRA METAB OLIC PANEL globulin (calculated) 2.9 gm/dL 1.5-3. 8 Not Available [facility] [address], [place], [address], 01/10/2025 13:57:10 01/10/20 25 01/09/2025 COMPR EHENS JITENDRA METAB OLIC PANEL BUN/creatini ne ratio (calculated) 16.7 ratio 8.0-20 .0 Not Available [facility] [address], [place], [address], 01/10/2025 13:57:10 01/10/20 25 01/09/2025 COMPR EHENS JITENDRA METAB OLIC PANEL serum index hemolysis NORMAL index normal Not Available [facility] [address], [place], [address], 01/10/2025 13:57:10 01/10/20 25 01/09/2025 FREE T4 thyroxine (T4), free 0.83 NG/dL 0.82-1 .77 Not Available [facility] [address], [place], [address], 01/10/2025 13:57:10 01/10/20 25 01/09/2025 THYRO ID-ST IM. HORMO NE (TSH) thyroid-stim . hormone (TSH) 13.26 uIU/m L 0.27-4 .20 high Not Available [facility] [address], [place], [address], 01/10/2025 13:57:11 01/11/20 25 01/10/2025 carli metry testi ng* Spirometry Not Available [facility], [address], [place], [address], 01/09/2025 11:53:24 04/10/20 25 04/10/2025 CBC WITH AUTO- DIFFE RENTI AL WBC 8.2 10*3/ uL 3.4-10 .8 Not Available [facility] [address], [place], [address], 04/11/2025 12:58:36 04/10/20 25 04/10/2025 CBC WITH AUTO- DIFFE RENTI AL RBC 4.73 10*6/ uL 3.80-5 .30 Not Available [facility] [address], [place], [address], 04/11/2025 12:58:36 04/10/20 25 04/10/2025 CBC WITH AUTO- DIFFE RENTI AL HGB 12.5 g/dL 11.1-1 5.9 Not Available [facility] [address], [place], [address], 04/11/2025 12:58:36 04/10/20 25 04/10/2025 CBC WITH AUTO- DIFFE RENTI AL HCT 41.0 % 34.0-4 6.6 Not Available [facility] [address], [place], [address], 04/11/2025 12:58:36 04/10/20 25 04/10/2025 CBC WITH AUTO- DIFFE RENTI AL MCV 87 fL 79-97 Not Available [facility] [address], [place], [address], 04/11/2025 12:58:36 04/10/20 25 04/10/2025 CBC WITH AUTO- DIFFE RENTI AL MCH 26.4 pg 26.6-3 3.0 low Not Available [facility] [address] [facility] [address], [place], [address], 04/11/2025 12:58:36 04/10/20 25 04/10/2025 CBC WITH AUTO- DIFFE RENTI AL MCHC 30.5 g/dL 31.5-3 5.7 low Not Available [facility] [address], [place], [address], 04/11/2025 12:58:36 04/10/20 25 04/10/2025 CBC WITH AUTO- DIFFE RENTI AL RDW 13.2 % 11.5-1 4.5 Not Available [facility] [address], [place], [address], 04/11/2025 12:58:36 04/10/20 25 04/10/2025 CBC WITH AUTO- DIFFE RENTI AL platelets 218 10*3/ uL 150-40 0 Not Available [facility] [address], [place], [address], 04/11/2025 12:58:36 04/10/20 25 04/10/2025 CBC WITH AUTO- DIFFE RENTI AL MPV 12 fL 9-13 Not Available [facility] [address], [place], [address], 04/11/2025 12:58:36 04/10/20 25 04/10/2025 CBC WITH AUTO- DIFFE RENTI AL neutrophils 66.1 % 40.0-7 4.0 Not Available [facility] [address], [place], [address], 04/11/2025 12:58:36 04/10/20 25 04/10/2025 CBC WITH AUTO- DIFFE RENTI AL absolute neutrophils 5.42 10*3/ uL 1.40-7 .00 Not Available [facility] [address], [place], [address], 04/11/2025 12:58:36 04/10/20 25 04/10/2025 CBC WITH AUTO- DIFFE RENTI AL lymphocytes 16.5 % 14.0-4 6.0 Not Available [facility] [address] [facility] [address], [place], [address], 04/11/2025 12:58:36 04/10/20 25 04/10/2025 CBC WITH AUTO- DIFFE RENTI AL absolute lymphocytes 1.35 10*3/ uL 0.70-3 .10 Not Available [facility] [address], [place], [address], 04/11/2025 12:58:36 04/10/20 25 04/10/2025 CBC WITH AUTO- DIFFE RENTI AL monocytes 8.0 % 4.0-12 .0 Not Available [facility] [address], [place], [address], 04/11/2025 12:58:36 04/10/20 25 04/10/2025 CBC WITH AUTO- DIFFE RENTI AL absolute monocytes 0.66 10*3/ uL 0.10-0 .90 Not Available [facility] [address], [place], [address], 04/11/2025 12:58:36 04/10/20 25 04/10/2025 CBC WITH AUTO- DIFFE RENTI AL eosinophils 8.4 % 0.0-5. 0 high Not Available [facility] [address], [place], [address], 04/11/2025 12:58:36 04/10/20 25 04/10/2025 CBC WITH AUTO- DIFFE RENTI AL absolute eosinophils 0.69 10*3/ uL 0.00-0 .40 high Not Available [facility] [address], [place], [address], 04/11/2025 12:58:36 04/10/20 25 04/10/2025 CBC WITH AUTO- DIFFE RENTI AL basophils 0.9 % 0.0-3. 0 Not Available [facility] [address], [place], [address], 04/11/2025 12:58:36 04/10/20 25 04/10/2025 CBC WITH AUTO- DIFFE RENTI AL absolute basophils 0.07 10*3/ uL 0.00-0 .20 Not Available [facility] [address], [place], [address], 04/11/2025 12:58:36 04/10/20 25 04/10/2025 CBC WITH AUTO- DIFFE RENTI AL imm. gran. 0.1 % 0.0-2. 0 Not Available [facility] [address], [place], [address], 04/11/2025 12:58:36 04/10/20 25 04/10/2025 CBC WITH AUTO- DIFFE RENTI AL abs. imm. gran. 0.01 10*3/ uL 0.00-0 .10 Not Available [facility] [address], [place], [address], 04/11/2025 12:58:36 04/10/20 25 04/10/2025 COMPR EHENS JITENDRA METAB OLIC PANEL sodium 143 mmol/ L 134-14 4 Not Available [facility] [address] [facility] [address], [place], [address], 04/11/2025 12:58:36 04/10/20 25 04/10/2025 COMPR EHENS JITENDRA METAB OLIC PANEL potassium 4.5 mmol/ L 3.5-5. 2 Not Available [facility] [address], [place], [address], 04/11/2025 12:58:36 04/10/20 25 04/10/2025 COMPR EHENS JITENDRA METAB OLIC PANEL chloride 103 mmol/ L 98-107 Not Available [facility] [address], [place], [address], 04/11/2025 12:58:36 04/10/20 25 04/10/2025 COMPR EHENS JITENDRA METAB OLIC PANEL carbon dioxide (co2) 31.0 mmol/ L 18.0-2 9.0 high Not Available [facility] [address] [facility] [address], [place], [address], 04/11/2025 12:58:36 04/10/20 25 04/10/2025 COMPR EHENS JITENDRA METAB OLIC PANEL glucose 95 mg/dL 65-99 Colette l Fasti n - 99 mg/dL Impai red Fasti n - 125 mg/dL Diagn ostic of Diabe magaly: => 126 mg/dL [facility], 2007 Not Available [facility] [address], [place], [address], 04/11/2025 12:58:36 04/10/20 25 04/10/2025 COMPR EHENS JITENDRA METAB OLIC PANEL urea nitrogen (BUN) 10 mg/dL 8-23 Not Available [facility] [address], [place], [address], 04/11/2025 12:58:36 04/10/20 25 04/10/2025 COMPR EHENS JITENDRA METAB OLIC PANEL creatinine 0.57 mg/dL 0.57-1 .00 Not Available [facility] [address], [place], [address], 04/11/2025 12:58:36 04/10/20 25 04/10/2025 COMPR EHENS JITENDRA METAB OLIC PANEL eGFR 93 mL/mi nute/ 1.73_ m2 >59 MDRD Study Equat ion: The calcu lated GFR is NOT appli cable for pedia tric (< 18 years old) and > 70 year old patie nts and patie nts that are NOT of stead y state . Not Available [facility] [address], [place], [address], 04/11/2025 12:58:36 04/10/20 25 04/10/2025 COMPR EHENS JITENDRA METAB OLIC PANEL calcium 9.5 mg/dL 8.7-10 .3 Not Available [facility] [address], [place], [address], 04/11/2025 12:58:36 04/10/20 25 04/10/2025 COMPR EHENS JITENDRA METAB OLIC PANEL protein, total 7.5 gm/dL 6.4-8. 3 Not Available [facility] [address], [place], [address], 04/11/2025 12:58:36 04/10/20 25 04/10/2025 COMPR EHENS JITENDRA METAB OLIC PANEL albumin 4.2 gm/dL 3.5-5. 2 Not Available [facility] [address], [place], [address], 04/11/2025 12:58:36 04/10/20 25 04/10/2025 COMPR EHENS JITENDRA METAB OLIC PANEL bilirubin, total 0.40 mg/dL 0.00-1 .20 Not Available [facility] [address], [place], [address], 04/11/2025 12:58:36 04/10/20 25 04/10/2025 COMPR EHENS JITENDRA METAB OLIC PANEL alkaline phosphatase (ALP) 53 U/L 39-117 Not Available [facility] [address], [place], [address], 04/11/2025 12:58:36 04/10/20 25 04/10/2025 COMPR EHENS JITENDRA METAB OLIC PANEL aspartate aminotransfe rase (AST) 22 U/L 0-32 Not Available [facility] [address], [place], [address], 04/11/2025 12:58:36 04/10/20 25 04/10/2025 COMPR EHENS JITENDRA METAB OLIC PANEL alanine aminotransfe rase (ALT) 14 U/L 0-33 Not Available [facility] [address], [place], [address], 04/11/2025 12:58:36 04/10/20 25 04/10/2025 COMPR EHENS JITENDRA METAB OLIC PANEL A/G ratio (calculated) 1.3 ratio 1.0-2. 7 Not Available [facility] [address], [place], [address], 04/11/2025 12:58:36 04/10/20 25 04/10/2025 COMPR EHENS JITENDRA METAB OLIC PANEL globulin (calculated) 3.3 gm/dL 1.5-3. 8 Not Available [facility] [address], [place], [address], 04/11/2025 12:58:36 04/10/20 25 04/10/2025 COMPR EHENS JITENDRA METAB OLIC PANEL BUN/creatini ne ratio (calculated) 17.5 ratio 8.0-20 .0 Not Available [facility] [address], [place], [address], 04/11/2025 12:58:36 04/10/20 25 04/10/2025 COMPR EHENS JITENDRA METAB OLIC PANEL serum index hemolysis Normal index normal Not Available [facility] [address], [place], [address], 04/11/2025 12:58:36 04/10/20 25 04/10/2025 LIPID PANEL W/ LDL CHOL DIREC T(CHO L TOTAL , TRIGL YCERI GABRIEL, HDL CHOL, LDL CHOL. cholesterol, total 159 mg/dL 100-19 9 Not Available [facility] [address], [place], [address], 04/11/2025 12:58:37 04/10/20 25 04/10/2025 LIPID PANEL W/ LDL CHOL DIREC T(CHO L TOTAL , TRIGL YCERI GABRIEL, HDL CHOL, LDL CHOL. HDL cholesterol 75 mg/dL =>40 Not Available [facility] [address] [facility] [address] [address], [place], [address], 04/11/2025 12:58:37 04/10/20 25 04/10/2025 LIPID PANEL W/ LDL CHOL DIREC T(CHO L TOTAL , TRIGL YCERI GABRIEL, HDL CHOL, LDL CHOL. LDL cholesterol (direct) 71 mg/dL 0-99 Not Available [facility] [address], [place], [address], 04/11/2025 12:58:37 04/10/20 25 04/10/2025 LIPID PANEL W/ LDL CHOL DIREC T(CHO L TOTAL , TRIGL YCERI GABRIEL, HDL CHOL, LDL CHOL. triglyceride s 71 mg/dL 50-149 Not Available [facility] [address], [place], [address], 04/11/2025 12:58:37 04/10/20 25 04/10/2025 LIPID PANEL W/ LDL CHOL DIREC T(CHO L TOTAL , TRIGL YCERI GABRIEL, HDL CHOL, LDL CHOL. VLDL cholesterol (calculated) 14 mg/dL 5-40 Not Available [facility] [address], [place], [address], 04/11/2025 12:58:37 04/10/20 25 04/10/2025 LIPID PANEL W/ LDL CHOL DIREC T(CHO L TOTAL , TRIGL YCERI GABRIEL, HDL CHOL, LDL CHOL. chol/HDL ratio (calculated) 2.12 ratio 0.00-5 .00 Not Available [facility] [address], [place], [address], 04/11/2025 12:58:37 04/10/20 25 04/10/2025 LIPID PANEL W/ LDL CHOL DIREC T(CHO L TOTAL , TRIGL YCERI GABRIEL, HDL CHOL, LDL CHOL. LDL/HDL ratio (calculated) 0.95 ratio 0.00-3 .60 LDL/H DL Ratio Male Femal e 1/2 Avg. Risk 1.0 1.5 Avg. Risk 3.6 3.2 2x Avg. Risk 6.2 5.0 3x Avg. Risk 8.0 6.1 Not Available [facility] [address], [place], [address], 04/11/2025 12:58:37 04/10/20 25 04/10/2025 VITAM IN B12 vitamin B12 612 pg/mL 232-12 45 Not Available [facility] [address], [place], [address], 04/11/2025 12:58:37 04/10/20 25 04/10/2025 VITAM IN D, 25-HY DROXY TOTAL vitamin D, total 56.1 NG/mL 30.0-1 00.0 The Vitam in D Assay formu latio n has been updat ed to offer direc t trace abili ty to ID-LC -MS/M S Refer ence Measu remen t Proce dure along with a reduc tion in bioti n inter feren ce. Defic ient: < 30 ng/mL Insuf ficie nt: 21 - 29 ng/mL Suffi cient : 30 - 100 ng/mL Poten tial Intox icati on: > 100 ng/mL Not Available [facility] [address], [place], [address], 04/11/2025 12:58:38 04/10/20 25 04/10/2025 urina lysis , dipst ick Leukocytes Negati ve Not Available [facility], [address], [place], [address], 04/10/2025 13:12:00 04/10/20 25 04/10/2025 urina lysis , dipst ick Nitrite negati ve Not Available [address] [place], [place], [address], 04/10/2025 13:12:00 04/10/20 25 04/10/2025 urina lysis , dipst ick Urobilinogen .2 Not Available [address] [place], [place], [address], 04/10/2025 13:12:00 04/10/20 25 04/10/2025 urina lysis , dipst ick Protein Trace Not Available [address] [place], [place], [address], 04/10/2025 13:12:00 04/10/20 25 04/10/2025 urina lysis , dipst ick pH 5.0 Not Available [address] [place], [place], [address], 04/10/2025 13:12:00 04/10/20 25 04/10/2025 urina lysis , dipst ick Blood Small Not Available [address] [place], [place], [address], 04/10/2025 13:12:00 04/10/20 25 04/10/2025 urina lysis , dipst ick Specific [place] 1.015 Not Available [place] [address] [place], [place], [address], 04/10/2025 13:12:00 04/10/20 25 04/10/2025 urina lysis , dipst ick Ketone Negati ve Not Available [place] [address] [place], [place], [address], 04/10/2025 13:12:00 04/10/20 25 04/10/2025 urina lysis , dipst ick Bilirubin Negati ve Not Available [address] [place], [place], [address], 04/10/2025 13:12:00 04/10/20 25 04/10/2025 urina lysis , dipst ick Glucose Negati ve Not Available [address] [place], [place], [address], 04/10/2025 13:12:00 04/10/20 25 04/10/2025 urina lysis , dipst ick Appearance Cloudy Not Available [address] [place], [place], [address], 04/10/2025 13:12:00 04/10/20 25 04/10/2025 urina lysis , dipst ick Color Yellow Not Available [address] [place], [place], [address], 04/10/2025 13:12:00 05/13/19 25 05/13/2024 elect rocar diogr am No observ ation record ed. [address] [place], [place], [address], 06/04/2024 11:03:23 05/13/19 25 05/13/2024 elect rocar diogr am No observ ation record ed. [address] [place], [place], [address], 06/04/2024 11:03:24 10/18/19 25 08/06/2024 CT, chest , w/o contr ast No observ ation record ed. [facility] Demetrio SRanjan Ng, Msc [id number], [place], [address], 01/09/2025 11:40:19 01/11/2001/09/2025 carli metry testi ng* No observ ation record ed. [facility], [place] [address] [place], [place], [address], 04/10/2025 13:03:09 01/18/20 25 01/08/2025 CT, abdom en + pelvi s, w/ contr ast No observ ation record ed. [facility] [address], [place], [address], 04/10/2025 13:03:09 02/26/20 25 02/24/2025 bone densi ty No observ ation record ed. [facility] [address], [place], [address], 04/10/2025 13:03:08 Result Notes None recorded. Problems Name Problem SNOMED Code Status Onset Date Resolution Date Notes Provider Name and Address Organization Details Recorded Time Palpitat ions 02839990 Completed 201303/18/2018 Naila Gudino MD [address] [place], [place], [address] , [facility] 8 18:36:47 Fibrosis of lung 53169521 Completed 201303/18/2018 Naila Gudino MD [address] [place], [place], [address] , [facility] 9 18:46:01 Hoarse 42757311 Completed 201403/18/2018 MD Linnea Jefferson[address] [place], [place], [address] , [facility] 8 18:41:49 Disorder of lung 45448963 Completed 201403/18/2018 MD Linnea Jefferson[address] [place], [place], [address] , [facility] 8 18:37:02 Depressi ve disorder 29212021 Completed 201403/18/2018 Naila Gudino MD [address] [place], [place], [address] , [facility] 8 18:37:35 Imaging result abnormal 553944184 Completed 201403/18/2018 Naila Gudino MD [address] [place], [place], [address] , [facility] 8 18:36:31 Benign hyperten du 65605014 Active 2014 Naila Gudino MD [address] [place], [place], [address] , [facility] 8 12:16:19 Recurren t major depressi ve episodes , moderate 348920223 Completed 201403/18/2018 MD Linnea Jefferson[address] [place], [place], [address] , [facility] 8 18:37:29 Dyslipid emia 308512900 Completed 201408/21/2019 Naila Gudino MD [address] [place], [place], [address] , [facility] 0 12:20:51 Irregula r heart rate Active 2014 MD Linnea Jefferson[address] [place], [place], [address] , [facility] 8 12:16:19 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 05916904847 07 Active 2014 MD Linnea Jefferson[address] [place], [place], [address] , [facility] 8 12:16:19 Dyspnea on exertion 40943811 Completed 201403/18/2018 MD Candace Jefferson [address] [place], [place], [address] , [facility] 8 18:43:57 Rib pain 077396613 Completed 201503/18/2018 MD Candace Jefferson [address] [place], [place], [address] , [facility] 8 18:40:21 Chronic obstruct jitendra pulmonar y disease 22551421 Completed 201503/18/2018 MD Candace Jefferson [address] [place], [place], [address] , [facility] 8 18:40:06 Gastroes ophageal reflux disease 930959343 Active 2015 MD Candace Jefferson [address] [place], [place], [address] , [facility] 8 12:16:19 Knee pain Completed 201503/18/2018 MD Candace Jefferson [address] [place], [place], [address] , [facility] 8 18:40:24 Palpitat ions - rapid 752020859 Completed 201603/18/2018 MD Candace Jefferson [address] [place], [place], [address] , [facility] 8 18:40:17 Dizzines s 916086483 Completed 201603/18/2018 MD Candace Jefferson [address] [place], [place], [address] , [facility] 8 18:41:33 Low blood pressure 23387760 Active 2016 MD Candace Jefferson [address] [place], [place], [address] , [facility] 8 12:16:19 Tenderne ss of right upper quadrant of abdomen 228357070 Completed 201603/18/2018 MD Candace Jefferson [address] [place], [place], [address] , [facility] 8 18:41:45 Hernia of anterior abdomina l wall 771016785 Active 2016 Naila Gudino MD [address] [place], [place], [address] , [facility] 8 12:16:19 Hypogamm aglobuli nemia 330630744 Active 2016 once a month infusion s Naila Gudino MD [address] [place], [place], [address] , [facility] 8 12:16:19 Intersti tial lung disease 526208842 Completed 201603/18/2018 Naila Gudino MD [address] [place], [place], [address] , [facility] 5 12:56:58 Neuropat hy 346045282 Active 2016 Naila Gudino MD [address] [place], [place], [address] , [facility] 5 14:06:18 Disorder of trachea 80457015 Completed 201603/18/2018 collapse d trachea Naila Gudino MD [address] [place], [place], [address] , [facility] 8 18:37:51 Hypothyr oidism 21834634 Active 2016 MD Linnea Jefferson[address] [place], [place], [address] , [facility] 8 12:16:19 Asthma 933335136 Active 2016 mod , persista nt Naila Gudino MD [address] [place], [place], [address] , [facility] 8 18:43:38 Mixed anxiety and depressi ve disorder 692027553 Active 2016 MD Candace Jefferson [address] [place], [place], [address] , [facility] 8 12:16:19 Hyperlip idemia 23338933 Active 2016 MD Candace Jefferson [address] [place], [place], [address] , [facility] 8 12:16:19 Diarrhea 16311372 Completed 201603/18/2018 MD Candace Jefferson [address] [place], [place], [address] , [facility] 8 18:44:01 Obstruct jitendra sleep apnea syndrome 10364073 Active 2017 mild on sleep study 10/2016 MD Candace Jefferson [address] [place], [place], [address] , [facility] 8 12:16:19 Atrophic gastriti s 89862267 Active 2017 autoimmu ne , on GI note 08/15/17 MD Candace Jefferson [address] [place], [place], [address] , [facility] 8 18:08:52 Garrett' s esophagu s 302379118 Active 2017 MD Linnea Jefferson[address] [place], [place], [address] , [facility] 8 17:03:05 Vitamin D deficien cy 49526002 Active 2017 MD Candace Jefferson [address] [place], [place], [address] , [facility] 8 17:05:04 Vitamin B12 deficien cy (non anemic) 88408460 Active 2017 MD Candace Jefferson [address] [place], [place], [address] , [facility] 8 17:05:37 Tracheob ronchoma lacia 280631387 Active 2017 per pulm notes 03/13/18 Naila Gudino MD [address] [place], [place], [address] , [facility] 8 18:38:20 Vocal cord dysfunct ion 356046565 Active 2017 per pulm 03/13/18 MD Linnea Jefferson[address] [place], [place], [address] , [facility] 8 18:38:45 Bipolar disorder 30752097 Active 2017 Naila Gudino MD [address] [place], [place], [address] , [facility] 8 18:39:15 Nonspeci fic intersti tial pneumoni tis 824968903 Active 2017 Mild per pulm 03/13/18 Naila Gudino MD [address] [place], [place], [address] , [facility] 8 18:43:07 Body mass index 20-24 - normal 835076627 Active 2018 Kirstie hunter, [facility] 9 11:20:57 Steatoti c liver disease 482463648 [address] abd 01/22/19 Naila Gudino MD [address] [place], [place], [address] , [facility] 9 18:45:36 Fibrosis of lung 07206034 [address] abd 01/22/19 Naila Gudino MD [address] [place], [place], [address] , [facility] 9 18:46:01 Finding of pancreas 290893709 Active [address] abd 01/22/19 Naila Gudino MD [address] [place], [place], [address] , [facility] 9 18:47:25 Neoplasm of pancreas 682493144 Active 2018 Naila Gudino MD [address] [place], [place], [address] , [facility] 9 13:37:53 Osteoart hritis 731259696 Active 2019 MD Candace Jefferson [address] [place], [place], [address] , [facility] 0 12:21:55 Osteopen ia 637666873 Active 2020 MD Candace Jefferson [address] [place], [place], [address] , [facility] 1 15:37:19 Osteoart hritis of right knee joint 79353520814 9100 Active 2020 MD Linnea Jefferson[address] [place], [place], [address] , [facility] 1 12:31:27 Cyst of skin 588035100 Active 2021 MD Linnea Jefferson[address] [place], [place], [address] , [facility] 2 13:37:48 Mixed hyperlip idemia 468994544 Active 2021 MD Candace Jefferson [address] [place], [place], [address] , [facility] 2 15:07:19 Menopaus e Active 2021 MD Candace Jefferson [address] [place], [place], [address] , [facility] 2 12:55:48 Coronary arterios clerosis 88075768 Active 2022 MD Candace Jefferson [address] [place], [place], [address] , [facility] 3 13:08:33 Low back pain 238752328 Active 2022 MD Candace Jefferson [address] [place], [place], [address] , [facility] 3 13:14:18 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 64475589097 9106 Active 2022 MD Candace Jefferson [address] [place], [place], [address] , [facility] 3 21:22:43 Compress ion fracture of thoracic vertebra 90578433924 04 Active 2022 MD Candace Jefferson [address] [place], [place], [address] , [facility] 3 11:27:50 Compress ion fracture of lumbar spine 066672820 Active 2022 MD Candace Jefferson [address] [place], [place], [address] , [facility] 3 11:27:51 Cyst of kidney 213027323 Active 2022 MD Linnea Jefferson[address] [place], [place], [address] , [facility] 3 11:35:26 Osteopor osis 14150442 Active 2022 MD Candace Jefferson [address] [place], [place], [address] , [facility] 3 17:21:54 Chronic hypotens ion 33787574 Active 2022 MD Candace Jefferson [address] [place], [place], [address] , [facility] 3 17:13:39 History of SARS-CoV -2 92859867130 4358455 Active 2023 MD Candace Jefferson [address] [place], [place], [address] , [facility] 4 13:46:36 Gastroes ophageal reflux disease without esophagi tis 785305917 Active 2023 MD Candace Jefferson [address] [place], [place], [address] , [facility] 4 17:52:36 Intersti tial lung disease 978308144 Active 2024 MD Candace Jefferson [address] [place], [place], [address] , [facility] 5 12:56:58 Chronic constipa tion 227761200 Active 2024 MD Candace Jefferson [address] [place], [place], [address] , [facility] 5 13:05:35 Liver enzymes level above referenc e range 157815212 Active 2024 MD Candace Jefferson [address] [place], [place], [address] , [facility] 5 00:09:31 Fracture of tenth thoracic vertebra 904729701 Active 2024 MD Candace Jefferson [address] [place], [place], [address] , [facility] 5 14:00:36 Long-ter m current use of drug therapy 469048642 Active 2024 MD Candace Jefferson [address] [place], [place], [address] , [facility] 5 11:56:25 Mixed urinary incontin ence 673829167 Active 2024 MD Candace Jefferson [address] [place], [place], [address] , [facility] 5 13:11:54 Problem Notes None recorded. Procedures Surgical History Date Name Laterality Status Provider Name and Address Organization Details Recorded Time 023 Colonoscopy completed MD Candace Jefferson [address] [place], [place], [address], [facility] 10/23/2022 18:50:41 018 Cystourethroscopy completed Naila Gudino MD [address] [facility] [address] [place], [place], [address], [facility] 09/29/2017 12:09:21 018 Date of Last Mammogram completed Karly Sandoval [facility] 11/09/2017 16:32:33 018 Date of Last Colonoscopy completed Michelle Varela [facility] 11/25/2020 12:15:28 018 Colonoscopy completed Naila Gudino MD [address] [facility] [address] [place], [place], [address], [facility] 08/28/2017 17:10:59 975 Total Hysterectomy completed Zhanna Lambcj [facility] 11/07/2016 11:21:31 Cholecystectomy completed CLAUDIA GREENFIELDYCTUNG [facility] 11/07/2016 11:14:45 Imaging Results None recorded. Procedure Notes None recorded. Medical Equipment None Reported. Allergies Allergen ID Allergen Name Allergen Category Reaction Reaction Severity Criticality Documentation Date Start Date Code Code System Note Provider Name and Address Organization Details Recorded Time 15809 doxycycli ne Not available nausea Not available Not available 08/24/2024 3640 RxNorm Naila Gudino MD [address] [facility] [address] [place], [place], [address], [facility] 5 20:26:14 60667 benzonata te medicatio n dyspnea rash Not available Not available high 10/11/20242017 15627 RxNorm Breat anne-marie Diffi culty unrec ogniz ed react ion (text : Nause a & Vomit ing, code: 00523 000) (from exter nal sourc e) Not Available [facility] - External Data Service - prod 5 03:09:29 09663 hydrocodo ne Not available other Not available low 10/11/20242019 5489 RxNorm caus es littl e blood spots under my skin Not Available [facility] External Data Service - prod 5 03:09:29 47365 nitrofura ntoin, macrocrys tals / nitrofura ntoin, monohydra te medicatio n anaphylax is Not available [facility] 10/11/20242020 88495 2 RxNorm Not Available [facility] External Data Service - prod 5 03:09:29 5800 codeine medicatio n Not available Not available Not available 11/07/20162012 2670 RxNorm Other react ions and sever ities : 'Shor tness of breat h - Sever e', and 'Naus ea And Vomit ing - Sever e'. MD Candace Jefferson [address] [place], [place], [address], [facility] 8 12:12:02 5801 Macrobid medicatio n anaphylax is severe Not available 11/07/2016 99996 1 RxNorm resp distr ess Zhanna Sandoval [facility] 7 11:17:38 6980 nitrofura ntoin medicatio n Not available Not available Not available 10/05/20172012 7454 RxNorm MD Candace Jefferson [facility] [address] [place], [place], [address], [facility] 8 12:12:02 7260 Tessalon Perles medicatio n rash Not available Not available 11/09/2017 81803 4 RxNorm MD Candace Jefferson [facility] [address] [place], [place], [address], [facility] 8 17:00:04 Medications [...] Not Avai lable Nasonex 50 mcg/actuati on Lenora Lenora 2 sprays every day by intranasa l [...] lable Nasacort 55 mcg nasal spray aerosol Lenora 2 sprays every day by intranasa l [...] Updated DateTime 5 157.48 cm 20.5 kg/m2 48341.3 5 g 97.6 [degF] 80 /min 18 /min 107/62 mm[Hg] Sheryl Gipson [facility] 5 12:30:13 Date Recorded Body height Heart rate Respiratory rate Body temperature Body mass index (BMI) Body weight Systolic And Diastolic Provider Name and Address Organization Details Last Updated DateTime 5 157.48 cm 83 /min 18 /min 98.7 [degF] 20.5 kg/m2 35593.3 5 g 108/63 mm[Hg] [facility] 5 10:50:49 Date Recorded Body height Body mass index (BMI) Body weight Body temperature Respiratory rate Heart rate Systolic And Diastolic Provider Name and Address Organization Details Last Updated DateTime 157.48 cm 21.4 kg/m2 48083.3 1 g 97.5 [degF] 18 /min 61 /min 104/57 mm[Hg] [facility] 5 11:30:41 Date Recorded Body height Heart rate Respiratory rate Body temperature Body mass index (BMI) Body weight Systolic And Diastolic Provider Name and Address Organization Details Last Updated DateTime 5 157.48 cm 62 /min 18 /min 98.7 [degF] 21.2 kg/m2 81320.7 1 g 108/61 mm[Hg] Sheryl Gipson [facility] 5 11:05:51 Date Recorded Systolic And Diastolic Provider Name and Address Organization Details Last Updated DateTime 04/10/2025 105/57 mm[Hg] Naila Gudino MD [address] [facility] [address], [place], [address], [facility] 04/10/2025 12:55:32 Date Recorded Body mass index (BMI) Body weight Body temperature Heart rate Respiratory rate Provider Name and Address Organization Details Last Updated DateTime 04/10/2025 22.5 kg/m2 29795.8 6 g 98.7 [degF] 98 /min 18 /min [facility] 12:03[facility]20 Date Recorded Body height Provider Name an d Address Organization Details Last Updated DateTime 04/10/2025 157.48 cm Soumya Marina [facility] 04/10/2025 11:56:10 Social History Question Answer Notes LastModified by Organizat ion Details LastModified Time Tobacco Smoking Status Former Smoker CLAUDIA BOOTH elsa [facility] 11/07/2016 11:14:10 What Is Your Level Of Caffeine Consumption? 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 No [email or web address] Information not available 11/07/2016 High Number Of Sexual Partners No Information not available 05/26/2020 History Of Inconsistent/no Condom Use No Information not available 05/26/2020 Legally Blind In One Or Both Eyes? No [email or web address] Information no t available 11/07/2016 Live Alone Or With Others? With Others [email or web address] Information not available 11/07/2016 Marital Status [email or web address] Informatio n not available 11/07/2016 What Was [...] Many Years Have You Smoked Tobacco? 10 [email or web address] Information not available 11/07/2016 Have You Used IV Drugs? No Information not available 05/26/2020 Sex: Unknown Functional Status Question Answer Note LastModified by Organizat ion Details LastModified Time What is your level of alcohol consumption? Occasional [email or web address] Information not available 11/07/2016 Are you currently employed? No [email or web address] Information not available 11/07/2016 Are you able to care for yourself independently? Yes [email or web address] Information not available 11/07/2016 What is your occupation? retired Information not available 11/07/2016 Mental Status None [...] virus, trivalent, PF 6 completed Not Available [facility] 08/07/2022 15:45:03 Influenza, high-dose, trivalent, PF 8 completed Not Available [facility] 08/07/2022 15:45:03 Pneumococcal conjugate PCV 13 8 completed Not Available [facility] 08/07/2022 15:45:03 Tdap 9 completed Not Available [facility] 08/07/2022 15:45:03 zoster live 9 completed Not Available [facility] 08/07/2022 15:45:03 Influenza, split virus, trivalent, preservative 9 completed Not Available [facility] 08/07/2022 15:45:03 zoster recombinant 9 completed Not Available [facility] 08/07/2022 15:45:03 Influenza, split virus, quadrivalent, preservative 0 completed Not Available [facility] 08/07/2022 15:45:03 COVID-19, mRNA, LNP-S, PF, 100 mcg/0.5mL dose or 50 mcg/0.25mL dose 1 completed Not Available [facility] 08/07/2022 15:45:03 Influenza, split virus, quadrivalent, preservative 1 completed Not Available [facility] 08/07/2022 15:45:03 influenza, unspecified formulation 2 completed Not Available [facility] 08/07/2022 15:45:03 Influenza, high-dose, quadrivalent, PF 3 [facility] 12:08:40 Influenza, adjuvanted, trivalent, PF 4 completed MD Candace Jefferson [address], [place], [address], [facility] 12/20/2023 19:03:42 influenza, unspecified formulation 4 completed MD Candace Jefferson [facility] [address], [place], [address], [facility] 06/04/2024 11:12:38 influenza, unspecified formulation 5 completed MD Candace Jefferson [address], [place], [address], [facility] 04/10/2025 13:04:14 Pneumococcal conjugate PCV 13 6 completed Not Available [facility] 08/07/2022 15:45:03 Influenza, split virus, quadrivalent, preservative 6 completed Not Available [facility] 08/07/2022 15:45:03 Influenza, high-dose, trivalent, PF 7 completed Not Available [facility] 08/07/2022 15:45:03 pneumococcal polysaccharide PPV23 7 completed Not Available [facility] 08/07/2022 15:45:03 Past Encounters Encounter ID Performer Location Encounter Start Date Encounter Closed Date Diagnosis/Indication Diagnosis SNOMED-CT Code Diagnosis ICD10 Code Diagnosis IMO Codes Diagnosis Note [id number] ZHANNA SANDOVAL APN [facility], [place] [address] [place] [address] 11/07/2016 10:33:20 11/07/2016 12:22:55 Screening mammography 41823758 Z12.31 Screening for malignant neoplastic disease 89439645 Z12.9 history of hysterecto my Depression screening 171 932022 Z13.89 neg screening Mixed anxi ety and depressive disorder 236765388 F41.8 zoloftlami ctalgeodon xanaxDr. Naiper Asthma 778315334 J45.90 9 Recent symptoms of shortness of breathatro vent 3x/weekfol lows an immunologi st Interstiti al lung disease 767706220 J84.[address] [place] [address] Gisele Sanchez orin spirometry regularlyA dvair diskusBreo Atrovent Hypogammaglobulinemia 11 1951455 D80.1 Monthly infusion at [facility] Hyquviapre dnisone before and after infusions Benign hypertension 1072 5009 I10 Imdurstres s test completed by Dr. Watson 2017Cardia c cath Hypothyroidism 55313323 E03.9 levothyrox ine Hyperlipidemia 76298132 E78.5 atorvastat in Loss of hair 778729236 L 65.9 and thinning nails Fatigue 39547414 R53.83 Diarrhea 53637753 R19.7 DIarrhea x 1 month.Imod ium daily - which has been helping.Ga stroentero logist cancelatio n list at [facility] Active or passive immunization 576779529 Z23 Family his tory of diabetes mellitus 611009480 Z83.3 Candidiasis of vagina 72 854885 B37.3 Increased frequency of urination 532193096 R35.0 was treated with Bactrim from urgent care -- no reliefneed to obtain informatio n on UCrepeat UA with culture [id number] Naila Gudino MD [place] [facility], [address] [place] [address] 03/21/2017 11:28:36 03/21/2017 13:17:23 Low back pain 715156822 M54.5 Menopause 200614231 Z78. 0 Benign hypertension 1072 5009 I10 Hyperlipidemia 59371062 E78.5 Screening mammography 24 494653 Z12.31 Screening for malignant neoplasm of cervix 308509502 Z12.4 Viral screening 34133081 4 Z11.59 [id number] Naila Gudino MD [employer] [employer], [place] [address] [facility] [address] [place] [address] 07/05/2017 10:01:10 07/05/2017 11:25:01 Acute urinary tract infection 381631166 N39.0 Low back pain 843233079 M54.5 Garrett's esophagus 3029 05117 K22.70 F/U with GI , will try to get EGD and C scope from [place] Hyperlipidemia 62558520 E78.5 Hypothyroidism 16531741 E03.9 Screening procedure 2012 5006 Z13.9 Screening mammography 24 208427 Z12.31 per pt had mammogram 01/2017 Screening for malignant neoplasm of cervix 606764952 Z12.4 per pt had CLINICAL TRIAL SPECIALIST ex 01/2017 Obstructiv e sleep apnea syndrome 43005131 G47.33 [id number] Naila Gudino MD [facility] [address] [place] [address] 11/09/2017 16:12:31 11/09/2017 17:20:20 Garrett's esophagus 891681226 K22.70 F/U with GI , seen GI , increased omeprazole to 40 BID , had EGD and C scope Dx autoimmune gastritis Chronic cough 03575849 R 05 seen allergy and pulm @ [facility] Chronic ob structive pulmonary disease 16468775 J44.9 Coronary arteriosclerosis in [place] artery 6532979332 107 I25.10 by history , per pt sees cardiology Dr Vinson @ [facility] every year Benign hypertension 1072 5009 I10 good Hypothyroidism 17753143 E03.9 last TSH 07/14/17 Hyperlipidemia 86612414 E78.5 last LDL 07/14/17 Vitamin D deficiency 347 70343 E55.9 Vitamin B1 2 deficiency (non anemic) 51751264 E53.8 Screening mammography 24 108869 Z12.31 per pt had mammogram 07/2017 Screening for malignant neoplasm of cervix 595525476 Z12.4 per pt had CLINICAL TRIAL SPECIALIST ex 01/2017 Screening for malignant neoplasm of colon 667843778 Z12.11 last C scope 05/23/17 [id number] Naila Gudino MD [facility] [address] [place] [address] 02/28/2018 10:12:49 02/28/2018 11:26:51 Benign hypertension 34163827 I10 now it is low , decrease isosorbide , BP 1 week Dizziness 550210816 R42 Bunion 290759061 M21.61 9 Sinusitis 93618778 J32.9 use nasonex Impacted c erumen in right ear 3712850097 342660 H61.21 Screening mammography 24 476331 Z12.31 per pt had mammogram 07/2017 Screening for malignant neoplasm of cervix 611258182 Z12.4 per pt had CLINICAL TRIAL SPECIALIST ex 01/2017 Screening for malignant neoplasm of colon 537198408 Z12.11 last C scope 05/23/17 Active or passive immunization 269833622 Z23 flu shot after done with Abx Hypothyroidism 05709817 E03.9 last TSH 07/14/17 [id number] Naila Gudino MD [facility] [address] [facility] [address] [place] [address] 04/09/2018 15:10:55 04/09/2018 16:54:43 Syncope 376977954 R55 work up inpt was -veresolve d seeing neurology @ [facility] 05/2018 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 , seen GI @ [facility] ,on high dose PPI and H2B Bipolar disorder 4237403 4 F31.9 Coronary arteriosclerosis in [place] artery 6889470251 107 I25.10 by history , per pt sees cardiology Dr Vinson @ [place] every year Garrett's esophagus 3029 25635 K22.70 F/U with GI , seen GI , increased omeprazole to 40 BID , had EGD and C scope Dx autoimmune gastritis Hypothyroidism 00354074 E03.9 last TSH 03/04/18 Benign hypertension 1072 5009 I10 now it is low , decrease isosorbide , BP 1 week Screening mammography 24 225349 Z12.31 per pt had mammogram 07/2017 Screening for malignant neoplasm of cervix 034083319 Z12.4 per pt had CLINICAL TRIAL SPECIALIST ex 01/2017 Screening for malignant neoplasm of colon 931349791 Z12.11 last C scope 05/23/17 Active or passive immunization 010054035 Z23 per pt had flu shot @ [id number] Naila Gudino MD [facility] [address] [facility] [address] [place] [address] 07/27/2018 11:13:45 07/27/2018 12:24:27 Adult health examination 747872539 Z00.01 Benign hypertension 1072 5009 I10 good control Hypogammaglobulinemia 11 2517731 D80.1 on IV every 30 days Asthma 715407958 J45.90 9 sees pulm every 6 months Vitamin B1 2 deficiency (non anemic) 00596923 E53.8 b12 shot today Atrophic gastritis 47768 007 K29.40 autoimmune , seen GI @ [facility] ,on high dose PPI and H2B Dyslipidemia 234124115 E 78.5 last LDL 03/2018 Vitamin D deficiency 347 77387 E55.9 Garrett's esophagus 3029 14094 K22.70 F/U with GI , seen GI , increased omeprazole to 40 BID , had EGD and C scope Dx autoimmune gastritis Coronary arteriosclerosis in [place] artery 0473883053 107 I25.10 by history , per pt sees cardiology Dr Vinson @ [place] every yearlast EKG 11/09/17 Tracheobronchomalacia 23 8350659 Q32.2 sees pulm every 6 months Bipolar disorder 8626117 4 F31.9 sees psych Nonspecifi c interstitial pneumonitis 705438589 J84.9 sees pulm every 6 months Screening mammography 24 723882 Z12.31 per pt had mammogram 07/2017 Screening for malignant neoplasm of cervix 484383594 Z12.4 per pt had CLINICAL TRIAL SPECIALIST ex 01/2017 Sinusitis 74084929 J32.9 use nasonex Screening for malignant neoplasm of colon 344896625 Z12.11 last C scope 05/23/17 Active or passive immunization 001599060 Z23 per pt had flu shot @ [facility] Inflamed s eborrheic keratosis 327205004 L82.0 [id number] Naila Gudino MD [place] [facility], [facility] [address] [facility] [address] [address] 11/26/2018 11:20:50 11/26/2018 12:34:28 Lesion of skin of face 2139852384 06 L98.9 derm F/U , seeing one tomorrow Benign hypertension 1072 5009 I10 good control Hypogammaglobulinemia 11 2710638 D80.1 on IV every 30 days Asthma 861587847 J45.90 9 sees pulm every 6 months Hyperlipidemia 95558620 E78.5 last LDL 03/01/18 Screening mammography 24 337960 Z12.31 per pt had mammogram 07/2017 Screening for malignant neoplasm of cervix 870351317 Z12.4 per pt had CLINICAL TRIAL SPECIALIST ex 01/2017 Screening for malignant neoplasm of colon 389542226 Z12.11 last C scope 05/23/17 Active or passive immunization 023198450 Z23 per pt had flu shot @ [facility] Right lowe r quadrant pain 602583006 R10.31 H/O appendecto my and cholecyste ctomy Hypothyroidism 02642380 E03.9 last TSH 05/16/18 [id number] Naila Gudino MD [employer], [place] [facility] [place] [address] 01/31/2019 12:01:04 01/31/2019 13:50:21 Neoplasm of pancreas 924535564 D49.[address] abd 01/21/19 , recheck 12/2019 Tracheobronchomalacia 23 9158098 Q32.2 sees pulm every 6 months Coronary arteriosclerosis in [place] artery 4882589254 107 I25.10 by history , per pt sees cardiology Dr Vinson @ [place] every yearlast EKG 11/09/17 Garrett's esophagus 3029 86310 K22.70 F/U with GI , seen GI , increased omeprazole to 40 BID , had EGD and C scope Dx autoimmune gastritis Hypogammaglobulinemia 11 1250960 D80.1 on IV every 30 days Hypothyroidism 20886125 E03.9 last TSH 12/21/18 [id number] ZHANNA SANDOVAL APN [employer], [place] [address] [address] [place] [address] 04/03/2019 11:40:52 04/03/2019 12:17:42 Cough 19306289 R05 02 98%if symptoms do not improve or if they worsen call the office - Influenza- like symptoms 869819856 R68.89 Unintentio nal weight loss 468203361 R63.4 lost 8 pounds since 01/31/19no loss of appetite - [id number] Naila Gudino MD [employer], [place] [facility] [address] [place] [address] 05/22/2019 11:46:28 05/22/2019 12:53:46 Solitary nodule of lung 179118122 R91.[address] 04/10/20 Idiopathic pulmonary fibrosis 384429501 J84.112 sees pulm @ [facility] every 6 months Benign hypertension 1072 5009 I10 good control Garrett's esophagus 3029 34855 K22.70 F/U with GI , seen GI , increased omeprazole to 40 BID , had EGD and C scope Dx autoimmune gastritis Coronary arteriosclerosis in [place] artery 5978933589 107 I25.10 by history , per pt sees cardiology Dr Vinson @ [place] every yearlast EKG 11/09/17 Hyperlipidemia 43207837 E78.5 last LDL 12/21/18 Hypogammaglobulinemia 11 5097901 D80.1 on IV every 30 days Mixed anxi ety and depressive disorder 852092079 F41.8 No HI , no SI Neoplasm of pancreas [address] abd 01/21/19 , recheck 12/2019 Vocal cord dysfunction 775304151 R49.9 just seen ENT 04/18/19 Screening mammography 24 881976 Z12.31 per pt had mammogram 01/22/19 Screening for malignant neoplasm of colon 731443334 Z12.11 last C scope 05/23/17 Active or passive immunization 745923928 Z23 per pt had flu shot @ [facility] Osteoarthritis 488765378 M19.90 Vitamin B1 2 deficiency (non anemic) 35256894 E53.8 b12 shot today [id number] Naila Gudino MD [place] [facility], [place] [address] [facility] [address] ,[address] [address] 08/21/2019 12:11:31 08/21/2019 12:42:12 Adult health examination 874453440 Z00.01 Benign hypertension 1072 5009 I10 good control Garrett's esophagus 3029 30821 K22.70 F/U with GI , seen GI , increased omeprazole to 40 BID , had EGD and C scope 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 , seen GI @ [facility] ,on high dose PPI and H2B Asthma 803632224 J45.90 9 sees pulm every 6 months Bipolar disorder 2923362 4 F31.9 sees psych Body mass index 20-24 - normal 266947078 Z68.23 education Coronary arteriosclerosis in [place] artery 3150261772 107 I25.10 by history , per pt sees cardiology Dr Vinson @ [place] every yearlast EKG 11/09/17 Fibrosis of lung 4546977 1 J84.10 sees pulm every 6 months Hyperlipidemia 79901670 E78.5 last LDL 12/21/18 Hypogammaglobulinemia 11 8540770 D80.1 on IV every 30 days Hypothyroidism 50791309 E03.9 last TSH 12/21/18 Mixed anxi ety and depressive disorder 942458017 F41.8 No HI , no SI Neuropathy 258851403 G62 .9 Nonspecifi c interstitial pneumonitis 899922716 J84.9 sees pulm every 6 months Obstructiv e sleep apnea syndrome 39789219 G47.33 good compliance Steatotic liver disease 296117255 K76.0 education Vitamin B1 2 deficiency (non anemic) 40053386 E53.8 b12 shot today Vitamin D deficiency 347 33553 E55.9 Vocal cord dysfunction 908190359 R49.9 just seen ENT 04/18/19 Solitary n odule of lung 456507227 R91.[address] 04/10/20 Idiopathic pulmonary fibrosis 534182462 J84.112 sees pulm @ [facility] every 6 months Neoplasm of pancreas [address] abd 01/21/19 , recheck 12/2019 Screening mammography 24 200929 Z12.31 per pt had mammogram 01/22/19 Screening for malignant neoplasm of colon 655512132 Z12.11 last C scope 05/23/17 Active or passive immunization 852676291 Z23 per pt had flu shot @ [facility] to date Osteoarthritis 444615348 M19.90 Paresthesi a of upper limb 84886636 R20.2 [id number] Naila Gudino MD [employer], [address] [place] [address] 10/23/2019 15:28:29 10/23/2019 16:43:11 Rib pain 112802449 R07.81 X ray -ve Accidental fall 79936457 2 W19.XXXA [id number] Naila Gudino MD [employer] [facility], [address] [place] [address] 11/13/2019 11:21:10 11/13/2019 12:18:51 Preoperative cardiovascular examination 738207286 Z01.810 clear for surghad stress test 02/12/19 Benign hypertension 1072 5009 I10 good control Asthma 889594824 J45.90 9 sees pulm every 6 months Hypothyroidism 74280631 E03.9 last TSH 08/21/19 [id number] Naila Gudino MD [employer], [place] [address] [facility] [address] [place] [address] 02/24/2020 15:40:50 02/24/2020 17:10:39 Benign hypertension 16972749 I10 good control Hyperlipidemia 75835244 E78.5 last LDL 12/21/18 Hypothyroidism 09103086 E03.9 last TSH 08/21/19 Vitamin B1 2 deficiency (non anemic) 04372608 E53.8 b12 shot today Vitamin D deficiency 347 14481 E55.9 Screening mammography 24 107340 Z12.31 per pt had mammogram 01/22/19 Screening for malignant neoplasm of cervix 785364534 Z12.4 per pt had CLINICAL TRIAL SPECIALIST ex 01/2017 Rib pain 608271074 R07.8 1 X ray -ve Screening for malignant neoplasm of colon 149207946 Z12.11 last C scope 05/23/17 Active or passive immunization 874708733 Z23 per pt had flu shot @ [facility] to date [id number] Naila Gudino MD [employer], [place] [facility] [address] [place] [address] 05/26/2020 15:05:45 05/26/2020 15:44:37 Benign hypertension 73265925 I10 good control Hyperlipidemia 15754755 E78.5 last LDL 05/25/20 @ Cardiology office was 75 Hypothyroidism 64357889 E03.9 last TSH 03/10/20 Mixed anxi ety and depressive disorder 409382526 F41.8 No HI , no SI Vitamin B1 2 deficiency (non anemic) 56511820 E53.8 last level 03/10/20 Vitamin D deficiency 347 12134 E55.9 last level 03/10/20 Bipolar disorder 1798275 4 F31.9 sees psych Asthma 761491192 J45.90 9 sees pulm every 6 months Screening for malignant neoplasm of colon 744893802 Z12.11 last C scope 05/23/17 Garrett's esophagus 3029 77839 K22.70 F/U with GI , Right uppe r quadrant pain 242050544 R10.11 toradol 1 ml now Obstructiv e sleep apnea syndrome 07201904 G47.33 good compliance Screening mammography 24 519202 Z12.31 per pt had mammogram 01/22/19 Screening for malignant neoplasm of cervix 698048651 Z12.4 per pt had CLINICAL TRIAL SPECIALIST ex 01/2017 Immunization due 6304194 08 Z28.3 up to date Osteopenia 207828849 M85 .80 last DEXA 03/30/17 [id number] Naila Gudino MD [employer], [place] [address] [facility] [address] [address] 08/25/2020 14:54:18 08/25/2020 15:40:17 Adult health examination 473511812 Z00.01 Asthma 884202989 J45.90 9 sees pulm every 6 months Atrophic gastritis 86478 007 K29.40 autoimmune , seen GI @ [facility] ,on high dose PPI and H2B Garrett's esophagus 3029 01645 K22.70 F/U with GI , Benign hypertension 1072 5009 I10 good control Bipolar disorder 7131374 4 F31.9 sees psych Body mass index 20-24 - normal 774555425 Z68.23 education Fibrosis of lung 0807215 1 J84.10 sees pulm every 6 months Gastroesop hageal reflux disease 874287156 K21.9 Hernia of anterior abdominal wall 541951882 K43.9 Hyperlipidemia 60662038 E78.5 last LDL 05/25/20 @ Cardiology office was 75 Hypogammaglobulinemia 11 6503508 D80.1 on IV every 30 days Hypothyroidism 15578727 E03.9 last TSH 03/10/20 Low blood pressure 11398 003 I95.9 Mixed anxi ety and depressive disorder 547376455 F41.8 No HI , no SI Neoplasm of pancreas [address] abd 01/21/19 , recheck 12/2019 Neuropathy 879520646 G62 .9 Nonspecifi c interstitial pneumonitis 103406219 J84.9 sees pulm every 6 months Obstructiv e sleep apnea syndrome 54001264 G47.33 good compliance Osteoarthritis 286026303 M19.90 Osteopenia 708236229 M85 .80 last DEXA 03/30/17 Steatotic liver disease 757174673 K76.0 education 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 9 on CXR 08/06/20 Screening mammography 24 345353 Z12.31 per pt had mammogram 01/22/19 Screening for malignant neoplasm of cervix 762216257 Z12.4 per pt had CLINICAL TRIAL SPECIALIST ex 01/2017 Screening for malignant neoplasm of colon 792743837 Z12.11 last C scope 05/23/17 Active or passive immunization 772519313 Z23 per pt had flu shot @ up to date [id number] Naila Gudino MD [employer], [place] [address] [place] [address] 11/25/2020 11:52:04 11/25/2020 13:03:26 Syncope 315985017 R55 work up inpt was -veresolve d Acute urin matty tract infection 908563073 N39.0 Transient cerebral ischemia 935040330 G45.9 resloved , will get Carotid US and ECHO result from hosp Benign hypertension 1072 5009 I10 good controldec rease isosorbid to 30 qd Vitamin B1 2 deficiency (non anemic) 63734338 E53.8 last level 03/10/20 Candidiasis of mouth 797 06469 B37.0 [id number] Naila Gudino MD [employer], [place] [facility] [place] [address] 12/29/2020 12:38:43 12/29/2020 13:44:54 Pain in right knee 6638879018 81984 M25.561 Garrett's esophagus 3029 19571 K22.70 F/U with GI , will try to get EGD report Benign hypertension 1072 5009 I10 good controlsto p isosorbide to 30 qdBP 2 weeks Bipolar disorder 0138159 4 F31.9 sees psych Vitamin B1 2 deficiency (non anemic) 77400115 E53.8 last level 03/10/20 Screening mammography 24 761445 Z12.31 per pt had mammogram 12/2019 Screening for malignant neoplasm of cervix 164114636 Z12.4 per pt had CLINICAL TRIAL SPECIALIST ex 01/2017 Screening for malignant neoplasm of colon 169107617 Z12.11 last C scope 05/23/17 Active or passive immunization 049915740 Z23 per pt had flu shot @ up to date [id number] Naila Gudino MD [facility] [address] [facility] [address] [place] [address] 02/01/2021 11:47:13 02/01/2021 12:35:57 Rib pain 572859222 R07.81 X ray -ve Osteoarthr itis of right knee joint 3928521115 79346 M17.11 tylenol 500 TID [id number] Naila Gudino MD [employer] [facility] [address] [facility] [address] [place] [address] 03/31/2021 11:47:09 03/31/2021 12:57:42 Benign hypertension 19487245 I10 good controlBP 2 weeks Garrett's esophagus 3029 94378 K22.70 F/U with GI ,last EGD 01/2021 Asthma 037737641 J45.90 9 sees pulm every 6 months Body mass index 20-24 - normal 535439427 Z68.23 education Hyperlipidemia 25289645 E78.5 last LDL 09/24/20 Hypogammaglobulinemia 11 8720927 D80.1 on IV every 30 days Hypothyroidism 40114703 E03.9 last TSH 09/24/20 Mixed anxi ety and depressive disorder 304988074 F41.8 No HI , no SI Neuropathy 927188551 G62 .9 fair controllas t B12 12/30/20 Osteoarthritis 372826831 M19.90 Vitamin D deficiency 347 11574 E55.9 last level 03/10/20 Screening mammography 24 150169 Z12.31 per pt had mammogram 12/2019 Screening for malignant neoplasm of cervix 022447084 Z12.4 per pt had CLINICAL TRIAL SPECIALIST ex 01/2017 Screening for malignant neoplasm of colon 933473693 Z12.11 last C scope 05/23/17 Active or passive immunization 331564447 Z23 per pt had flu shot up to date [id number] Naila Gudino MD [facility] [place] [address] [facility] [address] [place] [address] 07/21/2021 13:43:29 07/21/2021 14:59:18 Low back pain 540679296 M54.50 Accidental fall 08085122 2 W19.XXXA education Asthma 453648631 J45.90 9 sees pulm every 6 months Garrett's esophagus 3029 10458 K22.70 F/U with GI ,last EGD 01/2021 Body mass index 20-24 - normal 156680909 Z68.23 education Gastroesop hageal reflux disease 209176139 K21.9 Hyperlipidemia 15481426 E78.5 last LDL 04/06/21 Localized eruption of skin 328652002 R21 Screening mammography 24 812914 Z12.31 per pt had mammogram 12/2019 Menopause 935699357 Z78. 0 Screening for malignant neoplasm of cervix 107268940 Z12.4 per pt had CLINICAL TRIAL SPECIALIST ex 06/2021 Congestion of nasal sinus 91466880 R09.81 881366 Naila Gudino MD [facility], [place] [address] [facility] ,[address] [place] [address] 09/08/2021 10:41:52 09/08/2021 11:35:55 Adult health examination 863145958 Z00.01 Asthma 503253053 J45.90 9 sees pulm every 6 months Atrophic gastritis 23992 007 K29.40 autoimmune , seen GI @ [facility] ,on high dose PPI and H2B Garrett's esophagus 3029 75525 K22.70 F/U with GI ,last EGD 01/2021 Benign hypertension 1072 5009 I10 good controlBP 2 weekslast EKG 11/20/20 Bipolar disorder 8466790 4 F31.9 sees psych Body mass index 20-24 - normal 537897634 Z68.23 education Fibrosis of lung 7920360 1 J84.10 sees pulm every 6 months Gastroesop hageal reflux disease 266474400 K21.9 stable Hyperlipidemia 15079505 E78.5 last LDL 04/06/21 Hypothyroidism 99570138 E03.9 last TSH 04/06/21 Mixed anxi ety and depressive disorder 354701945 F41.8 No HI , no SI Neoplasm of pancreas [address] abd 01/21/19 , recheck 12/2019 Neuropathy 073033982 G62 .9 fair controllas t B12 12/30/20 Obstructiv e sleep apnea syndrome 72190094 G47.33 good compliance Osteoarthritis 046112000 M19.90 stable Osteopenia 495109362 M85 .80 order for DEXA 08/25/20 Vitamin B1 2 deficiency (non anemic) 67351014 E53.8 last level 12/30/20 Vitamin D deficiency 347 53242 E55.9 last level 04/06/21 Vocal cord dysfunction 587807014 R49.9 just seen ENT 04/18/19 Screening mammography 24 974128 Z12.31 per pt had mammogram 07/2021 Screening for malignant neoplasm of cervix 471878887 Z12.4 per pt had CLINICAL TRIAL SPECIALIST ex 06/2021 Screening for malignant neoplasm of colon 121714193 Z12.11 last C scope 05/23/17 Active or passive immunization 783319796 Z23 per pt had flu shot up to date Advance di rective discussed with patient 158115723 Z71.89 education [id number] Naila Gudino MD [facility], [facility] [address] [facility] [address] [address] 01/04/2022 10:46:51 01/04/2022 12:12:02 Accidental fall 040110270 W19.XXXA education Pain of left forearm 340 4724940 91088 M79.632 bruising and painrechec k 1-2 weeks Asthma 893737264 J45.90 9 sees pulm every 6 months Benign hypertension 1072 5009 I10 good controlBP 2 weekslast EKG 12/06/21 Garrett's esophagus 3029 04920 K22.70 F/U with GI ,last EGD 01/2021 Body mass index 20-24 - normal 449005120 Z68.23 educationl ost 5 LBsensure QD Coronary arteriosclerosis 28614714 I25.10 last stress test 11/2021 Hyperlipidemia 47813599 E78.5 last LDL 12/7/21 Hypogammaglobulinemia 11 1652855 D80.1 on IV every 30 days Screening mammography 24 231597 Z12.31 per pt had mammogram 09/03/2021 Screening for malignant neoplasm of cervix 488982004 Z12.4 per pt had CLINICAL TRIAL SPECIALIST ex 06/2021 Screening for malignant neoplasm of colon 768167612 Z12.11 last C scope 05/23/17 Active or passive immunization 409268614 Z23 per pt had flu shot up to date 518871 Naila Gudino MD [facility] [place] [facility] [place] [address] 04/06/2022 12:17:53 04/06/2022 13:13:27 Benign hypertension 27308132 I10 good controllas t ophth P 2 weekslast EKG 12/06/21 Gastroesop hageal reflux disease 815908862 K21.9 stable Hypothyroidism 20862222 E03.9 last TSH 03/16/22 was low , recheck 6 weeks Mixed anxi ety and depressive disorder 472340081 F41.8 No HI , no SI Mixed hyperlipidemia 267 758844 E78.2 last LDL 03/16/22 Vitamin B1 2 deficiency (non anemic) 74604267 E53.8 last level 12/30/20 Vitamin D deficiency 347 78614 E55.9 last level 04/06/21 Menopause 939897749 Z78. 0 Screening mammography 24 820956 Z12.31 per pt had mammogram 09/03/2021 Screening for malignant neoplasm of cervix 291325393 Z12.4 per pt had CLINICAL TRIAL SPECIALIST ex 06/2021 Screening for malignant neoplasm of colon 284161857 Z12.11 last C scope 05/23/17 Active or passive immunization 364729596 Z23 per pt had flu shot up to date Acute sinusitis 56270447 J01.90 465662 Naila Gudino MD [facility], [place] [address] [facility] [address] [place] [address] 10/10/2022 11:47:11 10/10/2022 13:28:48 Adult health examination 608156454 Z00.01 Benign hypertension 1072 5009 I10 good controllas t ophth 4/2022BP 2 weekslast EKG 12/06/21 Garrett's esophagus 3029 18504 K22.70 F/U with GI ,last EGD 01/2022 Asthma 190038657 J45.90 9 sees pulm every 6 months Bipolar disorder 0417498 4 F31.9 sees psych Body mass index 20-24 - normal 181088094 Z68.23 educatione nsure QD Coronary arteriosclerosis 36985966 I25.10 last stress test 11/2021 Fibrosis of lung 1993633 1 J84.10 sees pulm every 6 months Gastroesop hageal reflux disease 187665409 K21.9 stable Hernia of anterior abdominal wall 168557243 K43.9 education Hyperlipidemia 60805773 E78.5 last LDL 04/06/21 Hypogammaglobulinemia 11 4108557 D80.1 on IV every 30 days Hypothyroidism 00415742 E03.9 last TSH 03/16/22 was low , recheck 6 weeks Low blood pressure 73031 003 I95.9 education Menopause 307196314 Z78. 0 last DEXA 12/2021 Mixed anxi ety and depressive disorder 854355203 F41.8 No HI , no SI Mixed hyperlipidemia 267 372659 E78.2 last LDL 03/16/22 Neoplasm of pancreas [address] abd 01/21/19 , recheck Neuropathy 074685199 G62 .9 fair controllas t B12 12/30/20 Obstructiv e sleep apnea syndrome 80402394 G47.33 good compliance Osteoarthritis 536421176 M19.90 stable Osteoarthr itis of right knee joint 8119825368 68384 M17.11 tylenol 500 TID Osteopenia 169474045 M85 .80 order for DEXA 01/13/22 Steatotic liver disease 660304512 K76.0 education Vitamin B1 2 deficiency (non anemic) 82644289 E53.8 last level 05/31/22 Vitamin D deficiency 347 34023 E55.9 last level 04/06/21 Vocal cord dysfunction 839390486 R49.9 just seen ENT 04/18/19 Tracheobronchomalacia 23 0324603 Q32.2 sees pulm every 6 months Nonspecifi c interstitial pneumonitis 728567245 J84.9 sees pulm every 6 months Screening mammography 24 667791 Z12.31 per pt had mammogram 09/03/2021 Screening for malignant neoplasm of cervix 311345401 Z12.4 per pt had CLINICAL TRIAL SPECIALIST ex 06/2021 Screening for malignant neoplasm of colon 850684488 Z12.11 last C scope 05/23/17 Active or passive immunization 123574101 Z23 per pt had flu shot up to date Advance di rective discussed with patient 927805430 Z71.89 education Low back pain 620829395 M54.50 X ray -ve 06/2021 [id number] Naila Gudino MD [facility] [address] [place] [address] 11/08/2022 13:49:33 11/08/2022 14:25:37 Bronchitis 91968328 J40 O2 is 95% Hypogammaglobulinemia 11 8187143 D80.1 on IV every 30 days 801453 Naila Gudino MD [facility], [place] [address] [facility] [address] [place] [address] 01/09/2023 10:24:49 01/09/2023 11:41:07 Compression fracture of lumbar spine 252385529 M48.56XA L2 on CT abd 12/26/22 Compressio n fracture of thoracic vertebra 5853293889 [address] T spine 11/11/22 Osteopenia 976733057 M85 .80 order for DEXA 01/13/22 with compressio n fracture , will need prolia Benign hypertension 1072 5009 I10 good controllas t ophth P 2 weekslast EKG 12/06/21 Mixed hyperlipidemia 267 265369 E78.2 last LDL 03/16/22 Vitamin B1 2 deficiency (non anemic) 29896902 E53.8 last level 05/31/22 Vitamin D deficiency 347 24178 E55.9 last level 04/06/21 Neuropathy 947642786 G62 .9 fair controllas t B12 12/30/20 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 7277906120 [address] 12/26/22 , recheck 1 year Hypothyroidism 05669504 E03.9 last TSH 03/16/22 was low , recheck 6 weeks Coronary arteriosclerosis 26965076 I25.10 last stress test 11/2021 Screening mammography 24 526107 Z12.31 per pt had mammogram 09/03/2021 Screening for malignant neoplasm of cervix 418687038 Z12.4 per pt had CLINICAL TRIAL SPECIALIST ex 06/2021 Screening for malignant neoplasm of colon 590218511 Z12.11 last C scope 05/23/17 Active or passive immunization 483310716 Z23 per pt had flu shot up to date Cyst of kidney 439390523 N28.1 on the Lt on CT abd 12/26/22 [id number] Nalia Gudino MD [facility], [place] [address] [facility] [address] [place] [address] 02/09/2023 16:20:54 02/09/2023 17:25:04 Hospital inpatient stay within past 30 days 7106205950 106 Z76.89 went to ER 01/24/23 for encephalop athy , inpt till 01/27/23 Dx pneumonia , sepsis , better now , compliance with meds , F/U susy 04/10/23 Pneumonia 828605368 J18. 9 Chronic hypotension 7754 5000 I95.89 Sepsis 79123057 A41.9 resolved Interstiti al lung disease 608376070 J84.9 603043 Naila Gudino MD [facility], [place] [address] [address] [place] [address] 05/10/2023 12:27:07 05/10/2023 14:12:04 Pneumonia 697845805 J18.9 History of SARS-CoV-2 29 21759881 80245386 Z86.16 05/07/23 Benign hypertension 1072 5009 I10 good controllas t ophth P 2 weekslast EKG 01/09/23 Asthma 437566063 J45.90 9 sees pulm every 6 months Hypothyroidism 50094214 E03.9 last TSH 03/06/23 was low , recheck 6 weeks Mixed hyperlipidemia 267 899338 E78.2 last LDL 03/06/23 Screening mammography 24 210684 Z12.31 per pt had mammogram 09/03/2021 Active or passive immunization 762244983 Z23 per pt had flu shot up to date [id number] Naila Gudino MD [facility] [address] [place] [address] 07/12/2023 14:25:05 07/12/2023 15:34:54 Benign hypertension 03817791 I10 good controllas t ophth P 2 weekslast EKG 01/09/23 Asthma 191650676 J45.90 9 sees pulm every 6 months Garrett's esophagus 3029 77343 K22.70 F/U with GI ,last EGD 01/2022 Body mass index 20-24 - normal 665799531 Z68.23 educatione nsure QD Compressio n fracture of thoracic vertebra 4981410130 [address] T spine 11/11/22 Coronary arteriosclerosis 11629225 I25.10 last stress test 11/2021 Hyperlipidemia 93175642 E78.5 last LDL 04/06/21 Hypogammaglobulinemia 11 9834195 D80.1 on IV every 30 days Hypothyroidism 48494115 E03.9 last TSH 05/10/23 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 7466941270 [address] 12/26/22 , recheck 1 year Mixed hyperlipidemia 267 595955 E78.2 last LDL 03/06/23 Osteoporosis 76287033 M8 1.0 last DEXA 01/13/22 osteopenia with compressio n Fx Vitamin B1 2 deficiency (non anemic) 32826018 E53.8 last level 05/31/22 Screening mammography 24 839135 Z12.31 per pt had mammogram 08/2023 Screening for malignant neoplasm of cervix 540992764 Z12.4 per pt had CLINICAL TRIAL SPECIALIST ex 06/2021 Screening for malignant neoplasm of colon 614392431 Z12.11 last C scope 05/23/17 Active or passive immunization 221334517 Z23 per pt had flu shot up to date [id number] Naila Gudino MD [facility] [employer] [facility] [address] [place] [address] 10/25/2023 11:14:44 10/25/2023 13:18:42 Adult health examination 835988131 Z00.01 Benign hypertension 1072 5009 I10 good controllas t ophth P 2 weekslast EKG 01/09/23 Pain in th oracic spine 815777611 M54.6 Asthma 023998881 J45.90 9 sees pulm every 6 months Garrett's esophagus 3029 80233 K22.70 F/U with GI ,last EGD 01/2022 Bipolar disorder 4611337 4 F31.9 sees psych Body mass index 20-24 - normal 651906112 Z68.23 educatione nsure QD Chronic hypotension 7754 5000 I95.89 Compressio n fracture of lumbar spine 213682704 M48.56XA L2 on CT abd 12/26/22 Coronary arteriosclerosis 39213094 I25.10 last stress test 11/2021 Fibrosis of lung 8846608 1 J84.10 sees pulm every 6 months Cyst of skin 184117977 L 72.9 face Cyst of kidney 976000209 N28.1 on the Lt on CT abd 12/26/22 Gastroesop hageal reflux disease 422877971 K21.9 stable Hernia of anterior abdominal wall 461351045 K43.9 education History of SARS-CoV-2 29 18946056 71318502 Z86.16 05/07/23 Hyperlipidemia 30807088 E78.5 last LDL 03/06/23 Hypogammaglobulinemia 11 5658827 D80.1 on IV every 30 days Hypothyroidism 31049450 E03.9 last TSH 05/10/23 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 0 last DEXA 12/2021 Mixed anxi ety and depressive disorder 877172939 F41.8 No HI , no SI Mixed hyperlipidemia 267 802944 E78.2 last LDL 03/06/23 Neoplasm of pancreas [address] abd 12/26/22 , recheck 1 year Neuropathy 396914164 G62 .9 fair controllas t B12 12/30/20 Nonspecifi c interstitial pneumonitis 199354587 J84.9 sees pulm every 6 months Obstructiv e sleep apnea syndrome 40128936 G47.33 good compliance Osteoarthritis 403674015 M19.90 stable Osteoporosis 45764561 M8 1.0 last DEXA 01/13/22 osteopenia with compressio n Fx Steatotic liver disease 793386082 K76.0 education Tracheobronchomalacia 23 8254626 Q32.2 sees pulm every 6 months Vitamin B1 2 deficiency (non anemic) 74353255 E53.8 last level 05/31/22 Vitamin D deficiency 347 03786 E55.9 last level 03/06/23 Vocal cord dysfunction 980167590 R49.9 just seen ENT 04/18/19 Screening mammography 24 070751 Z12.31 per pt had mammogram 08/2023 Screening for malignant neoplasm of cervix 887485856 Z12.4 per pt had CLINICAL TRIAL SPECIALIST ex 06/2021 Screening for malignant neoplasm of colon 321207762 Z12.11 last C scope 05/23/17 Active or passive immunization 905994605 Z23 per pt had flu shot up to date Advance di rective discussed with patient 906359092 Z71.89 education 606594 Naila Gudino MD [facility] [address] [place] [address] 02/13/2024 11:39:21 02/13/2024 13:30:05 Asthma 920350158 J45.909 sees pulm every 6 months Gastroesop hageal reflux disease without esophagitis 339261261 K21.9 Vitamin B1 2 deficiency (non anemic) 21702365 E53.8 last level 05/31/22 Garrett's esophagus 3029 73461 K22.70 F/U with GI ,last EGD 01/2022 Bipolar disorder 8510512 4 F31.9 sees psych Body mass index 20-24 - normal 336569040 Z68.23 educatione nsure QD Fibrosis of lung 5219176 1 J84.10 sees pulm every 6 months Hyperlipidemia 26941204 E78.5 last LDL 03/06/23 Active or passive immunization 254315163 Z23 per pt had flu shot up to date Dry eyes 661865995 H04.1 23 Long-term drug therapy 676690909 Z79.891 statin 427709 Naila Gudino MD [facility] [address] [place] [address] 05/13/2024 11:16:34 05/13/2024 13:13:44 Interstitial lung disease 899832883 J84.9 per pulm Benign hypertension 1072 5009 I10 good controllas t ophth P 2 weekslast EKG 01/09/23 Bipolar disorder 7454417 4 F31.9 sees psych Body mass index 20-24 - normal 840140481 Z68.23 educatione nsure QD Coronary arteriosclerosis 77796872 I25.10 last stress test 11/2021 Gastroesop hageal reflux disease without esophagitis 347421889 K21.9 stable Hypothyroidism 41134288 E03.9 last TSH 02/13/24 Long-term drug therapy 657446089 Z79.891 statin Mixed hyperlipidemia 267 465894 E78.2 last LDL 03/06/23 Osteoporosis 28500186 M8 1.0 last DEXA 01/13/22 osteopenia with compressio n Fx Screening mammography 24 481980 Z12.31 per pt had mammogram 06/01/2023 Screening for malignant neoplasm of cervix 772393555 Z12.4 per pt had CLINICAL TRIAL SPECIALIST ex 06/2021 Screening for malignant neoplasm of colon 021892318 Z12.11 last C scope 05/23/17 Chronic constipation 236 416405 K59.09 797732 Naila Gudino MD [facility] [place] [address] 06/04/2024 10:44:41 06/04/2024 11:16:14 Liver enzymes level above reference range 829506272 R74.8 Onychomyco sis of toenails 985920132 B35.1 Active or passive immunization 995395947 Z23 per pt had flu shot up to datedeclin e RSV 642293 Naila Gudino MD [facility] [address] [place] [address] 10/11/2024 10:38:03 10/11/2024 12:13:40 Osteoporosis 37549585 M81.0 last DEXA 01/13/22 osteopenia with compressio n Fx Mixed hyperlipidemia 267 869418 E78.2 last LDL 05/13/24 Benign hypertension 1072 5009 I10 good controllas t ophth P 2 weekslast EKG 05/13/24 Coronary arteriosclerosis 97719412 I25.10 last stress test 11/2021 Hypothyroidism 63581048 E03.9 last TSH 02/13/24 Body mass index 20-24 - normal 458323086 Z68.23 educatione nsure QD Vitamin D deficiency 347 97302 E55.9 last level 03/06/23 Vitamin B1 2 deficiency (non anemic) 52990361 E53.8 last level 05/31/22 Garrett's esophagus 3029 91280 K22.70 F/U with GI ,last EGD 01/2022 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 4203566074 [address] 12/26/22 , recheck 1 year Hypogammaglobulinemia 11 9352015 D80.1 on IV every 30 days Neuropathy 122562228 G62 .9 fair controllas t B12 12/30/20 Obstructiv e sleep apnea syndrome 29426606 G47.33 good compliance Screening mammography 24 732972 Z12.31 6104710450 per pt had mammogram 06/01/2023 Cancer cer vix screening status 269229834 Z12.4 413668 per pt had CLINICAL TRIAL SPECIALIST ex 06/2021 Screening for malignant neoplasm of colon 169060605 Z12.11 726662 last C scope 05/23/17 Immunization due 8493008 08 Z23 1163189 per pt had flu shot up to datedeclin e RSV 472804 Naila Gudino MD [facility] [address] [facility] [address] [address] 01/09/2025 10:40:27 01/09/2025 12:16:02 Adult health examination 673383334 Z00.01 3705992 Benign hypertension 1072 5009 I10 good controllas t ophth P 2 weekslast EKG 05/13/24 Coronary arteriosclerosis 14993193 I25.10 last stress test 11/2021 Coronary arteriosclerosis in [place] artery 8242547148 107 I25.10 by history , per pt sees cardiology Dr Vinson @ [place] every yearlast EKG 05/13/24 Mixed hyperlipidemia 267 989453 E78.2 last LDL 10/11/24 Hypothyroidism 21774785 E03.9 last TSH 10/11/24 Long-term current use of drug therapy 428065716 Z79.070 1611233 statin Osteoporosis 12567560 M8 1.0 last DEXA 01/13/22 osteopenia with compressio n Fx Body mass index 20-24 - normal 755721652 Z68.23 educatione nsure QD Vitamin D deficiency 347 70557 E55.9 last level 10/11/24 Vitamin B1 2 deficiency (non anemic) 59179205 E53.8 last level 10/11/24 Vocal cord dysfunction 170925380 R49.9 just seen ENT 04/18/19 Gastroesop hageal reflux disease without esophagitis 709367752 K21.9 stable Garrett's esophagus 3029 41901 K22.70 F/U with GI ,last EGD 01/2022 Chronic constipation 236 957294 K59.09 seeing GI Menopause 056965398 Z78. 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.2 sees pulm every 6 months Asthma 560559143 J45.90 9 sees pulm every 6 months Interstiti al lung disease 830624800 J84.9 per pulm ,Last CT chest 08/06/24 Obstructiv e sleep apnea syndrome 03236845 G47.33 good compliance Steatotic liver disease 626123111 K76.0 education Colitis 09186746 K52.[address] @ [facility] 01/08/26,on Augmentin ,seeing GI Screening mammography 24 224607 Z12.31 6749538849 per pt had mammogram 06/01/2023 Cancer cer vix screening status 606196632 Z12.4 886186 per pt had CLINICAL TRIAL SPECIALIST ex 06/2021 Screening for malignant neoplasm of colon 059491859 Z12.11 390253 last C scope 1/23/18 Immunization due 0886021 08 Z23 7475649 per pt had flu shot up to datedeclin e RSV Counseling 817122351 Z71 .89 367501 education 524071 Naila Gudino MD [facility] [employer] [address] [address] 04/10/2025 11:07:19 04/10/2025 13:16:53 Chronic hypotension 19964502 I95.89 - good control- last ophth 03/2023- BP 2 weeks- last EKG 05/13/24 Coronary arteriosclerosis 78773989 I25.10 last stress test 11/2021 Mixed hyperlipidemia 267 361114 E78.2 - last LDL 10/11/24 Hypothyroidism 04110425 E03.9 - last TSH 01/09/25 Pruritic rash 59460058 L 28.2 - stop hydroxyzin e Osteoporosis 47764999 M8 1.0 - last DEXA 02/24/25 osteopenia with compressio n Fx Vitamin D deficiency 347 59354 E55.9 - last level 10/11/24 Vitamin B1 2 deficiency (non anemic) 95342268 E53.8 - last level 10/11/24 Body mass index 20-24 - normal 443619575 Z68.23 - education- ensure QD Gastroesop hageal reflux disease without esophagitis 866266005 K21.9 - stable- EGD 02/05/25 Osteoarthritis 223915769 M19.90 - stable Asthma 523514916 J45.90 9 - sees pulm every 6 months ,- last PFT 01/10/25 Obstructiv e sleep apnea syndrome 17882233 G47.33 - good compliance Screening procedure 2012 5006 Z13.9 587382 Screening mammography 24 509072 Z12.31 2996941566 per pt had mammogram 06/01/2023 Screening for malignant neoplasm of cervix 568875395 Z12.4 314502 per pt had CLINICAL TRIAL SPECIALIST ex 06/2021 Screening for malignant neoplasm of colon 074942679 Z12.11 960060 - last C scope 05/23/17 Immunization due 0892167 08 Z23 2481785 - per pt had flu shot - up to date- decline RSV Mixed urin matty incontinence 626388297 N39.46 465503 Health Concerns Section Related Observation LastModified by Organization Detai ls LastModified Time None Recorded Concern Status LastModified by Organization Details LastModified Time None Recorded Advance Directives Directive None Recorded Payers Insurance Date Sequence Insurance Name Policy Number Policy Cruz Covered Member ID Cruz Member ID Guarantor Name 04/10/2025 1 [place] Angelia Malone [id number] Angelia Ca 04/07/2025 2 [employer] [place] [id number] Angelia Ca Notes Date Note Type Note Provider Name and Address Organization Details Recorded Time 05/13/2024 text/html Hypertension F/UReported by PatientHPIFor medications, patient reportstaking medications as directedandno side effects from medication. For lifestyle, patient reportsregular exercise,limiting/gordo iding salt, andcompliant with low salt diet. For associated symptoms, patient reportsno dizziness,no lightheadedness,no chest pain,no shortness of breath,no palpitations,no edema,no calf pain with exertion, andno headache. MD Linnea [address], [place], [address], [facility] 05/13/2024 13:06:26 06/04/2024 text/html Hypertension F/UReported by PatientHPIFor medications, patient reportstaking medications as directedandno side effects from medication. For lifestyle, patient reportsregular exercise,limiting/gordo iding salt, andcompliant with low salt diet. For associated symptoms, patient reportsno dizziness,no lightheadedness,no chest pain,no shortness of breath,no palpitations,no edema,no calf pain with exertion, andno headache. MD Candace [facility] [address], [place], [address], [facility] 06/04/2024 11:14:42 10/11/2024 text/html Hypertension F/UReported by PatientHPIFor medications, patient reportstaking medications as directedandno side effects from medication. For lifestyle, patient reportsregular exercise,limiting/gordo iding salt, andcompliant with low salt diet. For associated symptoms, patient reportsno dizziness,no lightheadedness,no chest pain,no shortness of breath,no palpitations,no edema,no calf pain with exertion, andno headache. Naila Gudino MD [address] [facility] [address], [place], [place], [id number], [facility] 10/11/2024 12:09:30 01/09/2025 text/html Medicare Annual Wellness [...] exertion, andno headache. Naila Gudino MD [id number], [place], [id number], [facility] 01/09/2025 12:06:24 04/10/2025 text/html Hypertension F/UReported by PatientHPIFor medications, patient reportstaking medications as directedandno side effects from medication. For lifestyle, patient reportsregular exercise,limiting/gordo iding salt, andcompliant with low salt diet. For associated symptoms, patient reportsno dizziness,no lightheadedness,no chest pain,no shortness of breath,no palpitations,no edema,no calf pain with exertion, andno headache. Naila Gudino MD [id number], [place], [id number], [facility] 04/10/2025 13:12:48 OBGyn Episode No OBEpisode recorded.
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
--- OUTSIDE RECORDS SUMMARY | 2025-04-26 21:31 | XMS_ITS | Clinical Summary ---
Author Organization 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
--- NOTE | 2025-04-26 21:42 | ECG_ITS ---
Test Date: 2025-04-26 22:25:26 Measurements Intervals [place] Rate: 97 P: 21 VT: 143 QRS: -1 QRSD: 88 T: -3 QT: 348 QTc: 442 Interpretive Statements SINUS RHYTHM VOLTAGE CRITERIA FOR LVH BORDERLINE T WAVE ABNORMALITY- ANTEROLAT/INF LEADS BASELINE WANDER- V1 BORDERLINE ECG No previous ECG available for comparison Electronically Signed On 04-27-2025 08:09:10 [employer] by Andrés Amador D.O.
--- NOTE | 2025-04-26 22:01 | ED.WEAKNESS ---
HPI - Weakness General Chief complaint: Weakness Stated complaint: weakness, SOB, fell Time Seen by Provider: 04/26/25 21:48 History of Present Illness HPI Narrative: 80-year-old female with history of interstitial lung disease, atrophic gastritis, hypothyroidism. Patient resides at assisted living facility today. She recently got back from out of town for the holidays and states that she has been progressively weak and not feeling well. She states she has been too weak to even function today and has been crawling around her assisted living facility trying to get up and go to the bathroom, take a shower. She states she has fallen twice today without any significant injuries but did hit her head. States she has been feeling constipated and tried an enema [id number] with some improvement. Patient states she has been progressively weak over few days but her son was at bedside states that this is mostly just developed today when she got home from [place]. States she was fevers at the facility today. Denies any recent medication changes but states she has been missing several doses of her medications including her thyroid hormone while she was out of town. Patient states she feels like she has a cough and short of breath from this. Denies any chest pain, no nausea, vomiting, no abdominal pain. States she did have some diarrhea after the enema today. Endorses a fever but no chills. Related Data Home Medications ?Medication ?Instructions ?Recorded ?Confirmed ?Last Taken ?Type albuterol sulfate 90 mcg/actuation 2 inh inhalation Q4H 12/17/24 02/05/25 02/05/25 History aerosol inhaler (Ventolin HFA) alprazolam 1 mg tablet 1 mg PO TID PRN anxiety 12/17/24 02/05/25 02/05/25 History aspirin 81 mg tablet 81 mg PO DAILY 12/17/24 02/05/25 02/04/25 History cetirizine 10 mg tablet (Allergy 10 mg PO Q12H PRN allergy symptoms 12/17/24 02/05/25 02/04/25 History Relief (cetirizine)) ciclopirox 8 % topical solution 1 applic topical QHS 12/17/24 02/05/25 02/04/25 History cyanocobalamin (vitamin B-12) 100 mcg subcut MONTHLY 12/17/24 02/05/25 02/04/25 History 1,000 mcg/mL injection kit denosumab 60 mg/mL subcutaneous 60 mg subcut [id number] 12/17/24 01/28/25 Unknown History syringe (Prolia) diclofenac sodium 2 % topical ml topical 12/17/24 Unknown History solution in packet ergocalciferol (vitamin D2) 50 mcg 50 mcg PO .every 2 weeks 12/17/24 02/05/25 02/04/25 History (2,000 unit) capsule ezetimibe 10 mg tablet 10 mg PO DAILY 12/17/24 02/05/25 02/04/25 History famotidine 40 mg tablet 40 mg PO QHS 12/17/24 02/05/25 02/04/25 History fluticasone propionate 50 1 inh inhalation Q12H 12/17/24 02/05/25 02/04/25 History mcg/actuation blister powder for inhalation isosorbide mononitrate 60 mg 60 mg PO DAILY 12/17/24 02/05/25 02/04/25 History tablet,extended release 24 hr levothyroxine 88 mcg capsule 88 mcg PO DAILY 12/17/24 02/05/25 02/04/25 History montelukast 10 mg tablet 10 mg PO DAILY 12/17/24 02/05/25 02/04/25 History nitroglycerin 0.4 mg sublingual 0.4 mg sublingual Q5M PRN chest 12/17/24 01/28/25 Unknown History tablet pain ondansetron HCl 4 mg tablet 4 mg PO Q8H 12/17/24 01/28/25 Unknown History pantoprazole 40 mg tablet,delayed 40 mg PO QAM 12/17/24 02/05/25 02/04/25 History release pregabalin 75 mg capsule 75 mg PO BID 12/17/24 02/05/25 02/04/25 History rosuvastatin 40 mg tablet 40 mg PO DAILY 12/17/24 02/05/25 02/04/25 History sennosides 8.6 mg-docusate sodium 2 tab-cap PO QHS 12/17/24 02/05/25 02/04/25 History 50 mg tablet sertraline 100 mg tablet 100 mg PO DAILY 12/17/24 02/05/25 02/04/25 History syringe with needle, safety 3 mL 08/19/25 Unknown History 25 gauge x 1 (BD Integra Syringe) Allergies Allergy/AdvReac Type Severity Reaction Status Date / Time codeine Allergy Mild Unknown Verified 02/25/25 11:03 nitrofurantoin Allergy Mild Unknown Verified 02/05/25 11:27 oxcarbazepine Allergy Mild Unknown Verified 02/05/25 11:27 Review of Systems Review of Systems: As reviewed above in HPI All systems reviewed & are unremarkable except as noted in HPI and below PMFSH Past Medical History Medical History Bipolar disorder Hypothyroidism High cholesterol Depression Anxiety Neuropathic pain Social History Social History Smoking status: Former smoker Tobacco type: cigarettes Smoking end date: 05/01/73 Alcohol intake: former Substance use: never Substance use type: does not use Living arrangements: assisted living Spiritual care concerns: No Exam Narrative: GENERAL: Ill-appearing but not any distress. Globally weak without any lateralizing symptoms. HEAD: [Normocephalic, atraumatic.] EYES: [PERRLA and EOMI.] ENT: Nares clear, no rhinorrhea or epistaxis. Mucous membranes dry. NECK: Supple. CHEST: No respiratory distress, clear to auscultation HEART: [Regular rate and rhythm]. No murmur heard. [Normal peripheral pulses.] ABDOMEN: [Soft, nondistended], [nontender], [No rigidity or guarding] EXTREMITIES: Normal range of motion. [No edema.] SKIN: Warm, dry, no rash. NEURO: Globally weak but no lateralizing symptoms or drift in the arms or legs. No ataxia or facial asymmetry. No slurring speech. PSYCH: [Normal mood and affect.] Course Vital Signs Vital signs: Vital Signs Pulse Rate 97 04/26/25 22:19 Temperature 37.5 C 04/26/25 22:20 Pulse Rate 91 04/27/25 03:26 Respiratory Rate 32 H 04/27/25 03:26 Blood Pressure 110/45 L 04/27/25 03:26 Pulse Oximetry 100 04/27/25 03:26 Oxygen Delivery Nasal Cannula 04/27/25 02:01 Oxygen Flow Rate 1 04/27/25 02:01 [facility] MDM Narrative Medical decision making narrative: 80-year-old female with history of interstitial lung disease, atrophic gastritis, hypothyroidism. Patient resides at assisted living facility today. She recently got back from out of town for the holidays and states that she has been progressively weak and not feeling well. She states she has been too weak to even function today and has been crawling around her assisted living facility trying to get up and go to the bathroom, take a shower. She states she has fallen twice today without any significant injuries but did hit her head. States she has been feeling constipated and tried an enema [id number] with some improvement. Patient states she has been progressively weak over few days but her son was at bedside states that this is mostly just developed today when she got home from [place]. States she was fevers at the facility today. Denies any recent medication changes but states she has been missing several doses of her medications including her thyroid hormone while she was out of town. Patient states she feels like she has a cough and short of breath from this. Denies any chest pain, no nausea, vomiting, no abdominal pain. States she did have some diarrhea after the enema today. Endorses a fever but no chills. Patient appears ill and globally weak but not any apparent physical distress. She has an unremarkable neurological examination. Clear breath sounds throughout, strong pulses. Does appear dehydrated. Symptoms vague at this time but she does have risk factors including interstitial lung disease making her prone to infectious pathology such as pneumonia. She has missed several doses of her medications a could be medication related secondary to missed levothyroxine, possibility of some dehydration versus electrolyte imbalances. Possibility of infectious pathology such as COVID flu from her recent travel. Given the falls and generalized weakness will after rule out intracranial pathology as well. Laboratory studies and CT of the head abdomen pelvis were obtained. She was given a fluid bolus and re-evaluated. EKG obtained. Placed on personnel monitor. Chest x-ray appears to have some interstitial pattern with no overt evidence of pneumonia. Given patient's hypoxemia without obvious chest x-ray pathology will obtain CT angiography with PE protocol. Given a dose of albuterol and Atrovent nebulization to see if that helps. Patient remains hemodynamically stable with still requiring oxygen after interventions. Mild leukocytosis 13.3. Normal hemoglobin. Normal platelet count. Electrolytes unremarkable. Normal creatinine. Normal glucose. LFTs at baseline. TSH normal negative viral screen. CT scan of the head shows chronic small vessel disease, no acute infarct or hemorrhage. CTA of the chest shows no pulmonary embolism, bronchiectasis is seen with fibrotic lung changes more prominent than prior. No pneumothorax or pleural effusions. Mild coronary calcifications, CT of the abdomen pelvis shows some constipation and dilated urinary bladder but overall no acute infectious pathology. Patient did have some difficulty urinating in a straight catheterization and Waite catheter was inserted afterwards with 1200 cc of urine drained. Urinalysis pending but she has no urinary complaints at this time. Possibility of some constipation induced obstruction. Given patient's oxygen requirements she will be admitted to the hospital for further evaluation and treatment. Discussed with the hospitalist and patient was placed on to a telemetry monitored bed for admission. Differential Diagnosis Differential Diagnosis: Symptoms vague at this time but she does have risk factors including interstitial lung disease making her prone to infectious pathology such as pneumonia. She has missed several doses of her medications a could be medication related secondary to missed levothyroxine, possibility of some dehydration versus electrolyte imbalances. Possibility of infectious pathology such as COVID flu from her recent travel. Given the falls and generalized weakness will after rule out intracranial pathology as well. Lab Data MDM Lab Attestation statement: I personally reviewed the patient's lab results. 04/26/25 22:45 04/26/25 22:45 Labs: Lab Results 04/26/25 04/26/25 04/27/25 Range/Units 22:45 22:46 00:54 WBC 13.3 H (4.5-10.0) K/mm3 RBC 4.48 (4.2-5.4) M/mm3 Hgb 12.1 (12.0-15.0) g/dL Hct 37.6 (37.0-47.0) % MCV 83.9 (80-100) fl MCH 27.0 (26-34) pg MCHC 32.2 (32-36) g/dl RDW 13.3 (11.5-14.5) % Plt Count 213 (150-375) k/mm3 MPV 10.5 H (7.4-10.4) fl Immature Gran % (Auto) 0.3 (0-0.5) % Neut % (Auto) 79.5 H (45.5-73.1) % Lymph % (Auto) 10.0 L (18.3-44.2) % [place] % (Auto) 8.3 (2.6-8.5) % Eos % (Auto) 1.5 (0-4.4) % Baso % (Auto) 0.4 (0.2-1.2) % Lymph # (Auto) 1.33 (0.9-3.2) K/mm3 [place] # (Auto) 1.1 H (0.1-0.6) K/mm3 Eos # (Auto) 0.2 (0-0.3) K/mm3 Baso # (Auto) 0.1 (0.0-0.1) K/mm3 Abs Immat Gran (auto) 0.04 H (0.00-0.031) K/mm3 Absolute Neuts (auto) 10.6 H (1.3-6.7) K/mm3 Absolute Nucleated RBC 0.000 (0.0-0.012) K/mm3 Nucleated RBC % 0.0 (0.0-0.2) % Sodium 137 (137-145) mmol/L Potassium 3.6 (3.4-5.0) mmol/L Chloride 102 (98-107) mmol/L Carbon Dioxide 31 H (22-30) mmol/L Anion Gap 4 (4-12) mmol/L BUN 8 (7-17) mg/dL Creatinine 0.60 L (0.7-1.0) mg/dL Estim Creat Clear Calc 52 ml/min Estimated GFR > 60 (59 - ) Glucose 110 (65-110) mg/dL Calcium 8.4 (8.4-10.2) mg/dL Magnesium 1.7 (1.6-2.3) mg/dL Total Bilirubin 0.5 (0.2-1.3) mg/dL AST 39 H (14-36) U/L ALT 22 (6-35) U/L Alkaline Phosphatase 57 (38-126) U/L Total Protein 7.1 (6.3-8.2) g/dL Albumin 3.9 (3.5-5.1) g/dL TSH (Reflex) 4.790 H (0.465-4.68) uIU/mL Free T4 0.95 (0.78-2.19) ng/dL Total T3 0.94 (0.82-1.58) NG/ML Urine Color Yellow (Yellow) Urine Appearance Clear (Clear) Urine pH 6.0 (5.0-9.0) Ur Specific [place] 1.009 (1.001-1.035) Urine Protein Negative (Negative) mg/dL Urine Glucose (UA) Negative (Negative) mg/dL Urine Ketones Negative (Negative) mg/dL Ur Blood (Man) Negative (Negative) Urine Nitrate Negative (Negative) Urine Bilirubin Negative (Negative) Urine Urobilinogen 1.0 (<2.0) mg/dL Leukocyte Esterase Rfl Negative (Negative) HEMA/UL Influenza A (RT-PCR) Negative (Negative) Influenza B (RT-PCR) Negative (Negative) RSV (RT-PCR) Negative (Negative) SARS-CoV-2 RNA (RT-PCR) Negative (Negative) Imaging Data Attestation: I personally reviewed and interpreted this imaging study as follows: My impression: Bronchiectasis, worse than prior, no pneumothorax or pneumonia. No pleural effusions. Critical Care Time Critical Care Time Critical Care Time: Yes Indication: Hypoxemia requiring oxygen supplementation Time Type: Intermittent Initial evaluation, discuss w/ involved parties, attempting to gather old records: 10 minutes Documenting medical record: 5 minutes Review of results (EKG's, labs, imaging): 5 minutes Serial repeat bedside evaluation: 10 minutes Discussing case with multiple memebers of the care team and consultants: 5 minutes Total Critical Care Time: 35 Discharge Plan Discharge Clinical Impression: Acute and chronic respiratory failure with hypoxia, Bronchiectasis, Urinary retention, Generalized weakness, Hypoxemia requiring supplemental oxygen Patient Disposition: Still a Patient Condition: Stable Time of Disposition: 01:40
--- OUTSIDE RECORDS SUMMARY | 2025-04-26 22:31 | XMS_ITS | Clinical Summary ---
Author Organization [facility] Address [address] [place] [address] Care Team Providers Care Plastering Supervisor Name Role Phone Noel Gomez DO Primary Care Provider [phone] Source Comments [facility],non-owned Affiliates and Associated Physician Practices is amultiple site organization consisting of ambulatory clinics and hospital sitesin [place], [place], [place] and [place]. This disclosure is being madepursuant to the Care Everywhere program and may not contain all information available regarding this patient. Last updated 18.[facility] Allergies Active Allergy Reactions Criticality Noted Date [...] Department Care Team Description 02/11/2025 Lab Requisition [facility] - Pathology Lab [address] [place] [address] Tyson Main MD Illness, unspecified from Last [...] on file Legal Sex Female 6:15 AM MASTER OF CEREMONIES Gender Identity Not on file Sexual Orientation Not on file Last Filed Vital Signs Vital Sign Reading Time Taken Comments Blood Pressure 124/70 06/12/2013 1:29 PM MASTER OF CEREMONIES Pulse 86 07/03/2012 4:20 PM MASTER OF CEREMONIES Temperature 36.6 C (97.8 F) 07/03/2012 4:20 PM MASTER OF CEREMONIES Respiratory Rate 18 07/03/2012 4:20 PM MASTER OF CEREMONIES Oxygen Saturation 99% 07/03/2012 4:20 PM MASTER OF CEREMONIES Inhaled Oxygen Concentration - - Weight 60.8 kg (134 lb) 06/12/2013 1:29 PM MASTER OF CEREMONIES Height 157.5 cm (5' 2) 06/12/2013 1:29 PM MASTER OF CEREMONIES Body Mass Index 24.51 06/12/2013 1:29 PM MASTER OF CEREMONIES Plan of Treatment Health Maintenance Due Date [...] this topic Medical Devices Implanted Type Area Lighter Captain Device Identifier Shelf Expiration Date Model / Serial / Lot Slng Lynx Mid-Ureth Implanted:Qty: 1 on 07/03/2012 by Erika Hernández MD at [facility] N/A: Pelvis Bacterioscan Scimed 03/31/2015 [id number] / / [id number] Procedures Procedure Name Priority Date/Time Associated Diagnosis Comments SLIDE PREP HISTOLOGY Routine 02/11/2025 12:54 PM CDT Illness, unspecified from Last 3 Months Results * SLIDE PREP HISTOLOGY (02/11/2025 12:54 PM CDT) Client Specimen ID # [id number] 03/05/2025 4:13 PM [facility] Number of Blocks Received 0 03/05/2025 4:13 PM [facility] Number of Slides 1 03/05/2025 4:13 PM [facility] Number of Control Slides 1 03/05/2025 4:13 PM [facility] Pathology/Cytolo gy ENTIRE STOMACH / Unknown 02/11/2025 12:54 PM CDT 02/11/2025 12:57 PM CDT Tyson Mani MD LAB - PATHOLOGY/CYTOLOGY ORDERAB LES Final Result [facility] [address] [place] [address], [facility] [phone] from Last 3 Months Insurance MEDICARE [facility] [place] [id number] SELF PAY NO INSURANCE Member Subscriber Plan / Payer (Ef fective for All Dates) Name:Angelia Ca Navid Member ID:Not on file Relation to Subscriber:Not on file Name:ANGELIA CA Navid Subscriber ID:Not on file (Home) Address: [address] [place] [id number] Payer ID:Not on file Group ID:Not on file Type:Self Pay Address: [place], [place] MEDICARE [facility] Care Teams Plastering Supervisor Relationship Specialty Start Date End Date Noel Gomez DO PCP - General Internal Medicine 07/03/12
--- OUTSIDE RECORDS SUMMARY | 2025-04-26 22:31 | XMS_ITS | Encounter Summary ---
Author Organization [facility] Address [address] [place] [address] Care Team Providers Care Vp Marketing Services And Skin Name Role Phone Naila Marroquin MD Primary Care Provider [phone] Encounter Details Date Type Department Care Team (Late st Contact Info) Description 01/11/2023 Therapy Plan [facility] In[facility] [address] [place] [address] Naila Marroquin MD [address] [place] [id number] Social History Tobacco Use Types Packs/Day Years [...] unspecified documented in this encounter Care Teams Vp Marketing Services And Skin Relationship Specialty Start Date End Date Naila Marroquin MD PCP - General 11/25/16 documented as of this encounter
--- OUTSIDE RECORDS SUMMARY | 2025-04-26 22:31 | XMS_ITS | Encounter Summary ---
Author Organization [facility] Address [address] [address] Care Team Providers Care Character Artist Name Role Phone Debora Fitch MD Primary Care Provider Miscellaneous, Not In File Primary Care Provider Unavailable Debora Fitch MD Primary Care Provider Naila Marroquin MD Primary Care Provider [phone] Debora Fitch MD Primary Care Provider Naila Marroquin MD Primary Care Provider Debora Fitch MD Primary Care Provider [phone] Naila Marroquin MD Primary Care Provider Debora Fitch MD Primary Care Provider [phone] Naila Marroquin MD Primary Care Provider Debora Fitch MD Primary Care Provider Naila Marroquin MD Primary Care Provider Debora Fitch MD Primary Care Provider Naila Marroquin MD Primary Care Provider Debora Fitch MD Primary Care Provider Naila Marroquin MD Primary Care Provider [phone] Debora Fitch MD Primary Care Provider [phone] Naila Marroquin MD Primary Care Provider [phone] Janine Bañuelos RN Unavailable UnaJohn Paul Sawant MD Unavailable [phone] Sindy Armstrong RN Unavailable Darlene vailable Encounter Details Date Type Department Care Team (Late st Contact Info) Description 06/03/2016 Orders Only [facility] Provider, MD Sherif [address] [place] [address] Social History Tobacco Use Types Packs/Day Years Used Date Smoking Tobacco: Former Cigarettes Q uit: 05/01/1974 Alcohol Use Standard Drinks/Week Comments Yes 0 (1 standard drink = 0.6 oz pur e alcohol) Comments Unknown Sex and Gender Information Value Date Recorded Sex Assigned at Not on file Legal Sex Female 8:29 PM RN ACCESS Gender Identity Female 09/24/2021 1:08 PM CDT [...] COVID: Suspected 05/28/2021 05/28/2021 05/28/2021 3:42 PM RN ACCESS COVID: Suspected 01/24/2023 01/24/2023 01/24/2023 1:28 AM CDT COVID: Suspected 01/24/2023 01/25/2023 01/25/2023 11:46 AM CDT COVID19 Comment:COVID + on home test. Symptoms started 3 days ago. 05/06/2023 05/06/2023 05/16/2023 3:05 AM RN ACCESS COVID: Recovered Comment:Added based on recent COVID infection. 05/16/2023 05/23/2023 08/14/2023 3:05 AM C DT documented as of this encounter Care Teams Character Artist Relationship Specialty Start Date End Date Debora Fitch MD [address] [address] PCP - General 08/19/16 11/03/16 Miscellaneous, Not In File PCP - General 11/04/16 11/07/16 Debora Fitch MD [address] [address] PCP - General 11/08/16 11/17/16 Naila Marroquin MD [address] [place] [address] PCP - General 11/18/16 11/21/16 Debora Fitch MD [address] [address] PCP - General 11/22/16 11/22/16 Naila Marroquin MD [address] [place] [address] PCP - General 11/23/16 11/26/16 Debora Fitch MD [address] [address] PCP - General 11/27/16 01/03/17 Naila Marroquin MD [address] [place] [address] PCP - General 01/04/17 01/26/17 Debora Fitch MD [address] [facility] [place] [address] PCP - General 01/27/17 02/06/17 Naila Marroquin MD [address] [place] [address] PCP - General 02/07/17 02/13/17 Debora Fitch MD [address] [address] PCP - General 02/14/17 04/04/17 Naila Marroquin MD [address] [place] [address] PCP - General 04/05/17 04/05/17 Debora Fitch MD [address] [facility] [address] [address] PCP - General 04/06/17 05/18/17 Naila Marroquin MD [address] [place] [address] PCP - General 05/19/17 06/11/17 Debora Fitch MD [address] [address] PCP - General 06/12/17 06/14/17 Naila Marroquin MD [address] [place] [address] PCP - General 06/15/17 07/12/17 Debora Fitch MD [address] [facility] [address] [place] [address] PCP - General 07/13/17 07/20/17 Naila Marroquin MD [address] [place] [address] PCP - General 07/21/17 Janine Bañuelos, box truck owner operator Nurse 08/02/18 John Paul Springer MD Consulting Physician Orthopedic Surgery 12/05/19 Sindy Armstrong, ALEXANDRA Registered Nurse Pulmonary Disease 03/23/22 documented as of this encounter
--- OUTSIDE RECORDS SUMMARY | 2025-04-26 22:31 | XMS_ITS | Clinical Summary ---
Author Organization [facility] Address [address] [place] [address] Care Team Providers Care Content Management Specialist Name Role Phone Naila Marroquin MD Primary Care Provider [phone] Allergies Active Allergy Reactions Criticality Noted Date [...] patient's age to complete this topic Insurance [facility] MEDICARE Care Teams Content Management Specialist Relationship Specialty Start Date End Date Naila Marroquin MD PCP - General 11/25/16
--- OUTSIDE RECORDS SUMMARY | 2025-04-26 22:32 | XMS_ITS | Encounter Summary ---
Author Organization 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 Symptoms started 3 days ago. 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 05/16/2023 05/23/2023 08/14/2023 3:05 AM C DT documented as of this encounter Care Teams Pad Extractor Tender Relationship Specialty Start Date End Date Naila Marroquin MD [address] [place] [address] PCP - General 07/21/17 Janine Bañuelos, auto damage insurance appraiser Nurse 08/02/18 John Paul Springer MD Consulting Physician Orthopedic Surgery 12/05/19 Sindy Armstrong, RN Registered Nurse Pulmonary Disease 03/23/22 documented as of this encounter
--- OUTSIDE RECORDS SUMMARY | 2025-04-26 22:32 | XMS_ITS | Clinical Summary ---
Author Organization [facility] Address [address] [place] [address] Care Team Providers Care Manager Recruiting Name Role Phone Naila Marroquin MD Primary Care Provider [phone] Janine Bañuelos RN Unavailable Unajose martini John Paul David MD Unavailable [phone] Sindy Armstrong RN Unavailable Darlene vailable Allergies [...] (06/12/2020): Added automatically from request for surgery [id number] Hallux valgus of left foot 11/05/2019 Overview (11/05/2019): Added automatically from request for surgery [id number] Non-allergic rhinitis 01/02/2018 Seasonal allergic rhinitis due [...] TRAN (dyspnea on exertion) 04/06/2015 Overview (08/04/2016): RTAN (dyspnea on exertion) 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 ([facility]) 04/06/2015 Overview (08/04/2016): 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 Irregular heart rhythm 04/06/2015 Overview (08/04/2016): Irregular heart beat Hypogammaglobulinemia 11/20/2014 Overview (10/25/2019): Hypogammaglobulinemia Depression 10/21/2014 Overview (08/04/2016): Depression ILD (interstitial lung disease) 06/26/2014 Resolved Problems Problem Noted Date Diagnosed Date Resolved Date CAP (community acquired pneumonia) 01/24/2023 07/19/2023 Cough 04/18/2019 11/21/2020 Assessment & Plan (04/18/2019 2:04 PM RADIO DISC JOCKEY): The patient has chronic cough is likely [...] (07/04/2018): Added automatically from request for surgery [id number] Gastroesophageal reflux dise ase with esophagitis 04/02/2018 11/21/2020 Overview (04/02/2018): Added automatically from request for surgery [id number] 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 04/02/2018 11/21/2020 Overview (04/02/2018): Added automatically from request for surgery [id number] Pain of right lower extremity 10/02/2017 11/21/2020 [...] Department Care Team Description 04/02/2025 12:30 PM RADIO DISC JOCKEY Infusion [facility] [address] [place] [address] 2 [address] [place] [address] Hypogammaglobulinemia (Primary Dx) 03/21/2025 Telephone [facility] [address] [facility] 8th [place] [address] [place] [address] Sindy Armstrong, ALEXANDRA 03/20/2025 Telephone [facility] [address] [facility] 8th [place] [address] [place] [address] Sindy Armstrong, ALEXANDRA 03/20/2025 Orders Only [facility] [address] [facility] 8th [place] [address] [place] [address] Lesli Richard MD ILD (interstitial lung disease) (HCC) (Primary Dx) 03/05/2025 12:30 PM RADIO DISC JOCKEY Infusion [facility] [address] [place] [address] [address] [place] [address] Hypogammaglobulinemia (Primary Dx) 02/04/2025 12:30 PM CDT Infusion [facility] [address] [facility] Building [address] [place] [address] Hypogammaglobulinemia (Primary Dx) from Last [...] often do you attend chur ch or denominational services? Never 01/25/2023 Do you belong to [...] on file Legal Sex Female 8:29 PM RADIO DISC JOCKEY Gender Identity Female 09/24/2021 1:08 PM CDT [...] Comments Blood Pressure 107/68 04/02/2025 12:45 PM RADIO DISC JOCKEY Pulse 76 04/02/2025 12:45 PM RADIO DISC JOCKEY Temperature 36.7 C (98 F) 04/02/2025 12:45 PM RADIO DISC JOCKEY Respiratory Rate 20 10/31/2023 10:21 AM CDT [...] history exists Medical Devices Implanted Type Area Oven Worker Device Identifier Shelf Expiration Date Model / Serial / Lot Nerve Stimulator-Righ t Hip Description:Not active [employer] [id number] Bit 2.5mm Drill Cannulated Ao Quick Connect Color Coded - [id number] Implanted:Qty: 1 on 12/05/2019 at [facility] Left: Foot [employer] [id number] / / [employer] [id number] Screw Bone Medline Unite L18mm Od3.5mm Foot Ankle Nonlock - [id number] Implanted:Qty: 1 on 12/05/2019 by John Paul Springer MD at [facility] [employer] [id number] / / [employer] [id number] Screw Bone Medline Unite L38mm Od3.5mm Head Nonsterile - [id number] Implanted:Qty: 1 on 12/05/2019 by John Paul Springer MD at [facility] Left: Foot [employer] [id number] / / Explanted Type Area Oven Worker Device Identifier Shelf Expiration Date Model / Serial / Lot [employer] [id number] Screw Bone Medline Unite L12mm Od2.7mm Foot Ankle Nonlock - [id number] Implanted:Qty: 1 Explanted:Qty: 1 on 12/05/2019 at [facility] Left: Foot [employer] [id number] / / [employer] [id number] Screw Bone Medline Unite L14mm Od2.7mm Foot Ankle Nonlock - [id number] Explanted:Qty: 1 on 12/05/2019 at [facility] Left: Foot [employer] [id number] / / [employer] [id number] Pin Fixation Medline Unite L10mm Od1.1mm - [id number] Implanted:Qty: 2 on 12/05/2019 at [facility] Explanted:Qty: 2 on 06/23/2020 at [facility] Left: Foot [employer] [id number] / / [employer] [id number] Plate Bone Medline Unite 5 D Medium Metatarsophalangeal Left Fusion Nonsterile - [id number] Implanted:Qty: 1 on 12/05/2019 by John Paul Springer MD at [facility] Explanted:Qty: 1 on 06/23/2020 at [facility] Left: Foot [employer] [id number] / / [employer] [id number] Screw 16mm 2.7mm Bone Medline Unite Foot Ankle Lock - [id number] Implanted:Qty: 1 on 12/05/2019 by John Paul Springer MD at [facility] Explanted:Qty: 1 on 06/23/2020 at [facility] Left: Foot [employer] [id number] / / [employer] [id number] Screw 12mm 3.5mm Bone Medline Unite Foot Ankle Lock - [id number] Implanted:Qty: 1 on 12/05/2019 by John Paul Springer MD at [facility] Explanted:Qty: 1 on 06/23/2020 at [facility] Left: Foot [employer] [id number] / / [employer] [id number] Screw 18mm 3.5mm Bone Medline Unite Foot Ankle Lock - [id number] Implanted:Qty: 3 on 12/05/2019 by John Paul Springer MD at [facility] Explanted:Qty: 3 on 06/23/2020 at [facility] Left: Foot [employer] [id number] / / Procedures Procedure Name Priority Date/Time Associated Diagnosis Comments SCREENING MAMMOGRAM BILATERAL W DONY Schedule Routine, Read Routine (OP Routine) 06/01/2023 12:25 PM RADIO DISC JOCKEY Screening mammogram, encounter for DEXA AXIAL SKELETON BONE DENSITY 1 OR MORE SITES Schedule Routine, Read Routine (OP Routine) 01/13/2022 1:17 PM CDT Asymptomatic menopausal state COLONOSCOPY REPORT 05/23/2017 from Last 3 Months or Most Recently Relevant to Health Maintenance Results * Screening Mammogram Bilateral W Dony (06/01/2023 12:25 PM RADIO DISC JOCKEY) Anatomical Region Laterality Modality Breast Bilateral Mammography Impressions 06/01/2023 1:40 PM RADIO DISC JOCKEY BI-RADS ATLAS category (overall): 2 - Benign There is no mammographic evidence of malignancy. A 1 year screening mammogram is recommended. The patient has been or will be contacted. We recommend annual screening mammography for women at average risk of breast cancer beginning at age 40, based on guidelines of the [employer] (ACR Practice Parameter for the Performance of Screening and Diagnostic Mammography) and [employer]. For women with and elevated risk of breast cancer, please refer to the ACR Practice Parameter for specific screening recommendations. The patient will be entered into a reminder system with a target due date of 1 year for her next screening exam. Narrative 06/01/2023 1:40 PM RADIO DISC JOCKEY Screening Mammogram Bilateral W Dony: 06/01/23 The [...] F with given history of screening. Postmenopausal Oven Worker/Model: SurveyMonkey A (S/N [id number]) CLINICAL INFORMATION: Current height: 61 inches Maximum [...] Sriram Casiano M.D. MF: VICTORINO Report ID: [id number] Reading Location: [id number] Procedure Note Sriram Casiano MD - 01/13/2022 EXAM DESCRIPTION: DEXA AXIAL SKELETON BONE DENSITY 1 OR MORE SITES REASON FOR STUDY: 77 y/o year old F with given history ofscreening. Postmenopausal Oven Worker/Model: SurveyMonkey A (S/N [id number]) CLINICAL INFORMATION: Current height: 61 inches Maximum [...] Sriram Casiano M.D. MF: VICTORINO Report ID: [id number] Reading Location: [id number] Naila Marroquin MD IMG DXA PROCEDURES Final R esult * COLONOSCOPY REPORT (05/23/2017) Anatomical Region Laterality Modality Other Provider Scanning GI PROCEDURE ORDERABLES Final Result from Last 3 Months or Most Recently Relevant to Health Maintenance Insurance [facility] MEDICARE MEDICARE [facility] MEDICARE [facility] MEDICARE [facility] MEDICARE [facility] Advance Directives For more information, please contact: [phone] * Full Code (Latest Code Status on [...] AM 06/05/2018 3:17 PM Care Teams Manager Recruiting Relationship Specialty Start Date End Date Naila Marroquin MD [address] [facility] [address] [place] [address] PCP - General 07/21/17 Janine Bañuelos, solar energy technician Nurse 08/02/18 John Paul Springer MD Consulting Physician Orthopedic Surgery 12/05/19 Sindy Armstrong, ALEXANDRA Registered Nurse Pulmonary Disease 03/23/22
--- OUTSIDE RECORDS SUMMARY | 2025-04-26 22:32 | XMS_ITS | Encounter Summary ---
Author Organization [facility] Address [address] [facility] [place] [address] Care Team Providers Care Hot Iron Worker Name Role Phone Noel Gomez DO Primary Care Provider [phone] Encounter Details Date Type Department Care Team (Late st Contact Info) Description 02/11/2025 Lab Requisition [facility] - Pathology Lab [address] [place] [address] Tyson Main MD [address] [place] [address] Illness, unspecified Social History Tobacco Use Types Packs/Day Years Used Date Smoking Tobacco: Former Cigarettes 0 Q uit: 06/06/1974 Alcohol Use Standard Drinks/Week Comments Yes 0 (1 standard drink = 0.6 oz pur e alcohol) Comments No Sex and Gender Information Value Date Recorded Sex Assigned at Not on file Legal Sex Female 6:15 AM SECURITY INCIDENT HANDLER Gender Identity Not on file Sexual Orientation Not on file documented as of this encounter Plan of Treatment Not on file documented as of this encounter Procedures Procedure Name Priority Date/Time Associated Diagnosis Comments SLIDE PREP HISTOLOGY Routine 02/11/2025 12:54 PM CDT Illness, unspecified documented in this encounter Results * SLIDE PREP HISTOLOGY (02/11/2025 12:54 PM CDT) Client Specimen ID # [id number] 03/05/2025 4:13 PM SECURITY INCIDENT HANDLER [facility] PATH[facility] Number of Blocks Received 0 03/05/2025 4:13 PM [facility] PATHOLOGY LAB Number of Slides 1 03/05/2025 4:13 PM [facility] Number of Control Slides 1 03/05/2025 4:13 PM [facility] LAB Pathology/Cytolo gy ENTIRE STOMACH / Unknown 02/11/2025 12:54 PM CDT 02/11/2025 12:57 PM CDT Tyson Main MD LAB - PATHOLOGY/CYTOLOGY ORDERAB LES Final Result [facility] PATHOLOGY LAB [address] [phone] documented in this encounter Visit Diagnoses Diagnosis Illness, unspecified documented in this encounter Care Teams Hot Iron Worker Relationship Specialty Start Date End Date Noel Gomez DO PCP - General Internal Medicine 07/03/12 documented as of this encounter
--- OUTSIDE RECORDS SUMMARY | 2025-04-26 22:32 | XMS_ITS | Encounter Summary ---
Author Organization [facility] Address [address] [place] [address] Phone Care Team Providers Care Sock Examiner Name Role Phone Debora Fitch MD Primary Care Provider [phone] Naila Marroquin MD Primary Care Provider [phone] Debora Fitch MD Primary Care Provider [phone] Naila Marroquin MD Primary Care Provider [phone] Debora Fitch MD Primary Care Provider [phone] Naila Marroquin MD Primary Care Provider [phone] Debora Fitch MD Primary Care Provider [phone] Naila Marroquin MD Primary Care Provider [phone] Debora Fitch MD Primary Care Provider [phone] Naila Marroquin MD Primary Care Provider [phone] Janine Bañuelos RN Unavailable John Paul Lucas MD Unavailable [phone] Sindy Armstrong RN Unavailable Darlene vailable Encounter [...] on file Legal Sex Female 8:29 PM BALING MACHINE OPERATOR Gender Identity Female 09/24/2021 1:08 [...] COVID: Suspected 05/28/2021 05/28/2021 05/28/2021 3:42 PM BALING MACHINE OPERATOR COVID: Suspected 01/24/2023 01/24/2023 01/24/2023 1:28 AM CDT COVID: Suspected 01/24/2023 01/25/2023 01/25/2023 11:46 AM CDT COVID19 Comment:COVID + on home test. Symptoms started 3 days ago. 05/06/2023 05/06/2023 05/16/2023 3:05 AM BALING MACHINE OPERATOR COVID: Recovered Comment:Added based on recent COVID infection. 05/16/2023 05/23/2023 08/14/2023 3:05 AM C DT documented as of this encounter Care Teams Sock Examiner Relationship Specialty Start Date End Date Debora Fitch MD [address] [facility] [address] [place] [address] PCP - General 01/27/17 02/06/17 Naila Marroquin MD [address] [place] [address] PCP - General 02/07/17 02/13/17 Debora Fitch MD [address] [address] PCP - General 02/14/17 04/04/17 Naila Marroquin MD [address] [place] [address] PCP - General 04/05/17 04/05/17 Debora Fitch MD [address] [facility] [address] [address] PCP - General 04/06/17 05/18/17 Naila Marroquin MD [address] [place] [address] PCP - General 05/19/17 06/11/17 Debora Fitch MD [address] [facility] [address] [address] PCP - General 06/12/17 06/14/17 Naila Marroquin MD [address] [place] [address] PCP - General 06/15/17 07/12/17 Debora Fitch MD [address] [address] PCP - General 07/13/17 07/20/17 Naila Marroquin MD [address] [facility] [address] [place] [address] PCP - General 07/21/17 Janine Bañuelos, shipping/receiving manager Nurse 08/02/18 John Paul Springer MD Consulting Physician Orthopedic Surgery 12/05/19 Sindy Armstrong, RN Registered Nurse Pulmonary Disease 03/23/22 documented as of this encounter
--- OUTSIDE RECORDS SUMMARY | 2025-04-26 22:32 | XMS_ITS | Encounter Summary ---
Author Organization [facility] Address [address] [address] Care Team Providers Care Insole Cementer Name Role Phone Debora Fitch MD Primary Care Provider Miscellaneous, Not In File Primary Care Provider Unavailable Debora Fitch MD Primary Care Provider Naila Marroquin MD Primary Care Provider [phone] Debora Fitch MD Primary Care Provider [phone] Naila Marroquin MD Primary Care Provider Debora Fitch MD Primary Care Provider Naila Marroquin MD Primary Care Provider Debora Fitch MD Primary Care Provider [phone] Naila Marroquin MD Primary Care Provider Debora Fitch MD Primary Care Provider Naila Marroquin MD Primary Care Provider Debora Fitch MD Primary Care Provider Naila Marroquin MD Primary Care Provider Debora Fitch MD Primary Care Provider [phone] Naila Marroquin MD Primary Care Provider [phone] Debora Fitch MD Primary Care Provider [phone] Naila Marroquin MD Primary Care Provider [phone] Janine Bañuelos RN Unavailable UnaJohn Paul Sawant MD Unavailable Sindy Armstrong RN Unavailable Darlene vailable Encounter Details Date Type Department Care Team (Late st Contact Info) Description 05/19/2016 Orders Only [facility] Provider, MD Sherif [address] [place] [address] Social History Tobacco Use Types Packs/Day Years Used Date Smoking Tobacco: Former Cigarettes Q uit: 05/01/1974 Alcohol Use Standard Drinks/Week Comments Yes 0 (1 standard drink = 0.6 oz pur e alcohol) Comments Unknown Sex and Gender Information Value Date Recorded Sex Assigned at Not on file Legal Sex Female 8:29 PM CLOTH NAPPING SUPERVISOR Gender Identity Female 09/24/2021 1:08 PM [...] COVID: Suspected 05/28/2021 05/28/2021 05/28/2021 3:42 PM CLOTH NAPPING SUPERVISOR COVID: Suspected 01/24/2023 01/24/2023 01/24/2023 1:28 AM CDT COVID: Suspected 01/24/2023 01/25/2023 01/25/2023 11:46 AM CDT COVID19 Comment:COVID + on home test. Symptoms started 3 days ago. 05/06/2023 05/06/2023 05/16/2023 3:05 AM CLOTH NAPPING SUPERVISOR COVID: Recovered Comment:Added based on recent COVID infection. 05/16/2023 05/23/2023 08/14/2023 3:05 AM C DT documented as of this encounter Care Teams Insole Cementer Relationship Specialty Start Date End Date Debora Fitch MD [address] [address] PCP - General 08/19/16 11/03/16 Miscellaneous, Not In File PCP - General 11/04/16 11/07/16 Debora Fitch MD [address] [address] PCP - General 11/08/16 11/17/16 Naila Marroquin MD [address] [place] [address] PCP - General 11/18/16 11/21/16 Debora Fitch MD [address] [address] PCP - General 11/22/16 11/22/16 Naila Marroquin MD [address] [place] [address] PCP - General 11/23/16 11/26/16 Debora Fitch MD [address] [address] PCP - General 11/27/16 01/03/17 Naila Marroquin MD [address] [place] [address] PCP - General 01/04/17 01/26/17 Debora Fitch MD [address] [facility] [place] [address] PCP - General 01/27/17 02/06/17 Naila Marroquin MD [address] [place] [address] PCP - General 02/07/17 02/13/17 Debora Fitch MD [address] [facility] [address] [address] PCP - General 02/14/17 04/04/17 Naila Marroquin MD [address] [place] [address] PCP - General 04/05/17 04/05/17 Debora Fitch MD [address] [facility] [address] [address] PCP - General 04/06/17 05/18/17 Naila Marroquin MD [address] [place] [address] PCP - General 05/19/17 06/11/17 Debora Fitch MD [address] [address] PCP - General 06/12/17 06/14/17 Naila Marroquin MD [address] [place] [address] PCP - General 06/15/17 07/12/17 Debora Fitch MD [address] [facility] [address] [place] [address] PCP - General 07/13/17 07/20/17 Naila Marroquin MD [address] [place] [address] PCP - General 07/21/17 Janine Bañuelos, farm management agent Nurse 08/02/18 John Paul Springer MD Consulting Physician Orthopedic Surgery 12/05/19 Sindy Armstrong, ALEXANDRA Registered Nurse Pulmonary Disease 03/23/22 documented as of this encounter
--- OUTSIDE RECORDS SUMMARY | 2025-04-26 22:32 | XMS_ITS | Encounter Summary ---
Author Organization [facility] Address [address] [place] [address] Phone Care Team Providers Care Special Shopper Name Role Phone Naila Marroquin MD Primary Care Provider [phone] Janien Bañuelos RN Unavailable Unavai John Paul David MD Unavailable [phone] Sindy Armstrong RN Unavailable Darlene vailable Encounter [...] often do you attend chur ch or episcopal services? Never 01/25/2023 Do you belong to [...] on file Legal Sex Female 8:29 PM COMPLAINT INVESTIGATOR Gender Identity Female 09/24/2021 1:08 PM [...] on filedocumented in this encounter Care Teams Special Shopper Relationship Specialty Start Date End Date Naila Marroquin MD [address] [facility] [address] [place] [address] PCP - General 07/21/17 Janine Bañuelos, patient resource coordinator Nurse 08/02/18 John Paul Springer MD Consulting Physician Orthopedic Surgery 12/05/19 Sindy Armstrong, RN Registered Nurse Pulmonary Disease 03/23/22 documented as of this encounter
--- OUTSIDE RECORDS SUMMARY | 2025-04-26 22:32 | XMS_ITS | Encounter Summary ---
Author Organization [facility] Address [address] [place] [address] Phone Care Team Providers Care Calender Machine Operator Helper Name Role Phone Naila Marroquin MD Primary Care Provider [phone] Janine Bañuelos RN Unavailable Unavai John Paul David MD Unavailable [phone] Sindy Armstrong RN Unavailable Darlene vailable Encounter [...] on file Legal Sex Female 8:29 PM SHREDDER TENDER PEAT Gender Identity Female 09/24/2021 1:08 PM CDT [...] COVID: Suspected 05/28/2021 05/28/2021 05/28/2021 3:42 PM SHREDDER TENDER PEAT COVID: Suspected 01/24/2023 01/24/2023 01/24/2023 1:28 AM CDT COVID: Suspected 01/24/2023 01/25/2023 01/25/2023 11:46 AM CDT COVID19 Comment:COVID + on home test. Symptoms started 3 days ago. 05/06/2023 05/06/2023 05/16/2023 3:05 AM SHREDDER TENDER PEAT COVID: Recovered Comment:Added based on recent COVID infection. 05/16/2023 05/23/2023 08/14/2023 3:05 AM C DT documented as of this encounter Care Teams Calender Machine Operator Helper Relationship Specialty Start Date End Date Naila Marroquin MD [address] [facility] [address] [place] [address] PCP - General 07/21/17 Janine Bañuelos, general lot attendant Nurse 08/02/18 John Paul Springer MD Consulting Physician Orthopedic Surgery 12/05/19 Sindy Armstrong, RN Registered Nurse Pulmonary Disease 03/23/22 documented as of this encounter
--- OUTSIDE RECORDS SUMMARY | 2025-04-26 22:32 | XMS_ITS | Clinical Summary ---
Author Organization [facility] Address [address] [place] [address] Care Team Providers Care Outdoor Adventure Instructor Name Role Phone Unavailable Primary Care Provider Unavailabl e Social History Tobacco Use Types Packs/Day Years Used Date Smoking Tobacco: Never Assessed Comments Unknown Sex and Gender Information Value Date Recorded Sex Assigned at Not on file Legal Sex Female 10:16 PM LINK TRAINER MAINTENANCE MAN Gender Identity Not on file Sexual Orientation [...]
[2025-04-26 22:54] LABS: Hematocrit 37.6 % (37.0-47.0); Hemoglobin 12.1 g/dL (12.0-15.0); Immature Granulocyte Percent A 0.3 % (0-0.5); Lymphocytes Absolute Auto 1.33 K/mm3 (0.9-3.2); Mean Corpuscular HGB Conc 32.2 g/dl (32-36); Mean Corpuscular Hemoglobin 27.0 pg (26-34); Mean Corpuscular Volume 83.9 fl (80-100); Nucleated Red Blood Cells Absolute Auto 0.000 K/mm3 (0.0-0.012); Nucleated Red Blood Cells Perc 0.0 % (0.0-0.2); Platelet Count Result 213 k/mm3 (150-375); Red Blood Count 4.48 M/mm3 (4.2-5.4); White Blood Count 13.3 K/mm3 (4.5-10.0)
[2025-04-26 23:19] LABS: Alanine Aminotransferase 22 U/L (6-35); Albumin Level 3.9 g/dL (3.5-5.1); Alkaline Phosphatase 57 U/L (38-126); Anion Gap 4 mmol/L (4-12); Aspartate Amino Transferase 39 U/L (14-36); Bilirubin,Total 0.5 mg/dL (0.2-1.3); Blood Urea Nitrogen 8 mg/dL (7-17); Calcium 8.4 mg/dL (8.4-10.2); Carbon Dioxide 31 mmol/L (22-30); Chloride 102 mmol/L (98-107); Estimated CRCL calculation 52 ml/min; Estimated Glomerular Filt Rate > 60; Glucose 110 mg/dL (65-110); Magnesium 1.7 mg/dL (1.6-2.3); Potassium 3.6 mmol/L (3.4-5.0); Sodium 137 mmol/L (137-145); Total Protein 7.1 g/dL (6.3-8.2)
[2025-04-26 23:32] LABS: Influenza A QL RT-PCR Negative (Negative); Influenza B QL RT-PCR Negative (Negative); RSV RNA, RT-PCR Negative (Negative); SARS-CoV-2 RNA PCR Negative (Negative)
[2025-04-26 23:37] LABS: Thyroid Stimulating Hormone Reflex 4.790 uIU/mL (0.465-4.68)
[2025-04-27] VITALS (37 sets, daily range): BP systolic 98–120; BP diastolic 42–58; PULSE 67–97; RESP 16–38; TEMP 36.3–36.7; O2SAT 91–100; BMI 23.0
[2025-04-27 00:03] LABS: Free T4 Free Thyroxine Reflex 0.95 ng/dL (0.78-2.19)
[2025-04-27] MEDS: IPRATROPIUM 0.5 MG/ALBUTEROL SULFATE 2.5 MG (BASE) AMPUL.NEB 3 ML INHALATION ×4 (00:07→19:31)
[2025-04-27 00:44] LABS: Total Triiodothyronine (T3) 0.94 NG/ML (0.82-1.58)
[2025-04-27 01:24] LABS: Add Urine Microscopic? NO; Appearance Urine Clear (Clear); Glucose Urine UA Negative (Negative); Leukocyte Esterase Ur Negative LEU/UL (Negative); Nitrate Urine Negative (Negative); Specific Grav Ur 1.009 (1.001-1.035)
--- NOTE | 2025-04-27 02:22 | WPCEDHO ---
ED Hand Off Checklist All vitals saved: yes IV Site documented: yes All med administrations documented: yes Triage Note Triage Note Pt to ED via POV. Pt states she 04/26/25 21:28 has been feeling weak and SOB. Pt states she fell in the shower due to weakness. Pt states she is just so sick. Pt states she has been feeling this was way since noon. Pt is accompanied by grandson. Pt states when she fell she was unable to help herself up crawl or use her walker. Pt is A&ox4. Allergies codeine Allergy (Mild, Verified 02/25/25 11:03) Unknown nitrofurantoin Allergy (Mild, Verified 02/05/25 11:27) Unknown oxcarbazepine Allergy (Mild, Verified 02/05/25 11:27) Unknown Active Medications including assessments/comments Albuterol/Ipratropium (Ipratropium 0.5 Mg/Albuterol Sulfate 2.5 Mg (Base) Ampul.Neb 3 Ml) 3 ml INHALATION Q6HRT SINGH Last Admin: 04/27/25 02:00 Dose: 3 ml Documented By: [facility] MAR Nebulizer Assessment Document 04/27/25 02:00 [facility] (Rec: 04/27/25 02:00 [facility] [id number]) Updraft Nebulizer Treatment Method Mask Administered/Completed Medications Discontinued Medications Albuterol/Ipratropium (Ipratropium 0.5 Mg/Albuterol Sulfate 2.5 Mg (Base) Ampul.Neb 3 Ml) 3 ml INHALATION ONCE STA Stop: 04/26/25 23:34 Last Admin: 04/27/25 00:07 Dose: 3 ml Documented By: [facility] Interventions/Assessments Cardiac Monitoring Start: 04/26/25 21:27 Freq: Status: Active Protocol: Document 04/26/25 22:19 ACO (Rec: 04/26/25 22:20 ACO [id number]) Software Manager Assessment Software Manager Yes Applied Pulse Rate (60-100) 97 EKG Rythm Sinus Rhythm IV / Saline Lock, Insert Start: 04/26/25 21:27 Freq: Status: Active Protocol: Document 04/26/25 22:46 ACO (Rec: 04/26/25 22:47 ACO [id number]) IV Assessment Peripheral Access Right Hand IV Catheter Access Initiated IV Insertion Date 04/26/25 IV Insertion Time 22:47 Catheter Gauge 20 IV Site Assessment WNL IV Care and WNL Maintenance PA: Cardiovascular Assessment Start: 04/26/25 21:27 Freq: Status: Active Protocol: Document 04/26/25 22:21 ACO (Rec: 04/26/25 22:21 ACO [id number]) Cardiovascular Assessment Cardiovascular None Symptoms Skin Description Normal Color Capillary Refill Upper Extremity Capillary Refill Normal/Less than 2 Seconds PA: Neurological Assessment Start: 04/26/25 21:27 Freq: Status: Active Protocol: Document 04/26/25 22:21 ACO (Rec: 04/26/25 22:21 ACO [id number]) Neurological Assessment Level of Alert Consciousness Arousable to Verbal Orientation Oriented to Person,Oriented to Place,Oriented to Time Neurological Frequent Falls,Weakness, General Symptoms Hallucination Type None Behavior Appropriate,Cooperative Patient Able to Comprehend Comprehension Memory Description Intact Prashanth Coma Scale Eyes Open Verbal Oriented and Alert Motor Follows Commands Roosevelt Coma Total 15 Score Last Vital Signs Temperature 99.5 F 04/26/25 22:20 Pulse Rate 91 04/27/25 02:16 Respiratory Rate 32 H 04/27/25 02:16 Pulse Oximetry 100 04/27/25 02:16 Blood Pressure 110/45 L 04/27/25 02:16 Blood Pressure Mean 64 04/27/25 02:16 Oxygen Delivery Nasal Cannula 04/27/25 02:01 Oxygen Flow Rate 1 04/27/25 02:01 Weight 54.5 kg 04/26/25 21:28 Last Result - Abnormals Only WBC 13.3 K/mm3 (4.5-10.0) H 04/26/25 22:45 MPV 10.5 fl (7.4-10.4) H 04/26/25 22:45 Neut % (Auto) 79.5 % (45.5-73.1) H 04/26/25 22:45 Lymph % (Auto) 10.0 % (18.3-44.2) L 04/26/25 22:45 Gates # (Auto) 1.1 K/mm3 (0.1-0.6) H 04/26/25 22:45 Abs Immat Gran (auto) 0.04 K/mm3 (0.00-0.031) H 04/26/25 22:45 Absolute Neuts (auto) 10.6 K/mm3 (1.3-6.7) H 04/26/25 22:45 Carbon Dioxide 31 mmol/L (22-30) H 04/26/25 22:45 Creatinine 0.60 mg/dL (0.7-1.0) L 04/26/25 22:45 AST 39 U/L (14-36) H 04/26/25 22:45 TSH (Reflex) 4.790 uIU/mL (0.465-4.68) H 04/26/25 22:45 Most Recent Suicide Severity Rating Suicide Severity Rating NO RISK INDICATED 04/26/25 21:28
--- NOTE | 2025-04-27 03:15 | ADMGEN ---
This patient, Angelia Salcedo, was admitted to [facility] Surg Room 300-01. Patient/family oriented to hospital policies and general routines including ID bracelet, bed and alarms, visiting hours, pain management, procedures, bathroom and other care routines, personal items, smoking policy, room service/diet, and visiting hours. Information on how to activate the Rapid Response Team has been discussed. Patient/Family are encouraged to report perceived risks to care and to ask questions if they do not understand what they are told or what they should do.
--- NOTE | 2025-04-27 03:43 | PM.IMHP2 ---
H&P: HPI History of Present Illness Date/Time: 04/27/25 03:43 Chief Complaint: Shortness of breath with weakness and fall Narrative: This is a 80-year-old female patient who resides at [facility]. She has a history of interstitial lung disease and does not typically wear oxygen at home. She stated that she was so weak today that she could not even walk with a walker. She was not able to perform her own ADLs. The patient also stated she was feeling constipated and tried an enema [id number] was some improvement. Her white count was noted to be 13.3. Her TSH was slightly high at 4.79. Her urine was negative for UTI. The patient was negative for influenza a influenza B, RSV, and COVID. Per ED provider chest x-ray appears to have some interstitial pattern with no overt evidence of pneumonia. CT angio with PE protocol was ordered. As per ED provider CTA chest shows no pulmonary embolism, bronchiectasis is seen with fibrotic lung changes more prominent than prior. 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 Patient's initial pulse ox was 82% in then came up to 100% with 2 L per nasal cannula. The patient is being admitted to observation status on the date of service of 04/27/2025. Review of Systems Constitutional: Constitutional: Reports as per HPI and Reports no additional constitutional complaints Eyes: Eyes: Reports as per HPI and Reports no additional eye complaints ENT: Reports no additional ear, nose, mouth, and throat complaints and Reports Normal hearing present Cardiovascular: Cardiovascular: Reports no additional cardiovascular complaints Respiratory: Respiratory: Reports as per HPI and Reports no additional respiratory complaints Gastrointestinal: Gastrointestinal: Reports as per HPI and Reports no additional gastrointestinal complaints Genitourinary: Genitourinary: Reports no additional female genitourinary complaints Musculoskeletal: Musculoskeletal: Reports no additional musculoskeletal complaints Integumentary/Breasts: Skin/Breast: Reports system reviewed and no additional complaints, except as docu Neurologic: Reports no additional neurologic complaints and Reports Normal hearing present Psychiatric: Psychiatric: Reports no additional psychiatric complaints and Reports as per HPI Hematologic/Lymphatic: Hematologic/Lymphatic: Reports no additional hematologic/lymphatic complaints Allergic/Immunologic: Allergic/Immunologic: Reports no additional allergic/immunologic complaints FORMERLY [facility], [facility]–1983 Past Medical History Medical History (Updated 04/27/25 @ 07:29 by Kristi Mckeon APRN) Bronchiolectasis 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 Fibromyalgia Neuralgia Hypogammaglobulinemia Darby esophagus Interstitial lung disease Bipolar disorder Hypothyroidism High cholesterol Depression Anxiety Neuropathic pain Surgical History Surgical History (Updated 04/27/25 @ 07:10 by Kristi Mckeon APRN) History of bladder surgery Medtronic bladder stimulator H/O cataract extraction H/O cardiac catheterization Without intervention Hx of cholecystectomy History of tracheostomy H/O colonoscopy H/O rectal polypectomy H/O: hysterectomy History of appendectomy Family History Family History (Updated 04/27/25 @ 07:11 by Kristi Mckeon APRN) Mother Diabetes mellitus Sibling Diabetes mellitus Other Heart disease Hypertension Social History Social History (Updated 04/27/25 @ 07:12 by Kristi Mckeon APRN) Social History: The patient is retired from [employer]. She has 5 children. She resides at [facility]. Code status: Full code Smoking status: Former smoker Tobacco type: cigarettes Second hand tobacco smoke exposure: Yes Smoking end date: 05/01/73 Alcohol intake: never Substance use: current Substance use type: prescription drug Lack of Transportation: No Lack of Food: Never True Current Housing: I Have Housing Concerned About Future Housing: No Difficulty Paying Gas/Electric Bills: No Difficulty Paying for Meds: No Currently Unemployed: No Education: High School Diploma/GED Difficulty w/ Childcare or Family Care: No Living arrangements: assisted living Spiritual care concerns: No Meds Home Medications and Allergies Home Medications ?Medication ?Instructions ?Recorded ?Confirmed ?Type albuterol sulfate 90 mcg/actuation 2 inh inhalation Q8H PRN shortness 12/17/24 04/27/25 History aerosol inhaler (Ventolin HFA) of breath or wheezing alprazolam 1 mg tablet 1 mg PO QID anxiety 12/17/24 04/27/25 History aspirin 81 mg tablet 81 mg PO HS 12/17/24 04/27/25 History cetirizine 10 mg tablet (Allergy 10 mg PO DAILY allergy symptoms 12/17/24 04/27/25 History Relief (cetirizine)) ciclopirox 8 % topical solution 1 applic topical QHS 12/17/24 04/27/25 History cyanocobalamin (vitamin B-12) 1,000 mcg subcut MONTHLY 12/17/24 04/27/25 History 1,000 mcg/mL injection kit diclofenac sodium 2 % topical 2 ml topical QID 12/17/24 04/27/25 History solution in packet ezetimibe 10 mg tablet 10 mg PO DAILY 12/17/24 04/27/25 History famotidine 40 mg tablet 40 mg PO QHS 12/17/24 04/27/25 History fluticasone propionate 50 1 inh inhalation DAILY 12/17/24 04/27/25 History mcg/actuation blister powder for inhalation isosorbide mononitrate 60 mg 60 mg PO DAILY 12/17/24 04/27/25 History tablet,extended release 24 hr montelukast 10 mg tablet 10 mg PO HS 12/17/24 04/27/25 History nitroglycerin 0.4 mg sublingual 0.4 mg sublingual Q5M PRN chest 12/17/24 04/27/25 History tablet pain pantoprazole 40 mg tablet,delayed 40 mg PO QAM 12/17/24 04/27/25 History release rosuvastatin 40 mg tablet 40 mg PO DAILY 12/17/24 04/27/25 History sennosides 8.6 mg-docusate sodium 2 tab-cap PO QHS 12/17/24 04/27/25 History 50 mg tablet sertraline 100 mg tablet 100 mg PO DAILY 12/17/24 04/27/25 History acetaminophen 500 mg capsule 500 mg PO Q8H 04/27/25 04/27/25 History carboxymethylcellulose sodium 0.5 1 drp EACH EYE TID 04/27/25 04/27/25 History % eye drops ergocalciferol (vitamin D2) 1,250 1,250 mcg PO .BIWEEKLY 04/27/25 04/27/25 History mcg (50,000 unit) capsule (Vitamin D2) ipratropium bromide 21 mcg (0.03 2 spray intranasal Q6H 04/27/25 04/27/25 History %) nasal spray levothyroxine 75 mcg tablet 75 mcg PO DAILY 04/27/25 04/27/25 History lidocaine 4 % topical patch 1 patch topical TID 04/27/25 04/27/25 History (Aspercreme (lidocaine)) fsrqvvde-svzhjwkyr-wrlodwvgy 3.5 4 drp otic (ear) TID 04/27/25 04/27/25 History mg-10,000 unit/mL-1 % ear drops,susp pregabalin 50 mg capsule 50 mg PO TID 04/27/25 04/27/25 History sodium chloride 0.65 % nasal spray 2 spray intranasal .5 TIMES DAILY 04/27/25 04/27/25 History aerosol ([facility]) triamcinolone acetonide 55 mcg 2 spray intranasal DAILY 04/27/25 04/27/25 History nasal spray aerosol (24 Hour Nasal Allergy) zolpidem 5 mg tablet 5 mg PO HS 04/27/25 04/27/25 History Allergies Allergy/AdvReac Type Severity Reaction Status Date / Time codeine Allergy Mild Unknown Verified 04/27/25 03:43 nitrofurantoin Allergy Mild Unknown Verified 04/27/25 03:43 oxcarbazepine Allergy Mild Unknown Verified 04/27/25 03:43 Vital Signs Vital Signs - 24 hr 04/26/25 22:19 04/26/25 22:20 04/26/25 22:20 Temperature 99.5 F Pulse Rate 97 100 Respiratory Rate 25 H Blood Pressure 121/69 Pulse Oximetry 82 L 95 Oxygen Delivery Nasal Cannula Oxygen Flow Rate 2 04/26/25 23:04 04/26/25 23:15 04/26/25 23:16 Temperature Pulse Rate 96 92 94 Respiratory Rate 44 H 36 H 34 H Blood Pressure 119/53 L Pulse Oximetry 99 99 99 Oxygen Delivery Oxygen Flow Rate 04/26/25 23:18 04/26/25 23:30 04/26/25 23:31 Temperature Pulse Rate 93 94 94 Respiratory Rate 40 H 40 H 44 H Blood Pressure 119/53 L 121/54 L Pulse Oximetry 100 99 99 Oxygen Delivery Oxygen Flow Rate 04/27/25 00:06 04/27/25 00:07 04/27/25 00:07 Temperature Pulse Rate 92 88 Respiratory Rate 30 H 32 H Blood Pressure Pulse Oximetry 99 Oxygen Delivery Nasal Cannula Oxygen Flow Rate 2 04/27/25 00:15 04/27/25 00:20 04/27/25 00:28 Temperature Pulse Rate 88 90 Respiratory Rate 34 H 35 H Blood Pressure 120/45 L Pulse Oximetry 100 98 97 Oxygen Delivery Nasal Cannula Oxygen Flow Rate 1 04/27/25 00:30 04/27/25 00:31 04/27/25 00:46 Temperature Pulse Rate 90 90 97 Respiratory Rate 36 H 34 H 22 H Blood Pressure 114/49 L 101/55 L Pulse Oximetry 98 98 99 Oxygen Delivery Oxygen Flow Rate 04/27/25 01:01 04/27/25 01:16 04/27/25 01:17 Temperature Pulse Rate 94 89 90 Respiratory Rate 27 H 31 H 32 H Blood Pressure 115/47 L 113/46 L Pulse Oximetry 97 96 96 Oxygen Delivery Oxygen Flow Rate 04/27/25 01:30 04/27/25 01:31 04/27/25 01:45 Temperature Pulse Rate 90 88 91 Respiratory Rate 34 H 25 H 38 H Blood Pressure 110/44 L Pulse Oximetry 98 98 100 Oxygen Delivery Oxygen Flow Rate 04/27/25 01:46 04/27/25 02:00 04/27/25 02:01 Temperature Pulse Rate 91 91 93 Respiratory Rate 36 H 37 H 32 H Blood Pressure 113/47 L Pulse Oximetry 100 96 97 Oxygen Delivery Nasal Cannula Oxygen Flow Rate 1 04/27/25 02:01 04/27/25 02:01 04/27/25 02:15 Temperature Pulse Rate 93 91 89 Respiratory Rate 32 H 36 H 32 H Blood Pressure 107/49 L Pulse Oximetry 99 100 Oxygen Delivery Oxygen Flow Rate 04/27/25 02:16 04/27/25 03:26 04/27/25 03:36 Temperature 97.3 F L Pulse Rate 91 91 90 Respiratory Rate 32 H 32 H 22 H Blood Pressure 110/45 L 110/45 L 114/42 L Pulse Oximetry 100 100 92 Oxygen Delivery Oxygen Flow Rate Exam Const: General: cooperative, healthy appearing, comfortable, no acute distress, well developed, awake, Physically active, average body habitus and well nourished Orientation/consciousness: oriented to person and oriented to place HENMT: Head: normal to inspection, No palpable skull fracture present, normocephalic, atraumatic and abrasion Ears: hearing grossly normal bilaterally Eyes: General: appearance normal, both eyes and all related structures Alignment and Position: alignment normal Periorbital: periorbital findings normal Eyelids: eyelids normal EOM: EOMs intact bilaterally Neck: Neck: normal visual inspection and full ROM Chest: Chest palpation & inspection: normal inspection of the chest Resp: Effort & Inspection: normal respiratory effort Auscultation: diminished lung sounds diffuse Cardio: Palpation: normal PMI Rate: regular rate GI: Inspection: normal to inspection Urinary Catheter: Urinary Catheter: patent and draining and urine clear Back/Spine/Pelvis: Back: no CVA tenderness Skin: General skin exam: normal color Lesions: no lesions Rashes: no rashes Trauma: no lacerations or abrasions Wounds: no wounds Hair: normal Nails: normal Neuro: General: oriented to person and oriented to place Extrem: General: normal to inspection Right upper extremity: normal to inspection and shoulder/upper arm Left upper extremity: normal to inspection and shoulder/upper arm Right lower extremity: normal to inspection Left lower extremity: normal to inspection Psych: Appearance: grossly normal Mental Status: mental status grossly normal Speech and movement: Normal speech and movement present Affect: normal affect Attitude: cooperative Thought process: Normal thought process present Results Labs Labs: Short CBC 04/26/25 Range/Units 22:45 WBC 13.3 H (4.5-10.0) K/mm3 Hgb 12.1 (12.0-15.0) g/dL Hct 37.6 (37.0-47.0) % Plt Count 213 (150-375) k/mm3 BMP 04/26/25 22:45 Sodium 137 Potassium 3.6 Chloride 102 Carbon Dioxide 31 H BUN 8 Creatinine 0.60 L Glucose 110 Calcium 8.4 Liver Function 04/26/25 Range/Units 22:45 Total Bilirubin 0.5 (0.2-1.3) mg/dL AST 39 H (14-36) U/L ALT 22 (6-35) U/L Alkaline Phosphatase 57 (38-126) U/L Albumin 3.9 (3.5-5.1) g/dL Urine 04/27/25 Range/Units 00:54 Urine Color Yellow (Yellow) Urine Appearance Clear (Clear) Urine pH 6.0 (5.0-9.0) Ur Specific [place] 1.009 (1.001-1.035) Urine Protein Negative (Negative) mg/dL Urine Glucose (UA) Negative (Negative) mg/dL Attestation: I personally reviewed all lab results ECG Attestation: I personally reviewed and interpreted this ECG as follows: Interpretation: EKG sinus rhythm heart rate 97 AZ interval 143 QT [address] scan - chest: Radiologist's impression: As per preliminary report as per ER provider no acute rib pulmonary emboli. Quality VTE Prophylaxis VTE prophylaxis: mechanical ordered Assessment and Plan Assessment and plan (1) Acute and chronic respiratory failure with hypoxia: Code(s): J96.21 - Acute and chronic respiratory failure with hypoxia Status: Acute Assessment and Plan: -pulmonology consult was placed. -she has a history of COPD and interstitial lung disease. -patient had a pulse ox reading of 82 initially. She was placed on oxygen at 2 L in chemo to 100%. -home O2 evaluation would greatly be appreciated. -continue with Mucinex -I did offer steroids with the patient declined. She stated that steroids make her too anxious and she is already anxious. -continue with nebulizer treatments. -CTA pulmonary was reported no PE. -she also has a history of COPD. (2) Bronchiectasis: Code(s): J47.9 - Bronchiectasis, uncomplicated Status: Acute Assessment and Plan: -continue with Mucinex and DuoNebs. (3) Interstitial lung disease: Code(s): J84.9 - Interstitial pulmonary disease, unspecified Status: Acute Assessment and Plan: -continue with nebulizer treatments. -continue with Mucinex. -pulmonary consultation would greatly be appreciated. -patient was empirically started on azithromycin. QTC was within normal limits however continue to monitor. -she also has a history of COPD. -continue with Singulair (4) Fibromyalgia: Code(s): M79.7 - Fibromyalgia Status: Acute Assessment and Plan: -continue with Lyrica (5) Anxiety: Code(s): F41.9 - Anxiety disorder, unspecified Status: Acute Assessment and Plan: Continue with sertraline and Xanax home dose (6) Depression: Code(s): F32.A - Depression, unspecified Status: Acute Assessment and Plan: Continue with sertraline (7) Hypothyroidism: Code(s): E03.9 - Hypothyroidism, unspecified Status: Acute Assessment and Plan: Continue levothyroxine (8) High cholesterol: Code(s): E78.00 - Pure hypercholesterolemia, unspecified Status: Acute Assessment and Plan: Continue with Zetia and Crestor
[2025-04-27] MEDS: ACETAMINOPHEN 325 MG TABLET 650 MG PO ×2 (04:16→18:33)
[2025-04-27] MEDS: AZITHROMYCIN IV 500 MG in SODIUM CHLORIDE 0.9% IV 250 ML IVPB (08:39)
[2025-04-27] MEDS: LEVOTHYROXINE SODIUM 75 MCG TABLET PO (08:40)
[2025-04-27] MEDS: PANTOPRAZOLE 40 MG TABLET PO (08:46)
[2025-04-27] MEDS: EZETIMIBE 10 MG TABLET PO (08:46)
[2025-04-27] MEDS: ALPRAZolam (*CRX) 0.5 MG TABLET 1 MG PO ×4 (08:46→20:23)
[2025-04-27] MEDS: FLUTICASONE PROPIONATE 0.05% NA SPR 16 GM BTL (*BKC) 2 SPRAY NASAL (08:47)
[2025-04-27] MEDS: SALINE 0.65% NAS SOLN 44 ML BTL 2 SPRAY NASAL (08:48)
[2025-04-27] MEDS: guaiFENesin 12 HR 600 MG TABCR 1200 MG PO ×2 (08:48→20:22)
[2025-04-27] MEDS: SERTRALINE HCL 50 MG TABLET 100 MG PO (08:48)
[2025-04-27] MEDS: ROSUVASTATIN 20 MG TABLET 40 MG PO (08:48)
[2025-04-27] MEDS: IPRATROPIUM NASAL SPRAY 0.03% 15 ML BOTTLE 2 SPRAY NASAL (10:16)
--- NOTE | 2025-04-27 10:28 | P.PNIM_ITS ---
Assessment and Plan Assessment and Plan (1) Acute and chronic respiratory failure with hypoxia: Code(s): J96.21 - Acute and chronic respiratory failure with hypoxia Status: Acute Assessment and Plan: -pulmonology consult was placed. -she has a history of COPD and interstitial lung disease. -patient had a pulse ox reading of 82 initially. She was placed on oxygen at 2 L in the ER, nursing to wean as tolerated. -home O2 evaluation would greatly be appreciated. -continue with Mucinex -I did offer steroids with the patient declined. She stated that steroids make her too anxious and she is already anxious. -continue with nebulizer treatments. -CTA pulmonary was reported no PE. -she also has a history of COPD. (2) Bronchiectasis: Code(s): J47.9 - Bronchiectasis, uncomplicated Status: Acute Assessment and Plan: -continue with Mucinex and DuoNebs. (3) Interstitial lung disease: Code(s): J84.9 - Interstitial pulmonary disease, unspecified Status: Acute Assessment and Plan: -continue with nebulizer treatments. -continue with Mucinex. -pulmonary consultation would greatly be appreciated. -patient was empirically started on azithromycin. QTC was within normal limits however continue to monitor. -she also has a history of COPD. -continue with Singulair (4) Fibromyalgia: Code(s): M79.7 - Fibromyalgia Status: Acute Assessment and Plan: -continue with Lyrica (5) Anxiety: Code(s): F41.9 - Anxiety disorder, unspecified Status: Acute Assessment and Plan: Continue with wellbutrin and Xanax home dose (6) Depression: Code(s): F32.A - Depression, unspecified Status: Acute Assessment and Plan: Continue with wellbutrin (7) Hypothyroidism: Code(s): E03.9 - Hypothyroidism, unspecified Status: Acute Assessment and Plan: Continue levothyroxine (8) High cholesterol: Code(s): E78.00 - Pure hypercholesterolemia, unspecified Status: Acute Assessment and Plan: Continue with Zetia and Crestor Medical Record Review I have reviewed the following patient records and this information was taken into consideration when formulating the assessment and plan.: previous labs, previous ER visits and previous hospitalizations Subjective Date/time seen: 04/27/25 10:28 Interval history: Patient seen for a follow up visit. Patient lying in bed, in no acute distress. Patient currently on room air as nursing reports she was satting 95% on oxygen. Nursing to recheck patients oxygen saturations. Home O2 study ordered. Patient continues on IV azithromycin. Pulmonary is consulted. PT/OT ordered. Review of Systems Review of Systems: All systems reviewed & are unremarkable except as noted in HPI and below Exam Const: General: comfortable and no acute distress HENMT: Head: normocephalic Ears: hearing grossly normal bilaterally Eyes: General: appearance normal, both eyes and all related structures Eyelids: eyelids normal Neck: Neck: normal visual inspection Resp: Effort & Inspection: normal respiratory effort Auscultation: diminished lung sounds diffuse Cardio: Rate: regular rate Rhythm: regular rhythm GI: GI Palp: Yes Soft to palpation Auscultation: normal bowel sounds Urinary Catheter: Urinary Catheter: patent and draining and urine clear Skin: General skin exam: normal color and no rashes or lesions noted Neuro: Speech: normal speech Motor exam (neuro): 5/5 motor strength present throughout Sensory Exam: normal sensation Extrem: General: normal to inspection Psych: Mental Status: mental status grossly normal Affect: normal affect Objective Data Vital Signs Vital Signs: Vital Signs - 24 hr 04/26/25 22:19 04/26/25 22:20 04/26/25 22:20 Temperature 99.5 F Pulse Rate 97 100 Respiratory Rate 25 H Blood Pressure 121/69 Pulse Oximetry 82 L 95 Oxygen Delivery Nasal Cannula Oxygen Flow Rate 2 04/26/25 23:04 04/26/25 23:15 04/26/25 23:16 Temperature Pulse Rate 96 92 94 Respiratory Rate 44 H 36 H 34 H Blood Pressure 119/53 L Pulse Oximetry 99 99 99 Oxygen Delivery Oxygen Flow Rate 04/26/25 23:18 04/26/25 23:30 04/26/25 23:31 Temperature Pulse Rate 93 94 94 Respiratory Rate 40 H 40 H 44 H Blood Pressure 119/53 L 121/54 L Pulse Oximetry 100 99 99 Oxygen Delivery Oxygen Flow Rate 04/27/25 00:06 04/27/25 00:07 04/27/25 00:07 Temperature Pulse Rate 92 88 Respiratory Rate 30 H 32 H Blood Pressure Pulse Oximetry 99 Oxygen Delivery Nasal Cannula Oxygen Flow Rate 2 04/27/25 00:15 04/27/25 00:20 04/27/25 00:28 Temperature Pulse Rate 88 90 Respiratory Rate 34 H 35 H Blood Pressure 120/45 L Pulse Oximetry 100 98 97 Oxygen Delivery Nasal Cannula Oxygen Flow Rate 1 04/27/25 00:30 04/27/25 00:31 04/27/25 00:46 Temperature Pulse Rate 90 90 97 Respiratory Rate 36 H 34 H 22 H Blood Pressure 114/49 L 101/55 L Pulse Oximetry 98 98 99 Oxygen Delivery Oxygen Flow Rate 04/27/25 01:01 04/27/25 01:16 04/27/25 01:17 Temperature Pulse Rate 94 89 90 Respiratory Rate 27 H 31 H 32 H Blood Pressure 115/47 L 113/46 L Pulse Oximetry 97 96 96 Oxygen Delivery Oxygen Flow Rate 04/27/25 01:30 04/27/25 01:31 04/27/25 01:45 Temperature Pulse Rate 90 88 91 Respiratory Rate 34 H 25 H 38 H Blood Pressure 110/44 L Pulse Oximetry 98 98 100 Oxygen Delivery Oxygen Flow Rate 04/27/25 01:46 04/27/25 02:00 04/27/25 02:01 Temperature Pulse Rate 91 91 93 Respiratory Rate 36 H 37 H 32 H Blood Pressure 113/47 L Pulse Oximetry 100 96 97 Oxygen Delivery Nasal Cannula Oxygen Flow Rate 1 04/27/25 02:01 04/27/25 02:01 04/27/25 02:15 Temperature Pulse Rate 93 91 89 Respiratory Rate 32 H 36 H 32 H Blood Pressure 107/49 L Pulse Oximetry 99 100 Oxygen Delivery Oxygen Flow Rate 04/27/25 02:16 04/27/25 03:26 04/27/25 03:36 Temperature 97.3 F L Pulse Rate 91 91 90 Respiratory Rate 32 H 32 H 22 H Blood Pressure 110/45 L 110/45 L 114/42 L Pulse Oximetry 100 100 92 Oxygen Delivery Oxygen Flow Rate 04/27/25 04:00 04/27/25 05:00 04/27/25 06:00 Temperature 97.6 F Pulse Rate 85 76 Respiratory Rate 18 Blood Pressure 102/58 L Pulse Oximetry 93 97 Oxygen Delivery Nasal Cannula Oxygen Flow Rate 2 04/27/25 07:29 04/27/25 07:30 04/27/25 07:32 Temperature Pulse Rate 72 67 Respiratory Rate 19 18 Blood Pressure Pulse Oximetry 99 Oxygen Delivery Nasal Cannula Oxygen Flow Rate 2 Intake/Output Intake/Output: Intake & Output 04/24/25 04/25/25 04/26/25 12/28/25 23:59 23:59 23:59 23:59 Intake Total 870 Output Total 1800 Balance -930 Meds/Results Medications: Active Medications Generic Name Dose Route Start Last Admin Trade Name Freq PRN Reason Stop Dose Admin Acetaminophen 650 mg 04/27/25 01:29 04/27/25 04:16 Acetaminophen 325 Mg Tablet PO 650 mg Q4H PRN Administration Mild Pain (1-3) or Fever Albuterol/Ipratropium 3 ml 04/27/25 02:00 04/27/25 07:25 Ipratropium 0.5 Mg/Albuterol Sulfate 2.5 Mg (Base) Ampul.Neb 3 Ml INHALATION 3 ml Q6HRT SINGH Administration Alprazolam 1 mg 04/27/25 09:00 04/27/25 08:46 Alprazolam (*Crx) 0.5 Mg Tablet PO 1 mg QID SINGH Administration Aspirin 81 mg 04/27/25 21:00 Aspirin 81 Mg Enteric Tablet PO HS SINGH Ezetimibe 10 mg 04/27/25 09:00 04/27/25 08:46 Ezetimibe 10 Mg Tablet PO 10 mg DAILY SING[facility] Administration Ergocalciferol 1,250 mcg 04/27/25 07:00 Ergocalciferol (Vitamin D2) 1,250 Mcg (50,000 Units) Capsule PO .BIWEEKLY SINGH Famotidine 40 mg 04/27/25 21:00 Famotidine 20 Mg Tablet PO QHS SINGH Fluticasone Propionate 2 spray 04/27/25 09:00 04/27/25 08:47 Fluticasone Propionate 0.05% Na Spr 16 Gm Btl (*Bkc) NASAL 2 spray QAM SINGH Administration Guaifenesin 1,200 mg 04/27/25 09:00 04/27/25 08:48 Guaifenesin 12 Hr 600 Mg Tabcr PO 1,200 mg Q12HR SINGH Administration Azithromycin 500 mg/ Sodium 250 mls @ 250 mls/hr 04/27/25 08:00 04/27/25 09:38 Chloride IVPB 05/01/25 09:59 Infused QAM SINGH Infusion Ipratropium [place] 2 spray 04/27/25 09:00 04/27/25 10:16 Ipratropium Nasal [place] 0.03% 15 Ml Bottle NASAL 2 spray TID SINGH Administration Isosorbide Mononitrate 60 mg 04/27/25 09:00 Isosorbide Mononitrate 60 Mg Tab.Er.24h PO DAILY [facility] Levothyroxine Sodium 75 mcg 04/27/25 07:30 04/27/25 08:40 Levothyroxine Sodium 75 Mcg Tablet PO 75 mcg DAILY@0630 [facility] Administration Miscellaneous Information 1 each 04/27/25 00:01 Vit D 50,000 Units Biweekly - What Day Due? XX 05/27/25 00:00 CLARIFY [facility] Miscellaneous Information 1 each 04/27/25 00:01 Pregabalin 50mg Tid Order. Exernal Fill History 04/11 Is For 150mg Capsules And 75mg Capsu XX 05/27/25 00:00 CLARIFY [facility] Montelukast Sodium 10 mg 04/27/25 21:00 Montelukast Sodium 10 Mg Tablet PO HS [facility] Ondansetron HCl 4 mg 04/27/25 01:29 Ondansetron Inj 4 Mg/2 Ml Vial IV PUSH Q4H PRN Nausea Pantoprazole Sodium 40 mg 04/27/25 09:00 04/27/25 08:46 Pantoprazole 40 Mg Tablet PO 40 mg QAM [facility] Administration Pregabalin 50 mg 04/27/25 09:00 Pregabalin (*Crx) 50 Mg Capsule PO TID [facility] Rosuvastatin Calcium 40 mg 04/27/25 09:00 04/27/25 08:48 Rosuvastatin 20 Mg Tablet PO 40 mg DAILY [facility] Administration Senna/Docusate Sodium 2 tab 04/27/25 21:00 Senna/Docusate Sodium Tablet PO QHS [facility] Sertraline HCl 100 mg 04/27/25 09:00 04/27/25 08:48 Sertraline Hcl 50 Mg Tablet PO 100 mg DAILY [facility] Administration Sodium Chloride 2 spray 04/27/25 09:00 04/27/25 08:48 Saline 0.65% Karlo Soln 44 Ml Btl NASAL 2 spray 5 TIMES DAILY [facility] Administration Zolpidem Tartrate 5 mg 04/27/25 21:00 Zolpidem Tartrate (*Crx) 5 Mg Tablet PO HS [facility] Radiology Results: ITS Impressions Head CT 04/27/25 06:49 IMPRESSION: 1. No acute intracranial findings. Chest X-Ray 04/27/25 09:25 IMPRESSION: 1. Chronic pulmonary fibrosis. 2. Superimposed edema or pneumonitis cannot be excluded. Labs Labs: Laboratory Results - last 24 hr 04/26/25 04/26/25 04/27/25 22:45 22:46 00:54 WBC 13.3 H RBC 4.48 Hgb 12.1 Hct 37.6 MCV 83.9 MCH 27.0 MCHC 32.2 RDW 13.3 Plt Count 213 MPV 10.5 H Immature Gran % (Auto) 0.3 Neut % (Auto) 79.5 H Lymph % (Auto) 10.0 L [place] % (Auto) 8.3 Eos % (Auto) 1.5 Baso % (Auto) 0.4 Lymph # (Auto) 1.33 [place] # (Auto) 1.1 H Eos # (Auto) 0.2 Baso # (Auto) 0.1 Abs Immat Gran (auto) 0.04 H Absolute Neuts (auto) 10.6 H Absolute Nucleated RBC 0.000 Nucleated RBC % 0.0 Sodium 137 Potassium 3.6 Chloride 102 Carbon Dioxide 31 H Anion Gap 4 BUN 8 Creatinine 0.60 L Estim Creat Clear Calc 52 Estimated GFR > 60 Glucose 110 Calcium 8.4 Magnesium 1.7 Total Bilirubin 0.5 AST 39 H ALT 22 Alkaline Phosphatase 57 Total Protein 7.1 Albumin 3.9 TSH (Reflex) 4.790 H Free T4 0.95 Total T3 0.94 Urine Color Yellow Urine Appearance Clear Urine pH 6.0 Ur Specific [place] 1.009 Urine Protein Negative Urine Glucose (UA) Negative Urine Ketones Negative Ur Blood (Man) Negative Urine Nitrate Negative Urine Bilirubin Negative Urine Urobilinogen 1.0 Leukocyte Esterase Rfl Negative Influenza A (RT-PCR) Negative Influenza B (RT-PCR) Negative RSV (RT-PCR) Negative SARS-CoV-2 RNA (RT-PCR) Negative Quality VTE Prophylaxis VTE prophylaxis: mechanical ordered
[2025-04-27] MEDS: BISACODYL 10 MG SUPPOSITORY RECTAL (13:18)
--- NOTE | 2025-04-27 15:07 | PCPTNOTE ---
attempted PT eval, pt states she is in too much pain in her buttocks to participate because of constipation, she stated she would not be able to get up, will follow
[2025-04-27] MEDS: PREGABALIN (*CRX) 75 MG CAPSULE PO (16:51)
--- NOTE | 2025-04-27 18:08 | PC.NURSE ---
Addendum entered by Juany Luna RN 04/27/25 18:12: Spoke with Grandson at 1200. Original Note: Spoke with Grandjuan about Brenda's home meds and made changes, the med sheet from [place] was from July 2024. Abigail IGNACIO notified.
[2025-04-27] MEDS: PREGABALIN (*CRX) 75 MG CAPSULE 150 MG PO (20:22)
[2025-04-27] MEDS: FAMOTIDINE 20 MG TABLET PO (20:23)
[2025-04-27] MEDS: MONTELUKAST SODIUM 10 MG TABLET PO (20:23)
[2025-04-27] MEDS: ASPIRIN 81 MG ENTERIC TABLET PO (20:24)
[2025-04-27] MEDS: SENNA/DOCUSATE SODIUM TABLET 2 TAB PO (20:24)
[2025-04-28] VITALS (17 sets, daily range): BP systolic 98–110; BP diastolic 45–52; PULSE 65–87; RESP 15–20; TEMP 36.1–36.7; O2SAT 93–98
[2025-04-28] MEDS: IPRATROPIUM 0.5 MG/ALBUTEROL SULFATE 2.5 MG (BASE) AMPUL.NEB 3 ML INHALATION ×4 (01:43→21:02)
[2025-04-28] MEDS: ACETAMINOPHEN 325 MG TABLET 650 MG PO ×3 (02:55→22:06)
[2025-04-28] MEDS: LINACLOTIDE 145 MCG CAPSULE PO (05:37)
[2025-04-28] MEDS: LEVOTHYROXINE SODIUM 100 MCG TABLET PO (05:37)
[2025-04-28 06:20] LABS: Hematocrit 36.9 % (37.0-47.0); Hemoglobin 11.4 g/dL (12.0-15.0); Mean Corpuscular HGB Conc 30.9 g/dl (32-36); Mean Corpuscular Hemoglobin 27.1 pg (26-34); Mean Corpuscular Volume 87.9 fl (80-100); Platelet Count Result 171 k/mm3 (150-375); Red Blood Count 4.20 M/mm3 (4.2-5.4); White Blood Count 6.9 K/mm3 (4.5-10.0)
[2025-04-28 06:35] LABS: Anion Gap 1 mmol/L (4-12); Blood Urea Nitrogen 4 mg/dL (7-17); Calcium 7.9 mg/dL (8.4-10.2); Carbon Dioxide 32 mmol/L (22-30); Chloride 104 mmol/L (98-107); Estimated CRCL calculation 61 ml/min; Estimated Glomerular Filt Rate > 60; Glucose 91 mg/dL (65-110); Potassium 3.3 mmol/L (3.4-5.0); Sodium 137 mmol/L (137-145)
--- NOTE | 2025-04-28 07:40 | P.PNIM_ITS ---
Assessment and Plan Assessment and Plan (1) Acute and chronic respiratory failure with hypoxia: Code(s): J96.21 - Acute and chronic respiratory failure with hypoxia Status: Acute Assessment and Plan: -pulmonology consult was placed. -she has a history of COPD and interstitial lung disease. -patient had a pulse ox reading of 82 initially. She was placed on oxygen at 2 L in the ER, nursing to wean as tolerated. -home O2 evaluation would greatly be appreciated prior to discharge -continue with Mucinex -I did offer steroids with the patient declined. She stated that steroids make her too anxious and she is already anxious. -continue with nebulizer treatments. -CTA pulmonary was reported no PE. -she also has a history of COPD. (2) Bronchiectasis: Code(s): J47.9 - Bronchiectasis, uncomplicated Status: Acute Assessment and Plan: -continue with Mucinex and DuoNebs. (3) Interstitial lung disease: Code(s): J84.9 - Interstitial pulmonary disease, unspecified Status: Acute Assessment and Plan: -continue with nebulizer treatments. -continue with Mucinex. -pulmonary consultation would greatly be appreciated, consult pending -patient was empirically started on azithromycin. QTC was within normal limits however continue to monitor. -she also has a history of COPD. -continue with Singulair (4) Fibromyalgia: Code(s): M79.7 - Fibromyalgia Status: Acute Assessment and Plan: -continue with Lyrica (5) Anxiety: Code(s): F41.9 - Anxiety disorder, unspecified Status: Acute Assessment and Plan: Continue with wellbutrin and Xanax home dose (6) Depression: Code(s): F32.A - Depression, unspecified Status: Acute Assessment and Plan: Continue with wellbutrin (7) Hypothyroidism: Code(s): E03.9 - Hypothyroidism, unspecified Status: Acute Assessment and Plan: Continue levothyroxine (8) High cholesterol: Code(s): E78.00 - Pure hypercholesterolemia, unspecified Status: Acute Assessment and Plan: Continue with Zetia and Crestor Medical Record Review I have reviewed the following patient records and this information was taken into consideration when formulating the assessment and plan.: previous labs, previous ER visits and previous hospitalizations Subjective Date/time seen: 04/28/25 07:40 Interval history: Patient seen for a follow up visit. Patient sitting up in chair, in no acute distress. Patient denies acute pain. Patient continues on IV azithromycin. WBC count improved to 6.9 today. Patient's potassium level 3.3, give PO potassium replacement. Patient being evaluated by PT/OT for discharge planning. Pulmonology consulted to see patient. Patient will need a home oxygen study prior to discharge. Review of Systems Review of Systems: All systems reviewed & are unremarkable except as noted in HPI and below Exam Const: General: comfortable and no acute distress HENMT: Head: normocephalic Ears: hearing grossly normal bilaterally Eyes: General: appearance normal, both eyes and all related structures Eyelids: eyelids normal Neck: Neck: normal visual inspection Resp: Effort & Inspection: normal respiratory effort Auscultation: diminished lung sounds diffuse Cardio: Rate: regular rate Rhythm: regular rhythm GI: GI Palp: Yes Soft to palpation Auscultation: normal bowel sounds Skin: General skin exam: normal color and no rashes or lesions noted Neuro: Speech: normal speech Motor exam (neuro): 5/5 motor strength present throughout Sensory Exam: normal sensation Extrem: General: normal to inspection Psych: Mental Status: mental status grossly normal Affect: normal affect Objective Data Vital Signs Vital Signs: Vital Signs - 24 hr 04/27/25 08:00 04/27/25 08:40 04/27/25 12:00 Temperature Pulse Rate 72 83 Respiratory Rate Blood Pressure Pulse Oximetry 93 Oxygen Delivery Room Air 04/27/25 14:00 04/27/25 16:00 04/27/25 19:31 Temperature 98.0 F Pulse Rate 85 90 74 Respiratory Rate 16 18 Blood Pressure 114/52 L Pulse Oximetry 91 Oxygen Delivery 04/27/25 19:32 04/27/25 19:40 04/27/25 20:00 Temperature Pulse Rate 76 Respiratory Rate 18 Blood Pressure Pulse Oximetry 96 Oxygen Delivery Room Air Room Air 04/27/25 20:00 04/27/25 21:44 04/28/25 00:00 Temperature 97.4 F L Pulse Rate 76 72 72 Respiratory Rate 16 Blood Pressure 98/42 L Pulse Oximetry 91 Oxygen Delivery 04/28/25 01:44 04/28/25 01:52 04/28/25 04:00 Temperature Pulse Rate 68 69 66 Respiratory Rate 18 18 Blood Pressure Pulse Oximetry Oxygen Delivery 04/28/25 06:00 Temperature 97.4 F L Pulse Rate 70 Respiratory Rate 18 Blood Pressure 98/50 L Pulse Oximetry 95 Oxygen Delivery Intake/Output Intake/Output: Intake & Output 04/25/25 04/26/25 04/27/25 04/28/25 23:59 23:59 23:59 23:59 Intake Total 1110 750 Output Total 3450 2750 Balance -2340 -1999 Meds/Results Medications: Active Medications Generic Name Dose Route Start Last Admin Trade Name Freq PRN Reason Stop Dose Admin Acetaminophen 650 mg 04/27/25 01:29 04/28/25 02:55 Acetaminophen 325 Mg Tablet PO 650 mg Q4H PRN Administration Mild Pain (1-3) or Fever Albuterol/Ipratropium 3 ml 04/27/25 02:00 04/28/25 01:43 Ipratropium 0.5 Mg/Albuterol Sulfate 2.5 Mg (Base) Ampul.Neb 3 Ml INHALATION 3 ml Q6HRT SINGH Administration Alprazolam 1 mg 04/27/25 09:00 04/27/25 20:23 Alprazolam (*Crx) 0.5 Mg Tablet PO 1 mg QID SINGH Administration Aspirin 81 mg 04/27/25 21:00 04/27/25 20:24 Aspirin 81 Mg Enteric Tablet PO 81 mg HS SINGH Administration Bupropion HCl 150 mg 04/28/25 09:00 Bupropion Hcl Xl (24 Hr) 150 Mg Tabcr PO DAILY SING[facility] Ezetimibe 10 mg 04/27/25 09:00 04/27/25 08:46 Ezetimibe 10 Mg Tablet PO 10 mg DAILY SING[facility] Administration Ergocalciferol 1,250 mcg 04/27/25 07:00 Ergocalciferol (Vitamin D2) 1,250 Mcg (50,000 Units) Capsule PO .BIWEEKLY SINGH Famotidine 20 mg 04/27/25 21:00 04/27/25 20:23 Famotidine 20 Mg Tablet PO 20 mg HS SINGH Administration Fluticasone Propionate 2 spray 04/27/25 09:00 04/27/25 08:47 Fluticasone Propionate 0.05% Na Spr 16 Gm Btl (*Bkc) NASAL 2 spray QAM SINGH Administration Guaifenesin 1,200 mg 04/27/25 09:00 04/27/25 20:22 Guaifenesin 12 Hr 600 Mg Tabcr PO 1,200 mg Q12HR SINGH Administration Azithromycin 500 mg/ Sodium 250 mls @ 250 mls/hr 04/27/25 08:00 04/27/25 09:38 Chloride IVPB 05/01/25 09:59 Infused QAM SING[facility] Infusion Isosorbide Mononitrate 30 mg 04/28/25 09:00 Isosorbide Mononitrate 30 Mg Tab.Er.24h PO DAILY [facility] Levothyroxine Sodium 100 mcg 04/28/25 06:30 04/28/25 05:37 Levothyroxine Sodium 100 Mcg Tablet PO 100 mcg DAILY@0630 SING[facility] Administration Linaclotide 145 mcg 04/28/25 06:30 04/28/25 05:37 Linaclotide 145 Mcg Capsule PO 145 mcg DAILY@0630 SING[facility] Administration Loratadine 10 mg 04/28/25 09:00 Loratadine 10 Mg Tablet PO QAM [facility] Mirabegron 50 mg 04/28/25 09:00 Mirabegron 50 Mg Er Tablet PO DAILY [facility] Miscellaneous Information 1 each 04/27/25 00:01 Vit D 50,000 Units Biweekly - What Day Due? XX 05/27/25 00:00 CLARIFY [facility] Montelukast Sodium 10 mg 04/27/25 21:00 04/27/25 20:23 Montelukast Sodium 10 Mg Tablet PO 10 mg HS SINGH Administration Ondansetron HCl 4 mg 04/27/25 01:29 Ondansetron Inj 4 Mg/2 Ml Vial IV PUSH Q4H PRN Nausea Pantoprazole Sodium 20 mg 04/28/25 09:00 Pantoprazole Sod Sesquihydrate 20 Mg Tab PO DAILY [facility] Pregabalin 75 mg 04/27/25 17:00 04/27/25 16:51 Pregabalin (*Crx) 75 Mg Capsule PO 75 mg BID SINGH Administration Pregabalin 150 mg 04/27/25 21:00 04/27/25 20:22 Pregabalin (*Crx) 75 Mg Capsule PO 150 mg HS SINGH Administration Rosuvastatin Calcium 40 mg 04/27/25 09:00 04/27/25 08:48 Rosuvastatin 20 Mg Tablet PO 40 mg DAILY SING[facility] Administration Senna/Docusate Sodium 2 tab 04/27/25 21:00 04/27/25 20:24 Senna/Docusate Sodium Tablet PO 2 tab QHS SINGH Administration Radiology Results: ITS Impressions Head CT 04/27/25 06:49 IMPRESSION: 1. No acute intracranial findings. Chest X-Ray 04/27/25 09:25 IMPRESSION: 1. Chronic pulmonary fibrosis. 2. Superimposed edema or pneumonitis cannot be excluded. Chest/Abdomen/Pelvis CTA 04/27/25 21:24 IMPRESSION: 1. No pulmonary embolism. 2. NSIP pattern chronic initial lung disease. 3. Large ball of stool at the rectum consistent with constipation with some stranding in the surrounding perirectal fat which could be due to secondary stercoral colitis. Labs Labs: Laboratory Results - last 24 hr 04/28/25 04:48 WBC 6.9 RBC 4.20 Hgb 11.4 L Hct 36.9 L MCV 87.9 MCH 27.1 MCHC 30.9 L RDW 13.4 Plt Count 171 MPV 11.3 H Sodium 137 Potassium 3.3 L Chloride 104 Carbon Dioxide 32 H Anion Gap 1 L BUN 4 L Creatinine 0.50 L Estim Creat Clear Calc 61 Estimated GFR > 60 Glucose 91 Calcium 7.9 L Quality VTE Prophylaxis VTE prophylaxis: mechanical ordered
[2025-04-28] MEDS: buPROPion HCL XL (24 HR) 150 MG TABCR PO (08:54)
[2025-04-28] MEDS: ROSUVASTATIN 20 MG TABLET 40 MG PO (08:54)
[2025-04-28] MEDS: POTASSIUM CHLORIDE 20 MEQ ER TABLET 40 MEQ PO (08:54)
[2025-04-28] MEDS: guaiFENesin 12 HR 600 MG TABCR 1200 MG PO ×2 (08:55→20:53)
[2025-04-28] MEDS: AZITHROMYCIN IV 500 MG in SODIUM CHLORIDE 0.9% IV 250 ML IVPB (08:55)
[2025-04-28] MEDS: LORATADINE 10 MG TABLET PO (08:55)
[2025-04-28] MEDS: PANTOPRAZOLE SOD SESQUIHYDRATE 20 MG TAB PO (08:55)
[2025-04-28] MEDS: MIRABEGRON 50 MG ER TABLET PO (08:55)
[2025-04-28] MEDS: EZETIMIBE 10 MG TABLET PO (08:55)
[2025-04-28] MEDS: ALPRAZolam (*CRX) 0.5 MG TABLET 1 MG PO ×4 (08:55→20:54)
[2025-04-28] MEDS: PREGABALIN (*CRX) 75 MG CAPSULE PO ×2 (08:55→16:35)
[2025-04-28] MEDS: FLUTICASONE PROPIONATE 0.05% NA SPR 16 GM BTL (*BKC) 2 SPRAY NASAL (12:36)
[2025-04-28] MEDS: BENZONATATE 100 MG CAPSULE 200 MG PO (15:55)
[2025-04-28] MEDS: ONDANSETRON INJ 4 MG/2 ML VIAL IV PUSH (18:29)
--- NOTE | 2025-04-28 20:32 | PM.CNPUL ---
Assessment and Plan Assessment and plan (1) Hypoxemia requiring supplemental oxygen: Code(s): R09.02 - Hypoxemia; Z99.81 - Dependence on supplemental oxygen Status: Acute Assessment and Plan: She required O2 this admission, was 82% on room air, improved with nasal cannula, now has O2 off, sat is in hte 90% range, would benefot form O2 with sleep as ILD usually leads to drop in O2 saturiaotn during exertion and sleep. (2) Interstitial lung disease: Code(s): J84.9 - Interstitial pulmonary disease, unspecified Status: Acute Assessment and Plan: NSIP pattern, documented since 2020, managed at [facility] ILD clinic, last visit October 2023, lack of transportaion she was advance to the point that Dr Richard planned to start anti-fibrotics, but the pt did not return. She would benefot from a trial of steroids this admission, and said she would think about it. Plan O2 with sleep Trial of steroids O2 study before discharge Pulmonary rehab recommended Follow up in the pulmonary office. She was distrught about waiting until her visit scheduled in the spring, but she will be a hosital follow up much sooner, 3-4 weeks. will follow with you. History of Present Illness History of Present Illness Consult date: 04/28/25 Requesting physician: Kristi Mckeon APRN Chief complaint: Hypoxemia, bronchiectasis, urinary retention Narrative: pt was seen Apr 28, 2025 at 19:45 Room 300 NEW: Angelia Salcedo is a 80-year-old female admitted with increased shortness of breath, low saturation to 82% on room air. She has interstitial lung disease, NSIP pattern, negative serologic evaluation, negative rheumatoid factor, CCP, TIFFANY, dsDNA, TODD, Scl-70; she has hypogammaglobulinemia o IVIG through Dr Little [facility] [facility] monthly, tracheobronchomalacia, vocal cord dysfunction, had injection of botulinum toxin in left true vocal cord fol 2014, and pneumonia Dec 2022. Since starting IVIG, has had fewer infections. Uses albuterol rescue inhaler p.r.n. She was a patient at the ILD clinic with Dr Richard until she was no longer able to drive to [facility], last note in our chart was October 31, 2023, a year and a half ago. She moved into [facility] about a year ago. She has advanced clubbing on fingernails and toes, is short of breath with any exertion, has decreased memory and urinary incontinence with exertion. She tells me that she has been at [facility] a year because all of her children work, cannot take care of her at home. She is just now adjusting to life in [facility], was really upset about getting moved there, has limited access to getting out and about. Her daughter takes her to shop once a week and they visit for several hours. 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 She smoked 1 ppd or more from age 18 to 29, no vaping or marijuana. PMH: Bipolar/ anxiety and depression, sees Natalie at [facility], is on Wellbutrin, no longer on Geodon. Darby esophagus, NSIP with negative serologic work up, initial CT with ILD changes 2020, hypothyroidism, asthma, TBM, VC dysfunction, Botox injection Left true vocal cord fold 2014, HTN, neuropathy, pneumonia Dec 2022 with stopping of LABA/ICS due to concern for recurrent pneumonia. Rhinitis, used ipratropium nasal spray and Zyrtec. Has used sinus rinses in the past. She sees dermatology for hives, has had itching and redness back of nek for 3 weeks. Sometimes has itching right posterior arm, had a topical treatment recently. 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 Fibromyalgia Neuralgia Hypogammaglobulinemia Darby esophagus Interstitial lung disease Bipolar disorder Hypothyroidism High cholesterol Depression Anxiety Neuropathic pain Surgical History Surgical History (Updated 04/27/25 @ 07:10 by Kristi Mckeon APRN) History of bladder surgery Medtronic bladder stimulator H/O cataract extraction H/O cardiac catheterization Without intervention Hx of cholecystectomy History of tracheostomy H/O colonoscopy H/O rectal polypectomy H/O: hysterectomy History of appendectomy Family History Family History (Updated 04/27/25 @ 07:11 by Kristi Mckeon APRN) Mother Diabetes mellitus Sibling Diabetes mellitus Other Heart disease Hypertension Social History Social History (Updated 04/27/25 @ 07:12 by Kristi Mckeon APRN) Social History: The patient is retired from [employer]. She has 5 children. She resides at [facility]. Code status: Full code Smoking status: Former smoker Tobacco type: cigarettes Second hand tobacco smoke exposure: Yes Smoking end date: 05/01/73 Alcohol intake: never Substance use: current Substance use type: prescription drug Lack of Transportation: No Lack of Food: Never True Current Housing: I Have Housing Concerned About Future Housing: No Difficulty Paying Gas/Electric Bills: No Difficulty Paying for Meds: No Currently Unemployed: No Education: High School Diploma/GED Difficulty w/ Childcare or Family Care: No Living arrangements: assisted living Spiritual care concerns: No Meds Home Medications and Allergies Home Medications ?Medication ?Instructions ?Recorded ?Confirmed ?Type albuterol sulfate 90 mcg/actuation 2 inh inhalation Q8H PRN shortness 12/17/24 04/27/25 History aerosol inhaler (Ventolin HFA) of breath or wheezing alprazolam 1 mg tablet 1 mg PO QID anxiety 12/17/24 04/27/25 History aspirin 81 mg tablet 81 mg PO HS 12/17/24 04/27/25 History cetirizine 10 mg tablet (Allergy 10 mg PO DAILY allergy symptoms 12/17/24 04/27/25 History Relief (cetirizine)) cyanocobalamin (vitamin B-12) 1,000 mcg subcut MONTHLY 12/17/24 04/27/25 History 1,000 mcg/mL injection kit ezetimibe 10 mg tablet 10 mg PO DAILY 12/17/24 04/27/25 History fluticasone propionate 50 1 inh inhalation DAILY 12/17/24 04/27/25 History mcg/actuation blister powder for inhalation montelukast 10 mg tablet 10 mg PO HS 12/17/24 04/27/25 History nitroglycerin 0.4 mg sublingual 0.4 mg sublingual Q5M PRN chest 12/17/24 04/27/25 History tablet pain rosuvastatin 40 mg tablet 40 mg PO DAILY 12/17/24 04/27/25 History sennosides 8.6 mg-docusate sodium 2 tab-cap PO QHS 12/17/24 04/27/25 History 50 mg tablet acetaminophen 500 mg capsule 500 mg PO Q8H 04/27/25 04/27/25 History bupropion HCl 150 mg 24 hr tablet, 150 mg PO DAILY 04/27/25 04/27/25 History extended release carboxymethylcellulose sodium 0.5 1 drp EACH EYE TID 04/27/25 04/27/25 History % eye drops ergocalciferol (vitamin D2) 1,250 1,250 mcg PO .BIWEEKLY 04/27/25 04/27/25 History mcg (50,000 unit) capsule (Vitamin D2) famotidine 20 mg tablet 20 mg PO HS 04/27/25 04/27/25 History isosorbide mononitrate 30 mg 30 mg PO DAILY 04/27/25 04/27/25 History tablet,extended release 24 hr levothyroxine 100 mcg tablet 100 mcg PO 0630 04/27/25 04/27/25 History linaclotide 145 mcg capsule 145 mcg PO DAILY 04/27/25 04/27/25 History (Linzess) mirabegron 50 mg tablet,extended 50 mg PO DAILY 04/27/25 04/27/25 History release 24 hr (Myrbetriq) pantoprazole 20 mg tablet,delayed 20 mg PO DAILY 04/27/25 04/27/25 History release pregabalin 150 mg capsule 150 mg PO HS 04/27/25 04/27/25 History pregabalin 75 mg capsule 75 mg PO BID 04/27/25 04/27/25 History triamcinolone acetonide 55 mcg 2 spray intranasal DAILY 04/27/25 04/27/25 History nasal spray aerosol (24 Hour Nasal Allergy) Allergies Allergy/AdvReac Type Severity Reaction Status Date / Time codeine Allergy Mild Unknown Verified 04/27/25 03:43 nitrofurantoin Allergy Mild Unknown Verified 04/27/25 03:43 oxcarbazepine Allergy Mild Unknown Verified 04/27/25 03:43 Vital Signs Vital Signs - 24 hr 04/27/25 21:44 04/28/25 00:00 04/28/25 01:44 Temperature 36.3 C L Pulse Rate 72 72 68 Respiratory Rate 16 18 Blood Pressure 98/42 L Pulse Oximetry 91 Oxygen Delivery 04/28/25 01:52 04/28/25 04:00 04/28/25 06:00 Temperature 36.3 C L Pulse Rate 69 66 70 Respiratory Rate 18 18 Blood Pressure 98/50 L Pulse Oximetry 95 Oxygen Delivery 04/28/25 07:41 04/28/25 07:42 04/28/25 07:44 Temperature Pulse Rate 67 67 65 Respiratory Rate 18 18 18 Blood Pressure Pulse Oximetry 93 Oxygen Delivery Room Air 04/28/25 08:55 04/28/25 08:55 04/28/25 08:55 Temperature Pulse Rate 73 75 Respiratory Rate Blood Pressure 103/45 L Pulse Oximetry 95 Oxygen Delivery Room Air 04/28/25 12:00 04/28/25 13:37 04/28/25 14:00 Temperature 36.1 C L Pulse Rate 77 87 77 Respiratory Rate 20 15 Blood Pressure 100/52 L Pulse Oximetry 98 Oxygen Delivery 04/28/25 16:00 Temperature Pulse Rate 86 Respiratory Rate Blood Pressure Pulse Oximetry Oxygen Delivery Exam Narrative: GEN: Alert, oriented, not in distress. Poor memory, male pattern baldness, has a wig here, says all the women in her family have it. HEENT: pupils are equal, EOMI, symmetrical face; oral membranes dry, whitish coating, Mallampati II airway, mild redness posterior right neck, macular, nothing raised. NECK: Trachea is midline CHEST: Equal air entry, symmetric excursion, crackles louder in bases, no wheezing, say she has wheezing at times. CV: Regular S1S2 no m/g/r ABD : (+) bowel sounds Extremities : marked clubbing in fingernails; has also on toe nails. No cyanosis, or edema. No calf tenderness. PSYCH: Decreased memory. Normal speech, gait is not tested. Results Laboratory Findings 04/29/25 05:39 04/29/25 05:39 Abnormal lab findings: Abnormal Labs 04/26/25 04/28/25 22:45 04:48 WBC 13.3 H Hgb 11.4 L Hct 36.9 L MCHC 30.9 L MPV 10.5 H 11.3 H Neut % (Auto) 79.5 H Lymph % (Auto) 10.0 L [place] # (Auto) 1.1 H Abs Immat Gran (auto) 0.04 H Absolute Neuts (auto) 10.6 H Potassium 3.3 L Carbon Dioxide 31 H 32 H Anion Gap 1 L BUN 4 L Creatinine 0.60 L 0.50 L Calcium 7.9 L AST 39 H TSH (Reflex) 4.790 H
[2025-04-28] MEDS: FAMOTIDINE 20 MG TABLET PO (20:53)
[2025-04-28] MEDS: ASPIRIN 81 MG ENTERIC TABLET PO (20:53)
[2025-04-28] MEDS: SENNA/DOCUSATE SODIUM TABLET 2 TAB PO (20:53)
[2025-04-28] MEDS: MONTELUKAST SODIUM 10 MG TABLET PO (20:54)
[2025-04-28] MEDS: PREGABALIN (*CRX) 75 MG CAPSULE 150 MG PO (20:54)
[2025-04-29] VITALS (18 sets, daily range): BP systolic 100–115; BP diastolic 42–65; PULSE 58–77; RESP 18–26; TEMP 36.1–36.7; O2SAT 98–100
[2025-04-29] MEDS: IPRATROPIUM 0.5 MG/ALBUTEROL SULFATE 2.5 MG (BASE) AMPUL.NEB 3 ML INHALATION ×4 (01:12→20:39)
[2025-04-29] MEDS: LINACLOTIDE 145 MCG CAPSULE PO (05:32)
[2025-04-29] MEDS: LEVOTHYROXINE SODIUM 100 MCG TABLET PO (05:32)
[2025-04-29 07:00] LABS: Hematocrit 36.0 % (37.0-47.0); Hemoglobin 11.0 g/dL (12.0-15.0); Mean Corpuscular HGB Conc 30.6 g/dl (32-36); Mean Corpuscular Hemoglobin 26.9 pg (26-34); Mean Corpuscular Volume 88.0 fl (80-100); Platelet Count Result 170 k/mm3 (150-375); Red Blood Count 4.09 M/mm3 (4.2-5.4); White Blood Count 5.7 K/mm3 (4.5-10.0)
[2025-04-29 07:10] LABS: Anion Gap 1 mmol/L (4-12); Blood Urea Nitrogen 3 mg/dL (7-17); Calcium 7.9 mg/dL (8.4-10.2); Carbon Dioxide 32 mmol/L (22-30); Chloride 105 mmol/L (98-107); Estimated CRCL calculation 56 ml/min; Estimated Glomerular Filt Rate > 60; Glucose 96 mg/dL (65-110); Potassium 4.0 mmol/L (3.4-5.0); Sodium 138 mmol/L (137-145)
[2025-04-29] MEDS: AZITHROMYCIN IV 500 MG in SODIUM CHLORIDE 0.9% IV 250 ML IVPB (08:10)
[2025-04-29] MEDS: ROSUVASTATIN 20 MG TABLET 40 MG PO (08:11)
[2025-04-29] MEDS: PANTOPRAZOLE SOD SESQUIHYDRATE 20 MG TAB PO (08:11)
[2025-04-29] MEDS: LORATADINE 10 MG TABLET PO (08:12)
[2025-04-29] MEDS: ALPRAZolam (*CRX) 0.5 MG TABLET 1 MG PO ×4 (08:12→20:26)
[2025-04-29] MEDS: EZETIMIBE 10 MG TABLET PO (08:12)
[2025-04-29] MEDS: buPROPion HCL XL (24 HR) 150 MG TABCR PO (08:12)
[2025-04-29] MEDS: PREGABALIN (*CRX) 75 MG CAPSULE PO ×2 (08:12→16:33)
[2025-04-29] MEDS: BENZONATATE 100 MG CAPSULE 200 MG PO ×3 (08:12→16:33)
[2025-04-29] MEDS: MIRABEGRON 50 MG ER TABLET PO (08:12)
[2025-04-29] MEDS: FLUTICASONE PROPIONATE 0.05% NA SPR 16 GM BTL (*BKC) 2 SPRAY NASAL (08:13)
--- NOTE | 2025-04-29 08:33 | PM.IMPN2 ---
Assessment and Plan Assessment and Plan (1) Acute and chronic respiratory failure with hypoxia: Code(s): J96.21 - Acute and chronic respiratory failure with hypoxia Status: Acute Assessment and Plan: -pulmonology consult was placed. -she has a history of COPD and interstitial lung disease. -patient had a pulse ox reading of 82 initially. She was placed on oxygen at 2 L in the ER, nursing to wean as tolerated. -home O2 evaluation would greatly be appreciated prior to discharge -continue with Mucinex -I did offer steroids with the patient declined. She stated that steroids make her too anxious and she is already anxious. -continue with nebulizer treatments. -CTA pulmonary was reported no PE. -she also has a history of COPD. -plan for home o2 study in am and discharge back to AL if respiratory status remains stable (2) Bronchiectasis: Code(s): J47.9 - Bronchiectasis, uncomplicated Status: Acute Assessment and Plan: -continue with Mucinex and DuoNebs. (3) Interstitial lung disease: Code(s): J84.9 - Interstitial pulmonary disease, unspecified Status: Acute Assessment and Plan: -continue with nebulizer treatments. -continue with Mucinex. -pulmonary consultation would greatly be appreciated, consult pending -patient was empirically started on azithromycin. QTC was within normal limits however continue to monitor. -she also has a history of COPD. -continue with Singulair (4) Fibromyalgia: Code(s): M79.7 - Fibromyalgia Status: Acute Assessment and Plan: -continue with Lyrica (5) Anxiety: Code(s): F41.9 - Anxiety disorder, unspecified Status: Acute Assessment and Plan: Continue with wellbutrin and Xanax home dose (6) Depression: Code(s): F32.A - Depression, unspecified Status: Acute Assessment and Plan: Continue with wellbutrin (7) Hypothyroidism: Code(s): E03.9 - Hypothyroidism, unspecified Status: Acute Assessment and Plan: Continue levothyroxine (8) High cholesterol: Code(s): E78.00 - Pure hypercholesterolemia, unspecified Status: Acute Assessment and Plan: Continue with Zetia and Crestor Medical Record Review I have reviewed the following patient records and this information was taken into consideration when formulating the assessment and plan.: previous labs, previous ER visits and previous hospitalizations Subjective Date/time seen: 04/29/25 08:33 Interval history: Patient seen for a follow up visit. Patient sitting up in the chair, in no acute distress. Patient has on oxygen by [place]. Patient was seen by pulmonology yesterday. 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 Patient continues on IV azithromycin. Patient is anxious about her discharge plan. Per PT/OT notes patient will discharge back to her AL facility. Home oxygen study ordered to be completed prior to discharge. Plan for discharge home tomorrow if patient remains stable. Review of Systems Review of Systems: All systems reviewed & are unremarkable except as noted in HPI and below Exam Const: General: comfortable and no acute distress HENMT: Head: normocephalic Ears: hearing grossly normal bilaterally Eyes: General: appearance normal, both eyes and all related structures Eyelids: eyelids normal Neck: Neck: normal visual inspection Resp: Effort & Inspection: normal respiratory effort Auscultation: diminished lung sounds diffuse Cardio: Rate: regular rate Rhythm: regular rhythm GI: GI Palp: Yes Soft to palpation Auscultation: normal bowel sounds Skin: General skin exam: normal color and no rashes or lesions noted Neuro: Speech: normal speech Motor exam (neuro): 5/5 motor strength present throughout Sensory Exam: normal sensation Extrem: General: normal to inspection Psych: Mental Status: mental status grossly normal Affect: normal affect Objective Data Vital Signs Vital Signs: Vital Signs - 24 hr 04/28/25 08:55 04/28/25 08:55 04/28/25 08:55 Temperature Pulse Rate 73 75 Respiratory Rate Blood Pressure 103/45 L Pulse Oximetry 95 Oxygen Delivery Room Air 04/28/25 12:00 04/28/25 13:37 04/28/25 14:00 Temperature 96.9 F L Pulse Rate 77 87 77 Respiratory Rate 20 15 Blood Pressure 100/52 L Pulse Oximetry 98 Oxygen Delivery 04/28/25 16:00 04/28/25 20:00 04/28/25 20:00 Temperature Pulse Rate 86 85 78 Respiratory Rate 18 Blood Pressure Pulse Oximetry 94 Oxygen Delivery Room Air 04/28/25 21:02 04/28/25 21:12 04/28/25 22:00 Temperature 98.1 F Pulse Rate 76 77 85 Respiratory Rate 20 20 18 Blood Pressure 110/46 L Pulse Oximetry 94 Oxygen Delivery 04/29/25 00:00 04/29/25 01:12 04/29/25 01:21 Temperature Pulse Rate 66 65 66 Respiratory Rate 20 20 Blood Pressure Pulse Oximetry Oxygen Delivery 04/29/25 04:00 04/29/25 04:48 Temperature 97.0 F L Pulse Rate 77 73 Respiratory Rate 18 Blood Pressure 115/56 L Pulse Oximetry 98 Oxygen Delivery Intake/Output Intake/Output: Intake & Output 04/26/25 04/27/25 04/28/25 04/29/25 23:59 23:59 23:59 23:59 Intake Total 1110 3270 500 Output Total 3450 3850 1400 Balance -8510 -963 -900 Meds/Results Medications: Active Medications Generic Name Dose Route Start Last Admin Trade Name Freq PRN Reason Stop Dose Admin Acetaminophen 650 mg 04/27/25 01:29 04/28/25 22:06 Acetaminophen 325 Mg Tablet PO 650 mg Q4H PRN Administration Mild Pain (1-3) or Fever Albuterol/Ipratropium 3 ml 04/27/25 02:00 04/29/25 01:12 Ipratropium 0.5 Mg/Albuterol Sulfate 2.5 Mg (Base) Ampul.Neb 3 Ml INHALATION 3 ml Q6HRT SINGH Administration Alprazolam 1 mg 04/27/25 09:00 04/29/25 08:12 Alprazolam (*Crx) 0.5 Mg Tablet PO 1 mg QID SINGH Administration Aspirin 81 mg 04/27/25 21:00 04/28/25 20:53 Aspirin 81 Mg Enteric Tablet PO 81 mg HS SINGH Administration Benzonatate 200 mg 04/28/25 17:00 04/29/25 08:12 Benzonatate 100 Mg Capsule PO 200 mg TID SINGH Administration Bupropion HCl 150 mg 04/28/25 09:00 04/29/25 08:12 Bupropion Hcl Xl (24 Hr) 150 Mg Tabcr PO 150 mg DAILY SINGH Administration Ezetimibe 10 mg 04/27/25 09:00 04/29/25 08:12 Ezetimibe 10 Mg Tablet PO 10 mg DAILY SINGH Administration Ergocalciferol 1,250 mcg 05/05/25 09:00 Ergocalciferol (Vitamin D2) 1,250 Mcg (50,000 Units) Capsule PO 05/05/25 09:01 ONCE ONE Famotidine 20 mg 04/27/25 21:00 04/28/25 20:53 Famotidine 20 Mg Tablet PO 20 mg HS SINGH Administration Fluticasone Propionate 2 spray 04/27/25 09:00 04/29/25 08:13 Fluticasone Propionate 0.05% Na Spr 16 Gm Btl (*Bkc) NASAL 2 spray QAM SINGH Administration Guaifenesin/Dextromethorphan 10 ml 04/28/25 22:00 04/29/25 08:18 Guaifenesin/Dextromethorphan 10 Ml Udc PO 10 ml Q4HR SINGH Administration Azithromycin 500 mg/ Sodium 250 mls @ 250 mls/hr 04/27/25 08:00 04/29/25 08:10 Chloride IVPB 05/01/25 09:59 250 mls/hr QAM SINGH Administration Isosorbide Mononitrate 30 mg 04/28/25 09:00 04/28/25 10:19 Isosorbide Mononitrate 30 Mg Tab.Er.24h PO Not Given DAILY SINGH Levothyroxine Sodium 100 mcg 04/28/25 06:30 04/29/25 05:32 Levothyroxine Sodium 100 Mcg Tablet PO 100 mcg DAILY@0630 SINGH Administration Linaclotide 145 mcg 04/28/25 06:30 04/29/25 05:32 Linaclotide 145 Mcg Capsule PO 145 mcg DAILY@0630 SINGH Administration Loratadine 10 mg 04/28/25 09:00 04/29/25 08:12 Loratadine 10 Mg Tablet PO 10 mg QAM SINGH Administration Mirabegron 50 mg 04/28/25 09:00 04/29/25 08:12 Mirabegron 50 Mg Er Tablet PO 50 mg DAILY SINGH Administration Montelukast Sodium 10 mg 04/27/25 21:00 04/28/25 20:54 Montelukast Sodium 10 Mg Tablet PO 10 mg HS SINGH Administration Ondansetron HCl 4 mg 04/27/25 01:29 04/28/25 18:29 Ondansetron Inj 4 Mg/2 Ml Vial IV PUSH 4 mg Q4H PRN Administration Nausea Pantoprazole Sodium 20 mg 04/28/25 09:00 04/29/25 08:11 Pantoprazole Sod Sesquihydrate 20 Mg Tab PO 20 mg DAILY SINGH Administration Pregabalin 75 mg 04/27/25 17:00 04/29/25 08:12 Pregabalin (*Crx) 75 Mg Capsule PO 75 mg BID SINGH Administration Pregabalin 150 mg 04/27/25 21:00 04/28/25 20:54 Pregabalin (*Crx) 75 Mg Capsule PO 150 mg HS SINGH Administration Rosuvastatin Calcium 40 mg 04/27/25 09:00 04/29/25 08:11 Rosuvastatin 20 Mg Tablet PO 40 mg DAILY SINGH Administration Senna/Docusate Sodium 2 tab 04/27/25 21:00 04/28/25 20:53 Senna/Docusate Sodium Tablet PO 2 tab QHS SINGH Administration Radiology Results: ITS Impressions Head CT 04/27/25 06:49 IMPRESSION: 1. No acute intracranial findings. Chest X-Ray 04/27/25 09:25 IMPRESSION: 1. Chronic pulmonary fibrosis. 2. Superimposed edema or pneumonitis cannot be excluded. Chest/Abdomen/Pelvis CTA 04/27/25 21:24 IMPRESSION: 1. No pulmonary embolism. 2. NSIP pattern chronic initial lung disease. 3. Large ball of stool at the rectum consistent with constipation with some stranding in the surrounding perirectal fat which could be due to secondary stercoral colitis. Labs Labs: Laboratory Results - last 24 hr 04/29/25 05:39 WBC 5.7 RBC 4.09 L Hgb 11.0 L Hct 36.0 L MCV 88.0 MCH 26.9 MCHC 30.6 L RDW 13.4 Plt Count 170 MPV 11.2 H Sodium 138 Potassium 4.0 Chloride 105 Carbon Dioxide 32 H Anion Gap 1 L BUN 3 L Creatinine 0.55 L Estim Creat Clear Calc 56 Estimated GFR > 60 Glucose 96 Calcium 7.9 L Quality VTE Prophylaxis VTE prophylaxis: mechanical ordered
[2025-04-29] MEDS: MAGNESIUM HYDROXIDE SUSP 30 ML UDC PO (11:39)
[2025-04-29] MEDS: ACETAMINOPHEN 325 MG TABLET 650 MG PO (13:02)
[2025-04-29] MEDS: SENNA/DOCUSATE SODIUM TABLET 2 TAB PO (20:26)
[2025-04-29] MEDS: ASPIRIN 81 MG ENTERIC TABLET PO (20:26)
[2025-04-29] MEDS: PREGABALIN (*CRX) 75 MG CAPSULE 150 MG PO (20:27)
[2025-04-29] MEDS: FAMOTIDINE 20 MG TABLET PO (20:27)
[2025-04-29] MEDS: MONTELUKAST SODIUM 10 MG TABLET PO (20:28)
[2025-04-30] VITALS (13 sets, daily range): BP systolic 105–137; BP diastolic 51–57; PULSE 64–101; RESP 15–18; TEMP 35.8–36.6; O2SAT 87–99
[2025-04-30] MEDS: IPRATROPIUM 0.5 MG/ALBUTEROL SULFATE 2.5 MG (BASE) AMPUL.NEB 3 ML INHALATION ×2 (01:51→08:44)
[2025-04-30] MEDS: LEVOTHYROXINE SODIUM 100 MCG TABLET PO (05:27)
[2025-04-30] MEDS: LINACLOTIDE 145 MCG CAPSULE PO (05:27)
[2025-04-30 06:24] LABS: Hematocrit 35.3 % (37.0-47.0); Hemoglobin 10.5 g/dL (12.0-15.0); Mean Corpuscular HGB Conc 29.7 g/dl (32-36); Mean Corpuscular Hemoglobin 26.6 pg (26-34); Mean Corpuscular Volume 89.4 fl (80-100); Platelet Count Result 171 k/mm3 (150-375); Red Blood Count 3.95 M/mm3 (4.2-5.4); White Blood Count 5.6 K/mm3 (4.5-10.0)
[2025-04-30 06:37] LABS: Anion Gap -1 mmol/L (4-12); Blood Urea Nitrogen 3 mg/dL (7-17); Calcium 8.0 mg/dL (8.4-10.2); Carbon Dioxide 32 mmol/L (22-30); Chloride 105 mmol/L (98-107); Estimated CRCL calculation 58 ml/min; Estimated Glomerular Filt Rate > 60; Glucose 93 mg/dL (65-110); Potassium 4.4 mmol/L (3.4-5.0); Sodium 136 mmol/L (137-145)
[2025-04-30] MEDS: AZITHROMYCIN IV 500 MG in SODIUM CHLORIDE 0.9% IV 250 ML IVPB (08:24)
[2025-04-30] MEDS: ALPRAZolam (*CRX) 0.5 MG TABLET 1 MG PO ×3 (08:25→16:19)
[2025-04-30] MEDS: ROSUVASTATIN 20 MG TABLET 40 MG PO (08:25)
[2025-04-30] MEDS: buPROPion HCL XL (24 HR) 150 MG TABCR PO (08:25)
[2025-04-30] MEDS: BENZONATATE 100 MG CAPSULE 200 MG PO ×3 (08:25→16:19)
[2025-04-30] MEDS: ISOSORBIDE MONONITRATE 30 MG TAB.ER.24H PO (08:25)
[2025-04-30] MEDS: EZETIMIBE 10 MG TABLET PO (08:25)
[2025-04-30] MEDS: MIRABEGRON 50 MG ER TABLET PO (08:25)
[2025-04-30] MEDS: LORATADINE 10 MG TABLET PO (08:26)
[2025-04-30] MEDS: PREGABALIN (*CRX) 75 MG CAPSULE PO ×2 (08:26→16:20)
[2025-04-30] MEDS: PANTOPRAZOLE SOD SESQUIHYDRATE 20 MG TAB PO (08:26)
[2025-04-30] MEDS: FLUTICASONE PROPIONATE 0.05% NA SPR 16 GM BTL (*BKC) 2 SPRAY NASAL (08:38)
[2025-04-30] MEDS: ACETAMINOPHEN 325 MG TABLET 650 MG PO (09:37)
--- NOTE | 2025-04-30 09:45 | P.PNPL_ITS ---
Progress Note: A&P Assessment and Plan (1) Hypoxemia requiring supplemental oxygen: Code(s): R09.02 - Hypoxemia; Z99.81 - Dependence on supplemental oxygen Status: Acute Assessment and Plan: She required O2 this admission, was 82% on room air, improved with nasal cannula, has been on 2 L with saturation 99-100%, needs walk study this morning to see if she qualifies for O2 at discharge. Patients with ILD often need O2 with exertion and sleep. Home O2 study ; Results: She requires 2 L/min with exertion and with sleep; dropped to 88% walking short distance from her Room to elevator, she could not walk more than that due to feeling dizzy. She has a much longer walk from her room at the end of the ibanez at [facility] all the way to dining room. (2) Interstitial lung disease: Code(s): J84.9 - Interstitial pulmonary disease, unspecified Status: Acute Assessment and Plan: NSIP pattern, documented since 2020, managed at [facility] ILD clinic, last visit October 2023, never had a follow up appt, said that she had lack of transportation. Her grandson Linden Davenport [phone] owns his own business, wants to take her to any visits required, and agrees that he will take her to Dr Richard at [facility] as needed. She needs to make a f/u appointment, and needs to consider starting anti- fibrotic; diarrhea and weight loss can occur, not an absolute certainty. She would benefit from a trial of steroids, and I communicate this to Abigail pro her home on prednisone taper 40 mg decreasing every 3 days until weaned to 10 mg and stay at that level until visit in our office. Plan plan: 1) 2 study today shows that she needs O2 at 2 L/min with exertion and sleep. This is a new Oxygen prescription, will get this ordered for [facility]. 2) Home on oral prednisone starting at 40 mg x 3, decrease by 10 mg Q 3 days until she is 10 mg and stay at that level until f/u appt in our office. 3) Stop IV azithromycin, switch to oral 250 mg to complete 5 days for possible pneumonia. 4) She is on nebulized albuterol and ipratropium here, I have no objections to her having this at home. 5) She will call Dr Richard's office for f/u visit for ILD. I told her that this is essential, all her data is there, and I would refer her there if she were a new patient in our practice. 6) Hospital follow up in the pulmonary office May 13 at 10:30 am. This replaces her August 04 new patient visit. Phone call with bruce earlier this morning discussing plans, but he was not aware that she did qualify for new O2 prescription. This is information that I printed and gave to her today, explained everything below. Information for Angelia Salcedo from Dr Hernandez Apr 30, 2025 Your oxygen study today shows that you need O2 at 2 L/min with exertion and sleep. This is a new Oxygen prescription, and we will arrange this for you at [facility]. This is information for her to have at discharge about using oxygen. It is recommended for you to obtain an oximeter. It should be a health grade device, not a sports grade device.? We recommend [employer] brand or other health grade oximeter.? The goal with using supplemental oxygen is to maintain a saturation between 89% and 94% while using supplemental oxygen. Use O2 at 2 L/minute with activity and with sleep. Check your saturation during exercise and 2-3 minutes after exercising when you are resting.? Sometime saturation can decrease during recovery from exercise.? Without oxygen, it is absolutely fine to have a saturation above 94% but it is not okay to use oxygen to get the saturation above 94%. If you are sitting quietly at rest and your saturation is 88% or below, wear O2.? If you are sitting quietly at rest without O2 and your saturation is 90% or above, you do not have to use O2. If you are 95% on room air, do not wear O2. There are potential harms to having a saturation that is too high. More is not better.?? Buying an oximeter online can be much less expensive than buying from a drug store. Online, you may find an oximeter for $10-$20, compared to $50-$90 in a drug store. You will go home on a prednisone taper starting at 40 mg x 3 days, 30 mg for 3 days, 20 mg for 3 days, 10 mg continuously until we see you in the office on May 13 at 10:30 am. Our address is [facility] [address], Physician Office Building ?[address]. This building is on the same campus with [facility] at the far end from the ER and hospital. [address] [place] [address] [address] You will call Dr Richard's office for follow up visit for your interstitial lung disease. This is essential, all of your data is there, and I would refer you there as a new patient with this condition. Subjective Date/time seen: 04/30/25 09:45 Interval history: 04/28/2025. new consult; Angelia Salcedo is a 80-year-old female admitted with increased shortness of breath, low saturation to 82% on room air. She has interstitial lung disease, NSIP pattern, negative serologic evaluation, negative rheumatoid factor, CCP, TIFFANY, dsDNA, TODD, Scl-70; she has hypogammaglobulinemia o IVIG through Dr Little Ortiz U monthly, tracheobronchomalacia, vocal cord dysfunction, had injection of botulinum toxin in left true vocal cord fol 2014, and pneumonia Dec 2022. Since starting IVIG, has had fewer infections. Uses albuterol rescue inhaler p.r.n. She was a patient at the ILD clinic with Dr Richard until she was no longer able to drive to [facility], last note in our chart was October 31, 2023, a year and a half ago. She moved into [facility] about a year ago. She has advanced clubbing on fingernails and toes, is short of breath with any exertion, has decreased memory and urinary incontinence with exertion. She tells me that she has been at [facility] a year because all of her children work, cannot take care of her at home. She is just now adjusting to life in [facility], was really upset about getting moved there, has limited access to getting out and about. Her daughter takes her to shop once a week and they visit for several hours. 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 She smoked 1 ppd or more from age 18 to 29, no vaping or marijuana. PMH: Bipolar/ anxiety and depression, sees Natalie at [facility], is on Wellbutrin, no longer on Geodon. Darby esophagus, NSIP with negative serologic work up, initial CT with ILD changes 2020, hypothyroidism, asthma, TBM, VC dysfunction, Botox injection Left true vocal cord fold 2014, HTN, neuropathy, pneumonia Sept 2022 with stopping of LABA/ICS due to concern for recurrent pneumonia. Rhinitis, used ipratropium nasal spray and Zyrtec. Has used sinus rinses in the past. She sees dermatology for hives, has had itching and redness back of nek for 3 weeks. Sometimes has itching right posterior arm, had a topical treatment recently. Vaccinations: gets annual flu vaccination, had COVID series, had COVID once. 04/30/2025; follow up Room 300. I spoke with her grandson Linden Davenport [phone], said that he is available to take her to all visits, including to [facility]. Transportation is not a barrier to her seeing her doctors at the ILD clinic at [facility]. Grandson owns his business, has been available to take her to all appointments, although she decided not to return to [facility] Clinic. he feels better. She has O2 nasal cannula on, asked several times about needing O2 around the clock. I explained O2 walk study several times, that this is the method that determines if she gets a prescription for O2 at [facility]. The patient has already talked with someone at her facility about O2, although it is not clear that she will qualify yet. She was constipated, had large BM that clogged toilet, lopez to have maintenance break the feces into smaller sizes and unclog toilet. Still, patient declined to take Miralax complaining that she did not want diarrhea. She says that she declined starting Ofev because of the side effect of diarrhea. I told her that it is a potential side effect, and the dose of Ofev can be adjusted to minimize loose stools. Her BP was low 104/42 Dec 20, Isosorbide was held yesterday; today BP was higher 135/57, received isosorbide. Review of Systems Review of Systems: All systems reviewed & are unremarkable except as noted in HPI and below Exam Narrative: GEN: Alert, oriented, not in distress. Poor memory, asks several times about whether or not she will need oxygen around the clock, even after talking about the testing today. Male pattern baldness, has a wig here. NECK: Trachea is midline CHEST: Equal air entry, symmetric excursion, crackles left louder than right posteriorly, no wheezing. CV: Regular S1S2 no m/g/r Extremities : marked clubbing in fingernails; has also on toe nails. No cyanosis, or edema. No calf tenderness. PSYCH: Decreased memory. Normal speech, gait is not tested. Objective Data Vital Signs Vital Signs: Vital Signs - 24 hr 04/29/25 12:00 04/29/25 14:00 04/29/25 14:08 Temperature 36.7 C Pulse Rate 70 63 Respiratory Rate 22 H Blood Pressure 100/53 L Pulse Oximetry 100 Oxygen Delivery Nasal Cannula Oxygen Flow Rate 2 04/29/25 15:00 04/29/25 15:07 04/29/25 16:00 Temperature Pulse Rate 68 69 70 Respiratory Rate 20 20 Blood Pressure Pulse Oximetry Oxygen Delivery Oxygen Flow Rate 04/29/25 20:00 04/29/25 20:00 04/29/25 20:30 Temperature 36.6 C Pulse Rate 61 65 61 Respiratory Rate 18 18 Blood Pressure 110/65 Pulse Oximetry 100 100 Oxygen Delivery Nasal Cannula Oxygen Flow Rate 2 04/29/25 20:39 04/29/25 20:39 04/29/25 20:50 Temperature Pulse Rate 58 L 58 L 62 Respiratory Rate 26 H 26 H 24 H Blood Pressure Pulse Oximetry 99 Oxygen Delivery Nasal Cannula Oxygen Flow Rate 1 04/30/25 00:00 04/30/25 01:54 04/30/25 01:54 Temperature Pulse Rate 76 66 66 Respiratory Rate 16 16 Blood Pressure Pulse Oximetry 99 Oxygen Delivery Nasal Cannula Oxygen Flow Rate 2 04/30/25 02:00 04/30/25 04:00 04/30/25 06:00 Temperature 36.6 C Pulse Rate 68 64 85 Respiratory Rate 16 18 Blood Pressure 137/57 L Pulse Oximetry 94 Oxygen Delivery Oxygen Flow Rate 04/30/25 08:45 04/30/25 08:47 04/30/25 08:51 Temperature Pulse Rate 72 75 Respiratory Rate 16 16 Blood Pressure Pulse Oximetry 99 Oxygen Delivery Nasal Cannula Oxygen Flow Rate 2 Intake/Output Intake/Output: Intake & Output 04/27/25 04/28/25 04/29/25 04/30/25 23:59 23:59 23:59 23:59 Intake Total 1110 3270 1910 Output Total 3450 3850 2800 Balance -2340 -580 -890 Meds/Results Medications: Active Medications Generic Name Dose Route Start Last Admin Trade Name Freq PRN Reason Stop Dose Admin Acetaminophen 650 mg 04/27/25 01:29 04/30/25 09:37 Acetaminophen 325 Mg Tablet PO 650 mg Q4H PRN Administration Mild Pain (1-3) or Fever Albuterol/Ipratropium 3 ml 04/27/25 02:00 04/30/25 08:44 Ipratropium 0.5 Mg/Albuterol Sulfate 2.5 Mg (Base) Ampul.Neb 3 Ml INHALATION 3 ml Q6HRT SINGH Administration Alprazolam 1 mg 04/27/25 09:00 04/30/25 08:25 Alprazolam (*Crx) 0.5 Mg Tablet PO 1 mg QID SINGH Administration Aspirin 81 mg 04/27/25 21:00 04/29/25 20:26 Aspirin 81 Mg Enteric Tablet PO 81 mg HS SINGH Administration Benzonatate 200 mg 04/28/25 17:00 04/30/25 08:25 Benzonatate 100 Mg Capsule PO 200 mg TID SINGH Administration Bupropion HCl 150 mg 04/28/25 09:00 04/30/25 08:25 Bupropion Hcl Xl (24 Hr) 150 Mg Tabcr PO 150 mg DAILY SINGH Administration Ezetimibe 10 mg 04/27/25 09:00 04/30/25 08:25 Ezetimibe 10 Mg Tablet PO 10 mg DAILY SINGH Administration Ergocalciferol 1,250 mcg 05/05/25 09:00 Ergocalciferol (Vitamin D2) 1,250 Mcg (50,000 Units) Capsule PO 05/05/25 09:01 ONCE ONE Famotidine 20 mg 04/27/25 21:00 04/29/25 20:27 Famotidine 20 Mg Tablet PO 20 mg HS SINGH Administration Fluticasone Propionate 2 spray 04/27/25 09:00 04/30/25 08:38 Fluticasone Propionate 0.05% Na Spr 16 Gm Btl (*Bkc) NASAL 2 spray QAM SINGH Administration Guaifenesin/Dextromethorphan 10 ml 04/28/25 22:00 04/30/25 08:25 Guaifenesin/Dextromethorphan 10 Ml Udc PO 10 ml Q4HR SINGH Administration Azithromycin 500 mg/ Sodium 250 mls @ 250 mls/hr 04/27/25 08:00 04/30/25 08:24 Chloride IVPB 05/01/25 09:59 250 mls/hr QAM SINGH Administration Isosorbide Mononitrate 30 mg 04/28/25 09:00 04/30/25 08:25 Isosorbide Mononitrate 30 Mg Tab.Er.24h PO 30 mg DAILY SINGH Administration Levothyroxine Sodium 100 mcg 04/28/25 06:30 04/30/25 05:27 Levothyroxine Sodium 100 Mcg Tablet PO 100 mcg DAILY@0630 SINGH Administration Linaclotide 145 mcg 04/28/25 06:30 04/30/25 05:27 Linaclotide 145 Mcg Capsule PO 145 mcg DAILY@0630 SINGH Administration Loratadine 10 mg 04/28/25 09:00 04/30/25 08:26 Loratadine 10 Mg Tablet PO 10 mg QAM SINGH Administration Mirabegron 50 mg 04/28/25 09:00 04/30/25 08:25 Mirabegron 50 Mg Er Tablet PO 50 mg DAILY SINGH Administration Montelukast Sodium 10 mg 04/27/25 21:00 04/29/25 20:28 Montelukast Sodium 10 Mg Tablet PO 10 mg HS SINGH Administration Ondansetron HCl 4 mg 04/27/25 01:29 04/28/25 18:29 Ondansetron Inj 4 Mg/2 Ml Vial IV PUSH 4 mg Q4H PRN Administration Nausea Pantoprazole Sodium 20 mg 04/28/25 09:00 04/30/25 08:26 Pantoprazole Sod Sesquihydrate 20 Mg Tab PO 20 mg DAILY SINGH Administration Polyethylene Glycol 17 gm 04/30/25 09:00 04/30/25 08:25 Polyethylene Glycol 3350 17 Gm Powd.Pack PO 17 gm QAM SINGH Administration Pregabalin 75 mg 04/27/25 17:00 04/30/25 08:26 Pregabalin (*Crx) 75 Mg Capsule PO 75 mg BID SINGH Administration Pregabalin 150 mg 04/27/25 21:00 04/29/25 20:27 Pregabalin (*Crx) 75 Mg Capsule PO 150 mg HS SINGH Administration Rosuvastatin Calcium 40 mg 04/27/25 09:00 04/30/25 08:25 Rosuvastatin 20 Mg Tablet PO 40 mg DAILY SINGH Administration Senna/Docusate Sodium 2 tab 04/27/25 21:00 04/29/25 20:26 Senna/Docusate Sodium Tablet PO 2 tab QHS SINGH Administration Radiology Results: ITS Impressions Head CT 04/27/25 06:49 IMPRESSION: 1. No acute intracranial findings. Chest X-Ray 04/27/25 09:25 IMPRESSION: 1. Chronic pulmonary fibrosis. 2. Superimposed edema or pneumonitis cannot be excluded. Chest/Abdomen/Pelvis CTA 04/27/25 21:24 IMPRESSION: 1. No pulmonary embolism. 2. NSIP pattern chronic initial lung disease. 3. Large ball of stool at the rectum consistent with constipation with some stranding in the surrounding perirectal fat which could be due to secondary stercoral colitis. Labs Labs: Laboratory Results - last 24 hr 04/30/25 05:18 WBC 5.6 RBC 3.95 L Hgb 10.5 L Hct 35.3 L MCV 89.4 MCH 26.6 MCHC 29.7 L RDW 13.3 Plt Count 171 MPV 11.1 H Sodium 136 L Potassium 4.4 Chloride 105 Carbon Dioxide 32 H Anion Gap -1 L BUN 3 L Creatinine 0.53 L Estim Creat Clear Calc 58 Estimated GFR > 60 Glucose 93 Calcium 8.0 L
--- NOTE | 2025-04-30 11:48 | HOMEO2EVAL ---
Evaluation was performed at [facility] Home Oxygen Evaluation RC: Home Oxygen (O2) Evaluation Start: 04/30/25 09:48 Freq: ONCE Status: Active Protocol: RPE Activity Type Activity Date Activity User E-sign Co-sign Detail Recorded Client Recorded Date Recorded By Document 04/30/25 11:00 DJO [email or web address] 04/30/25 11:47 DJO Document 04/30/25 11:05 [email or web address] [email or web address] 04/30/25 11:47 DJO Document 04/30/25 11:05 DJO [email or web address] 04/30/25 11:47 DJO Document 04/30/25 11:10 [email or web address] [email or web address] 04/30/25 11:47 DJO Document 04/30/25 11:15 [email or web address] [email or web address] 04/30/25 11:47 DJO 04/30/25 04/30/25 04/30/25 11:00 11:05 11:05 Home O2 Evaluation [Oxygen] -Test Phase Resting Exercise Resting -Oxygen Delivery Room Air Room Air Room Air -Oxygen Flow Rate (L/min) [Pulse Oximetry] -Pulse Oximetry (90-100 %) 94 87 L 94 [Pulse Rate] -Pulse Rate (60-100 beats/min) 80 98 85 [Charges] -Evaluation Charges O2 Evaluation by Pulmonary 04/30/25 04/30/25 11:10 11:15 Home O2 Evaluation [Oxygen] -Test Phase Exercise Exercise -Oxygen Delivery Nasal Cannula Nasal Cannula -Oxygen Flow Rate (L/min) 1 2 [Pulse Oximetry] -Pulse Oximetry (90-100 %) 88 L 91 [Pulse Rate] -Pulse Rate (60-100 beats/min) 99 101 H [Charges] -Evaluation Charges
--- NOTE | 2025-04-30 15:02 | PCRCNOTE ---
HOME O2 EVAL COMPLETE, 2L REST AND NOC. SET UP WITH IV& RESP CARE. TANK IN ROOM FOR DISCHARGE
--- NOTE | 2025-04-30 16:00 | PM.DS ---
DS: Summary Time Spent with Patient Time attestation: Total time spent providing and/or coordinating discharge services: DS: Data Data Completed and Pending Labs on day of discharge: Labs from last 24 hours 04/30/25 05:18 WBC 5.6 RBC 3.95 L Hgb 10.5 L Hct 35.3 L MCV 89.4 MCH 26.6 MCHC 29.7 L RDW 13.3 Plt Count 171 MPV 11.1 H Sodium 136 L Potassium 4.4 Chloride 105 Carbon Dioxide 32 H Anion Gap -1 L BUN 3 L Creatinine 0.53 L Estim Creat Clear Calc 58 Estimated GFR > 60 Glucose 93 Calcium 8.0 L Discharge Plan Discharge Attending physician on discharge: Arabella Schuler Consulting providers: Sriram Ontiveros Discharging Clinician: Abigail Rodriguez Patient Disposition: [facility] Activity: as tolerated Diet: as tolerated Discharge Instructions: Please use 2L oxygen by NC with activity and while sleeping. Please refer to the printed instructions provided to you by pulmonology in addition to these discharge instructions. Please call your PCP or present to the ER if you have worsening shortness of breath, chest pain, fever greater than 100.4F, nausea, vomiting or diarrhea Please finish your antibiotics even if you are feeling better. Patient Instructions: Antibiotic Form Patient Language: Irish Stand Alone Forms: General Discharge Information Follow-up/Referrals: Chanell Hernandez MD [Physician, Pulmonology] Referral Note: Visit on May 13, 2025 at 10:30 am Cara,MD Naila [Primary Care Provider] Referral Note: call for an appointment to be seen within 1-2 weeks of discharge Discharge Medications: New polyethylene glycol 3350 [Miralax] 17 gram Powder In Packet 17 g PO QAM Qty: 30 0RF azithromycin 500 mg tablet 500 mg PO DAILY 1 Days Qty: 1 0RF Rx Instructions: take on 05/01/25 at 9 am prednisone 10 mg tablet 10 mg PO DIRECTED Qty: 48 0RF Rx Instructions: Take 4 tabs x 3 days, then take 3 tabs x 3 days, then take 2 tabs x 3 days, then take 1 tablet daily Continued fluticasone propionate 50 mcg/actuation blister with device 1 inh inhalation DAILY cetirizine [Allergy Relief (cetirizine)] 10 mg tablet 10 mg PO DAILY alprazolam 1 mg tablet 1 mg PO QID sennosides-docusate sodium 8.6-50 mg tablet 2 tab-cap PO QHS nitroglycerin 0.4 mg tablet, sublingual 0.4 mg sublingual Q5M PRN (Reason: chest pain) Rx Instructions: do not exceed 3 doses per episode montelukast 10 mg tablet 10 mg PO HS aspirin 81 mg tablet 81 mg PO HS albuterol sulfate [Ventolin HFA] 90 mcg/actuation HFA aerosol inhaler 2 inh inhalation Q8H PRN (Reason: shortness of breath or wheezing) ezetimibe 10 mg tablet 10 mg PO DAILY rosuvastatin 40 mg tablet 40 mg PO DAILY cyanocobalamin (vitamin B-12) 1,000 mcg/mL kit 1,000 mcg subcut MONTHLY acetaminophen 500 mg capsule 500 mg PO Q8H carboxymethylcellulose sodium 0.5 % drops 1 drp EACH EYE TID triamcinolone acetonide [24 Hour Nasal Allergy] 55 mcg aerosol,spray 2 spray intranasal DAILY Rx Instructions: administer into each nostril ergocalciferol (vitamin D2) [Vitamin D2] 1,250 mcg (50,000 unit) capsule 1,250 mcg PO .BIWEEKLY Patient Comments: takes on Monday bupropion HCl 150 mg tablet extended release 24 hr 150 mg PO DAILY isosorbide mononitrate 30 mg tablet extended release 24 hr 30 mg PO DAILY levothyroxine 100 mcg tablet 100 mcg PO 0630 Linzess 145 mcg capsule 145 mcg PO DAILY mirabegron [Myrbetriq] 50 mg tablet extended release 24 hr 50 mg PO DAILY pantoprazole 20 mg tablet,delayed release (DR/EC) 20 mg PO DAILY pregabalin 75 mg capsule 75 mg PO BID pregabalin 150 mg capsule 150 mg PO HS famotidine 20 mg tablet 20 mg PO HS Date of admission: 04/28/25 11:30 Primary Care Provider: Cara,Naila Admitting Provider: Nolberto Mccabe Attending physician on admission: Nolberto Mccabe Condition: Stable
== END 2025-04-30 16:35 | DRG 190 ==
LOC: ANHED 04-27 01:40 → ANH3MEDSUR 04-27 02:19
PROVIDERS: Nurse Practitioner; Admitting Provider Internal Medicine; Emergency Provider Student in an Organized Health Care Education/Training Program; PCP Internal Medicine; Visit Provider Nurse Practitioner Adult Health
DX: J47.9 Bronchiectasis, uncomplicated (principal); J96.21 Acute and chronic respiratory failure with hypoxia; J84.89 Other specified interstitial pulmonary diseases; E03.9 Hypothyroidism, unspecified; E78.00 Pure hypercholesterolemia, unspecified; F31.9 Bipolar disorder, unspecified; F41.9 Anxiety disorder, unspecified; K22.70 Barrett's esophagus without dysplasia; K59.00 Constipation, unspecified; M79.7 Fibromyalgia; Z20.822 Contact with and (suspected) exposure to COVID-19; Z79.82 Long term (current) use of aspirin; Z90.49 Acquired absence of other specified parts of digestive tract; Z87.891 Personal history of nicotine dependence
CPT/HCPCS: 36415; 70450; 71045; 71275; 74177; 80048; 80053; 81003; 83735; 84439; 84443; 84480; 85025; 85027; 87637; 93005; 94618; 94640; 97110; 97116; 97161; 97165; 97530; 97535; 99285; A9270; G0378; J0456; J2405; J7050; Q9967